=== PATIENT | male | born 1955 | race Caucasian/White ===

== ENCOUNTER 2020-09-14 15:35 | Outpatient (REF) | payer OTHER, SELFPAY ==
--- NOTE | 2020-09-14 15:40 | XR_ITS ---
EXAMINATION: XR CHEST CLINICAL INFORMATION: Cough COMPARISON: Chest radiographs 11/24/2018, 09/23/2018 TECHNIQUE: 2 views of the chest were obtained. FINDINGS: There is hyperinflation/COPD. The lungs are clear. The vascularity is normal. There is no airspace consolidation or groundglass opacity. No effusion. The heart is normal in size. The hilar and mediastinal contours are normal. There are degenerative changes thoracic spine. XR/XR chest 2V IMPRESSION: Hyperinflation. Lungs clear.
== END 2020-09-14 15:36 | disposition home or self-care (01) ==
LOC: HO.HMGCX 15:35
PROVIDERS: PCP Internal Medicine; Visit Provider Nurse Practitioner Family
DX: R05 Cough (principal)
CPT/HCPCS: 71046

== ENCOUNTER 2020-12-08 09:50 | Outpatient (REF) | payer OTHER, SELFPAY ==
[2020-12-08 11:50] LABS: Alanine Aminotransferase 22 U/L (0-40); Albumin Level 4.3 g/dL (3.5-5.0); Alkaline Phosphatase 77 U/L (39-117); Anion Gap 16 (12-20); Aspartate Amino Transferase 33 U/L (5-37); Bilirubin Direct 0.4 mg/dL (0.0-0.5); Blood Urea Nitrogen 19 mg/dL (9-16); Calcium 9.4 mg/dL (8.4-10.2); Carbon Dioxide 26 mmol/L (22-29); Chloride 99 mmol/L (96-108); Estimated Glomerular Filt Rate > 60; Glucose Random 87 mg/dL (60-115); Potassium 5.1 mmol/L (3.3-5.1); Sodium 136 mmol/L (135-145); Total Protein 7.3 g/dL (6.5-8.0)
[2020-12-08 12:22] LABS: Amphetamine Screen Urine Not Detected (Not Detect); Barbiturates, Urine Not Detected (Not Detect); Benzodiazepines Screen Urine Not Detected (Not Detect); Cannabinoid Screen Urine Not Detected (Not Detect); Cocaine Screen Urine Not Detected (Not Detect); Opiate Screen Urine POSITIVE (Not Detect); Phencyclidine Screen Urine Not Detected (Not Detect)
[2020-12-09 08:17] LABS: LDL Cholesterol Direct 75 mg/dL (<100)
[2020-12-10 12:47] LABS: Codeine, Ur NEGATIVE ng/mL (<50); Hydrocodone, Ur NEGATIVE ng/mL (<50); Hydromorphone, Ur NEGATIVE ng/mL (<50); Morphine, Ur NEGATIVE ng/mL (<50); Norhydrocodone, Ur NEGATIVE ng/mL (<50); Noroxycodone, Ur 5199 ng/mL (<50); Oxycodone, Ur 2502 ng/mL (<50); Oxymorphone, Ur 510 ng/mL (<50)
== END 2020-12-08 09:51 | disposition home or self-care (01) ==
LOC: HO.HMGCLDS 09:50
PROVIDERS: PCP Internal Medicine; Visit Provider Internal Medicine
DX: M96.1 Postlaminectomy syndrome, not elsewhere classified (principal); J44.9 Chronic obstructive pulmonary disease, unspecified
CPT/HCPCS: 80048; 80076; 80307; 80364; 80365; 83721

== ENCOUNTER → 2021-02-20 09:45 | Outpatient (BNVA) | payer OTHER, SELFPAY | PROVIDERS: PCP Internal Medicine; Visit Provider Physician Assistant ==

== ENCOUNTER 2021-02-26 12:19 | Outpatient (REF) | payer OTHER, SELFPAY ==
--- NOTE | ~2021-02-26 | XR_ITS ---
EXAMINATION: XR RIBS, RIGHT CLINICAL INFORMATION: Urodynamic COMPARISON: None TECHNIQUE: 3 views of the right ribs were obtained. FINDINGS: The lungs are hyperinflated but clear of acute process. The heart size and pulmonary vascularity is normal. There is mild spondylosis of dorsal spine. Multiple views of right ribs reveal healed right lateral 10th and 11th ribs. There is no acute rib fracture or bony abnormality. The soft tissues are normal. XR/XR ribs RT min 3V w CXR1V IMPRESSION: Unremarkable chest exam. Healed right lateral 10th and 11th rib fractures.
== END 2021-02-26 12:20 | disposition home or self-care (01) ==
LOC: HO.HMGCX 12:19
PROVIDERS: PCP Internal Medicine; Visit Provider Hospitalist
DX: R07.81 Pleurodynia (principal)
CPT/HCPCS: 71101

== ENCOUNTER 2021-04-11 11:10 | Day surgery (SDC) | payer OTHER, SELFPAY ==
--- NOTE | 2021-04-10 12:08 | HO.ANESPROP2 ---
Documented by User: Cora Lopez 04/10/21 12:09 HPI - Anesthesia Eval Consult details Narrative: 65yo M for Upper Endoscopy and Colonoscopy chronic prn opioid PMFSH Active Problems Active Problems: All Active Problems (Updated 02/26/21 @ 12:25 by Christopher Miller DO) Hordeolum externum right upper eyelid (Acute) Rib pain on right side (Acute) Heartburn (Acute) Colon cancer screening (Acute) Muscle spasms of neck (Acute) Flank pain (Acute) Cough (Acute) Chest wall pain (Acute) Pain management (Acute) Opioid dependence (Acute) Hypertension, essential (Acute) GERD (gastroesophageal reflux disease) (Acute) Smokers' cough (Acute) Drug induced constipation (Acute) COPD (chronic obstructive pulmonary disease) (Acute) Tobacco abuse (Acute) Asthma (Acute) Failed back syndrome (Acute) Past Medical History Medical History Asthma COPD (chronic obstructive pulmonary disease) Drug induced constipation Failed back syndrome GERD (gastroesophageal reflux disease) Heartburn Hypertension, essential Muscle spasms of neck Opioid dependence Pain management Smokers' cough Tobacco abuse Family History Family History Father HTN (hypertension) Lung cancer Mother HTN (hypertension) Dementia Maternal Grandmother No problems noted. Maternal Grandfather No problems noted. Paternal Grandfather No problems noted. Paternal Grandmother No problems noted. Brother No problems noted. Brother No problems noted. Daughter No problems noted. Daughter No problems noted. Sister No problems noted. Sister No problems noted. Sister No problems noted. Sister No problems noted. Surgical History Surgical History History of colonoscopy History of fusion of cervical spine History of laminectomy History of repair of laceration History of rotator cuff surgery Social History Social History Household Members: Family Alcohol intake: current Alcohol intake frequency: a few times a month Patient Tobacco Use Status: Current everyday Tobacco user Tobacco use type: Cigarette Cigarette Packs Per Day: 2 Cigarettes Per Day: 40.0 Smoked in Last 30 Days: Yes Use of substances other than those prescribed or required for medical reasons: No Are you DNR?: No Advance Directives: No Advance Directives Information Provided: Yes Nutrition Risks: No Nutritional Risk Poor oral hygiene: No Current occupational status: disabled Meds Allergies Allergy/AdvReac Type Severity Reaction Status Date / Time No Known Allergies Allergy Verified 02/26/21 12:10 Exam Exam Date and Time: April 10, 2021 1208 Assessment and Plan Assessment Anesthesia Assessment: Chart Reviewed Documented by User: Millicent Peguero 04/11/21 13:39 [facility] Past Medical History Medical History Asthma COPD (chronic obstructive pulmonary disease) Drug induced constipation Failed back syndrome GERD (gastroesophageal reflux disease) Heartburn Hypertension, essential Muscle spasms of neck Opioid dependence Pain management Smokers' cough Tobacco abuse Family History Family History Father HTN (hypertension) Lung cancer Mother HTN (hypertension) Dementia Maternal Grandmother No problems noted. Maternal Grandfather No problems noted. Paternal Grandfather No problems noted. Paternal Grandmother No problems noted. Brother No problems noted. Brother No problems noted. Daughter No problems noted. Daughter No problems noted. Sister No problems noted. Sister No problems noted. Sister No problems noted. Sister No problems noted. Surgical History Surgical History History of colonoscopy History of fusion of cervical spine History of laminectomy History of repair of laceration History of rotator cuff surgery Social History Social History Household Members: Family Alcohol intake: current Alcohol intake frequency: a few times a month Patient Tobacco Use Status: Current everyday Tobacco user Tobacco use type: Cigarette Cigarette Packs Per Day: 2 Cigarettes Per Day: 40.0 Smoked in Last 30 Days: Yes Use of substances other than those prescribed or required for medical reasons: No Are you DNR?: No Advance Directives: No Advance Directives Information Provided: Yes Nutrition Risks: No Nutritional Risk Poor oral hygiene: No Current occupational status: disabled Meds Allergies Allergy/AdvReac Type Severity Reaction Status Date / Time No Known Allergies Allergy Verified 02/26/21 12:10 Exam Airway Mallampati Class: II TM Dist: >3cm Neck ROM: Full Heart: RrR Lungs: CtA Assessment and Plan Assessment Anesthesia Assessment: Anesthesia Plan Discussed and Chart Reviewed Final Anesthetic Review NPO: Yes (Sip water medicine) ASA Class: III Final Preanesthetic Review: No Changes in Pt Med Stat and Consent Obtained/Reviewed Patient Risk: Intermediate Procedure Risk: Intermediate Anesthetic Plan Anesthetic Plan: MAC: Disposition: Standard PACU
[2021-04-11 12:27] VITALS: BMI 21.7
[2021-04-11 12:33] VITALS: BP 155/88; PULSE 81; RESP 16; TEMP 36.7; O2SAT 96
[2021-04-11] MEDS: Lactated Ringers 1,000 ML 100 ML IVCONT (12:49)
--- NOTE | 2021-04-11 13:31 | MHC.SHP ---
Pre-Procedural Eval Section B Chief Complaint: Screening, heartburn Relevant Family History (Specify if Yes): No Relevant Social History: Tobacco Use Present Medications: see Short Stay Collaborative assessment Medical History: Significant History (Asthma COPD (chronic obstructive pulmonary disease) Drug induced constipation Failed back syndrome GERD (gastroesophageal reflux disease) Heartburn Hypertension, essential Muscle spasms of neck Opioid dependence Pain management Smokers' cough Tobacco abuse) History of Previous Operations: Relevant previous surgery/procedure and date(s) (History of colonoscopy History of fusion of cervical spine History of laminectomy History of repair of laceration History of rotator cuff surgery) Allergies: Allergies Allergy/AdvReac Type Severity Reaction Status Date / Time No Known Allergies Allergy Verified 02/26/21 12:10 Review of Systems Sugical H&P ROS: Negative: Constitution, Cardiovascular, Respiratory, Neurological, Psychiatric, Hem-Onc, Allergic/Immunologic, Gastrointestinal, Genitourinary, Musculoskeletal, Integumentary, Endocrine and Eyes/Ears/Nose/Throat Exam Surgical H&P Exam: Normal: HEENT, Normal: Heart, Normal: Lungs, Normal: Extremities, Normal: Abdomen, Normal: Skin and Normal: Neurological Plan Diagnosis/Plan: Unchanged I have reviewed the history and physical and performed a pertinent physical examination on my patient. No changes have occurred unless specified.
--- NOTE | 2021-04-11 13:33 | PM.OP ---
Brief Operative Note Date of Service: 04/11/21 Pre-op diagnosis: GERD, colon screening Post-op diagnosis: same Procedure: see op note Surgeon: Ivette Davies MD Anesthesia: MAC Was an M[place]casin Sewer used for this Procedure?: No Estimated blood loss (mL): 0 Condition: stable Disposition: PACU
--- NOTE | 2021-04-11 13:35 | P.OP_ITS ---
Operative Note Operative Note Date of Service: 04/11/21 Narrative: Operative Information Procedure Description: EGD, Colonoscopy FLEXIBLE TRANSORAL UPPER GASTROINTESTINAL ENDOSCOPY AND COLONOSCOPY PROCEDURE NOTE UPPER ENDOSCOPY Consent: Indications for the procedure and potential complications of bleeding, perforation, reaction to medications and missed diagnosis were discussed with the patient and informed consent was obtained. Instrument: Olympus GIF H 190 J mid size upper endoscope Monitoring: Vital signs and clinical assessment, continuous EKG monitoring, Pulse oximetry, Carbon Dioxide monitoring and blood pressure monitoring were done throughout the procedure. Procedure: The patient was placed in the left lateral decubitis position and pre-procedure medications were administered and a bite block was placed. The endoscope was inserted into the mouth and advanced under direct vision to the third part of duodenum. A careful inspection was made as the upper endoscope was withdrawn including a retroflexed examination of the proximal stomach; Findings and interventions are described below. Findings: Larynx:normal Esophagus: GE junction at 38 cm, diaphragm hiatus at 40 cm, 2 cm sliding haital hernia, with mild esophagitis Stomach:Patchy erythema. Biopsies were obtained. Grade 3 flap valve on retroflexed examination of the cardia. LES was lax. Duodenum: mild bulbar duodenitis Intervention: Biopsies as noted above COLONOSCOPY Instrument: Olympus variable stiffness adult scope 190L Colonoscopy Monitoring: Vital signs and clinical assessment, continuous EKG monitoring, Pulse oximetry, Carbon Dioxide monitoring and blood pressure monitoring were done throughout the procedure. Colon withdrawal time was 10 minutes. Procedure: The patient was placed in the left lateral decubitis position and pre-procedure medications were administered. After a digital rectal examination of the ano-rectum, the video colonoscope was inserted into the rectum and advanced through the colon to the cecum The colonoscope was slowly withdrawn in a retrograde panoramic fashion and the colon mucosa was carefully examined including a retroflexed view of the rectum. Findings and interventions are described below. Procedure Difficulty: moderate Findings: [place] diverticulosis, moderate severity, more on left Terminal Ileum-not seen due to poor prep Cecum:normal Ascending Colon: normal Transverse Colon -normal Descending Colon:normal Sigmoid Colon: normal Rectum: Retroflexion with moderate sized internal hemorrhoids, grade I, 10 mm sessile polyp removed with cold snare Anorectum - normal Colon preparation: [place] Bowel Preparation Scale Right colon; 1 Transverse colon: 1 Left colon; 2 (0 = Unprepared colon segment with mucosa not seen due to solid stool that cannot be cleared. 1 = Portion of mucosa of the colon segment seen, but other areas of the colon segment not well seen due to staining, residual stool and/or opaque liquid. 2 = Minor amount of residual staining, small fragments of stool and/or opaque liquid, but mucosa of colon segment seen well. 3 = Entire mucosa of colon segment seen well with no residual staining, small fragments of stool or opaque liquid) Impression and Post Procedure Diagnosis: Endoscopy Findings: hiatal hernia gastritis duodenitis esophagitis, Colonoscopy Findings: polyp internal hemorrhoids diverticular disease Plan: Await Pathology results Repeat Colonoscopy in 6-12 months with 2 days of clear prep next time High fiber diet leaflet avoid straining at stool, epsom salts and sitz bath, anusol supps or cream as needed Above findings were reviewed with the patient and relevant handouts were provided if indicated.
[2021-04-11 14:15] VITALS: BP 117/71; PULSE 62; RESP 16; TEMP 36.5; O2SAT 97
[2021-04-11 14:30] VITALS: BP 145/82; PULSE 70; RESP 16; O2SAT 97
== END 2021-04-11 15:31 | disposition home or self-care (01) ==
PROVIDERS: PCP Internal Medicine; Visit Provider Internal Medicine Gastroenterology
PROC: (CPT 45385; principal; 2021-04-11 13:40)
DX: Z12.11 Encounter for screening for malignant neoplasm of colon (principal); K62.1 Rectal polyp; K57.30 Diverticulosis of large intestine without perforation or abscess without bleeding; K64.0 First degree hemorrhoids; K21.9 Gastro-esophageal reflux disease without esophagitis; K29.50 Unspecified chronic gastritis without bleeding; K29.80 Duodenitis without bleeding; K20.90 Esophagitis, unspecified without bleeding; K44.9 Diaphragmatic hernia without obstruction or gangrene; F17.210 Nicotine dependence, cigarettes, uncomplicated
CPT/HCPCS: 45385; 43239; 88305; 88342

== ENCOUNTER → 2021-04-26 11:26 | Outpatient (BNVA) | payer OTHER, SELFPAY | PROVIDERS: Visit Provider Physician Assistant ==

== ENCOUNTER 2021-05-02 09:34 | Outpatient (REF) | payer OTHER, SELFPAY ==
[2021-05-02 11:24] LABS: MANUAL DIFF FLAG NO
[2021-05-02 11:40] LABS: Basophils Absolute Auto 0.1 X10*3/uL (0.0-0.2); Basophils Percent Auto 0.7 % (0-2); Eosinophils Absolute Auto 0.2 X10*3/uL (0.0-0.4); Eosinophils Percent Auto 2.2 % (0-4); Hemoglobin 14.2 g/dl (14.0-18.0); Imm Gran Abs Auto 0.01 X10*3/uL (0.00-0.03); Imm Gran Pct Auto 0.1 % (0.0-0.4); Lymphocytes Absolute Auto 2.6 X10*3/uL (1.2-4.9); Lymphocytes Percent Auto 35.7 % (20-40); Mean Corpuscular HGB Conc 33.8 g/dl (31.0-36.0); Mean Corpuscular Hemoglobin 33.2 pg (27.0-33.0); Mean Corpuscular Volume 98.1 fL (80-98); Mean Platelet Volume 9.8 fL (9.4-12.4); Monocytes Absolute Auto 0.4 X10*3/uL (0.1-1.2); Monocytes Percent Auto 5.7 % (2-11); Neutrophils Absolute Auto 4.1 X10*3/uL (2.0-8.3); Neutrophils Percent Auto 55.6 % (45-73); Platelet Count 266 X10*3/uL (160-400); Red Blood Count 4.28 X10*6/uL (4.60-5.80); Red Cell Distribution Width 13.2 % (11.0-16.0); White Blood Count 7.3 X10*3/uL (4.8-10.8)
[2021-05-02 11:51] LABS: Alanine Aminotransferase 15 U/L (0-40); Alkaline Phosphatase 91 U/L (39-117); Anion Gap 13 (12-20); Aspartate Amino Transferase 21 U/L (5-37); Bilirubin Total 0.6 mg/dL (0.0-1.0); Blood Urea Nitrogen 21 mg/dL (9-16); Calcium 9.6 mg/dL (8.4-10.2); Carbon Dioxide 28 mmol/L (22-29); Chloride 98 mmol/L (96-108); Estimated Glomerular Filt Rate > 60; Glucose Random 137 mg/dL (60-115); Potassium 4.7 mmol/L (3.3-5.1); Sodium 134 mmol/L (135-145)
[2021-05-02 12:00] LABS: Amphetamine Screen Urine Not Detected (Not Detect); Barbiturates, Urine Not Detected (Not Detect); Benzodiazepines Screen Urine Not Detected (Not Detect); Cannabinoid Screen Urine Not Detected (Not Detect); Cocaine Screen Urine Not Detected (Not Detect); Opiate Screen Urine Not Detected (Not Detect); Phencyclidine Screen Urine Not Detected (Not Detect)
[2021-05-03 07:01] LABS: LDL Cholesterol Direct 87 mg/dL (<100)
== END 2021-05-02 09:35 | disposition home or self-care (01) ==
LOC: HO.HMGCLDS 09:34
PROVIDERS: PCP Internal Medicine; Visit Provider Internal Medicine
DX: I10 Essential (primary) hypertension (principal); J44.9 Chronic obstructive pulmonary disease, unspecified; J45.909 Unspecified asthma, uncomplicated; M96.1 Postlaminectomy syndrome, not elsewhere classified; Z72.0 Tobacco use; F11.20 Opioid dependence, uncomplicated; R52 Pain, unspecified
CPT/HCPCS: 80053; 80307; 80364; 80365; 83721; 85025

== ENCOUNTER 2021-06-22 08:39 | Outpatient (REF) | payer OTHER, SELFPAY ==
--- NOTE | ~2021-06-22 | XR_ITS ---
EXAMINATION: XR HAND/WRIST, RIGHT CLINICAL INFORMATION: Right wrist pain. COMPARISON: None. TECHNIQUE: AP, oblique, and lateral views of the right hand and wrist. FINDINGS: No acute fracture or dislocation. Prominent joint space narrowing with marginal osteophytes at the triscaphe, 1st carpometacarpal, 1st carpometacarpal, and 1st carpometacarpal joints. More mild joint space narrowing with tiny marginal osteophytes scattered throughout the metacarpophalangeal and interphalangeal joints. No osseous erosion. No abnormal soft tissue calcification. 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
== END 2021-06-22 08:40 | disposition home or self-care (01) ==
LOC: HO.HMGCX 08:39
PROVIDERS: PCP Internal Medicine; Visit Provider Internal Medicine
DX: M25.531 Pain in right wrist (principal)
CPT/HCPCS: 73110; 73130

== ENCOUNTER 2021-07-14 09:24 | Emergency (ER) | payer OTHER, SELFPAY ==
--- NOTE | ~2021-07-14 | XR_ITS ---
EXAMINATION: RIGHT HAND AND WRIST, FOREARM AND ELBOW X-RAYS CLINICAL INFORMATION: Pain post fall COMPARISON: Previous right hand and wrist x-ray 06/22/2021 TECHNIQUE: 4 views of the right hand and wrist, 2 views of the right forearm and 2 views of the right elbow FINDINGS: Right hand and wrist: Bone alignment is normal. No acute fracture or dislocation is seen. There may be old trauma to the fifth metacarpal bone. There is arthritis at the fifth ASSISTED joint with joint space narrowing and osteophyte formation. There is arthritis at the first ASSISTED joint and trapezoid trapezium scaphoid joints. There are well-corticated soft tissue ossifications seen over the dorsal wrist on the lateral view likely related to old trauma.There is diffuse soft tissue swelling over the wrist. Right forearm: Bone alignment is normal. No fracture or dislocation is seen. Joint spaces are normal. Soft tissues are normal. Right elbow: There is question of a fracture of the coronoid process of the ulna. No other fracture is seen. Bone alignment is normal. There is a small joint effusion. There is a small osteophyte at the triceps tendon insertion to the olecranon. XR/XR elbow RT min 3V IMPRESSION: Right hand and wrist: Diffuse soft tissue swelling over the wrist. No acute fracture seen. Arthritis. Right forearm: Unremarkable exam Right elbow: Question small avulsion fracture of the coronary process of the ulna. Small elbow joint effusion.
--- NOTE | ~2021-07-14 | CT_ITS ---
EXAMINATION: CT HEAD WITHOUT CONTRAST CLINICAL INFORMATION: Fall. Head injury. COMPARISON: None TECHNIQUE: Contiguous axial imaging was performed from the skull base to vertex without intravenous administration of contrast. This CT examination was performed using dose optimization techniques as appropriate, variously including the following: *Automated exposure control *Adjustment of mA and/or kV according to patient size (this includes techniques or standardized protocols for targeted exams where dose is matched to indication/reason for exam; i.e. extremities or head) *Use of iterative reconstruction technique DLP: 748 mGy-cm FINDINGS: There is no evidence of an extra-axial collection. There is no evidence of intra-axial or extra-axial hemorrhage. Age-related prominence of the ventricles and extra-axial CSF spaces. Fernando-white matter differentiation is normal. No mass, mass effect or infarct is seen. There is laboratory change in the frontal and ethmoid sinuses, left greater than right. There are bilateral nasal bone fractures of uncertain age. No skull fracture is seen. Mastoid air cells and middle ears are clear. CT/CT head/brain wo con IMPRESSION: No acute intracranial findings. Bilateral nasal bone fractures of uncertain age. Inflammatory changes in the frontal and ethmoid sinuses.
--- NOTE | ~2021-07-14 | XR_ITS ---
EXAMINATION: RIGHT HAND AND WRIST, FOREARM AND ELBOW X-RAYS CLINICAL INFORMATION: Pain post fall COMPARISON: Previous right hand and wrist x-ray 06/22/2021 TECHNIQUE: 4 views of the right hand and wrist, 2 views of the right forearm and 2 views of the right elbow FINDINGS: Right hand and wrist: Bone alignment is normal. No acute fracture or dislocation is seen. There may be old trauma to the fifth metacarpal bone. There is arthritis at the fifth LONGTERM joint with joint space narrowing and osteophyte formation. There is arthritis at the first LONGTERM joint and trapezoid trapezium scaphoid joints. There are well-corticated soft tissue ossifications seen over the dorsal wrist on the lateral view likely related to old trauma.There is diffuse soft tissue swelling over the wrist. Right forearm: Bone alignment is normal. No fracture or dislocation is seen. Joint spaces are normal. Soft tissues are normal. Right elbow: There is question of a fracture of the coronoid process of the ulna. No other fracture is seen. Bone alignment is normal. There is a small joint effusion. There is a small osteophyte at the triceps tendon insertion to the olecranon. XR/XR hand wrist RT IMPRESSION: Right hand and wrist: Diffuse soft tissue swelling over the wrist. No acute fracture seen. Arthritis. Right forearm: Unremarkable exam Right elbow: Question small avulsion fracture of the coronary process of the ulna. Small elbow joint effusion.
--- NOTE | ~2021-07-14 | CT_ITS ---
EXAMINATION: CT CERVICAL SPINE WITHOUT CONTRAST CLINICAL INFORMATION: 15 foot fall COMPARISON: Previous cervical spine MRI February 2010 and cervical spine x-ray November 2018 TECHNIQUE: Axial images through the cervical spine without contrast. Sagittal and coronal reconstructions on the technologist workstation were performed. This CT examination was performed using dose optimization techniques as appropriate, variously including the following: *Automated exposure control *Adjustment of mA and/or kV according to patient size (this includes techniques or standardized protocols for targeted exams where dose is matched to indication/reason for exam; i.e. extremities or head) *Use of iterative reconstruction technique DLP: 481 mGy-cm FINDINGS: There is mild curvature of the lower cervical and upper thoracic spine to the left. Alignment is otherwise normal. There is orthopedic hardware seen at C4-C5 and C5-C6 and C6-C7. There is bony ankylosis at the C5-C6 disc space level. Orthopedic hardware appears intact. No fracture or dislocation is seen. There is degenerative spondylosis at C3-C4, C7-T1 and T1-T2. There is bilateral facet arthritis. There are degenerative changes at the C1 dens articulation. Prevertebral soft tissues are normal. There is mild bilateral carotid calcification. CT/CT cervical spine wo con IMPRESSION: Post surgical changes from C4-C5 to C6-C7. Degenerative changes. No fracture or dislocation.
--- NOTE | ~2021-07-14 | XR_ITS ---
EXAMINATION: RIGHT HAND AND WRIST, FOREARM AND ELBOW X-RAYS CLINICAL INFORMATION: Pain post fall COMPARISON: Previous right hand and wrist x-ray 06/22/2021 TECHNIQUE: 4 views of the right hand and wrist, 2 views of the right forearm and 2 views of the right elbow FINDINGS: Right hand and wrist: Bone alignment is normal. No acute fracture or dislocation is seen. There may be old trauma to the fifth metacarpal bone. There is arthritis at the fifth ALF joint with joint space narrowing and osteophyte formation. There is arthritis at the first ALF joint and trapezoid trapezium scaphoid joints. There are well-corticated soft tissue ossifications seen over the dorsal wrist on the lateral view likely related to old trauma.There is diffuse soft tissue swelling over the wrist. Right forearm: Bone alignment is normal. No fracture or dislocation is seen. Joint spaces are normal. Soft tissues are normal. Right elbow: There is question of a fracture of the coronoid process of the ulna. No other fracture is seen. Bone alignment is normal. There is a small joint effusion. There is a small osteophyte at the triceps tendon insertion to the olecranon. XR/XR forearm RT 2V IMPRESSION: Right hand and wrist: Diffuse soft tissue swelling over the wrist. No acute fracture seen. Arthritis. Right forearm: Unremarkable exam Right elbow: Question small avulsion fracture of the coronary process of the ulna. Small elbow joint effusion.
--- NOTE | ~2021-07-14 | CT_ITS ---
EXAMINATION: CT CHEST WITH CONTRAST CLINICAL INFORMATION: 15 foot fall yesterday COMPARISON: Previous chest and right rib x-rays February [address] March 2017 TECHNIQUE: Multidetector volumetric CT imaging of the chest was obtained after the administration of 85 mL of Omnipaque 350 intravenous contrast without immediate adverse reactions. Axial MIP volume rendering provided. Sagittal and coronal reformatted images were obtained. This CT examination was performed using dose optimization techniques as appropriate, variously including the following: *Automated exposure control *Adjustment of mA and/or kV according to patient size (this includes techniques or standardized protocols for targeted exams where dose is matched to indication/reason for exam; i.e. extremities or head) *Use of iterative reconstruction technique DLP: 481 mGy-cm FINDINGS: MOLDER SETTER: Postsurgical changes to the cervical and lumbar spine. LUNGS: There is a 4 mm right lower lobe nodule axial image 298 series 7. This is new from previous exam. Small right upper lobe nodules are stable. The lungs are otherwise clear. MEDIASTINUM: There is mild coronary artery calcification. The mediastinum is otherwise normal. PLEURA: There is no pleural effusion. No pleural mass or thickening. AXILLA: No lymphadenopathy. OSSEOUS STRUCTURES: There are degenerative changes of the spine. There are old bilateral rib fractures. No acute fracture is seen. There are degenerative changes at the shoulder joints. There are postsurgical changes to the lower cervical spine. CT/CT chest w con IMPRESSION: No acute findings. New 4 mm right lower lobe pulmonary nodule from March 2017 exam.
--- NOTE | ~2021-07-14 | CT_ITS ---
EXAMINATION: CT ABDOMEN AND PELVIS WITH CONTRAST CLINICAL INFORMATION: 15 foot fall COMPARISON: Previous CT of the abdomen and pelvis January 2012 TECHNIQUE: Multidetector volumetric images were obtained from the superior aspect of the liver through the pubic symphysis following administration 85 mL of Omnipaque 350 intravenous contrast. Sagittal and coronal reformatted images were obtained on the technologist's workstation. Oral contrast: Yes This CT examination was performed using dose optimization techniques as appropriate, variously including the following: *Automated exposure control *Adjustment of mA and/or kV according to patient size (this includes techniques or standardized protocols for targeted exams where dose is matched to indication/reason for exam; i.e. extremities or head) *Use of iterative reconstruction technique DLP: 454 mGy-cm FINDINGS: LIVER, GALLBLADDER, AND BILIARY TREE: There is a small low-attenuation liver lesion in the central right lobe of the liver measuring 4 mm probably representing a cyst. The liver is otherwise unremarkable. The gallbladder is unremarkable. There is no biliary duct dilatation. PANCREAS: Unremarkable. SPLEEN: Unremarkable. ADRENAL GLANDS: Unremarkable. KIDNEYS AND URETERS: The kidneys are normal in size, shape, and attenuation. No hydronephrosis, hydroureter, or calculi seen. No perinephric stranding. BLADDER: Unremarkable. GASTROINTESTINAL TRACT: There is diverticulosis of the colon. Small and large bowel is otherwise unremarkable. The appendix is unremarkable. The stomach is unremarkable. No ascites or free air is seen. ABDOMINAL WALL: No significant hernia is appreciated. LYMPH NODES: Normal. VASCULAR: Unremarkable. PELVIC VISCERA: Unremarkable. OSSEOUS STRUCTURES: There are old left posterior 10th and 11th rib fractures. No acute fracture is seen. There are postsurgical changes at L5-S1. There is anterior fusion hardware and prosthetic disc interspace her. There is mild anterior subluxation of bowel 5 with respect to S1 that is unchanged. There is a left screw across the L4-L5 facet joint. There is degenerative disc disease at L5-S1. There is lower lumbar spine facet arthritis and there may be an old L5 pars defect. CT/CT abdomen pelvis w con IMPRESSION: No acute findings. Diverticulosis. Postsurgical changes to the lower lumbar spine. Old left posterior lower rib fractures.
[2021-07-14 09:27] VITALS: BP 131/73; PULSE 89; RESP 16; TEMP 36.9; O2SAT 97; BMI 22.3
[2021-07-14 10:00] LABS: MANUAL DIFF FLAG NO
[2021-07-14] MEDS: Acetaminophen 325 MG TABLET 975 MG PO (10:04)
[2021-07-14] MEDS: oxyCODONE HCl Immed Release 5 MG TABLET 10 MG PO (10:04)
[2021-07-14 10:08] LABS: Basophils Percent Auto 0.4 % (0-2); Eosinophils Absolute Auto 0.3 X10*3/uL (0.0-0.4); Eosinophils Percent Auto 3.5 % (0-4); Hematocrit 38.8 % (42-52); Hemoglobin 13.9 g/dl (14.0-18.0); Imm Gran Abs Auto 0.02 X10*3/uL (0.00-0.03); Imm Gran Pct Auto 0.2 % (0.0-0.4); Lymphocytes Absolute Auto 1.8 X10*3/uL (1.2-4.9); Lymphocytes Percent Auto 22.6 % (20-40); Mean Corpuscular HGB Conc 35.8 g/dl (31.0-36.0); Mean Corpuscular Hemoglobin 34.6 pg (27.0-33.0); Mean Corpuscular Volume 96.5 fL (80-98); Mean Platelet Volume 8.8 fL (9.4-12.4); Monocytes Absolute Auto 0.7 X10*3/uL (0.1-1.2); Monocytes Percent Auto 9.2 % (2-11); Neutrophils Absolute Auto 5.2 X10*3/uL (2.0-8.3); Neutrophils Percent Auto 64.1 % (45-73); Platelet Count 266 X10*3/uL (160-400); Red Blood Count 4.02 X10*6/uL (4.60-5.80); Red Cell Distribution Width 12.7 % (11.0-16.0); White Blood Count 8.1 X10*3/uL (4.8-10.8)
[2021-07-14 10:09] LABS: Prothrombin Time 11.3 SEC (9.9-13.0)
[2021-07-14 10:18] LABS: Magnesium 2.5 mg/dL (1.6-2.6)
[2021-07-14 10:20] LABS: Alanine Aminotransferase 22 U/L (0-40); Albumin Level 3.9 g/dL (3.5-5.0); Alkaline Phosphatase 84 U/L (39-117); Anion Gap 15 (12-20); Aspartate Amino Transferase 40 U/L (5-37); Bilirubin Total 0.9 mg/dL (0.0-1.0); Blood Urea Nitrogen 18 mg/dL (9-16); Calcium 9.3 mg/dL (8.4-10.2); Carbon Dioxide 24 mmol/L (22-29); Chloride 102 mmol/L (96-108); Estimated Glomerular Filt Rate > 60; Glucose Random 130 mg/dL (60-115); Potassium 4.6 mmol/L (3.3-5.1); Sodium 136 mmol/L (135-145); Total Protein 6.5 g/dL (6.5-8.0)
[2021-07-14 11:15] VITALS: RESP 19
[2021-07-14] MEDS: iohexoL 350 MG/ML 100 ML INFUS..BTL IV (11:32)
--- NOTE | 2021-07-14 12:13 | ED.FALL ---
HPI - Fall General Chief Complaint: Extremity Problem Stated Complaint: R WRIST R SIDE BACK INJ Time Seen by Provider: 07/14/21 09:37 Source: patient Mode of arrival: ambulatory Limitations: no limitations History of Present Illness HPI Narrative: 65-year-old male presenting to the ED after mechanical fall where he was fishing in the [employer] with a thanh and he slipped and fell backwards approximately 15 ft and since then has been having pain to his right hand/wrist/forearm/elbow and right lower back. He reports he is unsure if he hit his head. Although he reports he did not lose consciousness. He is not on any blood thinners. He denies any symptoms prior to the fall. He denies prolonged down time. He reports pain to right hand/wrist/forearm/elbow and right lower back after the fall otherwise denies any other symptoms. MD complaint: fall Onset (ago): day(s) (Yesterday) Fall from: standing Fall witnessed: yes, by family (His friend he was fishing with) Place fall occurred: street Loss of consciousness: none Prolonged down time: no Symptoms prior to fall: none Context: tripped/slipped Location of injury: back Location of injury - extremities: right: elbow, forearm and hand Severity: severe Severity scale (1-10): >10 Quality: aching Associated symptoms (after fall): other (Only pain to right lower back and right hand/wrist/forearm/elbow) Related Data Previous Rx's Medication Instructions Recorded omeprazole 20 mg capsule,delayed 20 mg PO DAILY #30 cap 02/20/21 release sucralfate 100 mg/mL oral 10 ml PO BID 30 Days #600 ml 02/20/21 suspension (Carafate) albuterol sulfate 90 mcg/actuation 1 inh INHALATION QID PRN 30 Days 03/12/21 aerosol inhaler (ProAir HFA) #18 g amlodipine 10 mg tablet 10 mg PO DAILY 90 Days #90 tab 03/12/21 cetirizine 10 mg tablet 10 mg PO DAILY 90 Days #90 tab 03/12/21 fluticasone propionate 220 1 puff PO BID 30 Days #12 g 03/12/21 mcg/actuation HFA aerosol inhaler cyclobenzaprine 5 mg tablet 5 mg PO BEDTIME PRN 30 Days #30 tab 07/10/21 gabapentin 600 mg tablet 600 mg PO BEDTIME 30 Days #30 tab 07/10/21 lisinopril 40 mg tablet 40 mg PO DAILY 90 Days #90 tab 07/11/21 montelukast 10 mg tablet 10 mg PO DAILY 90 Days #90 tab 07/11/21 oxycodone 10 mg tablet 10 mg PO TID PRN 30 Days #90 tab 07/13/21 acetaminophen 500 mg tablet 1,000 mg PO QID PRN #14 tab 07/14/21 (Tylenol Extra Strength) ibuprofen 800 mg tablet 800 mg PO Q8H PRN #14 tab 07/14/21 lidocaine HCl 4 % topical cream 1 appl TOPICAL BID PRN #120 g 07/14/21 (Aspercreme (lidocaine HCl)) Allergies Allergy/AdvReac Type Severity Reaction Status Date / Time No Known Allergies Allergy Verified 07/13/21 07:50 Review of Systems Review of Systems: Constitutional : No changes in activity, No lethargy, No recent prior head injury, No agitation, No increased fussiness ENT/Mouth : No Ear Pain, No Nasal discharge/drainage Eyes: No Eye Pain, No Swelling, No Redness, No Foreign Body, No Vision Changes Cardiovascular : No Chest Pain, No SOB Respiratory : No Cough Gastrointestinal : No Nausea, No Vomiting, No abdominal Pain Genitourinary : No Dysuria, No Urinary Frequency, No Urinary Incontinence, No Urgency, No Flank Pain Musculoskeletal : Positive joint pain to right hand/wrist/forearm/elbow, positive back pain/injury, No neck stiffness, Skin : No lacerations Neuro : No unsteady gait, No Paresthesias, No Loss of Consciousness, No altered mental status, No Headache Yes all other systems are reviewed and are negative [facility] Past Medical History Attestation statement: The following information was validated with the patient. Medical History Asthma COPD (chronic obstructive pulmonary disease) Drug induced constipation Failed back syndrome GERD (gastroesophageal reflux disease) Heartburn Hypertension, essential Muscle spasms of neck Opioid dependence Pain management Smokers' cough Tobacco abuse Surgical History History of colonoscopy History of fusion of cervical spine History of laminectomy History of repair of laceration History of rotator cuff surgery Family History Family History Father HTN (hypertension) Lung cancer Mother HTN (hypertension) Dementia Maternal Grandmother No problems noted. Maternal Grandfather No problems noted. Paternal Grandfather No problems noted. Paternal Grandmother No problems noted. Brother No problems noted. Brother No problems noted. Daughter No problems noted. Daughter No problems noted. Sister No problems noted. Sister No problems noted. Sister No problems noted. Sister No problems noted. Social History Social History Household Members: Family Housing: House Alcohol intake: current Alcohol intake frequency: a few times a month Patient Tobacco Use Status: Current everyday Tobacco user Tobacco use type: Cigarette Cigarette Packs Per Day: 1 Cigarettes Per Day: 40.0 Advance Directives: No Advance Directives Information Provided: No Current occupational status: disabled Physical Exam Vital Signs: Vital Signs: Last Vital Signs Temp 98.4 F 07/14/21 09:27 Pulse 89 07/14/21 09:27 Resp 19 07/14/21 11:15 BP 131/73 07/14/21 09:27 Pulse Ox 97 07/14/21 09:27 Body Mass Index 22.3 vital signs have been reviewed as normal and appeared to be correct. Blood pressure normal. Heart rate normal. Respiration rate normal. Temperature normal. Oxygen saturation normal. Appearance: Alert. Oriented X3. No acute distress. Head: Normal external exam. Normocephalic. Atraumatic. No Morales signs noted. No raccoon eyes noted. Eyes: PERRLA. EOMI. Conjunctiva and sclera normal. Eyelids normal. ENT: EAC normal. TM's Normal. No septal hematoma noted. No hemotympanum noted. Pharynx normal. Uvula midline. Moist mucous membranes. No trismus noted. No drooling noted. No muffled voice noted. Neck: Normal inspection. Neck supple. FROM. No adenopathy. Thyroid Normal. No meningeal signs. No neck mass noted. CVS: Normal heart rate and rhythm. Heart sound normal. No murmurs noted. Pulses normal throughout. Respiratory: No respiratory distress. Painless inspiration. Breath sounds normal. No wheezes/rales/rhonchi noted. Chest nontender. No accessory muscle usage noted or decreased air movement noted. Abdomen: Soft and nontender. Bowel sounds normal in all 4 quadrants. No distention noted. No organomegaly noted. No visible injury noted. Back: No CVA tenderness. Full range of motion noted. No obvious deformities, or edema. Mild para-spinal muscular tenderness from lumbar region to coccyx. Full ROM in back and lower extremities. 5/5 strength hip extension/flexion, abduction, adduction. Mild Lumbar pain with hip flexion against resistance. Straight leg raise test negative on right; Straight leg raise test negative on left; Reflexes normal ankle and knee bilaterally; EHL motor strength normal bilaterally. No rashes/lesion/induration/fluctuance or signs infection noted. Skin: Skin warm and dry. Normal skin color. Normal skin turgor. No rashes/lesions/lacerations noted. Extremities: Patient with moderate tenderness to palpation to right hand at the dorsal aspect with moderate soft tissue swelling and ecchymosis noted along with the right wrist an anatomical snuffbox along with right forearm and right elbow. No obvious deformities although patient does have limited range of motion. No obvious ligamentous laxity or injury noted. No muscle injury noted. Otherwise all other extremities exhibit normal range of motion and nontender. Neuro: Oriented X 3. No motor deficit. No sensory deficit. Reflexes normal. Patient has a normal steady gait. Course Course Course Narrative: 65-year-old male presenting to the ED with complaints of right hand/wrist/forearm/elbow and lumbar back pain after he had a mechanical fall where he was fishing with a friend and he slipped and fell falling approximately 15 ft backwards while on the ground not from a height in his right arm got caught in between rocks and since then he has been having pain. He is unsure if he hit his head although denies loss of consciousness. He denies being on any blood thinners. He denies any other injuries complaints or concerns at this time. On exam patient is alert and oriented x3. In pain otherwise no other acute distress. No focal neuro deficits are noted. Lungs are clear to auscultation. CV RRR. Abdomen soft nontender no signs of trauma. Patient is in his outpatient to right paraspinous lumbar aspect although no obvious deformities or step-offs noted. Patient is neuro intact bilaterally distally on all 4 extremities. Reflexes intact bilaterally distally in all 4 extremities. Patient with tenderness of patient to right hand/forearm/wrist/elbow with limited range of motion and soft tissue swelling and ecchymosis noted although no obvious ligamentous laxity or obvious deformities or signs of infection. CT scan of brain obtained and revealed bilateral nasal bone fractures of uncertain age and inflammatory agents in the frontal and ethmoid sinuses otherwise no other acute processes. Therefore I printed this resulted out and handed to the patient he reports that he did not hit his nose he fell backwards did not injure his face therefore he believes these are old and he has broken his nose on several occasions. CT scan of cervical spine revealed chronic changes no acute processes were noted. CT scan of chest revealed new 4 mm right lower lobe pulmonary nodule for since March 2017 exam therefore printed this resulted out and gave it to the patient and instructed him to follow-up with his PCP regarding this pulmonary nodule. CT scan of chest and abdomen and pelvis with IV contrast revealed diverticulosis and postsurgical changes to the lower lumbar spine and old left posterior lower rib cage fractures otherwise no other acute processes were noted. This result was also printed out and given to the patient and he was informed about this and he knew about his old rib fractures. X-ray of right hand/wrist/forearm revealed chronic changes and soft tissue swelling although no acute fractures were seen although due to patient having moderate pain and soft tissue swelling will place him in a thumb spica. Right elbow x-ray revealed question for small avulsion fracture of the coronary process of the ulna and a small joint effusion otherwise no other acute processes therefore I consulted with orthopedics physician music assistant Nino and she recommended a sling and follow-up therefore patient was placed in a sling as well. Will DC home with instructions to return if any new or worsening symptoms and instructions to continue taking his previously prescribed 10 mg oxycodone from his pain management as previously prescribed and to return if any new or worsening symptoms. Patient understands agrees with this plan. Procedures Orthopedic Splinting/Casting Injury #1: Side: right Upper Extremity Injury Location: elbow, forearm, wrist and hand Upper Extremity Immobilizer: sling/shoulder immobilizer and thumb spica MDM - Fall Medical Records Attestation: I reviewed the patient's medical records. Lab Data Attestation: I reviewed the patient's lab results. Result diagrams: 07/14/21 09:57 07/14/21 09:57 Labs: Lab Results 07/14/21 07/14/21 07/14/21 Range/Units 09:57 09:57 09:57 WBC 8.1 (4.8-10.8) X10*3/uL RBC 4.02 L (4.60-5.80) X10*6/uL Hgb 13.9 L (14.0-18.0) g/dl Hct 38.8 L (42-52) % MCV 96.5 (80-98) fL MCH 34.6 H (27.0-33.0) pg MCHC 35.8 (31.0-36.0) g/dl RDW 12.7 (11.0-16.0) % Plt Count 266 (160-400) X10*3/uL MPV 8.8 L (9.4-12.4) fL Immature Gran % (Auto) 0.2 (0.0-0.4) % Neut % (Auto) 64.1 (45-73) % Lymph % (Auto) 22.6 (20-40) % Pickett % (Auto) 9.2 (2-11) % Eos % (Auto) 3.5 (0-4) % Baso % (Auto) 0.4 (0-2) % Lymph # (Auto) 1.8 (1.2-4.9) X10*3/uL Pickett # (Auto) 0.7 (0.1-1.2) X10*3/uL Eos # (Auto) 0.3 (0.0-0.4) X10*3/uL Baso # (Auto) 0.0 (0.0-0.2) X10*3/uL Abs Immat Gran (auto) 0.02 (0.00-0.03) X10*3/uL Absolute Neuts (auto) 5.2 (2.0-8.3) X10*3/uL Absolute Nucleated RBC 0.000 (0.0-0.012) X10*3/uL Nucleated RBC % (auto) 0.0 (0.0-0.2) /100WBC PT 11.3 (9.9-13.0) SEC INR 1.0 (0.9-1.1) Sodium (135-145) mmol/L Potassium (3.3-5.1) mmol/L Chloride (96-108) mmol/L Carbon Dioxide (22-29) mmol/L Anion Gap (12-20) BUN (9-16) mg/dL Creatinine (0.5-1.4) mg/dL Estim Creat Clear Calc Estimated GFR Random Glucose (60-115) mg/dL Calcium (8.4-10.2) mg/dL Magnesium 2.5 (1.6-2.6) mg/dL Total Bilirubin (0.0-1.0) mg/dL AST (5-37) U/L ALT (0-40) U/L Alkaline Phosphatase (39-117) U/L Total Protein (6.5-8.0) g/dL Albumin (3.5-5.0) g/dL 07/14/21 Range/Units 09:57 WBC (4.8-10.8) X10*3/uL RBC (4.60-5.80) X10*6/uL Hgb (14.0-18.0) g/dl Hct (42-52) % MCV (80-98) fL MCH (27.0-33.0) pg MCHC (31.0-36.0) g/dl RDW (11.0-16.0) % Plt Count (160-400) X10*3/uL MPV (9.4-12.4) fL Immature Gran % (Auto) (0.0-0.4) % Neut % (Auto) (45-73) % Lymph % (Auto) (20-40) % Pickett % (Auto) (2-11) % Eos % (Auto) (0-4) % Baso % (Auto) (0-2) % Lymph # (Auto) (1.2-4.9) X10*3/uL Pickett # (Auto) (0.1-1.2) X10*3/uL Eos # (Auto) (0.0-0.4) X10*3/uL Baso # (Auto) (0.0-0.2) X10*3/uL Abs Immat Gran (auto) (0.00-0.03) X10*3/uL Absolute Neuts (auto) (2.0-8.3) X10*3/uL Absolute Nucleated RBC (0.0-0.012) X10*3/uL Nucleated RBC % (auto) (0.0-0.2) /100WBC PT (9.9-13.0) SEC INR (0.9-1.1) Sodium 136 (135-145) mmol/L Potassium 4.6 (3.3-5.1) mmol/L Chloride 102 (96-108) mmol/L Carbon Dioxide 24 (22-29) mmol/L Anion Gap 15 (12-20) BUN 18 H (9-16) mg/dL Creatinine 1.02 (0.5-1.4) mg/dL Estim Creat Clear Calc 76.0 Estimated GFR > 60 Random Glucose 130 H (60-115) mg/dL Calcium 9.3 (8.4-10.2) mg/dL Magnesium (1.6-2.6) mg/dL Total Bilirubin 0.9 (0.0-1.0) mg/dL AST 40 H D (5-37) U/L ALT 22 (0-40) U/L Alkaline Phosphatase 84 (39-117) U/L Total Protein 6.5 (6.5-8.0) g/dL Albumin 3.9 (3.5-5.0) g/dL Imaging Data Hand/wrist/forearm/elbow x-ray of right side: Attestation: I personally reviewed and interpreted this imaging study as follows: Radiologist's impression: FINDINGS: Right hand and wrist: Bone alignment is normal. No acute fracture or dislocation is seen. There may be old trauma to the fifth metacarpal bone. There is arthritis at the fifth LONGTERM joint with joint space narrowing and osteophyte formation. There is arthritis at the first LONGTERM joint and trapezoid trapezium scaphoid joints. There are well-corticated soft tissue ossifications seen over the dorsal wrist on the lateral view likely related to old trauma.There is diffuse soft tissue swelling over the wrist. Right forearm: Bone alignment is normal. No fracture or dislocation is seen. Joint spaces are normal. Soft tissues are normal. Right elbow: There is question of a fracture of the coronoid process of the ulna. No other fracture is seen. Bone alignment is normal. There is a small joint effusion. There is a small osteophyte at the triceps tendon insertion to the olecranon. XR/XR hand wrist RT IMPRESSION: Right hand and wrist: Diffuse soft tissue swelling over the wrist. No acute fracture seen. Arthritis. ? Right forearm: Unremarkable exam ? Right elbow: Question small avulsion fracture of the coronary process of the ulna. Small elbow joint effusion.? CT scan of brain without contrast: Attestation: I personally reviewed and interpreted this imaging study as follows: Radiologist's impression: FINDINGS: There is no evidence of an extra-axial collection. There is no evidence of intra-axial or extra-axial hemorrhage. Age-related prominence of the ventricles and extra-axial CSF spaces. Fernando-white matter differentiation is normal. No mass, mass effect or infarct is seen. There is laboratory change in the frontal and ethmoid sinuses, left greater than right. There are bilateral nasal bone fractures of uncertain age. No skull fracture is seen. Mastoid air cells and middle ears are clear. CT/CT head/brain wo con IMPRESSION: No acute intracranial findings. Bilateral nasal bone fractures of uncertain age. Inflammatory changes in the frontal and ethmoid sinuses. CT scan of cervical spine without contrast: Attestation: I personally reviewed and interpreted this imaging study as follows: Radiologist's impression: FINDINGS: There is mild curvature of the lower cervical and upper thoracic spine to the left. Alignment is otherwise normal. There is orthopedic hardware seen at C4-C5 and C5-C6 and C6-C7. There is bony ankylosis at the C5-C6 disc space level. Orthopedic hardware appears intact. No fracture or dislocation is seen. There is degenerative spondylosis at C3-C4, C7-T1 and T1-T2. There is bilateral facet arthritis. There are degenerative changes at the C1 dens articulation. Prevertebral soft tissues are normal. There is mild bilateral carotid calcification. CT/CT cervical spine wo con IMPRESSION: Post surgical changes from C4-C5 to C6-C7. Degenerative changes. No fracture or dislocation.? CT scan of chest with contrast: Attestation: I personally reviewed and interpreted this imaging study as follows: Radiologist's impression: FINDINGS: CRYSTAL FINISHER: Postsurgical changes to the cervical and lumbar spine. LUNGS: There is a 4 mm right lower lobe nodule axial image 298 series 7. This is new from previous exam. Small right upper lobe nodules are stable. The lungs are otherwise clear.? MEDIASTINUM: There is mild coronary artery calcification. The mediastinum is otherwise normal.? PLEURA: There is no pleural effusion. No pleural mass or thickening.? AXILLA: No lymphadenopathy.? OSSEOUS STRUCTURES: There are degenerative changes of the spine. There are old bilateral rib fractures. No acute fracture is seen. There are degenerative changes at the shoulder joints. There are postsurgical changes to the lower cervical spine. CT/CT chest w con IMPRESSION: No acute findings. New 4 mm right lower lobe pulmonary nodule from March [address] scan of abdomen and pelvis with IV contrast: Attestation: I personally reviewed and interpreted this imaging study as follows: Radiologist's impression: FINDINGS: LIVER, GALLBLADDER, AND BILIARY TREE: There is a small low-attenuation liver lesion in the central right lobe of the liver measuring 4 mm probably representing a cyst. The liver is otherwise unremarkable. The gallbladder is unremarkable. There is no biliary duct dilatation. PANCREAS: Unremarkable.? SPLEEN: Unremarkable.? ADRENAL GLANDS: Unremarkable.? KIDNEYS AND URETERS: The kidneys are normal in size, shape, and attenuation. No hydronephrosis, hydroureter, or calculi seen. No perinephric stranding. ? BLADDER: Unremarkable.? GASTROINTESTINAL TRACT: There is diverticulosis of the colon. Small and large bowel is otherwise unremarkable. The appendix is unremarkable. The stomach is unremarkable. No ascites or free air is seen.? ABDOMINAL WALL: No significant hernia is appreciated.? LYMPH NODES: Normal. VASCULAR: Unremarkable. PELVIC VISCERA: Unremarkable.? OSSEOUS STRUCTURES: There are old left posterior 10th and 11th rib fractures. No acute fracture is seen. There are postsurgical changes at L5-S1. There is anterior fusion hardware and prosthetic disc interspace her. There is mild anterior subluxation of bowel 5 with respect to S1 that is unchanged. There is a left screw across the L4-L5 facet joint. There is degenerative disc disease at L5-S1. There is lower lumbar spine facet arthritis and there may be an old L5 pars defect. CT/CT abdomen pelvis w con IMPRESSION: No acute findings. Diverticulosis. Postsurgical changes to the lower lumbar spine. Old left posterior lower rib fractures.? Critical Care Time Critical Care Time Critical Care Time: Yes Total Critical Care Time: 60 Attestation: I personally attest to this time spent taking care of the patient Discharge Plan Discharge Clinical Impression: Fall, Sprain and strain of right hand, Right wrist sprain, Lumbar strain, Closed fracture of right elbow, Incidental pulmonary nodule, Benign liver cyst Patient Disposition: Home, Self-Care Instructions: Elbow Fracture (ED), How to Use a Sling (ED), Low Back Strain (ED), Pulmonary Nodules (ED), Wrist Sprain (ED) Additional Instructions: You are in pain management therefore I cannot give you narcotic prescription please call them and explained to them that you have a right elbow fracture. Return if any new or worsening symptoms and follow-up with orthopedics. Prescriptions: New lidocaine HCl [Aspercreme (lidocaine HCl)] 4 % cream 1 appl topical BID PRN (Reason: pain) Qty: 120 RF: 0 ibuprofen 800 mg tablet 800 mg PO Q8H PRN (Reason: pain) Qty: 14 RF: 0 acetaminophen [Tylenol Extra Strength] 500 mg tablet 1,000 mg PO QID PRN (Reason: fever or pain) Qty: 14 RF: 0 No Action fluticasone propionate 220 mcg/actuation HFA aerosol inhaler 1 puff PO BID 30 Days Qty: 12 RF: 0 cetirizine 10 mg tablet 10 mg PO DAILY 90 Days Qty: 90 RF: 0 amlodipine 10 mg tablet 10 mg PO DAILY 90 Days Qty: 90 RF: 0 albuterol sulfate [ProAir HFA] 90 mcg/actuation HFA aerosol inhaler 1 inh inhalation QID PRN (Reason: shortness of breath or wheezing) 30 Days Qty: 18 RF: 5 gabapentin 600 mg tablet 600 mg PO BEDTIME 30 Days Qty: 30 RF: 0 cyclobenzaprine 5 mg tablet 5 mg PO BEDTIME PRN (Reason: muscle spasm) 30 Days Qty: 30 RF: 0 montelukast 10 mg tablet 10 mg PO DAILY 90 Days Qty: 90 RF: 0 lisinopril 40 mg tablet 40 mg PO DAILY 90 Days Qty: 90 RF: 0 oxycodone 10 mg tablet 10 mg PO TID PRN (Reason: pain) 30 Days Qty: 90 RF: 0 omeprazole 20 mg capsule,delayed release(DR/EC) 20 mg PO DAILY Qty: 30 RF: 5 sucralfate [Carafate] 100 mg/mL suspension 10 ml PO BID 30 Days Qty: 600 RF: 2 Referrals: Jenny Machuca MD [Physician] - 07/17/21 (To make a follow-up appointment within the next week) Lloyd Woods MD [Primary Care Provider] - 2 days Print Language: Citizen Of [place]
== END 2021-07-14 12:44 | disposition home or self-care (01) ==
PROVIDERS: Physician Assistant Medical; Emergency Provider Student in an Organized Health Care Education/Training Program; PCP Internal Medicine
DX: S52.044A Nondisplaced fracture of coronoid process of right ulna, initial encounter for closed fracture (principal); S39.012A Strain of muscle, fascia and tendon of lower back, initial encounter; S63.91XA Sprain of unspecified part of right wrist and hand, initial encounter; W01.198A Fall on same level from slipping, tripping and stumbling with subsequent striking against other object, initial encounter; R91.8 Other nonspecific abnormal finding of lung field; K76.89 Other specified diseases of liver; I10 Essential (primary) hypertension; F11.20 Opioid dependence, uncomplicated; J41.0 Simple chronic bronchitis; F17.210 Nicotine dependence, cigarettes, uncomplicated; Y93.19 Activity, other involving water and watercraft; Y92.828 Other wilderness area as the place of occurrence of the external cause; Y99.8 Other external cause status
CPT/HCPCS: 29125; 36415; 70450; 71260; 72125; 73080; 73090; 73110; 73130; 74177; 80053; 83735; 85025; 85610; 99284; 99291; Q9967

== ENCOUNTER → 2021-08-15 14:21 | Outpatient (BNVA) | payer OTHER, SELFPAY | PROVIDERS: PCP Internal Medicine; Visit Provider Internal Medicine Pulmonary Disease | DX: R91.1 Solitary pulmonary nodule (principal); J44.9 Chronic obstructive pulmonary disease, unspecified | CPT/HCPCS: 99202 ==

== ENCOUNTER 2021-10-24 10:11 | Outpatient (REF) | payer OTHER, SELFPAY ==
[2021-10-24 12:02] LABS: Amphetamine Screen Urine Not Detected (Not Detect); Barbiturates, Urine Not Detected (Not Detect); Benzodiazepines Screen Urine Not Detected (Not Detect); Cannabinoid Screen Urine Not Detected (Not Detect); Cocaine Screen Urine Not Detected (Not Detect); Fentanyl, urine Not Detected (Not Detect); Opiate Screen Urine Not Detected (Not Detect); Phencyclidine Screen Urine Not Detected (Not Detect)
[2021-10-24 12:16] LABS: Alanine Aminotransferase 18 U/L (0-40); Albumin Level 4.1 g/dL (3.5-5.0); Alkaline Phosphatase 94 U/L (39-117); Anion Gap 13 (12-20); Aspartate Amino Transferase 27 U/L (5-37); Bilirubin Total 0.6 mg/dL (0.0-1.0); Blood Urea Nitrogen 18 mg/dL (9-16); Calcium 9.3 mg/dL (8.4-10.2); Carbon Dioxide 26 mmol/L (22-29); Chloride 100 mmol/L (96-108); Estimated Glomerular Filt Rate > 60; Glucose Random 122 mg/dL (60-115); Potassium 4.9 mmol/L (3.3-5.1); Sodium 134 mmol/L (135-145); Total Protein 7.3 g/dL (6.5-8.0)
[2021-10-26 04:36] LABS: LDL Cholesterol Direct 92 mg/dL (<100)
== END 2021-10-24 10:12 | disposition home or self-care (01) ==
LOC: HO.HMGCLDS 10:11
PROVIDERS: PCP Internal Medicine; Visit Provider Internal Medicine
DX: F11.20 Opioid dependence, uncomplicated (principal); I10 Essential (primary) hypertension; J44.9 Chronic obstructive pulmonary disease, unspecified; M96.1 Postlaminectomy syndrome, not elsewhere classified; Z72.0 Tobacco use
CPT/HCPCS: 80053; 80307; 80364; 80365; 83721

== ENCOUNTER → 2022-01-02 09:55 | Outpatient (BNVA) | payer OTHER, SELFPAY | PROVIDERS: PCP Internal Medicine; Visit Provider Internal Medicine Pulmonary Disease | DX: J44.9 Chronic obstructive pulmonary disease, unspecified (principal); R91.1 Solitary pulmonary nodule | CPT/HCPCS: 99212 ==

== ENCOUNTER 2022-02-05 06:51 | Outpatient (REF) | payer OTHER, SELFPAY ==
--- NOTE | ~2022-02-05 | CT_ITS ---
EXAMINATION: CT CHEST WITHOUT CONTRAST CLINICAL INFORMATION: Solitary pulmonary nodule. COMPARISON: CT chest 07/14/2021. TECHNIQUE: Multidetector volumetric CT imaging of the chest was done. Axial MIP volume rendering provided. Sagittal and coronal reformatted images were obtained. This CT examination was performed using dose optimization techniques as appropriate, variously including the following: *Automated exposure control *Adjustment of mA and/or kV according to patient size (this includes techniques or standardized protocols for targeted exams where dose is matched to indication/reason for exam; i.e. extremities or head) *Use of iterative reconstruction technique DLP: 139 mGy-cm FINDINGS: PATIENT OBSERVATION ASSISTANT: Hyperinflated lungs. LUNGS: The lungs are hyperinflated. There are small micronodules seen in the right upper lobe better seen on 8 mm thick axial images, 2 mm nodule right upper lobe axial image 217/5, focal thickening right major fissure image 250/5, 4 mm nodule paravascular axial image 264/5. Previously seen 4 mm nodule right lower lobe now measures 2 mm on axial image 277/5. No additional nodules seen. No acute consolidation. MEDIASTINUM: The thyroid lobes are symmetric and normal. The central trachea and bronchi are widely patent. Heart size and the great vessels are normal caliber. No pericardial effusion seen. No abnormal size mediastinal or hilar lymph nodes seen. PLEURA: There is no pleural effusion. No pleural mass or thickening. AXILLA: No lymphadenopathy. UPPER ABDOMEN: Visualized liver, spleen, pancreas and bilateral adrenal glands are unremarkable. OSSEOUS STRUCTURES: There is mild ventral spondylosis mid dorsal spine. No lytic process. CT/CT chest wo con IMPRESSION: Stable multiple pulmonary nodules. Previously seen 4 mm nodule right lower lobe now measures 2 mm. There is a 4 mm nodule seen in the right lower lobe centrally which is unchanged to previous study. No new pulmonary nodules seen. Fleischner guidelines were followed.
--- NOTE | 2022-02-05 13:17 | PFT_ITS ---
Forced vital capacity 107%, FEV1 96%. FEV1/FVC is 67. FEF 25/75 61% and MVV 92%. Post bronchodilator therapy, there is no significant change. Total lung capacity 104% and residual volume 96%. Diffusion capacity is 54%. CONCLUSION: Mild degree of obstructive airway disorder is noted. No response to bronchodilator therapy. Compared to the study of 02/13/2015, the diffusion capacity is significantly decreased, but no other significant changes are noted. Clinical correlation recommended. Carlos Rudolph MD MSB/MODL / [id number]
== END 2022-02-05 06:52 | disposition home or self-care (01) ==
LOC: HO.RESP 06:51
PROVIDERS: PCP Internal Medicine; Visit Provider Internal Medicine Pulmonary Disease
DX: R91.1 Solitary pulmonary nodule (principal); J44.9 Chronic obstructive pulmonary disease, unspecified
CPT/HCPCS: 71250; 94060; 94727; 94729

== ENCOUNTER → 2022-02-12 08:51 | Outpatient (BNVA) | payer OTHER, SELFPAY | PROVIDERS: PCP Internal Medicine; Visit Provider Internal Medicine Pulmonary Disease | DX: J44.9 Chronic obstructive pulmonary disease, unspecified (principal); R91.1 Solitary pulmonary nodule | CPT/HCPCS: 99212 ==

== ENCOUNTER 2022-05-03 08:27 | Outpatient (REF) | payer OTHER, SELFPAY ==
[2022-05-03 11:12] LABS: MANUAL DIFF FLAG NO
[2022-05-03 11:20] LABS: Basophils Absolute Auto 0.1 X10*3/uL (0.0-0.2); Basophils Percent Auto 0.8 % (0-2); Eosinophils Absolute Auto 0.3 X10*3/uL (0.0-0.4); Eosinophils Percent Auto 4.3 % (0-4); Imm Gran Abs Auto 0.02 X10*3/uL (0.00-0.03); Imm Gran Pct Auto 0.3 % (0.0-0.4); Lymphocytes Absolute Auto 2.7 X10*3/uL (1.2-4.9); Lymphocytes Percent Auto 34.9 % (20-40); Mean Corpuscular HGB Conc 34.1 g/dl (31.0-36.0); Mean Corpuscular Hemoglobin 33.6 pg (27.0-33.0); Mean Corpuscular Volume 98.7 fL (80.0-98.0); Mean Platelet Volume 9.6 fL (9.4-12.4); Monocytes Absolute Auto 0.5 X10*3/uL (0.1-1.2); Monocytes Percent Auto 6.9 % (2-11); Neutrophils Absolute Auto 4.1 x10*3/uL (2.0-8.3); Neutrophils Percent Auto 52.8 % (45-73); Platelet Count 317 X10*3/uL (160-400); Red Blood Count 4.46 X10*6/uL (4.60-5.80); Red Cell Distribution Width 12.2 % (11.0-16.0); White Blood Count 7.7 X10*3/uL (4.8-10.8)
[2022-05-03 11:48] LABS: Alanine Aminotransferase 20 U/L (0-40); Albumin Level 4.2 g/dL (3.5-5.0); Alkaline Phosphatase 74 U/L (39-117); Anion Gap 10 (12-20); Aspartate Amino Transferase 19 U/L (5-37); Bilirubin Total 0.5 mg/dL (0.0-1.0); Blood Urea Nitrogen 20 mg/dL (9-16); Calcium 9.7 mg/dL (8.4-10.2); Carbon Dioxide 28 mmol/L (22-29); Chloride 103 mmol/L (96-108); Estimated Glomerular Filt Rate > 60; Glucose Random 106 mg/dL (60-115); Potassium 4.9 mmol/L (3.3-5.1); Sodium 136 mmol/L (135-145); Total Protein 7.1 g/dL (6.5-8.0)
[2022-05-03 11:53] LABS: Amphetamine Screen Urine Not Detected (Not Detect); Barbiturates, Urine Not Detected (Not Detect); Benzodiazepines Screen Urine Not Detected (Not Detect); Cannabinoid Screen Urine Not Detected (Not Detect); Cocaine Screen Urine Not Detected (Not Detect); Fentanyl, urine Not Detected (Not Detect); Opiate Screen Urine Not Detected (Not Detect); Phencyclidine Screen Urine Not Detected (Not Detect)
[2022-05-03 12:18] LABS: Prostate Specific Antigen 5.93 ng/mL (<0.05-4.0); TSH reflex Free T4 0.85 uIU/mL (0.32-4.0)
[2022-05-04 19:02] LABS: LDL Cholesterol Direct 108 mg/dL (<100)
[2022-05-09 09:06] LABS: Codeine, Ur NEGATIVE; Hydrocodone, Ur NEGATIVE; Hydromorphone, Ur NEGATIVE; Morphine, Ur NEGATIVE; Norhydrocodone, Ur NEGATIVE
[2022-05-09 09:07] LABS: Oxycodone, Ur 1463; Oxymorphone, Ur 304
[2022-05-09 09:08] LABS: Noroxycodone, Ur 2755
== END 2022-05-03 08:28 | disposition home or self-care (01) ==
LOC: HO.HMGCLDS 08:27
PROVIDERS: PCP Internal Medicine; Visit Provider Internal Medicine
DX: Z00.01 Encounter for general adult medical examination with abnormal findings (principal); Z12.5 Encounter for screening for malignant neoplasm of prostate; F11.20 Opioid dependence, uncomplicated; I10 Essential (primary) hypertension; J44.9 Chronic obstructive pulmonary disease, unspecified; K21.9 Gastro-esophageal reflux disease without esophagitis; M96.1 Postlaminectomy syndrome, not elsewhere classified; R52 Pain, unspecified; R35.1 Nocturia; Z72.0 Tobacco use
CPT/HCPCS: 80053; 80307; 80364; 80365; 83721; 84153; 84443; 85025

== ENCOUNTER 2022-08-06 12:49 | Outpatient (REF) | payer MEDICARE, MEDICAID, SELFPAY ==
--- NOTE | ~2022-08-06 | XR_ITS ---
EXAMINATION: XR FOOT, LEFT CLINICAL INFORMATION: Pain in left foot COMPARISON: None TECHNIQUE: AP, lateral, and oblique views of the left foot. FINDINGS: No acute visible fracture or dislocation. Multi joint degenerative changes greatest at the first metatarsal phalangeal joint. Small plantar calcaneal heel spur. Enthesopathy Achilles tendon insertion site. Mild spurring the dorsal midfoot. Joint spaces and alignment are maintained. Soft tissues are unremarkable. XR/XR foot LT min 3V IMPRESSION: 1. No acute visible fracture or dislocation. 2. Multi joint degenerative changes greatest at the first metatarsal phalangeal joint.
[2022-08-06 14:36] LABS: Alanine Aminotransferase 25 U/L (0-40); Albumin Level 4.3 g/dL (3.5-5.0); Alkaline Phosphatase 86 U/L (39-117); Anion Gap 17 (12-20); Aspartate Amino Transferase 28 U/L (5-37); Bilirubin Total 0.4 mg/dL (0.0-1.0); Blood Urea Nitrogen 19 mg/dL (9-16); Calcium 9.8 mg/dL (8.4-10.2); Carbon Dioxide 25 mmol/L (22-29); Chloride 100 mmol/L (96-108); Estimated Glomerular Filt Rate > 60; Glucose Random 95 mg/dL (60-115); Potassium 4.7 mmol/L (3.3-5.1); Sodium 137 mmol/L (135-145); Total Protein 7.2 g/dL (6.5-8.0)
[2022-08-06 14:59] LABS: Amphetamine Screen Urine Not Detected (Not Detect); Barbiturates, Urine Not Detected (Not Detect); Benzodiazepines Screen Urine Not Detected (Not Detect); Cannabinoid Screen Urine Not Detected (Not Detect); Cocaine Screen Urine Not Detected (Not Detect); Fentanyl, urine Not Detected (Not Detect); Opiate Screen Urine POSITIVE (Not Detect); Phencyclidine Screen Urine Not Detected (Not Detect)
[2022-08-14 08:27] LABS: Codeine, Ur NEGATIVE; Hydrocodone, Ur NEGATIVE; Oxycodone, Ur 1728
[2022-08-14 08:28] LABS: Hydromorphone, Ur NEGATIVE; Morphine, Ur NEGATIVE; Oxymorphone, Ur 564
[2022-08-14 08:29] LABS: Norhydrocodone, Ur NEGATIVE; Noroxycodone, Ur 4458
== END 2022-08-06 12:50 | disposition home or self-care (01) ==
LOC: HO.HMGCLDS 12:49
PROVIDERS: PCP Internal Medicine; Visit Provider Internal Medicine
DX: F11.20 Opioid dependence, uncomplicated (principal); I10 Essential (primary) hypertension; J44.9 Chronic obstructive pulmonary disease, unspecified; K21.9 Gastro-esophageal reflux disease without esophagitis; M96.1 Postlaminectomy syndrome, not elsewhere classified; R52 Pain, unspecified; Z72.0 Tobacco use
CPT/HCPCS: 73630; 80053; 80307; 80364; 80365

== ENCOUNTER → 2022-09-10 13:50 | Outpatient (BNVA) | payer MEDICARE, MEDICAID, SELFPAY | PROVIDERS: PCP Internal Medicine; Visit Provider Internal Medicine Pulmonary Disease | DX: J44.9 Chronic obstructive pulmonary disease, unspecified (principal); R91.1 Solitary pulmonary nodule; R97.20 Elevated prostate specific antigen [PSA]; R35.1 Nocturia; R68.82 Decreased libido | CPT/HCPCS: 51798; 99202; 99212 ==

== ENCOUNTER 2022-10-09 12:22 | Outpatient (REF) | payer MEDICARE, MEDICAID, SELFPAY ==
[2022-10-09 14:28] LABS: PSA,Total (Free>4and<10) 5.77 ng/mL (0.00-4.00)
[2022-10-11 09:09] LABS: Free Prostate Spec Ag 0.6 ng/mL; Percent Free Prostate Spec Ag 11 % (calc) (>25); Prostate Specific Ag Total 5.4 ng/mL (< OR = 4.0)
[2022-10-15 19:03] LABS: Testosterone, Free 64.2 pg/mL (35.0-155.0); Testosterone, Total 452 ng/dL (250-1100)
== END 2022-10-09 12:23 | disposition home or self-care (01) ==
LOC: HO.HMGCLDS 12:22
PROVIDERS: PCP Internal Medicine; Visit Provider Urology
DX: Z12.5 Encounter for screening for malignant neoplasm of prostate (principal); R97.20 Elevated prostate specific antigen [PSA]; R68.82 Decreased libido
CPT/HCPCS: 36415; 84153; 84154; 84402; 84403

== ENCOUNTER → 2022-10-30 15:53 | Outpatient (BNVA) | payer MEDICARE, MEDICAID, SELFPAY | PROVIDERS: PCP Internal Medicine; Visit Provider Urology | DX: R97.20 Elevated prostate specific antigen [PSA] (principal) | CPT/HCPCS: Q3014 ==

== ENCOUNTER 2022-11-21 07:23 | Outpatient (REF) | payer MEDICARE, OTHER, MEDICAID, SELFPAY ==
[2022-11-21 07:57] VITALS: BP 113/69; PULSE 62; RESP 16; TEMP 36.3; O2SAT 98
[2022-11-21 07:58] VITALS: BMI 23.7
--- NOTE | 2022-11-21 08:32 | W.PM.OPN ---
Operative Note Operative Note Date of Service: 11/21/22 Narrative: Preoperative diagnosis: Elevated PSA Postoperative diagnosis: Elevated PSA Procedure: 1. transrectal ultrasound measurement of prostate 2. transrectal ultrasound-guided pudendal nerve block 3. transrectal ultrasound-guided prostate biopsy 12 core Surgeon: Dr. Samy Flower Anesthetic: Local Indications for procedure: Elevated PSA 5.4 F 11% Procedure: After informed consent was verified, the patient was brought into the procedure area and lay left-hand side down on the table. Patient identity confirmed. Perioperative antibiotics confirmed. Safety pause time out performed. ALEK performed to dilate rectal sphincter Iodine 10cc with Gel was placed per rectum Ultrasound probe was placed per rectum The prostate was measured in 3 dimensions Total volume equals 40 gm left paraurethral cystic structures were noted No calcifications were noted at the surgical margin The prostate was otherwise homogeneous in nature An ultrasound-guided pudendal nerve block was performed using 10 cc of 1% lidocaine. 8 cc was placed at the base and 2 cc of the apex. A 12 core biopsy was performed with 6 cores each side. Two cores were taken at the apex, mid and base. Cores were spaced between lateral and medial. He tolerated the procedure well. Was able to ambulate to bathroom after 5 minutes. Printed instructions regarding antibiotic use and common side effects such as low-grade temperature, potential infection and bleeding were given Pathology: 12 core prostate biopsy.
[2022-11-21 08:35] VITALS: BP 122/66; PULSE 69; RESP 16; O2SAT 98
== END 2022-11-21 07:24 | disposition home or self-care (01) ==
LOC: HO.MS 07:23
PROVIDERS: PCP Internal Medicine; Visit Provider Urology
PROC: (CPT 55700; principal; 2022-11-21 08:00)
DX: C61 Malignant neoplasm of prostate (principal); R97.20 Elevated prostate specific antigen [PSA]
CPT/HCPCS: 55700; 76942; 88305; 88344

== ENCOUNTER → 2022-11-28 11:17 | Outpatient (BNVA) | payer OTHER, SELFPAY | PROVIDERS: PCP Internal Medicine; Visit Provider Urology | DX: C61 Malignant neoplasm of prostate (principal) | CPT/HCPCS: Q3014 ==

== ENCOUNTER → 2022-12-13 08:50 | Outpatient (BNVA) | payer SELFPAY | PROVIDERS: PCP Internal Medicine; Visit Provider Urology | DX: Z13.89 Encounter for screening for other disorder (principal) ==

== ENCOUNTER → 2023-01-09 10:57 | Outpatient (BNVA) | payer MEDICARE, MEDICAID, SELFPAY | PROVIDERS: PCP Internal Medicine; Visit Provider Urology | DX: C61 Malignant neoplasm of prostate (principal) | CPT/HCPCS: Q3014 ==

== ENCOUNTER 2023-01-13 14:03 | Outpatient (REF) | payer MEDICARE, MEDICAID, SELFPAY ==
--- NOTE | ~2023-01-13 | CT_ITS ---
EXAMINATION: CT CHEST WITHOUT CONTRAST CLINICAL INFORMATION: Solitary pulmonary nodule. COMPARISON: Chest CT 02/05/2022. TECHNIQUE: Multidetector volumetric CT imaging of the chest was done. Axial MIP volume rendering provided. Sagittal and coronal reformatted images were obtained. This CT examination was performed using dose optimization techniques as appropriate, variously including the following: *Automated exposure control *Adjustment of mA and/or kV according to patient size (this includes techniques or standardized protocols for targeted exams where dose is matched to indication/reason for exam; i.e. extremities or head) *Use of iterative reconstruction technique DLP: 157 mGy-cm FINDINGS: The heart is normal in size. Coronary artery calcifications are present. There is no pericardial effusion. Normal caliber thoracic aorta. No gross mediastinal or hilar lymphadenopathy appreciated on today's noncontrast imaging. No pathologically enlarged axillary lymph nodes. Central airways are patent. Lungs are well aerated. Mild emphysematous changes are noted. There is some mild scarring of the right lung base. No lobar consolidation. No pleural effusion or pneumothorax. A few previously visualized sub-5 mm pulmonary nodules are stable, for example a 3 mm left upper lobe pulmonary nodule on image 347/673, series 5). No new suspicious pulmonary nodules visualized. Visualized portions of the upper abdomen demonstrate a 1 cm hypodense focus within the left hepatic lobe which appears stable but is too small to accurately characterize. Moderate diffuse degenerative changes of the spine. Partially visualized surgical changes of the cervical spine. Old healed bilateral posterior rib fractures. CT/CT chest wo IV con IMPRESSION: A few previously visualized sub-5 mm pulmonary nodules are stable. No new suspicious pulmonary nodules visualized. Fleischner guidelines were followed.
== END 2023-01-13 14:04 | disposition home or self-care (01) ==
LOC: HO.CT 14:03
PROVIDERS: PCP Internal Medicine; Visit Provider Internal Medicine Pulmonary Disease
DX: R91.1 Solitary pulmonary nodule (principal)
CPT/HCPCS: 71250

== ENCOUNTER → 2023-01-14 10:40 | Outpatient (BNVA) | payer MEDICARE, MEDICAID, SELFPAY | PROVIDERS: PCP Internal Medicine; Visit Provider Internal Medicine Pulmonary Disease | DX: J44.9 Chronic obstructive pulmonary disease, unspecified (principal); R91.1 Solitary pulmonary nodule; Z79.899 Other long term (current) drug therapy | CPT/HCPCS: 99212 ==

== ENCOUNTER → 2023-02-20 10:34 | Outpatient (BNVA) | payer MEDICARE, SELFPAY | PROVIDERS: PCP Internal Medicine; Visit Provider Urology | DX: C61 Malignant neoplasm of prostate (principal); N40.1 Benign prostatic hyperplasia with lower urinary tract symptoms; N13.8 Other obstructive and reflux uropathy; R97.20 Elevated prostate specific antigen [PSA]; R35.1 Nocturia; F11.20 Opioid dependence, uncomplicated | CPT/HCPCS: 99212 ==

== ENCOUNTER → 2023-03-03 13:18 | Outpatient (BNVA) | payer MEDICARE, SELFPAY | PROVIDERS: PCP Internal Medicine; Visit Provider Surgery | DX: Z12.11 Encounter for screening for malignant neoplasm of colon (principal) | CPT/HCPCS: 99202 ==

== ENCOUNTER → 2023-03-04 14:52 | Outpatient (BNVA) | payer MEDICARE, MEDICAID, SELFPAY | PROVIDERS: PCP Internal Medicine; Visit Provider Urology | DX: C61 Malignant neoplasm of prostate (principal) | CPT/HCPCS: 96402; J9217 ==

== ENCOUNTER 2023-04-11 06:22 | Day surgery (SDC) | payer MEDICARE, SELFPAY ==
--- NOTE | 2023-04-10 09:47 | P.CONAN_ITS ---
Documented by User: Cora Lopez NP 04/10/23 09:48 HPI - Anesthesia Eval Consult details Narrative: 67yo M for Colonoscopy with Possible Polypectomy Chronic opioids Smoker PMF Active Problems Active Problems: All Active Problems (Updated 03/03/23 @ 13:33 by Carlos Chaney MD) Colon cancer screening (Acute) Prostate cancer (Acute) Skin lesion (Acute) Environmental allergies (Acute) Nocturia more than twice per night (Acute) Low libido (Acute) Wheezing (Acute) Pain of left heel (Acute) Elevated PSA (Acute) Pulmonary nodule (Acute) COPD (chronic obstructive pulmonary disease) (Acute) Swelling of right wrist (Acute) Diverticulosis (Acute) Fall (Acute) Fracture of right elbow (Acute) Hospital discharge follow-up (Acute) Right lower lobe pulmonary nodule (Acute) Wrist pain, right (Acute) Encounter for general adult medical examination with abnormal findings (Acute) S/P colonoscopy (Acute) Hemorrhoids (Acute) Diverticulosis large intestine w/o perforation or abscess w/o bleeding (Acute) Hordeolum externum right upper eyelid (Acute) Rib pain on right side (Acute) Heartburn (Acute) Colon cancer screening (Acute) Muscle spasms of neck (Acute) Flank pain (Acute) Cough (Acute) Chest wall pain (Acute) Pain management (Acute) Opioid dependence (Acute) Hypertension, essential (Acute) GERD (gastroesophageal reflux disease) (Acute) Smokers' cough (Acute) Drug induced constipation (Acute) COPD (chronic obstructive pulmonary disease) (Acute) Tobacco abuse (Acute) Asthma (Acute) Failed back syndrome (Acute) Past Medical History Medical History Asthma Colon cancer screening COPD (chronic obstructive pulmonary disease) Drug induced constipation Failed back syndrome GERD (gastroesophageal reflux disease) Heartburn Hypertension, essential Muscle spasms of neck Nocturia Opioid dependence Pain management Smokers' cough Tobacco abuse Family History Family History Father HTN (hypertension) Lung cancer Mother HTN (hypertension) Dementia Breast cancer Maternal Grandmother No problems noted. Maternal Grandfather No problems noted. Paternal Grandfather No problems noted. Paternal Grandmother No problems noted. Brother Throat cancer Lung cancer Brother No problems noted. Daughter No problems noted. Daughter No problems noted. Sister Ovarian cancer Sister No problems noted. Sister No problems noted. Sister No problems noted. Maternal Aunt Breast cancer Surgical History Surgical History History of colonoscopy (04/10/10) History of fusion of cervical spine History of laminectomy History of repair of laceration History of rotator cuff surgery Social History Social History Household Members: Family Housing: House Alcohol intake: current Alcohol intake frequency: a few times a week Patient Tobacco Use Status: Current everyday Tobacco user Tobacco use type: Cigarette Cigarette Packs Per Day: 1 Cigarettes Per Day: 20.0 e-Cigarette/Vaping Use: Never Used Use of substances other than those prescribed or required for medical reasons: No Are you DNR?: No Advance Directives: No Advance Directives Information Provided: Yes Advance Directives on File: No service: No Current occupational status: disabled Cognitive needs: No Hearing needs: No Vision needs: Yes Meds Allergies Allergy/AdvReac Type Severity Reaction Status Date / Time No Known Allergies Allergy Verified 03/12/23 10:57 Exam Exam Date and Time: April 10, 2023 0947 Assessment and Plan Assessment Anesthesia Assessment: Chart Reviewed Documented by User: Vero Carlson MD 04/11/23 07:47 COUNT INCLUDES THE [facility] Past Medical History Medical History Asthma Colon cancer screening COPD (chronic obstructive pulmonary disease) Drug induced constipation Failed back syndrome GERD (gastroesophageal reflux disease) Heartburn Hypertension, essential Muscle spasms of neck Nocturia Opioid dependence Pain management Smokers' cough Tobacco abuse Family History Family History Father HTN (hypertension) Lung cancer Mother HTN (hypertension) Dementia Breast cancer Maternal Grandmother No problems noted. Maternal Grandfather No problems noted. Paternal Grandfather No problems noted. Paternal Grandmother No problems noted. Brother Throat cancer Lung cancer Brother No problems noted. Daughter No problems noted. Daughter No problems noted. Sister Ovarian cancer Sister No problems noted. Sister No problems noted. Sister No problems noted. Maternal Aunt Breast cancer Surgical History Surgical History History of colonoscopy (04/10/10) History of fusion of cervical spine History of laminectomy History of repair of laceration History of rotator cuff surgery History of Problems with Anesthesia: No Social History Social History Household Members: Family Housing: House Alcohol intake: current Alcohol intake frequency: a few times a week Patient Tobacco Use Status: Current everyday Tobacco user Tobacco use type: Cigarette Cigarette Packs Per Day: 1 Cigarettes Per Day: 20.0 e-Cigarette/Vaping Use: Never Used Use of substances other than those prescribed or required for medical reasons: No Are you DNR?: No Advance Directives: No Advance Directives Information Provided: Yes Advance Directives on File: No service: No Current occupational status: disabled Cognitive needs: No Hearing needs: No Vision needs: Yes Meds Allergies Allergy/AdvReac Type Severity Reaction Status Date / Time No Known Allergies Allergy Verified 03/12/23 10:57 Exam Airway Mallampati Class: II TM Dist: >3cm Neck ROM: Limited Loose/Missing/Broken Teeth: No Heart: RRR Lungs: CTA Assessment and Plan Assessment Anesthesia Assessment: Anesthesia Plan Discussed Final Anesthetic Review History of Problems with Anesthesia: No NPO: Yes ASA Class: III Final Preanesthetic Review: Meds/Allgs Chart Reviewed, Consent Obtained/Reviewed and Anes Risks/Benef Reviewed Patient Risk: Intermediate Procedure Risk: Low Anesthetic Plan Anesthetic Plan: MAC: Disposition: Standard PACU
[2023-04-11] VITALS (7 sets, daily range): BP systolic 108–149; BP diastolic 71–81; PULSE 54–64; RESP 16–20; TEMP 36.1–36.3; O2SAT 96–98; BMI 24.2
[2023-04-11] MEDS: Lactated Ringers 1,000 ML 100 ML IVCONT (06:54)
--- NOTE | 2023-04-11 07:23 | MHC.SHP ---
Pre-Procedural Eval Section A Date of Service: 04/11/23 Section B Chief Complaint: Screening Details of Present Illness: Had poor bowel prep on screening colonoscopy in 2020, recommended to repeat, no GI complaints currently Relevant Family History (Specify if Yes): No Relevant Social History: Tobacco Use Present Medications: see Short Stay Collaborative assessment Medical History: Significant History (Smoker, COPD, history of opioid dependence, hypertension, GERD) Allergies: Allergies Allergy/AdvReac Type Severity Reaction Status Date / Time No Known Allergies Allergy Verified 03/12/23 10:57 Review of Systems Sugical H&P ROS: Negative: Constitution, Cardiovascular, Respiratory, Neurological, Psychiatric, Hem-Onc, Allergic/Immunologic, Genitourinary, Musculoskeletal, Integumentary, Endocrine and Eyes/Ears/Nose/Throat and Yes, Specify: Gastrointestinal (Constipation) Exam Surgical H&P Exam: Normal: HEENT, Normal: Heart, Normal: Lungs, Normal: Extremities, Normal: Abdomen, Normal: Skin and Normal: Neurological Plan Diagnosis/Plan: Unchanged I have reviewed the history and physical and performed a pertinent physical examination on my patient. No changes have occurred unless specified. Time Spent With Patient Time: Total time managing care of this patient today ____ minutes.
--- NOTE | 2023-04-11 08:05 | P.OP_ITS ---
Operative Note Operative Note Date of Service: 04/11/23 Narrative: Preop diagnosis: Colon cancer screening Postop diagnosis: 1. difffuse diverticulosis, moderate on the right colon and the left colon 2. Small ulcer with surrounding erythema, at the transverse colon side of the hepatic flexure Procedure: Colonoscopy, with biopsy of small ulcer, with Endomarking of the area Surgeon: Carlos Chaney MD The patient is a 67-year-old male, referred screening colonoscopy. He understood the technique of the planned procedure and was aware of the risks, benefits, and alternatives. The patient was brought to the operating room and placed in left lateral decubitus position under monitored anesthesia care. A surgical time-out was done. A full digital rectal exam was done and this did not reveal any significant anal lesions. The tip of the Olympus colonoscope was gently introduced through the anal orifice advanced with insufflation all the way to the cecum. The cecum was intubated. The cecum was identified by visualization of the ileocecal valve as well as the appendiceal orifice. The cecal mucosa was unremarkable. The scope was gradually withdrawn with careful examination of the entire colonic mucosa being done with scope withdrawal. The patient had adequate bowel prep so it was unlikely that any lesion may have been missed. There was note of diffuse diverticulosis, moderate on the right colon as well as the left colon and sigmoid. At the level of the hepatic flexure towards the transverse colon side was note of so a small ulceration surrounded by erythematous mucosa and mild induration. We biopsied this area with multiple bi frederick of the cold forceps. I also applied tattoo markings on this area using methylene blue. We continued to withdraw the scope The rectum was reached and there were no lesions seen. The anal canal was unremarkable. The scope was then withdrawn completely with desufflation The patient tolerated the procedure well. There were no immediate complications. In view of the skin ulceration, I may repeat the colonoscopy within 1 year depending on the path report as well.
[2023-04-11] MEDS: oxyCODONE HCl Immed Release 5 MG TABLET 10 MG PO (08:20)
== END 2023-04-11 10:00 | disposition home or self-care (01) ==
PROVIDERS: PCP Internal Medicine; Visit Provider Surgery
PROC: 0DBE8ZZ Excision of Large Intestine, Via Natural or Artificial Opening Endoscopic (ICD-10-PCS; CPT 45380; principal; 2023-04-11 07:30)
DX: Z12.11 Encounter for screening for malignant neoplasm of colon (principal); K63.3 Ulcer of intestine; K57.30 Diverticulosis of large intestine without perforation or abscess without bleeding; K52.9 Noninfective gastroenteritis and colitis, unspecified; K21.9 Gastro-esophageal reflux disease without esophagitis; C61 Malignant neoplasm of prostate; I10 Essential (primary) hypertension; J41.0 Simple chronic bronchitis; M62.838 Other muscle spasm; Z79.51 Long term (current) use of inhaled steroids; F11.20 Opioid dependence, uncomplicated; Z79.899 Other long term (current) drug therapy; F17.210 Nicotine dependence, cigarettes, uncomplicated; Z98.1 Arthrodesis status; Z98.890 Other specified postprocedural states
CPT/HCPCS: 45380; 45381; 88305

== ENCOUNTER 2023-05-06 08:55 | Outpatient (REF) | payer MEDICARE, SELFPAY ==
[2023-05-06 11:27] LABS: MANUAL DIFF FLAG NO
[2023-05-06 11:34] LABS: Basophils Absolute Auto 0.1 X10*3/uL (0.0-0.2); Basophils Percent Auto 0.6 % (0-2); Eosinophils Absolute Auto 0.3 X10*3/uL (0.0-0.4); Eosinophils Percent Auto 3.6 % (0-4); Hematocrit 38.6 % (42.0-52.0); Hemoglobin 13.3 g/dl (14.0-18.0); Imm Gran Abs Auto 0.02 X10*3/uL (0.00-0.03); Imm Gran Pct Auto 0.3 % (0.0-0.4); Lymphocytes Absolute Auto 2.5 X10*3/uL (1.2-4.9); Lymphocytes Percent Auto 31.7 % (20-40); Mean Corpuscular HGB Conc 34.5 g/dl (31.0-36.0); Mean Corpuscular Hemoglobin 33.5 pg (27.0-33.0); Mean Corpuscular Volume 97.2 fL (80.0-98.0); Mean Platelet Volume 9.9 fL (9.4-12.4); Monocytes Absolute Auto 0.6 X10*3/uL (0.1-1.2); Monocytes Percent Auto 7.2 % (2-11); Neutrophils Absolute Auto 4.4 x10*3/uL (2.0-8.3); Neutrophils Percent Auto 56.6 % (45-73); Platelet Count 282 X10*3/uL (160-400); Red Blood Count 3.97 X10*6/uL (4.60-5.80); Red Cell Distribution Width 13.3 % (11.0-16.0); White Blood Count 7.8 X10*3/uL (4.8-10.8)
[2023-05-06 11:52] LABS: Amphetamine Screen Urine Not Detected (Not Detect); Barbiturates, Urine Not Detected (Not Detect); Benzodiazepines Screen Urine Not Detected (Not Detect); Cannabinoid Screen Urine Not Detected (Not Detect); Cocaine Screen Urine Not Detected (Not Detect); Fentanyl, urine Not Detected (Not Detect); Opiate Screen Urine POSITIVE (Not Detect); Phencyclidine Screen Urine Not Detected (Not Detect)
[2023-05-06 12:06] LABS: Alanine Aminotransferase 21 U/L (0-40); Albumin Level 4.2 g/dL (3.5-5.0); Alkaline Phosphatase 87 U/L (39-117); Anion Gap 14 (12-20); Aspartate Amino Transferase 28 U/L (5-37); Bilirubin Total 0.6 mg/dL (0.0-1.0); Blood Urea Nitrogen 28 mg/dL (9-16); Calcium 9.8 mg/dL (8.4-10.2); Carbon Dioxide 24 mmol/L (22-29); Chloride 104 mmol/L (96-108); Estimated Glomerular Filt Rate > 60; Glucose Random 108 mg/dL (60-115); Potassium 4.7 mmol/L (3.3-5.1); Sodium 137 mmol/L (135-145); Total Protein 7.2 g/dL (6.5-8.0)
[2023-05-06 12:22] LABS: Prostate Specific Antigen 0.62 ng/mL (<0.05-4.0)
[2023-05-19 09:59] LABS: Codeine, Ur NEGATIVE; Hydrocodone, Ur NEGATIVE
[2023-05-19 10:02] LABS: Hydromorphone, Ur NEGATIVE; Morphine, Ur NEGATIVE; Norhydrocodone, Ur NEGATIVE
== END 2023-05-06 08:56 | disposition home or self-care (01) ==
LOC: HO.HMGCLDS 08:55
PROVIDERS: Urology; PCP Internal Medicine; Visit Provider Internal Medicine
DX: Z12.5 Encounter for screening for malignant neoplasm of prostate (principal); C61 Malignant neoplasm of prostate; F11.20 Opioid dependence, uncomplicated; I10 Essential (primary) hypertension; J44.9 Chronic obstructive pulmonary disease, unspecified; K21.9 Gastro-esophageal reflux disease without esophagitis; M96.1 Postlaminectomy syndrome, not elsewhere classified; R52 Pain, unspecified
CPT/HCPCS: 36415; 80053; 80307; 80364; 80365; 84153; 85025

== ENCOUNTER 2023-05-23 11:26 | Outpatient (AMB) | payer MEDICARE, SELFPAY ==
--- NOTE | 2023-05-23 11:28 | MHC.OFFVIS ---
Intake Intake Visit Reasons: H&P (space oar+gold seed 06/02) Intake Note: Patient is present for Telephone H&P Urology Med: Finasteride, Tamsulosin Antibiotic Allergy:None Blood Thinner: None Allergies No Known Allergies Allergy (Verified 07/30/23 08:07) Medication List - Last Reconciled 05/23/23 by Samy Flower MD albuterol sulfate 90 mcg/actuation (ProAir HFA) 1 inh inhalation QID PRN 30 days amlodipine 10 mg PO DAILY 90 days Anoro Ellipta 62.5-25 mcg/actuation (umeclidinium-vilanterol) 1 inh inhalation DAILY NS cetirizine 10 mg PO DAILY 90 days cyclobenzaprine 5 mg PO BEDTIME PRN 30 days finasteride 5 mg PO DAILY 90 days gabapentin 600 mg PO BEDTIME 30 days ipratropium-albuterol 0.5 mg-3 mg(2.5 mg base)/3 mL 3 mL inhalation Q6-8H PRN 30 days lisinopril 40 mg PO DAILY 90 days montelukast 10 mg PO DAILY 90 days omeprazole 20 mg PO DAILY oxycodone 10 mg PO TID 30 days sucralfate (Carafate) 10 mL PO BID 30 days tamsulosin 0.4 mg PO BEDTIME HPI HPI Comments History of Present Illness Details Daryn is a pleasant male. He is a patient of Dr. Woods. He is seen for the following urologic conditions - elevated PSA - lower urinary tract symptoms Telemedicine Evaluation 15 min Consultation Doximity Sadaf Video attempted Plan for marker seed placement with SpaceOAR Aim for maximum androgen blockade with combination bicalutamide, finasteride, GnRH through radiation. At that point bicalutamide will cease and finasteride will continue through duration of GnRH. Questions answered PSA 05/02 0.6 GnRH 03/04/23 with finasteride Prostate cancer - Grade Group Grade Group 4 Adenocarcinoma of the prostate (T1c N0 M0, Morriston score 3+5, Grade Group 4, PSA at Diagnosis 5.4) - NCCN high risk group Prostate cancer was diagnosed Dr Flower Diagnosis was reached by - for elevated PSA - 5.4 F 11% - 40cc Date: 12/02 12 Core biopsy Positive Biopsies: 4 Negative Biopsies: 8 - (%) Positive: Locations: Left base lateral 3+4 25%, left base medial 3+4 25%, left mid lateral 3+3 5%, left mid medial 3+5 25% TNM Classification of Malignant Tumours (TNM) - T2a Staging Imaging - 12/02 PMSA - metabolically active prostate, question of rib involvement however unlikely - 01/30 prostate MRI - left posterolateral mid, base 1.5 cm PI-RADS 4 with abutment, no clear evidence of extracapsular extension Associated conditions erectile dysfunction Mild Therapeutic plan: Space Oar and marker placement Elevated PSA PSA 05/01 5.9, 10/01 5.4 11% No family history of prostate cancer Did not tolerate finasteride secondary to penile shrinkage Lower urinary tract symptoms Nocturia 2-3 Variable stream Prior medications include tamsulosin, finasteride and terazosin ALEK 1+ prominent medial sulcus Low libido Reports decline in desire Baseline chronic opiate use T 10/01 452 PSA 05/01 5.9, 10/01 5.4 11% PFSH Medical History Colon cancer screening Nocturia Heartburn Muscle spasms of neck Pain management Opioid dependence Hypertension, essential GERD (gastroesophageal reflux disease) Smokers' cough Drug induced constipation COPD (chronic obstructive pulmonary disease) Tobacco abuse Asthma Failed back syndrome Surgical History History of colonoscopy (04/10/10) History of rotator cuff surgery History of repair of laceration History of fusion of cervical spine History of laminectomy Family History Father HTN (hypertension) Lung cancer Mother HTN (hypertension) Dementia Breast cancer Maternal Grandmother No problems noted. Maternal Grandfather No problems noted. Paternal Grandfather No problems noted. Paternal Grandmother No problems noted. Brother Throat cancer Lung cancer Brother No problems noted. Daughter No problems noted. Daughter No problems noted. Sister Ovarian cancer Sister No problems noted. Sister No problems noted. Sister No problems noted. Maternal Aunt Breast cancer Social History Household Members: Family Housing: House Alcohol intake: current Alcohol intake frequency: a few times a week Patient Tobacco Use Status: Current everyday Tobacco user Tobacco use type: Cigarette Cigarette Packs Per Day: 1 Cigarettes Per Day: 20.0 e-Cigarette/Vaping Use: Never Used service: No Current occupational status: disabled Cognitive needs: No Hearing needs: No Vision needs: Yes Review of Systems Const All systems reviewed & are unremarkable except as noted in HPI and below Reports no additional complaints Resp Reports no additional complaints GI Reports no additional complaints Reports as per HPI Musc Reports no additional complaints Physical Exam Telemedicine evaluation Appropriate responses Regular breathing rate and rhythm HEENT Head: Yes normal to inspection Ears: hearing grossly normal bilaterally Eyes General: appearance normal, both eyes and all related structures Neck Neck: Yes normal visual inspection Chest Chest palpation & inspection: normal inspection of the chest Resp Effort & Inspection: normal respiratory effort and able to speak in complete sentences Assessment & Plan Assessment & Plan (1) Prostate cancer: Comment: 12/02 PSA 5.4, high risk Morriston 3 + 5, 4 cores Code(s): C61 - Malignant neoplasm of prostate Plan Risks, benefits and alternatives to therapy were discussed. These include but are not limited to infection, bleeding, damage to local organs and tissues, need for further interventions. Anesthetic risks regarding cardiac arrhythmia, blood clots, and potential mortality were discussed. The patient understands the typical recovery time and the outpatient nature of the procedure. After consideration of these risks the patient gives full informed consent and they wish to move ahead with the procedure. Patient Instructions: Imaging studies, laboratory and physical exam results were discussed and reviewed in detail. No major barriers to patient understanding were identified. An opportunity to ask questions regarding the treatment plan was provided. All questions were answered. The patient expressed understanding and agreement with the above treatment plan. The patient is aware they should contact our office by phone for worsening of their current condition or the appearance of new urologic symptoms. Compliance is encouraged with any medications and followup testing that is ordered. It is a privilege to participate in the urologic care of your patient. If you have any questions or concerns regarding treatment for the above conditions, or other urologic issues, please do not hesitate to contact me. The office telephone contact is [phone]. This note is constructed using voice recognition software. While every effort has been made to ensure accuracy conservation coordinator errors may have been included. Yours sincerely, Dr Samy Flower MD, [facility] - Urology Providers of Expert, Compassionate Care for the Genitourinary System Telehealth Telehealth Location of provider rendering services: practice address Location of patient: address on file Patient Identification confirmed using: Name, : Yes Telehealth method: video Patient verbally consented to treatment: Yes Patient verbally consented to billing insurance company: Yes Patient informed of any privacy concerns related to visit: Yes Coding Level of Care Code Tele Est Pt Level 3 (04090) Diagnoses Prostate cancer C61
== END 2023-05-23 11:58 | disposition home or self-care (01) ==
LOC: HO.HUSH 11:26
PROVIDERS: PCP Internal Medicine; Visit Provider Urology
DX: C61 Malignant neoplasm of prostate (principal)
CPT/HCPCS: 99213

== ENCOUNTER → 2023-05-23 11:26 | Outpatient (BNVA) | payer MEDICARE, SELFPAY | PROVIDERS: PCP Internal Medicine; Visit Provider Urology ==

== ENCOUNTER 2023-06-02 06:40 | Day surgery (SDC) | payer MEDICARE, SELFPAY ==
[2023-05-28 14:50] VITALS: BMI 24.1
--- NOTE | 2023-05-30 10:15 | HO.ANESPROP2 ---
Documented by User: Cora Lopez NP 05/30/23 10:20 HPI - Anesthesia Eval Consult details Narrative: 67yo M for Visicoil Insertion, Space OAR Medically optimized Chronic opioids PMFSH Active Problems Active Problems: All Active Problems (Updated 05/06/23 @ 08:38 by Lloyd Woods MD) Pre-op evaluation (Acute) Colon cancer screening (Acute) Prostate cancer (Acute) Skin lesion (Acute) Environmental allergies (Acute) Nocturia more than twice per night (Acute) Low libido (Acute) Wheezing (Acute) Pain of left heel (Acute) Elevated PSA (Acute) Pulmonary nodule (Acute) COPD (chronic obstructive pulmonary disease) (Acute) Swelling of right wrist (Acute) Diverticulosis (Acute) Fall (Acute) Fracture of right elbow (Acute) Hospital discharge follow-up (Acute) Right lower lobe pulmonary nodule (Acute) Wrist pain, right (Acute) Encounter for general adult medical examination with abnormal findings (Acute) S/P colonoscopy (Acute) Hemorrhoids (Acute) Diverticulosis large intestine w/o perforation or abscess w/o bleeding (Acute) Hordeolum externum right upper eyelid (Acute) Rib pain on right side (Acute) Heartburn (Acute) Colon cancer screening (Acute) Muscle spasms of neck (Acute) Flank pain (Acute) Cough (Acute) Chest wall pain (Acute) Pain management (Acute) Opioid dependence (Acute) Hypertension, essential (Acute) GERD (gastroesophageal reflux disease) (Acute) Smokers' cough (Acute) Drug induced constipation (Acute) COPD (chronic obstructive pulmonary disease) (Acute) Tobacco abuse (Acute) Asthma (Acute) Failed back syndrome (Acute) Past Medical History Medical History Asthma Colon cancer screening COPD (chronic obstructive pulmonary disease) Drug induced constipation Failed back syndrome GERD (gastroesophageal reflux disease) Heartburn Hypertension, essential Muscle spasms of neck Nocturia Opioid dependence Pain management Smokers' cough Tobacco abuse Family History Family History Father HTN (hypertension) Lung cancer Mother HTN (hypertension) Dementia Breast cancer Maternal Grandmother No problems noted. Maternal Grandfather No problems noted. Paternal Grandfather No problems noted. Paternal Grandmother No problems noted. Brother Throat cancer Lung cancer Brother No problems noted. Daughter No problems noted. Daughter No problems noted. Sister Ovarian cancer Sister No problems noted. Sister No problems noted. Sister No problems noted. Maternal Aunt Breast cancer Surgical History Surgical History History of colonoscopy (04/10/10) History of fusion of cervical spine History of laminectomy History of repair of laceration History of rotator cuff surgery History of Problems with Anesthesia: No Social History Social History Household Members: Family Housing: House Alcohol intake: current Alcohol intake frequency: a few times a week Patient Tobacco Use Status: Current everyday Tobacco user Tobacco use type: Cigarette Cigarette Packs Per Day: 1 Cigarettes Per Day: 20.0 Smoked in Last 30 Days: Yes e-Cigarette/Vaping Use: Never Used Date Education Initiated: 06/02/23 Use of substances other than those prescribed or required for medical reasons: No Have you been hit, kicked, punched, or otherwise hurt by someone within the past year? If so, by whom?: No Are you DNR?: No Advance Directives: No Advance Directives Information Provided: Yes Recently lost weight without trying: No service: No Current occupational status: disabled Cognitive needs: No Hearing needs: No Vision needs: Yes Meds Allergies Allergy/AdvReac Type Severity Reaction Status Date / Time No Known Allergies Allergy Verified 05/09/23 10:07 Exam Exam Date and Time: May 30, 2023 1015 Height,Weight and Vital Signs: Height 5 ft 11 in Weight 78.471 kg Pertinent Lab Results Pertinent Lab Results: Laboratory Tests 05/06/23 05/06/23 09:04 09:04 WBC 7.8 Hgb 13.3 L Hct 38.6 L Plt Count 282 Sodium 137 Potassium 4.7 Chloride 104 Carbon Dioxide 24 BUN 28 H Creatinine 0.84 Narrative Narrative: EKG 04/2023 NSR @ 67 ?LAE Assessment and Plan Assessment Anesthesia Assessment: Chart Reviewed Final Anesthetic Review History of Problems with Anesthesia: No Documented by User: Cierra Chavez MD 06/02/23 08:49 PMFSH Past Medical History Medical History Asthma Colon cancer screening COPD (chronic obstructive pulmonary disease) Drug induced constipation Failed back syndrome GERD (gastroesophageal reflux disease) Heartburn Hypertension, essential Muscle spasms of neck Nocturia Opioid dependence Pain management Smokers' cough Tobacco abuse Family History Family History Father HTN (hypertension) Lung cancer Mother HTN (hypertension) Dementia Breast cancer Maternal Grandmother No problems noted. Maternal Grandfather No problems noted. Paternal Grandfather No problems noted. Paternal Grandmother No problems noted. Brother Throat cancer Lung cancer Brother No problems noted. Daughter No problems noted. Daughter No problems noted. Sister Ovarian cancer Sister No problems noted. Sister No problems noted. Sister No problems noted. Maternal Aunt Breast cancer Family history of problems with anesthesia: No Surgical History Surgical History History of colonoscopy (04/10/10) History of fusion of cervical spine History of laminectomy History of repair of laceration History of rotator cuff surgery Social History Social History Household Members: Family Housing: House Alcohol intake: current Alcohol intake frequency: a few times a week Patient Tobacco Use Status: Current everyday Tobacco user Tobacco use type: Cigarette Cigarette Packs Per Day: 1 Cigarettes Per Day: 20.0 Smoked in Last 30 Days: Yes e-Cigarette/Vaping Use: Never Used Date Education Initiated: 06/02/23 Use of substances other than those prescribed or required for medical reasons: No Have you been hit, kicked, punched, or otherwise hurt by someone within the past year? If so, by whom?: No Are you DNR?: No Advance Directives: No Advance Directives Information Provided: Yes Recently lost weight without trying: No service: No Current occupational status: disabled Cognitive needs: No Hearing needs: No Vision needs: Yes Meds Allergies Allergy/AdvReac Type Severity Reaction Status Date / Time No Known Allergies Allergy Verified 05/09/23 10:07 Exam Airway Mallampati Class: II TM Dist: >3cm Neck ROM: Full Heart: rrr Lungs: cta Assessment and Plan Assessment Anesthesia Assessment: Anesthesia Plan Discussed and Smoking Cess. Discussed Final Anesthetic Review Family History of Problems with Anesthesia: No NPO: Yes ASA Class: III Final Preanesthetic Review: No Changes in Pt Med Stat, Meds/Allgs Chart Reviewed, Consent Obtained/Reviewed and Anes Risks/Benef Reviewed Patient Risk: Intermediate Procedure Risk: Low Anesthetic Plan Anesthetic Plan: GA Disposition: Standard PACU
[2023-06-02 07:17] VITALS: BMI 23.7
[2023-06-02 07:22] VITALS: BP 153/80; PULSE 67; RESP 18; TEMP 36.6; O2SAT 97
[2023-06-02 07:23] VITALS: BMI 23.7
[2023-06-02] MEDS: Lactated Ringers 1,000 ML 100 ML IVCONT (08:07)
--- NOTE | 2023-06-02 08:47 | MHC.SHP ---
Pre-Procedural Eval Section A Date of Service: 06/02/23 The patient is an INPATIENT: No Changes since office visit: No Cold of Flu in the past 2 weeks, No New Medical Problems, No Changes in Medication and No Patient answered all questions The History & Physical has been completed within 30 days and I have reviewed it.: Yes Section B Chief Complaint: Malignant neoplasm of prostate Allergies: Allergies Allergy/AdvReac Type Severity Reaction Status Date / Time No Known Allergies Allergy Verified 05/09/23 10:07 Plan Diagnosis/Plan: Unchanged (space oar and visicoil placement) I have reviewed the history and physical and performed a pertinent physical examination on my patient. No changes have occurred unless specified. Time Spent With Patient Time: Total time managing care of this patient today ____ minutes.
--- NOTE | 2023-06-02 09:19 | P.OP_ITS ---
Operative Note Operative Note Date of Service: 06/02/23 Narrative: Preoperative diagnosis: Prostate cancer Postoperative diagnosis: Prostate cancer Procedure: 1. Transrectal ultrasound-guided perineal visicoil marker seed placement 2. Transrectal ultrasound-guided perineal SpaceOAR gel placement Surgeon: Dr. Samy Flower Anesthetic: Sedation Indications for procedure: Prostate Cancer Procedure: After informed consent was verified, the patient was brought into the operating room and anesthesia was performed per protocol. The patient was placed in a modified dorsal lithotomy position. Gel was placed per rectum Ultrasound probe was placed per rectum. The prostate was visualized in sagittal and transverse dimensions. Local anesthetic was infiltrated in the perineal area using 10 cc of lidocaine Visicoil seed markers were placed in a transperineal fashion using ultrasound guidance 1 on the right - 1 toward mid gland. 1 on the left at mid gland. The purpose is for target triangulation. The 2nd part of the procedure was placement of SpaceOAR gel to allow consolidation for radiation delivery. The kit was prepared on the back table with assembly of the 2 part solution and syringe delivery system. The delivery needle was advanced bevel down in the midline under ultrasound guidance to the apex of the prostate. It was advanced in the plane the prostate from the rectum to the midpoint of the prostate. Location was determined using sagittal and transverse imaging. At the midpoint of the prostate 1 cc of saline was placed to confirm needle position. Further injection saline was placed to confirm spread toward the base of the prostate. Position was confirmed and needle confirmed to be free from tenting of the rectum. With the needle in the confirmed position 10 cc of gel mixture was injected. This was perfformed over a target time of 15-20 seconds to allow for adequate s pread.. Good separation was seen of the rectum from the prostate space running in the midline from the base toward the apex of the prostate. Following completion of the procedure the probe was removed from the rectum. He tolerated the procedure well. He was extubated in the operating room and transferred in stable condition to the recovery area. Pathology: none Drains: none
[2023-06-02 09:25] VITALS: BP 125/71; PULSE 66; RESP 16; TEMP 36.4; O2SAT 100
[2023-06-02 09:30] VITALS: BP 112/73; PULSE 70; RESP 16; O2SAT 96
[2023-06-02 09:35] VITALS: BP 114/74; PULSE 76; RESP 16; O2SAT 97
[2023-06-02] MEDS: oxyCODONE HCl Immed Release 5 MG TABLET PO (09:39)
[2023-06-02 09:40] VITALS: BP 118/69; PULSE 66; RESP 16; O2SAT 97
[2023-06-02] MEDS: Acetaminophen 325 MG TABLET 975 MG PO (09:40)
[2023-06-02 09:55] VITALS: BP 131/78; PULSE 72; RESP 18; TEMP 36.5; O2SAT 98
== END 2023-06-02 10:06 | disposition home or self-care (01) ==
PROVIDERS: PCP Internal Medicine; Visit Provider Urology
PROC: (CPT 55876; principal; 2023-06-02 08:40)
PROC: (CPT 55876; 2023-06-02 08:40)
DX: C61 Malignant neoplasm of prostate (principal); I10 Essential (primary) hypertension; J44.9 Chronic obstructive pulmonary disease, unspecified
CPT/HCPCS: 55876; 55874; A4648; C1889; J1100; J1956; J2250; J2405; J3010

== ENCOUNTER → 2023-06-02 06:40 | Outpatient (BNV) | payer MEDICARE, SELFPAY | PROVIDERS: PCP Internal Medicine; Visit Provider Urology | DX: C61 Malignant neoplasm of prostate (principal) | CPT/HCPCS: 55874; 55876; 76942 ==

== ENCOUNTER 2023-07-02 13:28 | Outpatient (AMB) | payer MEDICARE, MEDICAID, SELFPAY ==
--- NOTE | 2023-07-02 13:29 | MHC.PC.OV ---
Vital Signs 07/02/23 13:31 Height 5 ft 11 in Weight 163 lb BMI 22.7 BP 122/70 Blood Pressure Location Rt brachial Position Sitting Pulse 76 Pulse Source Pulse Oximeter Pulse Oximetry (%) 96 Oxygen Delivery Method Room Air Intake Visit Reasons: Reschedule from 07/08/23 ~ Allergies No Known Allergies Allergy (Verified 07/02/23 13:33) Medication List - Last Reconciled 07/02/23 by Lloyd Woods MD albuterol sulfate 90 mcg/actuation (ProAir HFA) 1 inh inhalation QID PRN 30 days amlodipine 10 mg PO DAILY 90 days Anoro Ellipta 62.5-25 mcg/actuation (umeclidinium-vilanterol) 1 inh inhalation DAILY NS cetirizine 10 mg PO DAILY 90 days cyclobenzaprine 5 mg PO BEDTIME PRN 30 days finasteride 5 mg PO DAILY 90 days gabapentin 600 mg PO BEDTIME 30 days ipratropium-albuterol 0.5 mg-3 mg(2.5 mg base)/3 mL 3 mL inhalation Q6-8H PRN 30 days lisinopril 40 mg PO DAILY 90 days montelukast 10 mg PO DAILY 90 days omeprazole 20 mg PO DAILY oxycodone 10 mg PO TID 30 days sucralfate (Carafate) 10 mL PO BID 30 days Tobacco use date assessed: 07/02/23 Fall risk assessment: No Falls in past year Last assessed Fall Risk: 07/02/23 Dental Screening Dental Screen Date: 07/02/23 Did you have a dental visit in the last 12 months?: Yes Did you have a dental problem in the last 6 months where you did not have access to dental care?: No Was dental information given to patient?: No HPI Reschedule from 07/08/23 ~ HPI Details Patient is a 67-year-old gentleman came in today for his regular follow-up appointment and medication refill Prostate cancer : Patient is currently going through radiation Blood pressure is stable patient is on amlodipine 10 mg daily and lisinopril 40 mg.? Tolerating medication.? Asthma/allergies stable with montelukast 10 mg and ProAir as needed.? Patient continued to smoke as well.? Once instructed patient to stop smoking and if he needs any help he should let me know COPD management through respiratory specialist.? Patient have a chronic back and neck pain he is on oxycodone 10 mg t.i.d. along with muscle relaxer and gabapentin 600 mg.? Medications sent for another month.? Patient is complying with the treatment plan no signs of abuse patient is aware of side effects.? GERD is stable with omeprazole 20 mg and diet-controlled. [facility] Medical History Asthma Colon cancer screening COPD (chronic obstructive pulmonary disease) Drug induced constipation Failed back syndrome GERD (gastroesophageal reflux disease) Heartburn Hypertension, essential Muscle spasms of neck Nocturia Opioid dependence Pain management Smokers' cough Tobacco abuse Surgical History History of colonoscopy (04/10/10) History of fusion of cervical spine History of laminectomy History of repair of laceration History of rotator cuff surgery Family History Father HTN (hypertension) Lung cancer Mother HTN (hypertension) Dementia Breast cancer Maternal Grandmother No problems noted. Maternal Grandfather No problems noted. Paternal Grandfather No problems noted. Paternal Grandmother No problems noted. Brother Throat cancer Lung cancer Brother No problems noted. Daughter No problems noted. Daughter No problems noted. Sister Ovarian cancer Sister No problems noted. Sister No problems noted. Sister No problems noted. Maternal Aunt Breast cancer Social History Household Members: Family Housing: House Alcohol intake: current Alcohol intake frequency: a few times a week Patient Tobacco Use Status: Current everyday Tobacco user Tobacco use type: Cigarette Cigarette Packs Per Day: 1 Cigarettes Per Day: 20.0 e-Cigarette/Vaping Use: Never Used service: No Current occupational status: disabled Cognitive needs: No Hearing needs: No Vision needs: Yes Questionnaire PHQ-9 Over the last 2 weeks, how often have you been bothered by any of the following problems? 1. Little interest or pleasure in doing things: several days 2. Feeling down, depressed, or hopeless: several days 3. Trouble falling or staying asleep, or sleeping too much: several days 4. Feeling tired or having little energy: several days 5. Poor appetite or overeating: several days 6. Feeling bad about yourself - or that you are a failure or have let yourself or your family down: several days 7. Trouble concentrating on things, such as reading the newspaper or watching television: several days 8. Moving or speaking so slowly that other people could have noticed. Or the opposite - being so fidgety or restless that you have been moving around a lot more than usual: not at all 9. Thoughts that you would be better off or of hurting yourself in some way: not at all Total score: 7 Depression Screening Interpretation: Positive 54597 - PHQ-9 Billing: Yes Source: Developed by Drs. Juan Motley, Blanca Manzo, Kelton Mooney and colleagues, with an educational homa from [employer]. Thrive Questionnaire Date Thrive assessed: 05/02/21 AUDIT C Alcohol Use Questionnaire (AUDIT-C) 1. How often do you have a drink containing alcohol?: Monthly or less 2. How many drinks containing alcohol do you have on a typical day when you are drinking?: 1 or 2 3. How often do you have six or more drinks on one occasion?: Never Total Score: 1 Score Reviewed/Action Taken: Yes Review of Systems Const Denies chills and Denies fever(s) ENT Denies epistaxis and Denies nasal discharge Card Denies chest pain Resp Denies chest congestion, Denies cough and Denies hemoptysis GI Denies diarrhea and Denies nausea Skin/Breast Denies rash Neuro Reports no additional complaints Psych Reports no additional complaints Endo Reports no additional complaints Physical exam (Primary Care) Vital Signs: Last Vital Signs Pulse 76 07/02/23 13:31 BP 122/70 07/02/23 13:31 Pulse Ox 96 07/02/23 13:31 Oxygen Delivery Method Room Air 07/02/23 13:31 BMI result Body Mass Index 22.7 Tobacco/Smoking Status: Tobacco use Status Tobacco use date assessed 07/02/23 07/02/23 13:35 Patient Tobacco Use Status Current everyday Tobacco 07/02/23 13:31 Tobacco use type Cigarette 07/02/23 13:31 e-Cigarette/Vaping Use Never Used 07/02/23 13:31 Are you ready to quit: Yes Tobacco cessation counseling provided: Yes Relapse Prevention: discussed the importance of a supportive environment Number of minutes spent counselin CPT code: 49724 - 4-10 Minutes Depression Screening Interpretation: Positive Thrive Assessment: Date of Thrive Assessment Date Thrive assessed 05/02/21 07/02/23 13:31 Const General: cooperative, comfortable and no acute distress Orientation/consciousness: patient oriented x3 HENMT Head: Yes normocephalic Eyes General: appearance normal, both eyes and all related structures Neck Neck: Yes supple Resp Effort & Inspection: normal respiratory effort, no cough and no stridor Cardio Rhythm: regular rhythm Heart sounds: S1 normal heart sound present and S2 normal heart sound present Skin General skin exam: turgor normal Neuro General: patient oriented x3, tone normal and moves all extremities Extrem Right lower extremity: no edema Left lower extremity: no edema Assessment and Plan Assessment & Plan (1) Failed back syndrome: Code(s): M96.1 - Postlaminectomy syndrome, not elsewhere classified (2) COPD (chronic obstructive pulmonary disease): Code(s): J44.9 - Chronic obstructive pulmonary disease, unspecified Qualifiers: COPD type: chronic bronchitis Chronic bronchitis type: mixed simple and mucopurulent Qualified Code(s): J41.8 - Mixed simple and mucopurulent chronic bronchitis (3) GERD (gastroesophageal reflux disease): Code(s): K21.9 - Gastro-esophageal reflux disease without esophagitis Qualifiers: Esophagitis presence: without esophagitis Qualified Code(s): K21.9 - Gastro-esophageal reflux disease without esophagitis (4) Hypertension, essential: Code(s): I10 - Essential (primary) hypertension (5) Pain management: Code(s): R52 - Pain, unspecified (6) Opioid dependence: Comment: CONTROLLED NATURE OF MEDICATION WAS DISCUSSED, IT IS IMPORTANT TO NOTIFY ME OF CHANGE OF PHARMACY, OR IF TRAVELING. DO NOT SHARE THE MEDICATION WITH ANYBODY, KEEP IT SAFE AWAY FROM THE HANDS OF SMALL CHILDREN, AND ONLY TAKE IT PRESCRIBED. THIS MEDICATION HAVE A TENDENCY TO BE ABUSED, HABIT-FORMING, AND IT CAN CAUSE SEVERE CONSTIPATION ALONG WITH OTHER ALLERGIC REACTIONS. LONG-TERM USE OF NARCOTIC MEDICATIONS HAVE SHOWN TO INCREASE SENSITIVITY TO PAIN. Code(s): F11.20 - Opioid dependence, uncomplicated Qualifiers: Substance use status: uncomplicated Qualified Code(s): F11.20 - Opioid dependence, uncomplicated (7) Prostate cancer: Comment: 12/02 PSA 5.4, high risk Nelli 3 + 5, 4 cores Code(s): C61 - Malignant neoplasm of prostate (8) Nicotine dependence: Code(s): F17.200 - Nicotine dependence, unspecified, uncomplicated Plan Patient is a 67-year-old gentleman came in today for his regular follow-up appointment and medication refill Prostate cancer : Patient is currently going through radiation Blood pressure is stable patient is on amlodipine 10 mg daily and lisinopril 40 mg.? Tolerating medication.? Asthma/allergies stable with montelukast 10 mg and ProAir as needed.? Patient continued to smoke as well.? Once instructed patient to stop smoking and if he needs any help he should let me know COPD management through respiratory specialist.? Patient have a chronic back and neck pain he is on oxycodone 10 mg t.i.d. along with muscle relaxer and gabapentin 600 mg.? Medications sent for another month.? Patient is complying with the treatment plan no signs of abuse patient is aware of side effects.? GERD is stable with omeprazole 20 mg and diet-controlled. Medications: Refilled oxycodone partial refill allowed 10 mg PO TID 30 days 90 tabs 0RF pain F11.20 - Opioid dependence, uncomplicated, M96.1 - Postlaminectomy syndrome, not elsewhere classified, R52 - Pain, unspecified gabapentin 600 mg PO BEDTIME 30 days 30 tabs 0RF M96.1 - Postlaminectomy syndrome, not elsewhere classified, R52 - Pain, unspecified cyclobenzaprine 5 mg PO BEDTIME 30 days PRN 30 tabs 0RF muscle spasm M62.838 - Other muscle spasm, R52 - Pain, unspecified Coding Level of Care Code Est Pt Level 4 (87174) Diagnoses Failed back syndrome M96.1 COPD (chronic obstructive pulmonary disease) J41.8 COPD type: chronic bronchitis Chronic bronchitis type: mixed simple and mucopurulent GERD (gastroesophageal reflux disease) K21.9 Esophagitis presence: without esophagitis Hypertension, essential I10 Pain management R52 Opioid dependence F11.20 Substance use status: uncomplicated Prostate cancer C61 Nicotine dependence F17.200 Additional Codes Vital Signs *Quality* - CPT code: 62293 - 4-10 Minutes ([id number])
[2023-07-02 13:31] VITALS: BP 122/70; PULSE 76; O2SAT 96; BMI 22.7
== END 2023-07-02 17:11 | disposition home or self-care (01) ==
PROVIDERS: PCP Internal Medicine; Visit Provider Internal Medicine
DX: K21.9 Gastro-esophageal reflux disease without esophagitis (principal); I10 Essential (primary) hypertension; F11.20 Opioid dependence, uncomplicated; F17.210 Nicotine dependence, cigarettes, uncomplicated; J41.8 Mixed simple and mucopurulent chronic bronchitis; C61 Malignant neoplasm of prostate; M96.1 Postlaminectomy syndrome, not elsewhere classified; R52 Pain, unspecified
CPT/HCPCS: 99214; 99406

== ENCOUNTER 2023-07-30 07:51 | Outpatient (AMB) | payer MEDICARE, SELFPAY ==
--- NOTE | 2023-07-30 08:06 | A.OFFPC_ITS ---
Vital Signs 07/30/23 08:07 Height 5 ft 11 in Weight 163 lb 8 oz BMI 22.8 BP 128/70 Blood Pressure Location Rt brachial Position Sitting Pulse 75 Pulse Source Pulse Oximeter Pulse Oximetry (%) 96 Oxygen Delivery Method Room Air Intake Visit Reasons: Follow up ~ Allergies No Known Allergies Allergy (Verified 07/30/23 08:07) Medication List - Last Reconciled 07/30/23 by Lloyd Woods MD albuterol sulfate 90 mcg/actuation (ProAir HFA) 1 inh inhalation QID PRN 30 days amlodipine 10 mg PO DAILY 90 days Anoro Ellipta 62.5-25 mcg/actuation (umeclidinium-vilanterol) 1 inh inhalation DAILY NS cetirizine 10 mg PO DAILY 90 days cyclobenzaprine 5 mg PO BEDTIME PRN 30 days finasteride 5 mg PO DAILY 90 days gabapentin 600 mg PO BEDTIME 30 days ipratropium-albuterol 0.5 mg-3 mg(2.5 mg base)/3 mL 3 mL inhalation Q6-8H PRN 30 days lisinopril 40 mg PO DAILY 90 days montelukast 10 mg PO DAILY 90 days omeprazole 20 mg PO DAILY oxycodone 10 mg PO TID 30 days sucralfate (Carafate) 10 mL PO BID 30 days Tobacco use date assessed: 07/30/23 Fall risk assessment: No Falls in past year Last assessed Fall Risk: 07/30/23 Dental Screening Dental Screen Date: 07/30/23 Did you have a dental visit in the last 12 months?: Yes Did you have a dental problem in the last 6 months where you did not have access to dental care?: No Was dental information given to patient?: Patient has dentist HPI Follow up ~ HPI Details Patient is a 68-year-old gentleman came in today for his pain medication refill Patient have a failed back syndrome and is currently taking oxycodone 10 mg 3 times a day Patient is aware of side effects and is complying with the treatment plan Recently he has been diagnosed with prostate cancer , and is going through radiation therapy currently Continue to smoke, once again patient was advised to stop as soon as possible and if he needs any assistance he is to let me know. Follow-up 4 weeks [facility] Medical History Colon cancer screening Nocturia Heartburn Muscle spasms of neck Pain management Opioid dependence Hypertension, essential GERD (gastroesophageal reflux disease) Smokers' cough Drug induced constipation COPD (chronic obstructive pulmonary disease) Tobacco abuse Asthma Failed back syndrome Surgical History History of colonoscopy (04/10/10) History of rotator cuff surgery History of repair of laceration History of fusion of cervical spine History of laminectomy Family History Father HTN (hypertension) Lung cancer Mother HTN (hypertension) Dementia Breast cancer Maternal Grandmother No problems noted. Maternal Grandfather No problems noted. Paternal Grandfather No problems noted. Paternal Grandmother No problems noted. Brother Throat cancer Lung cancer Brother No problems noted. Daughter No problems noted. Daughter No problems noted. Sister Ovarian cancer Sister No problems noted. Sister No problems noted. Sister No problems noted. Maternal Aunt Breast cancer Social History Household Members: Family Housing: House Alcohol intake: current Alcohol intake frequency: a few times a week Patient Tobacco Use Status: Current everyday Tobacco user Tobacco use type: Cigarette Cigarette Packs Per Day: 1 Cigarettes Per Day: 20.0 e-Cigarette/Vaping Use: Never Used service: No Current occupational status: disabled Cognitive needs: No Hearing needs: No Vision needs: Yes Questionnaire Thrive Questionnaire Date Thrive assessed: 05/02/21 AUDIT C Alcohol Use Questionnaire (AUDIT-C) 1. How often do you have a drink containing alcohol?: Monthly or less 2. How many drinks containing alcohol do you have on a typical day when you are drinking?: 1 or 2 3. How often do you have six or more drinks on one occasion?: Never Total Score: 1 Score Reviewed/Action Taken: Yes Review of Systems Const Denies chills and Denies fever(s) ENT Denies epistaxis and Denies nasal discharge Card Denies chest pain Resp Denies chest congestion, Denies cough and Denies hemoptysis GI Denies diarrhea and Denies nausea Skin/Breast Denies rash Neuro Reports no additional complaints Psych Reports no additional complaints Endo Reports no additional complaints Physical exam (Primary Care) Vital Signs: Last Vital Signs Pulse 75 07/30/23 08:07 BP 128/70 07/30/23 08:07 Pulse Ox 96 07/30/23 08:07 Oxygen Delivery Method Room Air 07/30/23 08:07 BMI result Body Mass Index 22.8 Tobacco/Smoking Status: Tobacco use Status Tobacco use date assessed 07/30/23 07/30/23 08:08 Patient Tobacco Use Status Current everyday Tobacco 07/30/23 08:08 Tobacco use type Cigarette 07/30/23 08:08 e-Cigarette/Vaping Use Never Used 07/30/23 08:08 Are you ready to quit: No Tobacco cessation counseling provided: Yes CPT code: 96696 - 4-10 Minutes Thrive Assessment: Date of Thrive Assessment Date Thrive assessed 05/02/21 07/30/23 08:08 Const General: cooperative, comfortable and no acute distress Orientation/consciousness: patient oriented x3 HENMT Head: Yes normocephalic Eyes General: appearance normal, both eyes and all related structures Neck Neck: Yes supple Resp Effort & Inspection: normal respiratory effort, no cough and no stridor Cardio Rhythm: regular rhythm Heart sounds: S1 normal heart sound present and S2 normal heart sound present Skin General skin exam: turgor normal Neuro General: patient oriented x3, tone normal and moves all extremities Extrem Right lower extremity: no edema Left lower extremity: no edema Assessment and Plan Assessment & Plan (1) Failed back syndrome: Code(s): M96.1 - Postlaminectomy syndrome, not elsewhere classified (2) Opioid dependence: Comment: CONTROLLED NATURE OF MEDICATION WAS DISCUSSED, IT IS IMPORTANT TO NOTIFY ME OF CHANGE OF PHARMACY, OR IF TRAVELING. DO NOT SHARE THE MEDICATION WITH ANYBODY, KEEP IT SAFE AWAY FROM THE HANDS OF SMALL CHILDREN, AND ONLY TAKE IT PRESCRIBED. THIS MEDICATION HAVE A TENDENCY TO BE ABUSED, HABIT-FORMING, AND IT CAN CAUSE SEVERE CONSTIPATION ALONG WITH OTHER ALLERGIC REACTIONS. LONG-TERM USE OF NARCOTIC MEDICATIONS HAVE SHOWN TO INCREASE SENSITIVITY TO PAIN. Code(s): F11.20 - Opioid dependence, uncomplicated Qualifiers: Substance use status: uncomplicated Qualified Code(s): F11.20 - Opioid dependence, uncomplicated (3) Pain management: Code(s): R52 - Pain, unspecified Plan Patient is a 68-year-old gentleman came in today for his pain medication refill Patient have a failed back syndrome and is currently taking oxycodone 10 mg 3 times a day Patient is aware of side effects and is complying with the treatment plan Recently he has been diagnosed with prostate cancer , and is going through radiation therapy currently Follow-up 4 weeks Medications: Refilled oxycodone partial refill allowed 10 mg PO TID 90 tabs 0RF pain 30 days F11.20 - Opioid dependence, uncomplicated, M96.1 - Postlaminectomy syndrome, not elsewhere classified, R52 - Pain, unspecified gabapentin 600 mg PO BEDTIME 30 tabs 0RF 30 days M96.1 - Postlaminectomy syndrome, not elsewhere classified, R52 - Pain, unspecified Coding Level of Care Code Est Pt Level 3 (48669) Diagnoses Failed back syndrome M96.1 Uncomplicated opioid dependence F11.20 Substance use status: uncomplicated Pain management R52 Additional Codes Vital Signs *Quality* - CPT code: 67960 - 4-10 Minutes ([id number])
[2023-07-30 08:07] VITALS: BP 128/70; PULSE 75; O2SAT 96; BMI 22.8
== END 2023-07-30 12:33 | disposition home or self-care (01) ==
PROVIDERS: PCP Internal Medicine; Visit Provider Internal Medicine
DX: M96.1 Postlaminectomy syndrome, not elsewhere classified (principal); F11.20 Opioid dependence, uncomplicated; R52 Pain, unspecified
CPT/HCPCS: 99213

== ENCOUNTER 2023-09-05 12:37 | Outpatient (AMB) | payer MEDICARE, MEDICAID, SELFPAY ==
[2023-09-05 12:43] VITALS: BP 126/80; PULSE 65; O2SAT 95; BMI 23.1
--- NOTE | 2023-09-05 12:43 | MHC.PC.OV ---
Vital Signs 09/05/23 12:43 Height 5 ft 11 in Weight 166 lb BMI 23.1 BP 126/80 Blood Pressure Location Lt brachial Position Sitting Pulse 65 Pulse Source Pulse Oximeter Pulse Oximetry (%) 95 Oxygen Delivery Method Room Air Intake Visit Reasons: 1 month follow up Intake Note: Pt is here today for 1 months follow up visit. Allergies No Known Allergies Allergy (Verified 09/05/23 12:45) Medication List - Last Reconciled 09/05/23 by Lloyd Woods MD albuterol sulfate 90 mcg/actuation (ProAir HFA) 1 inh inhalation QID PRN 30 days amlodipine 10 mg PO DAILY 90 days Anoro Ellipta 62.5-25 mcg/actuation (umeclidinium-vilanterol) 1 inh inhalation DAILY NS cetirizine 10 mg PO DAILY 90 days cyclobenzaprine 5 mg PO BEDTIME PRN 30 days finasteride 5 mg PO DAILY 90 days gabapentin 600 mg PO BEDTIME 30 days ipratropium-albuterol 0.5 mg-3 mg(2.5 mg base)/3 mL 3 mL inhalation Q6-8H PRN 30 days lisinopril 40 mg PO DAILY 90 days montelukast 10 mg PO DAILY 90 days omeprazole 20 mg PO DAILY oxycodone 10 mg PO TID 30 days sucralfate (Carafate) 10 mL PO BID 30 days Tobacco use date assessed: 09/05/23 HPI 1 month follow up HPI Details Patient is a 68-year-old gentleman came in today for his pain medication refill Is complaining of sore and burning throat off and on Patient have a GERD and continue to drink beer We discussed the diet controlled and management of GERD today I am adding famotidine as well But most importantly patient needs to avoid the aggravating factors. He is also requesting a letter to use a special hunting device due to his shoulder surgery he is not able to use the regular bow Letter provided Patient have a failed back syndrome and is currently taking oxycodone 10 mg 3 times a day Patient is aware of side effects and is complying with the treatment plan Prostate cancer management through urology [facility] Medical History Colon cancer screening Nocturia Heartburn Muscle spasms of neck Pain management Opioid dependence Hypertension, essential GERD (gastroesophageal reflux disease) Smokers' cough Drug induced constipation COPD (chronic obstructive pulmonary disease) Tobacco abuse Asthma Failed back syndrome Surgical History History of colonoscopy (04/10/10) History of rotator cuff surgery History of repair of laceration History of fusion of cervical spine History of laminectomy Family History Father HTN (hypertension) Lung cancer Mother HTN (hypertension) Dementia Breast cancer Maternal Grandmother No problems noted. Maternal Grandfather No problems noted. Paternal Grandfather No problems noted. Paternal Grandmother No problems noted. Brother Throat cancer Lung cancer Brother No problems noted. Daughter No problems noted. Daughter No problems noted. Sister Ovarian cancer Sister No problems noted. Sister No problems noted. Sister No problems noted. Maternal Aunt Breast cancer Social History Household Members: Family Housing: House Alcohol intake: current Alcohol intake frequency: a few times a week Patient Tobacco Use Status: Current everyday Tobacco user Tobacco use type: Cigarette Cigarette Packs Per Day: 1 Cigarettes Per Day: 20.0 e-Cigarette/Vaping Use: Never Used service: No Current occupational status: disabled Cognitive needs: No Hearing needs: No Vision needs: Yes Questionnaire PHQ-9 Over the last 2 weeks, how often have you been bothered by any of the following problems? 49453 - PHQ-9 Billing: Patient declined-do not bill Source: Developed by Drs. Juan Motley, Blanca Manzo, Kelton Mooney and colleagues, with an educational homa from [email or web address]. Thrive Questionnaire Date Thrive assessed: 05/02/21 Review of Systems Const Denies chills and Denies fever(s) ENT Denies epistaxis and Denies nasal discharge Card Denies chest pain Resp Denies chest congestion and Denies hemoptysis GI Denies diarrhea and Denies nausea Skin/Breast Denies rash Neuro Reports no additional complaints Psych Reports no additional complaints Endo Reports no additional complaints Physical exam (Primary Care) Vital Signs: Last Vital Signs Pulse 65 09/05/23 12:43 BP 126/80 09/05/23 12:43 Pulse Ox 95 09/05/23 12:43 Oxygen Delivery Method Room Air 09/05/23 12:43 BMI result Body Mass Index 23.1 Tobacco/Smoking Status: Tobacco use Status Tobacco use date assessed 09/05/23 09/05/23 12:47 Patient Tobacco Use Status Current everyday Tobacco 09/05/23 12:47 Tobacco use type Cigarette 09/05/23 12:47 e-Cigarette/Vaping Use Never Used 09/05/23 12:47 Are you ready to quit: No Tobacco cessation counseling provided: Yes Relapse Prevention: discussed the importance of a supportive environment CPT code: 46508 - 4-10 Minutes Thrive Assessment: Date of Thrive Assessment Date Thrive assessed 05/02/21 09/05/23 12:47 Const General: cooperative, comfortable and no acute distress Orientation/consciousness: patient oriented x3 HENMT Other: Mild throat erythema uvula is midline no exudate Head: Yes normocephalic Eyes General: appearance normal, both eyes and all related structures Neck Neck: Yes supple Resp Other: Mild wheezing right lung posteriorly Effort & Inspection: normal respiratory effort, no cough and no stridor Cardio Rhythm: regular rhythm Heart sounds: S1 normal heart sound present and S2 normal heart sound present Skin General skin exam: turgor normal Neuro General: patient oriented x3, tone normal and moves all extremities Extrem Other: Limited range of motion both shoulders Right lower extremity: no edema Left lower extremity: no edema Assessment and Plan Assessment & Plan (1) Failed back syndrome: Code(s): M96.1 - Postlaminectomy syndrome, not elsewhere classified (2) Opioid dependence: Comment: CONTROLLED NATURE OF MEDICATION WAS DISCUSSED, IT IS IMPORTANT TO NOTIFY ME OF CHANGE OF PHARMACY, OR IF TRAVELING. DO NOT SHARE THE MEDICATION WITH ANYBODY, KEEP IT SAFE AWAY FROM THE HANDS OF SMALL CHILDREN, AND ONLY TAKE IT PRESCRIBED. THIS MEDICATION HAVE A TENDENCY TO BE ABUSED, HABIT-FORMING, AND IT CAN CAUSE SEVERE CONSTIPATION ALONG WITH OTHER ALLERGIC REACTIONS. LONG-TERM USE OF NARCOTIC MEDICATIONS HAVE SHOWN TO INCREASE SENSITIVITY TO PAIN. Code(s): F11.20 - Opioid dependence, uncomplicated Qualifiers: Substance use status: uncomplicated Qualified Code(s): F11.20 - Opioid dependence, uncomplicated (3) Pain management: Code(s): R52 - Pain, unspecified (4) GERD (gastroesophageal reflux disease): Code(s): K21.9 - Gastro-esophageal reflux disease without esophagitis Qualifiers: Esophagitis presence: without esophagitis Qualified Code(s): K21.9 - Gastro-esophageal reflux disease without esophagitis (5) Tobacco abuse: Code(s): Z72.0 - Tobacco use (6) COPD (chronic obstructive pulmonary disease): Code(s): J44.9 - Chronic obstructive pulmonary disease, unspecified Qualifiers: COPD type: chronic bronchitis Chronic bronchitis type: mixed simple and mucopurulent Qualified Code(s): J41.8 - Mixed simple and mucopurulent chronic bronchitis (7) Bilateral shoulder pain: Code(s): M25.511 - Pain in right shoulder; M25.512 - Pain in left shoulder Qualifiers: Chronicity: chronic Qualified Code(s): M25.511 - Pain in right shoulder; M25.512 - Pain in left shoulder; G89.29 - Other chronic pain Plan Patient is a 68-year-old gentleman came in today for his pain medication refill Is complaining of sore and burning throat off and on Patient have a GERD and continue to drink beer We discussed the diet controlled and management of GERD today I am adding famotidine as well But most importantly patient needs to avoid the aggravating factors. He is also requesting a letter to use a special hunting device due to his shoulder surgery he is not able to use the regular bow Letter provided Patient have a failed back syndrome and is currently taking oxycodone 10 mg 3 times a day Patient is aware of side effects and is complying with the treatment plan Prostate cancer management through urology Continue to smoke and have no desire to stop Medications: New famotidine 20 mg PO BEDTIME 90 tabs 0RF Refilled oxycodone partial refill allowed 10 mg PO TID 90 tabs 0RF pain 30 days F11.20 - Opioid dependence, uncomplicated, M96.1 - Postlaminectomy syndrome, not elsewhere classified, R52 - Pain, unspecified cyclobenzaprine 5 mg PO BEDTIME PRN 30 tabs 0RF muscle spasm 30 days M62.838 - Other muscle spasm, R52 - Pain, unspecified Coding Level of Care Code Est Pt Level 4 (19840) Diagnoses Failed back syndrome M96.1 Uncomplicated opioid dependence F11.20 Substance use status: uncomplicated Pain management R52 Gastroesophageal reflux disease without esophagitis K21.9 Esophagitis presence: without esophagitis Tobacco abuse Z72.0 Mixed simple and mucopurulent chronic bronchitis J41.8 COPD type: chronic bronchitis Chronic bronchitis type: mixed simple and mucopurulent Chronic pain of both shoulders M25.511; M25.512; G89.29 Chronicity: chronic Additional Codes Vital Signs *Quality* - CPT code: 86309 - 4-10 Minutes ([id number])
== END 2023-09-05 14:46 | disposition home or self-care (01) ==
PROVIDERS: PCP Internal Medicine; Visit Provider Internal Medicine
DX: M96.1 Postlaminectomy syndrome, not elsewhere classified (principal); F11.20 Opioid dependence, uncomplicated; J41.8 Mixed simple and mucopurulent chronic bronchitis; R52 Pain, unspecified; K21.9 Gastro-esophageal reflux disease without esophagitis; Z72.0 Tobacco use; M25.511 Pain in right shoulder; M25.512 Pain in left shoulder; G89.29 Other chronic pain
CPT/HCPCS: 99214

== ENCOUNTER 2023-09-09 11:20 | Outpatient (AMB) | payer MEDICARE, MEDICAID, SELFPAY ==
--- NOTE | 2023-09-09 11:54 | MHC.OFFVIS ---
Intake Intake Visit Reasons: [facility] follow up(pa set) Intake Note: Patient is Present for Follow Up/Eligard Injection Urology Medication: Eligard(Q6M), Finasteride, Antibiotic Allergies: None Blood Thinners: None Pharmacy: [facility] Allergies No Known Allergies Allergy (Verified 09/05/23 12:45) HPI HPI Comments History of Present Illness Details Daryn is a pleasant male. He is a patient of Dr. Woods. He is seen for the following urologic conditions - elevated PSA - lower urinary tract symptoms Finished external beam radiation with Dr. Austin at [facility] Second Gn[facility] today Continue with finasteride Had some proctitis which is now starting to resolve Otherwise tolerated therapy PSA 05/02 0.6 [facility] 03/04/23 with finasteride - MAB during XRT ([facility] bicalutamide + finasteride) Prostate cancer - Grade Group Grade Group 4 - EXBRT with maximum androgen blockade ([facility]) Adenocarcinoma of the prostate (T1c N0 M0, Nelli score 3+5, Grade Group 4, PSA at Diagnosis 5.4) - NCCN high risk group Prostate cancer was diagnosed Dr Flower Diagnosis was reached by - for elevated PSA - 5.4 F 11% - 40cc Date: 12/02 12 Core biopsy Positive Biopsies: 4 Negative Biopsies: 8 - (%) Positive: Locations: Left base lateral 3+4 25%, left base medial 3+4 25%, left mid lateral 3+3 5%, left mid medial 3+5 25% TNM Classification of Malignant Tumours (TNM) - T2a Staging Imaging - 12/02 PMSA - metabolically active prostate, question of rib involvement however unlikely - 01/30 prostate MRI - left posterolateral mid, base 1.5 cm PI-RADS 4 with abutment, no clear evidence of extracapsular extension Associated conditions erectile dysfunction Mild Therapeutic plan: Space Oar and marker placement Lower urinary tract symptoms Nocturia 2-3 Variable stream Prior medications include tamsulosin, finasteride and terazosin ALEK 1+ prominent medial sulcus Low libido Reports decline in desire Baseline chronic opiate use T 10/01 452 PSA 05/01 5.9, 10/01 5.4 11% PFSH Medical History Colon cancer screening Nocturia Heartburn Muscle spasms of neck Pain management Opioid dependence Hypertension, essential GERD (gastroesophageal reflux disease) Smokers' cough Drug induced constipation COPD (chronic obstructive pulmonary disease) Tobacco abuse Asthma Failed back syndrome Surgical History History of colonoscopy (04/10/10) History of rotator cuff surgery History of repair of laceration History of fusion of cervical spine History of laminectomy Family History Father HTN (hypertension) Lung cancer Mother HTN (hypertension) Dementia Breast cancer Maternal Grandmother No problems noted. Maternal Grandfather No problems noted. Paternal Grandfather No problems noted. Paternal Grandmother No problems noted. Brother Throat cancer Lung cancer Brother No problems noted. Daughter No problems noted. Daughter No problems noted. Sister Ovarian cancer Sister No problems noted. Sister No problems noted. Sister No problems noted. Maternal Aunt Breast cancer Social History Household Members: Family Housing: House Alcohol intake: current Alcohol intake frequency: a few times a week Patient Tobacco Use Status: Current everyday Tobacco user Tobacco use type: Cigarette Cigarette Packs Per Day: 1 Cigarettes Per Day: 20.0 e-Cigarette/Vaping Use: Never Used service: No Current occupational status: disabled Cognitive needs: No Hearing needs: No Vision needs: Yes Review of Systems Const Denies chills and Denies fever(s) Card Reports no additional complaints and Denies syncope Resp Denies cough GI Denies abdominal pain and Denies heartburn Reports as per HPI and Denies change in libido Neuro Denies syncope Psych Denies change in libido Endo Denies change in libido Physical Exam Const General: cooperative, healthy appearing, comfortable and no acute distress Orientation/consciousness: patient oriented x3 HEENT Face and sinus: Yes normal facial exam Mouth: moist mucous membranes Neck Neck: Yes normal visual inspection, Yes full ROM and Yes trachea midline Chest Chest palpation & inspection: normal inspection of the chest Resp Effort & Inspection: normal respiratory effort, able to speak in complete sentences and no respiratory distress GI Inspection: Yes normal to inspection Back/Spine/Pelvis Cervical Spine: normal cervical lordosis Thoracic/Lumbar Spine: thoracic and lumbar spine normal to inspection Skin General skin exam: no rashes or lesions noted Neuro General: patient oriented x3, gait normal, tone normal and moves all extremities Extrem General: Yes normal to inspection and Yes capillary refill normal Office Meds Eligard (6 month) 45 mg (6 month) subcutaneous syringe Performing Provider: Samy Flower MD Performing Location: [facility] Administered by: Drew Fisher LPN on 09/09/23 12:12 Dose Route Admin Location Dispensed Lot Number Expiration Date [facility] [employer] [id number] 45 mg subcut belly 45 mg [id number] 11/10/24 [id number] [place]. Assessment & Plan Assessment & Plan (1) Prostate cancer: Comment: 12/02 PSA 5.4, high risk [place] 3 + 5, 4 cores Code(s): C61 - Malignant neoplasm of prostate Plan Three month follow-up labs Orders: Orders Testosterone, Total 3 Months C61 - Malignant neoplasm of prostate Prostate Specific Antigen 3 Months C61 - Malignant neoplasm of prostate AMB Leuprolide Injection - Practice Supplied Today C61 - Malignant neoplasm of prostate Patient Instructions: Imaging studies, laboratory and physical exam results were discussed and reviewed in detail. No major barriers to patient understanding were identified. An opportunity to ask questions regarding the treatment plan was provided. All questions were answered. The patient expressed understanding and agreement with the above treatment plan. The patient is aware they should contact our office by phone for worsening of their current condition or the appearance of new urologic symptoms. Compliance is encouraged with any medications and followup testing that is ordered. It is a privilege to participate in the urologic care of your patient. If you have any questions or concerns regarding treatment for the above conditions, or other urologic issues, please do not hesitate to contact me. The office telephone contact is [phone]. This note is constructed using voice recognition software. While every effort has been made to ensure accuracy health and wellness coach errors may have been included. Yours sincerely, Dr Samy Flower MD, [facility] - Urology Providers of Expert, Compassionate Care for the Genitourinary System Coding Level of Care Code Est Pt Level 3 (56387) Diagnoses Prostate cancer C61
== END 2023-09-09 12:20 | disposition home or self-care (01) ==
PROVIDERS: PCP Internal Medicine; Visit Provider Urology
DX: C61 Malignant neoplasm of prostate (principal)
CPT/HCPCS: 99213

== ENCOUNTER → 2023-09-09 11:20 | Outpatient (BNVA) | payer MEDICARE, MEDICAID, SELFPAY | PROVIDERS: PCP Internal Medicine; Visit Provider Urology | DX: C61 Malignant neoplasm of prostate (principal) | CPT/HCPCS: 96402; 99212; J9217 ==

== ENCOUNTER 2023-09-24 08:09 | Outpatient (AMB) | payer MEDICARE, SELFPAY ==
--- NOTE | 2023-09-24 08:10 | MHC.PC.OV ---
Vital Signs 09/24/23 08:11 Height 5 ft 11 in Weight 165 lb BMI 23.0 BP 102/64 Blood Pressure Location Rt brachial Position Sitting Pulse 87 Pulse Source Pulse Oximeter Pulse Oximetry (%) 99 Oxygen Delivery Method Room Air Intake Visit Reasons: 1 Month Follow Up ~ Allergies No Known Allergies Allergy (Verified 09/24/23 08:13) Medication List - Last Reconciled 09/24/23 by Lloyd Woods MD albuterol sulfate 90 mcg/actuation (ProAir HFA) 1 inh inhalation QID PRN 30 days amlodipine 10 mg PO DAILY 90 days Anoro Ellipta 62.5-25 mcg/actuation (umeclidinium-vilanterol) 1 inh inhalation DAILY NS cetirizine 10 mg PO DAILY 90 days cyclobenzaprine 5 mg PO BEDTIME PRN 30 days finasteride 5 mg PO DAILY 90 days gabapentin 600 mg PO BEDTIME 30 days ipratropium-albuterol 0.5 mg-3 mg(2.5 mg base)/3 mL 3 mL inhalation Q6-8H PRN 30 days leuprolide acetate (6 month) (Eligard) 45 mg subcut [id number] lisinopril 40 mg PO DAILY 90 days montelukast 10 mg PO DAILY 90 days omeprazole 20 mg PO DAILY oxycodone 10 mg PO TID 30 days sucralfate (Carafate) 10 mL PO BID 30 days Tobacco use date assessed: 09/24/23 Fall risk assessment: No Falls in past year Last assessed Fall Risk: 09/24/23 Dental Screening Dental Screen Date: 09/24/23 Did you have a dental visit in the last 12 months?: Yes Did you have a dental problem in the last 6 months where you did not have access to dental care?: No Was dental information given to patient?: Patient has dentist HPI 1 Month Follow Up ~ HPI Details Patient is a 68-year-old gentleman came in today for his pain medication refill And has been looking over his sisters cats over the weekend and now having chest congestion As he is allergic to cats, but he has taken his inhaler this morning and is feeling better. Patient says that he is back in his own house away from gets now Patient have a failed back syndrome and is currently taking oxycodone 10 mg 3 times a day Patient is aware of side effects and is complying with the treatment plan Prostate cancer management through urology Continue to smoke and have no desire to stop PFSH Medical History Colon cancer screening Nocturia Heartburn Muscle spasms of neck Pain management Opioid dependence Hypertension, essential GERD (gastroesophageal reflux disease) Smokers' cough Drug induced constipation COPD (chronic obstructive pulmonary disease) Tobacco abuse Asthma Failed back syndrome Surgical History History of colonoscopy (04/10/10) History of rotator cuff surgery History of repair of laceration History of fusion of cervical spine History of laminectomy Family History Father HTN (hypertension) Lung cancer Mother HTN (hypertension) Dementia Breast cancer Maternal Grandmother No problems noted. Maternal Grandfather No problems noted. Paternal Grandfather No problems noted. Paternal Grandmother No problems noted. Brother Throat cancer Lung cancer Brother No problems noted. Daughter No problems noted. Daughter No problems noted. Sister Ovarian cancer Sister No problems noted. Sister No problems noted. Sister No problems noted. Maternal Aunt Breast cancer Social History Household Members: Family Housing: House Alcohol intake: current Alcohol intake frequency: a few times a week Patient Tobacco Use Status: Current everyday Tobacco user Tobacco use type: Cigarette Cigarette Packs Per Day: 1 Cigarettes Per Day: 20.0 e-Cigarette/Vaping Use: Never Used service: No Current occupational status: disabled Cognitive needs: No Hearing needs: No Vision needs: Yes Questionnaire Thrive Questionnaire Date Thrive assessed: 05/02/21 Review of Systems Const Denies chills and Denies fever(s) ENT Denies epistaxis and Denies nasal discharge Card Denies chest pain Resp Denies hemoptysis GI Denies diarrhea and Denies nausea Skin/Breast Denies rash Neuro Reports no additional complaints Psych Reports no additional complaints Endo Reports no additional complaints Physical exam (Primary Care) Vital Signs: Last Vital Signs Pulse 87 09/24/23 08:11 BP 102/64 09/24/23 08:11 Pulse Ox 99 09/24/23 08:11 Oxygen Delivery Method Room Air 09/24/23 08:11 BMI result Body Mass Index 23.0 Tobacco/Smoking Status: Tobacco use Status Tobacco use date assessed 09/24/23 09/24/23 08:16 Patient Tobacco Use Status Current everyday Tobacco 09/24/23 08:11 Tobacco use type Cigarette 09/24/23 08:11 e-Cigarette/Vaping Use Never Used 09/24/23 08:11 Thrive Assessment: Date of Thrive Assessment Date Thrive assessed 05/02/21 09/24/23 08:11 Const General: cooperative, comfortable and no acute distress Orientation/consciousness: patient oriented x3 HENMT Head: Yes normocephalic Eyes General: appearance normal, both eyes and all related structures Neck Neck: Yes supple Resp Effort & Inspection: normal respiratory effort and no stridor Cardio Rhythm: regular rhythm Heart sounds: S1 normal heart sound present and S2 normal heart sound present Skin General skin exam: turgor normal Neuro General: patient oriented x3, tone normal and moves all extremities Extrem Right lower extremity: no edema Left lower extremity: no edema Assessment and Plan Assessment & Plan (1) Failed back syndrome: Code(s): M96.1 - Postlaminectomy syndrome, not elsewhere classified (2) Opioid dependence: Comment: CONTROLLED NATURE OF MEDICATION WAS DISCUSSED, IT IS IMPORTANT TO NOTIFY ME OF CHANGE OF PHARMACY, OR IF TRAVELING. DO NOT SHARE THE MEDICATION WITH ANYBODY, KEEP IT SAFE AWAY FROM THE HANDS OF SMALL CHILDREN, AND ONLY TAKE IT PRESCRIBED. THIS MEDICATION HAVE A TENDENCY TO BE ABUSED, HABIT-FORMING, AND IT CAN CAUSE SEVERE CONSTIPATION ALONG WITH OTHER ALLERGIC REACTIONS. LONG-TERM USE OF NARCOTIC MEDICATIONS HAVE SHOWN TO INCREASE SENSITIVITY TO PAIN. Code(s): F11.20 - Opioid dependence, uncomplicated Qualifiers: Substance use status: uncomplicated Qualified Code(s): F11.20 - Opioid dependence, uncomplicated (3) Pain management: Code(s): R52 - Pain, unspecified (4) Tobacco abuse: Code(s): Z72.0 - Tobacco use (5) COPD (chronic obstructive pulmonary disease): Code(s): J44.9 - Chronic obstructive pulmonary disease, unspecified Qualifiers: COPD type: chronic bronchitis Chronic bronchitis type: mixed simple and mucopurulent Qualified Code(s): J41.8 - Mixed simple and mucopurulent chronic bronchitis Plan Patient is a 68-year-old gentleman came in today for his pain medication refill Is complaining of sore and burning throat off and on Patient have a GERD and continue to drink beer We discussed the diet controlled and management of GERD today I am adding famotidine as well But most importantly patient needs to avoid the aggravating factors. He is also requesting a letter to use a special hunting device due to his shoulder surgery he is not able to use the regular bow Letter provided Patient have a failed back syndrome and is currently taking oxycodone 10 mg 3 times a day Patient is aware of side effects and is complying with the treatment plan Prostate cancer management through urology Continue to smoke and have no desire to stop Medications: Refilled oxycodone partial refill allowed 10 mg PO TID 90 tabs 0RF pain 30 days F11.20 - Opioid dependence, uncomplicated, M96.1 - Postlaminectomy syndrome, not elsewhere classified, R52 - Pain, unspecified cyclobenzaprine 5 mg PO BEDTIME PRN 30 tabs 0RF muscle spasm 30 days M62.838 - Other muscle spasm, R52 - Pain, unspecified gabapentin 600 mg PO BEDTIME 30 tabs 0RF 30 days M96.1 - Postlaminectomy syndrome, not elsewhere classified, R52 - Pain, unspecified Coding Level of Care Code Est Pt Level 3 (84927) Diagnoses Failed back syndrome M96.1 Uncomplicated opioid dependence F11.20 Substance use status: uncomplicated Pain management R52 Tobacco abuse Z72.0 Mixed simple and mucopurulent chronic bronchitis J41.8 COPD type: chronic bronchitis Chronic bronchitis type: mixed simple and mucopurulent
[2023-09-24 08:11] VITALS: BP 102/64; PULSE 87; O2SAT 99; BMI 23.0
== END 2023-09-24 09:17 | disposition home or self-care (01) ==
PROVIDERS: PCP Internal Medicine; Visit Provider Internal Medicine
DX: M96.1 Postlaminectomy syndrome, not elsewhere classified (principal); F11.20 Opioid dependence, uncomplicated; J41.8 Mixed simple and mucopurulent chronic bronchitis; R52 Pain, unspecified; Z72.0 Tobacco use
CPT/HCPCS: 99213

== ENCOUNTER 2023-12-09 11:07 | Outpatient (AMB) | payer MEDICARE, SELFPAY ==
[2023-12-09 11:12] VITALS: BP 130/64; PULSE 86; O2SAT 95; BMI 23.8
--- NOTE | 2023-12-09 11:12 | MHC.PC.OV ---
Vital Signs 12/09/23 11:12 Height 5 ft 11 in Weight 171 lb BMI 23.8 BP 130/64 Blood Pressure Location Rt brachial Position Sitting Pulse 86 Pulse Source Pulse Oximeter Pulse Oximetry (%) 95 Oxygen Delivery Method Room Air Intake Visit Reasons: 1 Month Follow Up ~ Allergies No Known Allergies Allergy (Verified 12/09/23 11:14) Medication List - Last Reconciled 12/09/23 by Lloyd Woods MD albuterol sulfate 90 mcg/actuation (ProAir HFA) 1 inh inhalation QID PRN 30 days amlodipine 10 mg PO DAILY 90 days Anoro Ellipta 62.5-25 mcg/actuation (umeclidinium-vilanterol) 1 inh inhalation DAILY NS cetirizine 10 mg PO DAILY 90 days cyclobenzaprine 5 mg PO BEDTIME PRN 30 days finasteride 5 mg PO DAILY 90 days gabapentin 600 mg PO BEDTIME 30 days ipratropium-albuterol 0.5 mg-3 mg(2.5 mg base)/3 mL 3 mL inhalation Q6-8H PRN 30 days leuprolide acetate (6 month) (Eligard) 45 mg subcut [id number] lisinopril 40 mg PO DAILY 90 days montelukast 10 mg PO DAILY 90 days omeprazole 20 mg PO DAILY oxycodone 10 mg PO TID 30 days sucralfate (Carafate) 10 mL PO BID 30 days Tobacco use date assessed: 12/09/23 Fall risk assessment: No Falls in past year Last assessed Fall Risk: 12/09/23 Dental Screening Dental Screen Date: 12/09/23 Did you have a dental visit in the last 12 months?: Yes Did you have a dental problem in the last 6 months where you did not have access to dental care?: No Was dental information given to patient?: Patient has dentist HPI 1 Month Follow Up ~ HPI Details Patient is a 68-year-old gentleman came in today for his follow-up appointment Patient have a history of failed back syndrome, he is narcotic dependent for pain management Patient is complying with the treatment plan no signs of abuse Also have chronic back muscle spasms for that he takes muscle relaxer He also have a history of COPD, drug induced constipation, smoker's cough, chronic GERD, hypertension, patient is going through treatment for prostate cancer History of hemorrhoids, pulmonary nodule Environmental allergies, nicotine dependence, chronic bilateral shoulder pains, chronic neck pain Medication list reviewed Patient is due for labs Pain contract up-to-date Urine drug screen up-to-date [facility] Medical History Colon cancer screening Nocturia Heartburn Muscle spasms of neck Pain management Opioid dependence Hypertension, essential GERD (gastroesophageal reflux disease) Smokers' cough Drug induced constipation COPD (chronic obstructive pulmonary disease) Tobacco abuse Asthma Failed back syndrome Surgical History History of colonoscopy (04/10/10) History of rotator cuff surgery History of repair of laceration History of fusion of cervical spine History of laminectomy Family History Father HTN (hypertension) Lung cancer Mother HTN (hypertension) Dementia Breast cancer Maternal Grandmother No problems noted. Maternal Grandfather No problems noted. Paternal Grandfather No problems noted. Paternal Grandmother No problems noted. Brother Throat cancer Lung cancer Brother No problems noted. Daughter No problems noted. Daughter No problems noted. Sister Ovarian cancer Sister No problems noted. Sister No problems noted. Sister No problems noted. Maternal Aunt Breast cancer Social History Household Members: Family Housing: House Alcohol intake: current Alcohol intake frequency: a few times a week Patient Tobacco Use Status: Current everyday Tobacco user Tobacco use type: Cigarette Cigarette Packs Per Day: 1 Cigarettes Per Day: 20.0 e-Cigarette/Vaping Use: Never Used service: No Current occupational status: disabled Cognitive needs: No Hearing needs: No Vision needs: Yes Questionnaire PHQ-9 Over the last 2 weeks, how often have you been bothered by any of the following problems? [id number] - PHQ-9 Billing: Patient declined-do not bill Source: Developed by Drs. Juan Motley, Blanca Manzo, Kelton Mooney and colleagues, with an educational homa from [employer]. Thrive Questionnaire Date Thrive assessed: 05/02/21 AUDIT C Alcohol Use Questionnaire (AUDIT-C) 1. How often do you have a drink containing alcohol?: Monthly or less 2. How many drinks containing alcohol do you have on a typical day when you are drinking?: 1 or 2 3. How often do you have six or more drinks on one occasion?: Never Total Score: 1 Score Reviewed/Action Taken: Yes Review of Systems Const Denies chills and Denies fever(s) ENT Denies epistaxis and Denies nasal discharge Card Denies chest pain Resp Denies chest congestion and Denies hemoptysis GI Denies diarrhea and Denies nausea Skin/Breast Denies rash Neuro Reports no additional complaints Psych Reports no additional complaints Endo Reports no additional complaints Physical exam (Primary Care) Vital Signs: Last Vital Signs Pulse 86 12/09/23 11:12 BP 130/64 12/09/23 11:12 Pulse Ox 95 12/09/23 11:12 Oxygen Delivery Method Room Air 12/09/23 11:12 BMI result Body Mass Index 23.8 Tobacco/Smoking Status: Tobacco use Status Tobacco use date assessed 12/09/23 12/09/23 11:15 Patient Tobacco Use Status Current everyday Tobacco 12/09/23 11:15 Tobacco use type Cigarette 12/09/23 11:15 e-Cigarette/Vaping Use Never Used 12/09/23 11:15 Thrive Assessment: Date of Thrive Assessment Date Thrive assessed 05/02/21 12/09/23 11:15 Const General: cooperative, comfortable and no acute distress Orientation/consciousness: patient oriented x3 HENMT Head: Yes normocephalic Eyes General: appearance normal, both eyes and all related structures Neck Neck: Yes supple Resp Effort & Inspection: normal respiratory effort, no cough and no stridor Cardio Rhythm: regular rhythm Heart sounds: S1 normal heart sound present and S2 normal heart sound present Skin General skin exam: turgor normal Neuro General: patient oriented x3, tone normal and moves all extremities Extrem Right lower extremity: no edema Left lower extremity: no edema Assessment and Plan Assessment & Plan (1) Hypertension, essential: Code(s): I10 - Essential (primary) hypertension (2) Failed back syndrome: Code(s): M96.1 - Postlaminectomy syndrome, not elsewhere classified (3) Tobacco abuse: Code(s): Z72.0 - Tobacco use (4) COPD (chronic obstructive pulmonary disease): Code(s): J44.9 - Chronic obstructive pulmonary disease, unspecified Qualifiers: COPD type: chronic bronchitis Chronic bronchitis type: mixed simple and mucopurulent Qualified Code(s): J41.8 - Mixed simple and mucopurulent chronic bronchitis (5) Bilateral shoulder pain: Code(s): M25.511 - Pain in right shoulder; M25.512 - Pain in left shoulder Qualifiers: Chronicity: chronic Qualified Code(s): M25.511 - Pain in right shoulder; M25.512 - Pain in left shoulder; G89.29 - Other chronic pain (6) Nicotine dependence: Code(s): F17.200 - Nicotine dependence, unspecified, uncomplicated Qualifiers: Nicotine product type: cigarettes Substance use status: uncomplicated Qualified Code(s): F17.210 - Nicotine dependence, cigarettes, uncomplicated (7) Prostate cancer: Comment: 12/02 PSA 5.4, high risk Nelli 3 + 5, 4 cores Code(s): C61 - Malignant neoplasm of prostate (8) Environmental allergies: Code(s): Z91.09 - Other allergy status, other than to drugs and biological substances (9) Right lower lobe pulmonary nodule: Code(s): R91.1 - Solitary pulmonary nodule (10) Hemorrhoids: Comment: High-fiber diet avoid strain Code(s): K64.9 - Unspecified hemorrhoids Qualifiers: Hemorrhoid type: first degree Qualified Code(s): K64.0 - First degree hemorrhoids (11) Muscle spasms of neck: Code(s): M62.838 - Other muscle spasm (12) Opioid dependence: Comment: CONTROLLED NATURE OF MEDICATION WAS DISCUSSED, IT IS IMPORTANT TO NOTIFY ME OF CHANGE OF PHARMACY, OR IF TRAVELING. DO NOT SHARE THE MEDICATION WITH ANYBODY, KEEP IT SAFE AWAY FROM THE HANDS OF SMALL CHILDREN, AND ONLY TAKE IT PRESCRIBED. THIS MEDICATION HAVE A TENDENCY TO BE ABUSED, HABIT-FORMING, AND IT CAN CAUSE SEVERE CONSTIPATION ALONG WITH OTHER ALLERGIC REACTIONS. LONG-TERM USE OF NARCOTIC MEDICATIONS HAVE SHOWN TO INCREASE SENSITIVITY TO PAIN. Code(s): F11.20 - Opioid dependence, uncomplicated Qualifiers: Substance use status: uncomplicated Qualified Code(s): F11.20 - Opioid dependence, uncomplicated (13) GERD (gastroesophageal reflux disease): Code(s): K21.9 - Gastro-esophageal reflux disease without esophagitis Qualifiers: Esophagitis presence: without esophagitis Qualified Code(s): K21.9 - Gastro-esophageal reflux disease without esophagitis (14) Smokers' cough: Code(s): J41.0 - Simple chronic bronchitis (15) Drug induced constipation: Code(s): K59.03 - Drug induced constipation Plan Patient is a 68-year-old gentleman came in today for his follow-up appointment Patient have a history of failed back syndrome, he is narcotic dependent for pain management Patient is complying with the treatment plan no signs of abuse Also have chronic back muscle spasms for that he takes muscle relaxer He also have a history of COPD, drug induced constipation, smoker's cough, chronic GERD, hypertension, patient is going through treatment for prostate cancer History of hemorrhoids, pulmonary nodule Environmental allergies, nicotine dependence, chronic bilateral shoulder pains, chronic neck pain Patient continued to smoke once again advised patient to stop as soon as possible Other doctors patient seeing are Dr Amaya school psychology specialist And Dr. Flower Urology for prostate cancer Medication list reviewed Patient is due for labs Pain contract up-to-date Urine drug screen up-to-date Orders: Orders Complete Blood Count Auto Diff Today C61 - Malignant neoplasm of prostate, F11.20 - Opioid dependence, uncomplicated, F17.200 - Nicotine dependence, unspecified, uncomplicated, I10 - Essential (primary) hypertension, J41.0 - Simple chronic bronchitis, J44.9 - Chronic obstructive pulmonary disease, unspecified, K21.9 - Gastro-esophageal reflux disease without esophagitis, K59.03 - Drug induced constipation, K64.9 - Unspecified hemorrhoids, M25.511 - Pain in right shoulder, M25.512 - Pain in left shoulder, M62.838 - Other muscle spasm, M96.1 - Postlaminectomy syndrome, not elsewhere classified, R91.1 - Solitary pulmonary nodule, Z72.0 - Tobacco use, Z91.09 - Other allergy status, other than to drugs and biological substances Comprehensive Met. Panel Today C61 - Malignant neoplasm of prostate, F11.20 - Opioid dependence, uncomplicated, F17.200 - Nicotine dependence, unspecified, uncomplicated, I10 - Essential (primary) hypertension, J41.0 - Simple chronic bronchitis, J44.9 - Chronic obstructive pulmonary disease, unspecified, K21.9 - Gastro-esophageal reflux disease without esophagitis, K59.03 - Drug induced constipation, K64.9 - Unspecified hemorrhoids, M25.511 - Pain in right shoulder, M25.512 - Pain in left shoulder, M62.838 - Other muscle spasm, M96.1 - Postlaminectomy syndrome, not elsewhere classified, R91.1 - Solitary pulmonary nodule, Z72.0 - Tobacco use, Z91.09 - Other allergy status, other than to drugs and biological substances LDL Cholesterol Direct Today C61 - Malignant neoplasm of prostate, F11.20 - Opioid dependence, uncomplicated, F17.200 - Nicotine dependence, unspecified, uncomplicated, I10 - Essential (primary) hypertension, J41.0 - Simple chronic bronchitis, J44.9 - Chronic obstructive pulmonary disease, unspecified, K21.9 - Gastro-esophageal reflux disease without esophagitis, K59.03 - Drug induced constipation, K64.9 - Unspecified hemorrhoids, M25.511 - Pain in right shoulder, M25.512 - Pain in left shoulder, M62.838 - Other muscle spasm, M96.1 - Postlaminectomy syndrome, not elsewhere classified, R91.1 - Solitary pulmonary nodule, Z72.0 - Tobacco use, Z91.09 - Other allergy status, other than to drugs and biological substances Medications: Refilled cyclobenzaprine 5 mg PO BEDTIME 30 days PRN 30 tabs 0RF muscle spasm M62.838 - Other muscle spasm, R52 - Pain, unspecified lisinopril 40 mg PO DAILY 90 days 90 tabs 3RF oxycodone partial refill allowed 10 mg PO TID 30 days 90 tabs 0RF pain F11.20 - Opioid dependence, uncomplicated, M96.1 - Postlaminectomy syndrome, not elsewhere classified, R52 - Pain, unspecified cetirizine 10 mg PO DAILY 90 days 90 tabs 0RF gabapentin 600 mg PO BEDTIME 30 days 30 tabs 0RF M96.1 - Postlaminectomy syndrome, not elsewhere classified, R52 - Pain, unspecified Coding Level of Care Code Est Pt Level 4 (28859) Diagnoses Hypertension, essential I10 Failed back syndrome M96.1 Tobacco abuse Z72.0 Mixed simple and mucopurulent chronic bronchitis J41.8 COPD type: chronic bronchitis Chronic bronchitis type: mixed simple and mucopurulent Chronic pain of both shoulders M25.511; M25.512; G89.29 Chronicity: chronic Cigarette nicotine dependence without complication F17.210 Nicotine product type: cigarettes Substance use status: uncomplicated Prostate cancer C61 Environmental allergies Z91.09 Right lower lobe pulmonary nodule R91.1 Grade I hemorrhoids K64.0 Hemorrhoid type: first degree Muscle spasms of neck M62.838 Uncomplicated opioid dependence F11.20 Substance use status: uncomplicated Gastroesophageal reflux disease without esophagitis K21.9 Esophagitis presence: without esophagitis Smokers' cough J41.0 Drug induced constipation K59.03
== END 2023-12-09 11:32 | disposition home or self-care (01) ==
PROVIDERS: PCP Internal Medicine; Visit Provider Internal Medicine
DX: J41.8 Mixed simple and mucopurulent chronic bronchitis (principal); C61 Malignant neoplasm of prostate; F11.20 Opioid dependence, uncomplicated; J41.0 Simple chronic bronchitis; I10 Essential (primary) hypertension; M96.1 Postlaminectomy syndrome, not elsewhere classified; Z72.0 Tobacco use; M25.511 Pain in right shoulder; M25.512 Pain in left shoulder; F17.210 Nicotine dependence, cigarettes, uncomplicated; Z91.09 Other allergy status, other than to drugs and biological substances
CPT/HCPCS: 99214

== ENCOUNTER 2023-12-10 06:02 | Outpatient (REF) | payer MEDICARE, MEDICAID, SELFPAY ==
[2023-12-10 11:24] LABS: MANUAL DIFF FLAG NO
[2023-12-10 11:39] LABS: Basophils Percent Auto 0.6 % (0-2); Eosinophils Absolute Auto 0.3 X10*3/uL (0.0-0.4); Eosinophils Percent Auto 4.3 % (0-4); Hematocrit 40.6 % (42.0-52.0); Imm Gran Abs Auto 0.02 X10*3/uL (0.00-0.03); Imm Gran Pct Auto 0.3 % (0.0-0.4); Lymphocytes Absolute Auto 1.3 X10*3/uL (1.2-4.9); Lymphocytes Percent Auto 20.3 % (20-40); Mean Corpuscular HGB Conc 34.5 g/dl (31.0-36.0); Mean Corpuscular Hemoglobin 33.9 pg (27.0-33.0); Mean Corpuscular Volume 98.3 fL (80.0-98.0); Mean Platelet Volume 9.3 fL (9.4-12.4); Monocytes Absolute Auto 0.6 X10*3/uL (0.1-1.2); Neutrophils Percent Auto 64.5 % (45-73); Platelet Count 259 X10*3/uL (160-400); Red Blood Count 4.13 X10*6/uL (4.60-5.80); Red Cell Distribution Width 12.1 % (11.0-16.0); White Blood Count 6.2 X10*3/uL (4.8-10.8)
[2023-12-10 12:15] LABS: Prostate Specific Antigen < 0.10 ng/mL (<0.05-4.0)
[2023-12-10 12:23] LABS: Alanine Aminotransferase 19 U/L (0-40); Albumin Level 4.1 g/dL (3.5-5.0); Alkaline Phosphatase 92 U/L (39-117); Anion Gap 12 (12-20); Aspartate Amino Transferase 22 U/L (5-37); Bilirubin Total 0.5 mg/dL (0.0-1.0); Blood Urea Nitrogen 23 mg/dL (9-16); Calcium 9.5 mg/dL (8.4-10.2); Carbon Dioxide 26 mmol/L (22-29); Chloride 103 mmol/L (96-108); Estimated Glomerular Filt Rate > 60; Glucose Random 105 mg/dL (60-115); Potassium 4.7 mmol/L (3.3-5.1); Sodium 136 mmol/L (135-145); Total Protein 7.4 g/dL (6.5-8.0)
[2023-12-11 18:14] LABS: LDL Cholesterol Direct 110 mg/dL (<100)
[2023-12-16 01:44] LABS: Testosterone, Total 23 ng/dL (250-1100)
== END 2023-12-10 06:03 | disposition home or self-care (01) ==
LOC: HO.HMGCLDS 06:02
PROVIDERS: PCP Internal Medicine; Referring Provider Urology; Visit Provider Internal Medicine
DX: Z12.5 Encounter for screening for malignant neoplasm of prostate (principal); C61 Malignant neoplasm of prostate; M96.1 Postlaminectomy syndrome, not elsewhere classified; J44.9 Chronic obstructive pulmonary disease, unspecified; M25.511 Pain in right shoulder; M25.512 Pain in left shoulder; Z91.09 Other allergy status, other than to drugs and biological substances; R91.1 Solitary pulmonary nodule; K64.9 Unspecified hemorrhoids; M62.838 Other muscle spasm; I10 Essential (primary) hypertension; K21.9 Gastro-esophageal reflux disease without esophagitis; K59.03 Drug induced constipation; Z72.0 Tobacco use
CPT/HCPCS: 36415; 80053; 83721; 84153; 84403; 85025

== ENCOUNTER 2023-12-18 11:43 | Outpatient (AMB) | payer MEDICARE, MEDICAID, SELFPAY ==
--- NOTE | 2023-12-18 11:44 | A.OFFVIS_ITS ---
Intake Intake Visit Reasons: labs follow up (set) Intake Note: Patient is Present for Telephone Follow Up LAB Urology Med: Finasteride Antibiotic Allergy: none Blood Thinner: None Allergies No Known Allergies Allergy (Verified 12/09/23 11:14) HPI HPI Comments History of Present Illness Details Daryn is a pleasant male. He is a patient of Dr. Woods. He is seen for the following urologic conditions - elevated PSA - lower urinary tract symptoms Telemedicine Evaluation 15 min Consultation [employer] attempted 01/03 0.1, T 23 Discussed lab work Recommend 3rd Gn[facility] in 3 months, continue finasteride Does have hot flashes Is on gabapentin 09/01 [facility], finasteride - main concern was proctitis which was r esolving PSA 05/02 0.6 Gn[facility] 03/04/23 with finasteride - MAB during XRT ([facility] bicalutamide + finasteride) Prostate cancer - Grade Group Grade Group 4 - EXBRT with maximum androgen blockade ([facility]) Adenocarcinoma of the prostate (T1c N0 M0, Nelli score 3+5, Grade Group 4, PSA at Diagnosis 5.4) - NCCN high risk group Prostate cancer was diagnosed Dr Flower Diagnosis was reached by - for elevated PSA - 5.4 F 11% - 40cc Date: 12/02 12 Core biopsy Positive Biopsies: 4 Nega tive Biopsies: 8 - (%) Positive: Locations: Left base lateral 3+4 25%, left base medial 3+4 25%, left mid lateral 3+3 5%, left mid medial 3+5 25% TNM Classification of Malignant Tumours (TNM) - T2a Staging Imaging - 12/02 PMSA - metabolically active prostate, question of rib involvement however unlikely - 01/30 prostate MRI - left posterolatera l mid, base 1.5 cm PI-RADS 4 with abutment, no clear evidence of extracapsular extension Associated conditions erectile dysfunction Mild Therapeutic plan: EXBRT with maximum androgen blockade with Dr. Austin at [facility] 7600 grade, 44 fractions Lower urinary tract symptoms Nocturia 2-3 Variable stream Prior medications include tamsulosin, finasteride and terazosin ALEK 1+ prominent medial sulcus Low libido Reports decline in desire Baseline chronic opiate use T 10/01 452 PSA 05/01 5.9, 10/01 5.4 11% PFSH Medical History Colon cancer screening Nocturia Heartburn Muscle spasms of neck Pain management Opioid dependence Hypertension, essential GERD (gastroesophageal reflux disease) Smokers' cough Drug induced constipation COPD (chronic obstructive pulmonary disease) Tobacco abuse Asthma Failed back syndrome Surgical History History of colonoscopy (04/10/10) History of rotator cuff surgery History of repair of laceration History of fusion of cervical spine History of laminectomy Family History Father HTN (hypertension) Lung cancer Mother HTN (hypertension) Dementia Breast cancer Maternal Grandmother No problems noted. Maternal Grandfather No problems noted. Paternal Grandfather No problems noted. Paternal Grandmother No problems noted. Brother Throat cancer Lung cancer Brother No problems noted. Daughter No problems noted. Daughter No problems noted. Sister Ovarian cancer Sister No problems noted. Sister No problems noted. Sister No problems noted. Maternal Aunt Breast cancer Social History Household Members: Family Housing: House Alcohol intake: current Alcohol intake frequency: a few times a week Patient Tobacco Use Status: Current everyday Tobacco user Tobacco use type: Cigarette Cigarette Packs Per Day: 1 Cigarettes Per Day: 20.0 e-Cigarette/Vaping Use: Never Used service: No Current occupational status: disabled Cognitive needs: No Hearing needs: No Vision needs: Yes Review of Systems Const All systems reviewed & are unremarkable except as noted in HPI and below Reports no additional complaints Resp Reports no additional complaints GI Reports no additional complaints Reports as per HPI Musc Reports no additional complaints Physical Exam Telemedicine evaluation Appropriate responses Regular breathing rate and rhythm HEENT Head: Yes normal to inspection Ears: hearing grossly normal bilaterally Eyes General: appearance normal, both eyes and all related structures Neck Neck: Yes normal visual inspection Chest Chest palpation & inspection: normal inspection of the chest Resp Effort & Inspection: normal respiratory effort and able to speak in complete sentences Assessment & Plan Assessment & Plan (1) Prostate cancer: Comment: 12/02 PSA 5.4, high risk [place] 3 + 5, 4 cores Code(s): C61 - Malignant neoplasm of prostate Plan Three-month follow-up lab work and GnRH Orders: Orders Prostate Specific Antigen 3 Months C61 - Malignant neoplasm of prostate Testosterone, Total 3 Months C61 - Malignant neoplasm of prostate Patient Instructions: Imaging studies, laboratory and physical exam results were discussed and review ed in detail. No major barriers to patient understanding were identified. An opportunity to ask questions regarding the treatment plan was provided. All questions were answered. The patient expressed understanding and agreement with the above treatment plan. The patient is aware they should contact our office by phone for worsening of their current condition or the appearance of new urologic symptoms. Compliance is encouraged with any medications and followup testing that is ordered. It is a privilege to participate in the urologic care of your patient. If you have any questions or concerns regarding treatment for the above conditions, or other urologic issues, please do not hesitate to contact me. The office telephone contact is [phone]. This note is constructed using voice recognition software. While every effort has been made to ensure accuracy assurance sourcing manager errors may have been included. Yours sincerely, Dr Samy Flower MD, [facility] - Urology Providers of Expert, Compassionate Care for the Genitourinary System Telehealth Telehealth Location of provider rendering services: practice address Location of patient: address on file Patient Identification confirmed using: Name, : Yes Telehealth method: video Patient verbally consented to treatment: Yes Patient verbally consented to billing insurance company: Yes Patient informed of any privacy concerns related to visit: Yes Coding Level of Care Code Tele Est Pt Level 3 (68106) Diagnoses Prostate cancer C61
== END 2023-12-18 12:27 | disposition home or self-care (01) ==
LOC: HO.HUSH 11:43
PROVIDERS: PCP Internal Medicine; Visit Provider Urology
DX: C61 Malignant neoplasm of prostate (principal)
CPT/HCPCS: 99213

== ENCOUNTER → 2023-12-18 11:43 | Outpatient (BNVA) | payer MEDICARE, MEDICAID, SELFPAY | PROVIDERS: PCP Internal Medicine; Visit Provider Urology ==

== ENCOUNTER 2024-01-09 14:00 | Outpatient (AMB) | payer MEDICARE, MEDICAID, SELFPAY ==
[2024-01-09 14:04] VITALS: BP 118/58; PULSE 72; O2SAT 92; BMI 24.2
--- NOTE | 2024-01-09 14:04 | A.OFFPC_ITS ---
Vital Signs 3 01/09/24 14:04 Height 5 ft 11 in Weight 173 lb 6 oz BMI 24.2 BP 118/58 L Blood Pressure Location Lt brachial Position Sitting Pulse 72 Pulse Source Pulse Oximeter Pulse Oximetry (%) 92 Oxygen Delivery Method Room Air Intake Visit Reasons: 1M F/U per PCP Allergies No Known Allergies Allergy (Verified 01/09/24 14:05) Medication List - Last Reconciled 01/09/24 by Lloyd Woods MD albuterol sulfate 90 mcg/actuation (ProAir HFA) 1 inh inhalation QID PRN 30 days amlodipine 10 mg PO DAILY 90 days Anoro Ellipta 62.5-25 mcg/actuation (umeclidinium-vilanterol) 1 inh inhalation DAILY NS cetirizine 10 mg PO DAILY 90 days cyclobenzaprine 5 mg PO BEDTIME PRN 30 days finasteride 5 mg PO DAILY 90 days gabapentin 600 mg PO BEDTIME 30 days ipratropium-albuterol 0.5 mg-3 mg(2.5 mg base)/3 mL 3 mL inhalation Q6-8H PRN 30 days leuprolide acetate (6 month) (Eligard) 45 mg subcut [id number] lisinopril 40 mg PO DAILY 90 days montelukast 10 mg PO DAILY 90 days omeprazole 20 mg PO DAILY oxycodone 10 mg PO TID 30 days sucralfate (Carafate) 10 mL PO BID 30 days Tobacco use date assessed: 01/09/24 Fall risk assessment: No Falls in past year Last assessed Fall Risk: 01/09/24 Dental Screening Dental Screen Date: 01/09/24 Did you have a dental visit in the last 12 months?: Yes Did you have a dental problem in the last 6 months where you did not have access to dental care?: No Was dental information given to patient?: Patient has dentist HPI 1M F/U per PCP 2 HPI0 Details Patient is a 68-year-old gentleman came in today for his pain medication refill Patient have a failed back syndrome and is currently taking oxycodone 10 mg 3 times a day Patient is aware of side effects and is complying with the treatment plan Patient is going through radiation therapy for prostate cancer, he is complaining of pain in both his legs I would recommend to discuss it further with the oncologist He is on gabapentin 600 mg at night If needed we will add 600 in the morning as well He also injured his left Achilles tendon, 1 month ago when he was running to his car Patient has not seen anybody since, he tells me that he was thinking it will get better On examination today his Achilles tendon is painful to pressure And he has swelling around it We have put an orthopedic boot He will have x-ray done today and need to see orthopedic [facility] Medical History Colon cancer screening Nocturia Heartburn Muscle spasms of neck Pain management Opioid dependence Hypertension, essential GERD (gastroesophageal reflux disease) Smokers' cough Drug induced constipation COPD (chronic obstructive pulmonary disease) Tobacco abuse Asthma Failed back syndrome Surgical History History of colonoscopy (04/10/10) History of rotator cuff surgery History of repair of laceration History of fusion of cervical spine History of laminectomy Family History Father HTN (hypertension) Lung cancer Mother HTN (hypertension) Dementia Breast cancer Maternal Grandmother No problems noted. Maternal Grandfather No problems noted. Paternal Grandfather No problems noted. Paternal Grandmother No problems noted. Brother Throat cancer Lung cancer Brother No problems noted. Daughter No problems noted. Daughter No problems noted. Sister Ovarian cancer Sister No problems noted. Sister No problems noted. Sister No problems noted. Maternal Aunt Breast cancer Social History Household Members: Family Housing: House Alcohol intake: current Alcohol intake frequency: a few times a week Patient Tobacco Use Status: Current everyday Tobacco user Tobacco use type: Cigarette Cigarette Packs Per Day: 1 Cigarettes Per Day: 20.0 e-Cigarette/Vaping Use: Never Used service: No Current occupational status: disabled Cognitive needs: No Hearing needs: No Vision needs: Yes Questionnaire Thrive Questionnaire Date Thrive assessed: 05/02/21 AUDIT C Alcohol Use Questionnaire (AUDIT-C) 1. How often do you have a drink containing alcohol?: Monthly or less 2. How many drinks containing alcohol do you have on a typical day when you are drinking?: 1 or 2 3. How often do you have six or more drinks on one occasion?: Never Total Score: 1 Score Reviewed/Action Taken: Yes Review of Systems Const Denies chills and Denies fever(s) ENT Denies epistaxis and Denies nasal discharge Card Denies chest pain Resp Denies chest congestion and Denies hemoptysis GI Denies diarrhea and Denies nausea Skin/Breast Denies rash Neuro Reports no additional complaints Psych Reports no additional complaints Endo Reports no additional complaints Physical exam (Primary Care) Vital Signs: Last Vital Signs Pulse 72 01/09/24 14:04 BP 118/58 L 01/09/24 14:04 Pulse Ox 92 01/09/24 14:04 Oxygen Delivery Method Room Air 01/09/24 14:04 BMI result Body Mass Index 24.2 Tobacco/Smoking Status: Tobacco use Status Tobacco use date assessed 01/09/24 01/09/24 14:07 Patient Tobacco Use Status Current everyday Tobacco 01/09/24 14:07 Tobacco use type Cigarette 01/09/24 14:07 e-Cigarette/Vaping Use Never Used 01/09/24 14:07 Thrive Assessment: Date of Thrive Assessment Date Thrive assessed 05/02/21 01/09/24 14:07 Const General: cooperative, comfortable and no acute distress Orientation/consciousness: patient oriented x3 HENMT Head: Yes normocephalic Eyes General: appearance normal, both eyes and all related structures Neck Neck: Yes supple Resp Effort & Inspection: normal respiratory effort, no cough and no stridor Cardio Rhythm: regular rhythm Heart sounds: S1 normal heart sound present and S2 normal heart sound present Skin General skin exam: turgor normal Neuro General: patient oriented x3, tone normal and moves all extremities Extrem Right lower extremity: no edema Left lower extremity: no edema Ankle/foot/toe images: 2 1. Tenderness with swelling Assessment and Plan Assessment & Plan (1) Failed back syndrome: Code(s): M96.1 - Postlaminectomy syndrome, not elsewhere classified (2) Opioid dependence: Comment: CONTROLLED NATURE OF MEDICATION WAS DISCUSSED, IT IS IMPORTANT TO NOTIFY ME OF CHANGE OF PHARMACY, OR IF TRAVELING. DO NOT SHARE THE MEDICATION WITH ANYBODY, KEEP IT SAFE AWAY FROM THE HANDS OF SMALL CHILDREN, AND ONLY TAKE IT PRESCRIBED. THIS MEDICATION HAVE A TENDENCY TO BE ABUSED, HABIT-FORMING, AND IT CAN CAUSE SEVERE CONSTIPATION ALONG WITH OTHER ALLERGIC REACTIONS. LONG-TERM USE OF NARCOTIC MEDICATIONS HAVE SHOWN TO INCREASE SENSITIVITY TO PAIN. Code(s): F11.20 - Opioid dependence, uncomplicated Qualifiers: Substance use status: uncomplicated Qualified Code(s): F11.20 - Opioid dependence, uncomplicated (3) Pain management: Code(s): R52 - Pain, unspecified (4) Insertional Achilles tendinopathy: Code(s): M76.60 - Achilles tendinitis, unspecified leg (5) Pain in both lower legs: Code(s): M79.661 - Pain in right lower leg; M79.662 - Pain in left lower leg (6) Prostate cancer: Comment: 12/02 PSA 5.4, high risk [place] 3 + 5, 4 cores Code(s): C61 - Malignant neoplasm of prostate (7) COPD (chronic obstructive pulmonary disease): Code(s): J44.9 - Chronic obstructive pulmonary disease, unspecified Qualifiers: COPD type: emphysema Emphysema type: panlobular Qualified Code(s): J 43.1 - Panlobular emphysema (8) Hypertension, essential: Code(s): I10 - Essential (primary) hypertension (9) Smokers' cough: Code(s): J41.0 - Simple chronic bronchitis Plan Patient is a 68-year-old gentleman came in today for his pain medication refill Patient have a failed back syndrome and is currently taking oxycodone 10 mg 3 times a day Patient is aware of side effects and is complying with the treatment plan He is due for urine drug screen Patient is going through radiation therapy for prostate cancer, he is complaining of pain in both his legs I would recommend to discuss it further with the oncologist He also injured his left Achilles tendon, 1 month ago when he was running to his car Patient has not seen anybody since, he tells me that he was thinking it will get better On examination today his Achilles tendon is painful to pressure And he has swelling around it We have put an orthopedic boot He will have x-ray done today and need to see orthopedic ROHITH Orders: Orders 2 Drug Screen Urine Today F11.20 - Opioid dependence, uncomplicated XR ankle LT 2V Today M76.60 - Achilles tendinitis, unspecified leg Referrals 2 Orthopedics Referral M76.60 - Achilles tendinitis, unspecified leg Medications: Refilled 2 oxycodone partial refill allowed 10 mg PO TID 30 days 90 tabs 0RF pain F11.20 - Opioid dependence, uncomplicated, M96.1 - Postlaminectomy syndrome, not elsewhere classified, R52 - Pain, unspecified gabapentin 600 mg PO BEDTIME 30 days 30 tabs 0RF M96.1 - Postlaminectomy syndrome, not elsewhere classified, R52 - Pain, unspecified cyclobenzaprine 5 mg PO BEDTIME 30 days PRN 30 tabs 0RF muscle spasm M62.838 - Other muscle spasm, R52 - Pain, unspecified Coding Level of Care Code Est Pt Level 5 (53335) Diagnoses Failed back syndrome M96.1 Uncomplicated opioid dependence F11.20 Substance use status: uncomplicated Pain management R52 Insertional Achilles tendinopathy M76.60 Pain in both lower legs M79.661; M79.662 Prostate cancer C61 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
== END 2024-01-09 15:54 | disposition home or self-care (01) ==
PROVIDERS: PCP Internal Medicine; Visit Provider Internal Medicine
DX: J43.1 Panlobular emphysema (principal); F11.20 Opioid dependence, uncomplicated; C61 Malignant neoplasm of prostate; J41.0 Simple chronic bronchitis; M96.1 Postlaminectomy syndrome, not elsewhere classified; R52 Pain, unspecified; M76.60 Achilles tendinitis, unspecified leg; M79.661 Pain in right lower leg; M79.662 Pain in left lower leg; I10 Essential (primary) hypertension
CPT/HCPCS: 99215

== ENCOUNTER 2024-01-09 14:26 | Outpatient (REF) | payer MEDICARE, MEDICAID, SELFPAY ==
--- NOTE | ~2024-01-09 | XR_ITS ---
EXAMINATION: XR ANKLE, LEFT CLINICAL INFORMATION: Achilles tendinitis. COMPARISON: None available. TECHNIQUE: AP, lateral, and mortise views of the left ankle. FINDINGS: There is bimalleolar and posterior distal lower leg soft tissue swelling. The ankle mortise and subtalar joints are normal. No visible acute fracture or dislocation seen. There is calcaneal heel and retrocalcaneal enthesophytes. XR/XR ankle LT 2V IMPRESSION: 1. Bimalleolar and posterior distal lower leg soft tissue swelling. No visible acute fracture or dislocation seen. 2. Small calcaneal heel and retrocalcaneal enthesophytes.
[2024-01-09 18:27] LABS: Amphetamine Screen Urine Not Detected (Not Detect); Barbiturates, Urine Not Detected (Not Detect); Benzodiazepines Screen Urine Not Detected (Not Detect); Cannabinoid Screen Urine Not Detected (Not Detect); Cocaine Screen Urine Not Detected (Not Detect); Fentanyl, urine Not Detected (Not Detect); Opiate Screen Urine Not Detected (Not Detect); Phencyclidine Screen Urine Not Detected (Not Detect)
== END 2024-01-09 14:27 | disposition home or self-care (01) ==
LOC: HO.HMGCX 14:26
PROVIDERS: PCP Internal Medicine; Visit Provider Internal Medicine
DX: M76.60 Achilles tendinitis, unspecified leg (principal); F11.20 Opioid dependence, uncomplicated
CPT/HCPCS: 73600; 80307

== ENCOUNTER 2024-01-28 12:39 | Outpatient (AMB) | payer MEDICARE, MEDICAID, SELFPAY ==
[2024-01-28 12:43] VITALS: BP 130/70; PULSE 81; TEMP 36.6; O2SAT 95; BMI 23.7
--- NOTE | 2024-01-28 12:43 | AM.OFFWIN_ITS ---
Intake Vital Signs 01/28/24 12:43 Height 5 ft 11 in Weight 170 lb BMI 23.7 BP 130/70 Blood Pressure Location Lt brachial Position Sitting Pulse 81 Pulse Source Pulse Oximeter Temp 97.8 F Temp Source Temporal Artery Scan Pulse Oximetry (%) 95 Oxygen Delivery Method Room Air Intake Visit Reasons: EP Congestion Intake Note: pt is here today for congestion started 1 week ago Patient Tobacco Use Status: Current everyday Tobacco user Allergies No Known Allergies Allergy (Verified 01/28/24 12:46) Do you need a note to return to daycare/school/sports/work: No HPI HPI Comments History of Present Illness Details 68 y/o male patient who presents to walk in clinic with c/o SOB, wheezing, cough and chest congestion. Reports that symptoms started Friday and now getting worse. H/o COPD and uses Anoro. Denies fevers, chills, nausea or vomiting. [facility] Medical History Colon cancer screening Nocturia Heartburn Muscle spasms of neck Pain management Opioid dependence Hypertension, essential GERD (gastroesophageal reflux disease) Smokers' cough Drug induced constipation COPD (chronic obstructive pulmonary disease) Tobacco abuse Asthma Failed back syndrome Surgical History History of colonoscopy (04/10/10) History of rotator cuff surgery History of repair of laceration History of fusion of cervical spine History of laminectomy Family History Father HTN (hypertension) Lung cancer Mother HTN (hypertension) Dementia Breast cancer Maternal Grandmother No problems noted. Maternal Grandfather No problems noted. Paternal Grandfather No problems noted. Paternal Grandmother No problems noted. Brother Throat cancer Lung cancer Brother No problems noted. Daughter No problems noted. Daughter No problems noted. Sister Ovarian cancer Sister No problems noted. Sister No problems noted. Sister No problems noted. Maternal Aunt Breast cancer Social History Household Members: Family Housing: House Alcohol intake: current Alcohol intake frequency: a few times a week Patient Tobacco Use Status: Current everyday Tobacco user Tobacco use type: Cigarette Cigarette Packs Per Day: 1 Cigarettes Per Day: 20.0 e-Cigarette/Vaping Use: Never Used service: No Current occupational status: disabled Cognitive needs: No Hearing needs: No Vision needs: Yes Review of Systems Const All systems reviewed & are unremarkable except as noted in HPI and below Physical Exam Vital Signs: Last Vital Signs Temp 97.8 F 01/28/24 12:43 Pulse 81 01/28/24 12:43 BP 130/70 01/28/24 12:43 Pulse Ox 95 01/28/24 12:43 Oxygen Delivery Method Room Air 01/28/24 12:43 BMI result Body Mass Index 23.7 Const General: comfortable and no acute distress Orientation/consciousness: patient oriented x3 HEENT Head: Yes normocephalic Ears: external ears normal and TM's normal bilaterally General nose exam: Abnormal mucous membranes and turbinates present boggy and erythematous Face and sinus: Yes sinuses nontender Mouth: moist mucous membranes Throat: Yes posterior oropharynx normal Resp Effort & Inspection: normal respiratory effort and able to speak in complete sentences Auscultation: no crackles, no rales, rhonchi throughout and wheezes scattered wheezes Cardio Rate: regular rate Rhythm: regular rhythm Neuro General: patient oriented x3 and moves all extremities Psych Speech and movement: Normal speech and movement present Office Procedures Nebulizer Treatment Nebulizer Treatment 38150-Udbowegdr/MDI RX initial, or Nebulizer Subsequent Treatment Office Meds ipratropium 0.5 mg-albuterol 3 mg (2.5 mg base)/3 mL nebulization soln Performing Provider: Radha Joyce NP Performing Location: [facility] [place] Administered by: Radha Joyce NP on 01/28/24 13:08 Dose Route Admin Location Dispensed Lot Number Expiration Date [employer] Coordinator 3 mL inhalation 3 mL [id number] 08/10/24 4117-1978-63 [facility] Assessment & Plan Assessment & Plan (1) Cough: Code(s): R05 - Cough Qualifiers: Cough type: subacute Qualified Code(s): R05.2 - Subacute cough Plan: - Rest and hydrate with warm fluids. - Continue on prescribed Inhalers - Prednisone x 5 days. - Zpack x 3 days - Continue using Home Neb Tx (2) COPD with acute exacerbation: Code(s): J44.1 - Chronic obstructive pulmonary disease with (acute) exacerbation Plan: - Rest and hydrate with warm fluids. - Continue on prescribed Inhalers - Prednisone x 5 days. - Zpack x 3 days - Continue using Home Neb Tx Plan - Rest and hydrate with warm fluids. - Continue on prescribed Inhalers - Prednisone x 5 days. - Zpack x 3 days - Continue using Home Neb Tx Orders: Orders AMB Nebulizer Treatment Today J44.1 - Chronic obstructive pulmonary disease with (acute) exacerbation Medications: New benzonatate 100 mg PO TID 30 caps 0RF R05 - Cough azithromycin 500 mg PO DAILY 3 days 3 tabs 0RF J44.1 - Chronic obstructive pulmonary disease with (acute) exacerbation prednisone 50 mg PO DAILY 5 days 5 tabs 0RF wheezing J44.1 - Chronic obstructive pulmonary disease with (acute) exacerbation Coding Level of Care Code Est Pt Level 3 (42375) Diagnoses Subacute cough R05.2 Cough type: subacute COPD with acute exacerbation J44.1 CPT Codes Nebulizer Treatment - Nebulizer Treatment, initial or subsequent: 90126- Nebulizer/MDI RX initial, or Nebulizer Subsequent Treatment ([id number]) Time Spent (min) 15
== END 2024-01-28 13:36 | disposition home or self-care (01) ==
PROVIDERS: PCP Internal Medicine; Visit Provider Nurse Practitioner Family
DX: R05.2 Subacute cough (principal); J44.1 Chronic obstructive pulmonary disease with (acute) exacerbation
CPT/HCPCS: 94640; 99213; J7620

== ENCOUNTER 2024-01-30 15:09 | Outpatient (REF) | payer MEDICARE, SELFPAY ==
--- NOTE | ~2024-01-30 | CT_ITS ---
EXAMINATION: CT CHEST SCREENING CLINICAL INFORMATION: Personal history of nicotine dependence. Smoked 1 pack per day for 50 years. COMPARISON: 01/13/2023 TECHNIQUE: Multidetector volumetric CT imaging of the chest is performed without contrast using low dose technique. Additional 2D coronal and sagittal reformatted images and axial 3D maximum intensity projection (MIP) images are generated on the CT workstation. This CT examination was performed using dose optimization techniques as appropriate, variously including the following: *Automated exposure control. *Adjustment of mA and/or kV according to patient size (this includes techniques or standardized protocols for targeted exams where dose is matched to indication/reason for exam; i.e. extremities or head). *Use of iterative reconstruction technique. DLP: 43.82 mGy-cm FINDINGS: LUNGS: Mild emphysematous changes are present along with bronchial thickening. Multiple pulmonary nodules are present which are unchanged including a 3 mm lingular nodule (5:277 compare prior 5:347) and a 5 mm right lower lobe nodule (5:280 compare prior 5:339). No new or worrisome pulmonary nodules are seen. MEDIASTINUM: The mediastinum is normal. CORONARY ARTERY CALCIFICATION: Moderate. PLEURA: There is no pleural effusion. No pleural mass or thickening. AXILLA: No lymphadenopathy. UPPER ABDOMEN: Unremarkable. OSSEOUS STRUCTURES: Unremarkable. CT/CT lung screening IMPRESSION: 1. Stable pulmonary nodules, the largest 5 mm. 2. Mild emphysema and bronchial thickening. ASSESSMENT: Lung-RADS Category 2: Benign. RECOMMENDATION: Routine annual low-dose CT screening in 12 months.
== END 2024-01-30 15:10 | disposition home or self-care (01) ==
LOC: HO.CT 15:09
PROVIDERS: PCP Internal Medicine; Visit Provider Internal Medicine Pulmonary Disease
DX: Z12.2 Encounter for screening for malignant neoplasm of respiratory organs (principal); Z87.891 Personal history of nicotine dependence
CPT/HCPCS: 71271

== ENCOUNTER 2024-02-03 10:10 | Outpatient (AMB) | payer MEDICARE, SELFPAY ==
[2024-02-03 10:14] VITALS: BP 126/80; PULSE 71; O2SAT 100; BMI 23.7
--- NOTE | 2024-02-03 10:14 | A.OFFPC_ITS ---
Vital Signs 3 02/03/24 10:14 Height 5 ft 11 in Weight 170 lb 4 oz BMI 23.7 BP 126/80 Blood Pressure Location Lt brachial Position Sitting Pulse 71 Pulse Source Pulse Oximeter Pulse Oximetry (%) 100 Oxygen Delivery Method Room Air Intake Visit Reasons: 2M F/U Meds Allergies No Known Allergies Allergy (Verified 02/03/24 10:15) Medication List - Last Reconciled 02/03/24 by Lloyd Woods MD albuterol sulfate 90 mcg/actuation (ProAir HFA) 1 inh inhalation QID PRN 30 days amlodipine 10 mg PO DAILY 90 days Anoro Ellipta 62.5-25 mcg/actuation (umeclidinium-vilanterol) 1 inh inhalation DAILY NS cetirizine 10 mg PO DAILY 90 days cyclobenzaprine 5 mg PO BEDTIME PRN 30 days finasteride 5 mg PO DAILY 90 days gabapentin 600 mg PO BEDTIME 30 days ipratropium-albuterol 0.5 mg-3 mg(2.5 mg base)/3 mL 3 mL inhalation Q6-8H PRN 30 days leuprolide acetate (6 month) (Eligard) 45 mg subcut [id number] lisinopril 40 mg PO DAILY 90 days montelukast 10 mg PO DAILY 90 days omeprazole 20 mg PO DAILY oxycodone 10 mg PO TID 30 days sucralfate (Carafate) 10 mL PO BID 30 days Tobacco use date assessed: 02/03/24 Fall risk assessment: No Falls in past year Last assessed Fall Risk: 02/03/24 Dental Screening Dental Screen Date: 02/03/24 Did you have a dental visit in the last 12 months?: Yes Did you have a dental problem in the last 6 months where you did not have access to dental care?: No Was dental information given to patient?: Patient has dentist HPI 2M F/U Meds 2 HPI0 Details Patient is a 68-year-old gentleman came in today for his pain medication refill He was seen in walk-in clinic and was prescribed antibiotic for respiratory infection He has finished it, and is wheezing with cough and chest congestion I am giving him another course of azithromycin along with prednisone 20 mg once a day for 5 days for acute bronchitis Patient suffers from COPD secondary to years of smoking Having pain right foot 2nd toe for the past 1 week, on examination I do not see any infection I have placed a referral to [employer] Patient have a failed back syndrome and is currently taking oxycodone 10 mg 3 times a day Patient is aware of side effects and is complying with the treatment plan Due for extended opioid screening with labs next month Patient is going through radiation therapy for prostate cancer [facility] Medical History Colon cancer screening Nocturia Heartburn Muscle spasms of neck Pain management Opioid dependence Hypertension, essential GERD (gastroesophageal reflux disease) Smokers' cough Drug induced constipation COPD (chronic obstructive pulmonary disease) Tobacco abuse Asthma Failed back syndrome Surgical History History of colonoscopy (04/10/10) History of rotator cuff surgery History of repair of laceration History of fusion of cervical spine History of laminectomy Family History Father HTN (hypertension) Lung cancer Mother HTN (hypertension) Dementia Breast cancer Maternal Grandmother No problems noted. Maternal Grandfather No problems noted. Paternal Grandfather No problems noted. Paternal Grandmother No problems noted. Brother Throat cancer Lung cancer Brother No problems noted. Daughter No problems noted. Daughter No problems noted. Sister Ovarian cancer Sister No problems noted. Sister No problems noted. Sister No problems noted. Maternal Aunt Breast cancer Social History Household Members: Family Housing: House Alcohol intake: current Alcohol intake frequency: a few times a week Patient Tobacco Use Status: Current everyday Tobacco user Tobacco use type: Cigarette Cigarette Packs Per Day: 1 Cigarettes Per Day: 20.0 e-Cigarette/Vaping Use: Never Used service: No Current occupational status: disabled Cognitive needs: No Hearing needs: No Vision needs: Yes Questionnaire Thrive Questionnaire Date Thrive assessed: 05/02/21 Review of Systems Const Denies chills and Denies fever(s) ENT Denies epistaxis and Denies nasal discharge Card Denies chest pain Resp Denies hemoptysis GI Denies diarrhea and Denies nausea Skin/Breast Denies rash Neuro Reports no additional complaints Psych Reports no additional complaints Endo Reports no additional complaints Physical exam (Primary Care) Vital Signs: Last Vital Signs Pulse 71 02/03/24 10:14 BP 126/80 02/03/24 10:14 Pulse Ox 100 02/03/24 10:14 Oxygen Delivery Method Room Air 02/03/24 10:14 BMI result Body Mass Index 23.7 Tobacco/Smoking Status: Tobacco use Status Tobacco use date assessed 02/03/24 02/03/24 10:19 Patient Tobacco Use Status Current everyday Tobacco 02/03/24 10:19 Tobacco use type Cigarette 02/03/24 10:19 e-Cigarette/Vaping Use Never Used 02/03/24 10:19 Thrive Assessment: Date of Thrive Assessment Date Thrive assessed 05/02/21 02/03/24 10:19 Const General: cooperative, comfortable and no acute distress Orientation/consciousness: patient oriented x3 HENMT Head: Yes normocephalic Eyes General: appearance normal, both eyes and all related structures Neck Neck: Yes supple Resp Other: Wheezing bilateral Effort & Inspection: normal respiratory effort and no stridor Cardio Rhythm: regular rhythm Heart sounds: S1 normal heart sound present and S2 normal heart sound present Skin General skin exam: turgor normal Neuro General: patient oriented x3, tone normal and moves all extremities Extrem Right lower extremity: no edema Left lower extremity: no edema Ankle/foot/toe images: 2 1. Side pain but no infection Assessment and Plan Assessment & Plan (1) Acute bronchitis: Code(s): J20.9 - Acute bronchitis, unspecified Qualifiers: Bronchitis organism: other organism Qualified Code(s): J20.8 - Acute bronchitis due to other specified organisms (2) COPD (chronic obstructive pulmonary disease): Code(s): J44.9 - Chronic obstructive pulmonary disease, unspecified Qualifiers: COPD type: emphysema Emphysema type: panlobular Qualified Code(s): J 43.1 - Panlobular emphysema (3) Pain management: Code(s): R52 - Pain, unspecified (4) Opioid dependence: Comment: CONTROLLED NATURE OF MEDICATION WAS DISCUSSED, IT IS IMPORTANT TO NOTIFY ME OF CHANGE OF PHARMACY, OR IF TRAVELING. DO NOT SHARE THE MEDICATION WITH ANYBODY, KEEP IT SAFE AWAY FROM THE HANDS OF SMALL CHILDREN, AND ONLY TAKE IT PRESCRIBED. THIS MEDICATION HAVE A TENDENCY TO BE ABUSED, HABIT-FORMING, AND IT CAN CAUSE SEVERE CONSTIPATION ALONG WITH OTHER ALLERGIC REACTIONS. LONG-TERM USE OF NARCOTIC MEDICATIONS HAVE SHOWN TO INCREASE SENSITIVITY TO PAIN. Code(s): F11.20 - Opioid dependence, uncomplicated Qualifiers: Substance use status: uncomplicated Qualified Code(s): F11.20 - Opioid dependence, uncomplicated (5) Hypertension, essential: Code(s): I10 - Essential (primary) hypertension (6) GERD (gastroesophageal reflux disease): Code(s): K21.9 - Gastro-esophageal reflux disease without esophagitis Qualifiers: Esophagitis presence: without esophagitis Qualified Code(s): K21.9 - Gastro-esophageal reflux disease without esophagitis (7) Failed back syndrome: Code(s): M96.1 - Postlaminectomy syndrome, not elsewhere classified (8) Toe pain, right: Code(s): M79.674 - Pain in right toe(s) Plan Patient is a 68-year-old gentleman came in today for his pain medication refill He was seen in walk-in clinic and was prescribed antibiotic for respiratory infection He has finished it, and is wheezing with cough and chest congestion I am giving him another course of azithromycin along with prednisone 20 mg once a day for 5 days for acute bronchitis Patient suffers from COPD secondary to years of smoking Having pain right foot 2nd toe for the past 1 week, on examination I do not see any infection I have placed a referral to [employer] Patient have a failed back syndrome and is currently taking oxycodone 10 mg 3 times a day Patient is aware of side effects and is complying with the treatment plan Due for extended opioid screening with labs next month Patient is going through radiation therapy for prostate cancer GERD is stable, blood pressure is controlled Orders: Orders 2 Complete Blood Count Auto Diff Today F11.20 - Opioid dependence, uncomplicated, I10 - Essential (primary) hypertension, J44.9 - Chronic obstructive pulmonary disease, unspecified, K21.9 - Gastro-esophageal reflux disease without esophagitis, M96.1 - Postlaminectomy syndrome, not elsewhere classified, R52 - Pain, unspecified Opiates GCMS Expanded, Ur Today F11.20 - Opioid dependence, uncomplicated, I10 - Essential (primary) hypertension, J44.9 - Chronic obstructive pulmonary disease, unspecified, K21.9 - Gastro-esophageal reflux disease without esophagitis, M96.1 - Postlaminectomy syndrome, not elsewhere classified, R52 - Pain, unspecified Comprehensive Met. Panel Today F11.20 - Opioid dependence, uncomplicated, I10 - Essential (primary) hypertension, J44.9 - Chronic obstructive pulmonary disease, unspecified, K21.9 - Gastro-esophageal reflux disease without esophagitis, M96.1 - Postlaminectomy syndrome, not elsewhere classified, R52 - Pain, unspecified Referrals 2 Podiatry Referral M79.674 - Pain in right toe(s) Medications: New 2 prednisone 20 mg PO DAILY 5 tabs 0RF 5 days azithromycin Take 2 tablets today then 1 daily 250 mg PO ONCE 6 tabs 0RF 5 days J06.9 - Acute upper respiratory infection, unspecified Refilled 2 oxycodone partial refill allowed 10 mg PO TID 90 tabs 0RF pain 30 days F11.20 - Opioid dependence, uncomplicated, M96.1 - Postlaminectomy syndrome, not elsewhere classified, R52 - Pain, unspecified gabapentin 600 mg PO BEDTIME 30 tabs 0RF 30 days M96.1 - Postlaminectomy syndrome, not elsewhere classified, R52 - Pain, unspecified cyclobenzaprine 5 mg PO BEDTIME PRN 30 tabs 0RF muscle spasm 30 days M62.838 - Other muscle spasm, R52 - Pain, unspecified Coding Level of Care Code Est Pt Level 4 (35666) Diagnoses Acute bronchitis due to other specified organisms J20.8 Bronchitis organism: other organism Panlobular emphysema J43.1 COPD type: emphysema Emphysema type: panlobular Pain management R52 Uncomplicated opioid dependence F11.20 Substance use status: uncomplicated Hypertension, essential I10 Gastroesophageal reflux disease without esophagitis K21.9 Esophagitis presence: without esophagitis Failed back syndrome M96.1 Toe pain, right M79.674
== END 2024-02-03 10:42 | disposition home or self-care (01) ==
PROVIDERS: PCP Internal Medicine; Visit Provider Internal Medicine
DX: J20.8 Acute bronchitis due to other specified organisms (principal); J43.1 Panlobular emphysema; F11.20 Opioid dependence, uncomplicated; M79.674 Pain in right toe(s); I10 Essential (primary) hypertension; K21.9 Gastro-esophageal reflux disease without esophagitis; M96.1 Postlaminectomy syndrome, not elsewhere classified
CPT/HCPCS: 99214

== ENCOUNTER 2024-02-18 12:16 | Outpatient (AMB) | payer MEDICARE, SELFPAY ==
--- NOTE | 2024-02-18 12:17 | A.OFFPC_ITS ---
Vital Signs 02/18/24 12:19 Height 5 ft 11 in Weight 169 lb 2 oz BMI 23.6 BP 138/64 Blood Pressure Location Lt brachial Position Sitting Pulse 74 Pulse Source Pulse Oximeter Pulse Oximetry (%) 95 Oxygen Delivery Method Room Air Intake Visit Reasons: dizzy Allergies No Known Allergies Allergy (Verified 02/18/24 12:21) Medication List - Last Reconciled 02/18/24 by Lloyd Woods MD albuterol sulfate 90 mcg/actuation (ProAir HFA) 1 inh inhalation QID PRN 30 days amlodipine 10 mg PO DAILY 90 days Anoro Ellipta 62.5-25 mcg/actuation (umeclidinium-vilanterol) 1 inh inhalation DAILY NS cetirizine 10 mg PO DAILY 90 days cyclobenzaprine 5 mg PO BEDTIME PRN 30 days finasteride 5 mg PO DAILY 90 days gabapentin 600 mg PO BEDTIME 30 days ipratropium-albuterol 0.5 mg-3 mg(2.5 mg base)/3 mL 3 mL inhalation Q6-8H PRN 30 days leuprolide acetate (6 month) (Eligard) 45 mg subcut [id number] lisinopril 40 mg PO DAILY 90 days montelukast 10 mg PO DAILY 90 days omeprazole 20 mg PO DAILY oxycodone 10 mg PO TID 30 days sucralfate (Carafate) 10 mL PO BID 30 days Tobacco use date assessed: 02/18/24 Fall risk assessment: No Falls in past year Last assessed Fall Risk: 02/18/24 Dental Screening Dental Screen Date: 02/18/24 Did you have a dental visit in the last 12 months?: Yes Did you have a dental problem in the last 6 months where you did not have access to dental care?: No Was dental information given to patient?: Patient has dentist HPI dizzy HPI Details Patient came in today as he felt dizzy a week ago and then again 2 days ago Patient says that he felt as if he is going to have a stroke as the feeling was so uncomfortable It lasted 1 minute and then it was resolved Does have allergies and he has started taking long-acting antihistamine recently On examination his ears does not show any signs of inflammation Hallpike maneuver triggers dizziness but mild without any nystagmus He has no neurological deficit Patient was reassured I would recommend meclizine [id number] if it started happening again However if it got worse and prolonged patient should go to emergency room [facility] Medical History Colon cancer screening Nocturia Heartburn Muscle spasms of neck Pain management Opioid dependence Hypertension, essential GERD (gastroesophageal reflux disease) Smokers' cough Drug induced constipation COPD (chronic obstructive pulmonary disease) Tobacco abuse Asthma Failed back syndrome Surgical History History of colonoscopy (04/10/10) History of rotator cuff surgery History of repair of laceration History of fusion of cervical spine History of laminectomy Family History Father HTN (hypertension) Lung cancer Mother HTN (hypertension) Dementia Breast cancer Maternal Grandmother No problems noted. Maternal Grandfather No problems noted. Paternal Grandfather No problems noted. Paternal Grandmother No problems noted. Brother Throat cancer Lung cancer Brother No problems noted. Daughter No problems noted. Daughter No problems noted. Sister Ovarian cancer Sister No problems noted. Sister No problems noted. Sister No problems noted. Maternal Aunt Breast cancer Social History Household Members: Family Housing: House Alcohol intake: current Alcohol intake frequency: a few times a week Patient Tobacco Use Status: Current everyday Tobacco user Tobacco use type: Cigarette Cigarette Packs Per Day: 1 Cigarettes Per Day: 20.0 e-Cigarette/Vaping Use: Never Used service: No Current occupational status: disabled Cognitive needs: No Hearing needs: No Vision needs: Yes Questionnaire Thrive Questionnaire Date Thrive assessed: 05/02/21 AUDIT C Alcohol Use Questionnaire (AUDIT-C) 1. How often do you have a drink containing alcohol?: Monthly or less 2. How many drinks containing alcohol do you have on a typical day when you are drinking?: 1 or 2 3. How often do you have six or more drinks on one occasion?: Never Total Score: 1 Score Reviewed/Action Taken: Yes Review of Systems Const Denies chills and Denies fever(s) ENT Denies epistaxis and Denies nasal discharge Card Denies chest pain Resp Denies chest congestion, Denies cough and Denies hemoptysis GI Denies diarrhea and Denies nausea Skin/Breast Denies rash Neuro Reports no additional complaints Psych Reports no additional complaints Endo Reports no additional complaints Physical exam (Primary Care) Vital Signs: Last Vital Signs Pulse 74 02/18/24 12:19 BP 138/64 02/18/24 12:19 Pulse Ox 95 02/18/24 12:19 Oxygen Delivery Method Room Air 02/18/24 12:19 BMI result Body Mass Index 23.6 Tobacco/Smoking Status: Tobacco use Status Tobacco use date assessed 02/18/24 02/18/24 12:24 Patient Tobacco Use Status Current everyday Tobacco 02/18/24 12:19 Tobacco use type Cigarette 02/18/24 12:19 e-Cigarette/Vaping Use Never Used 02/18/24 12:19 Thrive Assessment: Date of Thrive Assessment Date Thrive assessed 05/02/21 02/18/24 12:19 Const General: cooperative, comfortable and no acute distress Orientation/consciousness: patient oriented x3 HENMT Head: Yes normocephalic Eyes General: appearance normal, both eyes and all related structures Neck Neck: Yes supple Resp Effort & Inspection: normal respiratory effort, no cough and no stridor Cardio Rhythm: regular rhythm Heart sounds: S1 normal heart sound present and S2 normal heart sound present Skin General skin exam: turgor normal Neuro Other: Hallpike maneuver mildly positive without nystagmus General: patient oriented x3, tone normal and moves all extremities Extrem Right lower extremity: no edema Left lower extremity: no edema Assessment and Plan Assessment & Plan (1) Vertigo: Code(s): R42 - Dizziness and giddiness Plan Patient came in today as he felt dizzy a week ago and then again 2 days ago Patient says that he felt as if he is going to have a stroke as the feeling was so uncomfortable It lasted 1 minute and then it was resolved Does have allergies and he has started taking long-acting antihistamine recently On examination his ears does not show any signs of inflammation Hallpike maneuver triggers dizziness but mild without any nystagmus He has no neurological deficit Patient was reassured I would recommend meclizine [id number] if it started happening again However if it got worse and prolonged patient should go to emergency room Orders: Orders TSH reflex Free T4 Today I10 - Essential (primary) hypertension, J41.8 - Mixed simple and mucopurulent chronic bronchitis, R42 - Dizziness and giddiness Complete Blood Count Auto Diff Today I10 - Essential (primary) hypertension, J41.8 - Mixed simple and mucopurulent chronic bronchitis, R42 - Dizziness and giddiness Comprehensive [place]. Panel Fast Today I10 - Essential (primary) hypertension, J41.8 - Mixed simple and mucopurulent chronic bronchitis, R42 - Dizziness and giddiness Lipid Panel Today I10 - Essential (primary) hypertension, J41.8 - Mixed simple and mucopurulent chronic bronchitis, R42 - Dizziness and giddiness Coding Level of Care Code Est Pt Level 3 (52202) Diagnoses Vertigo R42
[2024-02-18 12:19] VITALS: BP 138/64; PULSE 74; O2SAT 95; BMI 23.6
== END 2024-02-18 13:41 | disposition home or self-care (01) ==
PROVIDERS: PCP Internal Medicine; Visit Provider Internal Medicine
DX: R42 Dizziness and giddiness (principal)
CPT/HCPCS: 99213

== ENCOUNTER 2024-02-21 06:32 | Outpatient (REF) | payer MEDICARE, SELFPAY ==
[2024-02-21 11:33] LABS: MANUAL DIFF FLAG NO
[2024-02-21 11:37] LABS: Basophils Percent Auto 0.6 % (0-2); Eosinophils Absolute Auto 0.3 X10*3/uL (0.0-0.4); Eosinophils Percent Auto 4.4 % (0-4); Hematocrit 39.2 % (42.0-52.0); Hemoglobin 13.9 g/dl (14.0-18.0); Imm Gran Abs Auto 0.02 X10*3/uL (0.00-0.03); Imm Gran Pct Auto 0.3 % (0.0-0.4); Lymphocytes Absolute Auto 1.1 X10*3/uL (1.2-4.9); Lymphocytes Percent Auto 17.4 % (20-40); Mean Corpuscular HGB Conc 35.5 g/dl (31.0-36.0); Mean Corpuscular Hemoglobin 33.9 pg (27.0-33.0); Mean Corpuscular Volume 95.6 fL (80.0-98.0); Mean Platelet Volume 9.4 fL (9.4-12.4); Monocytes Absolute Auto 0.4 X10*3/uL (0.1-1.2); Monocytes Percent Auto 6.8 % (2-11); Neutrophils Absolute Auto 4.4 x10*3/uL (2.0-8.3); Neutrophils Percent Auto 70.5 % (45-73); Platelet Count 285 X10*3/uL (160-400); Red Cell Distribution Width 12.2 % (11.0-16.0); White Blood Count 6.2 X10*3/uL (4.8-10.8)
[2024-02-21 12:00] LABS: Alanine Aminotransferase 17 U/L (0-40); Alkaline Phosphatase 81 U/L (39-117); Anion Gap 12 (12-20); Aspartate Amino Transferase 19 U/L (5-37); Bilirubin Total 0.3 mg/dL (0.0-1.0); Blood Urea Nitrogen 27 mg/dL (9-16); Calcium 9.7 mg/dL (8.4-10.2); Carbon Dioxide 24 mmol/L (22-29); Chloride 106 mmol/L (96-108); Cholesterol 214 mg/dL (<200); Estimated Glomerular Filt Rate > 60; Glucose Fasting 104 mg/dL (60-99); HDL Cholesterol 93 mg/dL (>40); LDL Cholesterol Calculated 109 mg/dL (<100); Potassium 4.4 mmol/L (3.3-5.1); Sodium 138 mmol/L (135-145); Total Protein 7.1 g/dL (6.5-8.0); Triglycerides 62 mg/dL (<150)
[2024-02-21 12:14] LABS: Prostate Specific Antigen < 0.10 ng/mL (<0.05-4.0)
[2024-02-21 12:16] LABS: TSH reflex Free T4 0.44 uIU/mL (0.32-4.0)
[2024-02-26 10:03] LABS: Testosterone, Total 21 ng/dL (250-1100)
== END 2024-02-21 06:33 | disposition home or self-care (01) ==
LOC: HO.HMGCLDS 06:32
PROVIDERS: PCP Internal Medicine; Referring Provider Urology; Visit Provider Internal Medicine
DX: C61 Malignant neoplasm of prostate (principal); R42 Dizziness and giddiness; J41.8 Mixed simple and mucopurulent chronic bronchitis; I10 Essential (primary) hypertension; Z12.5 Encounter for screening for malignant neoplasm of prostate
CPT/HCPCS: 36415; 80053; 80061; 84153; 84403; 84443; 85025

== ENCOUNTER 2024-03-03 09:39 | Outpatient (AMB) | payer MEDICARE, MEDICAID, SELFPAY ==
--- NOTE | 2024-03-03 09:44 | MHC.PC.OV ---
Vital Signs 03/03/24 09:45 Height 5 ft 11 in Weight 169 lb 2 oz BMI 23.6 BP 130/62 Blood Pressure Location Rt brachial Position Sitting Pulse 64 Pulse Source Pulse Oximeter Pulse Oximetry (%) 94 Oxygen Delivery Method Room Air Intake Visit Reasons: 3M F/U Meds Allergies No Known Allergies Allergy (Verified 03/03/24 09:45) Medication List - Last Reconciled 03/03/24 by Lloyd Woods MD albuterol sulfate 90 mcg/actuation (ProAir HFA) 1 inh inhalation QID PRN 30 days amlodipine 10 mg PO DAILY 90 days Anoro Ellipta 62.5-25 mcg/actuation (umeclidinium-vilanterol) 1 inh inhalation DAILY NS cetirizine 10 mg PO DAILY 90 days cyclobenzaprine 5 mg PO BEDTIME PRN 30 days finasteride 5 mg PO DAILY 90 days ipratropium-albuterol 0.5 mg-3 mg(2.5 mg base)/3 mL 3 mL inhalation Q6-8H PRN 30 days leuprolide acetate (6 month) (Eligard) 45 mg subcut [id number] lisinopril 40 mg PO DAILY 90 days montelukast 10 mg PO DAILY 90 days omeprazole 20 mg PO DAILY oxycodone 10 mg PO TID 30 days sucralfate (Carafate) 10 mL PO BID 30 days Tobacco use date assessed: 03/03/24 Fall risk assessment: No Falls in past year Last assessed Fall Risk: 03/03/24 Dental Screening Dental Screen Date: 03/03/24 Did you have a dental visit in the last 12 months?: Yes Did you have a dental problem in the last 6 months where you did not have access to dental care?: No Was dental information given to patient?: Patient has dentist HPI 3M F/U Meds HPI Details Patient came in today to be evaluated for dizziness He says that he is feeling much better he has not taken any meclizine I have also noticed that he had labs done through Urology His testosterone level is 21, he will discuss it with Urology He is also low in vitamin-D I have sent supplement He is not due for his pain medication till 8th of next month Patient will let me know when he is due so we can send it, we will skip the month of March visit He will return 11 of April so we can start feeling his medications on time early in the month Blood pressure is stable [facility] Medical History Colon cancer screening Nocturia Heartburn Muscle spasms of neck Pain management Opioid dependence Hypertension, essential GERD (gastroesophageal reflux disease) Smokers' cough Drug induced constipation COPD (chronic obstructive pulmonary disease) Tobacco abuse Asthma Failed back syndrome Surgical History History of colonoscopy (04/10/10) History of rotator cuff surgery History of repair of laceration History of fusion of cervical spine History of laminectomy Family History Father HTN (hypertension) Lung cancer Mother HTN (hypertension) Dementia Breast cancer Maternal Grandmother No problems noted. Maternal Grandfather No problems noted. Paternal Grandfather No problems noted. Paternal Grandmother No problems noted. Brother Throat cancer Lung cancer Brother No problems noted. Daughter No problems noted. Daughter No problems noted. Sister Ovarian cancer Sister No problems noted. Sister No problems noted. Sister No problems noted. Maternal Aunt Breast cancer Social History Household Members: Family Housing: House Alcohol intake: current Alcohol intake frequency: a few times a week Patient Tobacco Use Status: Current everyday Tobacco user Tobacco use type: Cigarette Cigarette Packs Per Day: 1 Cigarettes Per Day: 20.0 e-Cigarette/Vaping Use: Never Used service: No Current occupational status: disabled Cognitive needs: No Hearing needs: No Vision needs: Yes Questionnaire PHQ-9 Over the last 2 weeks, how often have you been bothered by any of the following problems? 1. Little interest or pleasure in doing things: not at all 2. Feeling down, depressed, or hopeless: not at all 3. Trouble falling or staying asleep, or sleeping too much: not at all 4. Feeling tired or having little energy: not at all 5. Poor appetite or overeating: not at all 6. Feeling bad about yourself - or that you are a failure or have let yourself or your family down: not at all 7. Trouble concentrating on things, such as reading the newspaper or watching television: not at all 8. Moving or speaking so slowly that other people could have noticed. Or the opposite - being so fidgety or restless that you have been moving around a lot more than usual: not at all 9. Thoughts that you would be better off or of hurting yourself in some way: not at all Total score: 0 Depression Screening Interpretation: Negative Depression Screening Done: Yes 70931 - PHQ-9 Billing: Yes Source: Developed by Drs. Juan Motley, Blanca Manzo, Kelton Mooney and colleagues, with an educational homa from [address]. Thrive Questionnaire Date Thrive assessed: 03/03/24 I am a: Patient What is your living situation today?: I have a steady place to live Within the past 12 months, did the food you bought not last and you didn't have the money to get more?: Never true Within the past 12 months, did you worry whether your food would run out before you got money to buy more?: Never true Do you have trouble paying for medicines?: No Do you have trouble getting transportation to medical appointments?: No Do you have trouble paying your heating and electricity bill?: No Do you have trouble taking care of your child, family member or friend?: No Do you have trouble with day-to-day activities such as bathing, preparing meals, shopping, managing finances, etc.?: No Are you currently unemployed and looking for a job?: No Are you interested in more education?: No Please select the resources that you would like help with: None Currently or been in a relationship where the following occur: no concerns reported THRIVE Score: 0 AUDIT C Alcohol Use Questionnaire (AUDIT-C) 1. How often do you have a drink containing alcohol?: Monthly or less 2. How many drinks containing alcohol do you have on a typical day when you are drinking?: 1 or 2 3. How often do you have six or more drinks on one occasion?: Never Total Score: 1 Score Reviewed/Action Taken: Yes VIVIANA-7 AMB Questionnaire VIVIANA-7 Date VIVIANA - 7 assessed: 03/03/24 Feeling nervous, anxious, or on edge: 0 = Not at all Not being able to stop or control worryin = Not at all Worrying too much about different things: 0 = Not at all Trouble relaxin = Not at all Being so restless that it is hard to sit still: 0 = Not at all Becoming easily annoyed or irritable: 0 = Not at all Feeling afraid as if something awful might happen: 0 = Not at all Total VIVIANA-7 score (0-4 normal; 5-9 mild; 10-14 moderate; 15-21 severe): 0 Source: Developed by Drs. Juan Motley, Blanca Manzo, Kelton Mooney and colleagues, with an educational homa from [address]. VIVIANA-7 Assessment Billing VIVIANA-7 Assessment Tool: VIVIANA-7 Assessment 12398 Review of Systems Const Denies chills and Denies fever(s) ENT Denies epistaxis and Denies nasal discharge Card Denies chest pain Resp Denies chest congestion and Denies hemoptysis GI Denies diarrhea and Denies nausea Skin/Breast Denies rash Neuro Reports no additional complaints Psych Reports no additional complaints Endo Reports no additional complaints Physical exam (Primary Care) Vital Signs: Last Vital Signs Pulse 64 03/03/24 09:45 BP 130/62 03/03/24 09:45 Pulse Ox 94 03/03/24 09:45 Oxygen Delivery Method Room Air 03/03/24 09:45 BMI result Body Mass Index 23.6 Tobacco/Smoking Status: Tobacco use Status Tobacco use date assessed 03/03/24 03/03/24 09:47 Patient Tobacco Use Status Current everyday Tobacco 03/03/24 09:47 Tobacco use type Cigarette 03/03/24 09:47 e-Cigarette/Vaping Use Never Used 03/03/24 09:47 PHQ-9: PHQ-9 Score PHQ-9: Total score 0 03/03/24 10:05 Depression Screening Interpretation: Negative Thrive Assessment: Date of Thrive Assessment Date Thrive assessed 03/03/24 03/03/24 09:47 Currently or been in a relationship where the following occur: no concerns reported Const General: cooperative, comfortable and no acute distress Orientation/consciousness: patient oriented x3 HENMT Head: Yes normocephalic Eyes General: appearance normal, both eyes and all related structures Neck Neck: Yes supple Resp Effort & Inspection: normal respiratory effort, no cough and no stridor Cardio Rhythm: regular rhythm Heart sounds: S1 normal heart sound present and S2 normal heart sound present Skin General skin exam: turgor normal Neuro General: patient oriented x3, tone normal and moves all extremities Extrem Right lower extremity: no edema Left lower extremity: no edema Assessment and Plan Assessment & Plan (1) Vertigo: Code(s): R42 - Dizziness and giddiness (2) Low testosterone in male: Code(s): R79.89 - Other specified abnormal findings of blood chemistry (3) Vitamin D deficiency: Code(s): E55.9 - Vitamin D deficiency, unspecified Plan Patient came in today to be evaluated for dizziness He says that he is feeling much better he has not taken any meclizine I have also noticed that he had labs done through Urology His testosterone level is 21, he will discuss it with Urology He is also low in vitamin-D I have sent supplement He is not due for his pain medication till of next month Patient will let me know when he is due so we can send it, we will skip the month of March visit He will return 11 of April so we can start feeling his medications on time early in the month Blood pressure is stable Medications: New cholecalciferol (vitamin D3) 25 mcg PO DAILY 90 caps 1RF 90 days gabapentin 2 at night and 1 in the morning 90 caps 0RF 30 days Discontinued gabapentin Discontinued Reason: Doctor's Order 600 mg PO BEDTIME 30 days 30 tabs 0RF M96.1 - Postlaminectomy syndrome, not elsewhere classified, R52 - Pain, unspecified Coding Level of Care Code Est Pt Level 3 (56280) Diagnoses Vertigo R42 Low testosterone in male R79.89 Vitamin D deficiency E55.9 Additional Codes VIVIANA-7 Assessment Billing - VIVIANA-7 Assessment Tool: VIVIANA-7 Assessment 17301 ([id number])
[2024-03-03 09:45] VITALS: BP 130/62; PULSE 64; O2SAT 94; BMI 23.6
== END 2024-03-03 13:29 | disposition home or self-care (01) ==
PROVIDERS: PCP Internal Medicine; Visit Provider Internal Medicine
DX: R42 Dizziness and giddiness (principal); R79.89 Other specified abnormal findings of blood chemistry; E55.9 Vitamin D deficiency, unspecified
CPT/HCPCS: 99213

== ENCOUNTER 2024-03-05 15:36 | Outpatient (AMB) | payer MEDICARE, SELFPAY ==
[2024-03-05 15:39] VITALS: BP 102/62; PULSE 72; O2SAT 93; BMI 23.2
--- NOTE | 2024-03-05 15:39 | MHC.OFFVIS ---
Vital Signs 03/05/24 15:39 Height 5 ft 11 in Weight 166 lb 7.184 oz BMI 23.2 BP 102/62 Blood Pressure Location Lt brachial Position Sitting Pulse 72 Pulse Source Doppler Pulse Oximetry (%) 93 Oxygen Delivery Method Room Air Intake Visit Reasons: COPD Allergies No Known Allergies Allergy (Verified 03/03/24 09:45) HPI HPI COPD: Details: 68-year-old gentleman, active 50+ pack-year smoker, now followed for emphysema and pulmonary nodules.? He continues on Anoro and albuterol MDI with reasonable control of his symptoms.? He denies any recent exacerbations. He has has baseline cough with no significant changes. He did completed his follow-up CT chest that shows 5 mm and under bilateral stable pulmonary nodules. [facility] Medical History Colon cancer screening Nocturia Heartburn Muscle spasms of neck Pain management Opioid dependence Hypertension, essential GERD (gastroesophageal reflux disease) Smokers' cough Drug induced constipation COPD (chronic obstructive pulmonary disease) Tobacco abuse Asthma Failed back syndrome Surgical History History of colonoscopy (04/10/10) History of rotator cuff surgery History of repair of laceration History of fusion of cervical spine History of laminectomy Family History Father HTN (hypertension) Lung cancer Mother HTN (hypertension) Dementia Breast cancer Maternal Grandmother No problems noted. Maternal Grandfather No problems noted. Paternal Grandfather No problems noted. Paternal Grandmother No problems noted. Brother Throat cancer Lung cancer Brother No problems noted. Daughter No problems noted. Daughter No problems noted. Sister Ovarian cancer Sister No problems noted. Sister No problems noted. Sister No problems noted. Maternal Aunt Breast cancer Social History Household Members: Family Housing: House Alcohol intake: current Alcohol intake frequency: a few times a week Patient Tobacco Use Status: Current everyday Tobacco user Tobacco use type: Cigarette Cigarette Packs Per Day: 1 Cigarettes Per Day: 20.0 e-Cigarette/Vaping Use: Never Used service: No Current occupational status: disabled Cognitive needs: No Hearing needs: No Vision needs: Yes Physical Exam Vital Signs: Last Vital Signs Pulse 72 03/05/24 15:39 BP 102/62 03/05/24 15:39 Pulse Ox 93 03/05/24 15:39 Oxygen Delivery Method Room Air 03/05/24 15:39 BMI result Body Mass Index 23.2 Const General: no acute distress, alert and awake Eyes Sclerae: sclerae normal EOM: EOMs intact bilaterally Neck Neck: Yes no lymphadenopathy, Yes trachea midline and Yes supple Resp Effort & Inspection: normal respiratory effort and no respiratory distress Auscultation: clear to auscultation bilaterally Cardio Rate: regular rate Rhythm: regular rhythm Heart sounds: no gallops, no murmurs and no rubs GI Palpation (GI): Soft to palpation and Other GI palpation findings present ( Nontender) Auscultation: normal bowel sounds Extrem General: Yes no pedal edema, No clubbing and No cyanosis Assessment & Plan Assessment & Plan (1) COPD (chronic obstructive pulmonary disease): Code(s): J44.9 - Chronic obstructive pulmonary disease, unspecified Category: Medical Qualifiers: COPD type: emphysema Emphysema type: panlobular Qualified Code(s): J43.1 - Panlobular emphysema Plan: Well controlled on current regimen of Anoro, duo nebs, and albuterol MDI. Continue current regimen. (2) Personal history of nicotine dependence: Code(s): Z87.891 - Personal history of nicotine dependence Category: Medical Plan: Results of CT chest reviewed, stable bilateral 5 mm and under pulmonary nodules. Continue with yearly screening. Next in January of 2025. Coding Level of Care Code Est Pt Level 4 (99165) Diagnoses Panlobular emphysema J43.1 COPD type: emphysema Emphysema type: panlobular Personal history of nicotine dependence Z87.891
== END 2024-03-05 15:52 | disposition home or self-care (01) ==
PROVIDERS: PCP Internal Medicine; Visit Provider Internal Medicine Pulmonary Disease
DX: J43.1 Panlobular emphysema (principal); Z87.891 Personal history of nicotine dependence
CPT/HCPCS: 99214

== ENCOUNTER → 2024-03-05 15:36 | Outpatient (BNVA) | payer MEDICARE, SELFPAY | PROVIDERS: PCP Internal Medicine; Visit Provider Internal Medicine Pulmonary Disease | DX: J43.1 Panlobular emphysema (principal); R91.8 Other nonspecific abnormal finding of lung field; Z79.899 Other long term (current) drug therapy; Z87.891 Personal history of nicotine dependence | CPT/HCPCS: 99212 ==

== ENCOUNTER 2024-03-18 11:11 | Outpatient (AMB) | payer MEDICARE, MEDICAID, SELFPAY ==
--- NOTE | 2024-03-18 11:17 | A.OFFVIS_ITS ---
Intake Visit Reasons: Gn[facility]/PSA/Testo(set)PA Set Intake Note: Patient is Present for Follow Up labs/Eligard Injection Urology Medication: Finasteride Antibiotic Allergies:None Blood Thinners: None Allergies No Known Allergies Allergy (Verified 03/03/24 09:45) HPI Comments Details: Daryn is a pleasant male. He is a patient of Dr. Woods. He is seen for the following urologic conditions - elevated PSA - lower urinary tract symptoms 02/28 <0.1 T Third GnRH today Minimal symptoms Does have hot flashes response to gabapentin Three-month follow-up lab work tele 01/03 0.1, T Discussed lab work Recommend 3rd GnRH in 3 months, continue finasteride Does have hot flashes - is on gabapentin 09/01 [facility], finasteride - main concern was proctitis which was resolving PSA 05/02 0.6 Gn[facility] 03/04/23 with finasteride - MAB during XRT ([facility] bicalutamide + finasteride) Prostate cancer - Grade Group Grade Group 4 - EXBRT with maximum androgen blockade ([facility]) completed April 2023 Adenocarcinoma of the prostate (T1c N0 M0, Goodwin score 3+5, Grade Group 4, PSA at Diagnosis 5.4) - NCCN high risk group Prostate cancer was diagnosed Dr Flower Diagnosis was reached by - for elevated PSA - 5.4 F 11% - 40cc Date: 12/02 12 Core biopsy Positive Biopsies: 4 Negative Biopsies: 8 - (%) Positive: Locations: Left base lateral 3+4 25%, left base medial 3+4 25%, left mid lateral 3+3 5%, left mid medial 3+5 25% TNM Classification of Malignant Tumours (TNM) - T2a Staging Imaging - 12/02 PMSA - metabolically active prostate, question of rib involvement however unlikely - 01/30 prostate MRI - left posterolateral mid, base 1.5 cm PI-RADS 4 with abutment, no clear evidence of extracapsular extension Associated conditions erectile dysfunction Mild EXBRT with maximum androgen blockade with Dr. Austin at [facility] 7600 grade, 44 fractions Lower urinary tract symptoms Nocturia 2-3 Variable stream Prior medications include tamsulosin, finasteride and terazosin ALEK 1+ prominent medial sulcus Low libido Reports decline in desire Baseline chronic opiate use T 10/01 452 PSA 05/01 5.9, 10/01 5.4 11% [facility] Medical History Colon cancer screening Nocturia Heartburn Muscle spasms of neck Pain management Opioid dependence Hypertension, essential GERD (gastroesophageal reflux disease) Smokers' cough Drug induced constipation COPD (chronic obstructive pulmonary disease) Tobacco abuse Asthma Failed back syndrome Surgical History History of colonoscopy (04/10/10) History of rotator cuff surgery History of repair of laceration History of fusion of cervical spine History of laminectomy Family History Father HTN (hypertension) Lung cancer Mother HTN (hypertension) Dementia Breast cancer Maternal Grandmother No problems noted. Maternal Grandfather No problems noted. Paternal Grandfather No problems noted. Paternal Grandmother No problems noted. Brother Throat cancer Lung cancer Brother No problems noted. Daughter No problems noted. Daughter No problems noted. Sister Ovarian cancer Sister No problems noted. Sister No problems noted. Sister No problems noted. Maternal Aunt Breast cancer Social History Household Members: Family Housing: House Alcohol intake: current Alcohol intake frequency: a few times a week Patient Tobacco Use Status: Current everyday Tobacco user Tobacco use type: Cigarette Cigarette Packs Per Day: 1 Cigarettes Per Day: 20.0 e-Cigarette/Vaping Use: Never Used service: No Current occupational status: disabled Cognitive needs: No Hearing needs: No Vision needs: Yes Review of Systems Const Denies chills and Denies fever(s) Card Reports no additional complaints and Denies syncope Resp Denies cough GI Denies abdominal pain and Denies heartburn Reports as per HPI and Denies change in libido Neuro Denies syncope Psych Denies change in libido Endo Denies change in libido Physical Exam Const General: cooperative, healthy appearing, comfortable and no acute distress Orientation/consciousness: patient oriented x3 HEENT Face and sinus: Yes normal facial exam Mouth: moist mucous membranes Neck Neck: Yes normal visual inspection, Yes full ROM and Yes trachea midline Chest Chest palpation & inspection: normal inspection of the chest Resp Effort & Inspection: normal respiratory effort, able to speak in complete sentences and no respiratory distress GI Inspection: Yes normal to inspection Back/Spine/Pelvis Cervical Spine: normal cervical lordosis Thoracic/Lumbar Spine: thoracic and lumbar spine normal to inspection Skin General skin exam: no rashes or lesions noted Neuro General: patient oriented x3, gait normal, tone normal and moves all extremities Extrem General: Yes normal to inspection and Yes capillary refill normal Office Meds Eligard (6 month) 45 mg (6 month) subcutaneous syringe Performing Provider: Samy Flower MD [facility] Administered by: Drew Fisher LPN on 03/18/24 11:30 Dose Route Admin Location Dispensed Lot Number Expiration Date [facility] Volcanologist 45 mg subcut right arm 45 mg [id number] 06/10/25 65402-140-07 M[employer]D ANTIQUES & CONSIGNMENT. Assessment & Plan Assessment & Plan (1) Prostate cancer: Comment: 12/02 PSA 5.4, high risk Goodwin 3 + 5, 4 cores Code(s): C61 - Malignant neoplasm of prostate Category: Medical (2) Nocturia more than twice per night: Code(s): R35.1 - Nocturia Category: Medical Plan Three-month follow-up lab work [facility] today Orders: Orders AMB Leuprolide Injection - Practice Supplied Today C61 - Malignant neoplasm of prostate, R97.20 - Elevated prostate specific antigen [PSA] Patient Instructions: Imaging studies, laboratory and physical exam results were discussed and reviewed in detail. No major barriers to patient understanding were identified. An opportunity to ask questions regarding the treatment plan was provided. All questions were answered. The patient expressed understanding and agreement with the above treatment plan. The patient is aware they should contact our office by phone for worsening of their current condition or the appearance of new urologic symptoms. Compliance is encouraged with any medications and followup testing that is ordered. It is a privilege to participate in the urologic care of your patient. If you have any questions or concerns regarding treatment for the above conditions, or other urologic issues, please do not hesitate to contact me. The office telephone contact is [phone]. This note is constructed using voice recognition software. While every effort has been made to ensure accuracy sales merchandise associate errors may have been included. Yours sincerely, Dr Samy Flower MD, [facility] Providers of Expert, Compassionate Care for the Genitourinary System Coding Level of Care Code Est Pt Level 4 (74174) Diagnoses Prostate cancer C61 Nocturia more than twice per night R35.1
== END 2024-03-18 11:47 | disposition home or self-care (01) ==
PROVIDERS: PCP Internal Medicine; Visit Provider Urology
DX: R97.20 Elevated prostate specific antigen [PSA] (principal); C61 Malignant neoplasm of prostate; R35.1 Nocturia
CPT/HCPCS: 99213

== ENCOUNTER → 2024-03-18 11:11 | Outpatient (BNVA) | payer MEDICARE, MEDICAID, SELFPAY | PROVIDERS: PCP Internal Medicine; Visit Provider Urology | DX: C61 Malignant neoplasm of prostate (principal); R35.1 Nocturia | CPT/HCPCS: 96402; 99212; J9217 ==

== ENCOUNTER 2024-04-13 09:47 | Outpatient (AMB) | payer MEDICARE, SELFPAY ==
[2024-04-13 09:51] VITALS: BP 130/70; PULSE 78; O2SAT 98; BMI 22.8
--- NOTE | 2024-04-13 09:51 | A.OFFPC_ITS ---
Vital Signs 04/13/24 09:51 Height 5 ft 11 in Weight 163 lb 4 oz BMI 22.8 BP 130/70 Blood Pressure Location Rt popliteal Position Sitting Pulse 78 Pulse Source Pulse Oximeter Pulse Oximetry (%) 98 Oxygen Delivery Method Room Air Intake Visit Reasons: Follow up Allergies No Known Allergies Allergy (Verified 04/13/24 09:53) Medication List - Last Reconciled 04/13/24 by Lloyd Woods MD albuterol sulfate 90 mcg/actuation (ProAir HFA) 1 inh inhalation QID PRN 30 days amlodipine 10 mg PO DAILY 90 days Anoro Ellipta 62.5-25 mcg/actuation (umeclidinium-vilanterol) 1 inh inhalation DAILY NS cetirizine 10 mg PO DAILY 90 days cholecalciferol (vitamin D3) 25 mcg PO DAILY 90 days cyclobenzaprine 5 mg PO BEDTIME PRN 30 days finasteride 5 mg PO DAILY 90 days gabapentin 2 at night and 1 in the morning 30 days gabapentin 600 mg PO DAILY ipratropium-albuterol 0.5 mg-3 mg(2.5 mg base)/3 mL 3 mL inhalation Q6-8H PRN 30 days leuprolide acetate (6 month) (Eligard) 45 mg subcut [id number] lisinopril 40 mg PO DAILY 90 days montelukast 10 mg PO DAILY 90 days omeprazole 20 mg PO DAILY oxycodone 10 mg PO TID 30 days sucralfate (Carafate) 10 mL PO BID 30 days Tobacco use date assessed: 04/13/24 Fall risk assessment: No Falls in past year Last assessed Fall Risk: 04/13/24 Dental Screening Dental Screen Date: 04/13/24 Did you have a dental visit in the last 12 months?: Yes Did you have a dental problem in the last 6 months where you did not have access to dental care?: No Was dental information given to patient?: Patient has dentist HPI Follow up HPI Details Patient is a 68-year-old gentleman came in today for his pain medication refill Patient suffers from COPD secondary to years of smoking, and he is still smoking Patient is seeing qi specialist for the management Patient have a failed back syndrome and is currently taking oxycodone 10 mg 3 times a day Patient is aware of side effects and is complying with the treatment plan He is also on gabapentin 600 mg at night and 300 mg in the morning Instructed patient not to drink alcohol while taking the gabapentin And muscle relaxer Patient is going through radiation therapy for prostate cancer Also suffers from low testosterone level, and is getting treatment through Urology GERD is stable blood pressure is controlled, continue lisinopril 40 mg Allergies are stable patient is on Zyrtec, and montelukast FOR[facility]LY [facility], [facility] Medical History Colon cancer screening Nocturia Heartburn Muscle spasms of neck Pain management Opioid dependence Hypertension, essential GERD (gastroesophageal reflux disease) Smokers' cough Drug induced constipation COPD (chronic obstructive pulmonary disease) Tobacco abuse Asthma Failed back syndrome Surgical History History of colonoscopy (04/10/10) History of rotator cuff surgery History of repair of laceration History of fusion of cervical spine History of laminectomy Family History Father HTN (hypertension) Lung cancer Mother HTN (hypertension) Dementia Breast cancer Maternal Grandmother No problems noted. Maternal Grandfather No problems noted. Paternal Grandfather No problems noted. Paternal Grandmother No problems noted. Brother Throat cancer Lung cancer Brother No problems noted. Daughter No problems noted. Daughter No problems noted. Sister Ovarian cancer Sister No problems noted. Sister No problems noted. Sister No problems noted. Maternal Aunt Breast cancer Social History Household Members: Family Housing: House Alcohol intake: current Alcohol intake frequency: a few times a week Patient Tobacco Use Status: Current everyday Tobacco user Tobacco use type: Cigarette Cigarette Packs Per Day: 1 Cigarettes Per Day: 20.0 e-Cigarette/Vaping Use: Never Used service: No Current occupational status: disabled Cognitive needs: No Hearing needs: No Vision needs: Yes Questionnaire Thrive Questionnaire Date Thrive assessed: 03/03/24 AUDIT C Alcohol Use Questionnaire (AUDIT-C) 1. How often do you have a drink containing alcohol?: Never 3. How often do you have six or more drinks on one occasion?: Never Total Score: 0 Score Reviewed/Action Taken: Yes VIVIANA-7 AMB Questionnaire VIVIANA-7 Date VIVIANA - 7 assessed: 03/03/24 Source: Developed by Drs. Juan Motley, Blanca Manzo, Kelton Mooney and colleagues, with an educational homa from [employer]. Review of Systems Const Denies chills and Denies fever(s) ENT Denies epistaxis and Denies nasal discharge Card Denies chest pain Resp Denies chest congestion, Denies cough and Denies hemoptysis GI Denies diarrhea and Denies nausea Skin/Breast Denies rash Neuro Reports no additional complaints Psych Reports no additional complaints Endo Reports no additional complaints Physical exam (Primary Care) Vital Signs: Last Vital Signs Pulse 78 04/13/24 09:51 BP 130/70 04/13/24 09:51 Pulse Ox 98 04/13/24 09:51 Oxygen Delivery Method Room Air 04/13/24 09:51 BMI result Body Mass Index 22.8 Tobacco/Smoking Status: Tobacco use Status Tobacco use date assessed 04/13/24 04/13/24 09:54 Patient Tobacco Use Status Current everyday Tobacco 04/13/24 09:54 Tobacco use type Cigarette 04/13/24 09:54 e-Cigarette/Vaping Use Never Used 04/13/24 09:54 Thrive Assessment: Date of Thrive Assessment Date Thrive assessed 03/03/24 04/13/24 09:54 Const General: cooperative, comfortable and no acute distress Orientation/consciousness: patient oriented x3 HENMT Head: Yes normocephalic Eyes General: appearance normal, both eyes and all related structures Neck Neck: Yes supple Resp Effort & Inspection: normal respiratory effort, no cough and no stridor Cardio Rhythm: regular rhythm Heart sounds: S1 normal heart sound present and S2 normal heart sound present Skin General skin exam: turgor normal Neuro General: patient oriented x3, tone normal and moves all extremities Extrem Right lower extremity: no edema Left lower extremity: no edema Assessment and Plan Assessment & Plan (1) Hypertension, essential: Code(s): I10 - Essential (primary) hypertension (2) Failed back syndrome: Code(s): M96.1 - Postlaminectomy syndrome, not elsewhere classified (3) COPD (chronic obstructive pulmonary disease): Code(s): J44.9 - Chronic obstructive pulmonary disease, unspecified Qualifiers: COPD type: emphysema Emphysema type: panlobular Qualified Code(s): J43.1 - Panlobular emphysema (4) GERD (gastroesophageal reflux disease): Code(s): K21.9 - Gastro-esophageal reflux disease without esophagitis Qualifiers: Esophagitis presence: without esophagitis Qualified Code(s): K21.9 - Gastro-esophageal reflux disease without esophagitis (5) Pain management: Code(s): R52 - Pain, unspecified (6) Opioid dependence: Comment: CONTROLLED NATURE OF MEDICATION WAS DISCUSSED, IT IS IMPORTANT TO NOTIFY ME OF CHANGE OF PHARMACY, OR IF TRAVELING. DO NOT SHARE THE MEDICATION WITH ANYBODY, KEEP IT SAFE AWAY FROM THE HANDS OF SMALL CHILDREN, AND ONLY TAKE IT PRESCRIBED. THIS MEDICATION HAVE A TENDENCY TO BE ABUSED, HABIT-FORMING, AND IT CAN CAUSE SEVERE CONSTIPATION ALONG WITH OTHER ALLERGIC REACTIONS. LONG-TERM USE OF NARCOTIC MEDICATIONS HAVE SHOWN TO INCREASE SENSITIVITY TO PAIN. Code(s): F11.20 - Opioid dependence, uncomplicated Qualifiers: Substance use status: uncomplicated Qualified Code(s): F11.20 - Opioid dependence, uncomplicated (7) Nicotine dependence: Code(s): F17.200 - Nicotine dependence, unspecified, uncomplicated Qualifiers: Nicotine product type: cigarettes Substance use status: uncomplicated Qualified Code(s): F17.210 - Nicotine dependence, cigarettes, uncomplicated (8) Environmental allergies: Code(s): Z91.09 - Other allergy status, other than to drugs and biological substances (9) Smokers' cough: Code(s): J41.0 - Simple chronic bronchitis (10) Impaired fasting blood sugar: Code(s): R73.01 - Impaired fasting glucose Plan Patient is a 68-year-old gentleman came in today for his pain medication refill Patient suffers from COPD secondary to years of smoking, and he is still smoking Patient is seeing qi specialist for the management Patient have a failed back syndrome and is currently taking oxycodone 10 mg 3 times a day Patient is aware of side effects and is complying with the treatment plan He is also on gabapentin 600 mg at night and 300 mg in the morning Instructed patient not to drink alcohol while taking the gabapentin And muscle relaxer Patient is going through radiation therapy for prostate cancer Also suffers from low testosterone level, and is getting treatment through Urology GERD is stable blood pressure is controlled, continue lisinopril 40 mg Allergies are stable patient is on Zyrtec, and montelukast Medications: Refilled oxycodone partial refill allowed 10 mg PO TID 30 days 90 tabs 0RF pain F11.20 - Opioid dependence, uncomplicated, M96.1 - Postlaminectomy syndrome, not elsewhere classified, R52 - Pain, unspecified gabapentin 2 at night and 1 in the morning 30 days 90 caps 0RF Coding Level of Care Code Est Pt Level 4 (99413) Complex EM visit Add On G2211 Diagnoses Hypertension, essential I10 Failed back syndrome M96.1 Panlobular emphysema J43.1 COPD type: emphysema Emphysema type: panlobular Gastroesophageal reflux disease without esophagitis K21.9 Esophagitis presence: without esophagitis Pain management R52 Uncomplicated opioid dependence F11.20 Substance use status: uncomplicated Cigarette nicotine dependence without complication F17.210 Nicotine product type: cigarettes Substance use status: uncomplicated Environmental allergies Z91.09 Smokers' cough J41.0 Impaired fasting blood sugar R73.01
== END 2024-04-13 10:59 | disposition home or self-care (01) ==
PROVIDERS: PCP Internal Medicine; Visit Provider Internal Medicine
DX: J43.1 Panlobular emphysema (principal); F11.20 Opioid dependence, uncomplicated; J41.0 Simple chronic bronchitis; I10 Essential (primary) hypertension; M96.1 Postlaminectomy syndrome, not elsewhere classified; K21.9 Gastro-esophageal reflux disease without esophagitis; R52 Pain, unspecified; F17.210 Nicotine dependence, cigarettes, uncomplicated; Z91.09 Other allergy status, other than to drugs and biological substances; R73.01 Impaired fasting glucose
CPT/HCPCS: 99214; G2211

== ENCOUNTER 2024-04-19 09:37 | Outpatient (AMB) | payer MEDICARE, MEDICAID, SELFPAY ==
[2024-04-19 09:47] VITALS: BP 113/64; PULSE 63; BMI 23.4
--- NOTE | 2024-04-19 09:47 | A.OFFVIS_ITS ---
Vital Signs 04/19/24 09:47 Height 5 ft 11 in Weight 168 lb BMI 23.4 BP 113/64 Blood Pressure Location Rt brachial Position Sitting Pulse 63 Intake Visit Reasons: discuss repeat colonoscopy (see 04/11/23 report) Intake Note: This patient present for a recall colonoscopy screening. patient c/o; reports Miralax and dulcolax was not effective for his last colonoscopy pt will need an alternative. Last colonoscopy:04/11/23 Outpatient Interviewing Clerk Required: No Accompanied by: Self / Same As Patient Allergies No Known Allergies Allergy (Verified 04/19/24 09:54) Medication List - Last Reconciled 04/19/24 by Carlos Chaney MD albuterol sulfate 90 mcg/actuation (ProAir HFA) 1 inh inhalation QID PRN 30 days amlodipine 10 mg PO DAILY 90 days Anoro Ellipta 62.5-25 mcg/actuation (umeclidinium-vilanterol) 1 inh inhalation DAILY NS cetirizine 10 mg PO DAILY 90 days cholecalciferol (vitamin D3) 25 mcg PO DAILY 90 days cyclobenzaprine 5 mg PO BEDTIME PRN 30 days finasteride 5 mg PO DAILY 90 days gabapentin 2 at night and 1 in the morning 30 days ipratropium-albuterol 0.5 mg-3 mg(2.5 mg base)/3 mL 3 mL inhalation Q6-8H PRN 30 days leuprolide acetate (6 month) (Eligard) 45 mg subcut [id number] lisinopril 40 mg PO DAILY 90 days montelukast 10 mg PO DAILY 90 days omeprazole 20 mg PO DAILY oxycodone 10 mg PO TID 30 days sucralfate (Carafate) 10 mL PO BID 30 days HPI HPI discuss repeat colonoscopy (see 04/11/23 report): Details: 68-year-old male here for a repeat colonoscopy. He had a colonoscopy last February,. There was note of an ulcer in the proximal part of the transverse colon. Biopsy of this showed mild colitis . In view of this ulcer I have recommended repeating the colonoscopy after a year . He currently denies GI complaints. He had undergone Alen for his prostate cancer. He continues to have frequency of urination He also is an active smoker. [facility] Medical History Colitis Colon cancer screening Nocturia Heartburn Muscle spasms of neck Pain management Opioid dependence Hypertension, essential GERD (gastroesophageal reflux disease) Smokers' cough Drug induced constipation COPD (chronic obstructive pulmonary disease) Tobacco abuse Asthma Failed back syndrome Surgical History History of colonoscopy (04/10/10) History of rotator cuff surgery History of repair of laceration History of fusion of cervical spine History of laminectomy Family History Father HTN (hypertension) Lung cancer Mother HTN (hypertension) Dementia Breast cancer Maternal Grandmother No problems noted. Maternal Grandfather No problems noted. Paternal Grandfather No problems noted. Paternal Grandmother No problems noted. Brother Throat cancer Lung cancer Brother No problems noted. Daughter No problems noted. Daughter No problems noted. Sister Ovarian cancer Sister No problems noted. Sister No problems noted. Sister No problems noted. Maternal Aunt Breast cancer Social History Household Members: Family Housing: House Alcohol intake: current Alcohol intake frequency: a few times a week Patient Tobacco Use Status: Current everyday Tobacco user Tobacco use type: Cigarette Cigarette Packs Per Day: 1 Cigarettes Per Day: 20.0 e-Cigarette/Vaping Use: Never Used service: No Current occupational status: disabled Cognitive needs: No Hearing needs: No Vision needs: Yes Review of Systems Const Denies chills and Denies fever(s) Card Denies chest pain, Denies dyspnea and Denies dyspnea on exertion Resp Denies cough, Denies dyspnea and Denies dyspnea on exertion GI Denies hematochezia and Denies change in bowel habits Denies hematuria and Denies difficulty urinating Musc Denies back pain and Denies limited range of motion Neuro Denies focal weakness and Denies convulsions Psych Denies depression and Denies mood swings Physical Exam Vital Signs: Last Vital Signs Pulse 63 04/19/24 09:47 BP 113/64 04/19/24 09:47 BMI result Body Mass Index 23.4 Const General: comfortable and no acute distress Orientation/consciousness: patient oriented x3 Neck Neck: Yes no lymphadenopathy Resp Other: Occasional wheezing diffusely Auscultation: clear to auscultation bilaterally Cardio Rhythm: regular rhythm GI Palpation (GI): Soft to palpation, nontender and no guarding Neuro General: patient oriented x3 Assessment & Plan Assessment & Plan (1) Colitis: Code(s): K52.9 - Noninfective gastroenteritis and colitis, unspecified Category: Medical Plan: He had a colonoscopy last year showing an ulcer and the biopsy shows colitis. I had recommended repeating his colonoscopy after 1 year because of this finding of an ulcer. I reviewed with him the technique with the procedure. I explained the risks including but not limited to bleeding and perforation, as well as the benefits, and alternatives. He says he understands and agrees to proceed. Coding Level of Care Code Est Pt Level 3 (01467) Diagnoses Colitis K52.9
== END 2024-04-19 10:36 | disposition home or self-care (01) ==
PROVIDERS: PCP Internal Medicine; Visit Provider Surgery
DX: K52.9 Noninfective gastroenteritis and colitis, unspecified (principal)
CPT/HCPCS: 99213

== ENCOUNTER → 2024-04-19 09:37 | Outpatient (BNVA) | payer MEDICARE, SELFPAY | PROVIDERS: PCP Internal Medicine; Visit Provider Surgery | DX: K52.9 Noninfective gastroenteritis and colitis, unspecified (principal) | CPT/HCPCS: 99212 ==

== ENCOUNTER 2024-05-11 10:37 | Outpatient (AMB) | payer MEDICARE, SELFPAY ==
--- NOTE | 2024-05-11 10:37 | A.OFFPC_ITS ---
Intake Visit Reasons: Medication F/u~ [phone] Allergies No Known Allergies Allergy (Verified 05/11/24 10:39) Medication List - Last Reconciled 05/11/24 by Lloyd Woods MD albuterol sulfate 90 mcg/actuation (ProAir HFA) 1 inh inhalation QID PRN 30 days amlodipine 10 mg PO DAILY 90 days Anoro Ellipta 62.5-25 mcg/actuation (umeclidinium-vilanterol) 1 inh inhalation DAILY NS cetirizine 10 mg PO DAILY 90 days cholecalciferol (vitamin D3) 25 mcg PO DAILY 90 days cyclobenzaprine 5 mg PO BEDTIME PRN 30 days finasteride 5 mg PO DAILY 90 days gabapentin 2 at night and 1 in the morning 30 days ipratropium-albuterol 0.5 mg-3 mg(2.5 mg base)/3 mL 3 mL inhalation Q6-8H PRN 30 days leuprolide acetate (6 month) (Eligard) 45 mg subcut [id number] lisinopril 40 mg PO DAILY 90 days montelukast 10 mg PO DAILY 90 days omeprazole 20 mg PO DAILY oxycodone 10 mg PO TID 30 days sodium,potassium,mag sulfates 17.5-3.13-1.6 gram (Suprep Bowel Prep Kit) DILUTE; drink full amount early evening before AND next morning at least 2 hr before procedure; follow w 960 mL water PO sucralfate (Carafate) 10 mL PO BID 30 days Tobacco use date assessed: 05/11/24 Fall risk assessment: No Falls in past year Last assessed Fall Risk: 05/11/24 Dental Screening Dental Screen Date: 05/11/24 Did you have a dental visit in the last 12 months?: Yes Did you have a dental problem in the last 6 months where you did not have access to dental care?: No Was dental information given to patient?: Patient has dentist HPI Medication F/u~ [phone] HPI Details Patient is 68-year-old gentleman this is a telemedicine video conference to fill his medication Patient have a failed back syndrome and is currently taking oxycodone 10 mg 3 times a day Patient is aware of side effects and is complying with the treatment plan Prostate cancer management through urology Continue to smoke and have no desire to stop PFSH Medical History Colitis Colon cancer screening Nocturia Heartburn Muscle spasms of neck Pain management Opioid dependence Hypertension, essential GERD (gastroesophageal reflux disease) Smokers' cough Drug induced constipation COPD (chronic obstructive pulmonary disease) Tobacco abuse Asthma Failed back syndrome Surgical History History of colonoscopy (04/10/10) History of rotator cuff surgery History of repair of laceration History of fusion of cervical spine History of laminectomy Family History Father HTN (hypertension) Lung cancer Mother HTN (hypertension) Dementia Breast cancer Maternal Grandmother No problems noted. Maternal Grandfather No problems noted. Paternal Grandfather No problems noted. Paternal Grandmother No problems noted. Brother Throat cancer Lung cancer Brother No problems noted. Daughter No problems noted. Daughter No problems noted. Sister Ovarian cancer Sister No problems noted. Sister No problems noted. Sister No problems noted. Maternal Aunt Breast cancer Social History Household Members: Family Housing: House Alcohol intake: current Alcohol intake frequency: a few times a week Patient Tobacco Use Status: Current everyday Tobacco user Tobacco use type: Cigarette Cigarette Packs Per Day: 1 Cigarettes Per Day: 20.0 e-Cigarette/Vaping Use: Never Used service: No Current occupational status: disabled Cognitive needs: No Hearing needs: No Vision needs: Yes Questionnaire Thrive Questionnaire Date Thrive assessed: 03/03/24 AUDIT C Alcohol Use Questionnaire (AUDIT-C) 1. How often do you have a drink containing alcohol?: Never 3. How often do you have six or more drinks on one occasion?: Never Total Score: 0 Score Reviewed/Action Taken: Yes VIVIANA-7 AMB Questionnaire VIVIANA-7 Date VIVIANA - 7 assessed: 03/03/24 Source: Developed by Drs. Juan Motley, Blanca Manzo, Kelton Mooney and colleagues, with an educational homa from [employer]. Review of Systems Const Denies chills and Denies fever(s) ENT Denies epistaxis and Denies nasal discharge Card Denies chest pain Resp Denies chest congestion, Denies cough and Denies hemoptysis GI Denies diarrhea and Denies nausea Skin/Breast Denies rash Neuro Reports no additional complaints Psych Reports no additional complaints Endo Reports no additional complaints Physical exam (Primary Care) Tobacco/Smoking Status: Tobacco use Status Tobacco use date assessed 05/11/24 05/11/24 10:39 Patient Tobacco Use Status Current everyday Tobacco 05/11/24 10:38 Tobacco use type Cigarette 05/11/24 10:38 e-Cigarette/Vaping Use Never Used 05/11/24 10:38 Thrive Assessment: Date of Thrive Assessment Date Thrive assessed 03/03/24 05/11/24 10:38 Telehealth Telehealth Telehealth Platform: [employer] Location of provider rendering services: practice address Location of patient: address on file Patient Identification confirmed using: Name, : Yes Telehealth method: video Patient verbally consented to treatment: Yes Patient verbally consented to billing insurance company: Yes Patient informed of any privacy concerns related to visit: Yes Minutes spent on Phone/Video with Pt.: 16 Assessment and Plan Assessment & Plan (1) Failed back syndrome: Code(s): M96.1 - Postlaminectomy syndrome, not elsewhere classified (2) Opioid dependence: Comment: CONTROLLED NATURE OF MEDICATION WAS DISCUSSED, IT IS IMPORTANT TO NOTIFY ME OF CHANGE OF PHARMACY, OR IF TRAVELING. DO NOT SHARE THE MEDICATION WITH ANYBODY, KEEP IT SAFE AWAY FROM THE HANDS OF SMALL CHILDREN, AND ONLY TAKE IT PRESCRIBED. THIS MEDICATION HAVE A TENDENCY TO BE ABUSED, HABIT-FORMING, AND IT CAN CAUSE SEVERE CONSTIPATION ALONG WITH OTHER ALLERGIC REACTIONS. LONG-TERM USE OF NARCOTIC MEDICATIONS HAVE SHOWN TO INCREASE SENSITIVITY TO PAIN. Code(s): F11.20 - Opioid dependence, uncomplicated Qualifiers: Substance use status: uncomplicated Qualified Code(s): F11.20 - Opioid dependence, uncomplicated (3) Nicotine dependence: Code(s): F17.200 - Nicotine dependence, unspecified, uncomplicated Qualifiers: Nicotine product type: cigarettes Substance use status: uncomplicated Qualified Code(s): F17.210 - Nicotine dependence, cigarettes, uncomplicated (4) Pain management: Code(s): R52 - Pain, unspecified (5) Tobacco abuse: Code(s): Z72.0 - Tobacco use (6) COPD (chronic obstructive pulmonary disease): Code(s): J44.9 - Chronic obstructive pulmonary disease, unspecified Qualifiers: COPD type: chronic bronchitis Chronic bronchitis type: mixed simple and mucopurulent Qualified Code(s): J41.8 - Mixed simple and mucopurulent chronic bronchitis Plan Patient is 68-year-old gentleman this is a telemedicine video conference to fill his medication Patient have a failed back syndrome and is currently taking oxycodone 10 mg 3 times a day Patient is aware of side effects and is complying with the treatment plan Prostate cancer management through urology Continue to smoke and have no desire to stop He has COPD asthma overlap syndrome Medications: Refilled gabapentin 2 at night and 1 in the morning 90 caps 0RF 30 days oxycodone partial refill allowed 10 mg PO TID 90 tabs 0RF pain 30 days F11.20 - Opioid dependence, uncomplicated, M96.1 - Postlaminectomy syndrome, not elsewhere classified, R52 - Pain, unspecified Coding Level of Care Code Tele Est Pt Level 3 (74539) Diagnoses Failed back syndrome M96.1 Uncomplicated opioid dependence F11.20 Substance use status: uncomplicated Cigarette nicotine dependence without complication F17.210 Nicotine product type: cigarettes Substance use status: uncomplicated Pain management R52 Tobacco abuse Z72.0 Mixed simple and mucopurulent chronic bronchitis J41.8 COPD type: chronic bronchitis Chronic bronchitis type: mixed simple and mucopurulent
== END 2024-05-11 11:30 | disposition home or self-care (01) ==
PROVIDERS: PCP Internal Medicine; Visit Provider Internal Medicine
DX: M96.1 Postlaminectomy syndrome, not elsewhere classified (principal); F11.20 Opioid dependence, uncomplicated; J41.8 Mixed simple and mucopurulent chronic bronchitis; F17.210 Nicotine dependence, cigarettes, uncomplicated; R52 Pain, unspecified; Z72.0 Tobacco use
CPT/HCPCS: 99213

== ENCOUNTER 2024-06-01 12:53 | Outpatient (AMB) | payer MEDICARE, SELFPAY ==
--- NOTE | 2024-06-01 12:58 | MHC.OFFWIV ---
Intake Vital Signs 06/01/24 13:01 Height 5 ft 11 in Weight 168 lb BMI 23.4 BP 130/80 Blood Pressure Location Rt brachial Position Sitting Pulse 59 Pulse Source Pulse Oximeter Pulse Oximetry (%) 96 Oxygen Delivery Method Room Air Intake Visit Reasons: EP back pain Intake Note: pt is here for back pain Patient Tobacco Use Status: Current everyday Tobacco user Allergies No Known Allergies Allergy (Verified 06/01/24 13:03) Do you need a note to return to daycare/school/sports/work: No HPI HPI Comments History of Present Illness Details Patient is a 68yo M who presents with back pain States chronic back pain with hx of fusions Was walking backwards on and tripped Fell onto L side and back No HT or LOC Since, his back, L side has been hurting worse Intermittent sharp pain down L leg and into R glute No saddle parethesias, urine or bowl incontinence No dysuria, hematuria or urine complaint Taking chronic at home meds: Cyclobenzaprine, Oxycodone, gabapetin Oxycodone helps but not complete resolution No other complaints [facility] Medical History (Updated 06/01/24 @ 13:15 by Araceli Marquez PA-C) Arthritis Back pain Hx of radiation therapy HTN (hypertension) Colitis Colon cancer screening Nocturia Heartburn Muscle spasms of neck Pain management Opioid dependence Hypertension, essential GERD (gastroesophageal reflux disease) Smokers' cough Drug induced constipation COPD (chronic obstructive pulmonary disease) Tobacco abuse Asthma Failed back syndrome Surgical History History of colonoscopy (04/10/10) History of rotator cuff surgery History of repair of laceration History of fusion of cervical spine History of laminectomy Family History Father HTN (hypertension) Lung cancer Mother HTN (hypertension) Dementia Breast cancer Maternal Grandmother No problems noted. Maternal Grandfather No problems noted. Paternal Grandfather No problems noted. Paternal Grandmother No problems noted. Brother Throat cancer Lung cancer Brother No problems noted. Daughter No problems noted. Daughter No problems noted. Sister Ovarian cancer Sister No problems noted. Sister No problems noted. Sister No problems noted. Maternal Aunt Breast cancer Social History Household Members: Family Housing: House Are you a primary healthcare analyst to a significant other at home: No Do you presently have visiting nurse or other home services: No Alcohol intake: current Alcohol intake frequency: holidays/special occasions only Patient Tobacco Use Status: Current everyday Tobacco user Tobacco use type: Cigarette Cigarette Packs Per Day: 1.0 Cigarettes Per Day: 20.0 e-Cigarette/Vaping Use: Never Used service: No Current occupational status: disabled Cognitive needs: No Hearing needs: No Vision needs: Yes Review of Systems Const Denies chills and Denies fever(s) ENT Denies dizziness Card Denies chest pain, Denies syncope and Denies dyspnea Resp Denies dyspnea GI Denies abdominal pain Reports as per HPI Musc Reports back pain, Reports radiating pain into limb and Denies tingling Skin/Breast Denies rash Neuro Denies dizziness, Denies syncope and Denies tingling Physical Exam Vital Signs: Last Vital Signs Pulse 59 06/01/24 13:01 BP 130/80 06/01/24 13:01 Pulse Ox 96 06/01/24 13:01 Oxygen Delivery Method Room Air 06/01/24 13:01 BMI result Body Mass Index 23.4 General: Non-toxic, NAD. Speaking full sentences. Skin: Warm dry throughout. No posterior back or flank erythema, ecchymosis. Eye: EOMI Respiratory: No respiratory distress Cardiac: No calf tenderness or pedal edema MSK: Midline lumbar tenderness to palpation with associated lumbar L sided paravertebral muscle tenderness. Full flexion of knees to abdomen bilaterally. Sit to stand position without deficit. 5/5 dorsal and plantar flexion great toe bilaterally. Neurology: A/O No aphasia or facial droop. Gait without abnormality Psych: Good mood and affect Assessment & Plan Assessment & Plan (1) Lumbar back pain: Code(s): M54.50 - Low back pain, unspecified Plan: Patient seen and evaluated. Xray lumbar back: I viewed and saw no displacement of hardware or acute abnormality. Will wait for official read and call pt if abnormal Advised continue chronic meds for pain and use SalonPas OTC ER s/s discussed and pt gave verbal understanding and had no additional questions or concerns at time of discharge All questions answered Orders: Orders XR lumbar spine 2-3V Today M54.50 - Low back pain, unspecified Coding Level of Care Code Est Pt Level 3 (04762) Diagnoses Lumbar back pain M54.50
[2024-06-01 13:01] VITALS: BP 130/80; PULSE 59; O2SAT 96; BMI 23.4
== END 2024-06-01 13:52 | disposition home or self-care (01) ==
PROVIDERS: PCP Internal Medicine; Visit Provider Physician Assistant
DX: M54.50 Low back pain, unspecified (principal)
CPT/HCPCS: 99213

== ENCOUNTER 2024-06-01 13:17 | Outpatient (REF) | payer MEDICARE, SELFPAY ==
--- NOTE | ~2024-06-01 | XR_ITS ---
EXAMINATION: XR LUMBOSACRAL SPINE CLINICAL INFORMATION: Low back pain. COMPARISON: CT abdomen pelvis July 14, 2021 TECHNIQUE: Three views of the lumbosacral spine. FINDINGS: Status post fusion L5-S1 with anterior plate and screw and disc spacer. Posterior screw at L4-L5 left-sided facet joint. Multilevel degenerative spondylosis of endplate spurring and facet joint arthrosis and disc height narrowing. No fracture. No acute abnormality. XR/XR lumbar spine 2-3V IMPRESSION: 1. Status post fusion L5-S1. 2. Multilevel degenerative spondylosis of lumbar spine. No acute abnormality.
== END 2024-06-01 13:18 | disposition home or self-care (01) ==
LOC: HO.HMGCX 13:17
PROVIDERS: PCP Internal Medicine; Visit Provider Physician Assistant
DX: M54.50 Low back pain, unspecified (principal)
CPT/HCPCS: 72100

== ENCOUNTER 2024-06-04 07:33 | Day surgery (SDC) | payer MEDICARE, SELFPAY ==
[2024-05-24 08:03] VITALS: BMI 23.4
--- NOTE | 2024-06-02 13:12 | P.CONAN_ITS ---
Documented by User: Cora Lopez NP 06/02/24 13:13 HPI - Anesthesia Eval Consult details Narrative: 68yo M for Colonoscopy, possible Polypectomy PMF Active Problems Active Problems: All Active Problems Lumbar back pain (Acute) Impaired fasting blood sugar (Acute) Vitamin D deficiency (Acute) Low testosterone in male (Acute) Vertigo (Acute) Acute bronchitis (Acute) Toe pain, right (Acute) Pain in both lower legs (Acute) Insertional Achilles tendinopathy (Acute) Personal history of nicotine dependence (Acute) Bilateral shoulder pain (Acute) Nicotine dependence (Acute) Pre-op evaluation (Acute) Prostate cancer (Acute) Skin lesion (Acute) Environmental allergies (Acute) Nocturia more than twice per night (Acute) Low libido (Acute) Wheezing (Acute) Pain of left heel (Acute) Elevated PSA (Acute) Pulmonary nodule (Acute) COPD (chronic obstructive pulmonary disease) (Acute) Swelling of right wrist (Acute) Diverticulosis (Acute) Fall (Acute) Fracture of right elbow (Acute) Hospital discharge follow-up (Acute) Right lower lobe pulmonary nodule (Acute) Wrist pain, right (Acute) Encounter for general adult medical examination with abnormal findings (Acute) S/P colonoscopy (Acute) Hemorrhoids (Acute) Diverticulosis large intestine w/o perforation or abscess w/o bleeding (Acute) Hordeolum externum right upper eyelid (Acute) Rib pain on right side (Acute) Colon cancer screening (Acute) Flank pain (Acute) Cough (Acute) Chest wall pain (Acute) Colitis (Acute) Colon cancer screening (Acute) Heartburn (Acute) Muscle spasms of neck (Acute) Pain management (Acute) Opioid dependence (Acute) Hypertension, essential (Acute) GERD (gastroesophageal reflux disease) (Acute) Smokers' cough (Acute) Drug induced constipation (Acute) COPD (chronic obstructive pulmonary disease) (Acute) Tobacco abuse (Acute) Asthma (Acute) Failed back syndrome (Acute) Past Medical History Medical History (Updated 06/01/24 @ 13:15 by Araceli Marquez PA-C) Arthritis Back pain Hx of radiation therapy HTN (hypertension) Colitis Colon cancer screening Nocturia Heartburn Muscle spasms of neck Pain management Opioid dependence Hypertension, essential GERD (gastroesophageal reflux disease) Smokers' cough Drug induced constipation COPD (chronic obstructive pulmonary disease) Tobacco abuse Asthma Failed back syndrome Family History Family History Father HTN (hypertension) Lung cancer Mother HTN (hypertension) Dementia Breast cancer Maternal Grandmother No problems noted. Maternal Grandfather No problems noted. Paternal Grandfather No problems noted. Paternal Grandmother No problems noted. Brother Throat cancer Lung cancer Brother No problems noted. Daughter No problems noted. Daughter No problems noted. Sister Ovarian cancer Sister No problems noted. Sister No problems noted. Sister No problems noted. Maternal Aunt Breast cancer Family history of problems with anesthesia: No Surgical History Surgical History History of colonoscopy (04/10/10) History of rotator cuff surgery History of repair of laceration History of fusion of cervical spine History of laminectomy History of Problems with Anesthesia: No Social History Social History Household Members: Family Housing: House Are you a primary skin care specialist to a significant other at home: No Do you presently have visiting nurse or other home services: No Alcohol intake: current Alcohol intake frequency: holidays/special occasions only Patient Tobacco Use Status: Current everyday Tobacco user Tobacco use type: Cigarette Cigarette Packs Per Day: 1.0 Cigarettes Per Day: 20.0 e-Cigarette/Vaping Use: Never Used Use of substances other than those prescribed or required for medical reasons: No Have you been hit, kicked, punched, or otherwise hurt by someone within the past year? If so, by whom?: No Are you DNR?: No Advance Directives: No Advance Directives Information Provided: Yes Advance Directives on File: No Recently lost weight without trying: No Eating poorly because of decreased appetite: No Nutrition Risks: No Nutritional Risk service: No Current occupational status: disabled Cognitive needs: No Hearing needs: No Vision needs: Yes Meds Allergies Allergy/AdvReac Type Severity Reaction Status Date / Time No Known Allergies Allergy Verified 06/01/24 13:03 Home Medications ?Medication ?Instructions ?Recorded ?Confirmed ?Last Taken ?Type leuprolide acetate (6 month) 45 mg 45 mg subcut [id number] 09/09/23 05/24/24 Unknown History (6 month) subcutaneous syringe ([employer]) gabapentin 300 mg capsule 300 mg PO BEDTIME 05/24/24 05/24/24 Unknown History sucralfate 100 mg/mL oral 10 ml PO BID PRN Acid Reflux 05/24/24 05/24/24 Unknown History suspension (Carafate) Exam Height,Weight and Vital Signs: Height 5 ft 11 in Weight 76.204 kg Pertinent Lab Results Pertinent Lab Results: Laboratory Tests 02/21/24 02/21/24 06:34 06:37 WBC 6.2 Hgb 13.9 L Hct 39.2 L Plt Count 285 Sodium 138 Potassium 4.4 Chloride 106 Carbon Dioxide 24 BUN 27 H Creatinine 0.82 Assessment and Plan Assessment Anesthesia Assessment: Chart Reviewed Final Anesthetic Review Family History of Problems with Anesthesia: No History of Problems with Anesthesia: No Documented by User: Millicent Peguero MD 06/04/24 07:58 [facility] Past Medical History Medical History (Updated 06/01/24 @ 13:15 by Araceli Marquez PA-C) Arthritis Back pain Hx of radiation therapy HTN (hypertension) Colitis Colon cancer screening Nocturia Heartburn Muscle spasms of neck Pain management Opioid dependence Hypertension, essential GERD (gastroesophageal reflux disease) Smokers' cough Drug induced constipation COPD (chronic obstructive pulmonary disease) Tobacco abuse Asthma Failed back syndrome Family History Family History Father HTN (hypertension) Lung cancer Mother HTN (hypertension) Dementia Breast cancer Maternal Grandmother No problems noted. Maternal Grandfather No problems noted. Paternal Grandfather No problems noted. Paternal Grandmother No problems noted. Brother Throat cancer Lung cancer Brother No problems noted. Daughter No problems noted. Daughter No problems noted. Sister Ovarian cancer Sister No problems noted. Sister No problems noted. Sister No problems noted. Maternal Aunt Breast cancer Surgical History Surgical History History of colonoscopy (04/10/10) History of rotator cuff surgery History of repair of laceration History of fusion of cervical spine History of laminectomy Social History Social History Household Members: Family Housing: House Are you a primary skin care specialist to a significant other at home: No Do you presently have visiting nurse or other home services: No Alcohol intake: current Alcohol intake frequency: holidays/special occasions only Patient Tobacco Use Status: Current everyday Tobacco user Tobacco use type: Cigarette Cigarette Packs Per Day: 1.0 Cigarettes Per Day: 20.0 e-Cigarette/Vaping Use: Never Used Use of substances other than those prescribed or required for medical reasons: No Have you been hit, kicked, punched, or otherwise hurt by someone within the past year? If so, by whom?: No Are you DNR?: No Advance Directives: No Advance Directives Information Provided: Yes Advance Directives on File: No Recently lost weight without trying: No Eating poorly because of decreased appetite: No Nutrition Risks: No Nutritional Risk service: No Current occupational status: disabled Cognitive needs: No Hearing needs: No Vision needs: Yes Meds Allergies Allergy/AdvReac Type Severity Reaction Status Date / Time No Known Allergies Allergy Verified 06/01/24 13:03 Home Medications ?Medication ?Instructions ?Recorded ?Confirmed ?Last Taken ?Type leuprolide acetate (6 month) 45 mg 45 mg subcut [id number] 09/09/23 05/24/24 Unknown History (6 month) subcutaneous syringe ([employer]) gabapentin 300 mg capsule 300 mg PO BEDTIME 05/24/24 05/24/24 Unknown History sucralfate 100 mg/mL oral 10 ml PO BID PRN Acid Reflux 05/24/24 05/24/24 Unknown History suspension (Carafate) Exam Airway Mallampati Class: II (caps front) TM Dist: >3cm Neck ROM: Full Heart: rrr Lungs: cta Assessment and Plan Assessment Anesthesia Assessment: Anesthesia Plan Discussed Final Anesthetic Review NPO: Yes ASA Class: III Final Preanesthetic Review: No Changes in Pt Med Stat, Meds/Allgs Chart Reviewed and Consent Obtained/Reviewed Patient Risk: Low Procedure Risk: Low Anesthetic Plan Anesthetic Plan: MAC: Disposition: Standard PACU
[2024-06-04 07:47] VITALS: BMI 23.3
[2024-06-04 08:04] VITALS: BP 123/77; PULSE 79; RESP 16; TEMP 36.2; O2SAT 96
[2024-06-04] MEDS: Lactated Ringers 1,000 ML 100 ML IVCONT (08:06)
--- NOTE | 2024-06-04 08:34 | MHC.SHP ---
Pre-Procedural Eval Section A - 24 Hr Update-Section A only Date of Service: 06/04/24 Section B - Complete if H&P > 30 days Chief Complaint: Noninfective gastroenteritis and colitis, unspecif Details of Present Illness: has hx of colitis last year Present Medications: see Short Stay Collaborative assessment Medical History: Significant History (Vit d def, prostate ca, smoker) History of Previous Operations: No relevant previous surgery Allergies: Allergies Allergy/AdvReac Type Severity Reaction Status Date / Time No Known Allergies Allergy Verified 06/01/24 13:03 Review of Systems Sugical H&P ROS: Negative: Constitution, Cardiovascular, Respiratory, Neurological, Psychiatric, Hem-Onc, Allergic/Immunologic, Gastrointestinal, Genitourinary, Musculoskeletal, Integumentary, Endocrine and Eyes/Ears/Nose/Throat Exam Surgical H&P Exam: Normal: HEENT, Normal: Heart, Normal: Lungs, Normal: Extremities, Normal: Abdomen, Normal: Skin and Normal: Neurological Plan Diagnosis/Plan: Unchanged I have reviewed the history and physical and performed a pertinent physical examination on my patient. No changes have occurred unless specified. Time Spent With Patient Time: Total time managing care of this patient today ____ minutes.
--- NOTE | 2024-06-04 09:02 | W.PM.OPN ---
Operative Note Operative Note Date of Service: 06/04/24 Narrative: Preop Diagnosis: History of colitis with ulcer Postop diagnosis: 1. Scattered diverticulosis of the colon 2. Small polyp in the rectum at level 10 cm about 4 mm in size 3. Internal external hemorrhoids with prolapse Procedure: colonoscopy with polypectomy using cold forceps Surgeon: Carlos Chaney MD The patient is a 68-year-old male who had a colonoscopy last year with note of an ulcer in the area of the proximal transverse colon. Biopsies of this showed inflammatory changes consistent with colitis. I had recommended repeating the colonoscopy within 1 year. He understood the technique of the planned procedure as well as the risks, benefits, and alternatives The patient was brought to the operating room and placed in left lateral decubitus position under monitored anesthesia care. A surgical time-out was done. A full digital rectal exam was done and this did not reveal any significant anal lesions. He did have internal external hemorrhoids with some prolapse. The tip of the Olympus colonoscope was gently introduced through the anal orifice advanced with insufflation all the way to the cecum. The cecum was intubated. The cecum was identified by visualization of the ileocecal valve as well as the appendiceal orifice. The cecal mucosa was unremarkable. The scope was gradually withdrawn with careful examination of the entire colonic mucosa being done with scope withdrawal. The patient had adequate bowel prep so it was unlikely that any lesion may have been missed. He had diffuse diverticulosis. The area of the ulcer was noted as this had tattoo markings. There was no ulcer seen there is no inflammatory changes. The rectum was reached and there was a small polyp, about 3-4 mm at level 10 cm. This was removed using multiple bites of the cold forceps. The anal canal was unremarkable except for internal external hemorrhoids with some prolapse. The scope was then withdrawn completely with desufflation. The patient tolerated procedure well. There were no immediate complications. Depending on his path report, his next colonoscopy may be in the next 10 years.
[2024-06-04 09:07] VITALS: BP 89/57; PULSE 64; RESP 16; TEMP 36.1; O2SAT 93
[2024-06-04 09:22] VITALS: BP 104/59; PULSE 67; RESP 16; TEMP 36.1; O2SAT 95
== END 2024-06-04 09:45 | disposition home or self-care (01) ==
PROVIDERS: PCP Internal Medicine; Visit Provider Surgery
PROC: 0DBE8ZZ Excision of Large Intestine, Via Natural or Artificial Opening Endoscopic (ICD-10-PCS; CPT 45380; principal; 2024-06-04 08:30)
DX: Z12.11 Encounter for screening for malignant neoplasm of colon (principal); K52.9 Noninfective gastroenteritis and colitis, unspecified; Z87.19 Personal history of other diseases of the digestive system; K62.1 Rectal polyp; K57.30 Diverticulosis of large intestine without perforation or abscess without bleeding; K64.8 Other hemorrhoids; K64.4 Residual hemorrhoidal skin tags; K59.03 Drug induced constipation; I10 Essential (primary) hypertension; J44.9 Chronic obstructive pulmonary disease, unspecified; Z79.51 Long term (current) use of inhaled steroids; Z79.899 Other long term (current) drug therapy; F17.210 Nicotine dependence, cigarettes, uncomplicated; Z98.890 Other specified postprocedural states
CPT/HCPCS: 45380; 88305; J2704

== ENCOUNTER → 2024-06-04 07:33 | Outpatient (BNV) | payer MEDICARE, SELFPAY | PROVIDERS: PCP Internal Medicine; Visit Provider Surgery | DX: K52.9 Noninfective gastroenteritis and colitis, unspecified (principal); K63.5 Polyp of colon | CPT/HCPCS: 45380 ==

== ENCOUNTER 2024-06-09 09:41 | Outpatient (AMB) | payer MEDICARE, SELFPAY ==
--- NOTE | 2024-06-09 09:44 | MHC.PC.OV ---
Vital Signs 06/09/24 09:48 Height 5 ft 11 in Weight 170 lb 8 oz BMI 23.8 BP 122/68 Blood Pressure Location Rt brachial Position Sitting Pulse 76 Pulse Source Pulse Oximeter Pulse Oximetry (%) 98 Oxygen Delivery Method Room Air Intake Visit Reasons: Medication follow up Allergies No Known Allergies Allergy (Verified 06/09/24 09:53) Medication List - Last Reconciled 06/09/24 by Lloyd Woods MD albuterol sulfate 90 mcg/actuation (ProAir HFA) 1 inh inhalation QID PRN 30 days amlodipine 10 mg PO DAILY 90 days Anoro Ellipta 62.5-25 mcg/actuation (umeclidinium-vilanterol) 1 inh inhalation DAILY NS cholecalciferol (vitamin D3) 25 mcg PO DAILY 90 days cyclobenzaprine 5 mg PO BEDTIME PRN 30 days finasteride 5 mg PO DAILY 90 days gabapentin 300 mg PO BEDTIME ipratropium-albuterol 0.5 mg-3 mg(2.5 mg base)/3 mL 3 mL inhalation Q6-8H PRN 30 days leuprolide acetate (6 month) (Eligard) 45 mg subcut [id number] lisinopril 40 mg PO DAILY 90 days montelukast 10 mg PO DAILY 90 days omeprazole 20 mg PO DAILY oxycodone 10 mg PO TID 30 days sodium,potassium,mag sulfates 17.5-3.13-1.6 gram (Suprep Bowel Prep Kit) DILUTE; drink full amount early evening before AND next morning at least 2 hr before procedure; follow w 960 mL water PO sucralfate (Carafate) 10 mL PO BID PRN Tobacco use date assessed: 06/09/24 Fall risk assessment: No Falls in past year Last assessed Fall Risk: 06/09/24 Dental Screening Dental Screen Date: 06/09/24 Did you have a dental visit in the last 12 months?: Yes Did you have a dental problem in the last 6 months where you did not have access to dental care?: No Was dental information given to patient?: Patient has dentist HPI Medication follow up HPI Details Patient is a 68-year-old gentleman came in today for his pain medication refill Few days ago why helping his daughter move he tripped and fell And before that he also fell from ladder I have discussed that several time with the patient, he need to realize his limitations He already have surgeries on his back and neck. Now complaining of pain, taking oxycodone as prescribed I have printed his x-ray which did not show anything new Patient would like to discuss it with his neurosurgery Dr. Lopez Patient suffers from COPD secondary to years of smoking, and he is still smoking Patient is seeing program research specialist for the management Patient is going through radiation therapy for prostate cancer Also suffers from low testosterone level, and is getting treatment through Urology GERD is stable blood pressure is controlled, continue lisinopril 40 mg Allergies are stable patient is on Zyrtec, and montelukast [facility] Medical History Arthritis Back pain Hx of radiation therapy HTN (hypertension) Colitis Colon cancer screening Nocturia Heartburn Muscle spasms of neck Pain management Opioid dependence Hypertension, essential GERD (gastroesophageal reflux disease) Smokers' cough Drug induced constipation COPD (chronic obstructive pulmonary disease) Tobacco abuse Asthma Failed back syndrome Surgical History History of colonoscopy (04/10/10) History of rotator cuff surgery History of repair of laceration History of fusion of cervical spine History of laminectomy Family History Father HTN (hypertension) Lung cancer Mother HTN (hypertension) Dementia Breast cancer Maternal Grandmother No problems noted. Maternal Grandfather No problems noted. Paternal Grandfather No problems noted. Paternal Grandmother No problems noted. Brother Throat cancer Lung cancer Brother No problems noted. Daughter No problems noted. Daughter No problems noted. Sister Ovarian cancer Sister No problems noted. Sister No problems noted. Sister No problems noted. Maternal Aunt Breast cancer Social History Household Members: Family Housing: House Are you a primary animal care assistant to a significant other at home: No Do you presently have visiting nurse or other home services: No Alcohol intake: current Alcohol intake frequency: holidays/special occasions only Patient Tobacco Use Status: Current everyday Tobacco user Tobacco use type: Cigarette Cigarette Packs Per Day: 1.0 Cigarettes Per Day: 20.0 e-Cigarette/Vaping Use: Never Used service: No Current occupational status: disabled Cognitive needs: No Hearing needs: No Vision needs: Yes Questionnaire Thrive Questionnaire Date Thrive assessed: 06/09/24 I am a: Patient What is your living situation today?: I have a steady place to live Within the past 12 months, did the food you bought not last and you didn't have the money to get more?: I choose not to answer this question Within the past 12 months, did you worry whether your food would run out before you got money to buy more?: I choose not to answer this question Do you have trouble paying for medicines?: I choose not to answer this question Do you have trouble getting transportation to medical appointments?: I choose not to answer this question Do you have trouble paying your heating and electricity bill?: I choose not to answer this question Do you have trouble taking care of your child, family member or friend?: I choose not to answer this question Do you have trouble with day-to-day activities such as bathing, preparing meals, shopping, managing finances, etc.?: I choose not to answer this question Are you currently unemployed and looking for a job?: I choose not to answer this question Are you interested in more education?: I choose not to answer this question Please select the resources that you would like help with: Housing/Snf Currently or been in a relationship where the following occur: I choose not to answer THRIVE Score: 0 AUDIT C Alcohol Use Questionnaire (AUDIT-C) 1. How often do you have a drink containing alcohol?: Monthly or less 2. How many drinks containing alcohol do you have on a typical day when you are drinking?: 1 or 2 3. How often do you have six or more drinks on one occasion?: Less than monthly Total Score: 2 Score Reviewed/Action Taken: Yes VIVIANA-7 AMB Questionnaire VIVIANA-7 Date VIVIANA - 7 assessed: 06/09/24 Feeling nervous, anxious, or on edge: 0 = Not at all Not being able to stop or control worryin = Not at all Worrying too much about different things: 0 = Not at all Trouble relaxin = Not at all Being so restless that it is hard to sit still: 0 = Not at all Becoming easily annoyed or irritable: 0 = Not at all Feeling afraid as if something awful might happen: 0 = Not at all Total VIVIANA-7 score (0-4 normal; 5-9 mild; 10-14 moderate; 15-21 severe): 0 Source: Developed by Drs. Juan Motley, Blanca Manzo, Kelton Mooney and colleagues, with an educational homa from [employer]. VIVIANA-7 Assessment Billing VIVIANA-7 Assessment Tool: VIVIANA-7 Assessment 62072 Review of Systems Const Denies chills and Denies fever(s) ENT Denies epistaxis and Denies nasal discharge Card Denies chest pain Resp Denies chest congestion, Denies cough and Denies hemoptysis GI Denies diarrhea and Denies nausea Skin/Breast Denies rash Neuro Reports no additional complaints Psych Reports no additional complaints Endo Reports no additional complaints Physical exam (Primary Care) Vital Signs: Last Vital Signs Pulse 76 06/09/24 09:48 BP 122/68 06/09/24 09:48 Pulse Ox 98 06/09/24 09:48 Oxygen Delivery Method Room Air 06/09/24 09:48 BMI result Body Mass Index 23.8 Tobacco/Smoking Status: Tobacco use Status Tobacco use date assessed 06/09/24 06/09/24 09:54 Patient Tobacco Use Status Current everyday Tobacco 06/09/24 09:45 Tobacco use type Cigarette 06/09/24 09:45 e-Cigarette/Vaping Use Never Used 06/09/24 09:45 Thrive Assessment: Date of Thrive Assessment Date Thrive assessed 06/09/24 06/09/24 09:54 Currently or been in a relationship where the following occur: I choose not to answer Const General: cooperative, comfortable and no acute distress Orientation/consciousness: patient oriented x3 [facility] Head: Yes normocephalic Eyes General: appearance normal, both eyes and all related structures Neck Neck: Yes supple Resp Effort & Inspection: normal respiratory effort, no cough and no stridor Cardio Rhythm: regular rhythm Heart sounds: S1 normal heart sound present and S2 normal heart sound present Skin General skin exam: turgor normal Neuro General: patient oriented x3, tone normal and moves all extremities Extrem Right lower extremity: no edema Left lower extremity: no edema Assessment and Plan Assessment & Plan (1) Hypertension, essential: Code(s): I10 - Essential (primary) hypertension (2) Failed back syndrome: Code(s): M96.1 - Postlaminectomy syndrome, not elsewhere classified (3) COPD (chronic obstructive pulmonary disease): Code(s): J44.9 - Chronic obstructive pulmonary disease, unspecified Qualifiers: COPD type: emphysema Emphysema type: panlobular Qualified Code(s): J43.1 - Panlobular emphysema (4) GERD (gastroesophageal reflux disease): Code(s): K21.9 - Gastro-esophageal reflux disease without esophagitis Qualifiers: Esophagitis presence: without esophagitis Qualified Code(s): K21.9 - Gastro-esophageal reflux disease without esophagitis (5) Pain management: Code(s): R52 - Pain, unspecified (6) Opioid dependence: Comment: CONTROLLED NATURE OF MEDICATION WAS DISCUSSED, IT IS IMPORTANT TO NOTIFY ME OF CHANGE OF PHARMACY, OR IF TRAVELING. DO NOT SHARE THE MEDICATION WITH ANYBODY, KEEP IT SAFE AWAY FROM THE HANDS OF SMALL CHILDREN, AND ONLY TAKE IT PRESCRIBED. THIS MEDICATION HAVE A TENDENCY TO BE ABUSED, HABIT-FORMING, AND IT CAN CAUSE SEVERE CONSTIPATION ALONG WITH OTHER ALLERGIC REACTIONS. LONG-TERM USE OF NARCOTIC MEDICATIONS HAVE SHOWN TO INCREASE SENSITIVITY TO PAIN. Code(s): F11.20 - Opioid dependence, uncomplicated Qualifiers: Substance use status: uncomplicated Qualified Code(s): F11.20 - Opioid dependence, uncomplicated (7) Nicotine dependence: Code(s): F17.200 - Nicotine dependence, unspecified, uncomplicated Qualifiers: Nicotine product type: cigarettes Substance use status: uncomplicated Qualified Code(s): F17.210 - Nicotine dependence, cigarettes, uncomplicated (8) Environmental allergies: Code(s): Z91.09 - Other allergy status, other than to drugs and biological substances (9) Smokers' cough: Code(s): J41.0 - Simple chronic bronchitis (10) Impaired fasting blood sugar: Code(s): R73.01 - Impaired fasting glucose Plan Patient is a 68-year-old gentleman came in today for his pain medication refill Few days ago why helping his daughter move he tripped and fell And before that he also fell from ladder I have discussed that several time with the patient, he need to realize his limitations He already have surgeries on his back and neck. Now complaining of pain, taking oxycodone as prescribed I have printed his x-ray which did not show anything new Patient would like to discuss it with his neurosurgery Dr. Lopez If he continued to have pain I would recommend to switch to fentanyl patch Patient says that he will think about it Patient suffers from COPD secondary to years of smoking, and he is still smoking Patient is seeing program research specialist for the management Patient is going through radiation therapy for prostate cancer Also suffers from low testosterone level, and is getting treatment through Urology GERD is stable blood pressure is controlled, continue lisinopril 40 mg Allergies are stable patient is on Zyrtec, and montelukast Medications: Refilled oxycodone partial refill allowed 10 mg PO TID 90 tabs 0RF pain 30 days F11.20 - Opioid dependence, uncomplicated, M96.1 - Postlaminectomy syndrome, not elsewhere classified, R52 - Pain, unspecified cyclobenzaprine 5 mg PO BEDTIME PRN 30 tabs 0RF muscle spasm 30 days M62.838 - Other muscle spasm, R52 - Pain, unspecified Coding Level of Care Code Est Pt Level 4 (82229) Complex EM visit Add On G2211 Diagnoses Hypertension, essential I10 Failed back syndrome M96.1 Panlobular emphysema J43.1 COPD type: emphysema Emphysema type: panlobular Gastroesophageal reflux disease without esophagitis K21.9 Esophagitis presence: without esophagitis Pain management R52 Uncomplicated opioid dependence F11.20 Substance use status: uncomplicated Cigarette nicotine dependence without complication F17.210 Nicotine product type: cigarettes Substance use status: uncomplicated Environmental allergies Z91.09 Smokers' cough J41.0 Impaired fasting blood sugar R73.01 Additional Codes VIVIANA-7 Assessment Billing - VIVIANA-7 Assessment Tool: VIVIANA-7 Assessment [id number] ([id number])
[2024-06-09 09:48] VITALS: BP 122/68; PULSE 76; O2SAT 98; BMI 23.8
== END 2024-06-09 10:06 | disposition home or self-care (01) ==
PROVIDERS: PCP Internal Medicine; Visit Provider Internal Medicine
DX: I10 Essential (primary) hypertension (principal); J43.1 Panlobular emphysema; F11.20 Opioid dependence, uncomplicated; J41.0 Simple chronic bronchitis; M96.1 Postlaminectomy syndrome, not elsewhere classified; K21.9 Gastro-esophageal reflux disease without esophagitis; R52 Pain, unspecified; F17.210 Nicotine dependence, cigarettes, uncomplicated; Z91.09 Other allergy status, other than to drugs and biological substances; R73.01 Impaired fasting glucose
CPT/HCPCS: 99214; G2211

== ENCOUNTER 2024-06-21 08:33 | Outpatient (AMB) | payer MEDICARE, MEDICAID, SELFPAY ==
[2024-06-21 08:38] VITALS: BMI 23.8
--- NOTE | 2024-06-21 08:38 | MHC.OFFVIS ---
Vital Signs 06/21/24 08:38 Height 5 ft 11 in Weight 170 lb 7.982 oz BMI 23.8 Intake Visit Reasons: s/p colonoscopy Intake Note: This patient presents for follow-up status post colonoscopy. Pt c/o; reports no complaints pertaining to procedure. Staff Counselor Required: No Accompanied by: Self / Same As Patient Allergies No Known Allergies Allergy (Verified 06/21/24 08:39) HPI HPI s/p colonoscopy: Details: He had undergone colonoscopy for screening last 06/04/2024. He tolerated the procedure well. He denies complaints at this time. [facility] Medical History Arthritis Back pain Hx of radiation therapy HTN (hypertension) Colitis Colon cancer screening Nocturia Heartburn Muscle spasms of neck Pain management Opioid dependence Hypertension, essential GERD (gastroesophageal reflux disease) Smokers' cough Drug induced constipation COPD (chronic obstructive pulmonary disease) Tobacco abuse Asthma Failed back syndrome Surgical History H/O colonoscopy (~06/04/24) History of colonoscopy (04/10/10) History of rotator cuff surgery History of repair of laceration History of fusion of cervical spine History of laminectomy Family History Father HTN (hypertension) Lung cancer Mother HTN (hypertension) Dementia Breast cancer Maternal Grandmother No problems noted. Maternal Grandfather No problems noted. Paternal Grandfather No problems noted. Paternal Grandmother No problems noted. Brother Throat cancer Lung cancer Brother No problems noted. Daughter No problems noted. Daughter No problems noted. Sister Ovarian cancer Sister No problems noted. Sister No problems noted. Sister No problems noted. Maternal Aunt Breast cancer Social History Household Members: Family Housing: House Are you a primary coronary care unit nurse to a significant other at home: No Do you presently have visiting nurse or other home services: No Alcohol intake: current Alcohol intake frequency: holidays/special occasions only Patient Tobacco Use Status: Current everyday Tobacco user Tobacco use type: Cigarette Cigarette Packs Per Day: 1.0 Cigarettes Per Day: 20.0 e-Cigarette/Vaping Use: Never Used service: No Current occupational status: disabled Cognitive needs: No Hearing needs: No Vision needs: Yes Review of Systems Const Denies chills and Denies fever(s) Card Denies chest pain, Denies dyspnea and Denies dyspnea on exertion Resp Denies cough, Denies dyspnea and Denies dyspnea on exertion GI Denies hematochezia and Denies change in bowel habits Denies hematuria and Denies difficulty urinating Musc Denies back pain and Denies limited range of motion Neuro Denies focal weakness and Denies convulsions Psych Denies depression and Denies mood swings Physical Exam Vital Signs: BMI result Body Mass Index 23.8 Const General: comfortable and no acute distress Resp Effort & Inspection: normal respiratory effort GI Palpation (GI): Soft to palpation, not firm and nontender Assessment & Plan Assessment & Plan (1) Colon cancer screening: Comment: Screening colonoscopy Code(s): Z12.11 - Encounter for screening for malignant neoplasm of colon Category: Medical Plan: Status post colonoscopy. I removed 1 small polyp which was hyperplastic polyp on pathology. He has some diverticulosis as well as hemorrhoids. His next colonoscopy may be in the next 10 years. He can follow up on a p.r.n. basis. Coding Level of Care Code Global (47437) Diagnoses Colon cancer screening Z12.11
== END 2024-06-21 08:52 | disposition home or self-care (01) ==
PROVIDERS: PCP Internal Medicine; Visit Provider Surgery
DX: D12.5 Benign neoplasm of sigmoid colon (principal); Z48.89 Encounter for other specified surgical aftercare
CPT/HCPCS: 99212

== ENCOUNTER → 2024-06-21 08:33 | Outpatient (BNVA) | payer MEDICARE, SELFPAY | PROVIDERS: PCP Internal Medicine; Visit Provider Surgery | DX: Z12.11 Encounter for screening for malignant neoplasm of colon (principal) | CPT/HCPCS: 99212 ==

== ENCOUNTER 2024-07-07 10:07 | Outpatient (AMB) | payer MEDICARE, SELFPAY ==
[2024-07-07 10:10] VITALS: BP 130/78; PULSE 60; O2SAT 98; BMI 23.8
--- NOTE | 2024-07-07 10:11 | A.OFFPC_ITS ---
Vital Signs 3 07/07/24 10:10 Height 5 ft 11 in Weight 171 lb BMI 23.8 BP 130/78 Blood Pressure Location Lt brachial Position Sitting Pulse 60 Pulse Source Pulse Oximeter Pulse Oximetry (%) 98 Oxygen Delivery Method Room Air Intake Visit Reasons: med f/u Allergies No Known Allergies Allergy (Verified 07/07/24 10:11) Medication List - Last Reconciled 07/07/24 by Lloyd Woods MD albuterol sulfate 90 mcg/actuation (ProAir HFA) 1 inh inhalation QID PRN 30 days amlodipine 10 mg PO DAILY 90 days Anoro Ellipta 62.5-25 mcg/actuation (umeclidinium-vilanterol) 1 inh inhalation DAILY NS cholecalciferol (vitamin D3) 25 mcg PO DAILY 90 days cyclobenzaprine 5 mg PO BEDTIME PRN 30 days finasteride 5 mg PO DAILY 90 days gabapentin 300 mg PO BEDTIME ipratropium-albuterol 0.5 mg-3 mg(2.5 mg base)/3 mL 3 mL inhalation Q6-8H PRN 30 days leuprolide acetate (6 month) (Eligard) 45 mg subcut [id number] lisinopril 40 mg PO DAILY 90 days montelukast 10 mg PO DAILY 90 days omeprazole 20 mg PO DAILY oxycodone 10 mg PO TID 30 days sodium,potassium,mag sulfates 17.5-3.13-1.6 gram (Suprep Bowel Prep Kit) DILUTE; drink full amount early evening before AND next morning at least 2 hr before procedure; follow w 960 mL water PO sucralfate (Carafate) 10 mL PO BID PRN Tobacco use date assessed: 06/09/24 Dental Screening Dental Screen Date: 06/09/24 HPI med f/u 2 HPI0 Details Patient is a 68-year-old gentleman came in today for his pain medication refill Patient has prostate cancer and is going through radiation therapy Last session he was given injection in his right arm which seems to be infected now Wound was covered with large Band-Aid, there is no discharge however skin is slightly open. There is some erythema surrounding. Antibiotic sent Failed back syndrome: Patient is on oxycodone 10 mg 3 times a day along with gabapentin He is complying with the treatment plan, pain contract up-to-date Patient suffers from COPD secondary to years of smoking, and he is still smoking Patient is seeing technical maintenance specialist for the management Patient is going through radiation therapy for prostate cancer Also suffers from low testosterone level, and is getting treatment through Urology GERD is stable blood pressure is controlled, continue lisinopril 40 mg Allergies are stable patient he has stopped taking Zyrtec, taking montelukast only Patient says that does Zyrtec was not helping as he continued to feel congested in his nose and chest Patient is established with technical maintenance specialist for his COPD Have sent Flonase nasal spray for his nasal congestion Labs to be done today, due for urine drug screen as well Pain contract renewed Blood pressure is stable [facility] Medical History Arthritis Back pain Hx of radiation therapy HTN (hypertension) Colitis Colon cancer screening Nocturia Heartburn Muscle spasms of neck Pain management Opioid dependence Hypertension, essential GERD (gastroesophageal reflux disease) Smokers' cough Drug induced constipation COPD (chronic obstructive pulmonary disease) Tobacco abuse Asthma Failed back syndrome Surgical History H/O colonoscopy (~06/04/24) History of colonoscopy (04/10/10) History of rotator cuff surgery History of repair of laceration History of fusion of cervical spine History of laminectomy Family History Father HTN (hypertension) Lung cancer Mother HTN (hypertension) Dementia Breast cancer Maternal Grandmother No problems noted. Maternal Grandfather No problems noted. Paternal Grandfather No problems noted. Paternal Grandmother No problems noted. Brother Throat cancer Lung cancer Brother No problems noted. Daughter No problems noted. Daughter No problems noted. Sister Ovarian cancer Sister No problems noted. Sister No problems noted. Sister No problems noted. Maternal Aunt Breast cancer Social History Household Members: Family Housing: House Are you a primary career and guidance counselor to a significant other at home: No Do you presently have visiting nurse or other home services: No Alcohol intake: current Alcohol intake frequency: holidays/special occasions only Patient Tobacco Use Status: Current everyday Tobacco user Tobacco use type: Cigarette Cigarette Packs Per Day: 1.0 Cigarettes Per Day: 20.0 e-Cigarette/Vaping Use: Never Used service: No Current occupational status: disabled Cognitive needs: No Hearing needs: No Vision needs: Yes Questionnaire PHQ-9 Over the last 2 weeks, how often have you been bothered by any of the following problems? 1. Little interest or pleasure in doing things: not at all 2. Feeling down, depressed, or hopeless: not at all 3. Trouble falling or staying asleep, or sleeping too much: not at all 4. Feeling tired or having little energy: not at all 5. Poor appetite or overeating: not at all 6. Feeling bad about yourself - or that you are a failure or have let yourself or your family down: not at all 7. Trouble concentrating on things, such as reading the newspaper or watching television: not at all 8. Moving or speaking so slowly that other people could have noticed. Or the opposite - being so fidgety or restless that you have been moving around a lot more than usual: not at all 9. Thoughts that you would be better off or of hurting yourself in some way: not at all Total score: 0 Depression Screening Interpretation: Negative Depression Screening Done: Yes 55466 - PHQ-9 Billing: Yes Source: Developed by Drs. Juan Motley, Blanca Manzo, Kelton Mooney and colleagues, with an educational homa from [employer]. Thrive Questionnaire Date Thrive assessed: 06/09/24 I am a: Patient What is your living situation today?: I have a steady place to live Within the past 12 months, did the food you bought not last and you didn't have the money to get more?: I choose not to answer this question Within the past 12 months, did you worry whether your food would run out before you got money to buy more?: I choose not to answer this question Do you have trouble paying for medicines?: I choose not to answer this question Do you have trouble getting transportation to medical appointments?: I choose not to answer this question Do you have trouble paying your heating and electricity bill?: I choose not to answer this question Do you have trouble taking care of your child, family member or friend?: I choose not to answer this question Do you have trouble with day-to-day activities such as bathing, preparing meals, shopping, managing finances, etc.?: I choose not to answer this question Are you currently unemployed and looking for a job?: I choose not to answer this question Are you interested in more education?: I choose not to answer this question Please select the resources that you would like help with: None Currently or been in a relationship where the following occur: I choose not to answer THRIVE Score: 0 AUDIT C Alcohol Use Questionnaire (AUDIT-C) 1. How often do you have a drink containing alcohol?: Monthly or less 2. How many drinks containing alcohol do you have on a typical day when you are drinking?: 1 or 2 3. How often do you have six or more drinks on one occasion?: Less than monthly Total Score: 2 VIVIANA-7 AMB Questionnaire VIVIANA-7 Date VIVIANA - 7 assessed: 06/09/24 Feeling nervous, anxious, or on edge: 0 = Not at all Not being able to stop or control worryin = Not at all Worrying too much about different things: 0 = Not at all Trouble relaxin = Not at all Being so restless that it is hard to sit still: 0 = Not at all Becoming easily annoyed or irritable: 0 = Not at all Feeling afraid as if something awful might happen: 0 = Not at all Total VIVIANA-7 score (0-4 normal; 5-9 mild; 10-14 moderate; 15-21 severe): 0 Source: Developed by Drs. Juan Motley, Blanca Manzo, Kelton Mooney and colleagues, with an educational homa from [employer]. Review of Systems Const Denies chills and Denies fever(s) ENT Denies epistaxis and Denies nasal discharge Card Denies chest pain Resp Denies hemoptysis GI Denies diarrhea and Denies nausea Skin/Breast Denies rash Neuro Reports no additional complaints Psych Reports no additional complaints Endo Reports no additional complaints Physical exam (Primary Care) Vital Signs: Last Vital Signs Pulse 60 07/07/24 10:10 BP 130/78 07/07/24 10:10 Pulse Ox 98 07/07/24 10:10 Oxygen Delivery Method Room Air 07/07/24 10:10 BMI result Body Mass Index 23.8 Tobacco/Smoking Status: Tobacco use Status Tobacco use date assessed 06/09/24 06/10/24 14:23 Patient Tobacco Use Status Current everyday Tobacco 06/09/24 09:45 Tobacco use type Cigarette 06/09/24 09:45 e-Cigarette/Vaping Use Never Used 06/09/24 09:45 Depression Screening Interpretation: Negative Thrive Assessment: Date of Thrive Assessment Date Thrive assessed 06/09/24 06/10/24 14:23 Currently or been in a relationship where the following occur: I choose not to answer Const General: cooperative, comfortable and no acute distress Orientation/consciousness: patient oriented x3 HENMT Head: Yes normocephalic Eyes General: appearance normal, both eyes and all related structures Neck Neck: Yes supple Resp Other: Mild wheezing right lower lung posteriorly Effort & Inspection: normal respiratory effort, no cough and no stridor Cardio Rhythm: regular rhythm Heart sounds: S1 normal heart sound present and S2 normal heart sound present Skin General skin exam: turgor normal Full body images: 2 1. Erythematous area with open skin in the middle, no pus was seen, area was covered with Band-Aid and antibiotic prescribed Neuro General: patient oriented x3, tone normal and moves all extremities Extrem Right lower extremity: no edema Left lower extremity: no edema Assessment and Plan Assessment & Plan (1) Cellulitis of arm, right: Code(s): L03.113 - Cellulitis of right upper limb (2) Hypertension, essential: Code(s): I10 - Essential (primary) hypertension (3) Failed back syndrome: Code(s): M96.1 - Postlaminectomy syndrome, not elsewhere classified (4) COPD (chronic obstructive pulmonary disease): Code(s): J44.9 - Chronic obstructive pulmonary disease, unspecified Qualifiers: COPD type: emphysema Emphysema type: panlobular Qualified Code(s): J 43.1 - Panlobular emphysema (5) GERD (gastroesophageal reflux disease): Code(s): K21.9 - Gastro-esophageal reflux disease without esophagitis Qualifiers: Esophagitis presence: without esophagitis Qualified Code(s): K21.9 - Gastro-esophageal reflux disease without esophagitis (6) Pain management: Code(s): R52 - Pain, unspecified (7) Opioid dependence: Comment: CONTROLLED NATURE OF MEDICATION WAS DISCUSSED, IT IS IMPORTANT TO NOTIFY ME OF CHANGE OF PHARMACY, OR IF TRAVELING. DO NOT SHARE THE MEDICATION WITH ANYBODY, KEEP IT SAFE AWAY FROM THE HANDS OF SMALL CHILDREN, AND ONLY TAKE IT PRESCRIBED. THIS MEDICATION HAVE A TENDENCY TO BE ABUSED, HABIT-FORMING, AND IT CAN CAUSE SEVERE CONSTIPATION ALONG WITH OTHER ALLERGIC REACTIONS. LONG-TERM USE OF NARCOTIC MEDICATIONS HAVE SHOWN TO INCREASE SENSITIVITY TO PAIN. Code(s): F11.20 - Opioid dependence, uncomplicated Qualifiers: Substance use status: uncomplicated Qualified Code(s): F11.20 - Opioid dependence, uncomplicated (8) Nicotine dependence: Code(s): F17.200 - Nicotine dependence, unspecified, uncomplicated Qualifiers: Nicotine product type: cigarettes Substance use status: uncomplicated Qualified Code(s): F17.210 - Nicotine dependence, cigarettes, uncomplicated (9) Environmental allergies: Code(s): Z91.09 - Other allergy status, other than to drugs and biological substances (10) Smokers' cough: Code(s): J41.0 - Simple chronic bronchitis (11) Impaired fasting blood sugar: Code(s): R73.01 - Impaired fasting glucose Plan Patient is a 68-year-old gentleman came in today for his pain medication refill Patient has prostate cancer and is going through radiation therapy Last session he was given injection in his right arm which seems to be infected now Wound was covered with large Band-Aid, there is no discharge however skin is slightly open. There is some erythema surrounding. Antibiotic sent Failed back syndrome: Patient is on oxycodone 10 mg 3 times a day along with gabapentin He is complying with the treatment plan, pain contract up-to-date Patient suffers from COPD secondary to years of smoking, and he is still smoking Patient is seeing technical maintenance specialist for the management Patient is going through radiation therapy for prostate cancer Also suffers from low testosterone level, and is getting treatment through Urology GERD is stable blood pressure is controlled, continue lisinopril 40 mg Allergies are stable patient he has stopped taking Zyrtec, taking montelukast only Patient says that does Zyrtec was not helping as he continued to feel congested in his nose and chest Patient is established with technical maintenance specialist for his COPD Have sent Flonase nasal spray for his nasal congestion Labs to be done today, due for urine drug screen as well Pain contract renewed Blood pressure is stable Orders: Orders 2 Complete Blood Count Auto Diff Today F11.20 - Opioid dependence, uncomplicated, F17.210 - Nicotine dependence, cigarettes, uncomplicated, I10 - Essential (primary) hypertension, J41.0 - Simple chronic bronchitis, J43.1 - Panlobular emphysema, K21.9 - Gastro-esophageal reflux disease without esophagitis, M96.1 - Postlaminectomy syndrome, not elsewhere classified, R52 - Pain, unspecified, R73.01 - Impaired fasting glucose, Z91.09 - Other allergy status, other than to drugs and biological substances Comprehensive Met. Panel Today F11.20 - Opioid dependence, uncomplicated, F17.210 - Nicotine dependence, cigarettes, uncomplicated, I10 - Essential (primary) hypertension, J41.0 - Simple chronic bronchitis, J43.1 - Panlobular emphysema, K21.9 - Gastro-esophageal reflux disease without esophagitis, M96.1 - Postlaminectomy syndrome, not elsewhere classified, R52 - Pain, unspecified, R73.01 - Impaired fasting glucose, Z91.09 - Other allergy status, other than to drugs and biological substances LDL Cholesterol Direct Today F11.20 - Opioid dependence, uncomplicated, F17.210 - Nicotine dependence, cigarettes, uncomplicated, I10 - Essential (primary) hypertension, J41.0 - Simple chronic bronchitis, J43.1 - Panlobular emphysema, K21.9 - Gastro-esophageal reflux disease without esophagitis, M96.1 - Postlaminectomy syndrome, not elsewhere classified, R52 - Pain, unspecified, R73.01 - Impaired fasting glucose, Z91.09 - Other allergy status, other than to drugs and biological substances Drug Screen Urine Today F11.20 - Opioid dependence, uncomplicated, F17.210 - Nicotine dependence, cigarettes, uncomplicated, I10 - Essential (primary) hypertension, J41.0 - Simple chronic bronchitis, J43.1 - Panlobular emphysema, K21.9 - Gastro-esophageal reflux disease without esophagitis, M96.1 - Postlaminectomy syndrome, not elsewhere classified, R52 - Pain, unspecified, R73.01 - Impaired fasting glucose, Z91.09 - Other allergy status, other than to drugs and biological substances Vitamin D 25-OH (D2 and D3) Today F11.20 - Opioid dependence, uncomplicated, F17.210 - Nicotine dependence, cigarettes, uncomplicated, I10 - Essential (primary) hypertension, J41.0 - Simple chronic bronchitis, J43.1 - Panlobular emphysema, K21.9 - Gastro-esophageal reflux disease without esophagitis, M96.1 - Postlaminectomy syndrome, not elsewhere classified, R52 - Pain, unspecified, R73.01 - Impaired fasting glucose, Z91.09 - Other allergy status, other than to drugs and biological substances Opiates GCMS Expanded, Ur Today F11.20 - Opioid dependence, uncomplicated, F17.210 - Nicotine dependence, cigarettes, uncomplicated, I10 - Essential (primary) hypertension, J41.0 - Simple chronic bronchitis, J43.1 - Panlobular emphysema, K21.9 - Gastro-esophageal reflux disease without esophagitis, M96.1 - Postlaminectomy syndrome, not elsewhere classified, R52 - Pain, unspecified, R73.01 - Impaired fasting glucose, Z91.09 - Other allergy status, other than to drugs and biological substances Medications: New 2 fluticasone furoate 27.5 mcg/actuation (Flonase Sensimist) into each nostril 1 spray intranasal DAILY 30 days 9.1 mL 0RF amoxicillin-pot clavulanate 500-125 mg (Augmentin) 1 tab PO Q12H 7 days 14 tabs 0RF Refilled 2 oxycodone partial refill allowed 10 mg PO TID 30 days 90 tabs 0RF pain F11.20 - Opioid dependence, uncomplicated, M96.1 - Postlaminectomy syndrome, not elsewhere classified, R52 - Pain, unspecified cyclobenzaprine 5 mg PO BEDTIME 30 days PRN 30 tabs 0RF muscle spasm M62.838 - Other muscle spasm, R52 - Pain, unspecified Coding Level of Care Code Est Pt Level 4 (90443) Complex EM visit Add On G2211 Diagnoses Cellulitis of arm, right L03.113 Hypertension, essential I10 Failed back syndrome M96.1 Panlobular emphysema J43.1 COPD type: emphysema Emphysema type: panlobular Gastroesophageal reflux disease without esophagitis K21.9 Esophagitis presence: without esophagitis Pain management R52 Uncomplicated opioid dependence F11.20 Substance use status: uncomplicated Cigarette nicotine dependence without complication F17.210 Nicotine product type: cigarettes Substance use status: uncomplicated Environmental allergies Z91.09 Smokers' cough J41.0 Impaired fasting blood sugar R73.01
== END 2024-07-07 10:53 | disposition home or self-care (01) ==
PROVIDERS: PCP Internal Medicine; Visit Provider Internal Medicine
DX: L03.113 Cellulitis of right upper limb (principal); I10 Essential (primary) hypertension; M96.1 Postlaminectomy syndrome, not elsewhere classified; J43.1 Panlobular emphysema; K21.9 Gastro-esophageal reflux disease without esophagitis; R52 Pain, unspecified; F11.20 Opioid dependence, uncomplicated; F17.210 Nicotine dependence, cigarettes, uncomplicated; Z91.09 Other allergy status, other than to drugs and biological substances; J41.0 Simple chronic bronchitis; R73.01 Impaired fasting glucose
CPT/HCPCS: 99214; G2211

== ENCOUNTER 2024-07-30 07:59 | Outpatient (AMB) | payer MEDICARE, SELFPAY ==
[2024-07-30 07:59] VITALS: BP 144/90; PULSE 75; O2SAT 99; BMI 24.0
--- NOTE | 2024-07-30 07:59 | A.OFFPC_ITS ---
Vital Signs 3 07/30/24 07:59 Height 5 ft 11 in Weight 172 lb BMI 24.0 BP 144/90 H Blood Pressure Location Rt brachial Position Sitting Pulse 75 Pulse Source Pulse Oximeter Pulse Oximetry (%) 99 Oxygen Delivery Method Room Air Intake Visit Reasons: Stomach concerns Allergies No Known Allergies Allergy (Verified 07/30/24 08:01) Medication List - Last Reconciled 07/30/24 by Lloyd Woods MD albuterol sulfate 90 mcg/actuation (ProAir HFA) 1 inh inhalation QID PRN 30 days amlodipine 10 mg PO DAILY 90 days Anoro Ellipta 62.5-25 mcg/actuation (umeclidinium-vilanterol) 1 inh inhalation DAILY NS cholecalciferol (vitamin D3) 25 mcg PO DAILY 90 days cyclobenzaprine 5 mg PO BEDTIME PRN 30 days finasteride 5 mg PO DAILY 90 days fluticasone furoate 27.5 mcg/actuation (Flonase Sensimist) 1 spray intranasal DAILY 30 days gabapentin 300 mg PO BEDTIME ipratropium-albuterol 0.5 mg-3 mg(2.5 mg base)/3 mL 3 mL inhalation Q6-8H PRN 30 days leuprolide acetate (6 month) (Eligard) 45 mg subcut [id number] lisinopril 40 mg PO DAILY 90 days montelukast 10 mg PO DAILY 90 days omeprazole 20 mg PO DAILY oxycodone 10 mg PO TID 30 days sodium,potassium,mag sulfates 17.5-3.13-1.6 gram (Suprep Bowel Prep Kit) DILUTE; drink full amount early evening before AND next morning at least 2 hr before procedure; follow w 960 mL water PO sucralfate (Carafate) 10 mL PO BID PRN Tobacco use date assessed: 06/09/24 Dental Screening Dental Screen Date: 06/09/24 HPI Stomach concerns 2 HPI0 Details Patient is 69-year-old gentleman who had his birthday 2 days ago, patient drank about 7 8 cans of 8 cans of beer Started having stomach pain which continues He vomited once, and still eating solid food Came in today for evaluation Patient also have hemorrhoids and has been having little bit of blood in his stools There is no fever no chills no Examination there is no pain with deep palpation of left lower quadrant He does have pain epigastrium with pressure and some generalized discomfort all over abdomen Patient was instructed not to eat anything solid, continue clear liquids today and tomorrow And then add semi solid food gradually once start to feel better I have sent Carafate patient is to start taking that q.6 over the weekend Once symptoms improve he may cut down the dose to b.i.d. and then once a day and then stop If symptoms worse in his to go to emergency room [facility] Medical History Arthritis Back pain Hx of radiation therapy HTN (hypertension) Colitis Colon cancer screening Nocturia Heartburn Muscle spasms of neck Pain management Opioid dependence Hypertension, essential GERD (gastroesophageal reflux disease) Smokers' cough Drug induced constipation COPD (chronic obstructive pulmonary disease) Tobacco abuse Asthma Failed back syndrome Surgical History H/O colonoscopy (~06/04/24) History of colonoscopy (04/10/10) History of rotator cuff surgery History of repair of laceration History of fusion of cervical spine History of laminectomy Family History Father HTN (hypertension) Lung cancer Mother HTN (hypertension) Dementia Breast cancer Maternal Grandmother No problems noted. Maternal Grandfather No problems noted. Paternal Grandfather No problems noted. Paternal Grandmother No problems noted. Brother Throat cancer Lung cancer Brother No problems noted. Daughter No problems noted. Daughter No problems noted. Sister Ovarian cancer Sister No problems noted. Sister No problems noted. Sister No problems noted. Maternal Aunt Breast cancer Social History Household Members: Family Housing: House Are you a primary patient care assistant to a significant other at home: No Do you presently have visiting nurse or other home services: No Alcohol intake: current Alcohol intake frequency: holidays/special occasions only Patient Tobacco Use Status: Current everyday Tobacco user Tobacco use type: Cigarette Cigarette Packs Per Day: 1.0 Cigarettes Per Day: 20.0 e-Cigarette/Vaping Use: Never Used service: No Current occupational status: disabled Cognitive needs: No Hearing needs: No Vision needs: Yes Questionnaire Thrive Questionnaire Date Thrive assessed: 06/09/24 VIVIANA-7 AMB Questionnaire VIVIANA-7 Date VIVIANA - 7 assessed: 06/09/24 Source: Developed by Drs. Juan Motley, Blanca Manzo, Kelton Mooney and colleagues, with an educational homa from [employer]. Review of Systems Const Denies chills and Denies fever(s) ENT Denies epistaxis and Denies nasal discharge Card Denies chest pain Resp Denies chest congestion, Denies cough and Denies hemoptysis Skin/Breast Denies rash Neuro Reports no additional complaints Psych Reports no additional complaints Endo Reports no additional complaints Physical exam (Primary Care) Vital Signs: Last Vital Signs Pulse 75 07/30/24 07:59 BP 144/90 H 07/30/24 07:59 Pulse Ox 99 07/30/24 07:59 Oxygen Delivery Method Room Air 07/30/24 07:59 BMI result Body Mass Index 24.0 Tobacco/Smoking Status: Tobacco use Status Tobacco use date assessed 06/09/24 07/30/24 08:02 Patient Tobacco Use Status Current everyday Tobacco 07/30/24 08:02 Tobacco use type Cigarette 07/30/24 08:02 e-Cigarette/Vaping Use Never Used 07/30/24 08:02 Thrive Assessment: Date of Thrive Assessment Date Thrive assessed 06/09/24 07/30/24 08:02 Const General: cooperative and no acute distress Orientation/consciousness: patient oriented x3 HENMT Head: Yes normocephalic Eyes General: appearance normal, both eyes and all related structures Neck Neck: Yes supple Resp Effort & Inspection: normal respiratory effort, no cough and no stridor Cardio Rhythm: regular rhythm Heart sounds: S1 normal heart sound present and S2 normal heart sound present GI Abdomen image: 2 1. Site of pain, bowel sounds positive, no pain with pressure lower left quadrant Skin General skin exam: turgor normal Neuro General: patient oriented x3, tone normal and moves all extremities Extrem Right lower extremity: no edema Left lower extremity: no edema Assessment and Plan Assessment & Plan (1) Acute upper abdominal pain: Code(s): R10.10 - Upper abdominal pain, unspecified Plan Patient is 69-year-old gentleman who had his birthday 2 days ago, patient drank about 7 8 cans of 8 cans of beer Started having stomach pain which continues He vomited once, and still eating solid food Came in today for evaluation Patient also have hemorrhoids and has been having little bit of blood in his stools There is no fever no chills no Examination there is no pain with deep palpation of left lower quadrant He does have pain epigastrium with pressure and some generalized discomfort all over abdomen Patient was instructed not to eat anything solid, continue clear liquids today and tomorrow And then add semi solid food gradually once start to feel better I have sent Carafate patient is to start taking that q.6 over the weekend Once symptoms improve he may cut down the dose to b.i.d. and then once a day and then stop If symptoms worse in his to go to emergency room Medications: Changed 2 From sucralfate (Carafate) 10 mL PO BID PRN Acid Reflux To sucralfate (Carafate) 10 mL PO Q6H 400 mL 0RF Acid Reflux 10 days Coding Level of Care Code Est Pt Level 4 (84659) Diagnoses Acute upper abdominal pain R10.10
== END 2024-07-30 08:26 | disposition home or self-care (01) ==
LOC: HO.HMCC 07:59
PROVIDERS: PCP Internal Medicine; Visit Provider Internal Medicine
DX: R10.10 Upper abdominal pain, unspecified (principal)

== ENCOUNTER → 2024-07-30 07:59 | Outpatient (BNVA) | payer MEDICARE, SELFPAY | PROVIDERS: PCP Internal Medicine; Visit Provider Internal Medicine | DX: R10.10 Upper abdominal pain, unspecified (principal); Z79.899 Other long term (current) drug therapy | CPT/HCPCS: 99212 ==

== ENCOUNTER 2024-08-03 07:34 | Outpatient (REF) | payer MEDICARE, SELFPAY ==
[2024-08-03 10:13] LABS: MANUAL DIFF FLAG NO
[2024-08-03 10:17] LABS: Basophils Percent Auto 0.8 % (0-2); Eosinophils Absolute Auto 0.4 X10*3/uL (0.0-0.4); Eosinophils Percent Auto 6.8 % (0-4); Hematocrit 37.1 % (42.0-52.0); Hemoglobin 12.9 g/dl (14.0-18.0); Imm Gran Abs Auto 0.01 X10*3/uL (0.00-0.03); Imm Gran Pct Auto 0.2 % (0.0-0.4); Lymphocytes Absolute Auto 1.3 X10*3/uL (1.2-4.9); Mean Corpuscular HGB Conc 34.8 g/dl (31.0-36.0); Mean Corpuscular Hemoglobin 33.3 pg (27.0-33.0); Mean Corpuscular Volume 95.9 fL (80.0-98.0); Mean Platelet Volume 9.4 fL (9.4-12.4); Monocytes Absolute Auto 0.4 X10*3/uL (0.1-1.2); Monocytes Percent Auto 7.6 % (2-11); Neutrophils Absolute Auto 3.1 x10*3/uL (2.0-8.3); Neutrophils Percent Auto 59.6 % (45-73); Platelet Count 273 X10*3/uL (160-400); Red Blood Count 3.87 X10*6/uL (4.60-5.80); Red Cell Distribution Width 12.3 % (11.0-16.0); White Blood Count 5.2 X10*3/uL (4.8-10.8)
[2024-08-03 10:25] LABS: Amphetamine Screen Urine Not Detected (Not Detect); Barbiturates, Urine Not Detected (Not Detect); Benzodiazepines Screen Urine Not Detected (Not Detect); Buprenorphine Scr Not Detected (Not Detect); Cannabinoid Screen Urine Not Detected (Not Detect); Cocaine Screen Urine Not Detected (Not Detect); Fentanyl, urine Not Detected (Not Detect); Methadone Screen, Urine Not Detected (Not Detect); Opiate Screen Urine POSITIVE (Not Detect); Oxycodone Screen Urine Positive (Not Detect); Phencyclidine Screen Urine Not Detected (Not Detect)
[2024-08-03 10:50] LABS: Alanine Aminotransferase 12 U/L (0-40); Alkaline Phosphatase 82 U/L (39-117); Anion Gap 10 (12-20); Aspartate Amino Transferase 14 U/L (5-37); Bilirubin Total 0.4 mg/dL (0.0-1.0); Blood Urea Nitrogen 17 mg/dL (9-16); Calcium 9.7 mg/dL (8.4-10.2); Carbon Dioxide 29 mmol/L (22-29); Chloride 103 mmol/L (96-108); Estimated Glomerular Filt Rate > 60; Glucose Random 90 mg/dL (60-115); Potassium 4.1 mmol/L (3.3-5.1); Sodium 138 mmol/L (135-145)
[2024-08-04 19:44] LABS: LDL Cholesterol Direct 103 mg/dL (<100)
[2024-08-06 11:45] LABS: Codeine, Ur NEGATIVE; Hydrocodone, Ur NEGATIVE; Hydromorphone, Ur NEGATIVE; Morphine, Ur NEGATIVE; Norhydrocodone, Ur NEGATIVE
[2024-08-06 11:47] LABS: Noroxycodone, Ur >10000 (H)
[2024-08-07 16:34] LABS: Vitamin D 25-OH, D2 <4 ng/mL; Vitamin D 25-OH, D3 46 ng/mL; Vitamin D 25-OH, Total 46 ng/mL (30-100)
== END 2024-08-03 07:35 | disposition home or self-care (01) ==
LOC: HO.HMGCLDS 07:34
PROVIDERS: PCP Internal Medicine; Visit Provider Internal Medicine
DX: M96.1 Postlaminectomy syndrome, not elsewhere classified (principal); J44.9 Chronic obstructive pulmonary disease, unspecified; J41.0 Simple chronic bronchitis; K21.9 Gastro-esophageal reflux disease without esophagitis; I10 Essential (primary) hypertension; F11.20 Opioid dependence, uncomplicated; R52 Pain, unspecified; J43.1 Panlobular emphysema; Z91.09 Other allergy status, other than to drugs and biological substances; F17.210 Nicotine dependence, cigarettes, uncomplicated; R73.01 Impaired fasting glucose
CPT/HCPCS: 80053; 80307; 80365; 82306; 83721; 85025; G0480

== ENCOUNTER 2024-08-04 09:48 | Outpatient (AMB) | payer MEDICARE, SELFPAY ==
--- NOTE | 2024-08-04 09:53 | A.OFFPC_ITS ---
Vital Signs 08/04/24 09:54 Height 5 ft 11 in Weight 176 lb BMI 24.5 BP 122/70 Blood Pressure Location Rt brachial Position Sitting Pulse 70 Pulse Source Pulse Oximeter Pulse Oximetry (%) 75 L Oxygen Delivery Method Room Air Intake Visit Reasons: med visit Allergies No Known Allergies Allergy (Verified 07/30/24 08:01) Medication List - Last Reconciled 08/04/24 by Lloyd Woods MD albuterol sulfate 90 mcg/actuation (ProAir HFA) 1 inh inhalation QID PRN 30 days amlodipine 10 mg PO DAILY 90 days Anoro Ellipta 62.5-25 mcg/actuation (umeclidinium-vilanterol) 1 inh inhalation DAILY NS cholecalciferol (vitamin D3) 25 mcg PO DAILY 90 days cyclobenzaprine 5 mg PO BEDTIME PRN 30 days finasteride 5 mg PO DAILY 90 days fluticasone furoate 27.5 mcg/actuation (Flonase Sensimist) 1 spray intranasal DAILY 30 days gabapentin 300 mg PO BEDTIME ipratropium-albuterol 0.5 mg-3 mg(2.5 mg base)/3 mL 3 mL inhalation Q6-8H PRN 30 days leuprolide acetate (6 month) (Eligard) 45 mg subcut [id number] lisinopril 40 mg PO DAILY 90 days montelukast 10 mg PO DAILY 90 days omeprazole 20 mg PO DAILY oxycodone 10 mg PO TID 30 days sodium,potassium,mag sulfates 17.5-3.13-1.6 gram (Suprep Bowel Prep Kit) DILUTE; drink full amount early evening before AND next morning at least 2 hr before procedure; follow w 960 mL water PO sucralfate (Carafate) 10 mL PO Q6H 10 days Tobacco use date assessed: 08/04/24 Dental Screening Dental Screen Date: 06/09/24 HPI med visit HPI Details Upper abdominal pain is much better Patient has stopped drinking alcohol, however when he drinks coffee still having some discomfort He is taking medication regularly For no other complaints today Blood pressure is well-controlled On examination he still have mild wheezing right side Patient is established with client account specialist Medication relief provided Oxycodone Flexeril And gabapentin 300 mg b.i.d. PFSH Medical History Arthritis Back pain Hx of radiation therapy HTN (hypertension) Colitis Colon cancer screening Nocturia Heartburn Muscle spasms of neck Pain management Opioid dependence Hypertension, essential GERD (gastroesophageal reflux disease) Smokers' cough Drug induced constipation COPD (chronic obstructive pulmonary disease) Tobacco abuse Asthma Failed back syndrome Surgical History H/O colonoscopy (~06/04/24) History of colonoscopy (04/10/10) History of rotator cuff surgery History of repair of laceration History of fusion of cervical spine History of laminectomy Family History Father HTN (hypertension) Lung cancer Mother HTN (hypertension) Dementia Breast cancer Maternal Grandmother No problems noted. Maternal Grandfather No problems noted. Paternal Grandfather No problems noted. Paternal Grandmother No problems noted. Brother Throat cancer Lung cancer Brother No problems noted. Daughter No problems noted. Daughter No problems noted. Sister Ovarian cancer Sister No problems noted. Sister No problems noted. Sister No problems noted. Maternal Aunt Breast cancer Social History Household Members: Family Housing: House Are you a primary respiratory care specialist to a significant other at home: No Do you presently have visiting nurse or other home services: No Alcohol intake: current Alcohol intake frequency: holidays/special occasions only Patient Tobacco Use Status: Current everyday Tobacco user Tobacco use type: Cigarette Cigarette Packs Per Day: 1.0 Cigarettes Per Day: 20.0 e-Cigarette/Vaping Use: Never Used service: No Current occupational status: disabled Cognitive needs: No Hearing needs: No Vision needs: Yes Questionnaire Thrive Questionnaire Date Thrive assessed: 06/09/24 I am a: Patient What is your living situation today?: I have a steady place to live Within the past 12 months, did the food you bought not last and you didn't have the money to get more?: I choose not to answer this question Within the past 12 months, did you worry whether your food would run out before you got money to buy more?: I choose not to answer this question Do you have trouble paying for medicines?: I choose not to answer this question Do you have trouble getting transportation to medical appointments?: I choose not to answer this question Do you have trouble paying your heating and electricity bill?: I choose not to answer this question Do you have trouble taking care of your child, family member or friend?: I choose not to answer this question Do you have trouble with day-to-day activities such as bathing, preparing meals, shopping, managing finances, etc.?: I choose not to answer this question Are you currently unemployed and looking for a job?: I choose not to answer this question Are you interested in more education?: I choose not to answer this question Please select the resources that you would like help with: None Currently or been in a relationship where the following occur: I choose not to answer THRIVE Score: 0 VIVIANA-7 AMB Questionnaire VIVIANA-7 Date VIVIANA - 7 assessed: 06/09/24 Source: Developed by Drs. Juan Motley, Blanca Manzo, Kelton Mooney and colleagues, with an educational homa from [employer]. Review of Systems Const Denies chills and Denies fever(s) ENT Denies epistaxis and Denies nasal discharge Card Denies chest pain Resp Denies chest congestion, Denies cough and Denies hemoptysis GI Denies diarrhea and Denies nausea Skin/Breast Denies rash Neuro Reports no additional complaints Psych Reports no additional complaints Endo Reports no additional complaints Physical exam (Primary Care) Vital Signs: Last Vital Signs Pulse 70 08/04/24 09:54 BP 122/70 08/04/24 09:54 Pulse Ox 75 L 08/04/24 09:54 Oxygen Delivery Method Room Air 08/04/24 09:54 BMI result Body Mass Index 24.5 Tobacco/Smoking Status: Tobacco use Status Tobacco use date assessed 08/04/24 08/04/24 09:56 Patient Tobacco Use Status Current everyday Tobacco 08/04/24 09:56 Tobacco use type Cigarette 08/04/24 09:56 e-Cigarette/Vaping Use Never Used 08/04/24 09:56 Thrive Assessment: Date of Thrive Assessment Date Thrive assessed 06/09/24 08/04/24 09:56 Currently or been in a relationship where the following occur: I choose not to answer Const General: cooperative, comfortable and no acute distress Orientation/consciousness: patient oriented x3 HENMT Head: Yes normocephalic Eyes General: appearance normal, both eyes and all related structures Neck Neck: Yes supple Resp Effort & Inspection: normal respiratory effort, no cough and no stridor Cardio Rhythm: regular rhythm Heart sounds: S1 normal heart sound present and S2 normal heart sound present Skin General skin exam: turgor normal Neuro General: patient oriented x3, tone normal and moves all extremities Extrem Right lower extremity: no edema Left lower extremity: no edema Assessment and Plan Assessment & Plan (1) Failed back syndrome: Code(s): M96.1 - Postlaminectomy syndrome, not elsewhere classified (2) GERD (gastroesophageal reflux disease): Code(s): K21.9 - Gastro-esophageal reflux disease without esophagitis Qualifiers: Esophagitis presence: without esophagitis Qualified Code(s): K21.9 - Gastro-esophageal reflux disease without esophagitis (3) Hypertension, essential: Code(s): I10 - Essential (primary) hypertension (4) Opioid dependence: Comment: CONTROLLED NATURE OF MEDICATION WAS DISCUSSED, IT IS IMPORTANT TO NOTIFY ME OF CHANGE OF PHARMACY, OR IF TRAVELING. DO NOT SHARE THE MEDICATION WITH ANYBODY, KEEP IT SAFE AWAY FROM THE HANDS OF SMALL CHILDREN, AND ONLY TAKE IT PRESCRIBED. THIS MEDICATION HAVE A TENDENCY TO BE ABUSED, HABIT-FORMING, AND IT CAN CAUSE SEVERE CONSTIPATION ALONG WITH OTHER ALLERGIC REACTIONS. LONG-TERM USE OF NARCOTIC MEDICATIONS HAVE SHOWN TO INCREASE SENSITIVITY TO PAIN. Code(s): F11.20 - Opioid dependence, uncomplicated Qualifiers: Substance use status: uncomplicated Qualified Code(s): F11.20 - Opioid dependence, uncomplicated (5) Pain management: Code(s): R52 - Pain, unspecified (6) Nicotine dependence: Code(s): F17.200 - Nicotine dependence, unspecified, uncomplicated Qualifiers: Nicotine product type: cigarettes Substance use status: uncomplicated Qualified Code(s): F17.210 - Nicotine dependence, cigarettes, uncomplicated (7) Lumbar back pain: Code(s): M54.50 - Low back pain, unspecified Plan Upper abdominal pain is much better Patient has stopped drinking alcohol, however when he drinks coffee still having some discomfort He is taking medication regularly For no other complaints today Blood pressure is well-controlled On examination he still have mild wheezing right side Patient is established with client account specialist Medication relief provided Oxycodone Flexeril And gabapentin 300 mg b.i.d. Medications: Changed From gabapentin 2 at night and 1 in the morning 300 mg PO BEDTIME To gabapentin 300 mg PO BID 60 caps 0RF 30 days Refilled oxycodone partial refill allowed 10 mg PO TID 90 tabs 0RF pain 30 days F11.20 - Opioid dependence, uncomplicated, M96.1 - Postlaminectomy syndrome, not elsewhere classified, R52 - Pain, unspecified cyclobenzaprine 5 mg PO BEDTIME PRN 30 tabs 0RF muscle spasm 30 days M62.838 - Other muscle spasm, R52 - Pain, unspecified Coding Level of Care Code Est Pt Level 3 (46691) Complex EM visit Add On G2211 Diagnoses Failed back syndrome M96.1 Gastroesophageal reflux disease without esophagitis K21.9 Esophagitis presence: without esophagitis Hypertension, essential I10 Uncomplicated opioid dependence F11.20 Substance use status: uncomplicated Pain management R52 Cigarette nicotine dependence without complication F17.210 Nicotine product type: cigarettes Substance use status: uncomplicated Lumbar back pain M54.50
[2024-08-04 09:54] VITALS: BP 122/70; PULSE 70; O2SAT 75; BMI 24.5
== END 2024-08-04 11:02 | disposition home or self-care (01) ==
PROVIDERS: PCP Internal Medicine; Visit Provider Internal Medicine
DX: M96.1 Postlaminectomy syndrome, not elsewhere classified (principal); K21.9 Gastro-esophageal reflux disease without esophagitis; F11.20 Opioid dependence, uncomplicated; I10 Essential (primary) hypertension; R52 Pain, unspecified; F17.210 Nicotine dependence, cigarettes, uncomplicated; M54.50 Low back pain, unspecified

== ENCOUNTER → 2024-08-04 09:48 | Outpatient (BNVA) | payer MEDICARE, SELFPAY | PROVIDERS: PCP Internal Medicine; Visit Provider Internal Medicine | DX: M96.1 Postlaminectomy syndrome, not elsewhere classified (principal); K21.9 Gastro-esophageal reflux disease without esophagitis; I10 Essential (primary) hypertension; M54.50 Low back pain, unspecified; F11.20 Opioid dependence, uncomplicated; F17.210 Nicotine dependence, cigarettes, uncomplicated; Z71.6 Tobacco abuse counseling | CPT/HCPCS: 99212 ==

== ENCOUNTER 2024-09-02 08:08 | Outpatient (AMB) | payer MEDICARE, SELFPAY ==
[2024-09-02 08:14] VITALS: BP 110/68; PULSE 78; O2SAT 98
--- NOTE | 2024-09-02 08:14 | AM.OFFWIN_ITS ---
Intake Vital Signs 09/02/24 08:14 Weight 176 lb 6 oz BP 110/68 Blood Pressure Location Rt brachial Position Sitting Pulse 78 Pulse Source Pulse Oximeter Pulse Oximetry (%) 98 Oxygen Delivery Method Room Air Intake Visit Reasons: EP Neck Pain Intake Note: Patient here for neck pain thats been present for about 1 week. he states he has a hx of surgery on the neck and is concerned. Patient Tobacco Use Status: Current everyday Tobacco user Allergies No Known Allergies Allergy (Verified 09/02/24 08:22) HPI EP Neck Pain HPI Details This note is constructed using voice recognition software. While every effort has been made to ensure accuracy, process area supervisor errors may have been included. The patient is a 69 year old male who presents to the clinic today with left posterior cervical pain for the past week. He reports he has had a history of cervical surgery, and has had a screw loosened in the past. He notes that approximately one-week ago he woke up with left posterior neck pain, after not h aving any repeat injuries or any specific movement to contribute to it. He reports that he is taking Percocet regularly for his pain, and has had to increase the frequency by cutting the pills in half to help keep the pain under control. He has not tried any additional Tylenol. He is unable to take ibuprofen due to history of ulcer. He tried ice and it did not seem to help. He has not yet tried heat. He denies new numbness and tingling in his arms, but does report that he has chronically had intermittent numbness and tingling in his arms. [facility] Medical History Arthritis Back pain Hx of radiation therapy HTN (hypertension) Colitis Colon cancer screening Nocturia Heartburn Muscle spasms of neck Pain management Opioid dependence Hypertension, essential GERD (gastroesophageal reflux disease) Smokers' cough Drug induced constipation COPD (chronic obstructive pulmonary disease) Tobacco abuse Asthma Failed back syndrome Surgical History H/O colonoscopy (~06/04/24) History of colonoscopy (04/10/10) History of rotator cuff surgery History of repair of laceration History of fusion of cervical spine History of laminectomy Family History Father HTN (hypertension) Lung cancer Mother HTN (hypertension) Dementia Breast cancer Maternal Grandmother No problems noted. Maternal Grandfather No problems noted. Paternal Grandfather No problems noted. Paternal Grandmother No problems noted. Brother Throat cancer Lung cancer Brother No problems noted. Daughter No problems noted. Daughter No problems noted. Sister Ovarian cancer Sister No problems noted. Sister No problems noted. Sister No problems noted. Maternal Aunt Breast cancer Social History Household Members: Family Housing: House Are you a primary progressive care nurse to a significant other at home: No Do you presently have visiting nurse or other home services: No Alcohol intake: current Alcohol intake frequency: holidays/special occasions only Patient Tobacco Use Status: Current everyday Tobacco user Tobacco use type: Cigarette Cigarette Packs Per Day: 1.0 Cigarettes Per Day: 20.0 e-Cigarette/Vaping Use: Never Used service: No Current occupational status: disabled Cognitive needs: No Hearing needs: No Vision needs: Yes Review of Systems Const All systems reviewed & are unremarkable except as noted in HPI and below Physical Exam Vital Signs: Last Vital Signs Pulse 78 09/02/24 08:14 BP 110/68 09/02/24 08:14 Pulse Ox 98 09/02/24 08:14 Oxygen Delivery Method Room Air 09/02/24 08:14 Const General: cooperative, healthy appearing, comfortable, no acute distress and well developed Orientation/consciousness: patient oriented x3 Limitations: no limitations Neck Neck: Yes normal visual inspection and Yes full ROM Resp Effort & Inspection: normal respiratory effort and able to speak in complete sentences Auscultation: clear to auscultation bilaterally Cardio Rate: regular rate Rhythm: regular rhythm Heart sounds: normal S1 and S2 Back/Spine/Pelvis Other: Tender to palpation and increased muscle bulging over left upper trapezius muscle. Cervical Lateral rotation limited to 5 degrees each direction due to pain. No palpable step-offs. Distal neurovascular exam intact. Skin Other: Sebaceous cyst left paraspinal cervical region. General skin exam: no rashes or lesions noted Neuro General: patient oriented x3 Extrem Other: Bilateral arms, shoulders, elbows full range of motion. General: Yes normal to inspection Assessment & Plan Assessment & Plan (1) Cervicalgia: Code(s): M54.2 - Cervicalgia Plan: Likely muscular strain. Patient does have cyclobenzaprine available at home, advised to try this. Additionally advised to try a heat as he has not yet tried this for symptomatic management. We also ordered an x-ray to evaluate given his history of surgery with pin derangement. Advised follow up as needed with worsening or failure to resolve. Plan See above for full details and plan. Orders: Orders XR cervical spine 3V Today M54.2 - Cervicalgia Coding Level of Care Code Est Pt Level 3 (73943) Diagnoses Cervicalgia M54.2
== END 2024-09-02 08:43 | disposition home or self-care (01) ==
PROVIDERS: PCP Internal Medicine; Visit Provider Registered Nurse
DX: M54.2 Cervicalgia (principal)

== ENCOUNTER → 2024-09-02 08:08 | Outpatient (BNVA) | payer MEDICARE, SELFPAY | PROVIDERS: PCP Internal Medicine ==

== ENCOUNTER 2024-09-02 08:37 | Outpatient (REF) | payer MEDICARE, SELFPAY ==
--- NOTE | ~2024-09-02 | XR_ITS ---
EXAMINATION: XR CERVICAL SPINE CLINICAL INFORMATION: Cervicalgia history. Cervical spine surgery. COMPARISON: X-ray 11/24/2018. CT 07/14/2021 TECHNIQUE: 4 views of the cervical spine were obtained. FINDINGS: There is leftward curvature of the cervical spine. Postsurgical changes, with orthopedic hardware present;, interbody device at C4-C5, anterior spinal fusion hardware at C5-C6, orthopedic hardware in the C6-C7 disc space, screw in C7 vertebral body. Intact hardware. No suspicious periarticular lucency. The sagittal vertebral body alignment is maintained. No acute fracture seen. Predental space is maintained. No prevertebral soft tissue swelling. Multilevel facet degeneration. Base of the dens is intact. Lung apices are clear. XR/XR cervical spine 3V IMPRESSION: Extensive postsurgical changes in the cervical spine as detailed above. No radiographic evidence of hardware fracture or hardware complications. No acute fracture seen. Electronically signed by: Dontrell Marti MD 09/02/2024 01:11 PM EDT
== END 2024-09-02 08:38 | disposition home or self-care (01) ==
LOC: HO.HMGCX 08:37
PROVIDERS: PCP Internal Medicine; Visit Provider Registered Nurse
DX: M54.2 Cervicalgia (principal)
CPT/HCPCS: 72040; 99212

== ENCOUNTER 2024-09-07 09:39 | Outpatient (AMB) | payer MEDICARE, SELFPAY ==
[2024-09-07 09:43] VITALS: BP 136/80; PULSE 73; O2SAT 93; BMI 25.0
--- NOTE | 2024-09-07 09:43 | MHC.PC.OV ---
Vital Signs 09/07/24 09:43 Height 5 ft 11 in Weight 179 lb BMI 25.0 BP 136/80 Blood Pressure Location Lt brachial Position Sitting Pulse 73 Pulse Source Pulse Oximeter Pulse Oximetry (%) 93 Oxygen Delivery Method Room Air Intake Visit Reasons: med visit Allergies No Known Allergies Allergy (Verified 09/07/24 09:46) Medication List - Last Reconciled 09/07/24 by Lloyd Woods MD albuterol sulfate 90 mcg/actuation (ProAir HFA) 1 inh inhalation QID PRN 30 days amlodipine 10 mg PO DAILY 90 days Anoro Ellipta 62.5-25 mcg/actuation (umeclidinium-vilanterol) 1 inh inhalation DAILY NS cholecalciferol (vitamin D3) 25 mcg PO DAILY 90 days cyclobenzaprine 5 mg PO BEDTIME PRN 30 days finasteride 5 mg PO DAILY 90 days fluticasone furoate 27.5 mcg/actuation (Flonase Sensimist) 1 spray intranasal DAILY 30 days gabapentin 300 mg PO BID 30 days ipratropium-albuterol 0.5 mg-3 mg(2.5 mg base)/3 mL 3 mL inhalation Q6-8H PRN 30 days leuprolide acetate (6 month) (Eligard) 45 mg subcut [id number] lisinopril 40 mg PO DAILY 90 days montelukast 10 mg PO DAILY 90 days omeprazole 20 mg PO DAILY oxycodone 10 mg PO TID 30 days sodium,potassium,mag sulfates 17.5-3.13-1.6 gram (Suprep Bowel Prep Kit) DILUTE; drink full amount early evening before AND next morning at least 2 hr before procedure; follow w 960 mL water PO sucralfate (Carafate) 10 mL PO Q6H 10 days Tobacco use date assessed: 09/07/24 Fall risk assessment: No Falls in past year Last assessed Fall Risk: 09/07/24 Dental Screening Dental Screen Date: 09/07/24 Did you have a dental visit in the last 12 months?: Yes Did you have a dental problem in the last 6 months where you did not have access to dental care?: No Was dental information given to patient?: Patient has dentist HPI med visit HPI Details 69-year-old gentleman came in today for his medication refill visit He has developed a cyst size of parmar upper back in the middle That patient would like removed, referral placed He offer no other complaints today Blood pressure is well-controlled Continued to smoke Patient is established with exhibit specialist Medication refills sent Oxycodone Flexeril And gabapentin 300 mg b.i.d. Follow-up 1 month [facility] Medical History Arthritis Back pain Hx of radiation therapy HTN (hypertension) Colitis Colon cancer screening Nocturia Heartburn Muscle spasms of neck Pain management Opioid dependence Hypertension, essential GERD (gastroesophageal reflux disease) Smokers' cough Drug induced constipation COPD (chronic obstructive pulmonary disease) Tobacco abuse Asthma Failed back syndrome Surgical History H/O colonoscopy (~06/04/24) History of colonoscopy (04/10/10) History of rotator cuff surgery History of repair of laceration History of fusion of cervical spine History of laminectomy Family History Father HTN (hypertension) Lung cancer Mother HTN (hypertension) Dementia Breast cancer Maternal Grandmother No problems noted. Maternal Grandfather No problems noted. Paternal Grandfather No problems noted. Paternal Grandmother No problems noted. Brother Throat cancer Lung cancer Brother No problems noted. Daughter No problems noted. Daughter No problems noted. Sister Ovarian cancer Sister No problems noted. Sister No problems noted. Sister No problems noted. Maternal Aunt Breast cancer Social History Household Members: Family Housing: House Are you a primary urgent care nurse practitioner to a significant other at home: No Do you presently have visiting nurse or other home services: No Alcohol intake: current Alcohol intake frequency: holidays/special occasions only Patient Tobacco Use Status: Current everyday Tobacco user Tobacco use type: Cigarette Cigarette Packs Per Day: 1.0 Cigarettes Per Day: 20.0 e-Cigarette/Vaping Use: Never Used service: No Current occupational status: disabled Cognitive needs: No Hearing needs: No Vision needs: Yes Questionnaire Thrive Questionnaire Date Thrive assessed: 06/09/24 I am a: Patient What is your living situation today?: I have a steady place to live Within the past 12 months, did the food you bought not last and you didn't have the money to get more?: I choose not to answer this question Within the past 12 months, did you worry whether your food would run out before you got money to buy more?: I choose not to answer this question Do you have trouble paying for medicines?: I choose not to answer this question Do you have trouble getting transportation to medical appointments?: I choose not to answer this question Do you have trouble paying your heating and electricity bill?: I choose not to answer this question Do you have trouble taking care of your child, family member or friend?: I choose not to answer this question Do you have trouble with day-to-day activities such as bathing, preparing meals, shopping, managing finances, etc.?: I choose not to answer this question Are you currently unemployed and looking for a job?: I choose not to answer this question Are you interested in more education?: I choose not to answer this question Please select the resources that you would like help with: None Currently or been in a relationship where the following occur: I choose not to answer THRIVE Score: 0 AUDIT C Alcohol Use Questionnaire (AUDIT-C) 1. How often do you have a drink containing alcohol?: Monthly or less 2. How many drinks containing alcohol do you have on a typical day when you are drinking?: 1 or 2 3. How often do you have six or more drinks on one occasion?: Less than monthly Total Score: 2 Score Reviewed/Action Taken: Yes VIVIANA-7 AMB Questionnaire VIVIANA-7 Date VIVIANA - 7 assessed: 06/09/24 Source: Developed by Drs. Juan Motley, Blanca Manzo, Kelton Mooney and colleagues, with an educational homa from [employer]. Review of Systems Const Denies chills and Denies fever(s) ENT Denies epistaxis and Denies nasal discharge Card Denies chest pain Resp Denies chest congestion and Denies hemoptysis GI Denies diarrhea and Denies nausea Skin/Breast Denies rash Neuro Reports no additional complaints Psych Reports no additional complaints Endo Reports no additional complaints Physical exam (Primary Care) Vital Signs: Last Vital Signs Pulse 73 09/07/24 09:43 BP 136/80 09/07/24 09:43 Pulse Ox 93 09/07/24 09:43 Oxygen Delivery Method Room Air 09/07/24 09:43 BMI result Body Mass Index 25.0 Tobacco/Smoking Status: Tobacco use Status Tobacco use date assessed 09/07/24 09/07/24 09:48 Patient Tobacco Use Status Current everyday Tobacco 09/07/24 09:44 Tobacco use type Cigarette 09/07/24 09:44 e-Cigarette/Vaping Use Never Used 09/07/24 09:44 Thrive Assessment: Date of Thrive Assessment Date Thrive assessed 06/09/24 09/07/24 09:44 Currently or been in a relationship where the following occur: I choose not to answer Const General: cooperative, comfortable and no acute distress Orientation/consciousness: patient oriented x3 HENMT Head: Yes normocephalic Eyes General: appearance normal, both eyes and all related structures Neck Neck: Yes supple Resp Effort & Inspection: normal respiratory effort, no cough and no stridor Cardio Rhythm: regular rhythm Heart sounds: S1 normal heart sound present and S2 normal heart sound present Back/Spine/Pelvis Back/spine/pelvis image: 1. Cyst fluctuant without pain size of parmar Skin General skin exam: turgor normal Neuro General: patient oriented x3, tone normal and moves all extremities Extrem Right lower extremity: no edema Left lower extremity: no edema Coding Level of Care Code Est Pt Level 4 (38755) Complex EM visit Add On G2211 Diagnoses Failed back syndrome M96.1 Tobacco abuse Z72.0 Mixed simple and mucopurulent chronic bronchitis J41.8 COPD type: chronic bronchitis Chronic bronchitis type: mixed simple and mucopurulent Gastroesophageal reflux disease without esophagitis K21.9 Esophagitis presence: without esophagitis Hypertension, essential I10 Pain management R52 Epididymal cyst N50.3 Assessment & Plan Assessment & Plan (1) Failed back syndrome: Code(s): M96.1 - Postlaminectomy syndrome, not elsewhere classified Category: Medical (2) Tobacco abuse: Code(s): Z72.0 - Tobacco use Category: Medical (3) COPD (chronic obstructive pulmonary disease): Code(s): J44.9 - Chronic obstructive pulmonary disease, unspecified Category: Medical Qualifiers: COPD type: chronic bronchitis Chronic bronchitis type: mixed simple and mucopurulent Qualified Code(s): J41.8 - Mixed simple and mucopurulent chronic bronchitis (4) GERD (gastroesophageal reflux disease): Code(s): K21.9 - Gastro-esophageal reflux disease without esophagitis Category: Medical Qualifiers: Esophagitis presence: without esophagitis Qualified Code(s): K21.9 - Gastro-esophageal reflux disease without esophagitis (5) Hypertension, essential: Code(s): I10 - Essential (primary) hypertension Category: Medical (6) Pain management: Code(s): R52 - Pain, unspecified Category: Medical (7) Epididymal cyst: Code(s): N50.3 - Cyst of epididymis Category: Medical Plan 69-year-old gentleman came in today for his medication refill visit He has developed a cyst size of parmar upper back in the middle That patient would like removed, referral placed He offer no other complaints today Blood pressure is well-controlled Continued to smoke Patient is established with exhibit specialist Medication refills sent Oxycodone Flexeril And gabapentin 300 mg b.i.d. Follow-up 1 month Orders: Referrals General Surgery Referral N50.3 - Cyst of epididymis Medications: Refilled gabapentin 300 mg PO BID 30 days 60 caps 0RF cyclobenzaprine 5 mg PO BEDTIME 30 days PRN 30 tabs 0RF muscle spasm M62.838 - Other muscle spasm, R52 - Pain, unspecified oxycodone partial refill allowed 10 mg PO TID 30 days 90 tabs 0RF pain F11.20 - Opioid dependence, uncomplicated, M96.1 - Postlaminectomy syndrome, not elsewhere classified, R52 - Pain, unspecified
== END 2024-09-07 10:10 | disposition home or self-care (01) ==
LOC: HO.HMCC 09:40
PROVIDERS: PCP Internal Medicine; Visit Provider Internal Medicine
DX: M96.1 Postlaminectomy syndrome, not elsewhere classified (principal); Z72.0 Tobacco use; J41.8 Mixed simple and mucopurulent chronic bronchitis; K21.9 Gastro-esophageal reflux disease without esophagitis; I10 Essential (primary) hypertension; R52 Pain, unspecified; N50.3 Cyst of epididymis

== ENCOUNTER → 2024-09-07 09:39 | Outpatient (BNVA) | payer MEDICARE, SELFPAY | PROVIDERS: PCP Internal Medicine; Visit Provider Internal Medicine ==

== ENCOUNTER 2024-09-07 10:08 | Outpatient (REF) | payer MEDICARE, SELFPAY ==
[2024-09-07 14:17] LABS: Prostate Specific Antigen < 0.10 ng/mL (<0.05-4.0)
[2024-09-13 15:14] LABS: Testosterone, Total 16 ng/dL (250-1100)
== END 2024-09-07 10:09 | disposition home or self-care (01) ==
LOC: HO.HMGCLDS 10:08
PROVIDERS: PCP Internal Medicine; Visit Provider Urology
DX: M96.1 Postlaminectomy syndrome, not elsewhere classified (principal); J41.8 Mixed simple and mucopurulent chronic bronchitis; K21.9 Gastro-esophageal reflux disease without esophagitis; I10 Essential (primary) hypertension; R52 Pain, unspecified; M62.838 Other muscle spasm; N50.3 Cyst of epididymis; L72.9 Follicular cyst of the skin and subcutaneous tissue, unspecified; Z72.0 Tobacco use; Z79.891 Long term (current) use of opiate analgesic; Z79.899 Other long term (current) drug therapy; C61 Malignant neoplasm of prostate; Z12.5 Encounter for screening for malignant neoplasm of prostate
CPT/HCPCS: 36415; 84153; 84403; 99212

== ENCOUNTER 2024-09-17 13:02 | Outpatient (AMB) | payer MEDICARE, SELFPAY ==
--- NOTE | 2024-09-17 13:02 | MHC.OFFVIS ---
Intake Visit Reasons: 6m/PSA/Testo(set) Intake Note: Patient is present for PSA/Testosterone follow up Urology Med: Finasteride Antibiotic Allergy:None Blood Thinner:None PSA- 09/07/2024 <0.10 TESTOSTERONE- 09/07/2024 16 Command And Control Specialist Required: No Allergies No Known Allergies Allergy (Verified 09/17/24 13:02) HPI Comments Details: Daryn is a pleasant male. He is a patient of Dr. Woods. He is seen for the following urologic conditions - elevated PSA - lower urinary tract symptoms Telemedicine Evaluation 15 min Consultation [employer], [employer] Sadaf Video attempted Discussed results 09/02 - PSA <0.1 T 16 Hot flashes resolving Did have injection at injection site 03/03 <0.1 T Third GnRH today 01/03 0.1, T 09/01 GnRH, finasteride - main concern was proctitis which was resolving PSA 05/02 0.6 GnRH 03/04/23 with finasteride - MAB during XRT (GnRH bicalutamide + finasteride) Prostate cancer - Grade Group Grade Group 4 - EXBRT with maximum androgen blockade ([facility]) completed April 2023 Adenocarcinoma of the prostate (T1c N0 M0, Nelli score 3+5, Grade Group 4, PSA at Diagnosis 5.4) - NCCN high risk group Prostate cancer was diagnosed Dr Flower Diagnosis was reached by - for elevated PSA - 5.4 F 11% - 40cc Date: 12/02 12 Core biopsy Positive Biopsies: 4 Negative Biopsies: 8 - (%) Positive: Locations: Left base lateral 3+4 25%, left base medial 3+4 25%, left mid lateral 3+3 5%, left mid medial 3+5 25% TNM Classification of Malignant Tumours (TNM) - T2a Staging Imaging - 12/02 PMSA - metabolically active prostate, question of rib involvement however unlikely - 01/30 prostate MRI - left posterolateral mid, base 1.5 cm PI-RADS 4 with abutment, no clear evidence of extracapsular extension Associated conditions erectile dysfunction Mild EXBRT with maximum androgen blockade with Dr. Austin at [facility] 7600 grade, 44 fractions Lower urinary tract symptoms Nocturia 2-3 Variable stream Prior medications include tamsulosin, finasteride and terazosin ALEK 1+ prominent medial sulcus Low libido Reports decline in desire Baseline chronic opiate use T 10/01 452 PSA 05/01 5.9, 10/01 5.4 11% PFS Medical History Arthritis Back pain Hx of radiation therapy HTN (hypertension) Colitis Colon cancer screening Nocturia Heartburn Muscle spasms of neck Pain management Opioid dependence Hypertension, essential GERD (gastroesophageal reflux disease) Smokers' cough Drug induced constipation COPD (chronic obstructive pulmonary disease) Tobacco abuse Asthma Failed back syndrome Surgical History H/O colonoscopy (~06/04/24) History of colonoscopy (04/10/10) History of rotator cuff surgery History of repair of laceration History of fusion of cervical spine History of laminectomy Family History Father HTN (hypertension) Lung cancer Mother HTN (hypertension) Dementia Breast cancer Maternal Grandmother No problems noted. Maternal Grandfather No problems noted. Paternal Grandfather No problems noted. Paternal Grandmother No problems noted. Brother Throat cancer Lung cancer Brother No problems noted. Daughter No problems noted. Daughter No problems noted. Sister Ovarian cancer Sister No problems noted. Sister No problems noted. Sister No problems noted. Maternal Aunt Breast cancer Social History Household Members: Family Housing: House Are you a primary manager medicare marketing to a significant other at home: No Do you presently have visiting nurse or other home services: No Alcohol intake: current Alcohol intake frequency: holidays/special occasions only Patient Tobacco Use Status: Current everyday Tobacco user Tobacco use type: Cigarette Cigarette Packs Per Day: 1.0 Cigarettes Per Day: 20.0 e-Cigarette/Vaping Use: Never Used service: No Current occupational status: disabled Cognitive needs: No Hearing needs: No Vision needs: Yes Review of Systems Const All systems reviewed & are unremarkable except as noted in HPI and below Reports no additional complaints Resp Reports no additional complaints GI Reports no additional complaints Reports as per HPI Musc Reports no additional complaints Physical Exam Telemedicine evaluation Appropriate responses Regular breathing rate and rhythm HEENT Head: Yes normal to inspection Ears: hearing grossly normal bilaterally Eyes General: appearance normal, both eyes and all related structures Neck Neck: Yes normal visual inspection Chest Chest palpation & inspection: normal inspection of the chest Resp Effort & Inspection: normal respiratory effort and able to speak in complete sentences Telehealth Telehealth Telehealth Platform: [employer], [employer] Location of provider rendering services: practice address Location of patient: address on file Patient Identification confirmed using: Name, : Yes Telehealth method: video Patient verbally consented to treatment: Yes Patient verbally consented to billing insurance company: Yes Patient informed of any privacy concerns related to visit: Yes Minutes spent on Phone/Video with Pt.: 15 Assessment & Plan Assessment & Plan (1) Prostate cancer: Comment: 12/02 PSA 5.4, high risk Nelli 3 + 5, 4 cores Code(s): C61 - Malignant neoplasm of prostate Category: Medical (2) Nocturia more than twice per night: Code(s): R35.1 - Nocturia Category: Medical (3) Hot flash due to medication: Code(s): R23.2 - [place]; T50.905A - Adverse effect of unspecified drugs, medicaments and biological substances, initial encounter Category: Medical Plan 4 m f/u labs office Orders: Orders Prostate Specific Antigen 4 Months C61 - Malignant neoplasm of prostate Testosterone, Total 4 Months C61 - Malignant neoplasm of prostate Medications: Discontinued finasteride Discontinued Reason: Patient Completed Course 5 mg PO DAILY 90 days 90 tabs 1RF Patient Instructions: Imaging studies, laboratory and physical exam results were discussed and reviewed in detail. No major barriers to patient understanding were identified. An opportunity to ask questions regarding the treatment plan was provided. All questions were answered. The patient expressed understanding and agreement with the above treatment plan. The patient is aware they should contact our office by phone for worsening of their current condition or the appearance of new urologic symptoms. Compliance is encouraged with any medications and followup testing that is ordered. It is a privilege to participate in the urologic care of your patient. If you have any questions or concerns regarding treatment for the above conditions, or other urologic issues, please do not hesitate to contact me. The office telephone contact is [phone]. This note is constructed using voice recognition software. While every effort has been made to ensure accuracy obstetrics specialist errors may have been included. Yours sincerely, Dr Samy Flower MD, [facility] - Urology Providers of Expert, Compassionate Care for the Genitourinary System Coding Level of Care Code Tele Est Pt Level 3 (23630) Diagnoses Prostate cancer C61 Nocturia more than twice per night R35.1 Hot flash due to medication R23.2; T50.905A
== END 2024-09-17 13:36 | disposition home or self-care (01) ==
LOC: HO.HUSH 13:02
PROVIDERS: PCP Internal Medicine; Visit Provider Urology
DX: C61 Malignant neoplasm of prostate (principal); R35.1 Nocturia; R23.2 Flushing; T50.905A Adverse effect of unspecified drugs, medicaments and biological substances, initial encounter
CPT/HCPCS: 99213

== ENCOUNTER 2024-10-06 09:38 | Outpatient (AMB) | payer MEDICARE, SELFPAY ==
[2024-10-06 09:44] VITALS: BP 132/76; PULSE 95; O2SAT 93; BMI 24.7
--- NOTE | 2024-10-06 09:44 | A.OFFPC_ITS ---
Vital Signs 3 10/06/24 09:44 Height 5 ft 11 in Weight 177 lb BMI 24.7 BP 132/76 Blood Pressure Location Lt brachial Position Sitting Pulse 95 Pulse Source Pulse Oximeter Pulse Oximetry (%) 93 Oxygen Delivery Method Room Air Intake Visit Reasons: med visit Allergies No Known Allergies Allergy (Verified 10/06/24 10:24) Medication List - Last Reconciled 10/06/24 by Lloyd Woods MD albuterol sulfate 90 mcg/actuation (ProAir HFA) 1 inh inhalation QID PRN 30 days amlodipine 10 mg PO DAILY 90 days Anoro Ellipta 62.5-25 mcg/actuation (umeclidinium-vilanterol) 1 inh inhalation DAILY NS cholecalciferol (vitamin D3) 25 mcg PO DAILY 90 days cyclobenzaprine 5 mg PO BEDTIME PRN 30 days fluticasone furoate 27.5 mcg/actuation (Flonase Sensimist) 1 spray intranasal DAILY 30 days gabapentin 300 mg PO BID 30 days ipratropium-albuterol 0.5 mg-3 mg(2.5 mg base)/3 mL 3 mL inhalation Q6-8H PRN 30 days leuprolide acetate (6 month) (Eligard) 45 mg subcut [id number] lisinopril 40 mg PO DAILY 90 days montelukast 10 mg PO DAILY 90 days omeprazole 20 mg PO DAILY oxycodone 10 mg PO TID 30 days sodium,potassium,mag sulfates 17.5-3.13-1.6 gram (Suprep Bowel Prep Kit) DILUTE; drink full amount early evening before AND next morning at least 2 hr before procedure; follow w 960 mL water PO sucralfate (Carafate) 10 mL PO Q6H 10 days Tobacco use date assessed: 10/06/24 Fall risk assessment: No Falls in past year Last assessed Fall Risk: 10/06/24 Dental Screening Dental Screen Date: 10/06/24 Did you have a dental visit in the last 12 months?: No Did you have a dental problem in the last 6 months where you did not have access to dental care?: No Was dental information given to patient?: No HPI med visit 2 HPI0 Details Chief Complaint Patient came in for his regular medication refill Also has been sick for the past 3-4 days and since yesterday having pain right lower quadrant abdomen which comes and goes Assessment and Plan 69-year-old male with a history of chron ic obstructive pulmonary disease and bladder cancer, presenting with recent onset abdominal pain potentially indicative of appendicitis. The patient reports the pain started approximately 1-2 days ago and is localized in the right lower quadrant, an area consistent with appendiceal involvement. The patient denies nausea but has had a recent history of respiratory symptoms attributed to COPD exacerbation, which have since improved. Examination reveals tenderness without significant guarding where the appendix is anatomically located. Given the acute nature and location of the pain, appendicitis is highly likely. Other causes, such as renal calculi or urinary tract infection, have been considered less likely due to the absence of hematuria, urinary symptoms, and initial clinical evaluation. 1. Chronic Obstructive Pulmonary Disease Copd The patient had a recent episode of significant coughing and wheezing, which has since improved likely due to self-resolution. No acute intervention is necessary at this moment as the symptoms have subsided. Continued avoidance of smoking and exposure to respiratory irritants is advised to prevent exacerbations. 2. Acute Appendicitis The patient is directed to visit the emergency department for immediate evaluation and management due to the suspected appendicitis. Immediate medical attention is prioritized due to the risk of appendiceal rupture, especially given the current holiday period and potential delays in outpatient diagnostic testing. Patient was instructed to go to emergency room 3- history of numerous back surgery and cervical spine surgery, continued to have pain and is on narcotic pain management, refill sent Problem List - Acute Appendicitis - Chronic Obstructive Pulmonary Disease (COPD) - History of bladder cancer Cancer - failed back syndrome - narcotic dependence Patient Instructions - Proceed to the emergency room as soon as possible for further evaluation and potential treatment of suspected appendicitis. ER physician notified - Abstain from smoking and follow COPD m anagement strategies to prevent exacerbations. - Monitor symptoms and seek immediate ca re if abdominal pain increases, fever develops, or new symptoms arise. - Schedule a follow-up with urology as p lanned for further evaluation related to prior cancer history. - Maintain hydration and a balanced diet to support overall health. [facility] Medical History Arthritis Back pain Hx of radiation therapy HTN (hypertension) Colitis Colon cancer screening Nocturia Heartburn Muscle spasms of neck Pain management Opioid dependence Hypertension, essential GERD (gastroesophageal reflux disease) Smokers' cough Drug induced constipation COPD (chronic obstructive pulmonary disease) Tobacco abuse Asthma Failed back syndrome Surgical History H/O colonoscopy (~06/04/24) History of colonoscopy (04/10/10) History of rotator cuff surgery History of repair of laceration History of fusion of cervical spine History of laminectomy Family History Father HTN (hypertension) Lung cancer Mother HTN (hypertension) Dementia Breast cancer Maternal Grandmother No problems noted. Maternal Grandfather No problems noted. Paternal Grandfather No problems noted. Paternal Grandmother No problems noted. Brother Throat cancer Lung cancer Brother No problems noted. Daughter No problems noted. Daughter No problems noted. Sister Ovarian cancer Sister No problems noted. Sister No problems noted. Sister No problems noted. Maternal Aunt Breast cancer Social History Household Members: Family Housing: House Are you a primary lawn care specialist to a significant other at home: No Do you presently have visiting nurse or other home services: No Alcohol intake: current Alcohol intake frequency: holidays/special occasions only Patient Tobacco Use Status: Current everyday Tobacco user Tobacco use type: Cigarette Cigarette Packs Per Day: 1.0 Cigarettes Per Day: 20.0 e-Cigarette/Vaping Use: Never Used service: No Current occupational status: disabled Cognitive needs: No Hearing needs: No Vision needs: Yes Questionnaire Thrive Questionnaire Date Thrive assessed: 06/09/24 I am a: Patient What is your living situation today?: I have a steady place to live Within the past 12 months, did the food you bought not last and you didn't have the money to get more?: I choose not to answer this question Within the past 12 months, did you worry whether your food would run out before you got money to buy more?: I choose not to answer this question Do you have trouble paying for medicines?: I choose not to answer this question Do you have trouble getting transportation to medical appointments?: I choose not to answer this question Do you have trouble paying your heating and electricity bill?: I choose not to answer this question Do you have trouble taking care of your child, family member or friend?: I choose not to answer this question Do you have trouble with day-to-day activities such as bathing, preparing meals, shopping, managing finances, etc.?: I choose not to answer this question Are you currently unemployed and looking for a job?: I choose not to answer this question Are you interested in more education?: I choose not to answer this question Please select the resources that you would like help with: None Currently or been in a relationship where the following occur: I choose not to answer THRIVE Score: 0 AUDIT C Alcohol Use Questionnaire (AUDIT-C) 1. How often do you have a drink containing alcohol?: Monthly or less 2. How many drinks containing alcohol do you have on a typical day when you are drinking?: 1 or 2 3. How often do you have six or more drinks on one occasion?: Less than monthly Total Score: 2 Score Reviewed/Action Taken: Yes VIVIANA-7 AMB Questionnaire VIVIANA-7 Date VIVIANA - 7 assessed: 06/09/24 Source: Developed by Drs. Juan Motley, Blanca Manzo, Keltno Mooney and colleagues, with an educational homa from [employer]. Review of Systems Const Denies chills and Denies fever(s) ENT Denies epistaxis and Denies nasal discharge Card Denies chest pain Resp Denies hemoptysis GI Denies diarrhea Skin/Breast Denies rash Neuro Reports no additional complaints Psych Reports no additional complaints Endo Reports no additional complaints Physical exam (Primary Care) Vital Signs: Last Vital Signs Pulse 95 10/06/24 09:44 BP 132/76 10/06/24 09:44 Pulse Ox 93 10/06/24 09:44 Oxygen Delivery Method Room Air 10/06/24 09:44 BMI result Body Mass Index 24.7 Tobacco/Smoking Status: Tobacco use Status Tobacco use date assessed 10/06/24 10/06/24 09:46 Patient Tobacco Use Status Current everyday Tobacco 10/06/24 09:46 Tobacco use type Cigarette 10/06/24 09:46 e-Cigarette/Vaping Use Never Used 10/06/24 09:46 Thrive Assessment: Date of Thrive Assessment Date Thrive assessed 06/09/24 10/06/24 09:46 Currently or been in a relationship where the following occur: I choose not to answer Const General: cooperative, comfortable and no acute distress Orientation/consciousness: patient oriented x3 HENMT Head: Yes normocephalic Eyes General: appearance normal, both eyes and all related structures Neck Neck: Yes supple Resp Effort & Inspection: normal respiratory effort, no cough and no stridor Cardio Rhythm: regular rhythm Heart sounds: S1 normal heart sound present and S2 normal heart sound present GI Abdomen image: 2 1. +++ Tender to pressure Skin General skin exam: turgor normal Neuro General: patient oriented x3, tone normal and moves all extremities Extrem Right lower extremity: no edema Left lower extremity: no edema Coding Level of Care Code Est Pt Level 5 (78833) Diagnoses Acute right lower quadrant pain R10.31 Failed back syndrome M96.1 Mixed simple and mucopurulent chronic bronchitis J41.8 COPD type: chronic bronchitis Chronic bronchitis type: mixed simple and mucopurulent Tobacco abuse Z72.0 Uncomplicated opioid dependence F11.20 Substance use status: uncomplicated Pain management R52 Prostate cancer C61 Assessment & Plan Assessment & Plan (1) Acute right lower quadrant pain: Code(s): R10.31 - Right lower quadrant pain Category: Medical (2) Failed back syndrome: Code(s): M96.1 - Postlaminectomy syndrome, not elsewhere classified Category: Medical (3) COPD (chronic obstructive pulmonary disease): Code(s): J44.9 - Chronic obstructive pulmonary disease, unspecified Category: Medical Qualifiers: COPD type: chronic bronchitis Chronic bronchitis type: mixed simple and mucopurulent Qualified Code(s): J41.8 - Mixed simple and mucopurulent chronic bronchitis (4) Tobacco abuse: Code(s): Z72.0 - Tobacco use Category: Medical (5) Opioid dependence: Comment: CONTROLLED NATURE OF MEDICATION WAS DISCUSSED, IT IS IMPORTANT TO NOTIFY ME OF CHANGE OF PHARMACY, OR IF TRAVELING. DO NOT SHARE THE MEDICATION WITH ANYBODY, KEEP IT SAFE AWAY FROM THE HANDS OF SMALL CHILDREN, AND ONLY TAKE IT PRESCRIBED. THIS MEDICATION HAVE A TENDENCY TO BE ABUSED, HABIT-FORMING, AND IT CAN CAUSE SEVERE CONSTIPATION ALONG WITH OTHER ALLERGIC REACTIONS. LONG-TERM USE OF NARCOTIC MEDICATIONS HAVE SHOWN TO INCREASE SENSITIVITY TO PAIN. Code(s): F11.20 - Opioid dependence, uncomplicated Category: Medical Qualifiers: Substance use status: uncomplicated Qualified Code(s): F11.20 - Opioid dependence, uncomplicated (6) Pain management: Code(s): R52 - Pain, unspecified Category: Medical (7) Prostate cancer: Comment: 12/02 PSA 5.4, high risk [place] 3 + 5, 4 cores Code(s): C61 - Malignant neoplasm of prostate Category: Medical Plan Chief Complaint Patient came in for his regular medication refill Also has been sick for the past 3-4 days and since yesterday having pain right lower quadrant abdomen which comes and goes Assessment and Plan 69-year-old male with a history of chronic obstructive pulmonary disease and prostate cancer, presenting with recent onset abdominal pain potentially indicative of appendicitis. The patient reports the pain started approximately 1-2 days ago and is localized in the right lower quadrant, an area consistent with appendiceal involvement. The patient denies nausea but has had a recent history of respiratory symptoms attributed to COPD exacerbation, which have since improved. Examination reveals tenderness without significant guarding where the appendix is anatomically located. Given the acute nature and location of the pain, appendicitis is highly likely. Other causes, such as renal calculi or urinary tract infection, have been considered less likely due to the absence of hematuria, urinary symptoms, and initial clinical evaluation. 1. Chronic Obstructive Pulmonary Disease Copd The patient had a recent episode of significant coughing and wheezing, which has since improved likely due to self-resolution. No acute intervention is necessary at this moment as the symptoms have subsided. Continued avoidance of smoking and exposure to respiratory irritants is advised to prevent exacerbations. 2. Acute Appendicitis The patient is directed to visit the emergency department for immediate evaluation and management due to the suspected appendicitis. Immediate medical attention is prioritized due to the risk of appendiceal rupture, especially given the current holiday period and potential delays in outpatient diagnostic testing. Patient was instructed to go to emergency room 3- history of numerous back surgery and cervical spine surgery, continued to have pain and is on narcotic pain management, refill sent Problem List - Acute Appendicitis - Chronic Obstructive Pulmonary Disease (COPD) - History of prostate cancer Cancer - failed back syndrome - narcotic dependence Patient Instructions - Proceed to the emergency room as soon as possible for further evaluation and potential treatment of suspected appendicitis. ER physician notified - Abstain from smoking and follow COPD management strategies to prevent exacerbations. - Monitor symptoms and seek immediate care if abdominal pain increases, fever develops, or new symptoms arise. - Schedule a follow-up with urology as planned for further evaluation related to prior cancer history. - Maintain hydration and a balanced diet to support overall health. 45 minutes spent in care of this patient including coordination of care Medications: Refilled 2 cyclobenzaprine 5 mg PO BEDTIME PRN 30 tabs 0RF muscle spasm 30 days M62.838 - Other muscle spasm, R52 - Pain, unspecified gabapentin 300 mg PO BID 60 caps 0RF 30 days oxycodone partial refill allowed 10 mg PO TID 90 tabs 0RF pain 30 days F11.20 - Opioid dependence, uncomplicated, M96.1 - Postlaminectomy syndrome, not elsewhere classified, R52 - Pain, unspecified
== END 2024-10-06 12:08 | disposition home or self-care (01) ==
PROVIDERS: PCP Internal Medicine; Visit Provider Internal Medicine
DX: R10.31 Right lower quadrant pain (principal); J41.8 Mixed simple and mucopurulent chronic bronchitis; F11.20 Opioid dependence, uncomplicated; C61 Malignant neoplasm of prostate; M96.1 Postlaminectomy syndrome, not elsewhere classified; Z72.0 Tobacco use

== ENCOUNTER 2024-10-06 10:19 | Emergency (ER) | payer MEDICARE, SELFPAY ==
[2024-10-06 10:23] VITALS: BP 150/71; PULSE 79; RESP 16; TEMP 36; O2SAT 98; BMI 24.4
[2024-10-06 10:40] LABS: Basophils Percent Auto 0.4 % (0-2); Eosinophils Absolute Auto 0.2 X10*3/uL (0.0-0.4); Eosinophils Percent Auto 1.9 % (0-4); Hematocrit 38.6 % (42.0-52.0); Hemoglobin 13.3 g/dl (14.0-18.0); Imm Gran Abs Auto 0.03 X10*3/uL (0.00-0.03); Imm Gran Pct Auto 0.3 % (0.0-0.4); Lymphocytes Absolute Auto 1.8 X10*3/uL (1.2-4.9); Lymphocytes Percent Auto 17.2 % (20-40); MANUAL DIFF FLAG NO; Mean Corpuscular HGB Conc 34.5 g/dl (31.0-36.0); Mean Corpuscular Hemoglobin 32.8 pg (27.0-33.0); Mean Corpuscular Volume 95.3 fL (80.0-98.0); Mean Platelet Volume 8.6 fL (9.4-12.4); Monocytes Absolute Auto 0.6 X10*3/uL (0.1-1.2); Monocytes Percent Auto 5.5 % (2-11); Neutrophils Absolute Auto 7.9 x10*3/uL (2.0-8.3); Neutrophils Percent Auto 74.7 % (45-73); Platelet Count 249 X10*3/uL (160-400); Red Blood Count 4.05 X10*6/uL (4.60-5.80); Red Cell Distribution Width 12.7 % (11.0-16.0); White Blood Count 10.6 X10*3/uL (4.8-10.8)
[2024-10-06 10:41] LABS: Appearance Urine Clear; Color Urine Yellow; Glucose Urine UA Negative (Negative); Leukocyte Esterase Urine Negative (Negative); Nitrite Urine Negative (Negative); PH 5.5 (5.0-9.0); Urine Blood Negative (Negative); Urine Ketones Negative (Negative); Urine Protein Negative (Neg-Trace)
[2024-10-06 10:59] LABS: Alanine Aminotransferase 21 U/L (0-40); Albumin Level 4.1 g/dL (3.5-5.0); Alkaline Phosphatase 93 U/L (39-117); Anion Gap 18 (12-20); Aspartate Amino Transferase 22 U/L (5-37); Bilirubin Direct 0.2 mg/dL (0.0-0.5); Bilirubin Total 0.5 mg/dL (0.0-1.0); Blood Urea Nitrogen 21 mg/dL (9-16); Calcium 9.2 mg/dL (8.4-10.2); Carbon Dioxide 22 mmol/L (22-29); Chloride 102 mmol/L (96-108); Creatinine Clr Calc Pharmacy 76.3; Estimated Glomerular Filt Rate > 60; Glucose Random 108 mg/dL (60-115); Lipase 9 U/L (8-78); Potassium 4.5 mmol/L (3.3-5.1); Sodium 137 mmol/L (135-145); Total Protein 7.2 g/dL (6.5-8.0)
== END 2024-10-06 17:03 | disposition left against medical advice (07) ==
PROVIDERS: Emergency Medicine; Emergency Provider Emergency Medicine; PCP Internal Medicine
DX: R10.31 Right lower quadrant pain (principal); Z53.21 Procedure and treatment not carried out due to patient leaving prior to being seen by health care provider
CPT/HCPCS: 36415; 80048; 80076; 81003; 83690; 85025; 99212; 99282; 99283

== ENCOUNTER → 2024-11-02 09:16 | Outpatient (BNVA) | payer MEDICARE, SELFPAY | PROVIDERS: PCP Internal Medicine; Visit Provider Internal Medicine ==

== ENCOUNTER 2024-11-09 10:36 | Outpatient (AMB) | payer MEDICARE, SELFPAY ==
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
[2024-11-09 10:44] VITALS: BP 138/74; PULSE 80; O2SAT 97; BMI 24.8
== END 2024-11-09 11:07 | disposition home or self-care (01) ==
PROVIDERS: PCP Internal Medicine; Visit Provider Internal Medicine
DX: J41.8 Mixed simple and mucopurulent chronic bronchitis (principal); J41.0 Simple chronic bronchitis; F11.20 Opioid dependence, uncomplicated; M96.1 Postlaminectomy syndrome, not elsewhere classified; Z72.0 Tobacco use; K21.9 Gastro-esophageal reflux disease without esophagitis; I10 Essential (primary) hypertension; R52 Pain, unspecified; M62.838 Other muscle spasm; Z23 Encounter for immunization

== ENCOUNTER → 2024-11-09 10:36 | Outpatient (BNVA) | payer MEDICARE, SELFPAY | PROVIDERS: PCP Internal Medicine; Visit Provider Internal Medicine | DX: Z23 Encounter for immunization (principal); M96.1 Postlaminectomy syndrome, not elsewhere classified; J41.8 Mixed simple and mucopurulent chronic bronchitis; J41.0 Simple chronic bronchitis; K21.9 Gastro-esophageal reflux disease without esophagitis; I10 Essential (primary) hypertension; F11.20 Opioid dependence, uncomplicated; R52 Pain, unspecified; M62.838 Other muscle spasm; F17.200 Nicotine dependence, unspecified, uncomplicated; Z71.6 Tobacco abuse counseling | CPT/HCPCS: 90471; 90656; 99212 ==

== ENCOUNTER 2024-12-07 09:28 | Outpatient (AMB) | payer MEDICARE, SELFPAY ==
--- NOTE | 2024-12-07 09:36 | MHC.PC.OV ---
Vital Signs 12/07/24 09:37 Height 5 ft 11 in Weight 176 lb 3 oz BMI 24.6 BP 130/66 Blood Pressure Location Rt brachial Position Sitting Pulse 84 Pulse Source Pulse Oximeter Pulse Oximetry (%) 98 Oxygen Delivery Method Room Air Intake Visit Reasons: med visit Allergies No Known Allergies Allergy (Verified 12/07/24 09:37) Medication List - Last Reconciled 12/07/24 by Lloyd Woods MD albuterol sulfate 90 mcg/actuation (ProAir HFA) 1 inh inhalation QID PRN 30 days amlodipine 10 mg PO DAILY 90 days Anoro Ellipta 62.5-25 mcg/actuation (umeclidinium-vilanterol) 1 inh inhalation DAILY NS cholecalciferol (vitamin D3) 25 mcg PO DAILY 90 days cyclobenzaprine 5 mg PO BEDTIME PRN 30 days fluticasone furoate 27.5 mcg/actuation (Flonase Sensimist) 1 spray intranasal DAILY 30 days gabapentin 300 mg PO BID 30 days ipratropium-albuterol 0.5 mg-3 mg(2.5 mg base)/3 mL 3 mL inhalation Q6-8H PRN 30 days leuprolide acetate (6 month) (Eligard) 45 mg subcut [id number] lisinopril 40 mg PO DAILY 90 days montelukast 10 mg PO DAILY 90 days omeprazole 20 mg PO DAILY oxycodone 10 mg PO TID 30 days sodium,potassium,mag sulfates 17.5-3.13-1.6 gram (Suprep Bowel Prep Kit) DILUTE; drink full amount early evening before AND next morning at least 2 hr before procedure; follow w 960 mL water PO sucralfate (Carafate) 10 mL PO Q6H 10 days Tobacco use date assessed: 12/07/24 Fall risk assessment: No Falls in past year Last assessed Fall Risk: 12/07/24 Dental Screening Dental Screen Date: 12/07/24 Did you have a dental visit in the last 12 months?: Yes Did you have a dental problem in the last 6 months where you did not have access to dental care?: No Was dental information given to patient?: Patient has dentist HPI med visit HPI Details The patient is a 69-year-old male presenting with chronic pain management and visual disturbances - Chronic Pain Syndrome: The patient reports long-standing chronic pain, unchanged in severity, pain medication changed to fentanyl patch, today as oxycodone 10 mg t.i.d. is not controlling the Patient have history of failed back syndrome - Bilateral Shoulder Osteoarthritis: Complaints of significant bilateral shoulder pain negatively impact sleep and functionality. A chronic issue, surgical intervention has been discussed; cortisone injections are planned for symptomatic relief. - Visual Disturbances: Vision episodes characterized by short-term blurriness and dizziness have been noted during the day, with some preceding nausea. Patient lacks recent ocular evaluations and has been advised on eye examination follow-ups. - Nicotine Dependence: Smoking cessation challenges acknowledged by the patient, continuing to smoke despite health discussions. Problem List - Chronic Pain Syndrome - Bilateral Shoulder Osteoarthritis - Visual Disturbances - Nicotine Dependence Patient Instructions - Try the fentanyl patch - Check with your pharmacy regarding the patch and follow up on any required authorizations. - Attend the scheduled cortisone injections for your shoulders. - Book an appointment with an eye doctor for vision blurriness evaluation. Review of Systems - Eyes: Reports episodes of blurred and wacky vision, sometimes with dizziness. - Neurologic: Reports episodes of dizziness. - Musculoskeletal: Reports persistent pain in both shoulders, disrupting sleep. - General: No fever no chills - Ear nose throat: No sore throat no hearing difficulty no ear pain - Cardiovascular: No syncope, no chest pain, no palpitations - Gastrointestinal: No nausea vomiting or diarrhea - Endocrine: No polyuria polydipsia no heat intolerance - Genitourinary: No dysuria , no blood in urine Physical Exam General: No acute distress HEENT: Blurry vision episodes, no acute findings PERRLA EOMI Neck: Supple Respiratory system: Able to talk in full sentences, no audible wheeze cardiovascular: S1-S2 regular in rate and rhythm Gastrointestinal: No pain Extremities: Tingling and numbness in arms, no new findings PULMONOLOGY TECHNICIAN: Alert awake oriented x3 motor sensory intact Skin: Normal turgor PFSH Medical History Arthritis Back pain Hx of radiation therapy HTN (hypertension) Colitis Colon cancer screening Nocturia Heartburn Muscle spasms of neck Pain management Opioid dependence Hypertension, essential GERD (gastroesophageal reflux disease) Smokers' cough Drug induced constipation COPD (chronic obstructive pulmonary disease) Tobacco abuse Asthma Failed back syndrome Surgical History H/O colonoscopy (~06/04/24) History of colonoscopy (04/10/10) History of rotator cuff surgery History of repair of laceration History of fusion of cervical spine History of laminectomy Family History Father HTN (hypertension) Lung cancer Mother HTN (hypertension) Dementia Breast cancer Maternal Grandmother No problems noted. Maternal Grandfather No problems noted. Paternal Grandfather No problems noted. Paternal Grandmother No problems noted. Brother Throat cancer Lung cancer Brother No problems noted. Daughter No problems noted. Daughter No problems noted. Sister Ovarian cancer Sister No problems noted. Sister No problems noted. Sister No problems noted. Maternal Aunt Breast cancer Social History Household Members: Family Housing: House Are you a primary primary care md to a significant other at home: No Do you presently have visiting nurse or other home services: No Alcohol intake: current Alcohol intake frequency: holidays/special occasions only Patient Tobacco Use Status: Current everyday Tobacco user Tobacco use type: Cigarette Cigarette Packs Per Day: 1.0 Cigarettes Per Day: 20.0 e-Cigarette/Vaping Use: Never Used service: No Current occupational status: disabled Cognitive needs: No Hearing needs: No Vision needs: Yes Questionnaire PHQ-9 Over the last 2 weeks, how often have you been bothered by any of the following problems? 1. Little interest or pleasure in doing things: not at all 2. Feeling down, depressed, or hopeless: not at all 3. Trouble falling or staying asleep, or sleeping too much: not at all 4. Feeling tired or having little energy: not at all 5. Poor appetite or overeating: not at all 6. Feeling bad about yourself - or that you are a failure or have let yourself or your family down: not at all 7. Trouble concentrating on things, such as reading the newspaper or watching television: not at all 8. Moving or speaking so slowly that other people could have noticed. Or the opposite - being so fidgety or restless that you have been moving around a lot more than usual: not at all 9. Thoughts that you would be better off or of hurting yourself in some way: not at all Total score: 0 Depression Screening Interpretation: Negative Depression Screening Done: Yes 71911 - PHQ-9 Billing: Yes Source: Developed by Drs. Juan Motley, Blanca Manzo, Kelton Mooney and colleagues, with an educational homa from [employer]!. Thrive Questionnaire Date Thrive assessed: 12/07/24 I am a: Patient What is your living situation today?: I have a steady place to live Within the past 12 months, did the food you bought not last and you didn't have the money to get more?: I choose not to answer this question Within the past 12 months, did you worry whether your food would run out before you got money to buy more?: I choose not to answer this question Do you have trouble paying for medicines?: I choose not to answer this question Do you have trouble getting transportation to medical appointments?: I choose not to answer this question Do you have trouble paying your heating and electricity bill?: I choose not to answer this question Do you have trouble taking care of your child, family member or friend?: I choose not to answer this question Do you have trouble with day-to-day activities such as bathing, preparing meals, shopping, managing finances, etc.?: I choose not to answer this question Are you currently unemployed and looking for a job?: I choose not to answer this question Are you interested in more education?: I choose not to answer this question Please select the resources that you would like help with: None Currently or been in a relationship where the following occur: I choose not to answer THRIVE Score: 0 AUDIT C Alcohol Use Questionnaire (AUDIT-C) 1. How often do you have a drink containing alcohol?: Monthly or less 2. How many drinks containing alcohol do you have on a typical day when you are drinking?: 1 or 2 3. How often do you have six or more drinks on one occasion?: Less than monthly Total Score: 2 Score Reviewed/Action Taken: Yes VIVIANA-7 AMB Questionnaire VIVIANA-7 Date VIVIANA - 7 assessed: 12/07/24 Feeling nervous, anxious, or on edge: 0 = Not at all Not being able to stop or control worryin = Not at all Worrying too much about different things: 0 = Not at all Trouble relaxin = Not at all Being so restless that it is hard to sit still: 0 = Not at all Becoming easily annoyed or irritable: 0 = Not at all Feeling afraid as if something awful might happen: 0 = Not at all Total VIVIANA-7 score (0-4 normal; 5-9 mild; 10-14 moderate; 15-21 severe): 0 Source: Developed by Drs. Juan Motley, Blanca Manzo, Kelton Mooney and colleagues, with an educational homa from [employer] - [employer]!. VIVIANA-7 Assessment Billing VIVIANA-7 Assessment Tool: VIVIANA-7 Assessment 81402 Physical exam (Primary Care) Vital Signs: Last Vital Signs Pulse 84 12/07/24 09:37 BP 130/66 12/07/24 09:37 Pulse Ox 98 12/07/24 09:37 Oxygen Delivery Method Room Air 12/07/24 09:37 BMI result Body Mass Index 24.6 Tobacco/Smoking Status: Tobacco use Status Tobacco use date assessed 12/07/24 12/07/24 09:38 Patient Tobacco Use Status Current everyday Tobacco 12/07/24 09:38 Tobacco use type Cigarette 12/07/24 09:38 e-Cigarette/Vaping Use Never Used 12/07/24 09:38 Are you ready to quit: No Tobacco cessation counseling provided: Yes Relapse Prevention: discussed the importance of a supportive environment CPT code: 53315 - 4-10 Minutes PHQ-9: PHQ-9 Score PHQ-9: Total score 0 12/07/24 09:53 Depression Screening Interpretation: Negative Thrive Assessment: Date of Thrive Assessment Date Thrive assessed 12/07/24 12/07/24 09:38 Currently or been in a relationship where the following occur: I choose not to answer Coding Level of Care Code Est Pt Level 4 (54700) Diagnoses Blurring of vision H53.8 Failed back syndrome M96.1 Tobacco abuse Z72.0 Uncomplicated opioid dependence F11.20 Substance use status: uncomplicated Pain management R52 Muscle spasms of neck M62.838 Additional Codes VIVIANA-7 Assessment Billing - VIVIANA-7 Assessment Tool: VIVIANA-7 Assessment 49171 ([id number]) PHQ-9 - 27022 - PHQ-9 Billing: Yes ([id number]) Vital Signs *Quality* - CPT code: 44574 - 4-10 Minutes ([id number]) Assessment & Plan Assessment & Plan (1) Blurring of vision: Code(s): H53.8 - Other visual disturbances Category: Medical (2) Failed back syndrome: Code(s): M96.1 - Postlaminectomy syndrome, not elsewhere classified Category: Medical (3) Tobacco abuse: Code(s): Z72.0 - Tobacco use Category: Medical (4) Opioid dependence: Comment: CONTROLLED NATURE OF MEDICATION WAS DISCUSSED, IT IS IMPORTANT TO NOTIFY ME OF CHANGE OF PHARMACY, OR IF TRAVELING. DO NOT SHARE THE MEDICATION WITH ANYBODY, KEEP IT SAFE AWAY FROM THE HANDS OF SMALL CHILDREN, AND ONLY TAKE IT PRESCRIBED. THIS MEDICATION HAVE A TENDENCY TO BE ABUSED, HABIT-FORMING, AND IT CAN CAUSE SEVERE CONSTIPATION ALONG WITH OTHER ALLERGIC REACTIONS. LONG-TERM USE OF NARCOTIC MEDICATIONS HAVE SHOWN TO INCREASE SENSITIVITY TO PAIN. Code(s): F11.20 - Opioid dependence, uncomplicated Category: Medical Qualifiers: Substance use status: uncomplicated Qualified Code(s): F11.20 - Opioid dependence, uncomplicated (5) Pain management: Code(s): R52 - Pain, unspecified Category: Medical (6) Muscle spasms of neck: Code(s): M62.838 - Other muscle spasm Category: Medical Plan The patient is a 69-year-old male presenting with chronic pain management and visual disturbances - Chronic Pain Syndrome: The patient reports long-standing chronic pain, unchanged in severity, pain medication changed to fentanyl patch, today as oxycodone 10 mg t.i.d. is not controlling the Patient have history of failed back syndrome - Bilateral Shoulder Osteoarthritis: Complaints of significant bilateral shoulder pain negatively impact sleep and functionality. A chronic issue, surgical intervention has been discussed; cortisone injections are planned for symptomatic relief. - Visual Disturbances: Vision episodes characterized by short-term blurriness and dizziness have been noted during the day, with some preceding nausea. Patient lacks recent ocular evaluations and has been advised on eye examination follow-ups. - Nicotine Dependence: Smoking cessation challenges acknowledged by the patient, continuing to smoke despite health discussions. Problem List - Chronic Pain Syndrome - Bilateral Shoulder Osteoarthritis - Visual Disturbances - Nicotine Dependence Patient Instructions - Try the fentanyl patch - Check with your pharmacy regarding the patch and follow up on any required authorizations. - Attend the scheduled cortisone injections for your shoulders. - Book an appointment with an eye doctor for vision blurriness evaluation. Orders: Referrals Ophthalmology Referral H53.8 - Other visual disturbances Medications: New fentanyl 12 mcg/hr Partial Fill upon patient request. 1 patch transdermal Q72H 30 days 5 ea 0RF Refilled cyclobenzaprine 5 mg PO BEDTIME 30 days PRN 30 tabs 0RF muscle spasm M62.838 - Other muscle spasm, R52 - Pain, unspecified gabapentin 300 mg PO BID 30 days 60 caps 0RF On Hold oxycodone Hold Comment: Doctor's Order 10 mg PO TID 30 days 90 tabs 0RF pain F11.20 - Opioid dependence, uncomplicated, M96.1 - Postlaminectomy syndrome, not elsewhere classified, R52 - Pain, unspecified
[2024-12-07 09:37] VITALS: BP 130/66; PULSE 84; O2SAT 98; BMI 24.6
--- OUTSIDE RECORDS SUMMARY | 2024-12-07 09:59 | XMS_ITS | Patient Health Record ---
Author Organization [facility] Address [address] [place] [address] Care Team Providers Care Hvac Sales Engineer Name Role Phone Chuck VEGA, [facility] Primary [facility] Provider Talha Sanabria Unavailable [phone] Allergies No Known Allergies Reason For Referral No Information Medications Medication SIG (Take, Route, Fr equency, Duration) Notes Start Date End Date Status Montelukast Sodium A ctive amLODIPine Besylate Active Lisinopril Active Finasteride Active Omeprazole Active Gabapentin Active oxyCODONE HCl Active Anoro Ellipta Active Ciclopirox 0.77 % 1 application Corporate Technical Recruiter ally Twice a day for 365 days Active Vitamin D3 Active Social History Tobacco Use: Social History Observation Description Date Details (start date - stop date) Current Smoker NA - NA Tobacco Use/Smoking Question Answer Notes Are you a: current smoker Alcohol Screen Question Answer Notes Did you have a drink containing alcohol in the p ast year? Yes Points 0 Interpretation Negative Problems Problem Type SNOMED Code ICD Code Onset Dates Problem Status W/U Status Risk Notes Problem [id number] Fungal infection of nail (B35.1) Active confirmed Rx management (4) Vital Signs Height 5 ft 11 in in 06/22/2024 Weight 168 lbs 06/22/2024 BMI 23.43 kg/m2 06/22/2024 Encounters Encounter Location Date Provider Diagnosis [facility] [address] [place] [address] 06/22/2024 Talha Soto Fungal infection of nail B35.1 ; Pain in right toe(s) M79.674 and Pain in left toe(s) M79.675 [facility] [address] [place] [address] 06[facility]08[facility]20[facility] [place] [address] [place] [address] 09/21/2024 [facility] [place] [address] [place] [address] 10/12/2024 Talha Soto Assessments Encounter Date Diagnosis (ICD Code) Assessment Notes Treatment Notes Treatment Clinical Notes Section Notes 06/22/2024 Pain in right toe(s) (ICD-10 - M79.674) 06/22/2024 Fungal infection of nail (ICD-10 - B35.1) Rx management (4) 06/22/2024 Pain in left toe(s) (ICD-10 - M79.675) Plan Of Treatment No Information Insurance Providers Payer Name Payer Address Payer Phone Subscriber Number Group Number Insured Name Patient Relationship to Insured Coverage Start Date Coverage End Date [facility] [employer] Claims [address] [place] [phone] [id number] Daryn Duncan Self - patient is the insured Medical (General) History Medical History History ICD Code Arthritis asthma Back,Hip,and Knee pain Cancer Hypertension Stomach ulcer Measles Chicken pox Joint implants/screws Surgical History Surgery Date(Month/Year) neck surgery Lower back surgery shoulder surgery
--- OUTSIDE RECORDS SUMMARY | 2024-12-07 09:59 | XMS_ITS ---
Author Organization [facility] Address [address] [place] [address] Care Team Providers Care Manager Registration Name Role Phone Chuck VEGA, Lloyd Primary Care Provider Talha Sanabria Unavailable [phone] Encounters Encounter Location Date Provider Diagnosis [address] [address] 10/12/2024 Talha Soto Plan Of Treatment No Information Progress Notes * Daryn DUNCANDOB: [birth year] (69 yo M)Acc No.[id number]:10/12/2024 Progress Note Patient:?Daryn DUNCAN Provider:?Talha Soto DPM :1955???Age:69 Y???Sex:Male Dylan e:10/12/2024 [address] Pcp:Lloyd Woods MD Subjective: * Chief Complaints: * ??? * Medical History:? Objective: * Vitals:? Assessment: Plan: * Treatment: * Images: * The named appointment provid er may or may not be the originator of this progress note, and it is not deemed complete until electronically signed by the appointment provider. Sign off status: Pending * Provider:Ari Soto DPM Date:?2023 Generated for Printi ng/Fakarishmag/eTransmitting on:?12/07/2024 09:59 AM EST
--- OUTSIDE RECORDS SUMMARY | 2024-12-07 09:59 | XMS_ITS ---
Author Organization [facility] Address [address] [place] [address] Care Team Providers Care Hot Walker Name Role Phone Chuck VEGA, Asma Primary Care Provider Talha Sanabria Unavailable [phone] REASON FOR VISIT SD cx 10/12 Encounters Encounter Location Date Provider Diagnosis [facility] [address] [place] [address] 10/12/2024 Talha Soto Plan Of Treatment No Information Progress Notes * DAKOTADarynDOB: [birth year] (69 yo M)Acc No.[id number]:10/12/2024 Patient:?Daryn DUNCAN :1955???Age:69 Y???Sex:Male Address:[address] [place] [address] * true * Date:? Generated for Tiara solis/Stormy/eTransmitting on:?12/07/2024 09:59 AM EST
--- OUTSIDE RECORDS SUMMARY | 2024-12-07 10:00 | XMS_ITS ---
Author Organization [facility] Address [address] [place] [address] Care Team Providers Care Dry Press Operator Name Role Phone Chuck VEGA, Lloyd Primary Care Provider Talha Sanabria Unavailable [phone] Medications Medication SIG (Take, Route, Fr equency, Duration) Notes Start Date End Date Status Montelukast Sodium A ctive amLODIPine Besylate Active Anoro Ellipta Active Ciclopirox 0.77 % 1 application Stained Glass Window Designer ally Twice a day for 365 days Active Vitamin D3 Active Lisinopril Active Finasteride Active Omeprazole Active Gabapentin Active oxyCODONE HCl Active Encounters Encounter Location Date Provider Diagnosis [address] [address] 09/21/2024 Talha Soto Plan Of Treatment No Information Progress Notes * Daryn DUNCANDOB: [birth year] (69 yo M)Acc No.[id number]:09/21/2024 Progress Note Patient:?Daryn DUNCAN Provider:?Talha Soto DPM :1955???Age:69 Y???Sex:Male Dylan e:09/21/2024 Address[address] [place] Pcp:Lloyd Woods MD Subjective: * Chief Complaints: * ??? * Medical History:?Arthritis, Asthma, Back,Hip,and Knee pain, Cancer, Hypertension, Stomach ulcer, Measles, Chicken pox, Joint implants/screws. * Medications:?Taking Vitamin D3 , Taking Montelukast Sodium , Taking amLODIPine Besylate , Taking Lisinopril , Taking Finasteride , Taking Omeprazole , Taking Gabapentin , Taking oxyCODONE HCl , Taking Anoro Ellipta , Taking Ciclopirox 0.77 % Gel 1 application Externally Twice a day Objective: * Vitals:? Assessment: Plan: * Treatment: * Images: * The named appointment provid er may or may not be the originator of this progress note, and it is not deemed complete until electronically signed by the appointment provider. Sign off status: Pending * Provider:?Talha Soto DPM Date:?2023 Generated for Tiara [employer]is/Stormy/Tiffanie on:?12/07/2024 09:59 AM EST
== END 2024-12-07 10:48 | disposition home or self-care (01) ==
PROVIDERS: PCP Internal Medicine; Visit Provider Internal Medicine
DX: H53.8 Other visual disturbances (principal); M96.1 Postlaminectomy syndrome, not elsewhere classified; Z72.0 Tobacco use; F11.20 Opioid dependence, uncomplicated; R52 Pain, unspecified; M62.838 Other muscle spasm

== ENCOUNTER → 2024-12-07 09:28 | Outpatient (BNVA) | payer MEDICARE, SELFPAY | PROVIDERS: PCP Internal Medicine; Visit Provider Internal Medicine | DX: H53.8 Other visual disturbances (principal); M96.1 Postlaminectomy syndrome, not elsewhere classified; M62.838 Other muscle spasm; G89.4 Chronic pain syndrome; F11.20 Opioid dependence, uncomplicated; F17.210 Nicotine dependence, cigarettes, uncomplicated | CPT/HCPCS: 96127; 99212 ==

== ENCOUNTER 2024-12-10 13:52 | Outpatient (AMB) | payer MEDICARE, MEDICAID, SELFPAY ==
--- NOTE | 2024-12-10 13:55 | MHC.OFFVIS ---
Vital Signs 12/10/24 13:56 Height 5 ft 11 in Weight 180 lb 12.465 oz BMI 25.2 BP 140/80 H Blood Pressure Location Lt brachial Position Sitting Pulse 65 Pulse Source Pulse Oximeter Pulse Oximetry (%) 96 Oxygen Delivery Method Room Air Intake Visit Reasons: copd Ep Tech Required: No Allergies No Known Allergies Allergy (Verified 12/10/24 13:58) HPI HPI copd: Details: 69-year-old gentleman, active 50+ pack-year smoker, now followed for emphysema and pulmonary nodules.? He continues on Anoro and albuterol MDI with reasonable control of his symptoms.? He denies any recent exacerbations. He has has baseline cough with no significant changes. [facility] Medical History Arthritis Back pain Hx of radiation therapy HTN (hypertension) Colitis Colon cancer screening Nocturia Heartburn Muscle spasms of neck Pain management Opioid dependence Hypertension, essential GERD (gastroesophageal reflux disease) Smokers' cough Drug induced constipation COPD (chronic obstructive pulmonary disease) Tobacco abuse Asthma Failed back syndrome Surgical History H/O colonoscopy (~06/04/24) History of colonoscopy (04/10/10) History of rotator cuff surgery History of repair of laceration History of fusion of cervical spine History of laminectomy Family History Father HTN (hypertension) Lung cancer Mother HTN (hypertension) Dementia Breast cancer Maternal Grandmother No problems noted. Maternal Grandfather No problems noted. Paternal Grandfather No problems noted. Paternal Grandmother No problems noted. Brother Throat cancer Lung cancer Brother No problems noted. Daughter No problems noted. Daughter No problems noted. Sister Ovarian cancer Sister No problems noted. Sister No problems noted. Sister No problems noted. Maternal Aunt Breast cancer Social History Household Members: Family Housing: House Are you a primary child care center assistant director to a significant other at home: No Do you presently have visiting nurse or other home services: No Alcohol intake: current Alcohol intake frequency: holidays/special occasions only Patient Tobacco Use Status: Current everyday Tobacco user Tobacco use type: Cigarette Cigarette Packs Per Day: 1.0 Cigarettes Per Day: 20.0 e-Cigarette/Vaping Use: Never Used service: No Current occupational status: disabled Cognitive needs: No Hearing needs: No Vision needs: Yes Review of Systems Const Denies daytime sleepiness, Denies excessive sweating, Denies fatigue, Denies fever(s), Denies lethargy, Denies malaise, Denies night sweats, Denies snoring and Denies weight loss Eyes Denies blurry vision and Denies itchy eyes ENT Denies nasal congestion, Denies post nasal drip, Denies sinus pain, Denies sinus pressure and Denies other ( Thrush) Card Denies chest pain, Denies pedal edema, Denies dyspnea, Denies orthopnea and Denies paroxysmal nocturnal dyspnea Resp Denies cough, Denies hemoptysis, Denies excessive phlegm production, Denies dyspnea, Denies snoring and Denies wheezing GI Denies abdominal pain and Denies heartburn Musc Denies myalgias, Denies arthralgias and Denies joint swelling Skin/Breast Denies rash Neuro Denies memory loss and Denies seizure-like activity Psych Denies abnormal sleep pattern, Denies anxiety and Denies memory loss Endo Denies excessive sweating, Denies fatigue and Denies heat intolerance John/Lymph Denies easy bruising Aller/Immun Denies itchy eyes, Denies seasonal rhinorrhea and Denies wheezing Physical Exam Vital Signs: Last Vital Signs Pulse 65 12/10/24 13:56 BP 140/80 H 12/10/24 13:56 Pulse Ox 96 12/10/24 13:56 Oxygen Delivery Method Room Air 12/10/24 13:56 BMI result Body Mass Index 25.2 Const General: no acute distress and alert Nutritional Appearance: not obese Orientation/consciousness: Other orientation findings ( oriented) HEENT Head: Yes atraumatic Eyes General: appearance normal, both eyes and all related structures Sclerae: sclerae normal EOM: EOMs intact bilaterally Neck Neck: Yes supple Lymphatic: no lymphadenopathy noted Resp Effort & Inspection: normal respiratory effort and no use of accessory muscles Auscultation: clear to auscultation bilaterally Cardio Rate: regular rate Rhythm: regular rhythm Heart sounds: no gallops, no murmurs and no rubs Skin General skin exam: other ( warm) Extrem General: No clubbing, No cyanosis and No edema Assessment & Plan Assessment & Plan (1) COPD (chronic obstructive pulmonary disease): Code(s): J44.9 - Chronic obstructive pulmonary disease, unspecified Category: Medical Qualifiers: COPD type: chronic bronchitis Chronic bronchitis type: mixed simple and mucopurulent Qualified Code(s): J41.8 - Mixed simple and mucopurulent chronic bronchitis Plan: Well controlled on current regimen of Anoro, duo nebs, and albuterol MDI. Continue current regimen. (2) Personal history of nicotine dependence: Code(s): Z87.891 - Personal history of nicotine dependence Category: Medical Plan: Follow-up lung cancer screening CT chest is pending for January of 2025. Orders: Orders CT lung screening 02/06/25 F17.210 - Nicotine dependence, cigarettes, uncomplicated Medications: New albuterol sulfate 90 mcg/actuation (Proair Digihaler) 2 inhalations inhalation QID 3 ea 2RF Refilled Anoro Ellipta 62.5-25 mcg/actuation (umeclidinium-vilanterol) 1 inh inhalation DAILY 180 ea 2RF NS Discontinued albuterol sulfate 90 mcg/actuation (ProAir HFA) Discontinued Reason: Doctor's Order 1 inh inhalation QID 30 days PRN 18 grams 5RF shortness of breath or wheezing Coding Level of Care Code Est Pt Level 4 (82085) Diagnoses Mixed simple and mucopurulent chronic bronchitis J41.8 COPD type: chronic bronchitis Chronic bronchitis type: mixed simple and mucopurulent Personal history of nicotine dependence Z87.891
[2024-12-10 13:56] VITALS: BP 140/80; PULSE 65; O2SAT 96; BMI 25.2
== END 2024-12-10 14:16 | disposition home or self-care (01) ==
PROVIDERS: PCP Internal Medicine; Visit Provider Internal Medicine Pulmonary Disease
DX: J41.8 Mixed simple and mucopurulent chronic bronchitis (principal); Z87.891 Personal history of nicotine dependence
CPT/HCPCS: 99214

== ENCOUNTER → 2024-12-10 13:52 | Outpatient (BNVA) | payer MEDICARE, MEDICAID, SELFPAY | PROVIDERS: PCP Internal Medicine; Visit Provider Internal Medicine Pulmonary Disease | DX: J41.8 Mixed simple and mucopurulent chronic bronchitis (principal); R91.8 Other nonspecific abnormal finding of lung field; F17.210 Nicotine dependence, cigarettes, uncomplicated | CPT/HCPCS: 99212 ==

== ENCOUNTER 2024-12-31 15:02 | Outpatient (AMB) | payer MEDICARE, MEDICAID, SELFPAY ==
--- NOTE | 2024-12-31 15:04 | A.OFFPC_ITS ---
Vital Signs 12/31/24 15:10 Height 5 ft 11 in Weight 180 lb 2 oz BMI 25.1 BP 148/80 H Blood Pressure Location Rt brachial Position Sitting Respiration 16 Pulse 64 Pulse Source Pulse Oximeter Pulse Oximetry (%) 94 Intake Visit Reasons: Med Refill Allergies No Known Allergies Allergy (Verified 12/31/24 15:11) Medication List - Last Reconciled 12/31/24 by Lloyd Woods MD albuterol sulfate 90 mcg/actuation 2 puffs inhalation Q4-6H PRN amlodipine 10 mg PO DAILY 90 days Anoro Ellipta 62.5-25 mcg/actuation (umeclidinium-vilanterol) 1 inh inhalation DAILY NS cholecalciferol (vitamin D3) 25 mcg PO DAILY 90 days cyclobenzaprine 5 mg PO BEDTIME PRN 30 days fentanyl 25 mcg/hr 1 patch transdermal Q72H 30 days fluticasone furoate 27.5 mcg/actuation (Flonase Sensimist) 1 spray intranasal DAILY 30 days gabapentin 300 mg PO BID PRN ipratropium-albuterol 0.5 mg-3 mg(2.5 mg base)/3 mL 3 mL inhalation Q6-8H PRN 30 days leuprolide acetate (6 month) (Eligard) 45 mg subcut [id number] lisinopril 40 mg PO DAILY 90 days montelukast 10 mg PO DAILY 90 days omeprazole 20 mg PO DAILY oxycodone 10 mg PO TID 30 days sucralfate (Carafate) 10 mL PO Q6H 10 days Tobacco use date assessed: 12/31/24 Fall risk assessment: No Falls in past year Last assessed Fall Risk: 12/31/24 Dental Screening Dental Screen Date: 12/31/24 Did you have a dental visit in the last 12 months?: Yes Did you have a dental problem in the last 6 months where you did not have access to dental care?: No Was dental information given to patient?: Patient has dentist HPI Med Refill HPI Details - The patient is a 69-year-old male pres enting with management of pain - Complains of excessive sweating, espec ially at night, and dissatisfaction with the current fentanyl patch 25 mcg regimen aimed at pain relief; expresses a desire to revert to oral medication. - Has experienced chronic back pain and leg pain; the current patch therapy improves leg mobility but not pain. Previously utilized methadone with satisfactory results in pain control. - Insurance limitations impacting his cu rrent treatment regimen, complicating management with the patch. - Seeks advice on transitioning back to oral analgesics while dealing with coverage issues. Problem List - Pain in lower extremities - Cervicalgia (Back pain) - Excessive sweating - History of methadone use for pain vangie beckman Patient Instructions - Continue current patch regimen until t he end of the month. - Revert to oral medication regimen as d iscussed. Next visit - Monitor symptoms and report if problem s persist or worsen. Review of Systems - General: No fever no chills - Neurological: No headaches no dizziness - Ear nose throat: No sore throat no hearing difficulty no ear pain - Cardiovascular: No syncope, no chest pain, no palpitations - Gastrointestinal: No nausea vomiting or diarrhea - Endocrine: No polyuria polydipsia no heat intolerance - Genitourinary: No dysuria , no blood in urine Physical Exam General: No acute distress HEENT: No acute findings Neck: Supple Respiratory system: Able to talk in full sentences, no audible wheeze, lungs are clear cardiovascular: S1-S2 regular in rate and rhythm, blood pressure is 148 Gastrointestinal: No pain Extremities: No new findings COOKER TENDER: Alert awake oriented x3 Skin: Normal turgor PFSH Medical History Arthritis Back pain Hx of radiation therapy HTN (hypertension) Colitis Colon cancer screening Nocturia Heartburn Muscle spasms of neck Pain management Opioid dependence Hypertension, essential GERD (gastroesophageal reflux disease) Smokers' cough Drug induced constipation COPD (chronic obstructive pulmonary disease) Tobacco abuse Asthma Failed back syndrome Surgical History H/O colonoscopy (~06/04/24) History of colonoscopy (04/10/10) History of rotator cuff surgery History of repair of laceration History of fusion of cervical spine History of laminectomy Family History Father HTN (hypertension) Lung cancer Mother HTN (hypertension) Dementia Breast cancer Maternal Grandmother No problems noted. Maternal Grandfather No problems noted. Paternal Grandfather No problems noted. Paternal Grandmother No problems noted. Brother Throat cancer Lung cancer Brother No problems noted. Daughter No problems noted. Daughter No problems noted. Sister Ovarian cancer Sister No problems noted. Sister No problems noted. Sister No problems noted. Maternal Aunt Breast cancer Social History Household Members: Family Housing: House Are you a primary career and guidance counselor to a significant other at home: No Do you presently have visiting nurse or other home services: No Alcohol intake: current Alcohol intake frequency: holidays/special occasions only Patient Tobacco Use Status: Current everyday Tobacco user Tobacco use type: Cigarette Cigarette Packs Per Day: 1.0 Cigarettes Per Day: 20.0 e-Cigarette/Vaping Use: Never Used service: No Current occupational status: disabled Cognitive needs: No Hearing needs: No Vision needs: Yes Questionnaire Thrive Questionnaire Date Thrive assessed: 12/31/24 AUDIT C Alcohol Use Questionnaire (AUDIT-C) 1. How often do you have a drink containing alcohol?: Monthly or less 2. How many drinks containing alcohol do you have on a typical day when you are drinking?: 1 or 2 3. How often do you have six or more drinks on one occasion?: Less than monthly Total Score: 2 Score Reviewed/Action Taken: Yes VIVIANA-7 AMB Questionnaire VIVIANA-7 Date VIVIANA - 7 assessed: 12/07/24 Source: Developed by Drs. Juan Motley, Blanca Manzo, Kelton Mooney and colleagues, with an educational homa from [employer]. Physical exam (Primary Care) Vital Signs: Last Vital Signs Pulse 64 12/31/24 15:10 Resp 16 12/31/24 15:10 BP 148/80 H 12/31/24 15:10 Pulse Ox 94 12/31/24 15:10 BMI result Body Mass Index 25.1 Tobacco/Smoking Status: Tobacco use Status Tobacco use date assessed 12/31/24 12/31/24 15:11 Patient Tobacco Use Status Current everyday Tobacco 12/31/24 15:05 Tobacco use type Cigarette 12/31/24 15:05 e-Cigarette/Vaping Use Never Used 12/31/24 15:05 Thrive Assessment: Date of Thrive Assessment Date Thrive assessed 12/31/24 12/31/24 15:05 Coding Level of Care Code Est Pt Level 3 (53866) Diagnoses Failed back syndrome M96.1 Assessment & Plan Assessment & Plan (1) Failed back syndrome: Code(s): M96.1 - Postlaminectomy syndrome, not elsewhere classified Category: Medical Plan - The patient is a 69-year-old male presenting with management of pain - Complains of excessive sweating, especially at night, and dissatisfaction with the current fentanyl patch 25 mcg regimen aimed at pain relief; expresses a desire to revert to oral medication. - Has experienced chronic back pain and leg pain; the current patch therapy improves leg mobility but not pain. Previously utilized methadone with satisfactory results in pain control. - Insurance limitations impacting his current treatment regimen, complicating management with the patch. - Seeks advice on transitioning back to oral analgesics while dealing with coverage issues. Problem List - Pain in lower extremities - Cervicalgia (Back pain) - Excessive sweating - History of methadone use for pain management Patient Instructions - Continue current patch regimen until the end of the month. - Revert to oral medication regimen as discussed. Next visit - Monitor symptoms and report if problems persist or worsen. Medications: Changed From oxycodone partial refill allowed 10 mg PO TID 30 days 90 tabs 0RF pain F11.20 - Opioid dependence, uncomplicated, M96.1 - Postlaminectomy syndrome, not elsewhere classified, R52 - Pain, unspecified To oxycodone partial refill allowed 10 mg PO TID 9 tabs 0RF pain 3 days F11.20 - Opioid dependence, uncomplicated, M96.1 - Postlaminectomy syndrome, not elsewhere classified, R52 - Pain, unspecified Refilled oxycodone partial refill allowed 10 mg PO TID 30 days 90 tabs 0RF pain F11.20 - Opioid dependence, uncomplicated, M96.1 - Postlaminectomy syndrome, not elsewhere classified, R52 - Pain, unspecified fentanyl 25 mcg/hr Partial Fill upon patient request. 1 patch transdermal Q72H 10 ea 0RF 30 days
[2024-12-31 15:10] VITALS: BP 148/80; PULSE 64; RESP 16; O2SAT 94; BMI 25.1
--- OUTSIDE RECORDS SUMMARY | 2024-12-31 15:12 | XMS_ITS ---
Author Organization [facility] Address [address] [place] [address] Care Team Providers Care Dieing Out Machine Operator Name Role Phone Chuck VEGA, Lloyd Primary Care Provider Talha Sanabria Unavailable [phone] Encounters Encounter Location Date Provider Diagnosis [address] [address] 10/12/2024 Talha oSto Plan Of Treatment No Information Progress Notes * Daryn DUNCANDOB: [birth year] (69 yo M)Acc No.[id number]:10/12/2024 Progress Note Patient:?Daryn DUNCAN Provider:?Talha Soto DPM :1955???Age:69 Y???Sex:Male Dylan e:10/12/2024 Address[place] [address] [place] Pcp:Lloyd Woods MD Subjective: * Chief Complaints: [...] Soto DPM Date:?2023 Generated for Printi ng/Fakarishmag/eTransmitting on:?12/31/2024 03:12 PM EST
--- OUTSIDE RECORDS SUMMARY | 2024-12-31 15:12 | XMS_ITS | Patient Health Record ---
Author Organization [facility] Address [address] [place] [address] Care Team Providers Care Heating Operators Engineer Name Role Phone Chuck VEGA, [facility] Primary Care Provider Talha Sanabria Unavailable [phone] Allergies No Known Allergies Reason For Referral No Information Medications Medication SIG (Take, Route, Fr equency, Duration) Notes Start Date End Date Status Montelukast Sodium A ctive amLODIPine Besylate Active Lisinopril Active Finasteride Active Omeprazole Active Gabapentin Active oxyCODONE HCl Active Anoro Ellipta Active Ciclopirox 0.77 % 1 application Auditing Specialist ally Twice a day for 365 days [...] Problem Status W/U Status Risk Notes Problem [id number] 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 [address] [place] [address] 10/12/2024 Talha Soto Assessments Encounter Date Diagnosis [...] Insured Coverage Start Date Coverage End Date [facility] [employer] Claims [address] [place] [phone] [id number] Daryn Duncan Self - patient is the insured Medical (General) History Medical History History ICD Code Arthritis asthma Back,Hip,and Knee pain Cancer Hypertension Stomach ulcer Measles Chicken pox Joint implants/screws Surgical History Surgery Date(Month/Year) neck surgery Lower back surgery shoulder surgery
--- OUTSIDE RECORDS SUMMARY | 2024-12-31 15:12 | XMS_ITS ---
Author Organization [facility] Address [address] [place] [address] Care Team Providers Care Printing Pressman Name Role Phone Chuck VEGA, Asma Primary Care Provider Talha Sanabria Unavailable [phone] REASON FOR VISIT SD cx 10/12 Encounters Encounter Location Date Provider Diagnosis [facility] [address] [place] [address] 10/12/2024 Tahla Soto Plan Of Treatment No Information Progress Notes * DAKOTADarynDOB: [birth year] (69 yo M)Acc No.[id number]:10/12/2024 Patient:?Daryn DUNCAN :1955???Age:69 Y???Sex:Male Address:[address] [place] [address] * true * Date:? Generated for [employer]/Stormy/eTransmitting on:?12/31/2024 03:11 PM EST
--- OUTSIDE RECORDS SUMMARY | 2024-12-31 15:12 | XMS_ITS ---
Author Organization [facility] Address [address] [place] [address] Care Team Providers Care Outside Installer Apprentice Name Role Phone Chuck VEGA, Lloyd Primary Care Provider Talha Sanabria Unavailable [phone] Medications Medication SIG (Take, Route, Fr equency, Duration) Notes Start Date End Date Status Montelukast Sodium A ctive amLODIPine Besylate Active Anoro Ellipta Active Ciclopirox 0.77 % 1 application Lead Installer ally Twice a day for 365 days Active Vitamin D3 Active Lisinopril Active Finasteride Active Omeprazole Active Gabapentin Active oxyCODONE HCl Active Encounters Encounter Location Date Provider Diagnosis [address] [address] 09/21/2024 Talha Soto Plan Of Treatment No Information Progress Notes * Daryn DUNCANDOB: [birth year] (69 yo M)Acc No.[id number]:09/21/2024 Progress Note Patient:?Daryn DUNCAN Provider:?Talha Soto DPM :1955???Age:69 Y???Sex:Male Dylan e:09/21/2024 [address] [id number] Pcp:Lloyd Woods MD Subjective: * Chief Complaints: [...] Soto DPM Date:?2023 Generated for Tiara [employer]/Stormy/Tiffanie on:?12/31/2024 03:12 PM EST
== END 2024-12-31 16:03 | disposition home or self-care (01) ==
PROVIDERS: PCP Internal Medicine; Visit Provider Internal Medicine
DX: M96.1 Postlaminectomy syndrome, not elsewhere classified (principal)

== ENCOUNTER → 2024-12-31 15:02 | Outpatient (BNVA) | payer MEDICARE, MEDICAID, SELFPAY | PROVIDERS: PCP Internal Medicine; Visit Provider Internal Medicine | DX: M96.1 Postlaminectomy syndrome, not elsewhere classified (principal) | CPT/HCPCS: 99212 ==

== ENCOUNTER 2025-01-07 09:41 | Outpatient (AMB) | payer MEDICARE, MEDICAID, SELFPAY ==
--- NOTE | 2025-01-07 09:43 | A.OFFPC_ITS ---
Vital Signs 01/07/25 09:44 Height 5 ft 11 in Weight 183 lb BMI 25.5 BP 130/74 Blood Pressure Location Rt brachial Position Sitting Respiration 18 Pulse 68 Pulse Source Pulse Oximeter Pulse Oximetry (%) 96 Oxygen Delivery Method Room Air Intake Visit Reasons: med visit Allergies No Known Allergies Allergy (Verified 01/07/25 09:44) Medication List - Last Reconciled 01/07/25 by Lloyd Woods MD albuterol sulfate 90 mcg/actuation 2 puffs inhalation Q4-6H PRN amlodipine 10 mg PO DAILY 90 days Anoro Ellipta 62.5-25 mcg/actuation (umeclidinium-vilanterol) 1 inh inhalation DAILY NS cholecalciferol (vitamin D3) 25 mcg PO DAILY 90 days cyclobenzaprine 5 mg PO BEDTIME PRN 30 days fentanyl 25 mcg/hr 1 patch transdermal Q72H 30 days fluticasone furoate 27.5 mcg/actuation (Flonase Sensimist) 1 spray intranasal DAILY 30 days gabapentin 300 mg PO BID PRN ipratropium-albuterol 0.5 mg-3 mg(2.5 mg base)/3 mL 3 mL inhalation Q6-8H PRN 30 days leuprolide acetate (6 month) (Eligard) 45 mg subcut [id number] lisinopril 40 mg PO DAILY 90 days montelukast 10 mg PO DAILY 90 days omeprazole 20 mg PO DAILY oxycodone 10 mg PO TID 3 days sucralfate (Carafate) 10 mL PO Q6H 10 days Tobacco use date assessed: 01/07/25 Fall risk assessment: No Falls in past year Last assessed Fall Risk: 01/07/25 Dental Screening Dental Screen Date: 01/07/25 Did you have a dental visit in the last 12 months?: Yes Did you have a dental problem in the last 6 months where you did not have access to dental care?: No Was dental information given to patient?: Patient has dentist HPI med visit HPI Details History - The patient is a 69-year-old male pres enting with chronic pain management. - Current medications include fentanyl p atches 25 mg, which the patient plans to discontinue, with a transition to oxycodone 10 mg. T.i.d. as he was taking before - Reports daily headaches that may be li nked to fentanyl usage, impacting daily activities such as drinking coffee. - Previously evaluated for glaucoma with anticipated surgical intervention due to visual changes and recent examination at [facility] with noted vision disturbances. Problem List - Glaucoma - Headache - Chronic Pain Management - Vision Disturbance Patient Instructions - Discontinue the use of fentanyl patche s and start oxycodone 10 mg once the patch is removed. - Wait until the effects of fentanyl hav e subsided before starting oxycodone, approximately 48-72 hours. - Monitor for pain and take medication a s needed after discontinuing the patches. - Avoid caffeine during headache occurre nces. - Review the eye doctor's recommendation s, particularly regarding potential eye surgery for glaucoma. 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 oriented x3 motor sensory intact Skin: Normal turgor PFSH Medical History Arthritis Back pain Hx of radiation therapy HTN (hypertension) Colitis Colon cancer screening Nocturia Heartburn Muscle spasms of neck Pain management Opioid dependence Hypertension, essential GERD (gastroesophageal reflux disease) Smokers' cough Drug induced constipation COPD (chronic obstructive pulmonary disease) Tobacco abuse Asthma Failed back syndrome Surgical History H/O colonoscopy (~06/04/24) History of colonoscopy (04/10/10) History of rotator cuff surgery History of repair of laceration History of fusion of cervical spine History of laminectomy Family History Father HTN (hypertension) Lung cancer Mother HTN (hypertension) Dementia Breast cancer Maternal Grandmother No problems noted. Maternal Grandfather No problems noted. Paternal Grandfather No problems noted. Paternal Grandmother No problems noted. Brother Throat cancer Lung cancer Brother No problems noted. Daughter No problems noted. Daughter No problems noted. Sister Ovarian cancer Sister No problems noted. Sister No problems noted. Sister No problems noted. Maternal Aunt Breast cancer Social History Household Members: Family Housing: House Are you a primary attending ambulatory care to a significant other at home: No Do you presently have visiting nurse or other home services: No Alcohol intake: current Alcohol intake frequency: holidays/special occasions only Patient Tobacco Use Status: Current everyday Tobacco user Tobacco use type: Cigarette Cigarette Packs Per Day: 1.0 Cigarettes Per Day: 20.0 e-Cigarette/Vaping Use: Never Used service: No Current occupational status: disabled Cognitive needs: No Hearing needs: No Vision needs: Yes Questionnaire PHQ-9 Over the last 2 weeks, how often have you been bothered by any of the following problems? 1. Little interest or pleasure in doing things: several days 2. Feeling down, depressed, or hopeless: several days 3. Trouble falling or staying asleep, or sleeping too much: several days 4. Feeling tired or having little energy: several days 5. Poor appetite or overeating: not at all 6. Feeling bad about yourself - or that you are a failure or have let yourself or your family down: not at all 7. Trouble concentrating on things, such as reading the newspaper or watching television: not at all 8. Moving or speaking so slowly that other people could have noticed. Or the opposite - being so fidgety or restless that you have been moving around a lot more than usual: not at all 9. Thoughts that you would be better off or of hurting yourself in some way: not at all Total score: 4 Depression Screening Interpretation: Negative Depression Screening Done: Yes 32556 - PHQ-9 Billing: Yes Source: Developed by Drs. Juan Motley, Blanca Manzo, Kelton Mooney and colleagues, with an educational homa from [employer]. Thrive Questionnaire Date Thrive assessed: 01/07/25 I am a: Patient What is your living situation today?: I have a steady place to live Within the past 12 months, did the food you bought not last and you didn't have the money to get more?: I choose not to answer this question Within the past 12 months, did you worry whether your food would run out before you got money to buy more?: Never true Do you have trouble paying for medicines?: No Do you have trouble getting transportation to medical appointments?: Yes Do you have trouble paying your heating and electricity bill?: No Do you have trouble taking care of your child, family member or friend?: No Do you have trouble with day-to-day activities such as bathing, preparing meals, shopping, managing finances, etc.?: No Are you currently unemployed and looking for a job?: No Are you interested in more education?: No Please select the resources that you would like help with: None Currently or been in a relationship where the following occur: I choose not to answer THRIVE Score: 1 AUDIT C Alcohol Use Questionnaire (AUDIT-C) 1. How often do you have a drink containing alcohol?: 2-4 times a month 2. How many drinks containing alcohol do you have on a typical day when you are drinking?: 1 or 2 3. How often do you have six or more drinks on one occasion?: Never Total Score: 2 Score Reviewed/Action Taken: Yes VIVIANA-7 AMB Questionnaire VIVIANA-7 Date VIVIANA - 7 assessed: 01/07/25 Feeling nervous, anxious, or on edge: 0 = Not at all Not being able to stop or control worryin = Not at all Worrying too much about different things: 0 = Not at all Trouble relaxin = Several days Being so restless that it is hard to sit still: 1 = Several days Becoming easily annoyed or irritable: 1 = Several days Feeling afraid as if something awful might happen: 0 = Not at all Total VIVIANA-7 score (0-4 normal; 5-9 mild; 10-14 moderate; 15-21 severe): 3 Source: Developed by Drs. Juan Motley, Blanca Manzo, Kelton Mooney and colleagues, with an educational homa from [employer]. VIVIANA-7 Assessment Billing VIVIANA-7 Assessment Tool: VIVIANA-7 Assessment 53467 Physical exam (Primary Care) Vital Signs: Last Vital Signs Pulse 68 01/07/25 09:44 Resp 18 01/07/25 09:44 BP 130/74 01/07/25 09:44 Pulse Ox 96 01/07/25 09:44 Oxygen Delivery Method Room Air 01/07/25 09:44 BMI result Body Mass Index 25.5 Tobacco/Smoking Status: Tobacco use Status Tobacco use date assessed 01/07/25 01/07/25 09:47 Patient Tobacco Use Status Current everyday Tobacco 01/07/25 09:47 Tobacco use type Cigarette 01/07/25 09:47 e-Cigarette/Vaping Use Never Used 01/07/25 09:47 PHQ-9: PHQ-9 Score PHQ-9: Total score 4 01/07/25 09:47 Depression Screening Interpretation: Negative Thrive Assessment: Date of Thrive Assessment Date Thrive assessed 01/07/25 01/07/25 09:47 Currently or been in a relationship where the following occur: I choose not to answer Coding Level of Care Code Est Pt Level 3 (72975) Diagnoses Failed back syndrome M96.1 Additional Codes VIVIANA-7 Assessment Billing - VIVIANA-7 Assessment Tool: VIVIANA-7 Assessment 03818 ([id number]) PHQ-9 - 31225 - PHQ-9 Billing: Yes ([id number]) Assessment & Plan Assessment & Plan (1) Failed back syndrome: Code(s): M96.1 - Postlaminectomy syndrome, not elsewhere classified Category: Medical Plan History - The patient is a 69-year-old male presenting with chronic pain management. - Current medications include fentanyl patches 25 mg, which the patient plans to discontinue, with a transition to oxycodone 10 mg. T.i.d. as he was taking before - Reports daily headaches that may be linked to fentanyl usage, impacting daily activities such as drinking coffee. - Previously evaluated for glaucoma with anticipated surgical intervention due to visual changes and recent examination at [facility] with noted vision disturbances. Problem List - Glaucoma - Headache - Chronic Pain Management - Vision Disturbance Patient Instructions - Discontinue the use of fentanyl patches and start oxycodone 10 mg once the patch is removed. - Wait until the effects of fentanyl have subsided before starting oxycodone, approximately 48-72 hours. - Monitor for pain and take medication as needed after discontinuing the patches. - Avoid caffeine during headache occurrences. - Review the eye doctor's recommendations, particularly regarding potential eye surgery for glaucoma. Medications: Changed From oxycodone partial refill allowed 10 mg PO TID 3 days 9 tabs 0RF pain F11.20 - Opioid dependence, uncomplicated, M96.1 - Postlaminectomy syndrome, not elsewhere classified, R52 - Pain, unspecified To oxycodone partial refill allowed 10 mg PO TID 90 tabs 0RF pain 30 days F11.20 - Opioid dependence, uncomplicated, M96.1 - Postlaminectomy syndrome, not elsewhere classified, R52 - Pain, unspecified Discontinued fentanyl 25 mcg/hr Partial Fill upon patient request. Discontinued Reason: Doctor's Order 1 patch transdermal Q72H 30 days 10 ea 0RF
[2025-01-07 09:44] VITALS: BP 130/74; PULSE 68; RESP 18; O2SAT 96; BMI 25.5
--- OUTSIDE RECORDS SUMMARY | 2025-01-07 10:27 | XMS_ITS ---
Author Organization [facility] Address [address] [place] [address] Care Team Providers Care Moshgiach Name Role Phone Chuck VEGA, Lloyd Primary Care Provider Talha Sanabria Unavailable [phone] Encounters Encounter Location Date Provider Diagnosis [address] [address] 10/12/2024 Talha Soto Plan Of Treatment No Information Progress Notes * Daryn DUNCANDOB: [birth year] (69 yo M)Acc No.[id number]:10/12/2024 Progress Note Patient:?Daryn DUNCAN Provider:?Talha Soto DPM :1955???Age:69 Y???Sex:Male Dylan e:10/12/2024 [place] Pcp:Lloyd Woods MD Subjective: * Chief Complaints: * ??? * Medical History:? Objective: * Vitals:? Assessment: Plan: * Treatment: * Images: * The named appointment provid er may or may not be the originator of this progress note, and it is not deemed complete until electronically signed by the appointment provider. Sign off status: Pending * Provider:Ari Soto DPM Date:?2023 Generated for Oscari irma/Fakarishmag/eTransmitting on:?01/07/2025 10:26 AM EST
--- OUTSIDE RECORDS SUMMARY | 2025-01-07 10:27 | XMS_ITS ---
Author Organization [facility] Address [address] [place] [address] Care Team Providers Care Keg Inspector Name Role Phone Chuck VEGA, Asma Primary Care Provider Talha Sanabria Unavailable [phone] REASON FOR VISIT SD cx 10/12 Encounters Encounter Location Date Provider Diagnosis [facility] [address] [place] [address] 10/12/2024 Talha Soto Plan Of Treatment No Information Progress Notes * DAKOTADarynDOB: [birth year] (69 yo M)Acc No.[id number]:10/12/2024 Patient:?Daryn DUNCAN :1955???Age:69 Y???Sex:Male Address:[address] [place] [address] * true * Date:? Generated for Tiara solis/Stormy/eTransmitting on:?01/07/2025 10:26 AM EST
--- OUTSIDE RECORDS SUMMARY | 2025-01-07 10:27 | XMS_ITS | Patient Health Record ---
Author Organization [facility] Address [address] [place] [address] Care Team Providers Care Environmental Control Administrator Name Role Phone Chuck VEGA, [facility] Primary Care Provider Talha Sanabria Unavailable [phone] Allergies No Known Allergies Reason For Referral No Information Medications Medication SIG (Take, Route, Fr equency, Duration) Notes Start Date End Date Status Montelukast Sodium A ctive amLODIPine Besylate Active Lisinopril Active Finasteride Active Omeprazole Active Gabapentin Active oxyCODONE HCl Active Anoro Ellipta Active Ciclopirox 0.77 % 1 application Business Manager [employer] ally Twice a day for 365 days [...] Problem Status W/U Status Risk Notes Problem [id number] Fungal infection of nail (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) Active confirmed Rx management (4) Vital Signs Height 5 ft 11 in in 06/22/2024 Weight 168 lbs 06/22/2024 BMI 23.43 kg/m2 06/22/2024 Encounters Encounter Location Date Provider Diagnosis [facility] [address] [place] [address] 06/22/2024 Talha Soto Fungal infection of nail B35.1 ; Pain in right toe(s) M79.674 and Pain in left toe(s) M79.675 [facility] [address] [place] [address] [facility] [place] [address] [place] [address] 09/21/2024 [facility] [place] [address] [place] [address] 10/12/2024 Talha Soto Assessments Encounter Date Diagnosis [...] Insured Coverage Start Date Coverage End Date [facility] SCO Claims [address] [place] [id number] [phone] [id number] Daryn Duncan Self - patient is the insured Medical (General) History Medical History History ICD Code Arthritis asthma Back,Hip,and Knee pain Cancer Hypertension Stomach ulcer Measles Chicken pox Joint implants/screws Surgical History Surgery Date(Month/Year) neck surgery Lower back surgery shoulder surgery
--- OUTSIDE RECORDS SUMMARY | 2025-01-07 10:27 | XMS_ITS ---
Author Organization [facility] Address [address] [place] [address] Care Team Providers Care Nailer Operator Name Role Phone Chuck VEGA, Lloyd Primary Care Provider Talha Sanabria Unavailable [phone] Medications Medication SIG (Take, Route, Fr equency, Duration) Notes Start Date End Date Status Montelukast Sodium A ctive amLODIPine Besylate Active Anoro Ellipta Active Ciclopirox 0.77 % 1 application Cut Off Machine Operator ally Twice a day for 365 days Active Vitamin D3 Active Lisinopril Active Finasteride Active Omeprazole Active Gabapentin Active oxyCODONE HCl Active Encounters Encounter Location Date Provider Diagnosis [address] [address] 09/21/2024 Talha Soto Plan Of Treatment No Information Progress Notes * Daryn DUNCANDOB: [birth year] (69 yo M)Acc No.[id number]:09/21/2024 Progress Note Patient:?Daryn DUNCAN Provider:?Talha Soto DPM :1955???Age:69 Y???Sex:Male Dylan e:09/21/2024 Address[address] [id number] Pcp:Lloyd Woods MD Subjective: * Chief Complaints: [...] Soto DPM Date:?2023 Generated for Tiara solis/Stormy/Tiffanie on:?01/07/2025 10:26 AM EST
== END 2025-01-07 10:59 | disposition home or self-care (01) ==
PROVIDERS: PCP Internal Medicine; Visit Provider Internal Medicine
DX: M96.1 Postlaminectomy syndrome, not elsewhere classified (principal)

== ENCOUNTER → 2025-01-07 09:41 | Outpatient (BNVA) | payer MEDICARE, MEDICAID, SELFPAY | PROVIDERS: PCP Internal Medicine; Visit Provider Internal Medicine | DX: M96.1 Postlaminectomy syndrome, not elsewhere classified (principal); Z79.899 Other long term (current) drug therapy | CPT/HCPCS: 96127; 99212 ==

== ENCOUNTER 2025-01-25 10:42 | Outpatient (REF) | payer MEDICARE, MEDICAID, SELFPAY ==
--- OUTSIDE RECORDS SUMMARY | 2025-01-25 12:41 | XMS_ITS | Patient Health Record ---
Author Organization [facility] Address [address] [place] [address] Care Team Providers Care Surgical Brace Maker Name Role Phone Chuck VEGA, [facility] Primary Care Provider Talah Sanabria Unavailable [phone] Allergies No Known Allergies Reason For Referral No Information Medications Medication SIG (Take, Route, Fr equency, Duration) Notes Start Date End Date Status Montelukast Sodium A ctive amLODIPine Besylate Active Lisinopril Active Finasteride Active Omeprazole Active Gabapentin Active oxyCODONE HCl Active Anoro Ellipta Active Ciclopirox 0.77 % 1 application Outbound Sales Consultant ally Twice a day for 365 days [...] Problem Status W/U Status Risk Notes Problem [id number] Fungal infection of nail (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) Active confirmed Rx management (4) Vital Signs Height 5 ft 11 in in 06/22/2024 Weight 168 lbs 06/22/2024 BMI 23.43 kg/m2 06/22/2024 Encounters Encounter Location Date Provider Diagnosis [facility] [address] [place] [address] 06/22/2024 Talha Soto Fungal infection of nail B35.1 ; Pain in right toe(s) M79.674 and Pain in left toe(s) M79.675 [facility] [address] [place] [address] 06/08/2024 [facility] [place] [address] [place] [address] 09/21/2024 [facility] [place] [address] [place] [address] 10/12/2024 Talha Soto Assessments Encounter Date Diagnosis [...] Insured Coverage Start Date Coverage End Date [facility] SCO Claims [address] [place] [id number] [phone] [id number] Daryn Duncan Self - patient is the insured Medical (General) History Medical History History ICD Code Arthritis asthma Back,Hip,and Knee pain Cancer Hypertension Stomach ulcer Measles Chicken pox Joint implants/screws Surgical History Surgery Date(Month/Year) neck surgery Lower back surgery shoulder surgery
--- OUTSIDE RECORDS SUMMARY | 2025-01-25 12:41 | XMS_ITS ---
Author Organization [facility] Address [address] [place] [address] Care Team Providers Care Set Rider Name Role Phone Chuck VEGA, Asma Primary Care Provider Talha Sanabria Unavailable [phone] REASON FOR VISIT SD cx 10/12 Encounters Encounter Location Date Provider Diagnosis [facility] [address] [place] [address] 10/12/2024 Talha Soto Plan Of Treatment No Information Progress Notes * DAKOTADarynDOB: [birth year] (69 yo M)Acc No.[id number]:10/12/2024 Patient:?Daryn DUNCAN :1955???Age:69 Y???Sex:Male Address:[address] [place] [address] * true * Date:? Generated for Oscari irma/Stormy/eTransmitting on:?01/25/2025 12:41 PM EDT
--- OUTSIDE RECORDS SUMMARY | 2025-01-25 12:42 | XMS_ITS ---
Author Organization [facility] Address [address] [place] [address] Care Team Providers Care Mix Maker Name Role Phone Chuck VEGA, Lloyd Primary Care Provider Talha Sanabria Unavailable [phone] Medications Medication SIG (Take, Route, Fr equency, Duration) Notes Start Date End Date Status Montelukast Sodium A ctive amLODIPine Besylate Active Anoro Ellipta Active Ciclopirox 0.77 % 1 application Supervisor [place] ally Twice a day for 365 days Active Vitamin D3 Active Lisinopril Active Finasteride Active Omeprazole Active Gabapentin Active oxyCODONE HCl Active Encounters Encounter Location Date Provider Diagnosis [address] [address] 09/21/2024 Talha Soto Plan Of Treatment No Information Progress Notes * Daryn DUNCANDOB: [birth year] (69 yo M)Acc No.[id number]:09/21/2024 Progress Note Patient:?Daryn DUNCAN Provider:?Talha Soto DPM :1955???Age:69 Y???Sex:Male Dylan e:09/21/2024 [address] [id number] Pcp:Lloyd Woods MD Subjective: * Chief Complaints: [...] Soto DPM Date:?2023 Generated for Tiara solis/Stormy/Tiffanie on:?01/25/2025 12:41 PM EDT
--- OUTSIDE RECORDS SUMMARY | 2025-01-25 12:42 | XMS_ITS ---
Author Organization [facility] Address [address] [place] [address] Care Team Providers Care Director Geophysical Laboratory Name Role Phone Chuck VEGA, Lloyd Primary Care Provider Talha Sanabria Unavailable [phone] Encounters Encounter Location Date Provider Diagnosis [address] [address] 10/12/2024 Talha Soto Plan Of Treatment No Information Progress Notes * Daryn DUNCANDOB: [birth year] (69 yo M)Acc No.[id number]:10/12/2024 Progress Note Patient:?Daryn DUNCAN Provider:?Talha Soto DPM :1955???Age:69 Y???Sex:Male Dylan e:10/12/2024 Address:[facility] [address] Pcp:Lloyd Woods MD Subjective: * Chief Complaints: * ??? * Medical History:? Objective: * Vitals:? Assessment: Plan: * Treatment: * Images: * The named appointment provid er may or may not be the originator of this progress note, and it is not deemed complete until electronically signed by the appointment provider. Sign off status: Pending * Provider:Ari Soto DPM Date:?2023 Generated for Printi ng/Faxing/eTransmitting on:?01/25/2025 12:41 PM EDT
[2025-01-25 13:02] LABS: MANUAL DIFF FLAG NO
[2025-01-25 13:22] LABS: Basophils Absolute Auto 0.1 X10*3/uL (0.0-0.2); Basophils Percent Auto 0.8 % (0-2); Eosinophils Absolute Auto 0.2 X10*3/uL (0.0-0.4); Eosinophils Percent Auto 3.6 % (0-4); Hematocrit 38.4 % (42.0-52.0); Imm Gran Abs Auto 0.02 X10*3/uL (0.00-0.03); Imm Gran Pct Auto 0.3 % (0.0-0.4); Lymphocytes Absolute Auto 1.4 X10*3/uL (1.2-4.9); Lymphocytes Percent Auto 22.4 % (20-40); Mean Corpuscular HGB Conc 33.9 g/dl (31.0-36.0); Mean Corpuscular Hemoglobin 32.3 pg (27.0-33.0); Mean Corpuscular Volume 95.3 fL (80.0-98.0); Mean Platelet Volume 9.3 fL (9.4-12.4); Monocytes Absolute Auto 0.4 X10*3/uL (0.1-1.2); Monocytes Percent Auto 5.9 % (2-11); Neutrophils Absolute Auto 4.1 x10*3/uL (2.0-8.3); Platelet Count 304 X10*3/uL (160-400); Red Blood Count 4.03 X10*6/uL (4.60-5.80); Red Cell Distribution Width 12.3 % (11.0-16.0); White Blood Count 6.1 X10*3/uL (4.8-10.8)
[2025-01-25 13:36] LABS: Alanine Aminotransferase 20 U/L (0-40); Albumin Level 3.9 g/dL (3.5-5.0); Alkaline Phosphatase 85 U/L (39-117); Anion Gap 12 (12-20); Aspartate Amino Transferase 22 U/L (5-37); Bilirubin Total 0.3 mg/dL (0.0-1.0); Blood Urea Nitrogen 19 mg/dL (9-16); Calcium 9.4 mg/dL (8.4-10.2); Carbon Dioxide 25 mmol/L (22-29); Chloride 105 mmol/L (96-108); Estimated Glomerular Filt Rate > 60; Glucose Random 105 mg/dL (60-115); Potassium 4.8 mmol/L (3.3-5.1); Sodium 137 mmol/L (135-145); Total Protein 7.2 g/dL (6.5-8.0)
[2025-01-25 13:52] LABS: Prostate Specific Antigen < 0.10 ng/mL (<0.05-4.0)
[2025-01-31 12:18] LABS: Testosterone, Total 43 ng/dL (250-1100)
[2025-02-01 10:42] LABS: Noroxycodone, Ur 2004; Oxycodone, Ur 742; Oxymorphone, Ur 266
[2025-02-01 10:43] LABS: Codeine, Ur NEGATIVE; Hydrocodone, Ur NEGATIVE; Hydromorphone, Ur NEGATIVE; Morphine, Ur NEGATIVE; Norhydrocodone, Ur NEGATIVE
== END 2025-01-25 10:43 | disposition home or self-care (01) ==
LOC: HO.HMGCLDS 10:42
PROVIDERS: PCP Internal Medicine; Referring Provider Urology; Visit Provider Internal Medicine
DX: Z12.5 Encounter for screening for malignant neoplasm of prostate (principal); C61 Malignant neoplasm of prostate; R73.01 Impaired fasting glucose; F17.210 Nicotine dependence, cigarettes, uncomplicated; Z91.09 Other allergy status, other than to drugs and biological substances; J43.1 Panlobular emphysema; R52 Pain, unspecified; F11.20 Opioid dependence, uncomplicated; I10 Essential (primary) hypertension; K21.9 Gastro-esophageal reflux disease without esophagitis; J41.0 Simple chronic bronchitis; M96.1 Postlaminectomy syndrome, not elsewhere classified
CPT/HCPCS: 36415; 80053; 80365; 84153; 84403; 85025; G0480

== ENCOUNTER 2025-02-04 09:35 | Outpatient (AMB) | payer MEDICARE, MEDICAID, SELFPAY ==
[2025-02-04 09:38] VITALS: BP 130/78; PULSE 72; O2SAT 98; BMI 24.8
--- NOTE | 2025-02-04 09:38 | MHC.PC.OV ---
Vital Signs 02/04/25 09:38 Height 5 ft 11 in Weight 178 lb BMI 24.8 BP 130/78 Blood Pressure Location Lt brachial Position Sitting Pulse 72 Pulse Source Pulse Oximeter Pulse Oximetry (%) 98 Oxygen Delivery Method Room Air Intake Visit Reasons: med visit Electronic Bench Technician Required: No Allergies No Known Allergies Allergy (Verified 02/04/25 09:38) Medication List - Last Reconciled 02/04/25 by Lloyd Woods MD albuterol sulfate 90 mcg/actuation 2 puffs inhalation Q4-6H PRN amlodipine 10 mg PO DAILY 90 days Anoro Ellipta 62.5-25 mcg/actuation (umeclidinium-vilanterol) 1 inh inhalation DAILY NS cholecalciferol (vitamin D3) 25 mcg PO DAILY 90 days cyclobenzaprine 5 mg PO BEDTIME PRN 30 days fluticasone furoate 27.5 mcg/actuation (Flonase Sensimist) 1 spray intranasal DAILY 30 days gabapentin 300 mg PO BID PRN ipratropium-albuterol 0.5 mg-3 mg(2.5 mg base)/3 mL 3 mL inhalation Q6-8H PRN 30 days leuprolide acetate (6 month) (Eligard) 45 mg subcut [id number] lisinopril 40 mg PO DAILY 90 days montelukast 10 mg PO DAILY 90 days omeprazole 20 mg PO DAILY oxycodone 10 mg PO TID 30 days sucralfate (Carafate) 10 mL PO Q6H 10 days Tobacco use date assessed: 02/04/25 Fall risk assessment: No Falls in past year Last assessed Fall Risk: 02/04/25 Dental Screening Dental Screen Date: 01/07/25 [facility] med visit HPI Details History - The patient is a 69-year-old male with a history of COPD, smoking, environmental allergies, bilateral shoulder pain, failed back syndrome, impaired fasting sugar, vitamin-D deficiency, noncompliant with medical advice, 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 A week ago at [facility] secondary to severe left shoulder pain - Reports severe shoulder pain from last weekend that inhibited arm movement, with a low blood pressure episode of 80/50 mmHg at the time. - Hospital evaluation included X-rays and CT scan showing no acute changes or screw displacement. - Previous strategies for shoulder management included cortisone injections, yet patient still experiences restricted movement. - Other health concerns include anemia with recommendations to increase iron intake due to hemorrhoids causing blood loss. - Testosterone level checked and noted to be low to align with current medication. Through Urology patient has prostatic cancer in remission - Preparing for a urology follow-up appointment scheduled for the to discuss hormone levels. Patient need refill on his pain medications Patient Instructions - Schedule a follow-up appointment with the orthopedic surgeon regarding shoulder pain management. - Consider starting an iron supplement if not already doing so; note that it may cause constipation. - Monitor for improvement in shoulder mobility and pain; seek medical attention if symptoms worsen. - Avoid activities that may strain the shoulder further, such as moving heavy objects and painting. - Continue with the current management plan and follow up with urology as scheduled. Review of Systems - General: No fever no chills - Neurological: No headaches no dizziness - Ear nose throat: No sore throat no hearing difficulty no ear pain - Cardiovascular: No syncope, no chest pain, no palpitations - Gastrointestinal: No nausea vomiting or diarrhea - Endocrine: No polyuria polydipsia no heat intolerance - Genitourinary: No dysuria , no blood in urine Physical Exam General: No acute distress HEENT: No acute findings Neck: Supple Respiratory system: Able to talk in full sentences, slight wheezing on the right side Cardiovascular: S1-S2 regular in rate and rhythm Gastrointestinal: No pain, slightly anemic Extremities: No new findings limited range of motion left more than right shoulder 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 awake oriented x3 motor sensory intact Skin: Normal turgor PFSH Medical History Arthritis Back pain Hx of radiation therapy HTN (hypertension) Colitis Colon cancer screening Nocturia Heartburn Muscle spasms of neck Pain management Opioid dependence Hypertension, essential GERD (gastroesophageal reflux disease) Smokers' cough Drug induced constipation COPD (chronic obstructive pulmonary disease) Tobacco abuse Asthma Failed back syndrome Surgical History H/O colonoscopy (~06/04/24) History of colonoscopy (04/10/10) History of rotator cuff surgery History of repair of laceration History of fusion of cervical spine History of laminectomy Family History Father HTN (hypertension) Lung cancer Mother HTN (hypertension) Dementia Breast cancer Maternal Grandmother No problems noted. Maternal Grandfather No problems noted. Paternal Grandfather No problems noted. Paternal Grandmother No problems noted. Brother Throat cancer Lung cancer Brother No problems noted. Daughter No problems noted. Daughter No problems noted. Sister Ovarian cancer Sister No problems noted. Sister No problems noted. Sister No problems noted. Maternal Aunt Breast cancer Social History Household Members: Family Housing: House Are you a primary health care marketing specialist to a significant other at home: No Do you presently have visiting nurse or other home services: No Alcohol intake: current Alcohol intake frequency: holidays/special occasions only Patient Tobacco Use Status: Current everyday Tobacco user Tobacco use type: Cigarette Cigarette Packs Per Day: 1.0 Cigarettes Per Day: 20.0 e-Cigarette/Vaping Use: Never Used service: No Current occupational status: disabled Cognitive needs: No Hearing needs: No Vision needs: Yes Questionnaire Thrive Questionnaire Date Thrive assessed: 01/07/25 I am a: Patient What is your living situation today?: I have a steady place to live Within the past 12 months, did the food you bought not last and you didn't have the money to get more?: I choose not to answer this question Within the past 12 months, did you worry whether your food would run out before you got money to buy more?: Never true Do you have trouble paying for medicines?: No Do you have trouble getting transportation to medical appointments?: Yes Do you have trouble paying your heating and electricity bill?: No Do you have trouble taking care of your child, family member or friend?: No Do you have trouble with day-to-day activities such as bathing, preparing meals, shopping, managing finances, etc.?: No Are you currently unemployed and looking for a job?: No Are you interested in more education?: No Please select the resources that you would like help with: None Currently or been in a relationship where the following occur: I choose not to answer THRIVE Score: 1 VIVIANA-7 AMB Questionnaire VIVIANA-7 Date VIVIANA - 7 assessed: 01/07/25 Source: Developed by Drs. Juan Motley, Blanca Manzo, Kelton Mooney and colleagues, with an educational homa from [employer]. Physical exam (Primary Care) Vital Signs: Last Vital Signs Pulse 72 02/04/25 09:38 BP 130/78 02/04/25 09:38 Pulse Ox 98 02/04/25 09:38 Oxygen Delivery Method Room Air 02/04/25 09:38 BMI result Body Mass Index 24.8 Tobacco/Smoking Status: Tobacco use Status Tobacco use date assessed 02/04/25 02/04/25 09:39 Patient Tobacco Use Status Current everyday Tobacco 02/04/25 09:39 Tobacco use type Cigarette 02/04/25 09:39 e-Cigarette/Vaping Use Never Used 02/04/25 09:39 Thrive Assessment: Date of Thrive Assessment Date Thrive assessed 01/07/25 02/04/25 09:39 Currently or been in a relationship where the following occur: I choose not to answer Coding Level of Care Code Est Pt Level 4 (14388) Complex EM visit Add On G2211 Diagnoses Failed back syndrome M96.1 Tobacco abuse Z72.0 Uncomplicated opioid dependence F11.20 Substance use status: uncomplicated Pain management R52 Muscle spasms of neck M62.838 Mixed simple and mucopurulent chronic bronchitis J41.8 COPD type: chronic bronchitis Chronic bronchitis type: mixed simple and mucopurulent Smokers' cough J41.0 Gastroesophageal reflux disease without esophagitis K21.9 Esophagitis presence: without esophagitis Hypertension, essential I10 Assessment & Plan Assessment & Plan (1) Failed back syndrome: Code(s): M96.1 - Postlaminectomy syndrome, not elsewhere classified Category: Medical (2) Tobacco abuse: Code(s): Z72.0 - Tobacco use Category: Medical (3) Opioid dependence: Comment: CONTROLLED NATURE OF MEDICATION WAS DISCUSSED, IT IS IMPORTANT TO NOTIFY ME OF CHANGE OF PHARMACY, OR IF TRAVELING. DO NOT SHARE THE MEDICATION WITH ANYBODY, KEEP IT SAFE AWAY FROM THE HANDS OF SMALL CHILDREN, AND ONLY TAKE IT PRESCRIBED. THIS MEDICATION HAVE A TENDENCY TO BE ABUSED, HABIT-FORMING, AND IT CAN CAUSE SEVERE CONSTIPATION ALONG WITH OTHER ALLERGIC REACTIONS. LONG-TERM USE OF NARCOTIC MEDICATIONS HAVE SHOWN TO INCREASE SENSITIVITY TO PAIN. Code(s): F11.20 - Opioid dependence, uncomplicated Category: Medical Qualifiers: Substance use status: uncomplicated Qualified Code(s): F11.20 - Opioid dependence, uncomplicated (4) Pain management: Code(s): R52 - Pain, unspecified Category: Medical (5) Muscle spasms of neck: Code(s): M62.838 - Other muscle spasm Category: Medical (6) COPD (chronic obstructive pulmonary disease): Code(s): J44.9 - Chronic obstructive pulmonary disease, unspecified Category: Medical Qualifiers: COPD type: chronic bronchitis Chronic bronchitis type: mixed simple and mucopurulent Qualified Code(s): J41.8 - Mixed simple and mucopurulent chronic bronchitis (7) Smokers' cough: Code(s): J41.0 - Simple chronic bronchitis Category: Medical (8) GERD (gastroesophageal reflux disease): Code(s): K21.9 - Gastro-esophageal reflux disease without esophagitis Category: Medical Qualifiers: Esophagitis presence: without esophagitis Qualified Code(s): K21.9 - Gastro-esophageal reflux disease without esophagitis (9) Hypertension, essential: Code(s): I10 - Essential (primary) hypertension Category: Medical Plan History - The patient is a 69-year-old male with a history of COPD, smoking, environmental allergies, bilateral shoulder pain, failed back syndrome, impaired fasting sugar, vitamin-D deficiency, noncompliant with medical advice, 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 A week ago at [facility] secondary to severe left shoulder pain - Reports severe shoulder pain from last weekend that inhibited arm movement, with a low blood pressure episode of 80/50 mmHg at the time. - Hospital evaluation included X-rays and CT scan showing no acute changes or screw displacement. - Previous strategies for shoulder management included cortisone injections, yet patient still experiences restricted movement. - Other health concerns include anemia with recommendations to increase iron intake due to hemorrhoids causing blood loss. - Testosterone level checked and noted to be low to align with current medication. Through Urology patient has prostatic cancer in remission - Preparing for a urology follow-up appointment scheduled for the to discuss hormone levels. Patient need refill on his pain medications Patient Instructions - Schedule a follow-up appointment with the orthopedic surgeon regarding shoulder pain management. - Consider starting an iron supplement if not already doing so; note that it may cause constipation. - Monitor for improvement in shoulder mobility and pain; seek medical attention if symptoms worsen. - Avoid activities that may strain the shoulder further, such as moving heavy objects and painting. - Continue with the current management plan and follow up with urology as scheduled. Medications: Changed From gabapentin 300 mg PO BID PRN To gabapentin 300 mg PO BID 60 caps 0RF Refilled oxycodone partial refill allowed 10 mg PO TID 90 tabs 0RF pain 30 days F11.20 - Opioid dependence, uncomplicated, M96.1 - Postlaminectomy syndrome, not elsewhere classified, R52 - Pain, unspecified cyclobenzaprine 5 mg PO BEDTIME PRN 30 tabs 0RF muscle spasm 30 days M62.838 - Other muscle spasm, R52 - Pain, unspecified
== END 2025-02-04 10:03 | disposition home or self-care (01) ==
LOC: HO.HMCC 09:36
PROVIDERS: PCP Internal Medicine; Visit Provider Internal Medicine
DX: J41.8 Mixed simple and mucopurulent chronic bronchitis (principal); F11.20 Opioid dependence, uncomplicated; J41.0 Simple chronic bronchitis; R52 Pain, unspecified; M96.1 Postlaminectomy syndrome, not elsewhere classified; Z72.0 Tobacco use; M62.838 Other muscle spasm; K21.9 Gastro-esophageal reflux disease without esophagitis; I10 Essential (primary) hypertension

== ENCOUNTER → 2025-02-04 09:35 | Outpatient (BNVA) | payer MEDICARE, MEDICAID, SELFPAY | PROVIDERS: PCP Internal Medicine; Visit Provider Internal Medicine | DX: M96.1 Postlaminectomy syndrome, not elsewhere classified (principal); F11.20 Opioid dependence, uncomplicated; R52 Pain, unspecified; M62.838 Other muscle spasm; J41.8 Mixed simple and mucopurulent chronic bronchitis; J41.0 Simple chronic bronchitis; K21.9 Gastro-esophageal reflux disease without esophagitis; I10 Essential (primary) hypertension; Z72.0 Tobacco use | CPT/HCPCS: 99212 ==

== ENCOUNTER 2025-02-11 14:20 | Outpatient (AMB) | payer MEDICARE, MEDICAID, SELFPAY ==
--- NOTE | 2025-02-11 14:27 | MHC.OFFVIS ---
Intake Visit Reasons: 4m/labs Intake Note: Patient is present for a 4 month follow up/labs Urology Med: none Antibiotic Allergy:None Blood Thinner:None Top Cager Required: No Allergies No Known Allergies Allergy (Verified 02/11/25 14:28) HPI Comments Details: Daryn is a pleasant male. He is a patient of Dr. Woods. He is seen for the following urologic conditions - elevated PSA - lower urinary tract symptoms Accompanied by daughter and granddaughter Discussed results PSA remains low, T slowly recovering Discussed smoking Encourage switching to commercial vape products with cartridges versus zynn Six-month follow-up lab work 02/01 <0.1, T 43 09/02 - PSA <0.1 T 16 Hot flashes resolving Stop finasteride 03/03 <0.1 T 21 Third GnRH today 01/03 0.1, T 23 09/01 GnRH, finasteride - main concern was proctitis which was resolving PSA 05/02 0.6 GnRH 03/04/23 with finasteride - MAB during XRT (GnRH bicalutamide + finasteride) Prostate cancer - Grade Group Grade Group 4 - EXBRT with maximum androgen blockade ([facility]) completed April 2023 Adenocarcinoma of the prostate (T1c N0 M0, Wake score 3+5, Grade Group 4, PSA at Diagnosis 5.4) - NCCN high risk group Prostate cancer was diagnosed Dr Flower Diagnosis was reached by - for elevated PSA - 5.4 F 11% - 40cc Date: 12/02 12 Core biopsy Positive Biopsies: 4 Negative Biopsies: 8 - (%) Positive: Locations: Left base lateral 3+4 25%, left base medial 3+4 25%, left mid lateral 3+3 5%, left mid medial 3+5 25% TNM Classification of Malignant Tumours (TNM) - T2a Staging Imaging - 12/02 PMSA - metabolically active prostate, question of rib involvement however unlikely - 01/30 prostate MRI - left posterolateral mid, base 1.5 cm PI-RADS 4 with abutment, no clear evidence of extracapsular extension Associated conditions erectile dysfunction Mild EXBRT with maximum androgen blockade with Dr. Austin at [facility] 7600 grade, 44 fractions Lower urinary tract symptoms Nocturia 2-3 Variable stream Prior medications include tamsulosin, finasteride and terazosin ALEK 1+ prominent medial sulcus Low libido Reports decline in desire Baseline chronic opiate use T 10/01 452 PSA 05/01 5.9, 10/01 5.4 11% PFSH Medical History Arthritis Back pain Hx of radiation therapy HTN (hypertension) Colitis Colon cancer screening Nocturia Heartburn Muscle spasms of neck Pain management Opioid dependence Hypertension, essential GERD (gastroesophageal reflux disease) Smokers' cough Drug induced constipation COPD (chronic obstructive pulmonary disease) Tobacco abuse Asthma Failed back syndrome Surgical History H/O colonoscopy (~06/04/24) History of colonoscopy (04/10/10) History of rotator cuff surgery History of repair of laceration History of fusion of cervical spine History of laminectomy Family History Father HTN (hypertension) Lung cancer Mother HTN (hypertension) Dementia Breast cancer Maternal Grandmother No problems noted. Maternal Grandfather No problems noted. Paternal Grandfather No problems noted. Paternal Grandmother No problems noted. Brother Throat cancer Lung cancer Brother No problems noted. Daughter No problems noted. Daughter No problems noted. Sister Ovarian cancer Sister No problems noted. Sister No problems noted. Sister No problems noted. Maternal Aunt Breast cancer Social History Household Members: Family Housing: House Are you a primary healthcare administration internship to a significant other at home: No Do you presently have visiting nurse or other home services: No Alcohol intake: current Alcohol intake frequency: holidays/special occasions only Patient Tobacco Use Status: Current everyday Tobacco user Tobacco use type: Cigarette Cigarette Packs Per Day: 1.0 Cigarettes Per Day: 20.0 e-Cigarette/Vaping Use: Never Used service: No Current occupational status: disabled Cognitive needs: No Hearing needs: No Vision needs: Yes Review of Systems Const Denies chills and Denies fever(s) Card Reports no additional complaints and Denies syncope Resp Denies cough GI Denies abdominal pain and Denies heartburn Reports as per HPI and Denies change in libido Neuro Denies syncope Psych Denies change in libido Endo Denies change in libido Physical Exam Const General: cooperative, healthy appearing, comfortable and no acute distress Orientation/consciousness: patient oriented x3 HEENT Face and sinus: Yes normal facial exam Mouth: moist mucous membranes Neck Neck: Yes normal visual inspection, Yes full ROM and Yes trachea midline Chest Chest palpation & inspection: normal inspection of the chest Resp Effort & Inspection: normal respiratory effort, able to speak in complete sentences and no respiratory distress GI Inspection: Yes normal to inspection Back/Spine/Pelvis Cervical Spine: normal cervical lordosis Thoracic/Lumbar Spine: thoracic and lumbar spine normal to inspection Skin General skin exam: no rashes or lesions noted Neuro General: patient oriented x3, gait normal, tone normal and moves all extremities Extrem General: Yes normal to inspection and Yes capillary refill normal Assessment & Plan Assessment & Plan (1) Prostate cancer: Comment: 12/02 PSA 5.4, high risk Nelli 3 + 5, 4 cores Code(s): C61 - Malignant neoplasm of prostate Category: Medical (2) Nocturia more than twice per night: Code(s): R35.1 - Nocturia Category: Medical (3) Low libido: Code(s): R68.82 - Decreased libido Category: Medical Plan Six-month follow-up lab work Orders: Orders Testosterone, Total 6 Months C61 - Malignant neoplasm of prostate Prostate Specific Antigen 6 Months C61 - Malignant neoplasm of prostate Patient Instructions: This note is constructed using voice recognition software. While every effort has been made to ensure accuracy postdoctoral scholar errors may have been included. Imaging studies, laboratory and physical exam results were discussed and reviewed in detail. No major barriers to patient understanding were identified. An opportunity to ask questions regarding the treatment plan was provided. All questions were answered. The patient expressed understanding and agreement with the above treatment plan. The patient is aware they should contact our office by phone for worsening of their current condition or the appearance of new urologic symptoms. Compliance is encouraged with any medications and followup testing that is ordered. It is a privilege to participate in the urologic care of your patient. If you have any questions or concerns regarding treatment for the above conditions, or other urologic issues, please do not hesitate to contact me. The office telephone contact is [phone]. Sincerely, Dr Samy Flower MD, [facility] - Urology Compassionate Specialist Care for the Genitourinary System Coding Level of Care Code Est Pt Level 3 (90402) Complex EM visit Add On G2211 Diagnoses Prostate cancer C61 Nocturia more than twice per night R35.1 Low libido R68.82
--- OUTSIDE RECORDS SUMMARY | 2025-02-11 15:58 | XMS_ITS | Clinical Summary ---
Author Organization [facility] Address [address] [place] [address] Phone Care Team Providers Care Linoleum Tile Layer Name Role Phone Lloyd Woods MD Primary Care Provider [phone] Allergies No known active allergies Medications ibuprofen (ADVIL,MOTRIN) 600 mg tablet Take 1 tablet (600 mg total) by mouth if needed for mild pain for up to 10 days. 30 tablet 01/27/2025 5 Active Problems No known active problems Encounters Date Type Department Care Team Description 01/26/2025 7:59 PM EDT - 01/27/2025 1:19 AM EDT Emergency [facility] Emergency [address] [place] [address] Acute pain of left shoulder (Primary Dx); Chronic neck pain Discharge Disposition: Home or Self Care from Last 3 Months Medical History Medical History Date Comments COPD (chronic obstructive pu lmonary disease) ([facility]) DX:COPD (chronic obstructive pulmonary disease) ([facility]) GERD (gastroesophageal reflux disease) DX:GERD (gastroesophageal reflux disease) Heart burn DX:Heart burn Drug induced constipation DX:Jair g induced constipation Failed back syndrome DX:Failed b ack syndrome Muscle spasm DX:Muscle spasm Essential (primary) hypertension DX:Essential (primary) hypertension Opioid dependence DX:Opioid depe ndence ([facility]) Prostate cancer ([facility]) Social History Tobacco Use Types Packs/Day Years Used Date Smoking Tobacco: Every Day Smokeless Tobacco: Never Alcohol Use Standard Drinks/Week Comments Yes 0 (1 standard drink = 0.6 oz pur e alcohol) Sex and Gender Information Value Date Recorded Sex Assigned at Male 01/26/2025 8:38 PM EDT Legal Sex Male 11:30 PM EST Gender Identity Male 01/26/2025 8:38 PM EDT Sexual Orientation Straight 01/26/2025 8: 38 PM EDT Obstetrics History Last Filed Vital Signs Vital Sign Reading Time Taken Comments Blood Pressure 146/70 01/27/2025 1:00 AM EDT Pulse 70 01/27/2025 1:00 AM EDT Temperature 36.7 ??C (98.1 ??F) 01/27/2025 1:00 AM ED T Respiratory Rate 18 01/27/2025 1:00 AM EDT Oxygen Saturation 97% 01/27/2025 12:30 AM EDT Inhaled Oxygen Concentration - - Weight 81.6 kg (180 lb) 01/26/2025 7:57 PM EDT Height 182.9 cm (6') 01/26/2025 7:57 PM EDT Body Mass Index 24.41 01/26/2025 7:57 PM EDT Plan of Treatment Health Maintenance Due Date Last Done Comments DTaP,Tdap,and Td Vaccines (1 - Tdap) 1976 Pneumococcal Vaccine: 50+ Years (1 of 2 - PCV) 1976 Zoster Vaccines (1 of 2) 2007 Abdominal Aortic Aneurysm (AAA) Screen 10/13/2022 Cholesterol Screening (Lipid Panel) 10/13/2022 Colorectal Cancer Screening: Colonoscopy 10/13/2022 Depression Screening 10/13/2022 Falls Risk Assessment 10/13/2022 Hepatitis C Screening 10/13/2022 Medicare Annual Wellness Visit 10/13/2022 Social Influencers of Health Screening 10/13/2022 COVID-19 Vaccine ( season) 2024 12/01/2021, 03/30/2021, 03/09/2021 RSV Immunization Adult Patients (1 - 1-dose 75+ series) 2032 Hepatitis B Vaccines Completed 08/07/2017, 03/13/2017, 02/11/2017 Influenza Vaccine Completed 11/09/2024, , 10/01/2019, Additional history exists HIB Vaccines Aged Out No longer eligi ble based on patient's age to complete this topic HPV Vaccines Aged Out No longer eligi ble based on patient's age to complete this topic Hepatitis A Vaccines Aged Out No long er eligible based on patient's age to complete this topic IPV Vaccines Aged Out No longer eligi ble based on patient's age to complete this topic MMR Vaccines Aged Out No longer eligi ble based on patient's age to complete this topic Meningococcal ACWY Vaccine Aged Out N o longer eligible based on patient's age to complete this topic Meningococcal B Vacine Aged Out No lo nger eligible based on patient's age to complete this topic RSV Immunization Patients Under 20 months Aged Out No longer eligible based on patient's age to complete this topic Varicella Vaccines Aged Out No longer eligible based on patient's age to complete this topic Procedures Procedure Name Priority Date/Time Associated Diagnosis Comments ECG ANNOTATED 01/28/2025 XR SHOULDER 2+ VIEWS LEFT STAT 01/26/2025 11:39 PM EDT DRUG ABUSE SCREEN 8A PANEL, URINE STAT 01/26/2025 10:40 PM EDT FERNANDO URINE CULTURE TUBE STAT 01/26/2025 10:40 PM EDT URINALYSIS WITH REFLEX MICROSCOPIC AND CULTURE STAT 01/26/2025 10:40 PM EDT URINALYSIS WITH REFLEX MICROSCOPIC AND CULTURE STAT 01/26/2025 10:40 PM EDT XR CHEST 2 VIEWS STAT 01/26/2025 9:[address] CERVICAL SPINE WO CONTRAST STAT 01/26/2025 8:30 PM EDT RESPIRATORY VIRUS PANEL MOLECULAR STUDY STAT 01/26/2025 8:30 PM EDT ECG 12-LEAD STAT 01/26/2025 8:17 PM EDT CBC WITH AUTO DIFFERENTIAL STAT 01/26/2025 8:15 PM EDT BASIC METABOLIC PANEL STAT 01/26/2025 8:15 PM EDT CBC AND DIFFERENTIAL STAT 01/26/2025 8:15 PM EDT TROPONIN I HIGH SENSITIVITY STAT 01/26/2025 8:15 PM EDT from Last 3 Months Results * ECG-Annotated (01/28/2025) us Provider Onbase MD ECG ORDERABLES Final Result * XR Shoulder 2+ Views Left (01/26/2025 11:39 PM EDT) Anatomical Region Laterality Modality Upper Extremities, Shoulder Left Radi ographic Imaging 01/27/2025 7:58 AM EDT Impressions 01/27/2025 8:00 AM EDT No fracture, dislocation, or other acute findings. There is moderate osteoarthritis of the glenohumeral joint and mild to moderate osteoarthritis of the acromioclavicular joint. Chronic rotator cuff tear is noted. There is evidence of calcific bursitis of the acromioclavicular joint. Code 81953 -------- FINAL REPORT -------- Dictated By: Gordon Diaz Dictated Date: 01/27/2025 07:58 ET Assigned Physician: Gordon Diaz Reviewed and Electronically Signed By: Grodon Diaz Signed Date: 01/27/2025 08:00 ET Workstation ID: [id number] Transcribed By: Self Edit Transcribed Date: 01/27/2025 07:58 ET Narrative 01/27/2025 8:00 AM EDT HISTORY: The patient is a 69-year-old male with left shoulder pain. No history of trauma is provided. FINDINGS: AP, left posterior oblique, and transscapular views of the left shoulder are obtained. The study demonstrates no fracture, dislocation, or osteolytic or osteoblastic lesion. There is narrowing of the glenohumeral joint space with marginal osteophytes consistent with moderate osteoarthritis. The superior margin of the humeral head is in close proximity to the acromion process diagnostic of a chronic rotator cuff tear. The acromioclavicular joint demonstrates osteophytes consistent with mild to moderate osteoarthritis. Soft tissue calcification at the superior margin of the AC joint is indicative of calcific bursitis. Procedure Note Gordon Diaz MD - 01/27/2025 HISTORY: The patient is a 69-year-old male with left shoulder pain. Nohistory of trauma is provided. FINDINGS: AP, left posterior oblique, and transscapular views of the leftshoulder are obtained. The study demonstrates no fracture, dislocation, orosteolytic or osteoblastic lesion. There is narrowing of the glenohumeraljoint space with marginal osteophytes consistent with moderateosteoarthritis. The superior margin of the humeral head is in closeproximity to the acromion process diagnostic of a chronic rotator cufftear. The acromioclavicular joint demonstrates osteophytes consistent withmild to moderate osteoarthritis. Soft tissue calcification at the superiormargin of the AC joint is indicative of calcific bursitis. IMPRESSION: No fracture, dislocation, or other acute findings. There is moderateosteoarthritis of the glenohumeral joint and mild to moderateosteoarthritis of the acromioclavicular joint. Chronic rotator cuff tearis noted. There is evidence of calcific bursitis of the acromioclavicularjoint. Code 06521 -------- FINAL REPORT -------- Dictated By: Gordon Diaz Dictated Date: 01/27/2025 07:58 ET Assigned Physician: Gordon Diaz Reviewed and Electronically Signed By: Gordon Diaz Signed Date: 01/27/2025 08:00 ET Workstation ID: [id number] Transcribed By: Self Edit Transcribed Date: 01/27/2025 07:58 ET us Leeroy KNOX IMG XR PROCEDURES Final Resul t * (ABNORMAL) Urinalysis with reflex microscopic and culture (01/26/2025 10:40 PM EDT) Specific [place] Urine 1.021 1.003 - 1.030 LAB URINALYSIS - AUTOMATED METHOD 01/27/2025 12:08 AM EDT [facility] pH, Urine 5.5 5.0 - 8.0 pH LAB URINALYSIS - AUTOMATED METHOD 01/27/2025 12:08 AM [facility] Leukocytes, Urine Negative Negative LAB URINALYSIS - AUTOMATED METHOD 01/27/2025 12:08 AM [facility] Nitrite, Urine Negative Negative LAB URINALYSIS - AUTOMATED METHOD 01/27/2025 12:08 AM [facility] Protein, Urine Negative <=Trace mg/dL LAB URINALYSIS - AUTOMATED METHOD 01/27/2025 12:08 AM [facility] Glucose, Urine 250(A) Negative mg/dL LAB URINALYSIS - AUTOMATED METHOD 01/27/2025 12:08 AM [facility] Ketones, Urine Negative Negative mg/dL LAB URINALYSIS - AUTOMATED METHOD 01/27/2025 12:08 AM [facility] Urobilinogen, Urine 0.2 0.2 - 1.0 mg/dL LAB URINALYSIS - AUTOMATED METHOD 01/27/2025 12:08 AM [facility] Bilirubin, Urine Negative Negative LAB URINALYSIS - AUTOMATED METHOD 01/27/2025 12:08 AM [facility] Blood, Urine Negative Negative LAB URINALYSIS - AUTOMATED METHOD 01/27/2025 12:08 AM [facility] Urine Urine specimen obtained by clean catch procedure / Unknown Non-blood Collection / Unknown 01/26/2025 10:40 PM EDT 01/26/2025 11:55 PM EDT us Leeroy KNOX LAB URINE ORDERABLES Final Re sult [facility] [address] [place] [address], * Fernando urine culture tube (01/26/2025 10:40 PM EDT) Extra Tube Hold for add-ons. 01/27/2025 1:04 AM EDT [facility] Comment:Auto resulted. Urine Urine specimen obtained by clean catch procedure / Unknown Non-blood Collection / Unknown 01/26/2025 10:40 PM EDT 01/26/2025 11:55 PM EDT us Leeroy KNOX LAB URINE ORDERABLES Final Re sult [facility] [address] [place] [address], * (ABNORMAL) Drug abuse screen 8a panel, urine (01/26/2025 10:40 PM EDT) Pathologist [facility] Amphetamine Screen, Ur Negative Negative LAB CHEMISTRY METHOD 5 2:48 AM EDT [facility] Comment:Certain OTC medicati ons containing ephedrine, phenylephrine, pseudoephedrine and phenylpropanolamine can cause false positive results. Barbiturate Screen, Ur Negative Negative LAB CHEMISTRY METHOD 5 2:48 AM EDT [facility] Benzodiazepine Screen, Ur Negative Negative LAB CHEMISTRY METHOD 5 2:48 AM [facility] Cocaine Screen, Ur Negative Negative LAB CHEMISTRY METHOD 5 2:48 AM [facility] Opiate Screen, Ur Positive(A ) Negative LAB CHEMISTRY METHOD 5 2:48 AM [facility] Cannabinoid (THC) Screen, Ur Negative Negative LAB CHEMISTRY METHOD 5 2:48 AM T [facility] Comment:Specimens from patie nts taking pantoprazole sodium (Protonix) have been shown to produce false positive results. Oxycodone Screen, Ur Positive(A ) Negative LAB CHEMISTRY METHOD 5 2:48 AM [facility] Fentanyl, Ur Negative Negative LAB CHEMISTRY METHOD 5 2:48 AM [facility] Urine Urine specimen obtained by clean catch procedure / Unknown Non-blood Collection / Unknown 01/26/2025 10:40 PM EDT 01/26/2025 11:55 PM EDT N[facility]ative [facility] - 01/27/2025 2:48 AM EDT Assay cutoffs: Amphetamines ? 1000 ng/mL Barbiturates ?200 ng/mL Benzodiazepines ?? 200 ng/mL Cocaine ? 300 ng/mL Fentanyl ?1 ng/mL Opiates ? 300 ng/mL Oxycodone ? 100 ng/mL THC ?50 ng/mL Semi-quantitative assay for screening purposes only. Unconfirmed screening result should not be used for non-medical purposes. *ALTERNATE METHOD CONFIRMATION DONE UPON REQUEST ONLY* us Leeroy KNOX LAB URINE ORDERABLES [facility] [address] [place] [address], * XR Chest 2 Views (01/26/2025 9:15 PM EDT) Anatomical Region Laterality Modality Body Radiographic Pretty ging 01/27/2025 8:23 AM EDT Impressions 01/27/2025 8:24 AM EDT Possible trace left pleural effusion. ??Linear markings at the left base suspected to represent atelectasis. -------- FINAL REPORT -------- Dictated By: Otilio Montiel Dictated Date: 01/27/2025 08:23 ET Assigned Physician: Otilio Montiel Reviewed and Electronically Signed By: Otliio Montiel Signed Date: 01/27/2025 08:24 ET Workstation ID: [id number] Transcribed By: Self Edit Transcribed Date: 01/27/2025 08:23 ET Narrative 01/27/2025 8:24 AM EDT PROCEDURE: PA and lateral radiographs of the chest. HISTORY: Cough. COMPARISON: 08/30/2020. FINDINGS: Small amount of linear opacity at the left base. ??Possible trace left pleural effusion. ??Atherosclerotic calcification of the aorta. ??Normal heart size. ??No pulmonary edema or pneumothorax. ??ACDF hardware. ??Bones are demineralized. ??Degenerative changes of the spine. Procedure Note Otilio Montiel MD - 01/27/2025 PROCEDURE: PA and lateral radiographs of the chest. HISTORY: Cough. COMPARISON: 08/30/2020. FINDINGS: Small amount of linear opacity at the left base. Possible trace leftpleural effusion. Atherosclerotic calcification of the aorta. Normalheart size. No pulmonary edema or pneumothorax. ACDF hardware. Bonesare demineralized. Degenerative changes of the spine. IMPRESSION: Possible trace left pleural effusion. Linear markings at the left basesuspected to represent atelectasis. -------- FINAL REPORT -------- Dictated By: Otilio Montiel Dictated Date: 01/27/2025 08:23 ET Assigned Physician: Otilio Montiel Reviewed and Electronically Signed By: Otilio Montiel Signed Date: 01/27/2025 08:24 ET Workstation ID: [id number] Transcribed By: Self Edit Transcribed Date: 01/27/2025 08:23 ET Leeroy KNOX IMG XR PROCEDURES Final Resul t * CT Cervical Spine wo Contrast (01/26/2025 8:30 PM EDT) Anatomical Region Laterality Modality Spine, C-spine Computed Tomogra phy 01/26/2025 8:58 PM EDT Impressions 01/26/2025 8:58 PM EDT No acute fracture. Multilevel degenerative changes as above. This document has been electronically signed by: Brynn Awad MD on 01/26/2025 20:58:51 Narrative 01/26/2025 8:58 PM EDT INDICATION: severe neck pain CT cervical spine without contrast Comparison: None Findings: Straightening of the cervical spine is likely positional. Anterior cervical discectomy and fusion from C4-C5 through C7. Hardware is intact. Mild cervical levocurvature with apex at C6, possibly positional. No acute fractures or dislocations. Multilevel degenerative changes: C2-C3: Posterior disc herniation indenting the thecal sac and causing mild spinal canal stenosis. Uncovertebral and facet arthropathy at this level causes mild bilateral neural foraminal stenosis. C3-C4: Uncovertebral and facet arthropathy causes severe right and moderate left neural foraminal stenosis. C4-C5: Facet arthropathy causes severe right neural foraminal stenosis. C5-C6: No significant spinal canal or neural foraminal stenosis. C6-C7: Uncovertebral and facet arthropathy causes severe bilateral neural foraminal stenosis. No acute findings on limited view of the intracranial contents. 2.1 cm probable sebaceous cysts in the left lower posterior neck. Bilateral carotid atherosclerosis. Lung apices are clear. Procedure Note Brynn Awad MD - 01/26/2025 INDICATION: severe neck pain CT cervical spine without contrast Comparison: None Findings: Straightening of the cervical spine is likely positional. Anterior cervical discectomy and fusion from C4-C5 through C7. Hardwareis intact. Mild cervical levocurvature with apex at C6, possibly positional. No acute fractures or dislocations. Multilevel degenerative changes: C2-C3: Posterior disc herniation indenting the thecal sac and causingmild spinal canal stenosis. Uncovertebral and facet arthropathy at this level causes mild bilateral neural foraminal stenosis. C3-C4: Uncovertebral and facet arthropathy causes severe right and moderate left neural foraminal stenosis. C4-C5: Facet arthropathy causes severe right neural foraminal stenosis. C5-C6: No significant spinal canal or neural foraminal stenosis. C6-C7: Uncovertebral and facet arthropathy causes severe bilateralneural foraminal stenosis. No acute findings on limited view of the intracranial contents. 2.1 cm probable sebaceous cysts in the left lower posterior neck. Bilateral carotid atherosclerosis. Lung apices are clear. IMPRESSION: No acute fracture. Multilevel degenerative changes as above. This document has been electronically signed by: Brynn Awad MD on 01/26/2025 20:58:51 Umaña R Daviau PA IMG CT PROCEDURES Final Resul t * Respiratory virus panel molecular study (01/26/2025 8:30 PM EDT) Pathologist [facility] Adenovirus Detection by PCR Not Detected Not Detected LAB MICROBIOLOGY METHOD 01/26/2025 9:51 PM EDT [facility] Influenza A PCR Not Detected Not Detected LAB MICROBIOLOGY METHOD 01/26/2025 9:51 PM EDT [facility] Influenza B PCR Not Detected Not Detected LAB MICROBIOLOGY METHOD 01/26/2025 9:51 PM EDT [facility] Coronavirus 229E Not Detected Not Detected LAB MICROBIOLOGY METHOD 01/26/2025 9:51 PM EDT [facility] Coronavirus HKU1 Not Detected Not Detected LAB MICROBIOLOGY METHOD 01/26/2025 9:51 PM EDT [facility] Coronavirus OC43 Not Detected Not Detected LAB MICROBIOLOGY METHOD 01/26/2025 9:51 PM EDT [facility] Coronavirus NL63 Not Detected Not Detected LAB MICROBIOLOGY METHOD 01/26/2025 9:51 PM EDT [facility] Parainfluenza Virus 1 Not Detected Not Detected LAB MICROBIOLOGY METHOD 01/26/2025 9:51 PM EDT [facility] Parainfluenza Virus 2 Not Detected Not Detected LAB MICROBIOLOGY METHOD 01/26/2025 9:51 PM EDT [facility] Parainfluenza Virus 3 Not Detected Not Detected LAB MICROBIOLOGY METHOD 01/26/2025 9:51 PM EDT [facility] Parainfluenza Virus 4 Not Detected Not Detected LAB MICROBIOLOGY METHOD 01/26/2025 9:51 PM EDT [facility] RSV PCR Not Detected Not Detected LAB MICROBIOLOGY METHOD 01/26/2025 9:51 PM EDT [facility] Human Metapneumovirus A and B Not Detected Not Detected LAB MICROBIOLOGY METHOD 01/26/2025 9:51 PM EDT [facility] Rhinovirus/Entero virus Not Detected Not Detected LAB MICROBIOLOGY METHOD 01/26/2025 9:51 PM EDT [facility] Bordetella pertussis Not Detected Not Detected LAB MICROBIOLOGY METHOD 01/26/2025 9:51 PM EDT [facility] Bordetella parapertussis Not Detected Not Detected LAB MICROBIOLOGY METHOD 01/26/2025 9:51 PM EDT [facility] Mycoplasma pneumo by PCR Not Detected Not Detected LAB MICROBIOLOGY METHOD 01/26/2025 9:51 PM EDT [facility] Chlamydia pneumoniae Not Detected Not Detected LAB MICROBIOLOGY METHOD 01/26/2025 9:51 PM EDT [facility] SARS COV-2 Not Detected Not Detected LAB MICROBIOLOGY METHOD 01/26/2025 9:51 PM EDT [facility] Swab Both anterior nares / Unknown Non-blood Collection / Unknown 01/26/2025 8:30 PM EDT 01/26/2025 8:57 PM EDT [facility] - 01/26/2025 9:51 PM EDT Testing was performed using the [employer] Respiratory Pathogen PCR Assay. All results must be correlated with the clinical findings. Results should not be used as the sole basis for diagnosis. False Negative results may occur from the presence of sequence variants in the region targeted by the assay or the presence of inhibitors. Results may be affected by concurrent antiviral/antimicrobial therapy or levels of organisms that are below the limit of detection. Leeroy KNOX LAB MICROBIOLOGY - GENERAL OR DERABLES Final Result [facility] [address] [place] [address], * ECG 12 lead (01/26/2025 8:17 PM EDT) [facility] Signature Ventricular Rate ECG 67 BPM GEMUSE Atrial Rate 67 BPM GEMUSE P-R Interval 196 ms GEMUSE QRS Duration 96 ms GEMUSE Q-T Interval 388 ms GEMUSE QTc 409 ms GEMUSE P Wave [place] 81 degrees GEMUSE R [place] 44 degrees GEMUSE T [place] 55 degrees GEMUSE ECG Interpretation Normal sinus rhythm Normal ECG When compared with ECG of 01-JUN-2018 09:15, No significant change was found Confirmed by LOUIS RHODES ([id number]) on 01/27/2025 10:54:56 AM GEMUSE 01/26/2025 8:17 PM EDT 01/27/2025 10:54 AM EDT Leeroy KNOX ECG ORDERABLES Final Result Performing Organization Address [facility]/ZIP Co de Phone Number GEMUSE * Troponin I high sensitivity (01/26/2025 8:15 PM EDT) [facility] High Sensitivity Troponin I 4 <=79 ng/L LAB CHEMISTRY METHOD 01/26/2025 9:23 PM EDT [facility] Blood Venous blood specimen / Unknown Venipuncture / Unknown 01/26/2025 8:15 PM EDT 01/26/2025 8:56 PM EDT Narrative [facility] - 01/26/2025 9:23 PM EDT High levels of biotin in samples may falsely decrease hsTroponin values. ??Use caution when interpreting hsTroponin results in patients taking biotin who exhibit renal impairment (eGFR <60) or in patients taking more than 20 mg/day of biotin. Leeroy KNOX LAB BLOOD ORDERABLES Final Re sult Performing Organization Address City/[facility]/ZIP Co de Phone Number [facility] [address] [place] [address], [place] [phone] * (ABNORMAL) CBC auto differential (01/26/2025 8:15 PM EDT) [facility] WBC 10.2 4.8 - 10.8 K/mcL LAB HEMETOLOGY METHOD 01/26/2025 9:04 PM EDT [facility] RBC 3.80(L) 4.50 - 5.50 M/mcL LAB HEMETOLOGY METHOD 01/26/2025 9:04 PM [facility] Hemoglobin 12.3(L) 13.5 - 17.5 g/dL LAB HEMETOLOGY METHOD 01/26/2025 9:04 PM [facility] Hematocrit 35.7(L) 42.0 - 54.0 % LAB HEMETOLOGY METHOD 01/26/2025 9:04 PM [facility] MCV 94.7 79.0 - 98.0 FL LAB HEMETOLOGY METHOD 01/26/2025 9:04 PM [facility] MCH 32.6(H) 27.0 - 32.0 pcg LAB HEMETOLOGY METHOD 01/26/2025 9:04 PM [facility] MCHC 34.5 32.0 - 37.0 g/dL LAB HEMETOLOGY METHOD 01/26/2025 9:04 PM [facility] RDW 12.5 11.0 - 15.0 % LAB HEMETOLOGY METHOD 01/26/2025 9:04 PM [facility] Platelets 320 130 - 400 K/mcL LAB HEMETOLOGY METHOD 01/26/2025 9:04 PM [facility] MPV 9.3 7.0 - 11.0 FL LAB HEMETOLOGY METHOD 01/26/2025 9:04 PM [facility] NRBC 0.0 <1.0 % LAB HEMETOLOGY METHOD 01/26/2025 9:04 PM [facility] NRBC Absolute 0.00 <0.10 K/mcL LAB HEMETOLOGY METHOD 01/26/2025 9:04 PM [facility] Neutrophils Relative 70.3 % LAB HEMETOLOGY METHOD 01/26/2025 9:04 PM [facility] Lymphocytes Relative 17.5 % LAB HEMETOLOGY METHOD 01/26/2025 9:04 PM EDT [facility] Monocytes Relative 8.3 % LAB HEMETOLOGY METHOD 01/26/2025 9:04 PM EDT [facility] Eosinophils Relative 3.2 % LAB HEMETOLOGY METHOD 01/26/2025 9:04 PM EDT [facility] Basophils Relative 0.4 % LAB HEMETOLOGY METHOD 01/26/2025 9:04 PM EDT [facility] Immature Granulocytes Relative 0.3 % LAB HEMETOLOGY METHOD 01/26/2025 9:04 PM EDT [facility] Neutrophils Absolute 7.17(H) 1.50 - 7.00 K/mcL LAB [facility]OLOGY [facility] Lymphocytes Absolute 1.79 1.00 - 5.00 K/mcL LAB HEMETOLOGY METHOD 01/26/2025 9:04 PM EDT [facility] Monocytes Absolute 0.85 0.20 - 1.00 K/mcL LAB HEMETOLOGY METHOD 01/26/2025 9:04 PM EDT [facility] Eosinophils Absolute 0.33 0.00 - 0.50 K/mcL LAB HEMETOLOGY METHOD 01/26/2025 9:04 PM EDT [facility] [facility] Basophils Absolute 0.04 0.00 - 0.20 K/mcL LAB HEMETOLOGY METHOD 01/26/2025 9:04 PM EDT [facility] Immature Granulocytes Absolute 0.03 0.00 - 0.03 K/mcL LAB HEMETOLOGY METHOD 01/26/2025 9:04 PM [facility] Blood Venous blood specimen / Unknown Venipuncture / Unknown 01/26/2025 8:15 PM EDT 01/26/2025 8:56 PM EDT Leeroy KNOX [facility] BLOOD ORDERABLES Final Re sult [facility] [address] [place] [address], * (ABNORMAL) Basic metabolic panel (01/26/2025 8:15 PM EDT) Sodium 137 133 - 145 mmol/L LAB CHEMISTRY METHOD 01/26/2025 9:20 PM EDT [facility] Potassium 4.7 3.5 - 5.5 mmol/L LAB CHEMISTRY METHOD 01/26/2025 9:20 PM [facility] Chloride 106 96 - 110 mmol/L LAB CHEMISTRY METHOD 01/26/2025 9:20 PM [facility] CO2 25 21 - 32 mmol/L LAB CHEMISTRY METHOD 01/26/2025 9:20 PM [facility] Anion Gap 6 3 - 11 LAB CHEMISTRY METHOD 01/26/2025 9:20 PM [facility] Glucose 153(H) 70 - 100 mg/dL LAB CHEMISTRY METHOD 01/26/2025 9:20 PM [facility] BUN 25 5 - 25 mg/dL LAB CHEMISTRY METHOD 01/26/2025 9:20 PM [facility] Creatinine 1.01 0.70 - 1.30 mg/dL LAB CHEMISTRY METHOD 01/26/2025 9:20 PM EDT [facility] eGFR 82 >=60 mL/min/1. 73m2 LAB CHEMISTRY METHOD 01/26/2025 9:20 PM [facility] Comment:Calculation based on the??Chronic Kidney Disease Epidemiology Collaboration (CKD-EPI) equation refit??without adjustment for race. BUN/Creatinine Ratio 24.8 LAB CHEMISTRY METHOD 01/26/2025 9:20 PM [facility] Calcium 9.1 8.5 - 10.5 mg/dL LAB CHEMISTRY METHOD 01/26/2025 9:20 PM EDT [facility] Blood Venous blood specimen / Unknown Venipuncture / Unknown 01/26/2025 8:15 PM EDT 01/26/2025 8:56 PM EDT us Leeroy KNOX LAB BLOOD ORDERABLES Final Re sult [facility] ([facility] [address] [place] [address], from Last 3 Months Insurance MEDICARE MEDICAID - [place] Care Teams Linoleum Tile Layer Relationship Specialty Start Date End Date Lloyd Woods MD [address] [place] [id number] PCP - General Internal Medicine 12/23/11
--- OUTSIDE RECORDS SUMMARY | 2025-02-11 15:58 | XMS_ITS ---
Author Organization [facility] Address [address] [place] [address] Care Team Providers Care Beet End Supervisor Name Role Phone Chuck VEGA, Lloyd Primary Care Provider Talha Sanabria Unavailable [phone] Encounters Encounter Location Date Provider Diagnosis [address] [address] 10/12/2024 Talha Soto Plan Of Treatment No Information Progress Notes * Daryn DUNCANDOB: [birth year] (69 yo M)Acc No.[id number]:10/12/2024 Progress Note Patient:?Daryn DUNCAN Provider:?Talha Soto DPM :1955???Age:69 Y???Sex:Male Dylan e:10/12/2024 [address] Pcp:Lloyd Woods MD Subjective: * Chief Complaints: [...] Soto DPM Date:?2023 Generated for Printi ng/Faxing/eTransmitting on:?02/11/2025 03:57 PM EDT
--- OUTSIDE RECORDS SUMMARY | 2025-02-11 15:58 | XMS_ITS | Patient Health Record ---
Author Organization [facility] Address [address] [place] [address] Care Team Providers Care Remote Broadcast Technician Name Role Phone Chuck VEGA, [facility] Primary Care Provider Talha Sanabria Unavailable [phone] Allergies No Known Allergies Reason For Referral No Information Medications Medication SIG (Take, Route, Fr equency, Duration) Notes Start Date End Date Status Montelukast Sodium A ctive amLODIPine Besylate Active Lisinopril Active Finasteride Active Omeprazole Active Gabapentin Active oxyCODONE HCl Active Anoro Ellipta Active Ciclopirox 0.77 % 1 application Forest Pathologist ally Twice a day for 365 days [...] Problem Status W/U Status Risk Notes Problem [id number] Fungal infection of nail (B35.1) Active confirmed Rx management (4) Vital Signs Height 5 ft 11 in in 06/22/2024 Weight 168 lbs 06/22/2024 BMI 23.43 kg/m2 06/22/2024 Encounters Encounter Location Date Provider Diagnosis [facility] [address] [place] [address] 06/22/2024 Talha Soto Fungal infection of nail B35.1 ; Pain in right toe(s) M79.674 and Pain in left toe(s) M79.675 [facility] [address] [place] [address] 06/08/2024 [facility] [place] [address] [place] [address] 09/21/2024 [facility] [place] [address] [place] [address] 10/12/2024 Talha Soto Assessments Encounter Date Diagnosis [...] Insured Coverage Start Date Coverage End Date [facility] SCO Claims [address] [place] [phone] [id number] Daryn Duncan Self - patient is the insured Medical (General) History Medical History History ICD Code Arthritis asthma Back,Hip,and Knee pain Cancer Hypertension Stomach ulcer Measles Chicken pox Joint implants/screws Surgical History Surgery Date(Month/Year) neck surgery Lower back surgery shoulder surgery
--- OUTSIDE RECORDS SUMMARY | 2025-02-11 15:58 | XMS_ITS ---
Author Organization [facility] Address [address] [place] [address] Care Team Providers Care Strip Presser Name Role Phone Chuck VEGA, Lloyd Primary Care Provider Talha Sanabria Unavailable [phone] Medications Medication SIG (Take, Route, Fr equency, Duration) Notes Start Date End Date Status Montelukast Sodium A ctive amLODIPine Besylate Active Anoro Ellipta Active Ciclopirox 0.77 % 1 application Stock Sorter ally Twice a day for 365 days Active Vitamin D3 Active Lisinopril Active Finasteride Active Omeprazole Active Gabapentin Active oxyCODONE HCl Active Encounters Encounter Location Date Provider Diagnosis [address] [address] 09/21/2024 Talha Soto Plan Of Treatment No Information Progress Notes * Daryn DUNCANDOB: [birth year] (69 yo M)Acc No.[id number]:09/21/2024 Progress Note Patient:?Daryn DUNCAN Provider:?Talha Soto DPM :1955???Age:69 Y???Sex:Male Dylan e:09/21/2024 Address[address] [id number] Pcp:Lloyd Woods MD Subjective: * Chief Complaints: [...] * Provider:Ari Soto DPM Date:?2023 Generated for Tiara solis/Stormy/Tiffanie on:?02/11/2025 03:58 PM EDT
--- OUTSIDE RECORDS SUMMARY | 2025-02-11 15:58 | XMS_ITS ---
Author Organization [facility] Address [address] [place] [address] Care Team Providers Care Ophthalmic Medical Technician Name Role Phone Chuck VEGA, Asma Primary Care Provider Talha Sanabria Unavailable [phone] REASON FOR VISIT SD cx 10/12 Encounters Encounter Location Date Provider Diagnosis [facility] [address] [place] [address] 10/12/2024 Talha Soto Plan Of Treatment No Information Progress Notes * DAKOTADarynDOB: [birth year] (69 yo M)Acc No.[id number]:10/12/2024 Patient:?Daryn DUNCAN :1955???Age:69 Y???Sex:Male Address:[address] [place] [address] * true * Date:? Generated for Tiara solis/Stormy/eTransmitting on:?02/11/2025 03:57 PM EDT
== END 2025-02-11 15:41 | disposition home or self-care (01) ==
LOC: HO.HUSH 14:21
PROVIDERS: PCP Internal Medicine; Visit Provider Urology
DX: C61 Malignant neoplasm of prostate (principal); R35.1 Nocturia; R68.82 Decreased libido
CPT/HCPCS: 99213; G2211

== ENCOUNTER → 2025-02-11 14:20 | Outpatient (BNVA) | payer MEDICARE, MEDICAID, SELFPAY | PROVIDERS: PCP Internal Medicine; Visit Provider Urology | DX: R35.1 Nocturia (principal); R68.82 Decreased libido; C61 Malignant neoplasm of prostate | CPT/HCPCS: 99212 ==

== ENCOUNTER 2025-03-09 09:16 | Outpatient (AMB) | payer MEDICARE, MEDICAID, SELFPAY ==
[2025-03-09 09:17] VITALS: BP 130/76; PULSE 55; O2SAT 93; BMI 24.5
--- NOTE | 2025-03-09 09:17 | MHC.PC.OV ---
Vital Signs 03/09/25 09:17 Height 5 ft 11 in Weight 175 lb 6 oz BMI 24.5 BP 130/76 Blood Pressure Location Lt brachial Position Sitting Pulse 55 Pulse Source Pulse Oximeter Pulse Oximetry (%) 93 Oxygen Delivery Method Room Air Intake Visit Reasons: med visit Allergies No Known Allergies Allergy (Verified 02/11/25 14:28) Medication List - Last Reconciled 03/09/25 by Lloyd Woods MD albuterol sulfate 90 mcg/actuation 2 puffs inhalation Q4-6H PRN amlodipine 10 mg PO DAILY 90 days Anoro Ellipta 62.5-25 mcg/actuation (umeclidinium-vilanterol) 1 inh inhalation DAILY NS cholecalciferol (vitamin D3) 25 mcg PO DAILY 90 days cyclobenzaprine 5 mg PO BEDTIME PRN 30 days fluticasone furoate 27.5 mcg/actuation (Flonase Sensimist) 1 spray intranasal DAILY 30 days gabapentin 300 mg PO BID ipratropium-albuterol 0.5 mg-3 mg(2.5 mg base)/3 mL 3 mL inhalation Q6-8H PRN 30 days leuprolide acetate (6 month) (Eligard) 45 mg subcut [id number] lisinopril 40 mg PO DAILY 90 days montelukast 10 mg PO DAILY 90 days omeprazole 20 mg PO DAILY oxycodone 10 mg PO TID 30 days sucralfate (Carafate) 10 mL PO Q6H 10 days Tobacco use date assessed: 02/04/25 Dental Screening Dental Screen Date: 01/07/25 HPI med visit HPI Details History - The patient is a 69-year-old male with a history of COPD, smoking, environmental allergies, bilateral shoulder pain, failed back syndrome, impaired fasting sugar, vitamin-D deficiency Came in for his narcotic pain medication refill Suffers from chronic neck and lower back pain history of surgeries Problem List - Tobacco Use Disorder - failed back syndrome Patient Instructions - Continue taking prescribed medications as discussed. - Refrain from smoking and excessive alcohol consumption, aiming to reduce or stop use. Review of Systems - General: No fever no chills - Neurological: No headaches no dizziness - Ear nose throat: No sore throat no hearing difficulty no ear pain - Cardiovascular: No syncope, no chest pain, no palpitations - Gastrointestinal: No nausea vomiting or diarrhea Physical Exam General: No acute distress HEENT: No acute findings Neck: Supple Respiratory system: Able to talk in full sentences, no audible wheeze Cardiovascular: S1-S2 regular in rate and rhythm Gastrointestinal: No pain Extremities: Sore arm BAKERY TEAM MEMBER: Alert awake oriented x3 motor sensory intact Skin: Normal turgor [facility] Medical History Arthritis Back pain Hx of radiation therapy HTN (hypertension) Colitis Colon cancer screening Nocturia Heartburn Muscle spasms of neck Pain management Opioid dependence Hypertension, essential GERD (gastroesophageal reflux disease) Smokers' cough Drug induced constipation COPD (chronic obstructive pulmonary disease) Tobacco abuse Asthma Failed back syndrome Surgical History H/O colonoscopy (~06/04/24) History of colonoscopy (04/10/10) History of rotator cuff surgery History of repair of laceration History of fusion of cervical spine History of laminectomy Family History Father HTN (hypertension) Lung cancer Mother HTN (hypertension) Dementia Breast cancer Maternal Grandmother No problems noted. Maternal Grandfather No problems noted. Paternal Grandfather No problems noted. Paternal Grandmother No problems noted. Brother Throat cancer Lung cancer Brother No problems noted. Daughter No problems noted. Daughter No problems noted. Sister Ovarian cancer Sister No problems noted. Sister No problems noted. Sister No problems noted. Maternal Aunt Breast cancer Social History Household Members: Family Housing: House Are you a primary manager long term care to a significant other at home: No Do you presently have visiting nurse or other home services: No Alcohol intake: current Alcohol intake frequency: holidays/special occasions only Patient Tobacco Use Status: Current everyday Tobacco user Tobacco use type: Cigarette Cigarette Packs Per Day: 1.0 Cigarettes Per Day: 20.0 e-Cigarette/Vaping Use: Never Used service: No Current occupational status: disabled Cognitive needs: No Hearing needs: No Vision needs: Yes Questionnaire Thrive Questionnaire Date Thrive assessed: 01/07/25 VIVIANA-7 AMB Questionnaire VIVIANA-7 Date VIVIANA - 7 assessed: 01/07/25 Source: Developed by Blanca Anderson B.W. Jovany, Kelton Mooney and colleagues, with an educational homa from [employer]. Physical exam (Primary Care) Vital Signs: Last Vital Signs Pulse 55 03/09/25 09:17 BP 130/76 03/09/25 09:17 Pulse Ox 93 03/09/25 09:17 Oxygen Delivery Method Room Air 03/09/25 09:17 BMI result Body Mass Index 24.5 Tobacco/Smoking Status: Tobacco use Status Tobacco use date assessed 02/04/25 03/09/25 09:18 Patient Tobacco Use Status Current everyday Tobacco 03/09/25 09:18 Tobacco use type Cigarette 03/09/25 09:18 e-Cigarette/Vaping Use Never Used 03/09/25 09:18 Thrive Assessment: Date of Thrive Assessment Date Thrive assessed 01/07/25 03/09/25 09:18 Coding Level of Care Code Est Pt Level 3 (80046) Diagnoses Failed back syndrome M96.1 Tobacco abuse Z72.0 Uncomplicated opioid dependence F11.20 Substance use status: uncomplicated Pain management R52 Muscle spasms of neck M62.838 Assessment & Plan Assessment & Plan (1) Failed back syndrome: Code(s): M96.1 - Postlaminectomy syndrome, not elsewhere classified Category: Medical (2) Tobacco abuse: Code(s): Z72.0 - Tobacco use Category: Medical (3) Opioid dependence: Comment: CONTROLLED NATURE OF MEDICATION WAS DISCUSSED, IT IS IMPORTANT TO NOTIFY ME OF CHANGE OF PHARMACY, OR IF TRAVELING. DO NOT SHARE THE MEDICATION WITH ANYBODY, KEEP IT SAFE AWAY FROM THE HANDS OF SMALL CHILDREN, AND ONLY TAKE IT PRESCRIBED. THIS MEDICATION HAVE A TENDENCY TO BE ABUSED, HABIT-FORMING, AND IT CAN CAUSE SEVERE CONSTIPATION ALONG WITH OTHER ALLERGIC REACTIONS. LONG-TERM USE OF NARCOTIC MEDICATIONS HAVE SHOWN TO INCREASE SENSITIVITY TO PAIN. Code(s): F11.20 - Opioid dependence, uncomplicated Category: Medical Qualifiers: Substance use status: uncomplicated Qualified Code(s): F11.20 - Opioid dependence, uncomplicated (4) Pain management: Code(s): R52 - Pain, unspecified Category: Medical (5) Muscle spasms of neck: Code(s): M62.838 - Other muscle spasm Category: Medical Plan History - The patient is a 69-year-old male with a history of COPD, smoking, environmental allergies, bilateral shoulder pain, failed back syndrome, impaired fasting sugar, vitamin-D deficiency Came in for his narcotic pain medication refill Suffers from chronic neck and lower back pain history of surgeries Problem List - Tobacco Use Disorder - failed back syndrome Patient Instructions - Continue taking prescribed medications as discussed. - Refrain from smoking and excessive alcohol consumption, aiming to reduce or stop use. Medications: Refilled gabapentin 300 mg PO BID 60 caps 0RF oxycodone partial refill allowed 10 mg PO TID 30 days 90 tabs 0RF pain F11.20 - Opioid dependence, uncomplicated, M96.1 - Postlaminectomy syndrome, not elsewhere classified, R52 - Pain, unspecified cyclobenzaprine 5 mg PO BEDTIME 30 days PRN 30 tabs 0RF muscle spasm M62.838 - Other muscle spasm, R52 - Pain, unspecified
--- OUTSIDE RECORDS SUMMARY | 2025-03-09 09:53 | XMS_ITS | Patient Health Record ---
Author Organization [facility] Address [address] [place] [address] Care Team Providers Care Health Science Specialist Name Role Phone Chuck VEGA, [facility] Primary Care Provider Talha Sanabria Unavailable [phone] Allergies No Known Allergies Reason For Referral No Information Medications Medication SIG (Take, Route, Fr equency, Duration) Notes Start Date End Date Status Montelukast Sodium A ctive amLODIPine Besylate Active Lisinopril Active Finasteride Active Omeprazole Active Gabapentin Active oxyCODONE HCl Active Anoro Ellipta Active Ciclopirox 0.77 % 1 application Automatic Clipper ally Twice a day for 365 days [...] Problem Status W/U Status Risk Notes Problem [id number] Fungal infection of nail (B35.1) Active confirmed Rx management (4) Vital Signs Height 5 ft 11 in in 06/22/2024 Weight 168 lbs 06/22/2024 BMI 23.43 kg/m2 06/22/2024 Encounters Encounter Location Date Provider Diagnosis [facility] [address] [place] [address] 06/22/2024 Talha Soto Fungal infection of nail B35.1 ; Pain in right toe(s) M79.674 and Pain in left toe(s) M79.675 [facility] [address] [place] [address] 06/08/2024 [facility] [place] [address] [place] [address] 09/21/2024 [facility] [place] [address] [place] [address] 10/12/2024 Talha Soto Assessments Encounter Date Diagnosis [...] Insured Coverage Start Date Coverage End Date [facility] SCO Claims [address] [place] [phone] [id number] Daryn Duncan Self - patient is the insured Medical (General) History Medical History History ICD Code Arthritis asthma Back,Hip,and Knee pain Cancer Hypertension Stomach ulcer Measles Chicken pox Joint implants/screws Surgical History Surgery Date(Month/Year) neck surgery Lower back surgery shoulder surgery
--- OUTSIDE RECORDS SUMMARY | 2025-03-09 09:53 | XMS_ITS ---
Author Organization [facility] Address [address] [place] [address] Care Team Providers Care Furniture Finisher Helper Name Role Phone Chuck VEGA, Lloyd Primary Care Provider Talha Sanabria Unavailable [phone] Medications Medication SIG (Take, Route, Fr equency, Duration) Notes Start Date End Date Status Montelukast Sodium A ctive amLODIPine Besylate Active Anoro Ellipta Active Ciclopirox 0.77 % 1 application Environmental Associate ally Twice a day for 365 days Active Vitamin D3 Active Lisinopril Active Finasteride Active Omeprazole Active Gabapentin Active oxyCODONE HCl Active Encounters Encounter Location Date Provider Diagnosis [address] [address] 09/21/2024 Talha Soto Plan Of Treatment No Information Progress Notes * Daryn DUNCANDOB: [birth year] (69 yo M)Acc No.[id number]:09/21/2024 Progress Note Patient:?Daryn DUNCAN Provider:?Talha Soto DPM :1955???Age:69 Y???Sex:Male Dylan e:09/21/2024 Address[address] [id number] Pcp:Lloyd Woods MD Subjective: * Chief Complaints: [...] Soto DPM Date:?2023 Generated for Tiara solis/Stormy/Tiffanie on:?03/09/2025 09:53 AM EDT
--- OUTSIDE RECORDS SUMMARY | 2025-03-09 09:53 | XMS_ITS ---
Author Organization [facility] Address [address] [place] [address] Care Team Providers Care Helper Chicken Farm Name Role Phone Chuck VEGA, Lloyd Primary Care Provider Talha Sanabria Unavailable [phone] Encounters Encounter Location Date Provider Diagnosis [address] [address] 10/12/2024 Talha Soto Plan Of Treatment No Information Progress Notes * Daryn DUNCANDOB: [birth year] (69 yo M)Acc No.[id number]:10/12/2024 Progress Note Patient:?Daryn DUNCAN Provider:?Talha Soto DPM :1955???Age:69 Y???Sex:Male Dylan e:10/12/2024 [address] Pcp:Lloyd Woods MD Subjective: * Chief Complaints: [...] Soto DPM Date:?2023 Generated for Printi ng/Faxing/eTransmitting on:?03/09/2025 09:52 AM EDT
--- OUTSIDE RECORDS SUMMARY | 2025-03-09 09:53 | XMS_ITS | Clinical Summary ---
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 Name Role Phone Lloyd Woods MD Primary Care Provider [phone] Allergies No known active allergies Medications No known medications Active Problems No known active problems Encounters Date Type Department Care Team Description 01/26/2025 7:59 PM EDT - 01/27/2025 1:19 AM EDT Emergency [facility] Emergency [address] [place] [address] Acute pain of left shoulder (Primary Dx); Chronic neck pain Discharge Disposition: Home or Self Care from Last 3 Months Medical History Medical History Date Comments COPD (chronic obstructive pu lmonary disease) ([facility] [place], [facility] [place] V28[place] DX:COPD (chronic o bstructive pulmonary disease) ([facility]) GERD (gastroesophageal reflux disease) DX:GERD (gastroesophageal reflux disease) Heart burn DX:Heart burn Drug induced constipation DX:Jair g induced constipation Failed back syndrome DX:Failed b ack syndrome Muscle spasm DX:Muscle spasm Essential (primary) hypertension DX:Essential (primary) hypertension Opioid dependence ([facility] [place] V 24, [facility] [place] V28) DX:Opioid dependence ([facility]) Prostate cancer ([facility] [place]24 , [facility] [place] V28) Social History Tobacco Use Types Packs/Day Years [...] Vaccine ( season) 2024 12/01/2021, 03/30/2021, 03/09/2021 Hypertension/CHF/CAD Annual BMP Blood Test 01/26/2026 01/26/2025 RSV Immunization Adult Patients (1 - 1-dose [...] age to complete this topic Meningococcal B Vaccine Aged Out No l onger eligible based on patient's age to complete [...] calcific bursitis of the acromioclavicular joint. Code 02246 -------- FINAL REPORT -------- Dictated By: Gordon Diaz Dictated Date: 01/27/2025 07:58 ET Assigned Physician: Gordon Diaz Reviewed and Electronically Signed By: Gordon Diaz Signed Date: 01/27/2025 08:00 ET Workstation ID: [id number] Transcribed By: Self Edit Transcribed Date: 01/27/2025 [...] of calcific bursitis of the acromioclavicularjoint. Code 22093 -------- FINAL REPORT -------- Dictated By: Gordon Diaz Dictated Date: 01/27/2025 07:58 ET Assigned Physician: Gordon Diaz Reviewed and Electronically Signed By: Gordon Diaz Signed Date: 01/27/2025 08:00 ET Workstation ID: [id number] Transcribed By: Self Edit Transcribed Date: 01/27/2025 07:58 ET Leeroy KNOX IMG XR PROCEDURES Final Resul t * (ABNORMAL) Urinalysis with reflex microscopic and culture (01/26/2025 10:40 PM EDT) Specific Atkins Urine 1.021 1.003 - 1.030 LAB URINALYSIS - AUTOMATED METHOD 01/27/2025 12:[address] [facility] pH, Urine 5.5 5.0 - 8.0 pH LAB URINALYSIS - AUTOMATED METHOD 01/27/2025 12:08 AM [facility] Leukocytes, Urine Negative Negative LAB URINALYSIS - AUTOMATED METHOD 01/27/2025 12:08 AM [facility] Nitrite, Urine Negative Negative LAB URINALYSIS - AUTOMATED METHOD 01/27/2025 12:08 AM [facility] Protein, Urine Negative <=Trace mg/dL LAB URINALYSIS - AUTOMATED METHOD 01/27/2025 12:08 AM [facility] Glucose, Urine 250(A) Negative mg/dL LAB URINALYSIS - AUTOMATED METHOD 01/27/2025 12:08 AM [facility] Ketones, Urine Negative Negative mg/dL LAB URINALYSIS - AUTOMATED METHOD 01/27/2025 12:08 AM [facility] Urobilinogen, Urine 0.2 0.2 - 1.0 mg/dL LAB URINALYSIS - AUTOMATED METHOD 01/27/2025 12:08 AM [facility] Bilirubin, Urine Negative Negative LAB URINALYSIS - AUTOMATED METHOD 01/27/2025 12:08 AM [facility] Blood, Urine Negative Negative LAB URINALYSIS - AUTOMATED METHOD 01/27/2025 12:08 AM [facility] Urine Urine specimen obtained by clean catch procedure / Unknown Non-blood Collection / Unknown 01/26/2025 10:40 PM EDT 01/26/2025 11:55 PM EDT us Leeroy KNOX LAB URINE ORDERABLES Final Re sult [facility] [address] [place] [address], * Fernando urine culture tube (01/26/2025 10:40 PM EDT) Extra Tube Hold for add-ons. 01/27/2025 1:04 AM [facility] Comment:Auto resulted. Urine Urine specimen obtained by clean catch procedure / Unknown Non-blood Collection / Unknown 01/26/2025 10:40 PM EDT 01/26/2025 11:55 PM EDT us Leeroy KNOX LAB URINE ORDERABLES Final Re sult [facility] [address] [place] [address], [place] [phone] * (ABNORMAL) Drug abuse screen 8a panel, urine (01/26/2025 10:40 PM EDT) Amphetamine Screen, Ur Negative Negative LAB CHEMISTRY METHOD 5 2:[address] [facility] Comment:Certain OTC medicati ons containing ephedrine, phenylephrine, pseudoephedrine and phenylpropanolamine can cause false positive results. Barbiturate Screen, Ur Negative Negative LAB CHEMISTRY METHOD 5 2:[address] [facility] Benzodiazepine Screen, Ur Negative Negative LAB CHEMISTRY METHOD 5 2:[address] [facility] Cocaine Screen, Ur Negative Negative LAB CHEMISTRY METHOD 5 2:48 AM [facility] Opiate Screen, Ur Positive(A ) Negative LAB CHEMISTRY METHOD 5 2:[address] [facility] Cannabinoid (THC) Screen, Ur Negative Negative LAB CHEMISTRY METHOD 5 2:[address] [facility] Comment:Specimens from patie nts taking pantoprazole sodium (Protonix) have been shown to produce false positive results. Oxycodone Screen, Ur Positive(A ) Negative LAB CHEMISTRY METHOD 5 2:[address] [facility] Fentanyl, Ur Negative Negative LAB CHEMISTRY METHOD 5 2:48 AM [facility] Urine Urine specimen obtained by clean catch procedure / Unknown Non-blood Collection / Unknown 01/26/2025 10:40 PM EDT 01/26/2025 11:[address] [facility] - 01/27/2025 2:48 AM EDT [...] KNOX LAB URINE ORDERABLES Final Re sult [facility] [address] [place] [address], [place] [phone] * XR Chest 2 Views (01/26/2025 9:15 [...] Signed Date: 01/27/2025 08:24 ET Workstation ID: [id number] Transcribed By: Self Edit Transcribed Date: 01/27/2025 [...] Signed Date: 01/27/2025 08:24 ET Workstation ID: [id number] Transcribed By: Self Edit Transcribed Date: 01/27/2025 [...] by: Brynn Awad MD on 01/26/2025 20:58:[address] PROCEDURES Final Resul t * Respiratory virus panel molecular study (01/26/2025 8:30 PM EDT) [facility] Adenovirus Detection by PCR Not Detected Not Detected LAB MICROBIOLOGY METHOD 01/26/2025 9:[address] [facility] Influenza A PCR Not Detected Not Detected LAB MICROBIOLOGY METHOD 01/26/2025 9:[address] [facility] Influenza B PCR Not Detected Not Detected LAB MICROBIOLOGY METHOD 01/26/2025 9:[address] [facility] Coronavirus 229E Not Detected Not Detected LAB MICROBIOLOGY METHOD 01/26/2025 9:[address] [facility] Coronavirus HKU1 Not Detected Not Detected LAB MICROBIOLOGY METHOD 01/26/2025 9:[address] [facility] Coronavirus OC43 Not Detected Not Detected LAB MICROBIOLOGY METHOD 01/26/2025 9:[address] [facility] Coronavirus NL63 Not Detected Not Detected LAB MICROBIOLOGY METHOD 01/26/2025 9:[address] [facility] Parainfluenza Virus 1 Not Detected Not Detected LAB MICROBIOLOGY METHOD 01/26/2025 9:[address] [facility] Parainfluenza Virus 2 Not Detected Not Detected LAB MICROBIOLOGY METHOD 01/26/2025 9:[address] [facility] Parainfluenza Virus 3 Not Detected Not Detected LAB MICROBIOLOGY METHOD 01/26/2025 9:[address] [facility] Parainfluenza Virus 4 Not Detected Not Detected LAB MICROBIOLOGY METHOD 01/26/2025 9:[address] [facility] RSV PCR Not Detected Not Detected LAB MICROBIOLOGY METHOD 01/26/2025 9:[address] [facility] Human Metapneumovirus A and B Not Detected Not Detected LAB MICROBIOLOGY METHOD 01/26/2025 9:[address] [facility] Rhinovirus/Entero virus Not Detected Not Detected LAB MICROBIOLOGY METHOD 01/26/2025 9:[address] [facility] Bordetella pertussis Not Detected Not Detected LAB MICROBIOLOGY METHOD 01/26/2025 9:[address] [facility] Bordetella parapertussis Not Detected Not Detected LAB MICROBIOLOGY METHOD 01/26/2025 9:[address] [facility] Mycoplasma pneumo by PCR Not Detected Not Detected LAB MICROBIOLOGY METHOD 01/26/2025 9:[address] [facility] Chlamydia pneumoniae Not Detected Not Detected LAB MICROBIOLOGY METHOD 01/26/2025 9:[address] [facility] SARS COV-2 Not Detected Not Detected LAB MICROBIOLOGY METHOD 01/26/2025 9:[address] [facility] Swab Both anterior nares / Unknown Non-blood Collection / Unknown 01/26/2025 8:30 PM EDT 01/26/2025 8:57 PM EDT [facility] - 01/26/2025 9:51 PM EDT Testing was performed using the [employer] Respiratory Pathogen PCR Assay. All results must [...] MICROBIOLOGY - GENERAL OR DERABLES Final Result [facility] [address] [place] [address], * ECG 12 lead (01/26/2025 8:17 PM EDT) Ventricular Rate ECG 67 BPM GEMUSE Atrial Rate 67 BPM GEMUSE P-R Interval 196 ms GEMUSE QRS Duration 96 ms GEMUSE Q-T Interval 388 ms GEMUSE QTc 409 ms GEMUSE P Wave [place] 81 degrees GEMUSE R [place] 44 degrees GEMUSE T [place] 55 degrees GEMUSE ECG Interpretation Normal sinus rhythm Normal ECG When compared with ECG of 01-JUN-2018 09:15, No significant change was found Confirmed by LOUIS RHODES ([id number]) on 01/27/2025 10:54:56 AM GEMUSE 01/26/2025 8:17 PM EDT 01/27/2025 10:54 AM EDT Leeroy KNOX ECG ORDERABLES Final Result Performing Organization Address [facility] Co de Phone Number GEMUSE * Troponin I high sensitivity (01/26/2025 8:15 PM EDT) [facility] High Sensitivity Troponin I 4 <=79 ng/L LAB CHEMISTRY METHOD 01/26/2025 9:[address] [facility] Blood Venous blood specimen / Unknown Venipuncture / Unknown 01/26/2025 8:15 PM EDT 01/26/2025 8:[address] [facility] - 01/26/2025 9:23 PM EDT High levels of biotin in samples may falsely decrease hsTroponin values. ??Use caution when interpreting hsTroponin results in patients taking biotin who exhibit renal impairment (eGFR <60) or in patients taking more than 20 mg/day of biotin. Leeroy KNOX LAB BLOOD ORDERABLES Final Re sult Performing Organization Address City/[facility]/ZIP Co de Phone Number [facility] [address] [place] [address], [place] [phone] * (ABNORMAL) CBC auto differential (01/26/2025 8:15 PM EDT) [facility] WBC 10.2 4.8 - 10.8 K/[facility] LAB HEMETOLOGY METHOD 01/26/2025 9:[address] [facility] RBC 3.80(L) 4.50 - 5.50 M/mcL LAB HEMETOLOGY [facility] Hemoglobin 12.3(L) 13.5 - 17.5 g/dL LAB HEMETOLOGY METHOD 01/26/2025 9:[facility] Hematocrit 35.7(L) 42.0 - 54.0 % LAB HEMETOLOGY METHOD 01/26/2025 9:04 PM [facility] MCV 94.7 79.0 - 98.0 FL LAB HEMETOLOGY METHOD 01/26/2025 9:04 PM [facility] MCH 32.6(H) 27.0 - 32.0 pcg LAB HEMETOLOGY METHOD 01/26/2025 9:04 PM [facility] MCHC 34.5 32.0 - 37.0 g/dL LAB HEMETOLOGY METHOD 01/26/2025 9:04 PM [facility] RDW 12.5 11.0 - 15.0 % LAB HEMETOLOGY METHOD 01/26/2025 9:04 PM [facility] Platelets 320 130 - 400 K/mcL LAB HEMETOLOGY METHOD 01/26/2025 9:04 PM [facility] MPV 9.3 7.0 - 11.0 FL LAB HEMETOLOGY METHOD 01/26/2025 9:04 PM [facility] NRBC 0.0 <1.0 % LAB HEMETOLOGY METHOD 01/26/2025 9:04 PM [facility] NRBC Absolute 0.00 <0.10 K/mcL LAB HEMETOLOGY METHOD 01/26/2025 9:04 PM [facility] Neutrophils Relative 70.3 % LAB HEMETOLOGY METHOD 01/26/2025 9:04 PM [facility] Lymphocytes Relative 17.5 % LAB HEMETOLOGY METHOD 01/26/2025 9:[address] [facility] Monocytes Relative 8.3 % LAB HEMETOLOGY METHOD 01/26/2025 9:[address] [facility] Eosinophils Relative 3.2 % LAB HEMETOLOGY METHOD 01/26/2025 9:04 PM [facility] Basophils Relative 0.4 % LAB HEMETOLOGY METHOD [facility]/26[facility]2025 [facility] Immature Granulocytes Relative 0.3 % LAB HEMETOLOGY METHOD 01/26[facility]2025 9:[facility] Neutrophils Absolute 7.17(H) 1.50 - 7.00 K/mcL LAB HEMETOLOGY METHOD 01/26/2025 9:04 PM [facility] Lymphocytes Absolute 1.79 1.00 - 5.00 K/mcL LAB HEMETOLOGY METHOD 01/26/2025 9:04 PM [facility] Monocytes Absolute 0.85 0.20 - 1.00 K/mcL LAB HEMETOLOGY METHOD 01/26/2025 9:04 PM [facility] Eosinophils Absolute 0.33 0.00 - 0.50 K/mcL LAB HEMETOLOGY METHOD 01/26/2025 9:04 PM [facility] Basophils Absolute 0.04 0.00 - 0.20 K/mcL LAB HEMETOLOGY METHOD 01/26/2025 9:[address] [facility] Immature Granulocytes Absolute 0.03 0.00 - 0.03 K/mcL LAB HEMETOLOGY METHOD 01/26/2025 9:04 PM [facility] Blood Venous blood specimen / Unknown Venipuncture / Unknown 01/26/2025 8:15 PM EDT 01/26/2025 8:56 PM EDT us Leeroy KNOX LAB BLOOD ORDERABLES Final Re sult [facility] [address] [place] [address], * (ABNORMAL) Basic metabolic panel (01/26/2025 8:15 PM EDT) Sodium 137 133 - 145 mmol/L LAB CHEMISTRY METHOD 01/26/2025 9:[address] [facility] Potassium 4.7 3.5 - 5.5 mmol/L LAB CHEMISTRY METHOD 01/26/2025 9:20 PM [facility] Chloride 106 96 - 110 mmol/L LAB CHEMISTRY METHOD 01/26/2025 9:20 PM [facility] CO2 25 21 - 32 mmol/L LAB CHEMISTRY METHOD 01/26/2025 9:20 PM [facility] Anion Gap 6 3 - 11 LAB CHEMISTRY METHOD 01/26/2025 9:20 PM [facility] Glucose 153(H) 70 - 100 mg/dL LAB CHEMISTRY METHOD 01/26/2025 9:20 PM [facility] BUN 25 5 - 25 mg/dL LAB CHEMISTRY METHOD 01/26/2025 9:20 PM [facility] Creatinine 1.01 0.70 - 1.30 mg/dL LAB CHEMISTRY METHOD [facility] eGFR 82 >=60 mL/min/1. 73m2 LAB CHEMISTRY METHOD 01/26/2025 9:20 PM [facility] Comment:Calculation based on the??Chronic Kidney Disease Epidemiology Collaboration (CKD-EPI) equation refit??without adjustment for race. BUN/Creatinine Ratio 24.8 LAB CHEMISTRY METHOD 01/26/2025 9:20 PM [facility] Calcium 9.1 8.5 - 10.5 mg/dL LAB CHEMISTRY METHOD 01/26/2025 9:20 PM [facility] Blood Venous blood specimen / Unknown Venipuncture / Unknown 01/26/2025 8:15 PM EDT 01/26/2025 8:56 PM EDT us Leeroy KNOX LAB BLOOD ORDERABLES Final Re sult [facility] [address] [place] [address], from Last 3 Months Insurance MEDICARE MEDICAID - [place] Care Teams Automobile Mechanic Helper Relationship Specialty Start Date End Date Lloyd Woods MD [address] [place] [phone] PCP - General Internal Medicine 12/23/11
--- OUTSIDE RECORDS SUMMARY | 2025-03-09 09:53 | XMS_ITS ---
Author Organization [facility] Address [address] [place] [address] Care Team Providers Care Buckler And Lacer Name Role Phone Chuck VEGA, Asma Primary Care Provider Talha Sanabria Unavailable [phone] REASON FOR VISIT SD cx 10/12 Encounters Encounter Location Date Provider Diagnosis [facility] [address] [place] [address] 10/12/2024 Talha Soto Plan Of Treatment No Information Progress Notes * DAKOTADarynDOB: [birth year] (69 yo M)Acc No.[id number]:10/12/2024 Patient:?Daryn DUNCAN :1955???Age:69 Y???Sex:Male Address:[address] [place] [address] * true * Date:? Generated for Oscari irma/Stormy/eTransmitting on:?03/09/2025 09:52 AM EDT
== END 2025-03-09 09:34 | disposition home or self-care (01) ==
LOC: HO.HMCC 09:17
PROVIDERS: PCP Internal Medicine; Visit Provider Internal Medicine
DX: M96.1 Postlaminectomy syndrome, not elsewhere classified (principal); Z72.0 Tobacco use; F11.20 Opioid dependence, uncomplicated; R52 Pain, unspecified; M62.838 Other muscle spasm

== ENCOUNTER → 2025-03-09 09:16 | Outpatient (BNVA) | payer MEDICARE, MEDICAID, SELFPAY | PROVIDERS: PCP Internal Medicine; Visit Provider Internal Medicine | DX: M96.1 Postlaminectomy syndrome, not elsewhere classified (principal); F11.20 Opioid dependence, uncomplicated; R52 Pain, unspecified; M62.838 Other muscle spasm; Z72.0 Tobacco use | CPT/HCPCS: 99212 ==

== ENCOUNTER 2025-03-22 15:48 | Outpatient (REF) | payer MEDICARE, MEDICAID, SELFPAY ==
--- OUTSIDE RECORDS SUMMARY | 2025-03-22 16:29 | XMS_ITS | Clinical Summary ---
Author Organization [facility] Address [address] [place] [address] Phone Care Team Providers Care Pillowcase Sewer Name Role Phone Lloyd Woods MD Primary Care Provider [phone] Allergies No known active allergies Medications No known medications Active Problems No known active problems Encounters Date Type Department Care Team Description 01/26/2025 7:59 PM EDT - 01/27/2025 1:19 AM EDT Emergency [facility] Emergency [address] [place] [address] Acute pain of left shoulder (Primary Dx); Chronic neck pain Discharge Disposition: Home or Self Care from Last 3 Months Medical History Medical History Date Comments COPD (chronic obstructive pu lmonary disease) [place] [place] [facility] [place] DX:COPD (chronic o bstructive pulmonary disease) ([facility]) GERD (gastroesophageal reflux disease) DX:GERD (gastroesophageal reflux disease) Heart burn DX:Heart burn Drug induced constipation DX:Jair g induced constipation Failed back syndrome DX:Failed b ack syndrome Muscle spasm DX:Muscle spasm Essential (primary) hypertension DX:Essential (primary) hypertension Opioid dependence ([facility] [place] 24, [facility] [place]28) DX:Opioid dependence ([facility]) Prostate cancer ([facility] [place] , [facility] Social History Tobacco Use Types Packs/Day [...] calcific bursitis of the acromioclavicular joint. Code 78517 -------- FINAL REPORT -------- Dictated By: Gordon Diaz Dictated Date: 01/27/2025 07:58 ET Assigned Physician: Gordon Diaz Reviewed and Electronically Signed By: Gordon Diaz Signed Date: 01/27/2025 08:00 ET Workstation ID: [id number] Transcribed By: Self Edit Transcribed Date: 01/27/2025 [...] of calcific bursitis of the acromioclavicularjoint. Code 23450 -------- FINAL REPORT -------- Dictated By: Gordon Diaz Dictated Date: 01/27/2025 07:58 ET Assigned Physician: Gordon Diaz Reviewed and Electronically Signed By: Gordon Diaz Signed Date: 01/27/2025 08:00 ET Workstation ID: [id number] Transcribed By: Self Edit Transcribed Date: 01/27/2025 07:58 ET Leeroy KNOX IMG XR PROCEDURES Final Resul t * (ABNORMAL) Urinalysis with reflex microscopic and culture (01/26/2025 10:40 PM EDT) [place] Urine 1.021 1.003 - 1.030 LAB URINALYSIS - AUTOMATED METHOD 01/27/2025 12:08 AM EDT [facility] pH, Urine 5.5 5.0 - 8.0 pH LAB URINALYSIS - AUTOMATED METHOD 01/27/2025 12:08 AM [facility] Leukocytes, Urine Negative Negative LAB URINALYSIS - AUTOMATED METHOD 01/27/2025 12:08 AM [facility] Nitrite, Urine Negative Negative LAB URINALYSIS - AUTOMATED METHOD 01/27/2025 12:08 AM [facility] Protein, Urine Negative <=Trace mg/dL LAB URINALYSIS - AUTOMATED METHOD 01/27/2025 12:08 AM [facility] Glucose, Urine 250(A) Negative mg/dL LAB URINALYSIS - AUTOMATED METHOD 01/27/2025 12:08 AM [facility] Ketones, Urine Negative Negative mg/dL LAB URINALYSIS - AUTOMATED METHOD 01/27/2025 12:08 AM [facility] Urobilinogen, Urine 0.2 0.2 - 1.0 mg/dL LAB URINALYSIS - AUTOMATED METHOD 01/27/2025 12:08 AM [facility] Bilirubin, Urine Negative Negative LAB URINALYSIS - AUTOMATED METHOD 01/27/2025 12:08 AM [facility] Blood, Urine Negative Negative LAB URINALYSIS - AUTOMATED METHOD 01/27/2025 12:08 AM [facility] Urine Urine specimen obtained by clean catch procedure / Unknown Non-blood Collection / Unknown 01/26/2025 10:40 PM EDT 01/26/2025 11:55 PM EDT us Leeroy KNOX LAB URINE ORDERABLES Final Re sult [facility] [address] [place] [address], * Fernando urine culture tube (01/26/2025 10:40 PM EDT) Extra Tube Hold for add-ons. 01/27/2025 1:04 AM [facility] Comment:Auto resulted. Urine Urine specimen obtained by clean catch procedure / Unknown Non-blood Collection / Unknown 01/26/2025 10:40 PM EDT 01/26/2025 11:55 PM EDT us Leeroy KNOX LAB URINE ORDERABLES Final Re sult [facility] [address] [place] [address], [place] [phone] * (ABNORMAL) Drug abuse screen 8a panel, urine (01/26/2025 10:40 PM EDT) Amphetamine Screen, Ur Negative Negative LAB CHEMISTRY METHOD 5 2:48 AM EDT [facility] Comment:Certain OTC medicati ons containing ephedrine, phenylephrine, pseudoephedrine and phenylpropanolamine can cause false positive results. Barbiturate Screen, Ur Negative Negative LAB CHEMISTRY METHOD 5 2:48 AM EDT [facility] Benzodiazepine Screen, Ur Negative Negative LAB CHEMISTRY METHOD 5 2:48 AM T [facility] Cocaine Screen, Ur Negative Negative LAB CHEMISTRY METHOD 5 2:48 AM [facility] Opiate Screen, Ur Positive(A ) Negative LAB CHEMISTRY METHOD 5 2:48 AM T [facility] Cannabinoid (THC) Screen, Ur Negative Negative LAB CHEMISTRY METHOD 5 2:48 AM T [facility] Comment:Specimens from patie nts taking pantoprazole sodium (Protonix) have been shown to produce false positive results. Oxycodone Screen, Ur Positive(A ) Negative LAB CHEMISTRY METHOD 5 2:48 AM T [facility] Fentanyl, Ur Negative Negative LAB CHEMISTRY METHOD 5 2:48 AM [facility] Urine Urine specimen obtained by clean catch procedure / Unknown Non-blood Collection / Unknown 01/26/2025 10:40 PM EDT 01/26/2025 11:55 PM EDT Narrative [facility] - 01/27/2025 2:48 AM EDT Assay [...] KNOX LAB URINE ORDERABLES Final Re sult [facility] [address] [place] [address], [place] [phone] * XR Chest 2 Views (01/26/2025 9:15 [...] Signed Date: 01/27/2025 08:24 ET Workstation ID: [id number] Transcribed By: Self Edit Transcribed Date: 01/27/2025 [...] Signed Date: 01/27/2025 08:24 ET Workstation ID: [id number] Transcribed By: Self Edit Transcribed Date: 01/27/2025 [...] panel molecular study (01/26/2025 8:30 PM EDT) [facility] Adenovirus Detection by PCR Not Detected Not Detected LAB MICROBIOLOGY METHOD 01/26/2025 9:51 PM EDT [facility] Influenza A PCR Not Detected Not Detected LAB MICROBIOLOGY METHOD 01/26/2025 9:51 PM EDT [facility] Influenza B PCR Not Detected Not Detected LAB MICROBIOLOGY METHOD 01/26/2025 9:51 PM EDT [facility] Coronavirus 229E Not Detected Not Detected LAB MICROBIOLOGY METHOD 01/26/2025 9:51 PM EDT [facility] Coronavirus HKU1 Not Detected Not Detected LAB MICROBIOLOGY METHOD 01/26/2025 9:51 PM EDT [facility] Coronavirus OC43 Not Detected Not Detected LAB MICROBIOLOGY METHOD 01/26/2025 9:51 PM EDT [facility] Coronavirus NL63 Not Detected Not Detected LAB MICROBIOLOGY METHOD 01/26/2025 9:51 PM EDT [facility] Parainfluenza Virus 1 Not Detected Not Detected LAB MICROBIOLOGY METHOD 01/26/2025 9:51 PM EDT [facility] Parainfluenza Virus 2 Not Detected Not Detected LAB MICROBIOLOGY METHOD 01/26/2025 9:51 PM EDT [facility] Parainfluenza Virus 3 Not Detected Not Detected LAB MICROBIOLOGY METHOD 01/26/2025 9:51 PM EDT [facility] Parainfluenza Virus 4 Not Detected Not Detected LAB MICROBIOLOGY METHOD 01/26/2025 9:51 PM EDT [facility] RSV PCR Not Detected Not Detected LAB MICROBIOLOGY METHOD 01/26/2025 9:51 PM EDT [facility] Human Metapneumovirus A and B Not Detected Not Detected LAB MICROBIOLOGY METHOD 01/26/2025 9:51 PM EDT [facility] Rhinovirus/Entero virus Not Detected Not Detected LAB MICROBIOLOGY METHOD 01/26/2025 9:51 PM EDT [facility] Bordetella pertussis Not Detected Not Detected LAB MICROBIOLOGY METHOD 01/26/2025 9:51 PM EDT [facility] Bordetella parapertussis Not Detected Not Detected LAB MICROBIOLOGY METHOD 01/26/2025 9:51 PM EDT [facility] Mycoplasma pneumo by PCR Not Detected Not Detected LAB MICROBIOLOGY METHOD 01/26/2025 9:51 PM EDT [facility] Chlamydia pneumoniae Not Detected Not Detected LAB MICROBIOLOGY METHOD 01/26/2025 9:51 PM EDT [facility] SARS COV-2 Not Detected Not Detected LAB MICROBIOLOGY METHOD 01/26/2025 9:51 PM EDT [facility] Swab Both anterior nares / Unknown Non-blood Collection / Unknown 01/26/2025 8:30 PM EDT 01/26/2025 8:57 PM EDT [facility] - 01/26/2025 9:51 PM EDT Testing was performed using the [employer] (TMG) Respiratory Pathogen PCR Assay. All results must [...] MICROBIOLOGY - GENERAL OR DERABLES Final Result [facility] [address] [place] [address], * ECG 12 lead (01/26/2025 8:17 PM EDT) Ventricular Rate ECG 67 BPM GEMUSE Atrial Rate 67 BPM GEMUSE P-R Interval 196 ms GEMUSE QRS Duration 96 ms GEMUSE Q-T Interval 388 ms GEMUSE QTc 409 ms GEMUSE P Wave [place] 81 degrees GEMUSE R [place] 44 degrees GEMUSE T [place] 55 degrees GEMUSE ECG Interpretation Normal sinus rhythm Normal ECG When compared with ECG of 01-JUN-2018 09:15, No significant change was found Confirmed by LOUIS RHODES ([id number]) on 01/27/2025 10:54:56 AM GEMUSE 01/26/2025 8:17 PM EDT 01/27/2025 10:54 AM EDT Leeroy KNOX ECG ORDERABLES Final Result Performing Organization Address [facility] Co de Phone Number GEMUSE * Troponin I high sensitivity (01/26/2025 8:15 PM EDT) [facility] High Sensitivity Troponin I 4 <=79 ng/L LAB CHEMISTRY METHOD 01/26/2025 9:23 PM EDT [facility] Blood Venous blood specimen / Unknown Venipuncture / Unknown 01/26/2025 8:15 PM EDT 01/26/2025 8:56 PM EDT Narrative [facility] - 01/26/2025 9:23 PM EDT High levels of biotin in samples may falsely decrease hsTroponin values. ??Use caution when interpreting hsTroponin results in patients taking biotin who exhibit renal impairment (eGFR <60) or in patients taking more than 20 mg/day of biotin. Leeroy KNOX LAB BLOOD ORDERABLES Final Re sult Performing Organization Address City/[facility]/ZIP Co de Phone Number [facility] [address] [place] [address], [place] [phone] * (ABNORMAL) CBC auto differential (01/26/2025 8:15 PM EDT) [facility] WBC 10.2 4.8 - 10.8 K/[facility] LAB HEMETOLOGY METHOD 01/26/2025 9:04 PM EDT [facility] RBC 3.80(L) 4.50 - 5.50 M/mcL LAB HEMETOLOGY METHOD [facility]2025 [facility] Hemoglobin 12.3(L) 13.5 - 17.5 g/dL LAB HEMETOLOGY METHOD 01/26/2025 9:04 [facility] Hematocrit 35.7(L) 42.0 - 54.0 % LAB HEMETOLOGY METHOD 01/26/2025 9:04 PM [facility] MCV 94.7 79.0 - 98.0 FL LAB HEMETOLOGY METHOD 01/26/2025 9:04 PM [facility] MCH 32.6(H) 27.0 - 32.0 pcg LAB HEMETOLOGY METHOD 01/26/2025 9:04 PM [facility] MCHC 34.5 32.0 - 37.0 g/dL LAB HEMETOLOGY METHOD 01/26/2025 9:04 PM [facility] RDW 12.5 11.0 - 15.0 % LAB HEMETOLOGY METHOD 01/26/2025 9:04 PM [facility] Platelets 320 130 - 400 K/mcL LAB HEMETOLOGY METHOD 01/26/2025 9:04 PM [facility] MPV 9.3 7.0 - 11.0 FL LAB HEMETOLOGY METHOD 01/26/2025 9:04 PM [facility] NRBC 0.0 <1.0 % LAB HEMETOLOGY METHOD 01/26/2025 9:04 PM [facility] NRBC Absolute 0.00 <0.10 K/mcL LAB HEMETOLOGY METHOD 01/26/2025 9:04 PM [facility] Neutrophils Relative 70.3 % LAB HEMETOLOGY METHOD 01/26/2025 9:04 PM [facility] Lymphocytes Relative 17.5 % LAB HEMETOLOGY METHOD 01/26/2025 9:04 PM EDT [facility] Monocytes Relative 8.3 % LAB HEMETOLOGY METHOD 01/26/2025 9:04 PM EDT [facility] Eosinophils Relative 3.2 % LAB HEMETOLOGY METHOD 01/26/2025 9:04 PM [facility] Basophils Relative 0.4 % LAB HEMETOLOGY METHOD 01/26/2025 9:[facility] Immature Granulocytes Relative 0.3 % LAB HEMETOLOGY METHOD 01/26/2025 9:04 [facility] Neutrophils Absolute 7.17(H) 1.50 - 7.00 K/mcL LAB HEMETOLOGY METHOD 01/26/2025 9:04 PM [facility] Lymphocytes Absolute 1.79 1.00 - 5.00 K/mcL LAB HEMETOLOGY METHOD 01/26/2025 9:04 PM [facility] Monocytes Absolute 0.85 0.20 - 1.00 K/mcL LAB HEMETOLOGY METHOD 01/26/2025 9:04 PM [facility] Eosinophils Absolute 0.33 0.00 - 0.50 K/mcL LAB HEMETOLOGY METHOD 01/26/2025 9:04 PM [facility] Basophils Absolute 0.04 0.00 - 0.20 K/mcL LAB HEMETOLOGY METHOD 01/26/2025 9:04 PM T [facility] Immature Granulocytes Absolute 0.03 0.00 - 0.03 K/mcL LAB HEMETOLOGY METHOD 01/26/2025 9:04 PM [facility] Blood Venous blood specimen / Unknown Venipuncture / Unknown 01/26/2025 8:15 PM EDT 01/26/2025 8:56 PM EDT us Leeroy KNOX LAB BLOOD ORDERABLES Final Re sult [facility] [address] [place] [address], * (ABNORMAL) Basic metabolic panel (01/26/2025 8:15 PM EDT) Sodium 137 133 - 145 mmol/L LAB CHEMISTRY METHOD 01/26/2025 9:20 PM EDT [facility] Potassium 4.7 3.5 - 5.5 mmol/L LAB CHEMISTRY METHOD 01/26/2025 9:20 PM [facility] Chloride 106 96 - 110 mmol/L LAB CHEMISTRY METHOD 01/26/2025 9:20 PM [facility] CO2 25 21 - 32 mmol/L LAB CHEMISTRY METHOD 01/26/2025 9:20 PM [facility] Anion Gap 6 3 - 11 LAB CHEMISTRY METHOD 01/26/2025 9:20 PM [facility] Glucose 153(H) 70 - 100 mg/dL LAB CHEMISTRY METHOD 01/26/2025 9:20 PM [facility] BUN 25 5 - 25 mg/dL LAB CHEMISTRY METHOD 01/26/2025 9:20 PM [facility] Creatinine 1.01 0.70 - 1.30 mg/dL LAB CHEMISTRY METHOD 01/26/2025 9:[facility] eGFR 82 >=60 mL/min/1. 73m2 LAB CHEMISTRY METHOD 01/26/2025 9:20 PM [facility] Comment:Calculation based on the??Chronic Kidney Disease Epidemiology Collaboration (CKD-EPI) equation refit??without adjustment for race. BUN/Creatinine Ratio 24.8 LAB CHEMISTRY METHOD 01/26/2025 9:20 PM [facility] Calcium 9.1 8.5 - 10.5 mg/dL LAB CHEMISTRY METHOD 01/26/2025 9:20 PM [facility] Blood Venous blood specimen / Unknown Venipuncture / Unknown 01/26/2025 8:15 PM EDT 01/26/2025 8:56 PM EDT us Leeroy KNOX LAB BLOOD ORDERABLES Final Re sult [facility] ([facility]) [facility] [address] [place] [address], from Last 3 Months Insurance MEDICARE MEDICAID - [place] Care Teams Pillowcase Sewer Relationship Specialty Start Date End Date Lloyd Woods MD [address] [place] [phone] PCP - General Internal Medicine 12/23/11
--- OUTSIDE RECORDS SUMMARY | 2025-03-22 16:29 | XMS_ITS ---
Author Organization [facility] Address [address] [place] [address] Care Team Providers Care Cabinet Professional Name Role Phone Chuck VEGA, Asma Primary Care Provider Talha Sanabria Unavailable [phone] REASON FOR VISIT SD cx 10/12 Encounters Encounter Location Date Provider Diagnosis [facility] [address] [place] [address] 10/12/2024 Talha Soto Plan Of Treatment No Information Progress Notes * DAKOTADarynDOB: [birth year] (69 yo M)Acc No.[id number]:10/12/2024 Patient:?Daryn DUNCAN :1955???Age:69 Y???Sex:Male Address:[address] [place] [address] * true * Date:? Generated for Oscari irma/Stormy/eTransmitting on:?03/22/2025 04:28 PM EDT
--- OUTSIDE RECORDS SUMMARY | 2025-03-22 16:29 | XMS_ITS | Patient Health Record ---
Author Organization [facility] Address [address] [place] [address] Care Team Providers Care Residential Door Installer Name Role Phone Chuck VEGA, [facility] Primary Care Provider Talha Sanabria Unavailable [phone] Allergies No Known Allergies Reason For Referral No Information Medications Medication SIG (Take, Route, Fr equency, Duration) Notes Start Date End Date Status Montelukast Sodium A ctive amLODIPine Besylate Active Lisinopril Active Finasteride Active Omeprazole Active Gabapentin Active oxyCODONE HCl Active Anoro Ellipta Active Ciclopirox 0.77 % 1 application Md Physician Dermatologist ally Twice a day for 365 days [...] Problem Status W/U Status Risk Notes Problem [id number] 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 [place] [address] [place] [address] 10/12/2024 Talha Soto Assessments Encounter Date Diagnosis [...] Insured Coverage Start Date Coverage End Date [facility] [employer] Claims [address] [place] [phone] [id number] Daryn Duncan Self - patient is the insured Medical (General) History Medical History History ICD Code Arthritis asthma Back,Hip,and Knee pain Cancer Hypertension Stomach ulcer Measles Chicken pox Joint implants/screws Surgical History Surgery Date(Month/Year) neck surgery Lower back surgery shoulder surgery
--- OUTSIDE RECORDS SUMMARY | 2025-03-22 16:29 | XMS_ITS ---
Author Organization [facility] Address [address] [place] [address] Care Team Providers Care Section Maintainer Name Role Phone Chuck VEGA, Lloyd Primary Care Provider Talha Sanabria Unavailable [phone] Medications Medication SIG (Take, Route, Fr equency, Duration) Notes Start Date End Date Status Montelukast Sodium A ctive amLODIPine Besylate Active Anoro Ellipta Active Ciclopirox 0.77 % 1 application Tip Length Checker ally Twice a day for 365 days Active Vitamin D3 Active Lisinopril Active Finasteride Active Omeprazole Active Gabapentin Active oxyCODONE HCl Active Encounters Encounter Location Date Provider Diagnosis [address] [address] 09/21/2024 Talha Soto Plan Of Treatment No Information Progress Notes * Daryn DUNCANDOB: [birth year] (69 yo M)Acc No.[id number]:09/21/2024 Progress Note Patient:?Daryn DUNCAN Provider:?Talha Soto DPM :1955???Age:69 Y???Sex:Male Dylan e:09/21/2024 Address[address] [id number] Pcp:Lloyd Woods MD Subjective: * Chief Complaints: [...] Provider:?Talha Soto DPM Date:?2023 Generated for Tiara solis/Stromy/Tiffanie on:?03/22/2025 04:28 PM EDT
--- OUTSIDE RECORDS SUMMARY | 2025-03-22 16:29 | XMS_ITS ---
Author Organization [facility] Address [address] [place] [address] Care Team Providers Care Sub Assembly Team Worker Name Role Phone Chuck VEGA, Lloyd Primary Care Provider Talha Sanabria Unavailable [phone] Encounters Encounter Location Date Provider Diagnosis [address] [address] 10/12/2024 Talha Soto Plan Of Treatment No Information Progress Notes * Daryn DUNCANDOB: [birth year] (69 yo M)Acc No.[id number]:10/12/2024 Progress Note Patient:?Daryn DUNCAN Provider:?Talha Soto DPM :1955???Age:69 Y???Sex:Male Dylan e:10/12/2024 [address] [place] Pcp:Lloyd Woods MD Subjective: * Chief Complaints: [...] Soto DPM Date:?2023 Generated for Printi ng/Faxing/eTransmitting on:?03/22/2025 04:28 PM EDT
== END 2025-03-22 15:49 | disposition home or self-care (01) ==
LOC: HO.CT 15:48
PROVIDERS: PCP Internal Medicine; Visit Provider Internal Medicine Pulmonary Disease
DX: Z13.89 Encounter for screening for other disorder (principal)

== ENCOUNTER 2025-04-08 08:13 | Outpatient (AMB) | payer MEDICARE, MEDICAID, SELFPAY ==
--- OUTSIDE RECORDS SUMMARY | 2025-04-08 08:15 | XMS_ITS | Clinical Summary ---
Author Organization [facility] Address [address] [place] [address] Phone Care Team Providers Care It Technician Name Role Phone Lloyd Woods MD Primary Care Provider [phone] Allergies No known active allergies Medications No known medications Active Problems No known active problems Encounters Date Type Department Care Team Description 01/26/2025 7:59 PM EDT - 01/27/2025 1:19 AM EDT Emergency [facility] Emergency [address] [place] [address] Acute pain of left shoulder (Primary Dx); Chronic neck pain Discharge Disposition: Home or Self Care from Last 3 Months Medical History Medical History Date Comments COPD (chronic obstructive pu lmonary disease) ([facility], [facility]) DX:COPD (chronic o bstructive pulmonary disease) ([facility]) GERD (gastroesophageal reflux disease) DX:GERD (gastroesophageal reflux disease) Heart burn DX:Heart burn Drug induced constipation DX:Jair g induced constipation Failed back syndrome DX:Failed b ack syndrome Muscle spasm DX:Muscle spasm Essential (primary) hypertension DX:Essential (primary) hypertension Opioid dependence ([facility] V 24, [facility] V28) DX:Opioid dependence ([facility]) Prostate cancer ([facility] , [facility]) Social History Tobacco Use Types Packs/Day [...] calcific bursitis of the acromioclavicular joint. Code 99600 -------- FINAL REPORT -------- Dictated By: Gordon Diaz Dictated Date: 01/27/2025 07:58 ET Assigned Physician: Gordon Diaz Reviewed and Electronically Signed By: Gordon Diaz Signed Date: 01/27/2025 08:00 ET Workstation ID: [id number] Transcribed By: Self Edit Transcribed Date: 01/27/2025 [...] indicative of calcific bursitis. Procedure Note Gordon Daiz MD - 01/27/2025 HISTORY: The patient is [...] of calcific bursitis of the acromioclavicularjoint. Code 27837 -------- FINAL REPORT -------- Dictated By: Gordon Diaz Dictated Date: 01/27/2025 07:58 ET Assigned Physician: Gordon Diaz Reviewed and Electronically Signed By: Gordon Diaz Signed Date: 01/27/2025 08:00 ET Workstation ID: [id number] Transcribed By: Self Edit Transcribed Date: 01/27/2025 07:58 ET Leeroy KNOX IMG XR PROCEDURES Final Resul t * (ABNORMAL) Urinalysis with reflex microscopic and culture (01/26/2025 10:40 PM EDT) Specific [place] Urine 1.021 1.003 - 1.030 LAB URINALYSIS - AUTOMATED METHOD 01/27/2025 12:08 AM EDT [facility] pH, Urine 5.5 5.0 - 8.0 pH LAB URINALYSIS - AUTOMATED METHOD 01/27/2025 12:08 AM [facility] Leukocytes, Urine Negative Negative LAB URINALYSIS - AUTOMATED METHOD 01/27/2025 12:08 AM [facility] Nitrite, Urine Negative Negative LAB URINALYSIS - AUTOMATED METHOD 01/27/2025 12:08 AM [facility] Protein, Urine Negative <=Trace mg/dL LAB URINALYSIS - AUTOMATED METHOD 01/27/2025 12:08 AM [facility] Glucose, Urine 250(A) Negative mg/dL LAB URINALYSIS - AUTOMATED METHOD 01/27/2025 12:08 AM [facility] Ketones, Urine Negative Negative mg/dL LAB URINALYSIS - AUTOMATED METHOD 01/27/2025 12:08 AM [facility] Urobilinogen, Urine 0.2 0.2 - 1.0 mg/dL LAB URINALYSIS - AUTOMATED METHOD 01/27/2025 12:08 AM [facility] Bilirubin, Urine Negative Negative LAB URINALYSIS - AUTOMATED METHOD 01/27/2025 12:08 AM [facility] Blood, Urine Negative Negative LAB URINALYSIS - AUTOMATED METHOD 01/27/2025 12:08 AM [facility] Urine Urine specimen obtained by clean catch procedure / Unknown Non-blood Collection / Unknown 01/26/2025 10:40 PM EDT 01/26/2025 11:55 PM EDT us Leeroy KNOX LAB URINE ORDERABLES Final Re sult [facility] [address] [place] [address], * Fernando urine culture tube (01/26/2025 10:40 PM EDT) Extra Tube Hold for add-ons. 01/27/2025 1:04 AM [facility] Comment:Auto resulted. Urine Urine specimen obtained by clean catch procedure / Unknown Non-blood Collection / Unknown 01/26/2025 10:40 PM EDT 01/26/2025 11:55 PM EDT us Leeroy KNOX LAB URINE ORDERABLES Final Re sult [facility] [address] [place] [address], [place] [phone] * (ABNORMAL) Drug abuse screen 8a panel, urine (01/26/2025 10:40 PM EDT) Amphetamine Screen, Ur Negative Negative LAB CHEMISTRY METHOD 5 2:48 AM EDT [facility] Comment:Certain OTC medicati ons containing ephedrine, phenylephrine, pseudoephedrine and phenylpropanolamine can cause false positive results. Barbiturate Screen, Ur Negative Negative LAB CHEMISTRY METHOD 5 2:48 AM EDT [facility] Benzodiazepine Screen, Ur Negative Negative LAB CHEMISTRY METHOD 5 2:48 AM T [facility] Cocaine Screen, Ur Negative Negative LAB CHEMISTRY METHOD 5 2:48 AM [facility] Opiate Screen, Ur Positive(A ) Negative LAB CHEMISTRY METHOD 5 2:48 AM T [facility] Cannabinoid (THC) Screen, Ur Negative Negative LAB CHEMISTRY METHOD 5 2:48 AM T [facility] Comment:Specimens from patie nts taking pantoprazole sodium (Protonix) have been shown to produce false positive results. Oxycodone Screen, Ur Positive(A ) Negative LAB CHEMISTRY METHOD 5 2:48 AM T [facility] Fentanyl, Ur Negative Negative LAB CHEMISTRY METHOD 5 2:48 AM [facility] Urine Urine specimen obtained by clean catch procedure / Unknown Non-blood Collection / Unknown 01/26/2025 10:40 PM EDT 01/26/2025 11:55 PM EDT Narrative [facility] - 01/27/2025 2:48 AM EDT [...] KNOX LAB URINE ORDERABLES Final Re sult [facility] [address] [place] [address], [place] [phone] * XR Chest 2 Views (01/26/2025 9:15 [...] Signed Date: 01/27/2025 08:24 ET Workstation ID: [id number] Transcribed By: Self Edit Transcribed Date: 01/27/2025 [...] Signed Date: 01/27/2025 08:24 ET Workstation ID: [id number] Transcribed By: Self Edit Transcribed Date: 01/27/2025 [...] panel molecular study (01/26/2025 8:30 PM EDT) [facility] Adenovirus Detection by PCR Not Detected Not Detected LAB MICROBIOLOGY METHOD 01/26/2025 9:51 PM EDT [facility] Influenza A PCR Not Detected Not Detected LAB MICROBIOLOGY METHOD 01/26/2025 9:51 PM EDT [facility] Influenza B PCR Not Detected Not Detected LAB MICROBIOLOGY METHOD 01/26/2025 9:51 PM EDT [facility] Coronavirus 229E Not Detected Not Detected LAB MICROBIOLOGY METHOD 01/26/2025 9:51 PM EDT [facility] Coronavirus HKU1 Not Detected Not Detected LAB MICROBIOLOGY METHOD 01/26/2025 9:51 PM EDT [facility] Coronavirus OC43 Not Detected Not Detected LAB MICROBIOLOGY METHOD 01/26/2025 9:51 PM EDT [facility] Coronavirus NL63 Not Detected Not Detected LAB MICROBIOLOGY METHOD 01/26/2025 9:51 PM EDT [facility] Parainfluenza Virus 1 Not Detected Not Detected LAB MICROBIOLOGY METHOD 01/26/2025 9:51 PM EDT [facility] Parainfluenza Virus 2 Not Detected Not Detected LAB MICROBIOLOGY METHOD 01/26/2025 9:51 PM EDT [facility] Parainfluenza Virus 3 Not Detected Not Detected LAB MICROBIOLOGY METHOD 01/26/2025 9:51 PM EDT [facility] Parainfluenza Virus 4 Not Detected Not Detected LAB MICROBIOLOGY METHOD 01/26/2025 9:51 PM EDT [facility] RSV PCR Not Detected Not Detected LAB MICROBIOLOGY METHOD 01/26/2025 9:51 PM EDT [facility] Human Metapneumovirus A and B Not Detected Not Detected LAB MICROBIOLOGY METHOD 01/26/2025 9:51 PM EDT [facility] Rhinovirus/Entero virus Not Detected Not Detected LAB MICROBIOLOGY METHOD 01/26/2025 9:51 PM EDT [facility] Bordetella pertussis Not Detected Not Detected LAB MICROBIOLOGY METHOD 01/26/2025 9:51 PM EDT [facility] Bordetella parapertussis Not Detected Not Detected LAB MICROBIOLOGY METHOD 01/26/2025 9:51 PM EDT [facility] Mycoplasma pneumo by PCR Not Detected Not Detected LAB MICROBIOLOGY METHOD 01/26/2025 9:51 PM EDT [facility] Chlamydia pneumoniae Not Detected Not Detected LAB MICROBIOLOGY METHOD 01/26/2025 9:51 PM EDT [facility] SARS COV-2 Not Detected Not Detected LAB MICROBIOLOGY METHOD 01/26/2025 9:51 PM EDT [facility] Swab Both anterior nares / Unknown Non-blood Collection / Unknown 01/26/2025 8:30 PM EDT 01/26/2025 8:57 PM EDT [facility] - 01/26/2025 9:51 PM EDT Testing was performed using the [employer] Respiratory Pathogen PCR Assay. All results must [...] MICROBIOLOGY - GENERAL OR DERABLES Final Result [facility] [address] [place] [address], * ECG 12 lead (01/26/2025 8:17 PM EDT) Ventricular Rate ECG 67 BPM GEMUSE Atrial Rate 67 BPM GEMUSE P-R Interval 196 ms GEMUSE QRS Duration 96 ms GEMUSE Q-T Interval 388 ms GEMUSE QTc 409 ms GEMUSE P Wave [place] 81 degrees GEMUSE R [place] 44 degrees GEMUSE T [place] 55 degrees GEMUSE ECG Interpretation Normal sinus rhythm Normal ECG When compared with ECG of 01-JUN-2018 09:15, No significant change was found Confirmed by LOUIS RHODES ([id number]) on 01/27/2025 10:54:56 AM GEMUSE 01/26/2025 8:17 PM EDT 01/27/2025 10:54 AM EDT Leeroy KNOX ECG ORDERABLES Final Result Performing Organization Address [facility] [[email or web address]] Co de Phone Number GEMUSE * Troponin I high sensitivity (01/26/2025 8:15 PM EDT) [facility] High Sensitivity Troponin I 4 <=79 ng/L LAB CHEMISTRY METHOD 01/26/2025 9:23 PM EDT [facility] Blood Venous blood specimen / Unknown Venipuncture / Unknown 01/26/2025 8:15 PM EDT 01/26/2025 8:56 PM EDT Narrative [facility] - 01/26/2025 9:23 PM EDT High levels of biotin in samples may falsely decrease hsTroponin values. ??Use caution when interpreting hsTroponin results in patients taking biotin who exhibit renal impairment (eGFR <60) or in patients taking more than 20 mg/day of biotin. Leeroy KNOX LAB BLOOD ORDERABLES Final Re sult Performing Organization Address City/[facility]/ZIP Co de Phone Number [facility] [address] [place] [address], [place] [phone] * (ABNORMAL) CBC auto differential (01/26/2025 8:15 PM EDT) [facility] WBC 10.2 4.8 - 10.8 K/[facility] LAB HEMETOLOGY METHOD 01/26/2025 9:04 PM EDT [facility] RBC 3.80(L) 4.50 - 5.50 M/mcL LAB [facility]EMETOLOGY [facility] Hemoglobin 12.3(L) 13.5 - 17.5 g/dL LAB HEMETOLOGY METHOD 01/26/2025 9:[facility] Hematocrit 35.7(L) 42.0 - 54.0 % LAB HEMETOLOGY METHOD 01/26/2025 9:04 PM [facility] MCV 94.7 79.0 - 98.0 FL LAB HEMETOLOGY METHOD 01/26/2025 9:04 PM [facility] MCH 32.6(H) 27.0 - 32.0 pcg LAB HEMETOLOGY METHOD 01/26/2025 9:04 PM [facility] MCHC 34.5 32.0 - 37.0 g/dL LAB HEMETOLOGY METHOD 01/26/2025 9:04 PM [facility] RDW 12.5 11.0 - 15.0 % LAB HEMETOLOGY METHOD 01/26/2025 9:04 PM [facility] Platelets 320 130 - 400 K/mcL LAB HEMETOLOGY METHOD 01/26/2025 9:04 PM [facility] MPV 9.3 7.0 - 11.0 FL LAB HEMETOLOGY METHOD 01/26/2025 9:04 PM [facility] NRBC 0.0 <1.0 % LAB HEMETOLOGY METHOD 01/26/2025 9:04 PM [facility] NRBC Absolute 0.00 <0.10 K/mcL LAB HEMETOLOGY METHOD 01/26/2025 9:04 PM [facility] Neutrophils Relative 70.3 % LAB HEMETOLOGY METHOD 01/26/2025 9:04 PM [facility] Lymphocytes Relative 17.5 % LAB HEMETOLOGY METHOD 01/26/2025 9:04 PM EDT [facility] Monocytes Relative 8.3 % LAB HEMETOLOGY METHOD 01/26/2025 9:04 PM EDT [facility] Eosinophils Relative 3.2 % LAB HEMETOLOGY METHOD 01/26/2025 9:04 PM [facility] Basophils Relative 0.4 % LAB HEMETOLOGY METHOD 01/26/2025 9:[facility] Immature Granulocytes Relative 0.3 % LAB HEMETOLOGY METHOD [facility]/26[facility]2025 9:[facility] Neutrophils Absolute 7.17(H) 1.50 - 7.00 K/mcL LAB HEMETOLOGY METHOD 01/26/2025 9:04 PM [facility] Lymphocytes Absolute 1.79 1.00 - 5.00 K/mcL LAB HEMETOLOGY METHOD 01/26/2025 9:04 PM [facility] Monocytes Absolute 0.85 0.20 - 1.00 K/mcL LAB HEMETOLOGY METHOD 01/26/2025 9:04 PM [facility] Eosinophils Absolute 0.33 0.00 - 0.50 K/mcL LAB HEMETOLOGY METHOD 01/26/2025 9:04 PM [facility] Basophils Absolute 0.04 0.00 - 0.20 K/mcL LAB HEMETOLOGY METHOD 01/26/2025 9:04 PM T [facility] Immature Granulocytes Absolute 0.03 0.00 - 0.03 K/mcL LAB HEMETOLOGY METHOD 01/26/2025 9:04 PM [facility] Blood Venous blood specimen / Unknown Venipuncture / Unknown 01/26/2025 8:15 PM EDT 01/26/2025 8:56 PM EDT us Leeroy KNOX LAB BLOOD ORDERABLES Final Re sult [facility] [address] [place] [address], * (ABNORMAL) Basic metabolic panel (01/26/2025 8:15 PM EDT) Sodium 137 133 - 145 mmol/L LAB CHEMISTRY METHOD 01/26/2025 9:20 PM EDT [facility] Potassium 4.7 3.5 - 5.5 mmol/L LAB CHEMISTRY METHOD 01/26/2025 9:20 PM [facility] Chloride 106 96 - 110 mmol/L LAB CHEMISTRY METHOD 01/26/2025 9:20 PM [facility] CO2 25 21 - 32 mmol/L LAB CHEMISTRY METHOD 01/26/2025 9:20 PM [facility] Anion Gap 6 3 - 11 LAB CHEMISTRY METHOD 01/26/2025 9:20 PM [facility] Glucose 153(H) 70 - 100 mg/dL LAB CHEMISTRY METHOD 01/26/2025 9:20 PM [facility] BUN 25 5 - 25 mg/dL LAB CHEMISTRY METHOD 01/26/2025 9:20 PM [facility] Creatinine 1.01 0.70 - 1.30 mg/dL LAB CHEMISTRY [facility]25 9[facility] eGFR 82 >=60 mL/min/1. 73m2 LAB CHEMISTRY METHOD 01/26/2025 9:20 PM [facility] Comment:Calculation based on the??Chronic Kidney Disease Epidemiology Collaboration (CKD-EPI) equation refit??without adjustment for race. BUN/Creatinine Ratio 24.8 LAB CHEMISTRY METHOD 01/26/2025 9:20 PM [facility] Calcium 9.1 8.5 - 10.5 mg/dL LAB CHEMISTRY METHOD 01/26/2025 9:20 PM [facility] Blood Venous blood specimen / Unknown Venipuncture / Unknown 01/26/2025 8:15 PM EDT 01/26/2025 8:56 PM EDT us Leeroy KNOX LAB BLOOD ORDERABLES Final Re sult [facility] ([facility] [address] [place] [address], from Last 3 Months Insurance MEDICARE MEDICAID - [place] Care Teams It Technician Relationship Specialty Start Date End Date Lloyd Woods MD [address] [place] [phone] PCP - General Internal Medicine 12/23/11
--- NOTE | 2025-04-08 09:51 | A.OFFPC_ITS ---
Intake Visit Reasons: med visit Allergies No Known Allergies Allergy (Verified 02/11/25 14:28) Medication List - Last Reconciled 04/08/25 by Lloyd Woods MD albuterol sulfate 90 mcg/actuation 2 puffs inhalation Q4-6H PRN amlodipine 10 mg PO DAILY 90 days Anoro Ellipta 62.5-25 mcg/actuation (umeclidinium-vilanterol) 1 inh inhalation DAILY NS cholecalciferol (vitamin D3) 25 mcg PO DAILY 90 days cyclobenzaprine 5 mg PO BEDTIME PRN 30 days fluticasone furoate 27.5 mcg/actuation (Flonase Sensimist) 1 spray intranasal DAILY 30 days gabapentin 300 mg PO BID ipratropium-albuterol 0.5 mg-3 mg(2.5 mg base)/3 mL 3 mL inhalation Q6-8H PRN 30 days leuprolide acetate (6 month) (Eligard) 45 mg subcut [id number] lisinopril 40 mg PO DAILY 90 days montelukast 10 mg PO DAILY 90 days omeprazole 20 mg PO DAILY oxycodone 10 mg PO TID 30 days sucralfate (Carafate) 10 mL PO Q6H 10 days Tobacco use date assessed: 02/04/25 Dental Screening Dental Screen Date: 01/07/25 HPI med visit HPI Details History - The patient is a 69-year-old male pres enting with a request for medication refill and concerns about a chronic cough and possible rabies exposure. - The patient reports a worsening chroni c cough, which began after switching cigarette brands to Bernadine. The cough is persistent and particularly bothersome at night. - Patient experiences constant runny nos e and had an initial sore throat, which has since resolved. - The cough was previously thought to be ?smoker?s cough? but has worsened possibly due to a change in cigarette blend. - The patient has attempted to quit smok ing without success and has discussed alternatives such as vaping with another physician. - The phlegm produced is described as ye llow in color, having improved from previously being green and yellow. - The patient stopped taking cetirizine due to insurance issues, potentially worsening his allergy-related symptoms. - The patient had an incident where he m ight have been exposed to rabies after rescuing a bird from a matthews and inadvertently coming into contact with saliva. Problem List - Chronic Cough likely due to Smoking - Runny Nose likely due to Allergic Rhin itis - Concern of Possible Rabies Exposure - Narcotic medication refill needed Patient Instructions - Consider quitting smoking or reducing cigarette consumption to improve chronic cough symptoms. - Resume cetirizine for allergy relief a s it may be covered by patient's current insurance plan. - Proceed to the emergency room promptly to receive rabies immunoglobulin and necessary vaccinations for potential rabies exposure. - Follow up with medical appointments as previously scheduled. Review of Systems - General: No fever no chills - Neurological: No headaches no dizziness - Ear nose throat: No sore throat no hearing difficulty no ear pain - Cardiovascular: No syncope, no chest pain, no palpitations - Gastrointestinal: No nausea vomiting or diarrhea [facility] Medical History (Updated 04/08/25 @ 11:57 by Lloyd Woods MD) Arthritis Back pain Hx of radiation therapy HTN (hypertension) Colitis Colon cancer screening Nocturia Heartburn Muscle spasms of neck Pain management Opioid dependence Hypertension, essential GERD (gastroesophageal reflux disease) Smokers' cough Drug induced constipation COPD (chronic obstructive pulmonary disease) Tobacco abuse Asthma Failed back syndrome Surgical History H/O colonoscopy (~06/04/24) History of colonoscopy (04/10/10) History of rotator cuff surgery History of repair of laceration History of fusion of cervical spine History of laminectomy Family History Father HTN (hypertension) Lung cancer Mother HTN (hypertension) Dementia Breast cancer Maternal Grandmother No problems noted. Maternal Grandfather No problems noted. Paternal Grandfather No problems noted. Paternal Grandmother No problems noted. Brother Throat cancer Lung cancer Brother No problems noted. Daughter No problems noted. Daughter No problems noted. Sister Ovarian cancer Sister No problems noted. Sister No problems noted. Sister No problems noted. Maternal Aunt Breast cancer Social History Household Members: Family Housing: House Are you a primary healthcare market consultant to a significant other at home: No Do you presently have visiting nurse or other home services: No Alcohol intake: current Alcohol intake frequency: holidays/special occasions only Patient Tobacco Use Status: Current everyday Tobacco user Tobacco use type: Cigarette Cigarette Packs Per Day: 1.0 Cigarettes Per Day: 20.0 e-Cigarette/Vaping Use: Never Used service: No Current occupational status: disabled Cognitive needs: No Hearing needs: No Vision needs: Yes Questionnaire Thrive Questionnaire Date Thrive assessed: 01/07/25 VIVIANA-7 AMB Questionnaire VIVIANA-7 Date VIVIANA - 7 assessed: 01/07/25 Source: Developed by Drs. Juan Motley, Blanca Manzo, Kelton Mooney and colleagues, with an educational homa from [facility] [facility]. Physical exam (Primary Care) Tobacco/Smoking Status: Tobacco use Status Tobacco use date assessed 02/04/25 04/08/25 09:51 Patient Tobacco Use Status Current everyday Tobacco 04/08/25 09:51 Tobacco use type Cigarette 04/08/25 09:51 e-Cigarette/Vaping Use Never Used 04/08/25 09:51 Thrive Assessment: Date of Thrive Assessment Date Thrive assessed 01/07/25 04/08/25 09:51 Telehealth Telehealth Telehealth Platform: Vendor Registry Location of provider rendering services: practice address Location of patient: address on file Patient Identification confirmed using: Name, : Yes Telehealth method: video Patient verbally consented to treatment: Yes Patient verbally consented to billing insurance company: Yes Patient informed of any privacy concerns related to visit: Yes Minutes spent on Phone/Video with Pt.: 30 Coding Level of Care Code Tele Est Pt Level 4 (80774) Diagnoses Rabies exposure Z20.3 Mixed simple and mucopurulent chronic bronchitis J41.8 COPD type: chronic bronchitis Chronic bronchitis type: mixed simple and mucopurulent Failed back syndrome M96.1 Tobacco abuse Z72.0 Smokers' cough J41.0 Uncomplicated opioid dependence F11.20 Substance use status: uncomplicated Pain management R52 Muscle spasms of neck M62.838 Environmental allergies Z91.09 Assessment & Plan Assessment & Plan (1) Rabies exposure: Code(s): Z20.3 - Contact with and (suspected) exposure to rabies Category: Medical (2) COPD (chronic obstructive pulmonary disease): Code(s): J44.9 - Chronic obstructive pulmonary disease, unspecified Category: Medical Qualifiers: COPD type: chronic bronchitis Chronic bronchitis type: mixed simple and mucopurulent Qualified Code(s): J41.8 - Mixed simple and mucopurulent chronic bronchitis (3) Failed back syndrome: Code(s): M96.1 - Postlaminectomy syndrome, not elsewhere classified Category: Medical (4) Tobacco abuse: Code(s): Z72.0 - Tobacco use Category: Medical (5) Smokers' cough: Code(s): J41.0 - Simple chronic bronchitis Category: Medical (6) Opioid dependence: Comment: CONTROLLED NATURE OF MEDICATION WAS DISCUSSED, IT IS IMPORTANT TO NOTIFY ME OF CHANGE OF PHARMACY, OR IF TRAVELING. DO NOT SHARE THE MEDICATION WITH ANYBODY, KEEP IT SAFE AWAY FROM THE HANDS OF SMALL CHILDREN, AND ONLY TAKE IT PRESCRIBED. THIS MEDICATION HAVE A TENDENCY TO BE ABUSED, HABIT-FORMING, AND IT CAN CAUSE SEVERE CONSTIPATION ALONG WITH OTHER ALLERGIC REACTIONS. LONG-TERM USE OF NARCOTIC MEDICATIONS HAVE SHOWN TO INCREASE SENSITIVITY TO PAIN. Code(s): F11.20 - Opioid dependence, uncomplicated Category: Medical Qualifiers: Substance use status: uncomplicated Qualified Code(s): F11.20 - Opioid dependence, uncomplicated (7) Pain management: Code(s): R52 - Pain, unspecified Category: Medical (8) Muscle spasms of neck: Code(s): M62.838 - Other muscle spasm Category: Medical (9) Environmental allergies: Code(s): Z91.09 - Other allergy status, other than to drugs and biological substances Category: Medical Plan History - The patient is a 69-year-old male presenting with a request for medication refill and concerns about a chronic cough and possible rabies exposure. - The patient reports a worsening chronic cough, which began after switching cigarette brands to White. The cough is persistent and particularly bothersome at night. - Patient experiences constant runny nose and had an initial sore throat, which has since resolved. - The cough was previously thought to be ?smoker?s cough? but has worsened possibly due to a change in cigarette blend. - The patient has attempted to quit smoking without success and has discussed alternatives such as vaping with another physician. - The phlegm produced is described as yellow in color, having improved from previously being green and yellow. - The patient stopped taking cetirizine due to insurance issues, potentially worsening his allergy-related symptoms. - The patient had an incident where he might have been exposed to rabies after rescuing a bird from a mat[place] and inadvertently coming into contact with saliva. Problem List - Chronic Cough likely due to Smoking - Runny Nose likely due to Allergic Rhinitis - Concern of Possible Rabies Exposure - Narcotic medication refill needed Patient Instructions - Consider quitting smoking or reducing cigarette consumption to improve chronic cough symptoms. - Resume cetirizine for allergy relief as it may be covered by patient's current insurance plan. - Proceed to the emergency room promptly to receive rabies immunoglobulin and necessary vaccinations for potential rabies exposure. - Follow up with medical appointments as previously scheduled. Medications: New cetirizine (Zyrtec) 10 mg PO DAILY PRN 90 caps 0RF allergy symptoms Refilled cyclobenzaprine 5 mg PO BEDTIME 30 days PRN 30 tabs 0RF muscle spasm M62.838 - Other muscle spasm, R52 - Pain, unspecified oxycodone partial refill allowed 10 mg PO TID 30 days 90 tabs 0RF pain F11.20 - Opioid dependence, uncomplicated, M96.1 - Postlaminectomy syndrome, not elsew here classified, R52 - Pain, unspecified gabapentin 300 mg PO BID 60 caps 0RF
== END 2025-04-08 09:54 | disposition home or self-care (01) ==
LOC: HO.HMCC 08:13
PROVIDERS: PCP Internal Medicine; Visit Provider Internal Medicine
DX: J41.0 Simple chronic bronchitis (principal); J41.8 Mixed simple and mucopurulent chronic bronchitis; F11.20 Opioid dependence, uncomplicated; Z20.3 Contact with and (suspected) exposure to rabies; M96.1 Postlaminectomy syndrome, not elsewhere classified; Z72.0 Tobacco use; R52 Pain, unspecified; M62.838 Other muscle spasm; Z91.09 Other allergy status, other than to drugs and biological substances

== ENCOUNTER → 2025-04-08 08:13 | Outpatient (BNVA) | payer MEDICARE, MEDICAID, SELFPAY | PROVIDERS: PCP Internal Medicine; Visit Provider Internal Medicine ==

== ENCOUNTER 2025-04-08 13:41 | Emergency (ER) | payer MEDICARE, MEDICAID, SELFPAY ==
[2025-04-08 13:58] VITALS: BP 139/79; PULSE 61; RESP 18; TEMP 36.3; O2SAT 95; BMI 24.2
--- NOTE | 2025-04-08 14:05 | ED_ITS ---
HPI - General Adult General Chief complaint: General Medical Stated complaint: ? Exposed to Rabies Time Seen by Provider: 04/08/25 14:16 Source: patient Mode of arrival: ambulatory Limitations: no limitations History of Present Illness ED Provider: Troy Waggoner HPI narrative: 69-year-old male with history of bronchitis COPD, diverticulosis presents to ED for rabies exposure. Patient was sent by primary care for rabies vaccine. Patient states last night he was smoking and drinking and he heard noise in the [place] you went into the bushes saw a Avery eating bird. So patient try to save the bird Avery ran by the patient. Patient grabbed the bird and the blood and Avery saliva got in his mouth. Patient denies being actually being bitten. Patient uptodate with tetanus Related Data Home Medications ?Medication ?Instructions ?Recorded ?Confirmed leuprolide acetate (6 month) 45 mg 45 mg subcut [id number] 09/09/23 04/08/25 (6 month) subcutaneous syringe (EliExplorrad) Previous Rx's ?Medication ?Instructions ?Recorded ipratropium 0.5 mg-albuterol 3 mg 3 ml inhalation Q6-8H PRN wheezing 02/12/22 (2.5 mg base)/3 mL nebulization 30 days #180 mL soln cholecalciferol (vitamin D3) 25 25 mcg PO DAILY 90 days #90 caps 03/03/24 mcg (1,000 unit) capsule fluticasone furoate 27.5 1 spray intranasal DAILY 30 days 07/07/24 mcg/actuation nasal #9.1 mL spray,suspension (Flonase Sensimist) sucralfate 100 mg/mL oral 10 ml PO Q6H Acid Reflux 10 days 10/06/24 suspension (Carafate) #400 mL Anoro Ellipta 62.5 mcg-25 1 inh inhalation DAILY #180 ea 12/10/24 mcg/actuation powder for inhalation (umeclidinium-vilanterol) albuterol sulfate 90 mcg/actuation 2 puff inhalation Q4-6H PRN 12/16/24 aerosol inhaler shortness of breath or wheezing #1 ea amlodipine 10 mg tablet 10 mg PO DAILY 90 days #90 tabs 01/17/25 lisinopril 40 mg tablet 40 mg PO DAILY 90 days #90 tabs 01/17/25 omeprazole 20 mg capsule,delayed 20 mg PO DAILY #90 caps 03/28/25 release montelukast 10 mg tablet 10 mg PO DAILY 90 days #90 tabs 04/05/25 cetirizine 10 mg capsule (Zyrtec) 10 mg PO DAILY PRN allergy 04/08/25 symptoms #90 caps cyclobenzaprine 5 mg tablet 5 mg PO BEDTIME PRN muscle spasm 04/08/25 30 days #30 tabs gabapentin 300 mg capsule 300 mg PO BID #60 caps 04/08/25 oxycodone 10 mg tablet 10 mg PO TID pain 30 days #90 tabs 04/08/25 Allergies Allergy/AdvReac Type Severity Reaction Status Date / Time No Known Allergies Allergy Verified 04/08/25 14:02 Review of Systems Review of Systems: Exposure to rabies from Avery and burred Yes all other systems are reviewed and are negative [facility] Past Medical History Medical History (Updated 04/08/25 @ 15:33 by ABILIO Martinez) Arthritis Back pain Hx of radiation therapy HTN (hypertension) Colitis Colon cancer screening Nocturia Heartburn Muscle spasms of neck Pain management Opioid dependence Hypertension, essential GERD (gastroesophageal reflux disease) Smokers' cough Drug induced constipation COPD (chronic obstructive pulmonary disease) Tobacco abuse Asthma Failed back syndrome Surgical History H/O colonoscopy (~06/04/24) History of colonoscopy (04/10/10) History of rotator cuff surgery History of repair of laceration History of fusion of cervical spine History of laminectomy Family History Family History Father HTN (hypertension) Lung cancer Mother HTN (hypertension) Dementia Breast cancer Maternal Grandmother No problems noted. Maternal Grandfather No problems noted. Paternal Grandfather No problems noted. Paternal Grandmother No problems noted. Brother Throat cancer Lung cancer Brother No problems noted. Daughter No problems noted. Daughter No problems noted. Sister Ovarian cancer Sister No problems noted. Sister No problems noted. Sister No problems noted. Maternal Aunt Breast cancer Social History Social History Household Members: Family Housing: House Are you a primary director day care center to a significant other at home: No Do you presently have visiting nurse or other home services: No Alcohol intake: current Alcohol intake frequency: holidays/special occasions only Patient Tobacco Use Status: Current everyday Tobacco user Tobacco use type: Cigarette Cigarette Packs Per Day: 1.0 Cigarettes Per Day: 20.0 e-Cigarette/Vaping Use: Never Used service: No Current occupational status: disabled Cognitive needs: No Hearing needs: No Vision needs: Yes Physical Exam ED Vital Signs: Vital Signs - 24 hr 04/08/25 13:58 04/08/25 15:41 Temperature 97.3 F 97.3 F Pulse Rate 61 61 Respiratory Rate 18 18 Blood Pressure 139/79 139/79 Pulse Oximetry 95 95 Oxygen Delivery Method Room Air Room Air BMI result Body Mass Index 24.2 Const General: cooperative, healthy appearing, comfortable, no acute distress, well developed, alert, awake and Physically active Orientation/consciousness: patient oriented x3 HENMT Head: Yes normal to inspection, Yes No palpable skull fracture present, Yes normocephalic and Yes atraumatic Ears: hearing grossly normal bilaterally, external ears normal, TM's normal bilaterally, TM normal on the right, TM normal on the left, EAC's normal, mastoids normal and no periauricular adenopathy General nose exam: Normal external nose present, Normal nares present and No nasal polyps present Face and sinus: Yes normal facial exam, Yes sinuses nontender and Yes face symmetric Throat: Yes posterior oropharynx normal, Yes tonsils normal and Yes uvula midline Eyes General: appearance normal, both eyes and all related structures Neck Neck: Yes normal visual inspection, Yes full ROM, Yes no lymphadenopathy, Yes no meningeal signs, Yes trachea midline, Yes supple, No anterior neck swelling and No tender Chest Chest palpation & inspection: normal inspection of the chest and normal palp ation of entire chest wall Resp Effort & Inspection: normal respiratory effort and able to speak in complete sentences Auscultation: clear to auscultation bilaterally Cardio Jugular venous distension: no JVD Heart sounds: S1 normal heart sound present and S2 normal heart sound present GI Inspection: Yes normal to inspection Palpation (GI): Soft to palpation, not firm, nontender, no guarding and not rigid General: Yes no CVA tenderness Back/Spine/Pelvis Back: no CVA tenderness and No back tenderness Skin General skin exam: no rashes or lesions noted, elasticity normal and turgor normal Neuro General: patient oriented x3, gait normal, tone normal, moves all extremities, no meningeal signs, no focal motor deficits, CN's II-XI intact bilaterally and normal sensation to monofilament Cranial nerves: Yes CN's II-XII intact bilaterally Extrem General: Yes normal to inspection, Yes full ROM and Yes capillary refill normal Psych Appearance: grossly normal, well kempt and not disheveled Course Course Course Narrative: RME; 69-year-old male presents to ED for rabies exposure. Patient states he was walking her nose in the bushes he looked and checked it out which led to a avery running at him with blood and saliva with a bird in his mouth. Patient grabbed the bird and the saliva of the avery and bird got on his lips. patient was sent by PCP to the ED for rabies. Medications Administered Discontinued Medications Generic Name Dose Route Start Last Admin Trade Name Freq PRN Reason Stop Dose Admin Rabies Immune Globulin 1,574 unit 04/08/25 14:06 04/08/25 14:59 Rabies Immune Globulin/Pf 900 Unit/3 Ml Vial 20 unit/kg (1574 unit) 04/08/25 14:07 1,574 unit IM Administration ONCE ONE Rabies Vaccine 1 ml 04/08/25 14:06 04/08/25 14:59 Rabies Vaccine (Pcec)/Pf 1 Ml Vial IM 04/08/25 14:07 1 ml .ONCE ONE Administration Medical Decision Making Medical Decision Making [facility] Narrative: 69-year-old male presents to ED for exposure to bird Avery saliva and blood the gout in his mouth last night while in the bushes. Patient denies being bitten. Patient given rabies shots. Patient is up-to-date with tetanus. Patient is scheduled for infusion appointment for 3 more rabies vaccine in immunoglobulin injections. Patient explained worrisome signs and informed to return to the ED immediately. No need for antibiotics. Patient was not bitten just expose to saliva. Not suspecting any life threatening eitologies, cellulittis, osteomylitits, lymphangitits, or any other concerning diseases. Differential Diagnosis Differential Diagnoses: The differential diagnosis associated with the presentation includes (Rabies shots) Admission/Observation Consideration of admission/observation: Escalation of care including admission/observation considered Independent Historian Clinical information obtained from an independent historian. History obtained from or confirmed by: Other (Patient is) Discharge Plan Discharge Clinical Impression: Exposure to rabies Patient Disposition: Home, Self-Care Instructions: Rabies Immune Globulin (By injection) Additional Instructions: You should get a call from the Infusion Center to schedule an appointment to receive the remainder of your required Rabies Vaccines. You will need a total of 3 more injections. If for some reason you do not receive a call from the infusion center - please call them at [phone]. Follow up with your primary care provider after completion of the vaccine to have a titer drawn to ensure the vaccines effectiveness. Return to the ED immediately for any fever, chills, redness, swelling, or any other concerning symptoms. Prescriptions: No Action sucralfate [Carafate] 100 mg/mL suspension 10 ml PO Q6H 10 Days Qty: 400 0RF albuterol sulfate 90 mcg/actuation HFA aerosol inhaler 2 puff inhalation Q4-6H PRN (Reason: shortness of breath or wheezing) Qty: 1 6RF lisinopril 40 mg tablet 40 mg PO DAILY 90 Days Qty: 90 3RF amlodipine 10 mg tablet 10 mg PO DAILY 90 Days Qty: 90 0RF omeprazole 20 mg capsule,delayed release(DR/EC) 20 mg PO DAILY Qty: 90 0RF montelukast 10 mg tablet 10 mg PO DAILY 90 Days Qty: 90 0RF cholecalciferol (vitamin D3) 25 mcg (1,000 unit) capsule 25 mcg PO DAILY 90 Days Qty: 90 1RF Flonase Sensimist 27.5 mcg/actuation spray,suspension 1 spray intranasal DAILY 30 Days Qty: 9.1 0RF Rx Instructions: into each nostril ipratropium-albuterol 0.5 mg-3 mg(2.5 mg base)/3 mL solution for nebulization 3 ml inhalation Q6-8H PRN (Reason: wheezing) 30 Days Qty: 180 6RF Eligard (6 month) 45 mg syringe 45 mg subcut [id number] Anoro Ellipta 62.5-25 mcg/actuation blister with device 1 inh inhalation DAILY Qty: 180 2RF oxycodone 10 mg tablet 10 mg PO TID 30 Days Qty: 90 0RF Rx Instructions: partial refill allowed gabapentin 300 mg capsule 300 mg PO BID Qty: 60 0RF cyclobenzaprine 5 mg tablet 5 mg PO BEDTIME PRN (Reason: muscle spasm) 30 Days Qty: 30 0RF Zyrtec 10 mg capsule 10 mg PO DAILY PRN (Reason: allergy symptoms) Qty: 90 0RF Referrals: Lloyd Woods MD [Primary Care Provider] - (rabies exposure) Stand Alone Forms: Work/School Release Interventions: ED Discharge Assessment Last Done: 04/08/25 15:41 Discharge Date/Time: 04/08/25 15:41 Print Language: Lao
[2025-04-08] MEDS: Rabies Immune Globulin/PF 900 UNIT/3 ML VIAL 1574 UNIT IM (14:59)
[2025-04-08] MEDS: Rabies Vaccine (PCEC)/PF 1 ML VIAL IM (14:59)
[2025-04-08 15:41] VITALS: BP 139/79; PULSE 61; RESP 18; TEMP 36.3; O2SAT 95
== END 2025-04-08 15:41 | disposition home or self-care (01) ==
PROVIDERS: Emergency Provider Emergency Medicine; PCP Internal Medicine
DX: Z20.3 Contact with and (suspected) exposure to rabies (principal); Z23 Encounter for immunization
CPT/HCPCS: 90375; 90471; 90675; 96372; 99282; 99284

== ENCOUNTER 2025-04-25 07:30 | Outpatient (RCR) | payer MEDICARE, MEDICAID, SELFPAY ==
[2025-04-11 07:53] VITALS: BP 126/77; PULSE 73; RESP 66; TEMP 36.4; O2SAT 94
[2025-04-11] MEDS: Rabies Vaccine (PCEC)/PF 1 ML VIAL IM (07:56)
[2025-04-18 14:41] VITALS: BP 139/65; PULSE 66; RESP 16; TEMP 36.7; O2SAT 98
[2025-04-18] MEDS: Rabies Vaccine (PCEC)/PF 1 ML VIAL IM (14:45)
[2025-04-25 07:32] VITALS: BP 109/65; PULSE 60; RESP 16; TEMP 36.6; O2SAT 97
[2025-04-25] MEDS: Rabies Vaccine (PCEC)/PF 1 ML VIAL IM (07:34)
== END 2025-04-25 07:39 | disposition home or self-care (01) ==
LOC: HO.INF 07:30
PROVIDERS: PCP Internal Medicine; Visit Provider Physician Assistant
DX: Z20.3 Contact with and (suspected) exposure to rabies (principal)
CPT/HCPCS: 90471; 90675

== ENCOUNTER 2025-05-06 08:12 | Outpatient (AMB) | payer MEDICARE, MEDICAID, SELFPAY ==
--- OUTSIDE RECORDS SUMMARY | 2025-05-06 08:17 | XMS_ITS | Clinical Summary ---
Author Organization [facility] Address [address] [place] [phone] Phone Care Team Providers Care Ground Crewman Mission Support Name Role Phone Lloyd Woods MD Primary Care Provider [phone] Allergies No known active allergies Medications No known medications Active Problems No known active problems Medical History Medical History Date Comments COPD (chronic obstructive pu lmonary disease) ([facility] V24, [facility] V28) DX:COPD (chronic o bstructive pulmonary disease) ([facility]) GERD (gastroesophageal reflux disease) DX:GERD (gastroesophageal reflux disease) Heart burn DX:Heart burn Drug induced constipation DX:Jair g induced constipation Failed back syndrome DX:Failed b ack syndrome Muscle spasm DX:Muscle spasm Essential (primary) hypertension DX:Essential (primary) hypertension Opioid dependence ([facility] V 24, [facility] V28) DX:Opioid dependence ([facility]) Prostate cancer ([facility] V24 , [facility] V28) Social History Tobacco Use Types Packs/Day [...] 70 01/27/2025 1:00 AM EDT Temperature 36.7 C (98.1 F) 01/27/2025 1:00 AM EDT Respiratory Rate 18 01/27/2025 1:00 AM EDT [...] Procedure Name Priority Date/Time Associated Diagnosis Comments BASIC METABOLIC PANEL STAT 01/26/2025 8:15 PM EDT from Last 3 Months or Most Recently Relevant to Health Maintenance Results * (ABNORMAL) Basic metabolic panel (01/26/2025 8:15 PM EDT) Sodium 137 133 - 145 mmol/L LAB CHEMISTRY METHOD 01/26/2025 9:20 PM [facility] Potassium 4.7 3.5 - 5.5 mmol/L LAB CHEMISTRY METHOD 01/26/2025 9:20 PM [facility] Chloride 106 96 - 110 mmol/L LAB CHEMISTRY METHOD 01/26/2025 9:20 PM [facility] CO2 25 21 - 32 mmol/L LAB CHEMISTRY METHOD 01/26/2025 9:20 PM [facility] Anion Gap 6 3 - 11 LAB CHEMISTRY METHOD 01/26/2025 9:20 PM [facility] Glucose 153(H) 70 - 100 mg/dL LAB CHEMISTRY METHOD 01/26/2025 9:20 PM [facility] BUN 25 5 - 25 mg/dL LAB CHEMISTRY METHOD 01/26/2025 9:20 PM [facility] Creatinine 1.01 0.70 - 1.30 mg/dL LAB CHEMISTRY METHOD 01/26/2025 9:20 PM [facility] eGFR 82 >=60 mL/min/1. 73m2 LAB CHEMISTRY METHOD 01/26/2025 9:20 PM [facility] Comment:Calculation based on the Chronic Kidney Disease Epidemiology Collaboration (CKD-EPI) equation refit without adjustment for race. BUN/Creatinine Ratio 24.8 LAB CHEMISTRY METHOD 01/26/2025 9:20 PM EDT [facility] Calcium 9.1 8.5 - 10.5 mg/dL LAB CHEMISTRY METHOD 01/26/2025 9:20 PM EDT [facility] Blood Venous blood specimen / Unknown Venipuncture / Unknown 01/26/2025 8:15 PM EDT 01/26/2025 8:56 PM EDT us Leeroy KNOX LAB BLOOD ORDERABLES Final Re sult [facility] ([facility]) [facility] [address] [place] [address], from Last 3 Months or Most Recently Relevant to Health Maintenance Insurance MEDICARE [place]ICA[place] - [place] Care Teams Ground Crewman Mission Support Relationship Specialty Start Date End Date Lloyd Woods MD [address] [place] [id number] PCP - General Internal Medicine 12/23/11
[2025-05-06 08:19] VITALS: BP 114/70; PULSE 74; TEMP 36.3; O2SAT 98; BMI 25.1
--- NOTE | 2025-05-06 08:19 | A.OFFPC_ITS ---
Vital Signs 05/06/25 08:19 Height 5 ft 11 in Weight 180 lb 2 oz BMI 25.1 BP 114/70 Blood Pressure Location Rt brachial Position Sitting Pulse 74 Pulse Source Pulse Oximeter Temp 97.3 F Temp Source Temporal Artery Scan Pulse Oximetry (%) 98 Oxygen Delivery Method Room Air Intake Visit Reasons: 3m med visit Allergies No Known Allergies Allergy (Verified 05/06/25 08:22) Medication List - Last Reconciled 05/06/25 by Lloyd Woods MD albuterol sulfate 90 mcg/actuation 2 puffs inhalation Q4-6H PRN amlodipine 5 mg PO DAILY 90 days Anoro Ellipta 62.5-25 mcg/actuation (umeclidinium-vilanterol) 1 inh inhalation DAILY NS cetirizine (Zyrtec) 10 mg PO DAILY PRN cholecalciferol (vitamin D3) 25 mcg PO DAILY 90 days cyclobenzaprine 5 mg PO BEDTIME PRN 30 days fluticasone furoate 27.5 mcg/actuation (Flonase Sensimist) 1 spray intranasal DAILY 30 days gabapentin 300 mg PO BID ipratropium-albuterol 0.5 mg-3 mg(2.5 mg base)/3 mL 3 mL inhalation Q6-8H PRN 30 days leuprolide acetate (6 month) (Eligard) 45 mg subcut [id number] lisinopril 40 mg PO DAILY 90 days montelukast 10 mg PO DAILY 90 days omeprazole 20 mg PO DAILY oxycodone 10 mg PO TID 30 days sucralfate (Carafate) 10 mL PO Q6H 10 days Tobacco use date assessed: 05/06/25 Fall risk assessment: No Falls in past year Last assessed Fall Risk: 05/06/25 Dental Screening Dental Screen Date: 05/06/25 Did you have a dental visit in the last 12 months?: Yes Did you have a dental problem in the last 6 months where you did not have access to dental care?: No Was dental information given to patient?: Patient has dentist HPI 3m med visit HPI Details History - The patient is a 69-year-old male pres enting with dizziness and for pain management, this is an ongoing care - Dizziness and blurred vision have been occurring more frequently, with episodes of dizziness accompanied by a lack of focus and blurry vision. I see the referral was placed few months ago for him to be evaluated by Ophthalmology, however I do not have any consultation notes in the chart - The patient reports that these symptom s are not related to vertigo, as previously considered. - Blood pressure readings have been low, with a recent measurement of 109 mmHg systolic, prompting a reduction in amlodipine dosage from 10 mg to 5 mg. - The patient is also taking gabapentin, which may contribute to postural hypotension, causing dizziness when standing. - The patient is instructed to monitor b lood pressure at home and document the readings for the next visit. Problem List - Dizziness - Blurred vision - Low blood pressure - risk for Postural hypotension - failed back syndrome - narcotic dependent Patient Instructions - Reduce amlodipine dose to 5 mg daily. - Monitor blood pressure at home and rec ord the readings. - Bring the recorded blood pressure read ings to the next appointment. - continue medications as prescribed Review of Systems - General: No fever no chills - Neurological: No headaches no dizziness - Ear nose throat: No sore throat no hearing difficulty no ear pain - Cardiovascular: No syncope, no chest pain, no palpitations - Gastrointestinal: No nausea vomiting or diarrhea Physical Exam General: No acute distress HEENT: No acute findings Neck: Supple Respiratory system: Lungs are clear today Cardiovascular: S1-S2 regular in rate and rhythm Gastrointestinal: No pain Extremities: No new findings [employer]IC: Alert awake oriented x3 motor sensory intact, gait stable Skin: Normal turgor PFSH Medical History Arthritis Back pain Hx of radiation therapy HTN (hypertension) Colitis Colon cancer screening Nocturia Heartburn Muscle spasms of neck Pain management Opioid dependence Hypertension, essential GERD (gastroesophageal reflux disease) Smokers' cough Drug induced constipation COPD (chronic obstructive pulmonary disease) Tobacco abuse Asthma Failed back syndrome Surgical History H/O colonoscopy (~06/04/24) History of colonoscopy (04/10/10) History of rotator cuff surgery History of repair of laceration History of fusion of cervical spine History of laminectomy Family History Father HTN (hypertension) Lung cancer Mother HTN (hypertension) Dementia Breast cancer Maternal Grandmother No problems noted. Maternal Grandfather No problems noted. Paternal Grandfather No problems noted. Paternal Grandmother No problems noted. Brother Throat cancer Lung cancer Brother No problems noted. Daughter No problems noted. Daughter No problems noted. Sister Ovarian cancer Sister No problems noted. Sister No problems noted. Sister No problems noted. Maternal Aunt Breast cancer Social History Household Members: Family Housing: House Are you a primary summer child caregiver to a significant other at home: No Do you presently have visiting nurse or other home services: No Alcohol intake: current Alcohol intake frequency: holidays/special occasions only Patient Tobacco Use Status: Current everyday Tobacco user Tobacco use type: Cigarette Cigarette Packs Per Day: 1.0 Cigarettes Per Day: 20.0 e-Cigarette/Vaping Use: Never Used service: No Current occupational status: disabled Cognitive needs: No Hearing needs: No Vision needs: Yes Questionnaire PHQ-9 Over the last 2 weeks, how often have you been bothered by any of the following problems? 1. Little interest or pleasure in doing things: several days 2. Feeling down, depressed, or hopeless: several days 3. Trouble falling or staying asleep, or sleeping too much: several days 4. Feeling tired or having little energy: several days 5. Poor appetite or overeating: not at all 6. Feeling bad about yourself - or that you are a failure or have let yourself or your family down: not at all 7. Trouble concentrating on things, such as reading the newspaper or watching television: not at all 8. Moving or speaking so slowly that other people could have noticed. Or the opposite - being so fidgety or restless that you have been moving around a lot more than usual: not at all 9. Thoughts that you would be better off or of hurting yourself in some way: not at all Total score: 4 Depression Screening Interpretation: Negative Depression Screening Done: Yes 75260 - PHQ-9 Billing: Yes Source: Developed by Drs. Juan Motley, Blanca Manzo, Kelton Mooney and colleagues, with an educational homa from [employer]. Thrive Questionnaire Date Thrive assessed: 01/07/25 I am a: Patient What is your living situation today?: I have a steady place to live Within the past 12 months, did the food you bought not last and you didn't have the money to get more?: I choose not to answer this question Within the past 12 months, did you worry whether your food would run out before you got money to buy more?: Never true Do you have trouble paying for medicines?: No Do you have trouble getting transportation to medical appointments?: Yes Do you have trouble paying your heating and electricity bill?: No Do you have trouble taking care of your child, family member or friend?: No Do you have trouble with day-to-day activities such as bathing, preparing meals, shopping, managing finances, etc.?: No Are you currently unemployed and looking for a job?: No Are you interested in more education?: No Please select the resources that you would like help with: None Currently or been in a relationship where the following occur: I choose not to answer THRIVE Score: 1 AUDIT C Alcohol Use Questionnaire (AUDIT-C) 1. How often do you have a drink containing alcohol?: 2-4 times a month 2. How many drinks containing alcohol do you have on a typical day when you are drinking?: 1 or 2 3. How often do you have six or more drinks on one occasion?: Never Total Score: 2 VIVIANA-7 AMB Questionnaire VIVIANA-7 Date VIVIANA - 7 assessed: 01/07/25 Feeling nervous, anxious, or on edge: 0 = Not at all Not being able to stop or control worryin = Not at all Worrying too much about different things: 0 = Not at all Trouble relaxin = Several days Being so restless that it is hard to sit still: 1 = Several days Becoming easily annoyed or irritable: 1 = Several days Feeling afraid as if something awful might happen: 0 = Not at all Total VIVIANA-7 score (0-4 normal; 5-9 mild; 10-14 moderate; 15-21 severe): 3 Source: Developed by Drs. Juan Motley, Blanca Manzo, Kelton Mooney and colleagues, with an educational homa from [employer]. Physical exam (Primary Care) Vital Signs: Last Vital Signs Temp 97.3 F 05/06/25 08:19 Pulse 74 05/06/25 08:19 BP 114/70 05/06/25 08:19 Pulse Ox 98 05/06/25 08:19 Oxygen Delivery Method Room Air 05/06/25 08:19 BMI result Body Mass Index 25.1 Tobacco/Smoking Status: Tobacco use Status Tobacco use date assessed 05/06/25 05/06/25 08:23 Patient Tobacco Use Status Current everyday Tobacco 05/06/25 08:23 Tobacco use type Cigarette 05/06/25 08:23 e-Cigarette/Vaping Use Never Used 05/06/25 08:23 PHQ-9: PHQ-9 Score PHQ-9: Total score 4 05/06/25 08:23 Depression Screening Interpretation: Negative Thrive Assessment: Date of Thrive Assessment Date Thrive assessed 01/07/25 05/06/25 08:23 Currently or been in a relationship where the following occur: I choose not to answer Coding Level of Care Code Est Pt Level 3 (52720) Diagnoses Failed back syndrome M96.1 Uncomplicated opioid dependence F11.20 Substance use status: uncomplicated Pain management R52 Vertigo R42 Additional Codes PHQ-9 - 32855 - PHQ-9 Billing: Yes ([id number]) Assessment & Plan Assessment & Plan (1) Failed back syndrome: Code(s): M96.1 - Postlaminectomy syndrome, not elsewhere classified Category: Medical (2) Opioid dependence: Comment: CONTROLLED NATURE OF MEDICATION WAS DISCUSSED, IT IS IMPORTANT TO NOTIFY ME OF CHANGE OF PHARMACY, OR IF TRAVELING. DO NOT SHARE THE MEDICATION WITH ANYBODY, KEEP IT SAFE AWAY FROM THE HANDS OF SMALL CHILDREN, AND ONLY TAKE IT PRESCRIBED. THIS MEDICATION HAVE A TENDENCY TO BE ABUSED, HABIT-FORMING, AND IT CAN CAUSE SEVERE CONSTIPATION ALONG WITH OTHER ALLERGIC REACTIONS. LONG-TERM USE OF NARCOTIC MEDICATIONS HAVE SHOWN TO INCREASE SENSITIVITY TO PAIN. Code(s): F11.20 - Opioid dependence, uncomplicated Category: Medical Qualifiers: Substance use status: uncomplicated Qualified Code(s): F11.20 - Opioid dependence, uncomplicated (3) Pain management: Code(s): R52 - Pain, unspecified Category: Medical (4) Vertigo: Code(s): R42 - Dizziness and giddiness Category: Medical Plan History - The patient is a 69-year-old male presenting with dizziness and for pain man agement, this is an ongoing care - Dizziness and blurred vision have been occurring more frequently, with episodes of dizziness accompanied by a lack of focus and blurry vision. I see the referral was placed few months ago for him to be evaluated by Ophthalmology, however I do not have any consultation notes in the chart - The patient reports that these symptoms are not related to vertigo, as pre viously considered. - Blood pressure readings have been low, with a recent measurement of 109 mmHg systolic, prompting a reduction in amlodipine dosage from 10 mg to 5 mg. - The patient is also taking gabapentin, which may contribute to postural hypotension, causing dizziness when standing. - The patient is instructed to monitor blood pressure at home and document the readings for the next visit. Problem List - Dizziness - Blurred vision - Low blood pressure - risk for Postural hypotension - failed back syndrome - narcotic dependent Patient Instructions - Reduce amlodipine dose to 5 mg daily. - Monitor blood pressure at home and record the readings. - Bring the recorded blood pressure readings to the next appointment. - continue medications as prescribed Medications: Changed From amlodipine 10 mg PO DAILY 90 days 90 tabs 0RF I10 - Essential (primary) hypertension To amlodipine 5 mg PO DAILY 90 tabs 0RF 90 days I10 - Essential (primary) hypertension Refilled cetirizine (Zyrtec) 10 mg PO DAILY PRN 90 caps 0RF allergy symptoms oxycodone partial refill allowed 10 mg PO TID 90 tabs 0RF pain 30 days F11.20 - Opioid dependence, uncomplicated, M96.1 - Postlaminectomy syndrome, not elsewhere classified, R52 - Pain, unspecified
== END 2025-05-06 08:46 | disposition home or self-care (01) ==
LOC: HO.HMCC 08:13
PROVIDERS: PCP Internal Medicine; Visit Provider Internal Medicine
DX: M96.1 Postlaminectomy syndrome, not elsewhere classified (principal); F11.20 Opioid dependence, uncomplicated; R52 Pain, unspecified; R42 Dizziness and giddiness

== ENCOUNTER → 2025-05-06 08:12 | Outpatient (BNVA) | payer MEDICARE, MEDICAID, SELFPAY | PROVIDERS: PCP Internal Medicine; Visit Provider Internal Medicine | DX: M96.1 Postlaminectomy syndrome, not elsewhere classified (principal); F11.20 Opioid dependence, uncomplicated; R42 Dizziness and giddiness; F17.210 Nicotine dependence, cigarettes, uncomplicated; Z71.6 Tobacco abuse counseling | CPT/HCPCS: 96127; 99212 ==

== ENCOUNTER 2025-06-03 08:04 | Outpatient (AMB) | payer MEDICARE, MEDICAID, SELFPAY ==
--- OUTSIDE RECORDS SUMMARY | 2024-10-12 10:15 | XMS_ITS ---
Author Organization [facility] Address [address] [place] [address] Care Team Providers Care Mushroom Packer Name Role Phone Chuck VEGA, Lloyd Primary Care Provider Unavailabl Talha Bess Unavailable [phone] Encounters Encounter Location Date Provider Diagnosis [facility] [address] [place] [address] 10/12/2024 Talha Soto Plan Of Treatment No Information Progress Notes * Daryn DUNCANDOB: [birth year] (69 yo M)Acc No.[id number]:10/12/2024 Progress Note Patient: Daryn WHITEHEAD Provider: Sly Soto DPM :1955 A ge:69 Y S ex:Male Date:10/12/2024 [facility] Pcp:Lloyd Woods MD Subjective: * Chief Complaints: [...] 12/13/2023 Generated for Oscari ng/Faxing/eTransmitting on: 0 06/03/2025 08:08 AM EDT
--- OUTSIDE RECORDS SUMMARY | 2025-06-03 08:08 | XMS_ITS | Patient Health Record ---
Author Organization [facility] Address [address] [place] [address] Care Team Providers Care School Manager Name Role Phone Juan Irwin Unavailable [phone] Reason For Referral No Information Plan Of Treatment No Information
--- OUTSIDE RECORDS SUMMARY | 2025-06-03 08:08 | XMS_ITS | Clinical Summary ---
Author Organization [facility] Address [address] [place] [phone] Phone Care Team Providers Care District Ranger Name Role Phone Lloyd Woods MD Primary Care Provider [phone] Allergies No known active allergies Medications No known medications Active Problems No known active problems Medical History Medical History Date Comments COPD (chronic obstructive pu lmonary disease) ([facility] V24, [facility] V28) DX:COPD (chronic o bstructive pulmonary disease) ([facility]) GERD (gastroesophageal reflux disease) DX:GERD (gastroesophageal reflux disease) Heart burn DX:Heart burn Drug induced constipation DX:Jair g induced constipation Failed back syndrome DX:Failed b ack syndrome Muscle spasm DX:Muscle spasm Essential (primary) hypertension DX:Essential (primary) hypertension Opioid dependence ([facility] V 24, [facility] V28) DX:Opioid dependence ([facility]) Prostate cancer ([facility] V24 , [facility] V28) Social History Tobacco Use Types [...] Panel) 10/13/2022 Colorectal Cancer Screening: Colonoscopy 10/13/2022 Falls Risk Assessment 10/13/2022 Hepatitis C Screening 10/13/2022 Medicare Annual Wellness Visit 10/13/2022 Social Influencers of Health Screening 10/13/2022 COVID-19 Vaccine ( season) 2024 12/01/2021, 03/30/2021, 03/09/2021 Depression Screening 11/10/2024 Influenza Vaccine (#1) 2025 , 10/09/2021, 10/01/2019, Additional history exists Hypertension/CHF/CAD Annual BMP Blood Test 01/26/2026 01/26/2025 RSV Immunization Adult Patients (1 - 1-dose 75+ series) 2032 Hepatitis B Vaccines Completed 08/07/2017, 03/13/2017, 02/11/2017 HIB Vaccines Aged Out No longer eligi [...] mmol/L LAB CHEMISTRY METHOD 01/26/2025 9:20 PM [facility] Potassium 4.7 3.5 - 5.5 mmol/L LAB CHEMISTRY METHOD 01/26/2025 9:20 PM [facility] Chloride 106 96 - 110 mmol/L LAB CHEMISTRY METHOD 01/26/2025 9:20 PM [facility] CO2 25 21 - 32 mmol/L LAB CHEMISTRY METHOD 01/26/2025 9:20 PM [facility] Anion Gap 6 3 - 11 LAB CHEMISTRY METHOD 01/26/2025 9:20 PM [facility] Glucose 153(H) 70 - 100 mg/dL LAB CHEMISTRY METHOD 01/26/2025 9:20 PM [facility] BUN 25 5 - 25 mg/dL LAB CHEMISTRY METHOD 01/26/2025 9:20 PM [facility] Creatinine 1.01 0.70 - 1.30 mg/dL LAB CHEMISTRY METHOD 01/26/2025 9:20 PM [facility] eGFR 82 >=60 mL/min/1. 73m2 LAB CHEMISTRY METHOD 01/26/2025 9:20 PM [facility] Comment:Calculation based on the Chronic Kidney Disease Epidemiology Collaboration (CKD-EPI) equation refit without adjustment for race. BUN/Creatinine Ratio 24.8 LAB CHEMISTRY METHOD 01/26/2025 9:20 PM EDT [facility] Calcium 9.1 8.5 - 10.5 mg/dL LAB CHEMISTRY METHOD 01/26/2025 9:20 PM EDT [facility] Blood Venous blood specimen / Unknown Venipuncture / Unknown 01/26/2025 8:15 PM EDT 01/26/2025 8:56 PM EDT us Leeroy KNOX LAB BLOOD ORDERABLES Final Re sult [facility] ([facility] [[email or web address] [address] [place] [address], from Last 3 Months or Most Recently Relevant to Health Maintenance Insurance MEDICARE [place]ICAID - [place] Care Teams District Ranger Relationship Specialty Start Date End Date Lloyd Woods MD [address] [place] [phone] PCP - General Internal Medicine 12/23/11
[2025-06-03 08:11] VITALS: BP 110/70; PULSE 66; O2SAT 96; BMI 25.1
--- NOTE | 2025-06-03 08:11 | A.OFFPC_ITS ---
Vital Signs 06/03/25 08:11 Height 5 ft 11 in Weight 180 lb BMI 25.1 BP 110/70 Blood Pressure Location Lt brachial Position Sitting Pulse 66 Pulse Source Pulse Oximeter Pulse Oximetry (%) 96 Intake Visit Reasons: 1m follow up Allergies No Known Allergies Allergy (Verified 06/03/25 08:12) Medication List - Last Reconciled 06/03/25 by Lloyd Woods MD albuterol sulfate 90 mcg/actuation 2 puffs inhalation Q4-6H PRN amlodipine 5 mg PO DAILY 90 days Anoro Ellipta 62.5-25 mcg/actuation (umeclidinium-vilanterol) 1 inh inhalation DAILY NS cetirizine (Zyrtec) 10 mg PO DAILY PRN cholecalciferol (vitamin D3) 25 mcg PO DAILY 90 days cyclobenzaprine 5 mg PO BEDTIME PRN 30 days fluticasone furoate 27.5 mcg/actuation (Flonase Sensimist) 1 spray intranasal DAILY 30 days gabapentin 300 mg PO BID ipratropium-albuterol 0.5 mg-3 mg(2.5 mg base)/3 mL 3 mL inhalation Q6-8H PRN 30 days leuprolide acetate (6 month) (Eligard) 45 mg subcut [id number] lisinopril 40 mg PO DAILY 90 days montelukast 10 mg PO DAILY 90 days omeprazole 20 mg PO DAILY oxycodone 10 mg PO TID 30 days sucralfate (Carafate) 10 mL PO Q6H 10 days Tobacco use date assessed: 05/06/25 Fall risk assessment: No Falls in past year Last assessed Fall Risk: 06/03/25 Dental Screening Dental Screen Date: 05/06/25 HPI 1m follow up HPI Details History - The patient is a 69-year-old male pres enting with blurring of vision and dizziness. - The symptoms began some time ago and a re described as episodes of blurry vision and dizziness that come and go, occurring approximately six times a month. - The patient experiences these symptoms severely enough that they impact his ability to see anything, as evidenced by an episode that occurred while driving. - He reports that these symptoms affect his eyes but has been advised that the issue is likely not related to corrective eyewear needs as ophthalmologic evaluation indicated nothing wrong with his eyes. - The symptoms seem not to be influenced by specific aggravating or alleviating factors discussed. - The patient is awaiting further assess ment to explore potential neurological causes. Medical History: - Chronic Obstructive Pulmonary Disease (COPD) - Essential Hypertension - GERD - Allergies - back syndrome with history of ce rvical spine and lumbar spine surgery Surgical History: - Cervical spine surgery - Lumbar spine surgery Medications: - Amlodipine 5 mg for hypertension - Onoro Ellipta for COPD - Cetirizine for allergies - Cyclobenzaprine 5 mg for muscle relaxa tion - OxyContin 10 mg TID for pain managemen t related to back syndrome - Flonase for nasal congestion - Gabapentin 300 mg BID for pain managem ent - Lisinopril 40 mg for blood pressure co ntrol - Montelukast for allergies and COPD - Omeprazole 20 mg for GERD Social History: - Continued use of nicotine products lobo pite advice to cease - Occasional alcohol consumption - Reports having coffee as part of daily routine - No use of marijuana Problem List - Blurring of vision - Dizziness - Chronic Obstructive Pulmonary Disease (COPD) - Essential Hypertension - Allergies - GERD - Pain related to back syndrome Patient Instructions - Schedule an appointment with a neurolo gist for further evaluation of blurring vision and dizziness. - Avoid driving on highways when experie ncing blurry vision or dizziness; prefer small roads where speed is not required. - Confirm medication arrangements with galilea leyva and ensure medications are ready when due. - Cease smoking as it adversely affects health. - Continue current medications as prescr ibed. - Monitor for any worsening of symptoms and seek care if necessary. Review of Systems - General: No fever no chills - Neurological: No headaches no dizziness - Ear nose throat: No sore throat no hearing difficulty no ear pain - Cardiovascular: No syncope, no chest pain, no palpitations - Gastrointestinal: No nausea vomiting or diarrhea Physical Exam General: No acute distress HEENT: No acute findings Eyes: KENDALL, EOMI, no photophobia, peripheral vision intact Neck: Supple Respiratory system: Wheezing present bilateral today, no acute respiratory distress Cardiovascular: S1-S2 regular in rate and rhythm Gastrointestinal: No pain Extremities: No new findings 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: Alert awake oriented x3 motor sensory intact Skin: Normal turgor PFSH Medical History Arthritis Back pain Hx of radiation therapy HTN (hypertension) Colitis Colon cancer screening Nocturia Heartburn Muscle spasms of neck Pain management Opioid dependence Hypertension, essential GERD (gastroesophageal reflux disease) Smokers' cough Drug induced constipation COPD (chronic obstructive pulmonary disease) Tobacco abuse Asthma Failed back syndrome Surgical History H/O colonoscopy (~06/04/24) History of colonoscopy (04/10/10) History of rotator cuff surgery History of repair of laceration History of fusion of cervical spine History of laminectomy Family History Father HTN (hypertension) Lung cancer Mother HTN (hypertension) Dementia Breast cancer Maternal Grandmother No problems noted. Maternal Grandfather No problems noted. Paternal Grandfather No problems noted. Paternal Grandmother No problems noted. Brother Throat cancer Lung cancer Brother No problems noted. Daughter No problems noted. Daughter No problems noted. Sister Ovarian cancer Sister No problems noted. Sister No problems noted. Sister No problems noted. Maternal Aunt Breast cancer Social History Household Members: Family Housing: House Are you a primary nursing care attendant to a significant other at home: No Do you presently have visiting nurse or other home services: No Alcohol intake: current Alcohol intake frequency: holidays/special occasions only Patient Tobacco Use Status: Current everyday Tobacco user Tobacco use type: Cigarette Cigarette Packs Per Day: 1.0 Cigarettes Per Day: 20.0 e-Cigarette/Vaping Use: Never Used service: No Current occupational status: disabled Cognitive needs: No Hearing needs: No Vision needs: Yes Questionnaire Thrive Questionnaire Date Thrive assessed: 06/03/25 I am a: Patient What is your living situation today?: I have a steady place to live Within the past 12 months, did the food you bought not last and you didn't have the money to get more?: I choose not to answer this question Within the past 12 months, did you worry whether your food would run out before you got money to buy more?: Never true Do you have trouble paying for medicines?: No Do you have trouble getting transportation to medical appointments?: Yes Do you have trouble paying your heating and electricity bill?: No Do you have trouble taking care of your child, family member or friend?: No Do you have trouble with day-to-day activities such as bathing, preparing meals, shopping, managing finances, etc.?: No Are you currently unemployed and looking for a job?: No Are you interested in more education?: No Please select the resources that you would like help with: None Currently or been in a relationship where the following occur: I choose not to answer THRIVE Score: 1 VIVIANA-7 AMB Questionnaire VIVIANA-7 Date VIVIANA - 7 assessed: 01/07/25 Source: Developed by Drs. Juan Motley, Blanca Manzo, Kelton Mooney and colleagues, with an educational homa from [employer]. Physical exam (Primary Care) Vital Signs: Last Vital Signs Pulse 66 06/03/25 08:11 BP 110/70 06/03/25 08:11 Pulse Ox 96 06/03/25 08:11 BMI result Body Mass Index 25.1 Tobacco/Smoking Status: Tobacco use Status Tobacco use date assessed 05/06/25 06/03/25 08:16 Patient Tobacco Use Status Current everyday Tobacco 06/03/25 08:16 Tobacco use type Cigarette 06/03/25 08:16 e-Cigarette/Vaping Use Never Used 06/03/25 08:16 Thrive Assessment: Date of Thrive Assessment Date Thrive assessed 06/03/25 06/03/25 08:16 Currently or been in a relationship where the following occur: I choose not to answer Coding Level of Care Code Est Pt Level 4 (97703) Complex EM visit Add On G2211 Diagnoses Vertigo R42 Blurring of vision H53.8 Hypertension, essential I10 Failed back syndrome M96.1 Uncomplicated opioid dependence F11.20 Substance use status: uncomplicated Pain management R52 Mixed simple and mucopurulent chronic bronchitis J41.8 COPD type: chronic bronchitis Chronic bronchitis type: mixed simple and mucopurulent Tobacco abuse Z72.0 Smokers' cough J41.0 Muscle spasms of neck M62.838 Environmental allergies Z91.09 Assessment & Plan Assessment & Plan (1) Vertigo: Code(s): R42 - Dizziness and giddiness Category: Medical (2) Blurring of vision: Code(s): H53.8 - Other visual disturbances Category: Medical (3) Hypertension, essential: Code(s): I10 - Essential (primary) hypertension Category: Medical (4) Failed back syndrome: Code(s): M96.1 - Postlaminectomy syndrome, not elsewhere classified Category: Medical (5) Opioid dependence: Comment: CONTROLLED NATURE OF MEDICATION WAS DISCUSSED, IT IS IMPORTANT TO NOTIFY ME OF CHANGE OF PHARMACY, OR IF TRAVELING. DO NOT SHARE THE MEDICATION WITH ANYBODY, KEEP IT SAFE AWAY FROM THE HANDS OF SMALL CHILDREN, AND ONLY TAKE IT PRESCRIBED. THIS MEDICATION HAVE A TENDENCY TO BE ABUSED, HABIT-FORMING, AND IT CAN CAUSE SEVERE CONSTIPATION ALONG WITH OTHER ALLERGIC REACTIONS. LONG-TERM USE OF NARCOTIC MEDICATIONS HAVE SHOWN TO INCREASE SENSITIVITY TO PAIN. Code(s): F11.20 - Opioid dependence, uncomplicated Category: Medical Qualifiers: Substance use status: uncomplicated Qualified Code(s): F11.20 - Opioid dependence, uncomplicated (6) Pain management: Code(s): R52 - Pain, unspecified Category: Medical (7) COPD (chronic obstructive pulmonary disease): Code(s): J44.9 - Chronic obstructive pulmonary disease, unspecified Category: Medical Qualifiers: COPD type: chronic bronchitis Chronic bronchitis type: mixed simple and mucopurulent Qualified Code(s): J41.8 - Mixed simple and mucopurulent chronic bronchitis (8) Tobacco abuse: Code(s): Z72.0 - Tobacco use Category: Medical (9) Smokers' cough: Code(s): J41.0 - Simple chronic bronchitis Category: Medical (10) Muscle spasms of neck: Code(s): M62.838 - Other muscle spasm Category: Medical (11) Environmental allergies: Code(s): Z91.09 - Other allergy status, other than to drugs and biological substances Category: Medical Plan History - The patient is a 69-year-old male presenting with blurring of vision and dizziness. - The symptoms began some time ago and are described as episodes of blurry vision and dizziness that come and go, occurring approximately six times a month. - The patient experiences these symptoms severely enough that they impact his ability to see anything, as evidenced by an episode that occurred while driving. - He reports that these symptoms affect his eyes but has been advised that the issue is likely not related to corrective eyewear needs as ophthalmologic evaluation indicated nothing wrong with his eyes. - The symptoms seem not to be influenced by specific aggravating or alleviating factors discussed. - The patient is awaiting further assessment to explore potential neurological causes. Medical History: - Chronic Obstructive Pulmonary Disease (COPD) - Essential Hypertension - GERD - Allergies - back syndrome with history of cervical spine and lumbar spine surgery Surgical History: - Cervical spine surgery - Lumbar spine surgery Medications: - Amlodipine 5 mg for hypertension - Onoro Ellipta for COPD - Cetirizine for allergies - Cyclobenzaprine 5 mg for muscle relaxation - OxyContin 10 mg TID for pain management related to back syndrome - Flonase for nasal congestion - Gabapentin 300 mg BID for pain management - Lisinopril 40 mg for blood pressure control - Montelukast for allergies and COPD - Omeprazole 20 mg for GERD Social History: - Continued use of nicotine products despite advice to cease - Occasional alcohol consumption - Reports having coffee as part of daily routine - No use of marijuana Problem List - Blurring of vision - Dizziness - Chronic Obstructive Pulmonary Disease (COPD) - Essential Hypertension - Allergies - GERD - Pain related to back syndrome Patient Instructions - Schedule an appointment with a neurologist for further evaluation of blurring vision and dizziness. - Avoid driving on highways when experiencing blurry vision or dizziness; prefer small roads where speed is not required. - Confirm medication arrangements with pharmacy and ensure medications are ready when due. - Cease smoking as it adversely affects health. - Continue current medications as prescribed. - Monitor for any worsening of symptoms and seek care if necessary. Orders: Referrals Neurology Referral H53.8 - Other visual disturbances, R42 - Dizziness and giddiness Medications: Refilled oxycodone partial refill allowed 10 mg PO TID 90 tabs 0RF pain 30 days F11.20 - Opioid dependence, uncomplicated, M96.1 - Postlaminectomy syndrome, not elsewhere classified, R52 - Pain, unspecified gabapentin 300 mg PO BID 60 caps 0RF cyclobenzaprine 5 mg PO BEDTIME PRN 30 tabs 0RF muscle spasm 30 days M62.838 - Other muscle spasm, R52 - Pain, unspecified
== END 2025-06-03 11:42 | disposition home or self-care (01) ==
LOC: HO.HMCC 08:05
PROVIDERS: PCP Internal Medicine; Visit Provider Internal Medicine
DX: R42 Dizziness and giddiness (principal); F11.20 Opioid dependence, uncomplicated; J41.8 Mixed simple and mucopurulent chronic bronchitis; J41.0 Simple chronic bronchitis; I10 Essential (primary) hypertension; H53.8 Other visual disturbances; M96.1 Postlaminectomy syndrome, not elsewhere classified; R52 Pain, unspecified; Z72.0 Tobacco use; M62.838 Other muscle spasm; Z91.09 Other allergy status, other than to drugs and biological substances

== ENCOUNTER → 2025-06-03 08:04 | Outpatient (BNVA) | payer MEDICARE, MEDICAID, SELFPAY | PROVIDERS: PCP Internal Medicine; Visit Provider Internal Medicine | DX: R42 Dizziness and giddiness (principal); H53.8 Other visual disturbances; I10 Essential (primary) hypertension; F11.20 Opioid dependence, uncomplicated; R52 Pain, unspecified; J41.8 Mixed simple and mucopurulent chronic bronchitis; J41.0 Simple chronic bronchitis; M62.838 Other muscle spasm; Z91.09 Other allergy status, other than to drugs and biological substances; F17.200 Nicotine dependence, unspecified, uncomplicated; Z71.6 Tobacco abuse counseling | CPT/HCPCS: 99212 ==

== ENCOUNTER 2025-06-15 07:36 | Outpatient (REF) | payer MEDICARE, MEDICAID, SELFPAY ==
--- NOTE | ~2025-06-15 | CT_ITS ---
CLINICAL HISTORY: F17.210 - Nicotine dependence, cigarettes, uncomplicated CT lung cancer screening (LDCT) Comparison: CT/REG/KS/SR - CT LUNG SCREENING - 01/30/24 15:[address]/REG/KS/SR - CT CHEST WITHOUT IV CONTRAST - 01/13/23 14:14 EST Technique: Axial CT images of the chest using low-dose technique. Referring provider counseled the patient on shared decision-making for LDCT screening. Additional counseling was provided on smoking cessation. Effective radiation dose total: DLP 37.3 mGycm, CTDIvol 1.1 mGy. Findings: Lung: No evidence of pneumonia or edema. 5 mm perivascular nodule within the right lower lobe anteriorly ( image 86) is unchanged. Remaining pulmonary nodules are unchanged. No new pulmonary nodules are present. Coronary artery calcifications: Mild Limited upper abdomen: Unremarkable Other: None Impression: 1. Coronary artery disease. 2. Stable pulmonary nodules. LungRADS 2 - Benign Appearance: Continue annual screening with low dose Chest CT in 12 months. ##L2## Category 1: Normal; continue annual screening Category 2: Benign appearance or behavior, continue annual screening Category 3: Probably benign, [address] recommended Category 4A: Suspicious, [address] recommended; may consider PET/CT Category 4B: Suspicious, Additional diagnostics and/or tissue sampling recommended Category 4X: Suspicious, Additional diagnostics and/or tissue sampling recommended Category 0: Recalls (incomplete screen due to Incomplete coverage, Noise, Respiratory motion, Expiration, Obscured by acute abnormality) This document has been electronically signed by: Renetta Burleson MD on 06/15/2025 14:09:01
== END 2025-06-15 07:37 | disposition home or self-care (01) ==
LOC: HO.CT 07:36
PROVIDERS: PCP Internal Medicine; Visit Provider Internal Medicine Pulmonary Disease
DX: Z12.2 Encounter for screening for malignant neoplasm of respiratory organs (principal); F17.210 Nicotine dependence, cigarettes, uncomplicated
CPT/HCPCS: 71271

== ENCOUNTER → 2025-06-15 07:37 | Outpatient (BNV) | payer MEDICARE, MEDICAID, SELFPAY | PROVIDERS: PCP Internal Medicine; Visit Provider Radiology Diagnostic Radiology | DX: Z12.2 Encounter for screening for malignant neoplasm of respiratory organs (principal); F17.210 Nicotine dependence, cigarettes, uncomplicated; I25.10 Atherosclerotic heart disease of native coronary artery without angina pectoris; R91.8 Other nonspecific abnormal finding of lung field | CPT/HCPCS: 71271 ==

== ENCOUNTER 2025-06-23 13:52 | Outpatient (AMB) | payer MEDICARE, MEDICAID, SELFPAY ==
--- OUTSIDE RECORDS SUMMARY | 2024-10-12 10:15 | XMS_ITS ---
Author Organization [facility] Address [address] [place] [address] Care Team Providers Care Craft Worker Name Role Phone Chuck VEGA, Lloyd Primary Care Provider Unavailabl Talha Bess Unavailable [phone] Encounters Encounter Location Date Provider Diagnosis [facility] [address] [place] [address] 10/12/2024 Talha Soto Plan Of Treatment No Information Progress Notes * Daryn DUNCANDOB: [birth year] (69 yo M)Acc No.[id number]:10/12/2024 Progress Note Patient: Daryn WHITEHEAD Provider: Sly Soto DPM :1955 A ge:69 Y S ex:Male Date:10/12/2024 [facility] Pcp:Lloyd Woods MD Subjective: * Chief Complaints: [...] Soto DPM Date: 12/13/2023 Generated for Oscari ng/Faxing/eTransmitting on: 0 06/23/2025 02:44 PM EDT
--- NOTE | 2025-06-23 14:01 | A.OFFVIS_ITS ---
Vital Signs 06/23/25 14:02 Height 5 ft 11 in Weight 177 lb BMI 24.7 BP 100/64 Blood Pressure Location Rt brachial Position Sitting Pulse 83 Pulse Source Pulse Oximeter Pulse Oximetry (%) 94 Oxygen Delivery Method Room Air Intake Visit Reasons: CT scan follow up Allergies No Known Allergies Allergy (Verified 06/23/25 14:07) HPI HPI CT scan follow up: Details: 69-year-old gentleman, active 50+ pack-year smoker, now followed for emphysema and pulmonary nodules.? He continues on Anoro and albuterol MDI with reasonable control of his symptoms.? He denies any recent exacerbations. He has has baseline cough now productive of yellowish sputum. His follow-up CT chest showed stable pulmonary nodules. [facility] Medical History Arthritis Back pain Hx of radiation therapy HTN (hypertension) Colitis Colon cancer screening Nocturia Heartburn Muscle spasms of neck Pain management Opioid dependence Hypertension, essential GERD (gastroesophageal reflux disease) Smokers' cough Drug induced constipation COPD (chronic obstructive pulmonary disease) Tobacco abuse Asthma Failed back syndrome Surgical History H/O colonoscopy (~06/04/24) History of colonoscopy (04/10/10) History of rotator cuff surgery History of repair of laceration History of fusion of cervical spine History of laminectomy Family History Father HTN (hypertension) Lung cancer Mother HTN (hypertension) Dementia Breast cancer Maternal Grandmother No problems noted. Maternal Grandfather No problems noted. Paternal Grandfather No problems noted. Paternal Grandmother No problems noted. Brother Throat cancer Lung cancer Brother No problems noted. Daughter No problems noted. Daughter No problems noted. Sister Ovarian cancer Sister No problems noted. Sister No problems noted. Sister No problems noted. Maternal Aunt Breast cancer Social History Household Members: Family Housing: House Are you a primary care attendant to a significant other at home: No Do you presently have visiting nurse or other home services: No Alcohol intake: current Alcohol intake frequency: holidays/special occasions only Patient Tobacco Use Status: Current everyday Tobacco user Tobacco use type: Cigarette Cigarette Packs Per Day: 1.0 Cigarettes Per Day: 20.0 e-Cigarette/Vaping Use: Never Used service: No Current occupational status: disabled Cognitive needs: No Hearing needs: No Vision needs: Yes Review of Systems Const Denies daytime sleepiness, Denies excessive sweating, Denies fatigue, Denies fever(s), Denies lethargy, Denies malaise, Denies night sweats, Denies snoring and Denies weight loss Eyes Denies blurry vision and Denies itchy eyes ENT Denies nasal congestion, Denies post nasal drip, Denies sinus pain, Denies sinus pressure and Denies other ( Thrush) Card Denies chest pain, Denies pedal edema, Denies dyspnea, Denies orthopnea and Denies paroxysmal nocturnal dyspnea Resp Reports cough, Denies hemoptysis, Reports excessive phlegm production, Denies dyspnea, Denies snoring and Denies wheezing GI Denies abdominal pain and Denies heartburn Musc Denies myalgias, Denies arthralgias and Denies joint swelling Skin/Breast Denies rash Neuro Denies memory loss and Denies seizure-like activity Psych Denies abnormal sleep pattern, Denies anxiety and Denies memory loss Endo Denies excessive sweating, Denies fatigue and Denies heat intolerance John/Lymph Denies easy bruising Aller/Immun Denies itchy eyes, Denies seasonal rhinorrhea and Denies wheezing Physical Exam Vital Signs: Last Vital Signs Pulse 83 06/23/25 14:02 BP 100/64 06/23/25 14:02 Pulse Ox 94 06/23/25 14:02 Oxygen Delivery Method Room Air 06/23/25 14:02 BMI result Body Mass Index 24.7 Const General: no acute distress and alert Nutritional Appearance: not obese Orientation/consciousness: Other orientation findings ( oriented) HEENT Head: Yes atraumatic Eyes General: appearance normal, both eyes and all related structures Sclerae: sclerae normal EOM: EOMs intact bilaterally Neck Neck: Yes supple Lymphatic: no lymphadenopathy noted Resp Effort & Inspection: normal respiratory effort and no use of accessory muscles Auscultation: clear to auscultation bilaterally Cardio Rate: regular rate Rhythm: regular rhythm Heart sounds: no gallops, no murmurs and no rubs Skin General skin exam: other ( warm) Extrem General: No clubbing, No cyanosis and No edema Assessment & Plan Assessment & Plan (1) COPD (chronic obstructive pulmonary disease): Code(s): J44.9 - Chronic obstructive pulmonary disease, unspecified Category: Medical Qualifiers: COPD type: emphysema Emphysema type: panlobular Qualified Code(s): J43.1 - Panlobular emphysema Plan: Reasonable baseline control on Anoro, duo nebs, and albuterol MDI. Continue current regimen. Now with mild bronchitic exacerbation, will treat with a course of azithromycin. (2) Personal history of nicotine dependence: Code(s): Z87.891 - Personal history of nicotine dependence Category: Medical Plan: Results of lung cancer screening CT chest reviewed, stable pulmonary nodules. Continue with yearly lung cancer screening. Medications: New azithromycin For 250 mg dose pack: take 500 mg today (day 1), then 250 mg for 4 days (days 2-5) PO 6 tabs 0RF Coding Level of Care Code Est Pt Level 4 (67862) Diagnoses Panlobular emphysema J43.1 COPD type: emphysema Emphysema type: panlobular Personal history of nicotine dependence Z87.891
[2025-06-23 14:02] VITALS: BP 100/64; PULSE 83; O2SAT 94; BMI 24.7
--- OUTSIDE RECORDS SUMMARY | 2025-06-23 14:44 | XMS_ITS | Clinical Summary ---
Author Organization [facility] Address [address] [place] [id number] Phone Care Team Providers Care Industrial Order Clerk Name Role Phone Lloyd Woods MD Primary Care Provider [phone] Allergies No known active allergies Medications No known medications Active Problems No known active problems Medical History Medical History Date Comments COPD (chronic obstructive pu lmonary disease) ([facility]24, [facility] V28) DX:COPD (chronic o bstructive pulmonary disease) ([facility]) GERD (gastroesophageal reflux disease) DX:GERD (gastroesophageal reflux disease) Heart burn DX:Heart burn Drug induced constipation DX:Jair g induced constipation Failed back syndrome DX:Failed b ack syndrome Muscle spasm DX:Muscle spasm Essential (primary) hypertension DX:Essential (primary) hypertension Opioid dependence ([facility] V 24, [facility] V28) DX:Opioid dependence ([facility]) Prostate cancer ([facility] V24 , [facility] V28) Social History Tobacco Use Types Packs/Day [...] mmol/L LAB CHEMISTRY METHOD 01/26/2025 9:20 PM [facility] Potassium 4.7 3.5 - 5.5 mmol/L LAB CHEMISTRY METHOD 01/26/2025 9:20 PM [facility] Chloride 106 96 - 110 mmol/L LAB CHEMISTRY METHOD 01/26/2025 9:20 PM [facility] CO2 25 21 - 32 mmol/L LAB CHEMISTRY METHOD 01/26/2025 9:20 PM [facility] Anion Gap 6 3 - 11 LAB CHEMISTRY METHOD 01/26/2025 9:20 PM [facility] Glucose 153(H) 70 - 100 mg/dL LAB CHEMISTRY METHOD 01/26/2025 9:20 PM [facility] BUN 25 5 - 25 mg/dL LAB CHEMISTRY METHOD 01/26/2025 9:20 PM [facility] Creatinine 1.01 0.70 - 1.30 mg/dL LAB CHEMISTRY METHOD 01/26/2025 9:20 PM [facility] eGFR 82 >=60 mL/min/1. 73m2 LAB CHEMISTRY METHOD 01/26/2025 9:20 PM [facility] Comment:Calculation based on the Chronic Kidney Disease Epidemiology Collaboration (CKD-EPI) equation refit without adjustment for race. BUN/Creatinine Ratio 24.8 LAB CHEMISTRY METHOD 01/26/2025 9:20 PM EDT [facility] Calcium 9.1 8.5 - 10.5 mg/dL LAB CHEMISTRY METHOD 01/26/2025 9:20 PM EDT [facility] Blood Venous blood specimen / Unknown Venipuncture / Unknown 01/26/2025 8:15 PM EDT 01/26/2025 8:56 PM EDT us Leeroy [facility] LAB BLOOD ORDERABLES Final Re sult [facility] [address] [place] [address], from Last 3 Months or Most Recently Relevant to Health Maintenance Insurance MEDICARE MEDICAID - [place] Care Teams Industrial Order Clerk Relationship Specialty Start Date End Date Lloyd Woods MD [address] [place] [phone] PCP - General Internal Medicine 12/23/11
== END 2025-06-23 14:24 | disposition home or self-care (01) ==
LOC: HO.HPS 13:53
PROVIDERS: PCP Internal Medicine; Visit Provider Internal Medicine Pulmonary Disease
DX: J43.1 Panlobular emphysema (principal); Z87.891 Personal history of nicotine dependence
CPT/HCPCS: 99214

== ENCOUNTER → 2025-06-23 13:52 | Outpatient (BNVA) | payer MEDICARE, MEDICAID, SELFPAY | PROVIDERS: PCP Internal Medicine; Visit Provider Internal Medicine Pulmonary Disease | DX: J43.1 Panlobular emphysema (principal); Z87.891 Personal history of nicotine dependence | CPT/HCPCS: 99212 ==

== ENCOUNTER 2025-07-05 08:43 | Outpatient (AMB) | payer MEDICARE, MEDICAID, SELFPAY ==
--- OUTSIDE RECORDS SUMMARY | 2024-09-21 10:00 | XMS_ITS ---
Author Organization [facility] Address [address] [place] [address] Care Team Providers Care Tile Helper Name Role Phone Chuck VEGA, Lloyd Primary Care Provider Unavailabl Talha Bess Unavailable [phone] Medications Medication SIG (Take, Route, Fr equency, Duration) Notes Start Date End Date Status Montelukast Sodium A ctive amLODIPine Besylate Active Anoro Ellipta Active Ciclopirox 0.77 % 1 application Seat Covers Trimmer ally Twice a day; Duration: 365 days Active Vitamin D3 Active Lisinopril Active Finasteride Active Omeprazole Active Gabapentin Active oxyCODONE HCl Active Encounters Encounter Location Date Provider Diagnosis [address] [address] 09/21/2024 Talha Soto Plan Of Treatment No Information Progress Notes * Daryn DUNCANDOB: [birth year] (69 yo M)Acc No.[id number]:09/21/2024 Progress Note Patient: Daryn WHITEHEAD Provider: Sly Soto DPM :1955 A ge:69 Y S ex:Male Date:09/21/2024 Address[address] [id number] Pcp:Lloyd Woods MD Subjective: * Chief Complaints: [...] 11/21/2023 Generated for Tiara solis/Stormy/Tiffanie on: 0 07/05/2025 08:58 AM EDT
--- OUTSIDE RECORDS SUMMARY | 2024-10-12 10:15 | XMS_ITS ---
Author Organization [facility] Address [address] [place] [address] Care Team Providers Care Senior Revenue Accountant Name Role Phone Chuck VEGA, Lloyd Primary Care Provider Unavailabl Talha Bess Unavailable [phone] Encounters Encounter Location Date Provider Diagnosis [facility] [address] [place] [address] 10/12/2024 Talha Soto Plan Of Treatment No Information Progress Notes * Daryn DUNCANDOB: [birth year] (69 yo M)Acc No.[id number]:10/12/2024 Progress Note Patient: Daryn WHITEHEAD Provider: Sly Soto DPM :1955 A ge:69 Y S ex:Male Date:10/12/2024 [address] [facility] Pcp:Lloyd Woods MD Subjective: * Chief Complaints: * * Medical History: Objective: * Vitals: Assessment: Plan: * Treatment: * Images: * The named appointment provid er may or may not be the originator of this progress note, and it is not deemed complete until electronically signed by the appointment provider. Sign off status: Pending * Provider: Sly Soto DPM Date: 12/13/2023 Generated for Oscari ng/Fakarishmag/eTransmitting on: 0 07/05/2025 08:58 AM EDT
[2025-07-05 08:50] VITALS: BP 106/70; PULSE 80; O2SAT 97; BMI 28.2
--- NOTE | 2025-07-05 08:50 | A.OFFPC_ITS ---
Vital Signs 07/05/25 08:50 Height 5 ft 7 in Weight 180 lb BMI 28.2 BP 106/70 Blood Pressure Location Lt brachial Position Sitting Pulse 80 Pulse Source Pulse Oximeter Pulse Oximetry (%) 97 Oxygen Delivery Method Room Air Intake Visit Reasons: 1m follow up Allergies No Known Allergies Allergy (Verified 07/05/25 08:51) Medication List - Last Reconciled 07/05/25 by Lloyd Woods MD albuterol sulfate 90 mcg/actuation 2 puffs inhalation Q4-6H PRN amlodipine 5 mg PO DAILY 90 days Anoro Ellipta 62.5-25 mcg/actuation (umeclidinium-vilanterol) 1 inh inhalation DAILY NS cetirizine (Zyrtec) 10 mg PO DAILY PRN cholecalciferol (vitamin D3) 25 mcg PO DAILY 90 days cyclobenzaprine 5 mg PO BEDTIME PRN 30 days fluticasone furoate 27.5 mcg/actuation (Flonase Sensimist) 1 spray intranasal DAILY 30 days gabapentin 300 mg PO BID ipratropium-albuterol 0.5 mg-3 mg(2.5 mg base)/3 mL 3 mL inhalation Q6-8H PRN 30 days leuprolide acetate (6 month) (Eligard) 45 mg subcut [id number] lisinopril 40 mg PO DAILY 90 days montelukast 10 mg PO DAILY 90 days nebulizers (VixOne Nebulizer-Adult Mask) As directed omeprazole 20 mg PO DAILY oxycodone 10 mg PO TID 30 days sucralfate (Carafate) 10 mL PO Q6H 10 days Tobacco use date assessed: 05/06/25 Fall risk assessment: No Falls in past year Last assessed Fall Risk: 07/05/25 Dental Screening Dental Screen Date: 05/06/25 HPI 1m follow up HPI Details Chief Complaint Persistent lower extremity pain leading to inadequate sleep and significant discomfort, despite current medication regimen. History of Present Illness The patient is a 69-year-old male presenting with chronic pain. Chronic Pain: - The patient experiences persistent sabine n primarily affecting his lower extremities. - The pain has been present for a signif icant duration, negatively impacting his sleep quality. - The patient reports increased jumping and spasms in his legs, especially at night. - Previous interventions with medication s like oxycodone and fentanyl patches have been insufficient in managing the pain or were not well tolerated. - He experiences withdrawal symptoms suc h as sweating and intense leg movement when medication effects subside. - Aggravating factors include physical a ctivities such as fishing. - Current medication regimen includes ox ycodone, with discussions to optimize pain control by adjusting fentanyl patch doses. Medical History: - Chronic pain, primarily in lower extre mities. - Ulcer, mentioned in the context of pos sible contraindications for NSAIDs like ibuprofen. Medications: - Oxycodone 10 mg, three times a day for pain management. - Fentanyl patch, previously tried at 25 mcg, but patient reported ineffectiveness. Social History: - The patient enjoys fishing and engages in related activities despite physical limitations. - Implied daily routine includes sitting and avoidance of extended physical activity due to pain. - continued to smoke in spite of advised to stop multiple times Problem List - Chronic neck and back Pain - Leg Spasms - Lower Extremity Discomfort - tobacco abuse - hypertension - allergies - chronic GERD Patient Instructions - Consider taking it easy for the next w sun'aq and refrain from exacerbating activities like fishing. - Discuss the option of massage therapy following physically demanding activities to alleviate muscle tension. - Monitor for changes in pain and report any worsening symptoms or inadequate pain relief. - Await further instructions regarding p otential adjustments in medication, particularly fentanyl patch dosage. Until next visit - continue other medications - stopped smoking Review of Systems - General: No fever no chills - Neurological: No headaches no dizziness - Ear nose throat: No sore throat no hearing difficulty no ear pain - Cardiovascular: No syncope, no palpitations - Gastrointestinal: No nausea vomiting or diarrhea - Endocrine: No polyuria polydipsia no heat intolerance - Genitourinary: No dysuria , no blood in urine Physical Exam - General: No acute distress - HEENT: No acute findings - Neck: Limited range of motion seconda ry to cervicalgia chronic - Respiratory system: Able to talk in f ull sentences, no audible wheeze - Cardiovascular: S1-S2 regular in rate and rhythm - Gastrointestinal: No pain - chronic back pain all over - Extremities: No new findings - 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 awake oriented x3 motor se nsory intact - Skin: Normal turgor PFSH Medical History Arthritis Back pain Hx of radiation therapy HTN (hypertension) Colitis Colon cancer screening Nocturia Heartburn Muscle spasms of neck Pain management Opioid dependence Hypertension, essential GERD (gastroesophageal reflux disease) Smokers' cough Drug induced constipation COPD (chronic obstructive pulmonary disease) Tobacco abuse Asthma Failed back syndrome Surgical History H/O colonoscopy (~06/04/24) History of colonoscopy (04/10/10) History of rotator cuff surgery History of repair of laceration History of fusion of cervical spine History of laminectomy Family History Father HTN (hypertension) Lung cancer Mother HTN (hypertension) Dementia Breast cancer Maternal Grandmother No problems noted. Maternal Grandfather No problems noted. Paternal Grandfather No problems noted. Paternal Grandmother No problems noted. Brother Throat cancer Lung cancer Brother No problems noted. Daughter No problems noted. Daughter No problems noted. Sister Ovarian cancer Sister No problems noted. Sister No problems noted. Sister No problems noted. Maternal Aunt Breast cancer Social History Household Members: Family Housing: House Are you a primary ambulatory care nurse to a significant other at home: No Do you presently have visiting nurse or other home services: No Alcohol intake: current Alcohol intake frequency: holidays/special occasions only Patient Tobacco Use Status: Current everyday Tobacco user Tobacco use type: Cigarette Cigarette Packs Per Day: 1.0 Cigarettes Per Day: 20.0 e-Cigarette/Vaping Use: Never Used service: No Current occupational status: disabled Cognitive needs: No Hearing needs: No Vision needs: Yes Questionnaire Thrive Questionnaire Date Thrive assessed: 01/07/25 I am a: Patient What is your living situation today?: I have a steady place to live Within the past 12 months, did the food you bought not last and you didn't have the money to get more?: I choose not to answer this question Within the past 12 months, did you worry whether your food would run out before you got money to buy more?: Never true Do you have trouble paying for medicines?: No Do you have trouble getting transportation to medical appointments?: Yes Do you have trouble paying your heating and electricity bill?: No Do you have trouble taking care of your child, family member or friend?: No Do you have trouble with day-to-day activities such as bathing, preparing meals, shopping, managing finances, etc.?: No Are you currently unemployed and looking for a job?: No Are you interested in more education?: No Please select the resources that you would like help with: None Currently or been in a relationship where the following occur: I choose not to answer THRIVE Score: 1 VIVIANA-7 AMB Questionnaire VIVIANA-7 Date VIVIANA - 7 assessed: 01/07/25 Source: Developed by Drs. Juan Motley, Blanca Manzo, Kelton Mooney and colleagues, with an educational homa from [email or web address]. Physical exam (Primary Care) Vital Signs: Last Vital Signs Pulse 80 07/05/25 08:50 BP 106/70 07/05/25 08:50 Pulse Ox 97 07/05/25 08:50 Oxygen Delivery Method Room Air 07/05/25 08:50 BMI result Body Mass Index 28.2 Tobacco/Smoking Status: Tobacco use Status Tobacco use date assessed 05/06/25 07/05/25 08:52 Patient Tobacco Use Status Current everyday Tobacco 07/05/25 08:52 Tobacco use type Cigarette 07/05/25 08:52 e-Cigarette/Vaping Use Never Used 07/05/25 08:52 Thrive Assessment: Date of Thrive Assessment Date Thrive assessed 01/07/25 07/05/25 08:52 Currently or been in a relationship where the following occur: I choose not to answer Coding Level of Care Code Est Pt Level 5 (58485) Diagnoses Hypertension, essential I10 Failed back syndrome M96.1 Uncomplicated opioid dependence F11.20 Substance use status: uncomplicated Pain management R52 Mixed simple and mucopurulent chronic bronchitis J41.8 COPD type: chronic bronchitis Chronic bronchitis type: mixed simple and mucopurulent Tobacco abuse Z72.0 Smokers' cough J41.0 Muscle spasms of neck M62.838 Environmental allergies Z91.09 Gastroesophageal reflux disease without esophagitis K21.9 Esophagitis presence: without esophagitis Time Spent (min) 40 Comment Complex patient with multiple medical problems requiring treatment/close evaluation Assessment & Plan Assessment & Plan (1) Hypertension, essential: Code(s): I10 - Essential (primary) hypertension Category: Medical (2) Failed back syndrome: Code(s): M96.1 - Postlaminectomy syndrome, not elsewhere classified Category: Medical (3) Opioid dependence: Comment: CONTROLLED NATURE OF MEDICATION WAS DISCUSSED, IT IS IMPORTANT TO NOTIFY ME OF CHANGE OF PHARMACY, OR IF TRAVELING. DO NOT SHARE THE MEDICATION WITH ANYBODY, KEEP IT SAFE AWAY FROM THE HANDS OF SMALL CHILDREN, AND ONLY TAKE IT PRESCRIBED. THIS MEDICATION HAVE A TENDENCY TO BE ABUSED, HABIT-FORMING, AND IT CAN CAUSE SEVERE CONSTIPATION ALONG WITH OTHER ALLERGIC REACTIONS. LONG-TERM USE OF NARCOTIC MEDICATIONS HAVE SHOWN TO INCREASE SENSITIVITY TO PAIN. Code(s): F11.20 - Opioid dependence, uncomplicated Category: Medical Qualifiers: Substance use status: uncomplicated Qualified Code(s): F11.20 - Opioid dependence, uncomplicated (4) Pain management: Code(s): R52 - Pain, unspecified Category: Medical (5) COPD (chronic obstructive pulmonary disease): Code(s): J44.9 - Chronic obstructive pulmonary disease, unspecified Category: Medical Qualifiers: COPD type: chronic bronchitis Chronic bronchitis type: mixed simple and mucopurulent Qualified Code(s): J41.8 - Mixed simple and mucopurulent chronic bronchitis (6) Tobacco abuse: Code(s): Z72.0 - Tobacco use Category: Medical (7) Smokers' cough: Code(s): J41.0 - Simple chronic bronchitis Category: Medical (8) Muscle spasms of neck: Code(s): M62.838 - Other muscle spasm Category: Medical (9) Environmental allergies: Code(s): Z91.09 - Other allergy status, other than to drugs and biological substances Category: Medical (10) GERD (gastroesophageal reflux disease): Code(s): K21.9 - Gastro-esophageal reflux disease without esophagitis Category: Medical Qualifiers: Esophagitis presence: without esophagitis Qualified Code(s): K21.9 - Gastro-esophageal reflux disease without esophagitis Plan Chief Complaint Persistent lower extremity pain leading to inadequate sleep and significant discomfort, despite current medication regimen. History of Present Illness The patient is a 69-year-old male presenting with chronic pain. Chronic Pain: - The patient experiences persistent pain primarily affecting his lower extremities. - The pain has been present for a significant duration, negatively impacting his sleep quality. - The patient reports increased jumping and spasms in his legs, especially at night. - Previous interventions with medications like oxycodone and fentanyl patches have been insufficient in managing the pain or were not well tolerated. - He experiences withdrawal symptoms such as sweating and intense leg movement when medication effects subside. - Aggravating factors include physical activities such as fishing. - Current medication regimen includes oxycodone, with discussions to optimize pain control by adjusting fentanyl patch doses. Medical History: - Chronic pain, primarily in lower extremities. - Ulcer, mentioned in the context of possible contraindications for NSAIDs like ibuprofen. Medications: - Oxycodone 10 mg, three times a day for pain management. - Fentanyl patch, previously tried at 25 mcg, but patient reported ineffectiveness. Social History: - The patient enjoys fishing and engages in related activities despite physical limitations. - Implied daily routine includes sitting and avoidance of extended physical activity due to pain. - continued to smoke in spite of advised to stop multiple times Problem List - Chronic neck and back Pain - Leg Spasms - Lower Extremity Discomfort - tobacco abuse - hypertension - allergies - chronic GERD Patient Instructions - Consider taking it easy for the next week and refrain from exacerbating activities like fishing. - Discuss the option of massage therapy following physically demanding activities to alleviate muscle tension. - Monitor for changes in pain and report any worsening symptoms or inadequate pain relief. - Await further instructions regarding potential adjustments in medication, particularly fentanyl patch dosage. Until next visit - continue other medications - stopped smoking Medications: Refilled cyclobenzaprine 5 mg PO BEDTIME PRN 30 tabs 0RF muscle spasm 30 days M62.838 - Other muscle spasm, R52 - Pain, unspecified oxycodone partial refill allowed 10 mg PO TID 90 tabs 0RF pain 30 days F11.20 - Opioid dependence, uncomplicated, M96.1 - Postlaminectomy syndrome, not elsewhere classified, R52 - Pain, unspecified gabapentin 300 mg PO BID 60 caps 0RF
--- OUTSIDE RECORDS SUMMARY | 2025-07-05 08:58 | XMS_ITS | Clinical Summary ---
Author Organization [facility] Address [address] [place] [id number] Phone Care Team Providers Care Toddler Teacher Name Role Phone Lloyd Woods MD Primary Care Provider [phone] Allergies No known active allergies Medications No known medications Active Problems No known active problems Medical History Medical History Date Comments COPD (chronic obstructive pu lmonary disease) ([facility] V24, [facility] V28) DX:COPD (chronic o bstructive pulmonary disease) ([facility]) GERD (gastroesophageal reflux disease) DX:GERD (gastroesophageal reflux disease) Heart burn DX:Heart burn Drug induced constipation DX:Jair g induced constipation Failed back syndrome DX:Failed b ack syndrome Muscle spasm DX:Muscle spasm Essential (primary) hypertension DX:Essential (primary) hypertension Opioid dependence ([facility] V 24, [facility] V28) DX:Opioid dependence ([facility]) Prostate cancer ([facility] V24 , [facility] V28) Social History Tobacco Use Types Packs/Day [...] mmol/L LAB CHEMISTRY METHOD 01/26/2025 9:20 PM [facility] Potassium 4.7 3.5 - 5.5 mmol/L LAB CHEMISTRY METHOD 01/26/2025 9:20 PM [facility] Chloride 106 96 - 110 mmol/L LAB CHEMISTRY METHOD 01/26/2025 9:20 PM [facility] CO2 25 21 - 32 mmol/L LAB CHEMISTRY METHOD 01/26/2025 9:20 PM [facility] Anion Gap 6 3 - 11 LAB CHEMISTRY METHOD 01/26/2025 9:20 PM [facility] Glucose 153(H) 70 - 100 mg/dL LAB CHEMISTRY METHOD 01/26/2025 9:20 PM [facility] BUN 25 5 - 25 mg/dL LAB CHEMISTRY METHOD 01/26/2025 9:20 PM [facility] Creatinine 1.01 0.70 - 1.30 mg/dL LAB CHEMISTRY METHOD 01/26/2025 9:20 PM [facility] eGFR 82 >=60 mL/min/1. 73m2 LAB CHEMISTRY METHOD 01/26/2025 9:20 PM [facility] Comment:Calculation based on the Chronic Kidney Disease Epidemiology Collaboration (CKD-EPI) equation refit without adjustment for race. BUN/Creatinine Ratio 24.8 LAB CHEMISTRY METHOD 01/26/2025 9:20 PM EDT [facility] Calcium 9.1 8.5 - 10.5 mg/dL LAB CHEMISTRY METHOD 01/26/2025 9:20 PM EDT [facility] Blood Venous blood specimen / Unknown Venipuncture / Unknown 01/26/2025 8:15 PM EDT 01/26/2025 8:56 PM EDT us Leeroy [facility]NOX LAB BLOOD ORDERABLES Final Re sult [facility] [address] [place] [address], from Last 3 Months or Most Recently Relevant to Health Maintenance Insurance MEDICARE [place]ICAID - [place] Care Teams Toddler Teacher Relationship Specialty Start Date End Date Lloyd Woods MD [address] [place] [address] PCP - General Internal Medicine 12/23/11
--- OUTSIDE RECORDS SUMMARY | 2025-07-05 08:58 | XMS_ITS | Patient Health Record ---
Author Organization [facility] Address [address] [place] [address] Care Team Providers Care Hydro Plant Technician Name Role Phone Juan Irwin Unavailable [phone] Reason For Referral No Information Plan Of Treatment No Information
--- OUTSIDE RECORDS SUMMARY | 2025-07-05 08:59 | XMS_ITS | Patient Health Record ---
Author [facility] Address [address] [place] [address] Care Team Providers Care Bonding And Composite Fabricator Name Role Phone Chuck [facility]GA, [facility] Primary [facility] Provider Talha Sanabria Unavailable [phone] Allergies No Known Allergies Reason For Referral No Information Medications Medication SIG (Take, Route, Fr equency, Duration) Notes Start Date End Date Status Montelukast Sodium A ctive amLODIPine Besylate Active Lisinopril Active Finasteride Active Omeprazole Active Gabapentin Active oxyCODONE HCl Active Anoro Ellipta Active Ciclopirox 0.77 % 1 application Director Of Medical Staff Services ally Twice a day; Duration: 365 days Active Vitamin D3 Active Social [...] Problem Status W/U Status Risk Notes Problem Fungal infection of nail (B35.1) Active confirmed Rx management (4) Encounters Encounter Location Date Provider [facility] [address] [place] [address] [facility]/21[facility] [facility] [address] [facility] [address] [place] [address] 10/12/2024 Talha Soto Plan Of Treatment No Information Insurance Providers Payer Name Payer Address Payer Phone Subscriber Number Group Number Insured Name Patient Relationship to Insured Coverage Start Date Coverage End Date [facility] SCO Claims [address] [place] [phone] [id number] Daryn Duncan Self - patient is the insured Medical (General) History Medical History History ICD Code Arthritis asthma Back,Hip,and Knee pain Cancer Hypertension Stomach ulcer Measles Chicken pox Joint implants/screws Surgical History Surgery Date(Month/Year) neck surgery Lower back surgery shoulder surgery
== END 2025-07-05 10:22 | disposition home or self-care (01) ==
LOC: HO.HMCC 08:43
PROVIDERS: PCP Internal Medicine; Visit Provider Internal Medicine
DX: I10 Essential (primary) hypertension (principal); F11.20 Opioid dependence, uncomplicated; J41.8 Mixed simple and mucopurulent chronic bronchitis; J41.0 Simple chronic bronchitis; M96.1 Postlaminectomy syndrome, not elsewhere classified; R52 Pain, unspecified; Z72.0 Tobacco use; M62.838 Other muscle spasm; Z91.09 Other allergy status, other than to drugs and biological substances; K21.9 Gastro-esophageal reflux disease without esophagitis

== ENCOUNTER → 2025-07-05 08:43 | Outpatient (BNVA) | payer MEDICARE, MEDICAID, SELFPAY | PROVIDERS: PCP Internal Medicine; Visit Provider Internal Medicine | DX: I10 Essential (primary) hypertension (principal); M96.1 Postlaminectomy syndrome, not elsewhere classified; F11.20 Opioid dependence, uncomplicated; R52 Pain, unspecified; J41.8 Mixed simple and mucopurulent chronic bronchitis; J41.0 Simple chronic bronchitis; M62.838 Other muscle spasm; K21.9 Gastro-esophageal reflux disease without esophagitis; Z91.09 Other allergy status, other than to drugs and biological substances; F17.200 Nicotine dependence, unspecified, uncomplicated; Z71.6 Tobacco abuse counseling | CPT/HCPCS: 99212 ==

== ENCOUNTER 2025-08-04 14:25 | Outpatient (REF) | payer MEDICARE, MEDICAID, SELFPAY ==
--- OUTSIDE RECORDS SUMMARY | 2024-09-21 10:00 | XMS_ITS ---
Author Organization [facility] Address [address] [place] [address] Care Team Providers Care Watch Crystal Grinder Name Role Phone Chuck VEGA, Lloyd Primary Care Provider Unavailabl Talha Bess Unavailable [phone] Medications Medication SIG (Take, Route, Fr equency, Duration) Notes Start Date End Date Status Montelukast Sodium A ctive amLODIPine Besylate Active Anoro Ellipta Active Ciclopirox 0.77 % 1 application Grinding And Polishing Laborer ally Twice a day; Duration: 365 days Active Vitamin D3 Active Lisinopril Active Finasteride Active Omeprazole Active Gabapentin Active oxyCODONE HCl Active Encounters Encounter Location Date Provider Diagnosis [address] [address] 09/21/2024 Talha Soto Plan Of Treatment No Information Progress Notes * Daryn DUNCANDOB: [birth year] (70 yo M)Acc No.[id number]:09/21/2024 Progress Note Patient: Daryn WHITEHEAD Provider: Sly Soto DPM :1955 A ge:69 Y S ex:Male Date:09/21/2024 Address[address] [id number] Pcp:Lloyd Woods MD Subjective: * Chief Complaints: [...] Date: 11/21/2023 Generated for Tiara solis/Stormy/Tiffanie on: 0 08/04/2025 06:47 PM EDT
--- OUTSIDE RECORDS SUMMARY | 2024-10-12 10:15 | XMS_ITS ---
Author Organization [facility] Address [address] [place] [address] Care Team Providers Care Network Operations Project Manager Name Role Phone Chuck VEGA, Lloyd Primary Care Provider Unavailabl Talha Bess Unavailable [phone] Encounters Encounter Location Date Provider Diagnosis [facility] [address] [place] [address] 10/12/2024 Talha Soto Plan Of Treatment No Information Progress Notes * Daryn DUNCANDOB: [birth year] (70 yo M)Acc No.[id number]:10/12/2024 Progress Note Patient: Daryn WHITEHEAD Provider: Sly Soto DPM :1955 A ge:69 Y S ex:Male Date:10/12/2024 [facility] Pcp:Lloyd Woods MD Subjective: * Chief Complaints: * * Medical History: Objective: * Vitals: Assessment: Plan: * Treatment: * Images: * The named appointment provid er may or may not be the originator of this progress note, and it is not deemed complete until electronically signed by the appointment provider. Sign off status: Pending * Provider: Sly Soto DPM Date: 12/13/2023 Generated for Printi ng/Faxing/eTransmitting on: 0 08/04/2025 06:47 PM EDT
[2025-08-04 16:31] LABS: Prostate Specific Antigen 0.10 ng/mL (<0.05-4.0)
--- OUTSIDE RECORDS SUMMARY | 2025-08-04 18:47 | XMS_ITS | Patient Health Record ---
Author [facility] Address [address] [place] [address] Care Team Providers Care Bi Lead Name Role Phone [facility] Primary Care Provider Talha Sanabria Unavailable [phone] Allergies No Known Allergies Reason For Referral No Information Medications Medication SIG (Take, Route, Fr equency, Duration) Notes Start Date End Date Status Montelukast Sodium A ctive amLODIPine Besylate Active Lisinopril Active Finasteride Active Omeprazole Active Gabapentin Active oxyCODONE HCl Active Anoro Ellipta Active Ciclopirox 0.77 % 1 application Clinical Social Work Therapist ally Twice a day; Duration: 365 days [...] Risk Notes Problem Fungal infection of nail ([id number]) Fungal infection of nail (B35.1) Active confirmed Rx management (4) Encounters Encounter Location Date Provider Diagnosis [facility] [place] [address] [place] [address] 09/21/2024 [facility] [address] [place] [address] 10/12/2024 Talha Soto Plan Of Treatment No Information Insurance Providers Payer Name Payer Address Payer Phone Subscriber Number Group Number Insured Name Patient Relationship to Insured Coverage Start Date Coverage End Date [facility] SCO Claims [address] [place] [address] [phone] [id number] Daryn Duncan Self - patient is the insured Medical (General) History Medical History History ICD Code Arthritis asthma Back,Hip,and Knee pain Cancer Hypertension Stomach ulcer Measles Chicken pox Joint implants/screws Surgical History Surgery Date(Month/Year) neck surgery Lower back surgery shoulder surgery
--- OUTSIDE RECORDS SUMMARY | 2025-08-04 18:47 | XMS_ITS | Patient Health Record ---
Author Organization [facility] Address [address] [place] [address] Care Team Providers Care Home Service Technician Name Role Phone Juan Irwin Unavailable [phone] Reason For Referral No Information Plan Of Treatment No Information
== END 2025-08-04 14:26 | disposition home or self-care (01) ==
LOC: HO.HMGCLDS 14:25
PROVIDERS: PCP Internal Medicine; Visit Provider Urology
DX: Z12.5 Encounter for screening for malignant neoplasm of prostate (principal); C61 Malignant neoplasm of prostate
CPT/HCPCS: 36415; 84153; 84403

== ENCOUNTER 2025-08-09 08:54 | Outpatient (AMB) | payer MEDICARE, MEDICAID, SELFPAY ==
--- OUTSIDE RECORDS SUMMARY | 2024-09-21 10:00 | XMS_ITS ---
Author Organization [facility] Address [address] [place] [address] Care Team Providers Care Double Bass Player Name Role Phone Chuck VEGA, Lloyd Primary Care Provider Unavailabl Talha Bess Unavailable [phone] Medications Medication SIG (Take, Route, Fr equency, Duration) Notes Start Date End Date Status Montelukast Sodium A ctive amLODIPine Besylate Active Anoro Ellipta Active Ciclopirox 0.77 % 1 application Compound Filler ally Twice a day; Duration: 365 days Active Vitamin D3 Active Lisinopril Active Finasteride Active Omeprazole Active Gabapentin Active oxyCODONE HCl Active Encounters Encounter Location Date Provider Diagnosis [address] [address] 09/21/2024 Talha Soto Plan Of Treatment No Information Progress Notes * Daryn DUNCANDOB: [birth year] (70 yo M)Acc No.[id number]:09/21/2024 Progress Note Patient: Daryn WHITEHEAD Provider: Sly Soto DPM :1955 A ge:69 Y S ex:Male Date:09/21/2024 Address[address] [id number] Pcp:Lloyd Woods MD Subjective: * Chief Complaints: [...] 11/21/2023 Generated for Tiara solis/Stormy/Tiffanie on: 0 08/09/2025 09:27 AM EDT
--- OUTSIDE RECORDS SUMMARY | 2024-10-12 10:15 | XMS_ITS ---
Author Organization [facility] Address [address] [place] [address] Care Team Providers Care Canine Service Teacher Name Role Phone Chuck VEGA, Lloyd Primary Care Provider Unavailabl Talha Bess Unavailable [phone] Encounters Encounter Location Date Provider Diagnosis [facility] [address] [place] [address] 10/12/2024 Talha Soto Plan Of Treatment No Information Progress Notes * Daryn DUNCANDOB: [birth year] (70 yo M)Acc No.[id number]:10/12/2024 Progress Note Patient: Daryn WHITEHEAD Provider: Sly Soto DPM :1955 A ge:69 Y S ex:Male Date:10/12/2024 [facility] Pcp:Lloyd Woods MD Subjective: * Chief Complaints: [...] 12/13/2023 Generated for Oscari ng/Faxing/eTransmitting on: 0 08/09/2025 09:27 AM EDT
[2025-08-09 08:55] VITALS: BP 136/82; PULSE 83; O2SAT 96; BMI 28.2
--- NOTE | 2025-08-09 08:55 | A.OFFPC_ITS ---
Vital Signs 08/09/25 08:55 Height 5 ft 7 in Weight 180 lb 2 oz BMI 28.2 BP 136/82 Blood Pressure Location Lt brachial Position Sitting Pulse 83 Pulse Source Pulse Oximeter Pulse Oximetry (%) 96 Oxygen Delivery Method Room Air Intake Visit Reasons: 3m med visit Allergies No Known Allergies Allergy (Verified 08/09/25 08:55) Medication List - Last Reconciled 08/09/25 by Lloyd Woods MD albuterol sulfate 90 mcg/actuation 2 puffs inhalation Q4-6H PRN amlodipine 5 mg PO DAILY 90 days Anoro Ellipta 62.5-25 mcg/actuation (umeclidinium-vilanterol) 1 inh inhalation DAILY NS cetirizine (Zyrtec) 10 mg PO DAILY PRN cholecalciferol (vitamin D3) 25 mcg PO DAILY 90 days cyclobenzaprine 5 mg PO BEDTIME PRN 30 days fluticasone furoate 27.5 mcg/actuation (Flonase Sensimist) 1 spray intranasal DAILY 30 days gabapentin 300 mg PO BID ipratropium-albuterol 0.5 mg-3 mg(2.5 mg base)/3 mL 3 mL inhalation Q6-8H PRN 30 days leuprolide acetate (6 month) (Eligard) 45 mg subcut [id number] lisinopril 40 mg PO DAILY 90 days montelukast 10 mg PO DAILY 90 days nebulizers (VixOne Nebulizer-Adult Mask) As directed omeprazole 20 mg PO DAILY oxycodone 10 mg PO TID 30 days sucralfate (Carafate) 10 mL PO Q6H 10 days Tobacco use date assessed: 05/06/25 Last assessed Fall Risk: 08/09/25 Dental Screening Dental Screen Date: 05/06/25 HPI 3m med visit HPI Details History The patient is a 70-year-old male presenting with migraine headaches, insomnia, and a review of his medications. Migraine headaches: - Recently experiencing blurry vision, w ith episodes occurring more frequently. - Vision becomes watery as if looking th rough water and occasionally causes dizziness and nausea. - Symptoms include headaches that are no t typical migraines; however, there are combinations of blurred vision, headache, and nausea suggestive of migraines. - Previous history of regular headaches but not identified as migraine headaches. - has apt coming up with Neuro end of co cathie month Mean while I am starting him on amitripyline 25 mg at night as trial Insomnia: - Reports difficulty sleeping at night a ttributed to back pain. - Persistent issue that patient attribut es to his back discomfort. Medical History: - Hypertension managed with amlodipine 5 mg and lisinopril 40 mg. - Chronic Obstructive Pulmonary Disease (COPD) managed with Onoro and Ipratropium and Albuterol inhalers. - Allergies managed with cetirizine. - Muscle spasms managed with cyclobenzap rine. - Chronic insomnia. - Uses gabapentin 300 mg intermittently at night. - Takes montelukast, omeprazole, and oxy codone for unspecified indications. - failed back syndrom - cervical pain s/p surgery Medications: - Anoro inhaler for COPD. - Ipratropium and albuterol inhaler/nebu lizer for COPD. - Amlodipine 5 mg for hypertension. - Lisinopril 40 mg for hypertension. - Cetirizine for allergies. - Gabapentin 300 mg at night intermitten tly. - Cyclobenzaprine for muscle spasms. - Montelukast for unspecified indication s. - Omeprazole for gastroesophageal sympto ms. - Oxycodone 10 mg three times a day for pain management. Social History: - Smokes a full pack of cigarettes daily . - Expresses no intention to stop smoking . - Reports sedentary lifestyle as he sit s all day. Problem List - Migraine headaches ? - Insomnia - Hypertension - Chronic Obstructive Pulmonary Disease (COPD) - Allergy - Muscle spasm - Visual disturbances - Chronic pain back and neck - chronic anemia [place] of Care - Plans to consult with a neurologist; u pcoming appointment scheduled. - accounting software specialist noted everything was ok ay despite patient-reported blurriness. Patient Instructions - Start taking 25 mg of amitriptyline at night to assist with headache management. - Proceed with lab tests to check hemogl obin stability, kidney function, and liver enzymes. - Try a 25 mcg Fentanyl patch for pain m anagement; keep it on for three days before changing , as he continue to complain of back pain , and has visited Neurosurgery many times already dose is slightly higher than 30 mg of oxycodne he is taking daily i have sent few tabs of 5 mg Oxycodon sent just in case for break thru pain - Communicate with the pharmacy to addre ss the medication refill timing issues. 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: Alert awake oriented x3 motor intact skin: Normal turgor PFSH Medical History Arthritis Back pain Hx of radiation therapy HTN (hypertension) Colitis Colon cancer screening Nocturia Heartburn Muscle spasms of neck Pain management Opioid dependence Hypertension, essential GERD (gastroesophageal reflux disease) Smokers' cough Drug induced constipation COPD (chronic obstructive pulmonary disease) Tobacco abuse Asthma Failed back syndrome Surgical History H/O colonoscopy (~06/04/24) History of colonoscopy (04/10/10) History of rotator cuff surgery History of repair of laceration History of fusion of cervical spine History of laminectomy Family History Father HTN (hypertension) Lung cancer Mother HTN (hypertension) Dementia Breast cancer Maternal Grandmother No problems noted. Maternal Grandfather No problems noted. Paternal Grandfather No problems noted. Paternal Grandmother No problems noted. Brother Throat cancer Lung cancer Brother No problems noted. Daughter No problems noted. Daughter No problems noted. Sister Ovarian cancer Sister No problems noted. Sister No problems noted. Sister No problems noted. Maternal Aunt Breast cancer Social History Household Members: Family Housing: House Are you a primary home care aide to a significant other at home: No Do you presently have visiting nurse or other home services: No Alcohol intake: current Alcohol intake frequency: holidays/special occasions only Patient Tobacco Use Status: Current everyday Tobacco user Tobacco use type: Cigarette Cigarette Packs Per Day: 1.0 Cigarettes Per Day: 20.0 e-Cigarette/Vaping Use: Never Used service: No Current occupational status: disabled Cognitive needs: No Hearing needs: No Vision needs: Yes Questionnaire Thrive Questionnaire Date Thrive assessed: 01/07/25 I am a: Patient What is your living situation today?: I have a steady place to live Within the past 12 months, did the food you bought not last and you didn't have the money to get more?: I choose not to answer this question Within the past 12 months, did you worry whether your food would run out before you got money to buy more?: Never true Do you have trouble paying for medicines?: No Do you have trouble getting transportation to medical appointments?: Yes Do you have trouble paying your heating and electricity bill?: No Do you have trouble taking care of your child, family member or friend?: No Do you have trouble with day-to-day activities such as bathing, preparing meals, shopping, managing finances, etc.?: No Are you currently unemployed and looking for a job?: No Are you interested in more education?: No Please select the resources that you would like help with: None Currently or been in a relationship where the following occur: I choose not to answer THRIVE Score: 1 VIVIANA-7 AMB Questionnaire VIVIANA-7 Date VIVIANA - 7 assessed: 01/07/25 Source: Developed by Drs. Juan Motley, Blanca Manzo, Kelton Mooney and colleagues, with an educational homa from [employer]. Physical exam (Primary Care) Vital Signs: Last Vital Signs Pulse 83 08/09/25 08:55 BP 136/82 08/09/25 08:55 Pulse Ox 96 08/09/25 08:55 Oxygen Delivery Method Room Air 08/09/25 08:55 BMI result Body Mass Index 28.2 Tobacco/Smoking Status: Tobacco use Status Tobacco use date assessed 05/06/25 08/09/25 08:56 Patient Tobacco Use Status Current everyday Tobacco 08/09/25 08:56 Tobacco use type Cigarette 08/09/25 08:56 e-Cigarette/Vaping Use Never Used 08/09/25 08:56 Thrive Assessment: Date of Thrive Assessment Date Thrive assessed 01/07/25 08/09/25 08:56 Currently or been in a relationship where the following occur: I choose not to answer Coding Level of Care Code Est Pt Level 5 (98131) Diagnoses Failed back syndrome M96.1 Uncomplicated opioid dependence F11.20 Substance use status: uncomplicated Hypertension, essential I10 Impaired fasting blood sugar R73.01 Vitamin D deficiency E55.9 Gastroesophageal reflux disease without esophagitis K21.9 Esophagitis presence: without esophagitis Mixed simple and mucopurulent chronic bronchitis J41.8 COPD type: chronic bronchitis Chronic bronchitis type: mixed simple and mucopurulent Cigarette nicotine dependence without complication F17.210 Nicotine product type: cigarettes Substance use status: uncomplicated Pain management R52 Tobacco abuse Z72.0 Muscle spasms of neck M62.838 Environmental allergies Z91.09 Time Spent (min) 40 Comment face to face / charting / chart review / coordination of care Assessment & Plan Assessment & Plan (1) Failed back syndrome: Code(s): M96.1 - Postlaminectomy syndrome, not elsewhere classified Category: Medical (2) Opioid dependence: Comment: CONTROLLED NATURE OF MEDICATION WAS DISCUSSED, IT IS IMPORTANT TO NOTIFY ME OF CHANGE OF PHARMACY, OR IF TRAVELING. DO NOT SHARE THE MEDICATION WITH ANYBODY, KEEP IT SAFE AWAY FROM THE HANDS OF SMALL CHILDREN, AND ONLY TAKE IT PRESCRIBED. THIS MEDICATION HAVE A TENDENCY TO BE ABUSED, HABIT-FORMING, AND IT CAN CAUSE SEVERE CONSTIPATION ALONG WITH OTHER ALLERGIC REACTIONS. LONG-TERM USE OF NARCOTIC MEDICATIONS HAVE SHOWN TO INCREASE SENSITIVITY TO PAIN. Code(s): F11.20 - Opioid dependence, uncomplicated Category: Medical Qualifiers: Substance use status: uncomplicated Qualified Code(s): F11.20 - Opioid dependence, uncomplicated (3) Hypertension, essential: Code(s): I10 - Essential (primary) hypertension Category: Medical (4) Impaired fasting blood sugar: Code(s): R73.01 - Impaired fasting glucose Category: Medical (5) Vitamin D deficiency: Code(s): E55.9 - Vitamin D deficiency, unspecified Category: Medical (6) GERD (gastroesophageal reflux disease): Code(s): K21.9 - Gastro-esophageal reflux disease without esophagitis Category: Medical Qualifiers: Esophagitis presence: without esophagitis Qualified Code(s): K21.9 - Gastro-esophageal reflux disease without esophagitis (7) COPD (chronic obstructive pulmonary disease): Code(s): J44.9 - Chronic obstructive pulmonary disease, unspecified Category: Medical Qualifiers: COPD type: chronic bronchitis Chronic bronchitis type: mixed simple and mucopurulent Qualified Code(s): J41.8 - Mixed simple and mucopurulent chronic bronchitis (8) Nicotine dependence: Code(s): F17.200 - Nicotine dependence, unspecified, uncomplicated Category: Medical Qualifiers: Nicotine product type: cigarettes Substance use status: uncomplicated Qualified Code(s): F17.210 - Nicotine dependence, cigarettes, uncomplicated (9) Pain management: Code(s): R52 - Pain, unspecified Category: Medical (10) Tobacco abuse: Code(s): Z72.0 - Tobacco use Category: Medical (11) Muscle spasms of neck: Code(s): M62.838 - Other muscle spasm Category: Medical (12) Environmental allergies: Code(s): Z91.09 - Other allergy status, other than to drugs and biological substances Category: Medical Plan History The patient is a 70-year-old male presenting with migraine headaches, insomnia, and a review of his medications. Migraine headaches: - Recently experiencing blurry vision, with episodes occurring more frequently. - Vision becomes watery as if looking through water and occasionally causes dizziness and nausea. - Symptoms include headaches that are not typical migraines; however, there are combinations of blurred vision, headache, and nausea suggestive of migraines. - Previous history of regular headaches but not identified as migraine headaches. - has apt coming up with Neuro end of coming month Mean while I am starting him on amitripyline 25 mg at night as trial Insomnia: - Reports difficulty sleeping at night attributed to back pain. - Persistent issue that patient attributes to his back discomfort. Medical History: - Hypertension managed with amlodipine 5 mg and lisinopril 40 mg. - Chronic Obstructive Pulmonary Disease (COPD) managed with Onoro and Ipratropium and Albuterol inhalers. - Allergies managed with cetirizine. - Muscle spasms managed with cyclobenzaprine. - Chronic insomnia. - Uses gabapentin 300 mg intermittently at night. - Takes montelukast, omeprazole, and oxycodone for unspecified indications. - failed back syndrom - cervical pain s/p surgery Medications: - Anoro inhaler for COPD. - Ipratropium and albuterol inhaler/nebulizer for COPD. - Amlodipine 5 mg for hypertension. - Lisinopril 40 mg for hypertension. - Cetirizine for allergies. - Gabapentin 300 mg at night intermittently. - Cyclobenzaprine for muscle spasms. - Montelukast for unspecified indications. - Omeprazole for gastroesophageal symptoms. - Oxycodone 10 mg three times a day for pain management. Social History: - Smokes a full pack of cigarettes daily. - Expresses no intention to stop smoking. - Reports sedentary lifestyle as he sits all day. Problem List - Migraine headaches ? - Insomnia - Hypertension - Chronic Obstructive Pulmonary Disease (COPD) - Allergy - Muscle spasm - Visual disturbances - Chronic pain back and neck - chronic anemia [place] of Care - Plans to consult with a neurologist; upcoming appointment scheduled. - accounting software specialist noted everything was okay despite patient-reported blurriness. Patient Instructions - Start taking 25 mg of amitriptyline at night to assist with headache management. - Proceed with lab tests to check hemoglobin stability, kidney function, and liver enzymes. - Try a 25 mcg Fentanyl patch for pain management; keep it on for three days before changing , as he continue to complain of back pain , and has visited Neurosurgery many times already dose is slightly higher than 30 mg of oxycodne he is taking daily i have sent few tabs of 5 mg Oxycodon sent just in case for break thru pain - Communicate with the pharmacy to address the medication refill timing issues. f/u 4 wks Orders: Orders Complete Blood Count Auto Diff Today E55.9 - Vitamin D deficiency, unspecified, F17.210 - Nicotine dependence, cigarettes, uncomplicated, I10 - Essential (primary) hypertension, J41.8 - Mixed simple and mucopurulent chronic bronchitis, K21.9 - Gastro-esophageal reflux disease without esophagitis, R73.01 - Impaired fasting glucose LDL Cholesterol Direct Today E55.9 - Vitamin D deficiency, unspecified, F17.210 - Nicotine dependence, cigarettes, uncomplicated, I10 - Essential (primary) hypertension, J41.8 - Mixed simple and mucopurulent chronic bronchitis, K21.9 - Gastro-esophageal reflux disease without esophagitis, R73.01 - Impaired fasting glucose Vitamin D 25-OH (D2 and D3) Today E55.9 - Vitamin D deficiency, unspecified, F17.210 - Nicotine dependence, cigarettes, uncomplicated, I10 - Essential (primary) hypertension, J41.8 - Mixed simple and mucopurulent chronic bronchitis, K21.9 - Gastro-esophageal reflux disease without esophagitis, R73.01 - Impaired fasting glucose Comprehensive Met. Panel Today E55.9 - Vitamin D deficiency, unspecified, F17.210 - Nicotine dependence, cigarettes, uncomplicated, I10 - Essential (primary) hypertension, J41.8 - Mixed simple and mucopurulent chronic bronc hitis, K21.9 - Gastro-esophageal reflux disease without esophagitis, R73.01 - Impaired fasting glucose Medications: New amitriptyline 25 mg PO BEDTIME 30 tabs 0RF 30 days fentanyl 25 mcg/hr Partial Fill upon patient request. 1 patch transdermal Q72H 5 ea 0RF 30 days Changed From oxycodone partial refill allowed 10 mg PO TID 30 days 90 tabs 0RF pain F11.20 - Opioid dependence, uncomplicated, M96.1 - Postlaminectomy syndrome, not elsewhere classified, R52 - Pain, unspecified To oxycodone partial refill allowed; for break through pain 5 mg PO ONCE 30 tabs 0RF pain 30 days F11.20 - Opioid dependence, uncomplicated, M96.1 - Postlaminectomy syndrome, not elsewhere classified, R52 - Pain, unspecified
--- OUTSIDE RECORDS SUMMARY | 2025-08-09 09:27 | XMS_ITS | Patient Health Record ---
Author Organization [facility] Address [address] [place] [address] Care Team Providers Care Nurse Administrator Name Role Phone Juan Irwin Unavailable [phone] Reason For Referral No Information Plan Of Treatment No Information
--- OUTSIDE RECORDS SUMMARY | 2025-08-09 09:27 | XMS_ITS | Clinical Summary ---
Author Organization [facility] Address [address] [place] [id number] Phone Care Team Providers Care Dump Worker Name Role Phone Lloyd Woods MD Primary Care Provider [phone] Allergies No known active allergies Medications No known medications Active Problems No known active problems Medical History Medical History Date Comments COPD (chronic obstructive pu lmonary disease) ([facility] V24, [facility] V28) DX:COPD (chronic o bstructive pulmonary disease) ([facility]) GERD (gastroesophageal reflux disease) DX:GERD (gastroesophageal reflux disease) Heart burn DX:Heart burn Drug induced constipation DX:Jair g induced constipation Failed back syndrome DX:Failed b ack syndrome Muscle spasm DX:Muscle spasm Essential (primary) hypertension DX:Essential (primary) hypertension Opioid dependence ([facility] V 24, [facility] V28) DX:Opioid dependence ([facility]) Prostate cancer ([facility] V24 , [facility] V28) Social History [...] Health Maintenance Due Date Last Done Comments Colorectal Cancer Screening: Colonoscopy 1957 DTaP,Tdap,and Td Vaccines (1 - Tdap) 1976 Pneumococcal Vaccine: 50+ Years (1 of 2 - PCV) 1976 Zoster Vaccines (1 of 2) 2007 Abdominal Aortic Aneurysm (AAA) Screen 10/13/2022 Cholesterol Screening (Lipid Panel) 10/13/2022 Falls Risk Assessment 10/13/2022 Hepatitis C Screening 10/13/2022 Medicare Annual Wellness Visit 10/13/2022 Social Influencers of Health Screening 10/13/2022 Depression Screening 11/10/2024 COVID-19 Vaccine ( season) 2025 12/01/2021, 03/30/2021, 03/09/2021 Influenza Vaccine (#1) 2025 , 10/09/2021, 10/01/2019, [...] mmol/L LAB CHEMISTRY METHOD 01/26/2025 9:20 PM [facility] Potassium 4.7 3.5 - 5.5 mmol/L LAB CHEMISTRY METHOD 01/26/2025 9:20 PM [facility] Chloride 106 96 - 110 mmol/L LAB CHEMISTRY METHOD 01/26/2025 9:20 PM [facility] CO2 25 21 - 32 mmol/L LAB CHEMISTRY METHOD 01/26/2025 9:20 PM [facility] Anion Gap 6 3 - 11 LAB CHEMISTRY METHOD 01/26/2025 9:20 PM [facility] Glucose 153(H) 70 - 100 mg/dL LAB CHEMISTRY METHOD 01/26/2025 9:20 PM [facility] BUN 25 5 - 25 mg/dL LAB CHEMISTRY METHOD 01/26/2025 9:20 PM [facility] Creatinine 1.01 0.70 - 1.30 mg/dL LAB CHEMISTRY METHOD 01/26/2025 9:20 PM [facility] eGFR 82 >=60 mL/min/1. 73m2 LAB CHEMISTRY METHOD 01/26/2025 9:20 PM [facility] Comment:Calculation based on the Chronic Kidney Disease Epidemiology Collaboration (CKD-EPI) equation refit without adjustment for race. BUN/Creatinine Ratio 24.8 LAB CHEMISTRY METHOD 01/26/2025 9:20 PM EDT [facility] Calcium 9.1 8.5 - 10.5 mg/dL LAB CHEMISTRY METHOD 01/26/2025 9:20 PM EDT [facility] Blood Venous blood specimen / Unknown Venipuncture / Unknown 01/26/2025 8:15 PM EDT 01/26/2025 8:56 PM EDT us [facility] LAB BLOOD ORDERABLES Final Re sult [facility] [address] [place] [address], from Last 3 Months or Most Recently Relevant to Health Maintenance Insurance MEDICARE MEDICAID - [place] Care Teams Dump Worker Relationship Specialty Start Date End Date Lloyd Woods MD [address] [place] [address] PCP - General Internal Medicine 12/23/11
--- OUTSIDE RECORDS SUMMARY | 2025-08-09 09:28 | XMS_ITS | Patient Health Record ---
Author Organization [facility] Address [address] [place] [address] Care Team Providers Care Energy Control Officer Name Role Phone Chuck VEGA, [facility] Primary [facility] Provider Talha Sanabria Unavailable [phone] Allergies No Known Allergies Reason For Referral No Information Medications Medication SIG (Take, Route, Fr equency, Duration) Notes Start Date End Date Status Montelukast Sodium A ctive amLODIPine Besylate Active Lisinopril Active Finasteride Active Omeprazole Active Gabapentin Active oxyCODONE HCl Active Anoro Ellipta Active Ciclopirox 0.77 % 1 application Youth Coordinator ally Twice a day; Duration: 365 days [...] Risk Notes Problem Fungal infection of nail ([id number]) 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 [employer] Claims [address] [place] [address] [phone] [id number] Daryn Duncan Self - patient is the insured Medical (General) History Medical History History ICD Code Arthritis asthma Back,Hip,and Knee pain Cancer Hypertension Stomach ulcer Measles Chicken pox Joint implants/screws Surgical History Surgery Date(Month/Year) neck surgery Lower back surgery shoulder surgery
== END 2025-08-09 09:25 | disposition home or self-care (01) ==
PROVIDERS: PCP Internal Medicine; Visit Provider Internal Medicine
DX: I10 Essential (primary) hypertension (principal); M96.1 Postlaminectomy syndrome, not elsewhere classified; F11.20 Opioid dependence, uncomplicated; J41.8 Mixed simple and mucopurulent chronic bronchitis; R73.01 Impaired fasting glucose; E55.9 Vitamin D deficiency, unspecified; K21.9 Gastro-esophageal reflux disease without esophagitis; F17.210 Nicotine dependence, cigarettes, uncomplicated; R52 Pain, unspecified; Z72.0 Tobacco use; M62.838 Other muscle spasm; Z91.09 Other allergy status, other than to drugs and biological substances

== ENCOUNTER 2025-08-09 08:54 | Outpatient (REF) | payer MEDICARE, MEDICAID, SELFPAY ==
[2025-08-09 10:40] LABS: MANUAL DIFF FLAG NO
[2025-08-09 10:48] LABS: Hematocrit 40.6 % (42.0-52.0); Hemoglobin 14.2 g/dl (14.0-18.0); Imm Gran Abs Auto 0.01 X10*3/uL (0.00-0.03); Imm Gran Pct Auto 0.2 % (0.0-0.4); Lymphocytes Absolute Auto 1.8 X10*3/uL (1.2-4.9); Mean Corpuscular HGB Conc 35.0 g/dl (31.0-36.0); Mean Corpuscular Hemoglobin 32.4 pg (27.0-33.0); Mean Corpuscular Volume 92.7 fL (80.0-98.0); NRBC Abs Auto 0.000 X10*3/uL (0.0-0.012); NRBC Pct Auto 0.0 /100WBC (0.0-0.2); Platelet Count 266 X10*3/uL (160-400); Red Blood Count 4.38 X10*6/uL (4.60-5.80); White Blood Count 5.6 X10*3/uL (4.8-10.8)
[2025-08-09 11:49] LABS: Alanine Aminotransferase 26 U/L (0-40); Albumin Level 4.3 g/dL (3.5-5.0); Alkaline Phosphatase 93 U/L (39-117); Anion Gap 10 (12-20); Aspartate Amino Transferase 50 U/L (5-37); Blood Urea Nitrogen 23 mg/dL (9-16); Calcium 9.4 mg/dL (8.4-10.2); Carbon Dioxide 28 mmol/L (22-29); Chloride 103 mmol/L (96-108); Estimated Glomerular Filt Rate > 60; Potassium 5.2 mmol/L (3.3-5.1); Sodium 136 mmol/L (135-145); Total Protein 7.1 g/dL (6.5-8.0)
[2025-08-15 14:17] LABS: Vitamin D 25-OH, D2 <4 ng/mL; Vitamin D 25-OH, D3 51 ng/mL; Vitamin D 25-OH, Total 51 ng/mL (30-100)
== END 2025-08-09 08:55 | disposition home or self-care (01) ==
LOC: HO.HMGCLDS 08:54
PROVIDERS: PCP Internal Medicine; Visit Provider Internal Medicine
DX: M96.1 Postlaminectomy syndrome, not elsewhere classified (principal); I10 Essential (primary) hypertension; R73.01 Impaired fasting glucose; E55.9 Vitamin D deficiency, unspecified; K21.9 Gastro-esophageal reflux disease without esophagitis; J41.8 Mixed simple and mucopurulent chronic bronchitis; M62.838 Other muscle spasm; Z91.09 Other allergy status, other than to drugs and biological substances; F17.210 Nicotine dependence, cigarettes, uncomplicated; Z71.6 Tobacco abuse counseling
CPT/HCPCS: 36415; 80053; 82306; 83721; 85025; 99212

== ENCOUNTER 2025-08-19 14:42 | Outpatient (AMB) | payer MEDICARE, MEDICAID, SELFPAY ==
--- NOTE | 2025-08-19 14:45 | MHC.OFFVIS ---
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 He is a patient of Dr. Woods. He is seen for the following urologic conditions - elevated PSA - lower urinary tract symptoms Accompanied by daughter and granddaughter Six-month follow-up lab work Still with hot flashes despite testosterone rising to 300 Otherwise doing well 08/04 0.1 300 02/01 <0.1, T 43 09/02 - PSA <0.1 T 16 Hot flashes resolving Stop finasteride 03/03 <0.1 T 21 Third GnRH today 01/03 0.1, T 23 09/01 GnRH, finasteride - main concern was proctitis which was resolving PSA 05/02 0.6 GnRH 03/04/23 with finasteride - MAB during XRT (GnRH bicalutamide + finasteride) Prostate cancer - Grade Group Grade Group 4 - EXBRT with maximum androgen blockade ([facility]) completed April 2023 Adenocarcinoma of the prostate (T1c N0 M0, Nelli score 3+5, Grade Group 4, PSA at Diagnosis 5.4) - NCCN high risk group Prostate cancer was diagnosed Dr Flower Diagnosis was reached by - for elevated PSA - 5.4 F 11% - 40cc Date: 12/02 12 Core biopsy Positive Biopsies: 4 Negative Biopsies: 8 - (%) Positive: Locations: Left base lateral 3+4 25%, left base medial 3+4 25%, left mid lateral 3+3 5%, left mid medial 3+5 25% TNM Classification of Malignant Tumours (TNM) - T2a Staging Imaging - 12/02 PMSA - metabolically active prostate, question of rib involvement however unlikely - 01/30 prostate MRI - left posterolateral mid, base 1.5 cm PI-RADS 4 with abutment, no clear evidence of extracapsular extension Associated conditions erectile dysfunction Mild EXBRT with maximum androgen blockade with Dr. Austin at [facility] 7600 grade, 44 fractions Lower urinary tract symptoms Nocturia 2-3 Variable stream Prior medications include tamsulosin, finasteride and terazosin ALEK 1+ prominent medial sulcus Low libido Reports decline in desire Baseline chronic opiate use T 10/01 452 PSA 05/01 5.9, 10/01 5.4 11% PFSH Medical History (Updated 08/19/25 @ 15:08 by Samy Flower MD) Low libido Elevated PSA Arthritis Back pain Hx of radiation therapy HTN (hypertension) Colitis Colon cancer screening Nocturia Heartburn Muscle spasms of neck Pain management Opioid dependence Hypertension, essential GERD (gastroesophageal reflux disease) Smokers' cough Drug induced constipation COPD (chronic obstructive pulmonary disease) Tobacco abuse Asthma Failed back syndrome Surgical History H/O colonoscopy (~06/04/24) History of colonoscopy (04/10/10) History of rotator cuff surgery History of repair of laceration History of fusion of cervical spine History of laminectomy Family History Father HTN (hypertension) Lung cancer Mother HTN (hypertension) Dementia Breast cancer Maternal Grandmother No problems noted. Maternal Grandfather No problems noted. Paternal Grandfather No problems noted. Paternal Grandmother No problems noted. Brother Throat cancer Lung cancer Brother No problems noted. Daughter No problems noted. Daughter No problems noted. Sister Ovarian cancer Sister No problems noted. Sister No problems noted. Sister No problems noted. Maternal Aunt Breast cancer Social History Household Members: Family Housing: House Are you a primary career development consultant to a significant other at home: No Do you presently have visiting nurse or other home services: No Alcohol intake: current Alcohol intake frequency: holidays/special occasions only Patient Tobacco Use Status: Current everyday Tobacco user Tobacco use type: Cigarette Cigarette Packs Per Day: 1.0 Cigarettes Per Day: 20.0 e-Cigarette/Vaping Use: Never Used service: No Current occupational status: disabled Cognitive needs: No Hearing needs: No Vision needs: Yes Review of Systems Const Denies chills and Denies fever(s) Card Reports no additional complaints and Denies syncope Resp Denies cough GI Denies abdominal pain and Denies heartburn Reports as per HPI and Denies change in libido Neuro Denies syncope Psych Denies change in libido Endo Denies change in libido Physical Exam Const General: cooperative, healthy appearing, comfortable and no acute distress Orientation/consciousness: patient oriented x3 HEENT Face and sinus: Yes normal facial exam Mouth: moist mucous membranes Neck Neck: Yes normal visual inspection, Yes full ROM and Yes trachea midline Chest Chest palpation & inspection: normal inspection of the chest Resp Effort & Inspection: normal respiratory effort, able to speak in complete sentences and no respiratory distress GI Inspection: Yes normal to inspection Back/Spine/Pelvis Cervical Spine: normal cervical lordosis Thoracic/Lumbar Spine: thoracic and lumbar spine normal to inspection Skin General skin exam: no rashes or lesions noted Neuro General: patient oriented x3, gait normal, tone normal and moves all extremities Extrem General: Yes normal to inspection and Yes capillary refill normal Assessment & Plan Assessment & Plan (1) Nocturia more than twice per night: Code(s): R35.1 - Nocturia Category: Medical (2) Prostate cancer: Comment: 12/02 PSA 5.4, high risk Nelli 3 + 5, 4 cores Code(s): C61 - Malignant neoplasm of prostate Category: Medical Plan Six-month follow-up lab work Orders: Orders Prostate Specific Antigen 5 Months C61 - Malignant neoplasm of prostate Testosterone, Total 5 Months C61 - Malignant neoplasm of prostate Patient Instructions: This note is constructed using voice recognition software. While every effort has been made to ensure accuracy service superintendent errors may have been included. Imaging studies, laboratory and physical exam results were discussed and reviewed in detail. No major barriers to patient understanding were identified. An opportunity to ask questions regarding the treatment plan was provided. All questions were answered. The patient expressed understanding and agreement with the above treatment plan. The patient is aware they should contact our office by phone for worsening of their current condition or the appearance of new urologic symptoms. Compliance is encouraged with any medications and followup testing that is ordered. It is a privilege to participate in the urologic care of your patient. If you have any questions or concerns regarding treatment for the above conditions, or other urologic issues, please do not hesitate to contact me. The office telephone contact is [phone]. Sincerely, Dr Samy Flower MD, [facility] - Urology Compassionate Specialist Care for the Genitourinary System Coding Level of Care Code Est Pt Level 3 (83162) Complex EM visit Add On G2211 Diagnoses Nocturia more than twice per night R35.1 Prostate cancer C61
== END 2025-08-19 15:12 | disposition home or self-care (01) ==
LOC: HO.HUSH 14:42
PROVIDERS: PCP Internal Medicine; Visit Provider Urology
DX: R35.1 Nocturia (principal); C61 Malignant neoplasm of prostate
CPT/HCPCS: 99213; G2211

== ENCOUNTER → 2025-08-19 14:42 | Outpatient (BNVA) | payer MEDICARE, MEDICAID, SELFPAY | PROVIDERS: PCP Internal Medicine; Visit Provider Urology | DX: R35.1 Nocturia (principal); C61 Malignant neoplasm of prostate | CPT/HCPCS: 99212 ==

== ENCOUNTER 2025-08-24 11:28 | Outpatient (AMB) | payer MEDICARE, MEDICAID, SELFPAY ==
[2025-08-24 11:31] VITALS: BP 150/80; PULSE 83; O2SAT 97; BMI 28.1
--- NOTE | 2025-08-24 11:31 | A.OFFPC_ITS ---
Vital Signs 08/24/25 11:31 08/24/25 12:23 Height 5 ft 7 in Weight 179 lb 2 oz BMI 28.1 BP 150/80 H 138/88 Blood Pressure Location Lt brachial Position Sitting Pulse 83 Pulse Source Pulse Oximeter Pulse Oximetry (%) 97 Oxygen Delivery Method Room Air Intake Visit Reasons: medication review Primary Education Professor Required: No Accompanied by: Self / Same As Patient Allergies No Known Allergies Allergy (Verified 08/24/25 11:31) Medication List - Last Reconciled 08/24/25 by Lloyd Woods MD albuterol sulfate 90 mcg/actuation 2 puffs inhalation Q4-6H PRN amitriptyline 25 mg PO BEDTIME 30 days amlodipine 5 mg PO DAILY 90 days Anoro Ellipta 62.5-25 mcg/actuation (umeclidinium-vilanterol) 1 inh inhalation DAILY NS cetirizine (Zyrtec) 10 mg PO DAILY PRN cholecalciferol (vitamin D3) 25 mcg PO DAILY 90 days cyclobenzaprine 5 mg PO BEDTIME PRN 30 days fentanyl 25 mcg/hr 1 patch transdermal Q72H 30 days fluticasone furoate 27.5 mcg/actuation (Flonase Sensimist) 1 spray intranasal DAILY 30 days gabapentin 300 mg PO BID ipratropium-albuterol 0.5 mg-3 mg(2.5 mg base)/3 mL 3 mL inhalation Q6-8H PRN 30 days leuprolide acetate (6 month) (Eligard) 45 mg subcut [id number] lisinopril 40 mg PO DAILY 90 days montelukast 10 mg PO DAILY 90 days nebulizers (VixOne Nebulizer-Adult Mask) As directed omeprazole 20 mg PO DAILY oxycodone 5 mg PO ONCE 30 days sucralfate (Carafate) 10 mL PO Q6H 10 days Tobacco use date assessed: 05/06/25 Fall risk assessment: No Falls in past year Last assessed Fall Risk: 08/24/25 Dental Screening Dental Screen Date: 05/06/25 HPI medication review HPI Details History of Present Illness The patient is a 70-year-old male presenting with the requirement for pain management optimization. Failed Back Syndrome: - The patient continues to experience ch ronic pain following multiple surgical interventions on the cervical and lumbar spine. - Reports ongoing pain despite current p ain management regimen. - Historically, the patient was taking o xycodone 10 mg every eight hours with moderate control but switched to a Fentanyl patch 25 mcg and oxycodone 5 mg for breakthrough pain. - Reports use of Colace for stool soften ing, but acknowledges the need for additional medication to aid bowel movements. Medical History: - Chronic pain managed post-cervical and lumbar spine surgeries. - Failed Back Syndrome. Surgical History: - Multiple cervical spine surgeries. - Multiple lumbar spine surgeries. Medications: - Fentanyl patch, 25 mcg for chronic sabine n management. - Oxycodone 5 mg for breakthrough pain. - Colace for stool softening. Problem List - Failed Back Syndrome - Chronic pain post spinal surgeries Plan - Increase the Fentanyl patch dosage to 37.5 mcg to evaluate if this offers more effective pain management and potentially reduces the need for breakthrough oxycodone. - Advise against using oxycodone in comb ination with the increased Fentanyl patch dosage unless necessary, to prevent excessive sedation and possible opioid-related side effects. - Monitor for potential side effects of increased opioid use, such as constipation, nausea, or jitteriness. The patient is advised to report any intolerable symptoms. - Reinforce the importance of maintainin g the current patch application schedule and attending follow-up appointments to ensure overall treatment efficacy. - Encourage continued use of Colace and consider additional constipation medication if stool softener is ineffective alone. Review of Systems - General: No fever no chills - Neurological: No headaches no dizziness - Ear nose throat: No sore throat no hearing difficulty no ear pain - Cardiovascular: No syncope, no chest pain, no palpitations - Gastrointestinal: No nausea vomiting or diarrhea - Endocrine: No polyuria polydipsia no heat intolerance - Genitourinary: No dysuria , no blood in urine Physical Exam General: No acute distress HEENT: No acute findings Neck: Supple Respiratory system: Able to talk in full sentences, no audible wheeze Gastrointestinal: Pain in groin Extremities: No new findings MOSS BLEACHER: Alert awake oriented x3 motor intact Skin: Normal turgor [facility] Medical History Low libido Elevated PSA Arthritis Back pain Hx of radiation therapy HTN (hypertension) Colitis Colon cancer screening Nocturia Heartburn Muscle spasms of neck Pain management Opioid dependence Hypertension, essential GERD (gastroesophageal reflux disease) Smokers' cough Drug induced constipation COPD (chronic obstructive pulmonary disease) Tobacco abuse Asthma Failed back syndrome Surgical History H/O colonoscopy (~06/04/24) History of colonoscopy (04/10/10) History of rotator cuff surgery History of repair of laceration History of fusion of cervical spine History of laminectomy Family History Father HTN (hypertension) Lung cancer Mother HTN (hypertension) Dementia Breast cancer Maternal Grandmother No problems noted. Maternal Grandfather No problems noted. Paternal Grandfather No problems noted. Paternal Grandmother No problems noted. Brother Throat cancer Lung cancer Brother No problems noted. Daughter No problems noted. Daughter No problems noted. Sister Ovarian cancer Sister No problems noted. Sister No problems noted. Sister No problems noted. Maternal Aunt Breast cancer Social History Household Members: Family Housing: House Are you a primary childcare attendant to a significant other at home: No Do you presently have visiting nurse or other home services: No Alcohol intake: current Alcohol intake frequency: holidays/special occasions only Patient Tobacco Use Status: Current everyday Tobacco user Tobacco use type: Cigarette Cigarette Packs Per Day: 1.0 Cigarettes Per Day: 20.0 e-Cigarette/Vaping Use: Never Used service: No Current occupational status: disabled Cognitive needs: No Hearing needs: No Vision needs: Yes Questionnaire Thrive Questionnaire Date Thrive assessed: 01/07/25 I am a: Patient What is your living situation today?: I have a steady place to live Within the past 12 months, did the food you bought not last and you didn't have the money to get more?: I choose not to answer this question Within the past 12 months, did you worry whether your food would run out before you got money to buy more?: Never true Do you have trouble paying for medicines?: No Do you have trouble getting transportation to medical appointments?: Yes Do you have trouble paying your heating and electricity bill?: No Do you have trouble taking care of your child, family member or friend?: No Do you have trouble with day-to-day activities such as bathing, preparing meals, shopping, managing finances, etc.?: No Are you currently unemployed and looking for a job?: No Are you interested in more education?: No Please select the resources that you would like help with: None Currently or been in a relationship where the following occur: I choose not to answer THRIVE Score: 1 VIVIANA-7 AMB Questionnaire VIVIANA-7 Date VIVIANA - 7 assessed: 01/07/25 Source: Developed by Drs. Juan Motley, Blanca Manzo, Kelton Mooney and colleagues, with an educational homa from [employer]. Physical exam (Primary Care) Vital Signs: Last Vital Signs Pulse 83 08/24/25 11:31 BP 150/80 H 08/24/25 11:31 Pulse Ox 97 08/24/25 11:31 Oxygen Delivery Method Room Air 08/24/25 11:31 BMI result Body Mass Index 28.1 Tobacco/Smoking Status: Tobacco use Status Tobacco use date assessed 05/06/25 08/24/25 11:32 Patient Tobacco Use Status Current everyday Tobacco 08/24/25 11:32 Tobacco use type Cigarette 08/24/25 11:32 e-Cigarette/Vaping Use Never Used 08/24/25 11:32 Thrive Assessment: Date of Thrive Assessment Date Thrive assessed 01/07/25 08/24/25 11:32 Currently or been in a relationship where the following occur: I choose not to answer Coding Level of Care Code Est Pt Level 3 (19102) Diagnoses Failed back syndrome M96.1 Uncomplicated opioid dependence F11.20 Substance use status: uncomplicated Assessment & Plan Assessment & Plan (1) Failed back syndrome: Code(s): M96.1 - Postlaminectomy syndrome, not elsewhere classified Category: Medical (2) Opioid dependence: Comment: CONTROLLED NATURE OF MEDICATION WAS DISCUSSED, IT IS IMPORTANT TO NOTIFY ME OF CHANGE OF PHARMACY, OR IF TRAVELING. DO NOT SHARE THE MEDICATION WITH ANYBODY, KEEP IT SAFE AWAY FROM THE HANDS OF SMALL CHILDREN, AND ONLY TAKE IT PRESCRIBED. THIS MEDICATION HAVE A TENDENCY TO BE ABUSED, HABIT-FORMING, AND IT CAN CAUSE SEVERE CONSTIPATION ALONG WITH OTHER ALLERGIC REACTIONS. LONG-TERM USE OF NARCOTIC MEDICATIONS HAVE SHOWN TO INCREASE SENSITIVITY TO PAIN. Code(s): F11.20 - Opioid dependence, uncomplicated Category: Medical Qualifiers: Substance use status: uncomplicated Qualified Code(s): F11.20 - Opioid dependence, uncomplicated Plan Failed Back Syndrome: - The patient continues to experience chronic pain following multiple surgical interventions on the cervical and lumbar spine. - Reports ongoing pain despite current pain management regimen. - Historically, the patient was taking oxycodone 10 mg every eight hours with moderate control but switched to a Fentanyl patch 25 mcg and oxycodone 5 mg for breakthrough pain. - Reports use of Colace for stool softening, but acknowledges the need for additional medication to aid bowel movements. Medical History: - Chronic pain managed post-cervical and lumbar spine surgeries. - Failed Back Syndrome. Surgical History: - Multiple cervical spine surgeries. - Multiple lumbar spine surgeries. Medications: - Fentanyl patch, 25 mcg for chronic pain management. - Oxycodone 5 mg for breakthrough pain. - Colace for stool softening. Problem List - Failed Back Syndrome - Chronic pain post spinal surgeries Plan - Increase the Fentanyl patch dosage to 37.5 mcg to evaluate if this offers more effective pain management and potentially reduces the need for breakthrough oxycodone. - Advise against using oxycodone in combination with the increased Fentanyl patch dosage unless necessary, to prevent excessive sedation and possible opioid-related side effects. - Monitor for potential side effects of increased opioid use, such as constipation, nausea, or jitteriness. The patient is advised to report any intolerable symptoms. - Reinforce the importance of maintaining the current patch application schedule and attending follow-up appointments to ensure overall treatment efficacy. - Encourage continued use of Colace and consider additional constipation medication if stool softener is ineffective alone. Medications: Changed 2 From fentanyl 25 mcg/hr Partial Fill upon patient request. 1 patch transdermal Q72H 30 days 5 ea 0RF To fentanyl 37.5 mcg/hour Partial Fill upon patient request. 1 patch transdermal Q72H 5 ea 0RF 15 days Discontinued oxycodone partial refill allowed; for break through pain Discontinued Reason: Doctor's Order 5 mg PO ONCE 30 days 30 tabs 0RF pain F11.20 - Opioid dependence, uncomplicated, M96.1 - Postlaminectomy syndrome, not elsewhere classified, R52 - Pain, unspecified
[2025-08-24 12:23] VITALS: BP 138/88
== END 2025-08-24 12:29 | disposition home or self-care (01) ==
LOC: HO.HMCC 11:29
PROVIDERS: PCP Internal Medicine; Visit Provider Internal Medicine
DX: M96.1 Postlaminectomy syndrome, not elsewhere classified (principal); F11.20 Opioid dependence, uncomplicated

== ENCOUNTER → 2025-08-24 11:28 | Outpatient (BNVA) | payer MEDICARE, MEDICAID, SELFPAY | PROVIDERS: PCP Internal Medicine; Visit Provider Internal Medicine | DX: M96.1 Postlaminectomy syndrome, not elsewhere classified (principal); F11.20 Opioid dependence, uncomplicated | CPT/HCPCS: 99212 ==

== ENCOUNTER 2025-09-06 09:34 | Outpatient (AMB) | payer MEDICARE, MEDICAID, SELFPAY ==
--- OUTSIDE RECORDS SUMMARY | 2024-09-21 10:00 | XMS_ITS ---
Author Organization [facility] Address [address] [place] [address] Care Team Providers Care Ripsaw Operator Name Role Phone Chuck VEGA, Lloyd Primary Care Provider Unavailabl Talha Bess Unavailable [phone] Medications Medication SIG (Take, Route, Fr equency, Duration) Notes Start Date End Date Status Montelukast Sodium A ctive amLODIPine Besylate Active Anoro Ellipta Active Ciclopirox 0.77 % 1 application Regulator Assembler ally Twice a day; Duration: 365 days Active Vitamin D3 Active Lisinopril Active Finasteride Active Omeprazole Active Gabapentin Active oxyCODONE HCl Active Encounters Encounter Location Date Provider Diagnosis [address] [address] 09/21/2024 Talha Soto Plan Of Treatment No Information Progress Notes * Daryn DUNCANDOB: [birth year] (70 yo M)Acc No.[id number]:09/21/2024 Progress Note Patient: Daryn WHITEHEAD Provider: Sly Soto DPM :1955 A ge:69 Y S ex:Male Date:09/21/2024 Address[address] [id number] Pcp:Lloyd Woods MD Subjective: * Chief Complaints: [...] Date: 11/21/2023 Generated for Tiara solis/Stormy/Tiffanie on: 11:04 AM EDT
--- OUTSIDE RECORDS SUMMARY | 2024-10-12 10:15 | XMS_ITS ---
Author Organization [facility] Address [address] [place] [address] Care Team Providers Care Customer Service Operator Name Role Phone Chuck VEGA, Lloyd Primary Care Provider Unavailabl Talha Bess Unavailable [phone] Encounters Encounter Location Date Provider Diagnosis [facility] [address] [place] [address] 10/12/2024 Talha Soto Plan Of Treatment No Information Progress Notes * Daryn DUNCANDOB: [birth year] (70 yo M)Acc No.[id number]:10/12/2024 Progress Note Patient: Daryn WHITEHEAD Provider: Sly Soto DPM :1955 A ge:69 Y S ex:Male Date:10/12/2024 [facility] Pcp:Lloyd Woods MD Subjective: * Chief Complaints: [...] Date: 12/13/2023 Generated for Oscari ng/Fakarishmag/eTransmitting on: 11:03 AM EDT
[2025-09-06 09:42] VITALS: BP 136/66; PULSE 69; RESP 16; O2SAT 94; BMI 27.5
--- NOTE | 2025-09-06 09:42 | MHC.PC.OV ---
Vital Signs 09/06/25 09:42 Height 5 ft 7 in Weight 175 lb 6 oz BMI 27.5 BP 136/66 Blood Pressure Location Lt brachial Position Sitting Respiration 16 Pulse 69 Pulse Source Pulse Oximeter Pulse Oximetry (%) 94 Oxygen Delivery Method Room Air Intake Visit Reasons: 1m follow up Allergies No Known Allergies Allergy (Verified 09/06/25 09:42) Medication List - Last Reconciled 09/06/25 by Lloyd Woods MD albuterol sulfate 90 mcg/actuation 2 puffs inhalation Q4-6H PRN amitriptyline 25 mg PO BEDTIME 30 days amlodipine 5 mg PO DAILY 90 days Anoro Ellipta 62.5-25 mcg/actuation (umeclidinium-vilanterol) 1 inh inhalation DAILY NS cetirizine (Zyrtec) 10 mg PO DAILY PRN cholecalciferol (vitamin D3) 25 mcg PO DAILY 90 days cyclobenzaprine 5 mg PO BEDTIME PRN 30 days fentanyl 37.5 mcg/hour 1 patch transdermal Q72H 15 days fentanyl 37.5 mcg/hour 1 patch transdermal Q72H 15 days fluticasone furoate 27.5 mcg/actuation (Flonase Sensimist) 1 spray intranasal DAILY 30 days gabapentin 300 mg PO BID ipratropium-albuterol 0.5 mg-3 mg(2.5 mg base)/3 mL 3 mL inhalation Q6-8H PRN 30 days leuprolide acetate (6 month) (Eligard) 45 mg subcut [id number] lisinopril 40 mg PO DAILY 90 days montelukast 10 mg PO DAILY 90 days nebulizers (VixOne Nebulizer-Adult Mask) As directed omeprazole 20 mg PO DAILY sucralfate (Carafate) 10 mL PO Q6H 10 days Tobacco use date assessed: 05/06/25 Dental Screening Dental Screen Date: 05/06/25 HPI 1m follow up HPI Details History of Present Illness The patient is a 70-year-old male presenting for follow-up on chronic pain management and evaluation of acute respiratory symptoms. Failed Back Syndrome / Chronic Pain: - The patient has a history of failed back syndrome status post numerous back surgeries. - He was previously taking oxycodone 30 mg daily for pain. - He was transitioned to a fentanyl patch, which was slowly titrated up to the current dose of 37.5 mcg. - The patient reports that the current patch provides little relief and requested a higher dose. - explained to patient that I am only comfortable prescribing up to certain dosages, he is most welcome to go to Pain managements for further assistance Acute Bronchitis: - The patient reports being sick for over a week, starting last Friday. - Symptoms began as a cold and have persisted. - He reports producing phlegm, along with shivers and a fever that lasted for one day. - now hear himself wheeze and cough continue spiting out yellow sputum Medical History: - Failed back syndrome Surgical History: - Numerous back surgeries Problem List - Failed back syndrome - Acute bronchitis - Chronic pain management Plan - A prescription for azithromycin will be sent for acute bronchitis. - A prescription for prednisone will be sent for acute bronchitis./ wheezing - The patient was advised to continue using his inhalers. - The fentanyl 37.5 mcg patch prescription will be refilled. - The patient was counseled that the 37.5 mcg dose is the maximum that will be prescribed due to withdrawal risks and provider scope of practice. - The patient will return for a follow-up appointment in 4 weeks. - advised to stop smoking again Review of Systems - Neurological: No headaches no dizziness - Ear nose throat: No sore throat no hearing difficulty no ear pain - Cardiovascular: No syncope, no chest pain, no palpitations - Gastrointestinal: No nausea vomiting or diarrhea - Endocrine: No polyuria polydipsia no heat intolerance - Genitourinary: No dysuria , no blood in urine Physical Exam General: No acute distress HEENT: No acute findings Neck: Supple Respiratory system: Able to talk in full sentences, no audible wheeze, wheezing at this time Cardiovascular: S1-S2 regular in rate and rhythm Gastrointestinal: No pain Extremities: No new findings LIVESTOCK SPECULATOR: Alert awake oriented x3 motor intact Skin: Normal turgor PFSH Medical History Low libido Elevated PSA Arthritis Back pain Hx of radiation therapy HTN (hypertension) Colitis Colon cancer screening Nocturia Heartburn Muscle spasms of neck Pain management Opioid dependence Hypertension, essential GERD (gastroesophageal reflux disease) Smokers' cough Drug induced constipation COPD (chronic obstructive pulmonary disease) Tobacco abuse Asthma Failed back syndrome Surgical History H/O colonoscopy (~06/04/24) History of colonoscopy (04/10/10) History of rotator cuff surgery History of repair of laceration History of fusion of cervical spine History of laminectomy Family History Father HTN (hypertension) Lung cancer Mother HTN (hypertension) Dementia Breast cancer Maternal Grandmother No problems noted. Maternal Grandfather No problems noted. Paternal Grandfather No problems noted. Paternal Grandmother No problems noted. Brother Throat cancer Lung cancer Brother No problems noted. Daughter No problems noted. Daughter No problems noted. Sister Ovarian cancer Sister No problems noted. Sister No problems noted. Sister No problems noted. Maternal Aunt Breast cancer Social History Household Members: Family Housing: House Are you a primary wild animal caretaker to a significant other at home: No Do you presently have visiting nurse or other home services: No Alcohol intake: current Alcohol intake frequency: holidays/special occasions only Patient Tobacco Use Status: Current everyday Tobacco user Tobacco use type: Cigarette Cigarette Packs Per Day: 1.0 Cigarettes Per Day: 20.0 e-Cigarette/Vaping Use: Never Used service: No Current occupational status: disabled Cognitive needs: No Hearing needs: No Vision needs: Yes Questionnaire Thrive Questionnaire Date Thrive assessed: 01/07/25 I am a: Patient What is your living situation today?: I have a steady place to live Within the past 12 months, did the food you bought not last and you didn't have the money to get more?: I choose not to answer this question Within the past 12 months, did you worry whether your food would run out before you got money to buy more?: Never true Do you have trouble paying for medicines?: No Do you have trouble getting transportation to medical appointments?: Yes Do you have trouble paying your heating and electricity bill?: No Do you have trouble taking care of your child, family member or friend?: No Do you have trouble with day-to-day activities such as bathing, preparing meals, shopping, managing finances, etc.?: No Are you currently unemployed and looking for a job?: No Are you interested in more education?: No Please select the resources that you would like help with: None Currently or been in a relationship where the following occur: I choose not to answer THRIVE Score: 1 VIVIANA-7 AMB Questionnaire VIVIANA-7 Date VIVIANA - 7 assessed: 01/07/25 Source: Developed by Drs. Juan Motley, Blanca Manzo, Kelton Mooney and colleagues, with an educational homa from [employer]. Physical exam (Primary Care) Vital Signs: Last Vital Signs Pulse 69 09/06/25 09:42 Resp 16 09/06/25 09:42 BP 136/66 09/06/25 09:42 Pulse Ox 94 09/06/25 09:42 Oxygen Delivery Method Room Air 09/06/25 09:42 BMI result Body Mass Index 27.5 Tobacco/Smoking Status: Tobacco use Status Tobacco use date assessed 05/06/25 09/06/25 09:48 Patient Tobacco Use Status Current everyday Tobacco 09/06/25 09:48 Tobacco use type Cigarette 09/06/25 09:48 e-Cigarette/Vaping Use Never Used 09/06/25 09:48 Thrive Assessment: Date of Thrive Assessment Date Thrive assessed 01/07/25 09/06/25 09:48 Currently or been in a relationship where the following occur: I choose not to answer Coding Level of Care Code Est Pt Level 4 (22134) Diagnoses Acute bronchitis due to other specified organisms J20.8 Bronchitis organism: other organism Failed back syndrome M96.1 Uncomplicated opioid dependence F11.20 Substance use status: uncomplicated Assessment & Plan Assessment & Plan (1) Acute bronchitis: Code(s): J20.9 - Acute bronchitis, unspecified Category: Medical Qualifiers: Bronchitis organism: other organism Qualified Code(s): J20.8 - Acute bronchitis due to other specified organisms (2) Failed back syndrome: Code(s): M96.1 - Postlaminectomy syndrome, not elsewhere classified Category: Medical (3) Opioid dependence: Comment: CONTROLLED NATURE OF MEDICATION WAS DISCUSSED, IT IS IMPORTANT TO NOTIFY ME OF CHANGE OF PHARMACY, OR IF TRAVELING. DO NOT SHARE THE MEDICATION WITH ANYBODY, KEEP IT SAFE AWAY FROM THE HANDS OF SMALL CHILDREN, AND ONLY TAKE IT PRESCRIBED. THIS MEDICATION HAVE A TENDENCY TO BE ABUSED, HABIT-FORMING, AND IT CAN CAUSE SEVERE CONSTIPATION ALONG WITH OTHER ALLERGIC REACTIONS. LONG-TERM USE OF NARCOTIC MEDICATIONS HAVE SHOWN TO INCREASE SENSITIVITY TO PAIN. Code(s): F11.20 - Opioid dependence, uncomplicated Category: Medical Qualifiers: Substance use status: uncomplicated Qualified Code(s): F11.20 - Opioid dependence, uncomplicated Plan Failed Back Syndrome / Chronic Pain: - The patient has a history of failed back syndrome status post numerous back surgeries. - He was previously taking oxycodone 30 mg daily for pain. - He was transitioned to a fentanyl patch, which was slowly titrated up to the current dose of 37.5 mcg. - The patient reports that the current patch provides little relief and requested a higher dose. - explained to patient that I am only comfortable prescribing up to certain dosages, he is most welcome to go to Pain managements for further assistance Acute Bronchitis: - The patient reports being sick for over a week, starting last Friday. - Symptoms began as a cold and have persisted. - He reports producing phlegm, along with shivers and a fever that lasted for one day. - now hear himself wheeze and cough continue spiting out yellow sputum Medical History: - Failed back syndrome Surgical History: - Numerous back surgeries Problem List - Failed back syndrome - Acute bronchitis - Chronic pain management Plan - A prescription for azithromycin will be sent for acute bronchitis. - A prescription for prednisone will be sent for acute bronchitis./ wheezing - The patient was advised to continue using his inhalers. - The fentanyl 37.5 mcg patch prescription will be refilled. - The patient was counseled that the 37.5 mcg dose is the maximum that will be prescribed due to withdrawal risks and provider scope of practice. - The patient will return for a follow-up appointment in 4 weeks. - advised to stop smoking again Medications: New prednisone 20 mg PO DAILY 5 tabs 0RF 5 days azithromycin Take 2 tablets today then 1 daily 250 mg PO ONCE 6 tabs 0RF 5 days J06.9 - Acute upper respiratory infection, unspecified Changed From fentanyl 37.5 mcg/hour Partial Fill upon patient request. 1 patch transdermal Q72H 15 days 5 ea 0RF F11.20 - Opioid dependence, uncomplicated, M96.1 - Postlaminectomy syndrome, not elsewhere classified To fentanyl 37.5 mcg/hour Partial Fill upon patient request. 1 patch transdermal Q72H 10 ea 0RF 30 days F11.20 - Opioid dependence, uncomplicated, M96.1 - Postlaminectomy syndrome, not elsewhere classified
--- OUTSIDE RECORDS SUMMARY | 2025-09-06 11:03 | XMS_ITS | Patient Health Record ---
Author Organization [facility] Address [address] [place] [address] Care Team Providers Care Lease Picker Name Role Phone Juan Irwin Unavailable [phone] Reason For Referral No Information Plan Of Treatment No Information
--- OUTSIDE RECORDS SUMMARY | 2025-09-06 11:04 | XMS_ITS | Patient Health Record ---
[facility] Address [address] [place] [address] Care Team Providers Care Logistics System Engineer Name Role Phone Chuck VEGA, [facility] Primary Care Provider Talha Sanabria Unavailable [phone] Allergies No Known Allergies Reason For Referral No Information Medications Medication SIG (Take, Route, Fr equency, Duration) Notes Start Date End Date Status Montelukast Sodium A ctive amLODIPine Besylate Active Lisinopril Active Finasteride Active Omeprazole Active Gabapentin Active oxyCODONE HCl Active Anoro Ellipta Active Ciclopirox 0.77 % 1 application Gasoline Tractor Operator ally Twice a day; Duration: 365 days [...] Risk Notes Problem Fungal infection of nail (275200760) Fungal infection of nail (B35.1) Active confirmed Rx management (4) Encounters Encounter Location Date Provider Diagnosis [facility] [address] [place] [address] 09/21/2024 [facility] [address] [place] [address] 10/12/2024 Talha Soto Plan Of Treatment No Information Insurance Providers Payer Name Payer Address Payer Phone Subscriber Number Group Number Insured Name Patient Relationship to Insured Coverage Start Date Coverage End Date [facility] [employer] Claims [address] [place] [address] [id number] Daryn Duncan Self - patient is the insured Medical (General) History Medical History History ICD Code Arthritis asthma Back,Hip,and Knee pain Cancer Hypertension Stomach ulcer Measles Chicken pox Joint implants/screws Surgical History Surgery Date(Month/Year) neck surgery Lower back surgery shoulder surgery
== END 2025-09-06 10:17 | disposition home or self-care (01) ==
LOC: HO.HMCC 09:35
PROVIDERS: PCP Internal Medicine; Visit Provider Internal Medicine
DX: J20.8 Acute bronchitis due to other specified organisms (principal); M96.1 Postlaminectomy syndrome, not elsewhere classified; F11.20 Opioid dependence, uncomplicated

== ENCOUNTER → 2025-09-06 09:34 | Outpatient (BNVA) | payer MEDICARE, MEDICAID, SELFPAY | PROVIDERS: PCP Internal Medicine; Visit Provider Internal Medicine | DX: J20.8 Acute bronchitis due to other specified organisms (principal); M96.1 Postlaminectomy syndrome, not elsewhere classified; F11.20 Opioid dependence, uncomplicated; F17.200 Nicotine dependence, unspecified, uncomplicated; Z71.6 Tobacco abuse counseling | CPT/HCPCS: 99212 ==

== ENCOUNTER 2025-09-20 10:36 | Outpatient (AMB) | payer MEDICARE, MEDICAID, SELFPAY ==
--- OUTSIDE RECORDS SUMMARY | 2024-09-21 09:00 | XMS_ITS ---
Author Organization [facility] Address [address] [place] [address] Care Team Providers Care Certified Physical Therapist Assistant Name Role Phone Chuck VEGA, Lloyd Primary Care Provider Unavailabl Talha Bess Unavailable [phone] Medications Medication SIG (Take, Route, Fr equency, Duration) Notes Start Date End Date Status Montelukast Sodium A ctive amLODIPine Besylate Active Anoro Ellipta Active Ciclopirox 0.77 % 1 application Hull Builder ally Twice a day; Duration: 365 days Active Vitamin D3 Active Lisinopril Active Finasteride Active Omeprazole Active Gabapentin Active oxyCODONE HCl Active Encounters Encounter Location Date Provider Diagnosis [address] [address] 09/21/2024 Talha Soto Plan Of Treatment No Information Progress Notes * Daryn DUNCANDOB: [birth year] (70 yo M)Acc No.[id number]:09/21/2024 Progress Note Patient: Daryn WHITEHEAD Provider: Sly Soto DPM :1955 A ge:69 Y S ex:Male Date:09/21/2024 Address:[address] [id number] Pcp:Lloyd Woods MD Subjective: * Chief Complaints: [...] Date: 11/21/2023 Generated for Tiara solis/Stormy/Tiffanie on: 11/20/2024 12:12 PM EST
--- OUTSIDE RECORDS SUMMARY | 2024-10-12 09:15 | XMS_ITS ---
Author Organization [facility] Address [address] [place] [address] Care Team Providers Care Automotive Software Engineer Name Role Phone Chuck VEGA, Lloyd Primary Care Provider Unavailabl Talha Bess Unavailable [phone] Encounters Encounter Location Date Provider Diagnosis [address] [address] 10/12/2024 Talha Soto Plan Of Treatment No Information Progress Notes * Daryn DUNCANDOB: [birth year] (70 yo M)Acc No.[id number]:10/12/2024 Progress Note Patient: Daryn WHITEHEAD Provider: Sly Soto DPM :1955 A ge:69 Y S ex:Male Date:10/12/2024 [facility] Pcp:Lloyd Woods MD Subjective: * Chief Complaints: * * Medical History: Objective: * Vitals: Assessment: Plan: * Treatment: * Images: * The named appointment provid er may or may not be the originator of this progress note, and it is not deemed complete until electronically signed by the appointment provider. Sign off status: Pending * Provider: Sly Soto DPM Date: 12/13/2023 Generated for Tiara ng/Fakarishmag/eTransmitting on: 11/20/2024 12:12 PM EST
[2025-09-20 10:40] VITALS: BP 110/72; PULSE 74; TEMP 36.2; O2SAT 95; BMI 27.4
--- NOTE | 2025-09-20 10:40 | AM.OFFWIN_ITS ---
Intake Vital Signs 09/20/25 10:40 Height 5 ft 7 in Weight 175 lb BMI 27.4 BP 110/72 Blood Pressure Location Lt brachial Position Sitting Pulse 74 Pulse Source Pulse Oximeter Temp 97.2 F Temp Source Oral Pulse Oximetry (%) 95 Oxygen Delivery Method Room Air Intake Visit Reasons: EP-headaches, nauseas, blurry vision, dizziness Intake Note: pt presents with worsening and more frequent headache, ongoing blurry vision and dizziness Patient Tobacco Use Status: Current everyday Tobacco user Allergies No Known Allergies Allergy (Verified 09/20/25 10:45) Medication List - Last Reconciled 09/20/25 by Lloyd Woods MD albuterol sulfate 90 mcg/actuation 2 puffs inhalation Q4-6H PRN amitriptyline 25 mg PO BEDTIME 30 days amlodipine 5 mg PO DAILY 90 days Anoro Ellipta 62.5-25 mcg/actuation (umeclidinium-vilanterol) 1 inh inhalation DAILY NS azithromycin 250 mg PO ONCE 5 days cetirizine (Zyrtec) 10 mg PO DAILY PRN cholecalciferol (vitamin D3) 25 mcg PO DAILY 90 days cyclobenzaprine 5 mg PO BEDTIME PRN 30 days fentanyl 37.5 mcg/hour 1 patch transdermal Q72H 15 days fentanyl 37.5 mcg/hour 1 patch transdermal Q72H 30 days fluticasone furoate 27.5 mcg/actuation (Flonase Sensimist) 1 spray intranasal DAILY 30 days gabapentin 300 mg PO BID ipratropium-albuterol 0.5 mg-3 mg(2.5 mg base)/3 mL 3 mL inhalation Q6-8H PRN 30 days leuprolide acetate (6 month) (Eligard) 45 mg subcut [id number] lisinopril 40 mg PO DAILY 90 days montelukast 10 mg PO DAILY 90 days nebulizers (VixOne Nebulizer-Adult Mask) As directed omeprazole 20 mg PO DAILY prednisone 20 mg PO DAILY 5 days sucralfate (Carafate) 10 mL PO Q6H 10 days Do you need a note to return to daycare/school/sports/work: No HPI EP-headaches, nauseas, blurry vision, dizziness HPI Details History of Present Illness The patient is a 70-year-old male presenting with recurrent headaches and blurry vision. Migraine with aura: - The patient reports frequent, recurren t headaches, stating they are too numerous to count per month. - The current episode started yesterday. - Associated symptoms include blurry vis ion and nausea. - The patient was previously prescribed amitriptyline for migraine prevention but reports not taking it, stating he does not remember picking it up from the pharmacy. Problem List - Migraine Plan - The symptoms of headache, blurry visio n, and nausea are consistent with a diagnosis of migraine. - A prescription for amitriptyline will be sent to the pharmacy for migraine prophylaxis, to be taken every night. - A prescription for sumatriptan will be sent to the pharmacy for acute treatment of migraines, with instructions to take one tablet at the onset of symptoms. - The patient attempted to schedule an o phthalmology appointment but could not be seen until November. Review of Systems - General: No fever no chills - Ear nose throat: No sore throat no hearing difficulty no ear pain - Cardiovascular: No syncope, no chest pain, no palpitations - Gastrointestinal: No nausea vomiting or diarrhea Physical Exam General: No acute distress HEENT: Pupils are equal, no problem with light Neck: Supple Respiratory system: Able to talk in full sentences, no audible wheeze Extremities: No new findings CAFETERIA COOK: Alert awake oriented x3 motor intact Skin: Normal turgor PFSH Medical History Low libido Elevated PSA Arthritis Back pain Hx of radiation therapy HTN (hypertension) Colitis Colon cancer screening Nocturia Heartburn Muscle spasms of neck Pain management Opioid dependence Hypertension, essential GERD (gastroesophageal reflux disease) Smokers' cough Drug induced constipation COPD (chronic obstructive pulmonary disease) Tobacco abuse Asthma Failed back syndrome Surgical History H/O colonoscopy (~06/04/24) History of colonoscopy (04/10/10) History of rotator cuff surgery History of repair of laceration History of fusion of cervical spine History of laminectomy Family History Father HTN (hypertension) Lung cancer Mother HTN (hypertension) Dementia Breast cancer Maternal Grandmother No problems noted. Maternal Grandfather No problems noted. Paternal Grandfather No problems noted. Paternal Grandmother No problems noted. Brother Throat cancer Lung cancer Brother No problems noted. Daughter No problems noted. Daughter No problems noted. Sister Ovarian cancer Sister No problems noted. Sister No problems noted. Sister No problems noted. Maternal Aunt Breast cancer Social History Household Members: Family Housing: House Are you a primary transition of care specialist to a significant other at home: No Do you presently have visiting nurse or other home services: No Alcohol intake: current Alcohol intake frequency: holidays/special occasions only Patient Tobacco Use Status: Current everyday Tobacco user Tobacco use type: Cigarette Cigarette Packs Per Day: 1.0 Cigarettes Per Day: 20.0 e-Cigarette/Vaping Use: Never Used service: No Current occupational status: disabled Cognitive needs: No Hearing needs: No Vision needs: Yes Physical Exam Vital Signs: Last Vital Signs Temp 97.2 F 09/20/25 10:40 Pulse 74 09/20/25 10:40 BP 110/72 09/20/25 10:40 Pulse Ox 95 09/20/25 10:40 Oxygen Delivery Method Room Air 09/20/25 10:40 BMI result Body Mass Index 27.4 Assessment & Plan Assessment & Plan (1) Migraine with aura: Code(s): G43.109 - Migraine with aura, not intractable, without status migrainosus Qualifiers: Status migrainosus presence: without status migrainosus Intractability: not intractable Qualified Code(s): G43.109 - Migraine with aura, not intractable, without status migrainosus Plan Migraine with aura: - The patient reports frequent, recurrent headaches, stating they are too numerous to count per month. - The current episode started yesterday. - Associated symptoms include blurry vision and nausea. - The patient was previously prescribed amitriptyline for migraine prevention but reports not taking it, stating he does not remember picking it up from the pharmacy. Problem List - Migraine Plan - The symptoms of headache, blurry vision, and nausea are consistent with a diagnosis of migraine. - A prescription for amitriptyline will be sent to the pharmacy for migraine prophylaxis, to be taken every night. - A prescription for sumatriptan will be sent to the pharmacy for acute treatment of migraines, with instructions to take one tablet at the onset of symptoms. - The patient attempted to schedule an ophthalmology appointment but could not be seen until November. Medications: New sumatriptan succinate 50 mg PO .qd PRN 14 tabs 0RF migraine headache 30 days Refilled amitriptyline 25 mg PO BEDTIME 30 tabs 0RF headache prevention 30 days Coding Level of Care Code Est Pt Level 3 (22427) Diagnoses Migraine with aura and without status migrainosus, not intractable G43.109 Status migrainosus presence: without status migrainosus Intractability: not intractable
--- OUTSIDE RECORDS SUMMARY | 2025-09-20 12:12 | XMS_ITS | Patient Health Record ---
[facility] Address [address] [place] [address] Care Team Providers Care Certified Wellness Program Coordinator Name Role Phone [facility] Primary [facility] Provider Talha Sanabria Unavailable [phone] Allergies No Known Allergies Reason For Referral No Information Medications Medication SIG (Take, Route, Fr equency, Duration) Notes Start Date End Date Status Montelukast Sodium A ctive amLODIPine Besylate Active Lisinopril Active Finasteride Active Omeprazole Active Gabapentin Active oxyCODONE HCl Active Anoro Ellipta Active Ciclopirox 0.77 % 1 application Trailer Rental Clerk ally Twice a day; Duration: 365 days [...] Risk Notes Problem Fungal infection of nail ([id number]) Fungal infection of nail (B35.1) Active confirmed Rx management (4) Encounters Encounter Location Date Provider Diagnosis [facility] [address] [place] [address] 09/21/2024 [facility] [address] [place] [address] 10/12/2024 Talha Soto Plan Of Treatment No Information Insurance Providers Payer Name Payer Address Payer Phone Subscriber Number Group Number Insured Name Patient Relationship to Insured Coverage Start Date Coverage End Date [facility] S[employer] Claims [address] [place] [address] [id number] Daryn Duncan Self - patient is the insured Medical (General) History Medical History History ICD Code Arthritis asthma Back,Hip,and Knee pain Cancer Hypertension Stomach ulcer Measles Chicken pox Joint implants/screws Surgical History Surgery Date(Month/Year) neck surgery Lower back surgery shoulder surgery
--- OUTSIDE RECORDS SUMMARY | 2025-09-20 12:12 | XMS_ITS | Patient Health Record ---
Author Organization [facility] Address [address] [place] [address] Care Team Providers Care Range Scientist Name Role Phone Juan Irwin Unavailable [phone] Reason For Referral No Information Plan Of Treatment No Information
== END 2025-09-20 10:55 | disposition home or self-care (01) ==
PROVIDERS: PCP Internal Medicine; Visit Provider Internal Medicine
DX: G43.109 Migraine with aura, not intractable, without status migrainosus (principal)

== ENCOUNTER → 2025-09-20 10:36 | Outpatient (BNVA) | payer MEDICARE, MEDICAID, SELFPAY | PROVIDERS: PCP Internal Medicine; Visit Provider Internal Medicine | DX: G43.109 Migraine with aura, not intractable, without status migrainosus (principal) | CPT/HCPCS: 99212 ==

== ENCOUNTER 2025-10-05 09:10 | Outpatient (REF) | payer MEDICARE, MEDICAID, SELFPAY ==
[2025-10-05 15:42] LABS: Cannabinoid Screen Urine Not Detected (Not Detect)
[2025-10-10 09:03] LABS: Codeine, Ur Negative
[2025-10-10 09:04] LABS: Hydrocodone, Ur Negative
[2025-10-10 09:05] LABS: Morphine, Ur Negative; Norhydrocodone, Ur Negative
[2025-10-10 09:06] LABS: Oxycodone, Ur 132
[2025-10-10 09:08] LABS: Hydromorphone, Ur Negative
[2025-10-10 09:10] LABS: Noroxycodone, Ur 661
[2025-10-10 09:11] LABS: Oxymorphone, Ur 60
== END 2025-10-05 09:11 | disposition home or self-care (01) ==
LOC: HO.LNP 09:10
PROVIDERS: PCP Internal Medicine; Visit Provider Internal Medicine
DX: M96.1 Postlaminectomy syndrome, not elsewhere classified (principal); F11.20 Opioid dependence, uncomplicated; G89.29 Other chronic pain; J44.9 Chronic obstructive pulmonary disease, unspecified; K59.09 Other constipation; G43.109 Migraine with aura, not intractable, without status migrainosus; J41.8 Mixed simple and mucopurulent chronic bronchitis; F17.210 Nicotine dependence, cigarettes, uncomplicated; M62.838 Other muscle spasm; Z91.09 Other allergy status, other than to drugs and biological substances; Z79.899 Other long term (current) drug therapy
CPT/HCPCS: 80307; 80365; 99212; G0480

== ENCOUNTER 2025-10-05 09:10 | Outpatient (AMB) | payer MEDICARE, MEDICAID, SELFPAY ==
--- OUTSIDE RECORDS SUMMARY | 2024-09-21 09:00 | XMS_ITS ---
Author Organization [facility] Address [address] [place] [address] Care Team Providers Care Byproducts Pump Operator Name Role Phone Chuck VEGA, Lloyd Primary Care Provider Unavailabl Talha Bess Unavailable [phone] Medications Medication SIG (Take, Route, Fr equency, Duration) Notes Start Date End Date Status Montelukast Sodium A ctive amLODIPine Besylate Active Anoro Ellipta Active Ciclopirox 0.77 % 1 application Mail List Processor ally Twice a day; Duration: 365 days Active Vitamin D3 Active Lisinopril Active Finasteride Active Omeprazole Active Gabapentin Active oxyCODONE HCl Active Encounters Encounter Location Date Provider Diagnosis [address] [address] 09/21/2024 Talha Soto Plan Of Treatment No Information Progress Notes * Daryn DUNCANDOB: [birth year] (70 yo M)Acc No.[id number]:09/21/2024 Progress Note Patient: Daryn WHITEHEAD Provider: Sly Soto DPM :1955 A ge:69 Y S ex:Male Date:09/21/2024 Address:[address] [id number] Pcp:Lloyd Woods MD Subjective: * Chief Complaints: [...] Soto DPM Date: 11/21/2023 Generated for Tiara Wick/Tiffanie on: 12/05/2024 10:02 AM EST
--- OUTSIDE RECORDS SUMMARY | 2024-10-12 09:15 | XMS_ITS ---
Author Organization [facility] Address [address] [place] [address] Care Team Providers Care Neonatal Pediatric Nurse Name Role Phone Chuck VEGA, Lloyd Primary Care Provider Unavailabl Talha Bess Unavailable [phone] Encounters Encounter Location Date Provider Diagnosis [facility] [address] [place] [address] 10/12/2024 Talha Soto Plan Of Treatment No Information Progress Notes * Daryn DUNCANDOB: [birth year] (70 yo M)Acc No.[id number]:10/12/2024 Progress Note Patient: Daryn WHITEHEAD Provider: Sly Soto DPM :1955 A ge:69 Y S ex:Male Date:10/12/2024 [facility] Pcp:Lloyd Woods MD Subjective: * Chief Complaints: [...] Date: 12/13/2023 Generated for Tiara solis/Stormy/eTransmitting on: 12/05/2024 10:02 AM EST
[2025-10-05 09:15] VITALS: BP 118/74; PULSE 76; O2SAT 97; BMI 27.2
--- NOTE | 2025-10-05 09:15 | A.OFFPC_ITS ---
Vital Signs 10/05/25 09:15 Height 5 ft 7 in Weight 174 lb BMI 27.2 BP 118/74 Blood Pressure Location Lt brachial Position Sitting Pulse 76 Pulse Source Pulse Oximeter Pulse Oximetry (%) 97 Intake Visit Reasons: 1m follow up Allergies No Known Allergies Allergy (Verified 10/05/25 09:16) Medication List - Last Reconciled 10/05/25 by Lloyd Woods MD albuterol sulfate 90 mcg/actuation 2 puffs inhalation Q4-6H PRN amitriptyline 25 mg PO BEDTIME 30 days amlodipine 5 mg PO DAILY 90 days Anoro Ellipta 62.5-25 mcg/actuation (umeclidinium-vilanterol) 1 inh inhalation DAILY NS cetirizine (Zyrtec) 10 mg PO DAILY PRN cholecalciferol (vitamin D3) 25 mcg PO DAILY 90 days fentanyl 37.5 mcg/hour 1 patch transdermal Q72H 30 days fluticasone furoate 27.5 mcg/actuation (Flonase Sensimist) 1 spray intranasal DAILY 30 days gabapentin 300 mg PO BID ipratropium-albuterol 0.5 mg-3 mg(2.5 mg base)/3 mL 3 mL inhalation Q6-8H PRN 30 days leuprolide acetate (6 month) (Eligard) 45 mg subcut [id number] lisinopril 40 mg PO DAILY 90 days montelukast 10 mg PO DAILY 90 days nebulizers (VixOne Nebulizer-Adult Mask) As directed omeprazole 20 mg PO DAILY sucralfate (Carafate) 10 mL PO Q6H 10 days sumatriptan succinate 50 mg PO .qd PRN 30 days Tobacco use date assessed: 05/06/25 Fall risk assessment: No Falls in past year Last assessed Fall Risk: 10/05/25 Dental Screening Dental Screen Date: 05/06/25 HPI HPI Comments History of Present Illness Details History of Present Illness The patient is a 70 year old individual presenting for a follow-up visit for chronic pain management and medication refills. Failed back surgery syndrome: - The patient has a history of failed ba ck surgery syndrome following numerous lumbar and cervical spine surgeries. - The patient reports that the current t reatment with a 37.5 mcg Fentanyl patch is working effectively. - The patient is also taking Soma. Chronic Obstructive Pulmonary Disease: - The patient has a diagnosis of COPD an d continues to smoke despite being advised to quit. - The patient is under the care of a pul monary specialist, Dr. Amaya. - Current management includes an oral El lipta inhaler and ipratropium updraft treatments as needed. Chronic Constipation: - The patient has a history of chronic c onstipation which is reportedly unchanged and not bothersome. - The patient has a prescribed medicatio n for this condition but is non- adherent, stating a dislike for it. - The patient admits to straining during bowel movements. Headaches: - The patient's headaches are reported t o be stable with the use of sumatriptan and amitriptyline. Medical History: - Failed back surgery syndrome - Chronic Obstructive Pulmonary Disease (COPD) - Headaches, stable - Chronic constipation Medications: - Fentanyl patch 37.5 mcg for failed kay k surgery syndrome - Soma - Oral Ellipta inhaler for COPD - Ipratropium updraft treatments as need ed for COPD - Sumatriptan for headaches - Amitriptyline for headaches - An unspecified medication for constipa tion, which the patient does not take Social History: - Tobacco Use: The patient is an active smoker. Diagnostic Results: - Administrative: The patient's pain con tract from January was reviewed and is up to date. [facility] Medical History Low libido Elevated PSA Arthritis Back pain Hx of radiation therapy HTN (hypertension) Colitis Colon cancer screening Nocturia Heartburn Muscle spasms of neck Pain management Opioid dependence Hypertension, essential GERD (gastroesophageal reflux disease) Smokers' cough Drug induced constipation COPD (chronic obstructive pulmonary disease) Tobacco abuse Asthma Failed back syndrome Surgical History H/O colonoscopy (~06/04/24) History of colonoscopy (04/10/10) History of rotator cuff surgery History of repair of laceration History of fusion of cervical spine History of laminectomy Family History Father HTN (hypertension) Lung cancer Mother HTN (hypertension) Dementia Breast cancer Maternal Grandmother No problems noted. Maternal Grandfather No problems noted. Paternal Grandfather No problems noted. Paternal Grandmother No problems noted. Brother Throat cancer Lung cancer Brother No problems noted. Daughter No problems noted. Daughter No problems noted. Sister Ovarian cancer Sister No problems noted. Sister No problems noted. Sister No problems noted. Maternal Aunt Breast cancer Social History Household Members: Family Housing: House Are you a primary human services care specialist to a significant other at home: No Do you presently have visiting nurse or other home services: No Alcohol intake: current Alcohol intake frequency: holidays/special occasions only Patient Tobacco Use Status: Current everyday Tobacco user Tobacco use type: Cigarette Cigarette Packs Per Day: 1.0 Cigarettes Per Day: 20.0 e-Cigarette/Vaping Use: Never Used service: No Current occupational status: disabled Cognitive needs: No Hearing needs: No Vision needs: Yes Questionnaire Thrive Questionnaire Date Thrive assessed: 01/07/25 I am a: Patient What is your living situation today?: I have a steady place to live Within the past 12 months, did the food you bought not last and you didn't have the money to get more?: I choose not to answer this question Within the past 12 months, did you worry whether your food would run out before you got money to buy more?: Never true Do you have trouble paying for medicines?: No Do you have trouble getting transportation to medical appointments?: Yes Do you have trouble paying your heating and electricity bill?: No Do you have trouble taking care of your child, family member or friend?: No Do you have trouble with day-to-day activities such as bathing, preparing meals, shopping, managing finances, etc.?: No Are you currently unemployed and looking for a job?: No Are you interested in more education?: No Please select the resources that you would like help with: None Currently or been in a relationship where the following occur: I choose not to answer THRIVE Score: 1 VIVIANA-7 AMB Questionnaire VIVIANA-7 Date VIVIANA - 7 assessed: 01/07/25 Source: Developed by Drs. Juan Motley, Blanca Manzo, Kelton Mooney and colleagues, with an educational homa from [employer]. Review of Systems Narrative Review of Systems - General: No fever no chills - Neurological: No headaches no dizziness - Ear nose throat: No sore throat no hearing difficulty no ear pain - Cardiovascular: No syncope, no chest pain, no palpitations - Gastrointestinal: No nausea vomiting or diarrhea - Endocrine: No polyuria polydipsia no heat intolerance - Genitourinary: No dysuria , no blood in urine Physical exam (Primary Care) Vital Signs: Last Vital Signs Pulse 76 10/05/25 09:15 BP 118/74 10/05/25 09:15 Pulse Ox 97 10/05/25 09:15 BMI result Body Mass Index 27.2 Tobacco/Smoking Status: Tobacco use Status Tobacco use date assessed 05/06/25 10/05/25 09:16 Patient Tobacco Use Status Current everyday Tobacco 10/05/25 09:16 Tobacco use type Cigarette 10/05/25 09:16 e-Cigarette/Vaping Use Never Used 10/05/25 09:16 Thrive Assessment: Date of Thrive Assessment Date Thrive assessed 01/07/25 10/05/25 09:16 Currently or been in a relationship where the following occur: I choose not to answer Narrative Physical Exam - General: No acute distress - HEENT: No acute findings - Neck: Supple - Respiratory system: Able to talk in full sentences, no audible wheeze - Cardiovascular: S1-S2 regular in rate and rhythm - Gastrointestinal: No pain - Extremities: No new findings - ELECTRIC MOTOR REPAIR SUPERVISOR: Alert awake oriented x3 motor intact - Skin: Normal turgor Coding Level of Care Code Est Pt Level 4 (59183) Diagnoses Uncomplicated opioid dependence F11.20 Substance use status: uncomplicated Failed back syndrome M96.1 Migraine with aura and without status migrainosus, not intractable G43.109 Status migrainosus presence: without status migrainosus Intractability: not intractable Mixed simple and mucopurulent chronic bronchitis 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 DO NOT SHARE THE MEDICATION WITH ANYBODY, KEEP IT SAFE AWAY FROM THE HANDS OF SMALL CHILDREN, AND ONLY TAKE IT PRESCRIBED. THIS MEDICATION HAVE A TENDENCY TO BE ABUSED, HABIT-FORMING, AND IT CAN CAUSE SEVERE CONSTIPATION ALONG WITH OTHER ALLERGIC REACTIONS. LONG-TERM USE OF NARCOTIC MEDICATIONS HAVE SHOWN TO INCREASE SENSITIVITY TO PAIN. Code(s): F11.20 - Opioid dependence, uncomplicated Category: Medical Qualifiers: Substance use status: uncomplicated Qualified Code(s): F11.20 - Opioid dependence, uncomplicated (2) Failed back syndrome: Code(s): M96.1 - Postlaminectomy syndrome, not elsewhere classified Category: Medical (3) Migraine with aura: Code(s): G43.109 - Migraine with aura, not intractable, without status migrainosus Category: Medical Qualifiers: Status migrainosus presence: without status migrainosus Intractability: not intractable Qualified Code(s): G43.109 - Migraine with aura, not intractable, without status migrainosus (4) COPD (chronic obstructive pulmonary disease): Code(s): J44.9 - Chronic obstructive pulmonary disease, unspecified Category: Medical Qualifiers: COPD type: chronic bronchitis Chronic bronchitis type: mixed simple and mucopurulent Qualified Code(s): J41.8 - Mixed simple and mucopurulent chronic bronchitis (5) Nicotine dependence: Code(s): F17.200 - Nicotine dependence, unspecified, uncomplicated Category: Medical Qualifiers: Nicotine product type: cigarettes Substance use status: uncomplicated Qualified Code(s): F17.210 - Nicotine dependence, cigarettes, uncomplicated (6) Pain management: Code(s): R52 - Pain, unspecified Category: Medical (7) Muscle spasms of neck: Code(s): M62.838 - Other muscle spasm Category: Medical (8) Environmental allergies: Code(s): Z91.09 - Other allergy status, other than to drugs and biological substances Category: Medical Plan Problem List - Failed back surgery syndrome - Chronic Obstructive Pulmonary Disease (COPD) - Tobacco use disorder - Chronic constipation - Headaches - Medication management Plan - A urine sample will be collected for a drug screen today. - Refills for Soma and the Fentanyl patch will be sent to the pharmacy. - Counseled the patient on the risk of developing hemorrhoids from straining during bowel movements and encouraged the use of prescribed medication for constipation. - The patient was again advised to stop smoking. - The patient is to follow up on Mannie 30th. Orders: Orders Drug Screen Urine Today F11.20 - Opioid dependence, uncomplicated, M96.1 - Postlaminectomy syndrome, not elsewhere classified Fentanyl, urine Today F11.20 - Opioid dependence, uncomplicated, M96.1 - Postlaminectomy syndrome, not elsewhere classified Opiates GCMS Expanded, Ur Today F11.20 - Opioid dependence, uncomplicated, M96.1 - Postlaminectomy syndrome, not elsewhere classified Medications: Refilled fentanyl 37.5 mcg/hour Partial Fill upon patient request. 1 patch transdermal Q72H 10 ea 0RF 30 days F11.20 - Opioid dependence, uncomplicated, M96.1 - Postlaminectomy syndrome, not elsewhere classified gabapentin 300 mg PO BID 60 caps 0RF
--- OUTSIDE RECORDS SUMMARY | 2025-10-05 10:02 | XMS_ITS | Clinical Summary ---
Author Organization [facility] Address [address] [place] [phone] Phone Care Team Providers Care Tap Dancer Name Role Phone Lloyd Woods MD Primary Care Provider Allergies No known active allergies Medications No known medications Active Problems No known active problems Medical History Medical History Date Comments COPD (chronic obstructive pu lmonary disease) ([facility] V24, [facility] V28) DX:COPD (chronic o bstructive pulmonary disease) ([facility]) GERD (gastroesophageal reflux disease) DX:GERD (gastroesophageal reflux disease) Heart burn DX:Heart burn Drug induced constipation DX:Jair g induced constipation Failed back syndrome DX:Failed b ack syndrome Muscle spasm DX:Muscle spasm Essential (primary) hypertension DX:Essential (primary) hypertension Opioid dependence ([facility] V 24, [facility] V28) DX:Opioid dependence ([facility]) Prostate cancer ([facility] V24 , [facility] V28) Social History [...] 2025 , 10/09/2021, 10/01/2019, Additional history exists RSV Immunization Adult Patients (1 - 1-dose [...] on patient's age to complete this topic Insurance MEDICARE MEDICAID - [place] Care Teams Tap Dancer Relationship Specialty Start Date End Date Lloyd Woods MD [address] [place] [phone] PCP - General Internal Medicine 12/23/11
--- OUTSIDE RECORDS SUMMARY | 2025-10-05 10:02 | XMS_ITS | Patient Health Record ---
Author Organization [facility] Address [address] [place] [address] Care Team Providers Care Fabric Sourcer Name Role Phone Juan Irwin Unavailable [phone] Reason For Referral No Information Plan Of Treatment No Information
--- OUTSIDE RECORDS SUMMARY | 2025-10-05 10:03 | XMS_ITS | Patient Health Record ---
Author Organization [facility] Liz april Onley Address [address] [place] [address] Care Team Providers Care Fiberglass Roller Name Role Phone Chuck VEGA, [facility] Primary Care Provider Talha Sanabria Unavailable [phone] Allergies No Known Allergies Reason For Referral No Information Medications Medication SIG (Take, Route, Fr equency, Duration) Notes Start Date End Date Status Montelukast Sodium A ctive amLODIPine Besylate Active Lisinopril Active Finasteride Active Omeprazole Active Gabapentin Active oxyCODONE HCl Active Anoro Ellipta Active Ciclopirox 0.77 % 1 application Water Resource Agent ally Twice a day; Duration: 365 days [...] Risk Notes Problem Fungal infection of nail ([id number]) Fungal infection of nail (B35.1) Active confirmed Rx management (4) Encounters Encounter Location Date Provider Diagnosis [facility] [address] [place] [address] 10/12/2024 Talha Soto Plan Of Treatment No Information Insurance Providers Payer Name Payer Address Payer Phone Subscriber Number Group Number Insured Name Patient Relationship to Insured Coverage Start Date Coverage End Date [facility] SCO Claims [address] [facility] [place] [id number] Daryn Duncan Self - patient is the insured Medical (General) History Medical History History ICD Code Arthritis asthma Back,Hip,and Knee pain Cancer Hypertension Stomach ulcer Measles Chicken pox Joint implants/screws Surgical History Surgery Date(Month/Year) neck surgery Lower back surgery shoulder surgery
== END 2025-10-05 09:37 | disposition home or self-care (01) ==
LOC: HO.HMCC 09:11
PROVIDERS: PCP Internal Medicine; Visit Provider Internal Medicine
DX: F11.20 Opioid dependence, uncomplicated (principal); M96.1 Postlaminectomy syndrome, not elsewhere classified; G43.109 Migraine with aura, not intractable, without status migrainosus; J41.8 Mixed simple and mucopurulent chronic bronchitis; F17.210 Nicotine dependence, cigarettes, uncomplicated; R52 Pain, unspecified; M62.838 Other muscle spasm; Z91.09 Other allergy status, other than to drugs and biological substances

== ENCOUNTER 2025-10-20 14:26 | Outpatient (REF) | payer MEDICARE, MEDICAID, SELFPAY ==
--- NOTE | ~2025-10-20 | XR_ITS ---
EXAMINATION: XR TOES, RIGHT CLINICAL INFORMATION: S90.121A - Contusion of right lesser toe(s) without damage to nail, init... COMPARISON: None available. TECHNIQUE: 3 views of the right toes were obtained. FINDINGS: There is an acute fracture of the distal metaphysis of the proximal phalanx of the fifth digit. There is minimal displacement. There is no angulation. There appears to be intra-articular extension. There is trace impaction of approximately 2 mm. No articular step off. No additional fractures or dislocations. 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 Soft tissue swelling of the fifth digit. XR/XR toe RT min 2V IMPRESSION: 1. Minimally displaced intra-articular distal metaphyseal fracture of the proximal phalanx, fifth digit. Electronically signed by: Haim Fitch MD 10/20/2025 03:44 PM KATERY[facility]
== END 2025-10-20 14:27 | disposition home or self-care (01) ==
LOC: HO.HMGCX 14:26
PROVIDERS: PCP Internal Medicine; Visit Provider Nurse Practitioner Family
DX: S90.121A Contusion of right lesser toe(s) without damage to nail, initial encounter (principal); W01.0XXA Fall on same level from slipping, tripping and stumbling without subsequent striking against object, initial encounter
CPT/HCPCS: 73660; 99212

== ENCOUNTER 2025-10-20 14:26 | Outpatient (AMB) | payer MEDICARE, MEDICAID, SELFPAY ==
--- OUTSIDE RECORDS SUMMARY | 2024-09-21 09:00 | XMS_ITS ---
Author Organization [facility] Address [address] [place] [address] Care Team Providers Care Telescope Repairer Name Role Phone Chuck VEGA, Lloyd Primary Care Provider Unavailabl Talha Bess Unavailable [phone] Medications Medication SIG (Take, Route, Fr equency, Duration) Notes Start Date End Date Status Montelukast Sodium A ctive amLODIPine Besylate Active Anoro Ellipta Active Ciclopirox 0.77 % 1 application Furnace Combustion Tester ally Twice a day; Duration: 365 days Active Vitamin D3 Active Lisinopril Active Finasteride Active Omeprazole Active Gabapentin Active oxyCODONE HCl Active Encounters Encounter Location Date Provider Diagnosis [address] [address] 09/21/2024 Talha Soto Plan Of Treatment No Information Progress Notes * Daryn DUNCANDOB: [birth year] (70 yo M)Acc No.[id number]:09/21/2024 Progress Note Patient: Daryn WHITEHEAD Provider: Sly Soto DPM :1955 A ge:69 Y S ex:Male Date:09/21/2024 Address:[address] [id number] Pcp:Lloyd Woods MD Subjective: * Chief Complaints: [...] Date: 11/21/2023 Generated for Tiara solis/Stormy/Tiffanie on: 12/21/2024 10:06 PM EST
--- OUTSIDE RECORDS SUMMARY | 2024-10-12 09:15 | XMS_ITS ---
Author Organization [facility] Address [address] [place] [address] Care Team Providers Care Assistant Loan Processor Name Role Phone Chuck VEGA, Lloyd Primary Care Provider Unavailabl Talha Bess Unavailable [phone] Encounters Encounter Location Date Provider Diagnosis [address] [address] 10/12/2024 Talha Soto Plan Of Treatment No Information Progress Notes * Daryn DUNCANDOB: [birth year] (70 yo M)Acc No.[id number]:10/12/2024 Progress Note Patient: Daryn WHITEHEAD Provider: Sly Soto DPM :1955 A ge:69 Y S ex:Male Date:10/12/2024 [facility] Pcp:Lloyd Woods MD Subjective: * Chief Complaints: [...] Soto DPM Date: 12/13/2023 Generated for Tiara solis/Stormy/eTransmitting on: 12/21/2024 10:06 PM EST
[2025-10-20 14:41] VITALS: BP 128/72; PULSE 76; O2SAT 96; BMI 27.4
--- NOTE | 2025-10-20 14:41 | AM.OFFWIN_ITS ---
Intake Vital Signs 10/20/25 14:41 Height 5 ft 7 in Weight 175 lb BMI 27.4 BP 128/72 Blood Pressure Location Lt brachial Position Sitting Pulse 76 Pulse Source Pulse Oximeter Pulse Oximetry (%) 96 Oxygen Delivery Method Room Air Intake Visit Reasons: EP Right foot pain Intake Note: Patient presents c/o right foot pain related to a slip & fall at home yesterday. Patient Tobacco Use Status: Current everyday Tobacco user Allergies No Known Allergies Allergy (Verified 10/20/25 14:43) Do you need a note to return to daycare/school/sports/work: No HPI HPI Comments History of Present Illness Details 70 y/o male presents with right 5th toe pain after hitting his toe against a stool yesterday at home. Reports swelling and increased pain this morning. Pain worsens with range of motion and when wearing closed-toe shoes. Denies numbness, tingling, or open wounds. No prior injuries to the area. [facility] Medical History (Updated 10/20/25 @ 15:26 by Radha Joyce NP) Contusion of fifth toe, right Contusion of fifth toe, left Low libido Elevated PSA Arthritis Back pain Hx of radiation therapy HTN (hypertension) Colitis Colon cancer screening Nocturia Heartburn Muscle spasms of neck Pain management Opioid dependence Hypertension, essential GERD (gastroesophageal reflux disease) Smokers' cough Drug induced constipation COPD (chronic obstructive pulmonary disease) Tobacco abuse Asthma Failed back syndrome Surgical History H/O colonoscopy (~06/04/24) History of colonoscopy (04/10/10) History of rotator cuff surgery History of repair of laceration History of fusion of cervical spine History of laminectomy Family History Father HTN (hypertension) Lung cancer Mother HTN (hypertension) Dementia Breast cancer Maternal Grandmother No problems noted. Maternal Grandfather No problems noted. Paternal Grandfather No problems noted. Paternal Grandmother No problems noted. Brother Throat cancer Lung cancer Brother No problems noted. Daughter No problems noted. Daughter No problems noted. Sister Ovarian cancer Sister No problems noted. Sister No problems noted. Sister No problems noted. Maternal Aunt Breast cancer Social History Household Members: Family Housing: House Are you a primary resident caregiver to a significant other at home: No Do you presently have visiting nurse or other home services: No Alcohol intake: current Alcohol intake frequency: holidays/special occasions only Patient Tobacco Use Status: Current everyday Tobacco user Tobacco use type: Cigarette Cigarette Packs Per Day: 1.0 Cigarettes Per Day: 20.0 e-Cigarette/Vaping Use: Never Used service: No Current occupational status: disabled Cognitive needs: No Hearing needs: No Vision needs: Yes Review of Systems Const All systems reviewed & are unremarkable except as noted in HPI and below Physical Exam Vital Signs: Last Vital Signs Pulse 76 10/20/25 14:41 BP 128/72 10/20/25 14:41 Pulse Ox 96 10/20/25 14:41 Oxygen Delivery Method Room Air 10/20/25 14:41 BMI result Body Mass Index 27.4 Const General: no acute distress Nutritional Appearance: well nourished Orientation/consciousness: patient oriented x3 Neuro General: patient oriented x3, gait normal and moves all extremities Extrem Other: Right foot: Notable swelling and tenderness over the 5th toe. Mild ecchymosis present. Pain reproduced with flexion/extension of the toe. Limited ROM due to pain. No gross deformity. Sensation intact. Capillary refill <2 seconds. Pedal pulses 2+ bilaterally. No skin breaks or signs of infection. Psych Speech and movement: Normal speech and movement present Assessment & Plan Assessment & Plan (1) Contusion of fifth toe, right: Code(s): S90.121A - Contusion of right lesser toe(s) without damage to nail, initial encounter Qualifiers: Encounter type: initial encounter Qualified Code(s): S90.121A - Contusion of right lesser toe(s) without damage to nail, initial encounter Plan: Right 5th toe contusion vs. nondisplaced fracture Pain and swelling secondary to trauma Ordered right foot X-ray (focused on 5th toe) to rule out fracture. Mitch tape 4th and 5th toes. Recommended RICE: rest, ice 15?20 min every 2?3 hrs, compression as tolerated, elevate. OTC analgesics: Acetaminophen or ibuprofen for Pain relief. Avoid tight/closed shoes until symptoms improve. Educate on red-flag symptoms: increasing swelling, worsening pain, numbness/tingling, inability to bear weight. Orders: Orders XR toe RT min 2V Today S90.121A - Contusion of right lesser toe(s) without damage to nail, initial encounter Coding Level of Care Code Est Pt Level 4 (41317) Diagnoses Contusion of fifth toe of right foot, initial encounter S90.121A Encounter type: initial encounter Time Spent (min) 20
--- OUTSIDE RECORDS SUMMARY | 2025-10-20 22:06 | XMS_ITS | Patient Health Record ---
Author Organization [facility] [place] Address [address] [place] [address] Care Team Providers Care Facing Machine Operator Name Role Phone Chuck [facility] Primary Care Provider Talha Sanabria Unavailable [phone] Allergies No Known Allergies Reason For Referral No Information Medications Medication SIG (Take, Route, Fr equency, Duration) Notes Start Date End Date Status Montelukast Sodium A ctive amLODIPine Besylate Active Lisinopril Active Finasteride Active Omeprazole Active Gabapentin Active oxyCODONE HCl Active Anoro Ellipta Active Ciclopirox 0.77 % 1 application [employer] ally Twice a day; Duration: 365 days [...] Risk Notes Problem Fungal infection of nail ([id number]) Fungal infection of nail (B35.1) Active confirmed Rx management (4) Plan Of Treatment No Information Insurance Providers Payer Name Payer Address Payer Phone Subscriber Number Group Number Insured Name Patient Relationship to Insured Coverage Start Date Coverage End Date [facility] SCO Claims [address] [place] [id number] Daryn Duncan Self - patient is the insured Medical (General) History Medical History History ICD Code Arthritis asthma Back,Hip,and Knee pain Cancer Hypertension Stomach ulcer Measles Chicken pox Joint implants/screws Surgical History Surgery Date(Month/Year) neck surgery Lower back surgery shoulder surgery
--- OUTSIDE RECORDS SUMMARY | 2025-10-20 22:06 | XMS_ITS | Patient Health Record ---
Author Organization [facility] Address [address] [place] [address] Care Team Providers Care Digital Production Artist Name Role Phone Juan Irwin Unavailable [phone] Reason For Referral No Information Plan Of Treatment No Information
--- OUTSIDE RECORDS SUMMARY | 2025-10-20 22:06 | XMS_ITS | Clinical Summary ---
Author Organization [facility] Address [address] [place] [phone] Phone Care Team Providers Care Postulant Name Role Phone Lloyd Woods MD Primary Care Provider [phone] Allergies No known active allergies Medications No known medications Active Problems No known active problems Medical History Medical History Date Comments COPD (chronic obstructive pu lmonary disease) ([facility] V24, [facility] V28) DX:COPD (chronic o bstructive pulmonary disease) ([facility]) GERD (gastroesophageal reflux disease) DX:GERD (gastroesophageal reflux disease) Heart burn DX:Heart burn Drug induced constipation DX:Jair g induced constipation Failed back syndrome DX:Failed b ack syndrome Muscle spasm DX:Muscle spasm Essential (primary) hypertension DX:Essential (primary) hypertension Opioid dependence ([facility] V 24, [facility] V28) DX:Opioid dependence ([facility]) Prostate cancer ([facility] V24 , [facility] V28) Social History Tobacco Use Types Packs/Day [...] Orientation Straight 01/26/2025 8: 38 PM EDT Last Filed Vital Signs Vital Sign Reading [...] Insurance MEDICARE [place] - [place] Care Teams Postulant Relationship Specialty Start Date End Date Lloyd Woods MD [address] [place] [phone] PCP - General Internal Medicine 12/23/11
== END 2025-10-20 15:23 | disposition home or self-care (01) ==
PROVIDERS: PCP Internal Medicine; Visit Provider Nurse Practitioner Family
DX: S90.121A Contusion of right lesser toe(s) without damage to nail, initial encounter (principal)

== ENCOUNTER → 2025-10-20 15:24 | Outpatient (BNV) | payer MEDICARE, MEDICAID, SELFPAY | PROVIDERS: PCP Internal Medicine; Visit Provider Radiology Diagnostic Radiology | DX: S92.531A Displaced fracture of distal phalanx of right lesser toe(s), initial encounter for closed fracture (principal) | CPT/HCPCS: 73660 ==

== ENCOUNTER 2025-11-08 08:50 | Outpatient (AMB) | payer MEDICARE, MEDICAID, SELFPAY ==
--- OUTSIDE RECORDS SUMMARY | 2024-09-21 09:00 | XMS_ITS ---
Author Organization [facility] Address [address] [place] [address] Care Team Providers Care Supervisor Felting Name Role Phone Chuck VEGA, Lloyd Primary Care Provider Unavailabl Talha Bess Unavailable [phone] Medications Medication SIG (Take, Route, Fr equency, Duration) Notes Start Date End Date Status Montelukast Sodium A ctive amLODIPine Besylate Active Anoro Ellipta Active Ciclopirox 0.77 % 1 application Configuration Developer ally Twice a day; Duration: 365 days Active Vitamin D3 Active Lisinopril Active Finasteride Active Omeprazole Active Gabapentin Active oxyCODONE HCl Active Encounters Encounter Location Date Provider Diagnosis [address] [address] 09/21/2024 Talha Soto Plan Of Treatment No Information Progress Notes * Daryn DUNCANDOB: [birth year] (70 yo M)Acc No.[id number]:09/21/2024 Progress Note Patient: Daryn WHITEHEAD Provider: Sly Soto DPM :1955 A ge:69 Y S ex:Male Date:09/21/2024 Address[address] [id number] Pcp:Lloyd Woods MD Subjective: * Chief Complaints: * * Medical History: A rthritis, Asthma, Back,Hip,and Knee pain, Cancer, Hypertension, Stomach ulcer, Measles, Chicken pox, Joint implants/screws. * Medications: T aking Vitamin D3 , Taking Montelukast Sodium , Taking amLODIPine Besylate , Taking Lisinopril , Taking Finasteride , Taking Omeprazole , Taking Gabapentin , Taking oxyCODONE HCl , Taking Anoro Ellipta , Taking Ciclopirox 0.77 % Gel 1 application Externally Twice a day Objective: * Vitals: Assessment: Plan: * Treatment: * Images: * The named appointment provid er may or may not be the originator of this progress note, and it is not deemed complete until electronically signed by the appointment provider. Sign off status: Pending * Provider: Sly Soto DPM Date: 11/21/2023 Generated for Tiara solis/Stormy/Tiffanie on: 10:48 AM EST
--- OUTSIDE RECORDS SUMMARY | 2024-10-12 09:15 | XMS_ITS ---
Author Organization [facility] Address [address] [place] [address] Care Team Providers Care Ob Gyn Physician Assistant Name Role Phone Chuck VEGA, Lloyd Primary Care Provider Unavailabl Talha Bess Unavailable [phone] Encounters Encounter Location Date Provider Diagnosis [facility] [address] [place] [address] 10/12/2024 Talha Soto Plan Of Treatment No Information Progress Notes * Daryn DUNCANDOB: [birth year] (70 yo M)Acc No.[id number]:10/12/2024 Progress Note Patient: Daryn WHITEHEAD Provider: Sly Soto DPM :1955 A ge:69 Y S ex:Male Date:10/12/2024 [facility] Pcp:Lloyd Woods MD Subjective: * Chief Complaints: [...] Soto DPM Date: 12/13/2023 Generated for Tiara solis/Favy/eTransmitting on: 10:48 AM EST
--- NOTE | 2025-11-08 08:52 | A.OFFPC_ITS ---
Vital Signs 11/08/25 08:54 Height 5 ft 7 in Weight 178 lb BMI 27.9 BP 130/66 Blood Pressure Location Rt brachial Position Sitting Pulse 71 Pulse Source Pulse Oximeter Pulse Oximetry (%) 93 Oxygen Delivery Method Room Air Intake Visit Reasons: 3m med visit Allergies No Known Allergies Allergy (Verified 11/08/25 08:54) Medication List - Last Reconciled 11/08/25 by Lloyd Woods MD albuterol sulfate 90 mcg/actuation 2 puffs inhalation Q4-6H PRN amitriptyline 25 mg PO BEDTIME 90 days amlodipine 5 mg PO DAILY 90 days Anoro Ellipta 62.5-25 mcg/actuation (umeclidinium-vilanterol) 1 inh inhalation DAILY NS cetirizine (Zyrtec) 10 mg PO DAILY PRN cholecalciferol (vitamin D3) 25 mcg PO DAILY 90 days fentanyl 37.5 mcg/hour 1 patch transdermal Q72H 30 days fluticasone furoate 27.5 mcg/actuation (Flonase Sensimist) 1 spray intranasal DAILY 30 days gabapentin 300 mg PO BID ipratropium-albuterol 0.5 mg-3 mg(2.5 mg base)/3 mL 3 mL inhalation Q6-8H PRN 30 days leuprolide acetate (6 month) (Eligard) 45 mg subcut [id number] lisinopril 40 mg PO DAILY 90 days montelukast 10 mg PO DAILY 90 days nebulizers (VixOne Nebulizer-Adult Mask) As directed omeprazole 20 mg PO DAILY sucralfate (Carafate) 10 mL PO Q6H 10 days sumatriptan succinate 50 mg PO .qd PRN 30 days Tobacco use date assessed: 11/08/25 Fall risk assessment: No Falls in past year Last assessed Fall Risk: 11/08/25 Dental Screening Dental Screen Date: 11/08/25 Did you have a dental visit in the last 12 months?: No Did you have a dental problem in the last 6 months where you did not have access to dental care?: No Was dental information given to patient?: Patient has dentist HPI HPI Comments History of Present Illness Details History of Present Illness The patient is a 70 year old male presenting for management of chronic pain, follow-up on a broken toe right 5th digit, and medication refills. Failed Back Syndrome and Chronic Pain: - The patient has failed back syndrome a nd reports always having back pain. - He is treated with a fentanyl 37.5 mcg patch and reports doing much better than when he was on oxycodone 10 mg three times a day. - He feels the patch wears off in two da ys. - He inquired about adding oxycodone 5 m g, but this was previously declined to avoid the complexity of managing two types of pain medication. - He also takes gabapentin 300 mg. Fracture of Fifth Toe: - On October 20, the patient sustained a fracture of his pinky toe after hitting it on an ottoman. - He was evaluated at a walk-in clinic w here an x-ray was performed, which showed a minimally displaced intraarticular fracture of the distal phalanx of the fifth digit. - He was given a shoe to wear but did no t use it. - He reports the toe is still causing hi m pain and has been taping it to the other toes, which sometimes increases the pain if taped too tightly. - The toe initially turned black and pur ple and is now red. - The patient admits he has not been abl e to stay off the injured foot. Hypertension: - The patient's blood pressure is stable on lisinopril 40 mg. - He also takes amlodipine. - During the visit, he requested his lis inopril prescription to be re-sent to the pharmacy as they had returned it to the shelf. Chronic Obstructive Pulmonary Disease: - The patient has COPD and continues to smoke. - He is followed by a pulmonary speciali st, Dr. Amaya. - His medication regimen includes Anoro Ellipta, albuterol as needed, and ipratropium/albuterol as needed. - He reports trying to use his inhaler d aily. Medical History: - Failed back syndrome - Chronic Obstructive Pulmonary Disease - Hypertension - Migraine headaches - Allergies - Fracture of the fifth toe, sustained o n October 20 Medications: - Fentanyl patch 37.5 mcg for chronic pa in - Gabapentin 300 mg - Amlodipine 25 mg for migraine headache prevention - Anoro Ellipta for COPD - Albuterol as needed for COPD - Ipratropium/albuterol nebulizer as nee ded for COPD - Montelukast 10 mg for allergies - Lisinopril 40 mg for hypertension Social History: - Tobacco Use: Patient continues to smok e. - Alcohol Use: Reports drinking a couple of beers occasionally. Diagnostic Results: - X-ray of the foot: Revealed a minimall y displaced intraarticular distal phalangeal fracture of the proximal phalanx, fifth digit. COUNTS INCLUDE 234 BEDS AT THE [facility] Medical History Contusion of fifth toe, right Contusion of fifth toe, left Low libido Elevated PSA Arthritis Back pain Hx of radiation therapy HTN (hypertension) Colitis Colon cancer screening Nocturia Heartburn Muscle spasms of neck Pain management Opioid dependence Hypertension, essential GERD (gastroesophageal reflux disease) Smokers' cough Drug induced constipation COPD (chronic obstructive pulmonary disease) Tobacco abuse Asthma Failed back syndrome Surgical History H/O colonoscopy (~06/04/24) History of colonoscopy (04/10/10) History of rotator cuff surgery History of repair of laceration History of fusion of cervical spine History of laminectomy Family History Father HTN (hypertension) Lung cancer Mother HTN (hypertension) Dementia Breast cancer Maternal Grandmother No problems noted. Maternal Grandfather No problems noted. Paternal Grandfather No problems noted. Paternal Grandmother No problems noted. Brother Throat cancer Lung cancer Brother No problems noted. Daughter No problems noted. Daughter No problems noted. Sister Ovarian cancer Sister No problems noted. Sister No problems noted. Sister No problems noted. Maternal Aunt Breast cancer Social History Household Members: Family Housing: House Are you a primary care director rn to a significant other at home: No Do you presently have visiting nurse or other home services: No Alcohol intake: current Alcohol intake frequency: holidays/special occasions only Patient Tobacco Use Status: Current everyday Tobacco user Tobacco use type: Cigarette Cigarette Packs Per Day: 1.0 Cigarettes Per Day: 20.0 e-Cigarette/Vaping Use: Never Used service: No Current occupational status: disabled Cognitive needs: No Hearing needs: No Vision needs: Yes Questionnaire PHQ-9 Over the last 2 weeks, how often have you been bothered by any of the following problems? 1. Little interest or pleasure in doing things: several days 2. Feeling down, depressed, or hopeless: several days 3. Trouble falling or staying asleep, or sleeping too much: not at all 4. Feeling tired or having little energy: several days 5. Poor appetite or overeating: not at all 6. Feeling bad about yourself - or that you are a failure or have let yourself or your family down: not at all 7. Trouble concentrating on things, such as reading the newspaper or watching television: not at all 8. Moving or speaking so slowly that other people could have noticed. Or the opposite - being so fidgety or restless that you have been moving around a lot more than usual: not at all 9. Thoughts that you would be better off or of hurting yourself in some way: not at all Total score: 3 Depression Screening Interpretation: Negative Depression Screening Done: Yes 78268 - PHQ-9 Billing: Yes Source: Developed by Drs. Juan Motley, Blanca Manzo, Kelton Mooney and colleagues, with an educational homa from [employer]. Thrive Questionnaire Date Thrive assessed: 11/08/25 I am a: Patient What is your living situation today?: I have a steady place to live Within the past 12 months, did the food you bought not last and you didn't have the money to get more?: I choose not to answer this question Within the past 12 months, did you worry whether your food would run out before you got money to buy more?: Never true Do you have trouble paying for medicines?: No Do you have trouble getting transportation to medical appointments?: Yes Do you have trouble paying your heating and electricity bill?: No Do you have trouble taking care of your child, family member or friend?: No Do you have trouble with day-to-day activities such as bathing, preparing meals, shopping, managing finances, etc.?: No Are you currently unemployed and looking for a job?: No Are you interested in more education?: No Please select the resources that you would like help with: None Currently or been in a relationship where the following occur: I choose not to answer THRIVE Score: 1 AUDIT C Alcohol Use Questionnaire (AUDIT-C) 1. How often do you have a drink containing alcohol?: 2-4 times a month 2. How many drinks containing alcohol do you have on a typical day when you are drinking?: 1 or 2 3. How often do you have six or more drinks on one occasion?: Never Total Score: 2 Score Reviewed/Action Taken: Yes VIVIANA-7 AMB Questionnaire VIVIANA-7 Date VIVIANA - 7 assessed: 01/07/25 Source: Developed by Drs. Juan Motley, Blanca Manzo, Kelton Mooney and colleagues, with an educational homa from [employer]. Review of Systems Narrative Review of Systems - General: No fever no chills - Neurological: No headaches no dizziness - Ear nose throat: No sore throat no hearing difficulty no ear pain - Cardiovascular: No syncope, no chest pain, no palpitations - Gastrointestinal: No nausea vomiting or diarrhea - Endocrine: No polyuria polydipsia no heat intolerance - Genitourinary: No dysuria , no blood in urine Physical exam (Primary Care) Vital Signs: Last Vital Signs Pulse 71 11/08/25 08:54 BP 130/66 11/08/25 08:54 Pulse Ox 93 11/08/25 08:54 Oxygen Delivery Method Room Air 11/08/25 08:54 BMI result Body Mass Index 27.9 Tobacco/Smoking Status: Tobacco use Status Tobacco use date assessed 11/08/25 11/08/25 08:55 Patient Tobacco Use Status Current everyday Tobacco 11/08/25 08:53 Tobacco use type Cigarette 11/08/25 08:53 e-Cigarette/Vaping Use Never Used 11/08/25 08:53 PHQ-9: PHQ-9 Score PHQ-9: Total score 3 11/08/25 09:02 Depression Screening Interpretation: Negative Thrive Assessment: Date of Thrive Assessment Date Thrive assessed 11/08/25 11/08/25 08:55 Currently or been in a relationship where the following occur: I choose not to answer Narrative Physical Exam General: No acute distress HEENT: No acute findings Neck: Supple Respiratory system: Able to talk in full sentences, no audible wheeze, airways are open Cardiovascular: S1-S2 regular in rate and rhythm Gastrointestinal: No pain Extremities: Minimally displaced intraarticular distal phalangeal fracture of the proximal phalanx fifth digit (pinky toe), red in color minimally swollen, sensory intact, vascular intact 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 awake oriented x3 motor intact Skin: Normal turgor Coding Level of Care Code Est Pt Level 4 (80117) Add On Problem Visit Only Diagnoses Closed fracture of phalanx of right fifth toe with routine healing, subsequent encounter S92.501D Encounter type: subsequent encounter Fracture healing: with routine healing Hypertension, essential I10 Mixed simple and mucopurulent chronic bronchitis J41.8 COPD type: chronic bronchitis Chronic bronchitis type: mixed simple and mucopurulent Uncomplicated opioid dependence F11.20 Substance use status: uncomplicated Migraine with aura and without status migrainosus, not intractable G43.109 Status migrainosus presence: without status migrainosus Intractability: not intractable Failed back syndrome M96.1 Cigarette nicotine dependence without complication F17.210 Nicotine product type: cigarettes Substance use status: uncomplicated Pain management R52 Muscle spasms of neck M62.838 Environmental allergies Z91.09 Impaired fasting blood sugar R73.01 Vitamin D deficiency E55.9 Gastroesophageal reflux disease without esophagitis K21.9 Esophagitis presence: without esophagitis Additional Codes PHQ-9 - 74505 - PHQ-9 Billing: Yes ([id number]) Time Spent (min) 30 Assessment & Plan Assessment & Plan (1) Closed fracture of fifth toe of right foot: Code(s): S92.501A - Displaced unspecified fracture of right lesser toe(s), initial en counter for closed fracture Category: Medical Qualifiers: Encounter type: subsequent encounter Fracture healing: with routine healing Qualified Code(s): S92.501D - Displaced unspecified fracture of right lesser toe(s), subsequent encounter for fracture with routine healing (2) Hypertension, essential: Code(s): I10 - Essential (primary) hypertension Category: Medical (3) COPD (chronic obstructive pulmonary disease): Code(s): J44.9 - Chronic obstructive pulmonary disease, unspecified Category: Medical Qualifiers: COPD type: chronic bronchitis Chronic bronchitis type: mixed simple and mucopurulent Qualified Code(s): J41.8 - Mixed simple and mucopurulent chronic bronchitis (4) Opioid dependence: Comment: CONTROLLED NATURE OF MEDICATION WAS DISCUSSED, IT IS IMPORTANT TO NOTIFY ME OF CHANGE OF PHARMACY, OR IF TRAVELING. DO NOT SHARE THE MEDICATION WITH ANYBODY, KEEP IT SAFE AWAY FROM THE HANDS OF SMALL CHILDREN, AND ONLY TAKE IT PRESCRIBED. THIS MEDICATION HAVE A TENDENCY TO BE ABUSED, HABIT-FORMING, AND IT CAN CAUSE SEVERE CONSTIPATION ALONG WITH OTHER ALLERGIC REACTIONS. LONG-TERM USE OF NARCOTIC MEDICATIONS HAVE SHOWN TO INCREASE SENSITIVITY TO PAIN. Code(s): F11.20 - Opioid dependence, uncomplicated Category: Medical Qualifiers: Substance use status: uncomplicated Qualified Code(s): F11.20 - Opioid dependence, uncomplicated (5) Migraine with aura: Code(s): G43.109 - Migraine with aura, not intractable, without status migrainosus Category: Medical Qualifiers: Status migrainosus presence: without status migrainosus Intractability: not intractable Qualified Code(s): G43.109 - Migraine with aura, not intrac table, without status migrainosus (6) Failed back syndrome: Code(s): M96.1 - Postlaminectomy syndrome, not elsewhere classified Category: Medical (7) Nicotine dependence: Code(s): F17.200 - Nicotine dependence, unspecified, uncomplicated Category: Medical Qualifiers: Nicotine product type: cigarettes Substance use status: uncomplicated Qualified Code(s): F17.210 - Nicotine dependence, cigarettes, uncomplicated (8) Pain management: Code(s): R52 - Pain, unspecified Category: Medical (9) Muscle spasms of neck: Code(s): M62.838 - Other muscle spasm Category: Medical (10) Environmental allergies: Code(s): Z91.09 - Other allergy status, other than to drugs and biological substances Category: Medical (11) Impaired fasting blood sugar: Code(s): R73.01 - Impaired fasting glucose Category: Medical (12) Vitamin D deficiency: Code(s): E55.9 - Vitamin D deficiency, unspecified Category: Medical (13) GERD (gastroesophageal reflux disease): Code(s): K21.9 - Gastro-esophageal reflux disease without esophagitis Category: Medical Qualifiers: Esophagitis presence: without esophagitis Qualified Code(s): K21.9 - Gastro-esophageal reflux disease without esophagitis Plan Problem List - Failed back syndrome - Minimally displaced intraarticular fracture of the distal phalanx of the fifth digit of the foot - Chronic Obstructive Pulmonary Disease - Hypertension - Migraine headaches - Allergies Plan - 1. Chronic Pain Management: The plan to change the fentanyl patch to every two days was discussed; the patient will need to check with his insurance. - For now, the current dosing system will be maintained to avoid disruption. - 2. Fifth Toe Fracture: Reassured the patient that the fracture will take approximately 4-6 weeks to become pain-free. - Advised to avoid taping the toe too tightly and suggested using an Juan wrap f or protection. - Emphasized the importance of rest, although the patient finds it difficult to stay off his feet. - 3. Medication Refills: A new prescription for lisinopril will be sent to the pharmacy. - 4. Follow-up: The patient will return for a follow-up appointment on December 06. Medications: Refilled lisinopril 40 mg PO DAILY 90 tabs 3RF 90 days fentanyl 37.5 mcg/hour Partial Fill upon patient request. 1 patch transdermal Q72H 10 ea 0RF 30 days F11.20 - Opioid dependence, uncomplicated, M96.1 - Postlaminectomy syndrome, not elsewhere classified gabapentin 300 mg PO BID 60 caps 0RF
[2025-11-08 08:54] VITALS: BP 130/66; PULSE 71; O2SAT 93; BMI 27.9
--- OUTSIDE RECORDS SUMMARY | 2025-11-08 10:48 | XMS_ITS | Clinical Summary ---
Author Organization [facility] Address [address] [place] [address] Phone Care Team Providers Care Golf Caddy Name Role Phone Lloyd Woods MD Primary Care Provider [phone] Allergies No known active allergies Medications No known medications Active Problems No known active problems Medical History Medical History Date Comments COPD (chronic obstructive pu lmonary disease) [place] [place] [facility] [place] DX:COPD (chronic o bstructive pulmonary disease) ([facility]) GERD (gastroesophageal reflux disease) DX:GERD (gastroesophageal reflux disease) Heart burn DX:Heart burn Drug induced constipation DX:Jair g induced constipation Failed back syndrome DX:Failed b ack syndrome Muscle spasm DX:Muscle spasm Essential (primary) hypertension DX:Essential (primary) hypertension Opioid dependence ([facility] [place], [facility] [place]28) DX:Opioid dependence ([facility]) Prostate cancer ([facility] [place] , [facility] [place]28[place] Social History Tobacco Use Types Packs/Day [...] Insurance MEDICARE [place]ICA[place] - [place] Care Teams Golf Caddy Relationship Specialty Start Date End Date Lloyd Woods MD [address] [place] [id number] PCP - General Internal Medicine 12/23/11
--- OUTSIDE RECORDS SUMMARY | 2025-11-08 10:49 | XMS_ITS | Patient Health Record ---
Author Organization [facility] [place] Address [address] [place] [address] Care Team Providers Care General Ledger Bookkeeper Name Role Phone [facility], [facility] Primary [facility] Provider Talha Sanabria Unavailable [phone] Allergies No Known Allergies Reason For Referral No Information Medications Medication SIG (Take, Route, Fr equency, Duration) Notes Start Date End Date Status Montelukast Sodium A ctive amLODIPine Besylate Active Lisinopril Active Finasteride Active Omeprazole Active Gabapentin Active oxyCODONE HCl Active Anoro Ellipta Active Ciclopirox 0.77 % 1 application Licensed Massage Practitioner ally Twice a day; Duration: 365 days [...] Risk Notes Problem Fungal infection of nail ([id number]) Fungal infection of nail (B35.1) Active confirmed Rx management (4) Plan Of Treatment No Information Insurance Providers Payer Name Payer Address Payer Phone Subscriber Number Group Number Insured Name Patient Relationship to Insured Coverage Start Date Coverage End Date [facility] [employer] Claims [address] [place] [id number] Daryn Duncan Self - patient is the insured Medical (General) History Medical History History ICD Code Arthritis asthma Back,Hip,and Knee pain Cancer Hypertension Stomach ulcer Measles Chicken pox Joint implants/screws Surgical History Surgery Date(Month/Year) neck surgery Lower back surgery shoulder surgery
== END 2025-11-08 09:20 | disposition home or self-care (01) ==
PROVIDERS: PCP Internal Medicine; Visit Provider Internal Medicine
DX: S92.501D Displaced unspecified fracture of right lesser toe(s), subsequent encounter for fracture with routine healing (principal); I10 Essential (primary) hypertension; J41.8 Mixed simple and mucopurulent chronic bronchitis; F11.20 Opioid dependence, uncomplicated; G43.109 Migraine with aura, not intractable, without status migrainosus; M96.1 Postlaminectomy syndrome, not elsewhere classified; F17.210 Nicotine dependence, cigarettes, uncomplicated; R52 Pain, unspecified; M62.838 Other muscle spasm; Z91.09 Other allergy status, other than to drugs and biological substances; R73.01 Impaired fasting glucose; E55.9 Vitamin D deficiency, unspecified; K21.9 Gastro-esophageal reflux disease without esophagitis

== ENCOUNTER → 2025-11-08 08:50 | Outpatient (BNVA) | payer MEDICARE, MEDICAID, SELFPAY | PROVIDERS: PCP Internal Medicine; Visit Provider Internal Medicine | DX: S92.501D Displaced unspecified fracture of right lesser toe(s), subsequent encounter for fracture with routine healing (principal); I10 Essential (primary) hypertension; J41.8 Mixed simple and mucopurulent chronic bronchitis; F11.20 Opioid dependence, uncomplicated; G43.109 Migraine with aura, not intractable, without status migrainosus; M96.1 Postlaminectomy syndrome, not elsewhere classified; R52 Pain, unspecified; M62.838 Other muscle spasm; Z91.09 Other allergy status, other than to drugs and biological substances; R73.01 Impaired fasting glucose; E55.9 Vitamin D deficiency, unspecified; K21.9 Gastro-esophageal reflux disease without esophagitis; F17.210 Nicotine dependence, cigarettes, uncomplicated; Z71.6 Tobacco abuse counseling | CPT/HCPCS: 96127; 99212 ==